=== PATIENT | female | born 1940 | race Caucasian/White ===

== ENCOUNTER 2023-04-05 08:27 | Outpatient (OUT) | payer MEDICARE, SELFPAY ==
--- NOTE | 2023-04-05 08:35 | MR_ITS ---
The [address] [address] Patient Name: LOLA ANDINO MRN: [id number] date: 1940 Sex: F Assigned Patient Location: MRI Current Patient Location: MRI Accession/Order Number: [id number] Exam Date: 04/05/2023 09:05 Report Date: 04/05/2023 11:08 At the request of: HALIMA HONG Procedure: MR head/brain wo/w con MR head/brain wo/w con COMPARISON: None. CLINICAL HISTORY: Dizziness. Right-sided hearing loss. Tinnitus PULSE SEQUENCES: Sag T1, Ax DWI, Ax T2, Ax FLAIR, Ax T2 3D, Cor T1 3 mm, Ax T1 3 mm + C, Cor T1 + C, Ax T1 + C GADOLINIUM DOSAGE: 13 cc [place] FINDINGS: There is no diffusion abnormality. There is mild parenchymal volume loss. There is mild to moderate T2 hyperintensity in the central and periventricular white matter. Additional T2 signal change of the basal ganglia and nat. 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 There is no mass, mass effect, nor hydrocephalus. The vascular flow voids are tortuous but patent. Postcontrast, there is no abnormal enhancement. The dural sinuses are patent The internal auditory canals appear symmetric. Normal signal in the cochlea and semicircular canals. The mastoid air cells are patent. Postcontrast, there is no abnormal enhancement. The orbits, sella and craniocervical junction are unremarkable. MR/MR head/brain wo/w con IMPRESSION: NO MRI EVIDENCE FOR ACUTE ISCHEMIA. MILD TO MODERATE T2 HYPERINTENSITY IN THE WHITE MATTER, BASAL GANGLIA, AND NAT. MOST LIKELY SEQUELA SMALL VESSEL ISCHEMIC CHANGE OR OTHER BENIGN PROCESS. UNREMARKABLE MR APPEARANCE OF THE INTERNAL AUDITORY CANALS Electronically authenticated by: DAVID ZIMMERMAN Date: 04/05/2023 11:08
[2023-04-05 09:56] LABS: Estimated GFR (African America >60 (>=60); Estimated GFR (Non-African Ame >60 (>=60)
== END 2023-04-05 08:28 | disposition home or self-care (01) ==
LOC: MRI 08:27
PROVIDERS: PCP Internal Medicine; Visit Provider Internal Medicine
DX: R42 Dizziness and giddiness (principal); H90.A21 Sensorineural hearing loss, unilateral, right ear, 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; H93.11 Tinnitus, right ear; G44.039 Episodic paroxysmal hemicrania, not intractable
CPT/HCPCS: 36415; 70553; 82565; A9575

== ENCOUNTER 2023-05-17 08:12 | Outpatient (OUT) | payer MEDICARE, SELFPAY ==
--- NOTE | 2023-05-17 08:32 | CT_ITS ---
The [address] [address] Patient Name: LOLA ANDINO MRN: [id number] date: 1940 Sex: F Assigned Patient Location: LAB Current Patient Location: LAB Accession/Order Number: [id number] Exam Date: 05/17/2023 08:26 Report Date: 05/17/2023 11:20 At the request of: HALIMA HONG Procedure: CT chest wo con EXAM: CT chest wo con HISTORY: Pulmonary Nodule R961.1 COMPARISON: 04/06/2022 TECHNIQUE: Axial CT images were obtained of the chest without intravenous contrast. Multiplanar reconstructions were performed. CHEST FINDINGS: Lungs/Pleura: The lungs are clear. Stable pleural-based pulmonary nodule in the left lower lobe on image 60 of series 4 measuring 5.2 mm. A couple of calcified pulmonary nodules are present, likely due to remote granulomatous disease. No pleural effusion or pneumothorax. Cardiovascular: The heart is normal in size. Mild to moderate coronary artery calcifications are present. The aorta and pulmonary arteries are unremarkable. Pericardium: There is a trace pericardial effusion. Mediastinum: Unremarkable. Lymph Nodes: No lymph node enlargement identified on this nonenhanced CT. Calcified lymph nodes are present in the hilar regions bilaterally, likely due to remote granulomatous disease. Bones: No acute osseous abnormality. Mild to moderate multilevel degenerative changes are present in the thoracic spine. Soft tissues: Unremarkable. Upper Abdomen: Unremarkable. CT/CT chest wo con IMPRESSION: 1. No acute abnormality of the chest. 2. Stable pulmonary nodules. Electronically authenticated by: TOREY JEWELL Date: 05/17/2023 11:20
[2023-05-17 08:40] LABS: Basophils Absolute Auto 0.1 10^3/uL (0.0-0.1); Basophils Percent Auto 1.1 % (0.2-2.0); Eosinophils Absolute Auto 0.2 10^3/uL (0.0-0.7); Eosinophils Percent Auto 3.6 % (0.9-7.0); Hematocrit 36.4 % (36.0-48.0); Lymphocytes Absolute Auto 1.4 10^3/uL (1.2-3.8); Mean Corpuscular Hemoglobin 32.8 pg (26.7-34.0); Mean Corpuscular Volume 99.5 fL (81.0-99.0); Mean Platelet Volume 10.6 fL (9.5-13.5); Monocytes Absolute Auto 0.4 10^3/uL (0.3-0.8); Monocytes Percent Auto 9.1 % (1.7-12.0); Neutrophils Absolute Auto 2.7 10^3/uL (1.4-6.5); Neutrophils Percent Auto 56.2 % (43.0-75.0); Platelet Count 307 10^3/uL (150-450); Red Blood Count 3.66 10^6/uL (4.20-5.40); Red Cell Distribution Width 12.3 % (11.0-15.0); White Blood Count 4.7 10^3/uL (4.0-11.0)
[2023-05-17 09:15] LABS: Anion Gap 12.9; BUN Creatinine Ratio 28.8; Calcium 8.9 mg/dL (8.5-10.1); Carbon Dioxide 28.8 mmol/L (21.0-32.0); Chloride 105 mmol/L (98-107); Chol HDL Ratio 3.1; Cholesterol 217 mg/dL (<=200); Estimated GFR (African America >60 (>=60); Estimated GFR (Non-African Ame >60 (>=60); Glucose 107 mg/dL (74-106); HDL Cholesterol 69 mg/dL (40-60); Potassium 3.7 mmol/L (3.5-5.1); Sodium 143 mmol/L (136-145); Thyroid Stimulating Hormone 3.366 uIU/mL (0.358-3.740); Triglycerides 110 mg/dL (<=150)
[2023-05-17 13:54] LABS: Free T4 1.08 ng/dL (0.76-1.46)
[2023-05-18 04:07] LABS: Triiodothyronine (T3) 136 ng/dL (71-180)
== END 2023-05-17 08:13 | disposition home or self-care (01) ==
LOC: LAB 08:12
PROVIDERS: PCP Internal Medicine; Visit Provider Internal Medicine
DX: R79.89 Other specified abnormal findings of blood chemistry (principal); E78.00 Pure hypercholesterolemia, unspecified; I10 Essential (primary) hypertension; Z79.899 Other long term (current) drug therapy; R91.1 Solitary pulmonary nodule
CPT/HCPCS: 36415; 71250; 80048; 80061; 84439; 84443; 84480; 85025

== ENCOUNTER 2023-07-29 08:15 | Outpatient (OUT) | payer MEDICARE, SELFPAY ==
--- NOTE | 2023-07-29 08:28 | MR_ITS ---
The [address] [address] Patient Name: LOLA ANDINO MRN: [id number] date: 1940 Sex: F Assigned Patient Location: LAB Current Patient Location: LAB Accession/Order Number: [id number] Exam Date: 07/29/2023 08:45 Report Date: 07/29/2023 16:49 At the request of: OMAR GUNTER Procedure: MR head/brain wo/w con EXAM: MRI brain and internal auditory canals with and without contrast. HISTORY: Sensorineural hearing loss on left. COMPARISON: MRI brain and internal auditory canals with and without contrast, 04/05/2023. TECHNIQUE: Multiplanar, multisequence MRI imaging of the brain and internal auditory canals with and without contrast. FINDINGS: There is moderate mucosal thickening of the left maxillary sinus. Mastoid air cells are clear. Nasopharynx is normal. Director Of Learning spaces are normal. Prior cataract surgery. Mild brain atrophy is stable. Large amount of chronic microvascular ischemic change again seen in the cerebral white matter. This is stable from the prior. No diffusion restriction. No acute ischemic infarction. No pathologic enhancement within the brain. No brain masses. There is no abnormal signal or pathologic enhancement in the internal auditory canals or inner ear structures. Cerebellopontine angles are unremarkable. No pathologic cranial nerve enhancement. No masses. MR/MR head/brain wo/w con IMPRESSION: 1. The internal auditory canals and cerebellopontine angle cisternal spaces are normal. 2. No acute infarction. Chronic microvascular ischemic changes stable. 3. No pathologic enhancement in the brain. No brain mass. Electronically authenticated by: KENZIE CARNES Date: 07/29/2023 16:49
[2023-07-29 08:29] LABS: Estimated GFR (African America >60 (>=60); Estimated GFR (Non-African Ame >60 (>=60)
== END 2023-07-29 08:16 | disposition home or self-care (01) ==
LOC: LAB 08:15
PROVIDERS: PCP Internal Medicine; Visit Provider Otolaryngology
DX: H90.3 Sensorineural hearing loss, bilateral (principal); H93.12 Tinnitus, left ear
CPT/HCPCS: 36415; 70553; 82565; A9575

== ENCOUNTER 2023-11-09 14:54 | Outpatient (OUT) | payer MEDICARE, SELFPAY ==
[2023-11-09 16:17] LABS: Basophils Percent Auto 0.8 % (0.2-2.0); Eosinophils Absolute Auto 0.2 10^3/uL (0.0-0.7); Eosinophils Percent Auto 3.6 % (0.9-7.0); Hematocrit 36.2 % (36.0-48.0); Hemoglobin 11.9 g/dL (12.0-16.0); Immature Granulocytes Abs Auto 0.01 10^3/uL (0.00-0.03); Immature Granulocytes Pct Auto 0.2 % (0.0-0.5); Lymphocytes Absolute Auto 1.4 10^3/uL (1.2-3.8); Lymphocytes Percent Auto 27.2 % (20.5-60.0); Mean Corpuscular HGB Conc 32.9 g/dL (29.9-35.2); Mean Corpuscular Hemoglobin 32.5 pg (26.7-34.0); Mean Corpuscular Volume 98.9 fL (81.0-99.0); Mean Platelet Volume 11.2 fL (9.5-13.5); Monocytes Absolute Auto 0.5 10^3/uL (0.3-0.8); Monocytes Percent Auto 9.5 % (1.7-12.0); Neutrophils Percent Auto 58.7 % (43.0-75.0); Platelet Count 336 10^3/uL (150-450); Red Blood Count 3.66 10^6/uL (4.20-5.40); Red Cell Distribution Width 12.3 % (11.0-15.0); White Blood Count 5.1 10^3/uL (4.0-11.0)
[2023-11-09 16:50] LABS: Alanine Aminotransferase 20 U/L (14-59); Albumin Globulin Ratio 1.2; Albumin Level 3.7 g/dL (3.4-5.0); Alkaline Phosphatase 152 U/L (46-116); Anion Gap 9.8; Aspartate Amino Transferase 15 U/L (15-37); BUN Creatinine Ratio 25.3; Bilirubin Total 0.2 mg/dL (0.2-1.0); Calcium 9.1 mg/dL (8.5-10.1); Carbon Dioxide 30.6 mmol/L (21.0-32.0); Chloride 105 mmol/L (98-107); Estimated GFR (African America >60 (>=60); Estimated GFR (Non-African Ame >60 (>=60); Globulin 3.2 g/dL; Glucose 107 mg/dL (74-106); Potassium 3.4 mmol/L (3.5-5.1); Sodium 142 mmol/L (136-145); Thyroid Stimulating Hormone 1.941 uIU/mL (0.358-3.740); Total Protein 6.9 g/dL (6.4-8.2)
== END 2023-11-09 14:55 | disposition home or self-care (01) ==
LOC: LAB 14:54
PROVIDERS: PCP Internal Medicine; Visit Provider Internal Medicine
DX: R53.83 Other fatigue (principal); I10 Essential (primary) hypertension; J47.9 Bronchiectasis, uncomplicated
CPT/HCPCS: 36415; 80053; 84443; 85025

== ENCOUNTER 2023-11-11 09:07 | Outpatient (OUT) | payer MEDICARE, SELFPAY ==
--- OUTSIDE RECORDS SUMMARY | 2023-11-11 09:12 | XMS_ITS | CCD ---
Author Organization [facility] Care Team Providers Care Mechanical Applications Engineer Name Role Phone PREET, DR VARGHESE Admitting Unavailable BALL, DR VARGHESE Attending Unavailable BALL, DR VARGHESE Primary Care Unavailable BALL, DR VARGHESE Consulting Unavailable BALL, DR VARGHESE Admitting Unavailable BALL, DR VARGHESE Attending Unavailable BALL, DR VARGHESE Primary Care Unavailable BALL, DR VARGHESE Consulting Unavailable WEST, DR MALCOM Correia Consulting Unavailable BALL, DR VARGHESE Admitting Unavailable BALL, DR VARGHESE Attending Unavailable BALL, DR VARGHESE Primary Care Unavailable PREET, DR VARGHESE Consulting Unavailable PREET, DR VARGHESE Admitting Unavailable BALL, DR VARGHESE Attending Unavailable BALL, DR VARGHESE Primary Care Unavailable BALL, DR VARGHESE Consulting Unavailable Preet, Lg Unavailable LORI GUNTER Attending Unavailable PREET, LG Bishop Referring Unavailable LORI GUNTER Attending Unavailable Allergies Allergy Classification Reported Allergen(s) Allergy Type Date of Onset Reaction(s) Facility (2 sources) Clindamycin Drug Allergy 3 [facility] Repository (12 sources) Penicillin Drug Allergy Unknown [facility] (12 sources) Aspirin Drug Allergy 5 Unknown [facility] (12 sources) Ciprofloxacin Drug Allergy 5 Unknown [facility] (11 sources) Clindamycin Drug Allergy Unknown [facility] Other (12 sources) Ibuprofen Drug Allergy 5 Unknown [facility] (11 sources) Fluticasone Propionate *NASAL AGENTS - SYSTEMIC AN Propensity to adverse reactions 5 Unknown [facility] Other (1 source) Penicillins Allergy to substance 3 [facility] (1 source) Fluticasone Propionate *NASAL Allergy to substance 3 [facility] Medications Current Medications Medication Drug Class(es) Dates Sig (Normalized) Sig (Original) amLODIPine 5 mg oral tablet (5 sources) Dihydropyridine Calcium Channel Meena Start: 05-10-2023 take 1 tablet by mouth every twenty-four hours amLODIPine Besylate 5 MG 1 tablet Orally Once a day for 30 days Apr, Active diazePAM 5 mg oral tablet (5 sources) Benzodiazepine Start: 04-01-2023 take 1 tablet by mouth every hour Valium 5 MG 1 tablet Orally Taken one time, one hour prior to MRI for 1 days Mar, Active lisinopril 10 mg oral tablet (11 sources) Angiotensin Converting Enzyme Inhibitor Start: 08-09-2022 take 1 tablet by mouth once daily Lisinopril 10 MG lisinopriL 10mg, 1 tablet daily # 30, 08/09/2022, Ref. x11. Active Oral daily Jul, Active sulfamethoxazole 800 mg / trimethoprim 160 mg oral tablet (1 source) Dihydrofolate Reductase Inhibitor Antibacterial, Sulfonamide Antimicrobial Start: 06-17-2023 take 1 tablet by mouth every twelve hours Sulfamethoxazol e-Trimethoprim 800-160 MG 1 tablet Orally Twice a day for 5 days May, Active Problems Active Problems Problem Classification Problem Date Documented Date Episodic/Chronic Anxiety disorders (11 sources) Claustrophobia; Translations: [Claustrophobia] Chronic Chronic obstructive pulmonary disease and bronchiectasis (11 sources) Bronchiectasis; Translations: [Bronchiectasis, uncomplicated] Chronic Conditions associated with dizziness or vertigo (3 sources) Dizziness and giddiness Episodic Deficiency and other anemia (4 sources) Anemia, unspecified; Translations: [ANEMIA UNSPECIFIED] Onset: 08-10-2022 Episodic Disorders of lipid metabolism (12 sources) Hypercholesterolemia ; Translations: [Pure hypercholesterolemia , unspecified] Chronic Essential hypertension (20 sources) Essential (primary) hypertension; Translations: [Essential hypertension] Onset: 05-06-2022 Chronic Genitourinary symptoms and ill-defined conditions (1 source) Dysuria Episodic Headache; including migraine (13 sources) Episodic paroxysmal hemicrania; Translations: [Episodic paroxysmal hemicrania, 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 Other aftercare (2 sources) 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 wall shear operator (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; Translations: [OTH BUSINESS SYSTEMS ANALYST CURRENT DRUG THERAPY] Onset: 05-10-2022 Episodic Other ear and sense organ disorders (20 sources) Bilateral hearing loss; Translations: [Sensorineural hearing loss, unilateral, left ear, 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] Chronic Other ear and sense organ disorders (2 sources) Sensorineural hearing loss, unilateral, right ear, 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 Chronic Other ear and sense organ disorders (11 sources) Tinnitus of right ear; Translations: [Tinnitus, right ear] Episodic Other ear and sense organ disorders (11 sources) Tinnitus; Translations: [Tinnitus, left ear] Episodic Other ear and sense organ disorders (2 sources) Tinnitus, right ear Episodic Other lower respiratory disease (6 sources) Solitary pulmonary nodule; Translations: [SOLITARY PULMONARY NODULE] Onset: 04-06-2022 Episodic Other lower respiratory disease (5 sources) Nodule of lung; Translations: [Solitary pulmonary nodule] Episodic Other screening for suspected conditions (not mental disorders or infectious disease) (1 source) Other specified abnormal findings of blood chemistry Episodic Residual codes; unclassified (1 source) Procedure and treatment not carried out because of patient's decision for unspecified reasons Episodic Retinal detachments; defects; vascular occlusion; and retinopathy (1 source) Tributary (branch) retinal vein occlusion, left eye, stable Chronic Past or Other Problems Problem Classification Problem Date Documented Da te Episodic/Chronic Other lower respiratory disease (4 sources) Hemoptysis; Translations: [HEMOPTYSIS] Onset: 01-06-2022 Episodic Results Test Name Value Interpretation Reference Range Facility Urinalysis - DIPSTICKon 05-23 Appearance (U) cloudy gate5 Other Bilirubin Ql (U) Negative [employer] Other Color (U) yellow [facility] Other Glucose Ql (U) Negative gate5 Other Hemoglobin Ql (U) 6.5 [employer] Other Ketones Ql (U) Negative gate5 Other Leukocyte esterase Test strip Ql (U) large [facility] Other Nitrite Ql (U) Negative gate5 Other pH (U) 5 [pH] [facility] Other Protein Ql (U) 17 [facility] Other Specific gravity (U) [Rel density] 1.020 [place] [employer] Other Urobilinogen (U) [Mass/Vol] Negative [facility] Other Urinalysis - DIPSTICK [facility] Other CBC AUTO DIFFon 08-10-2022 BASO # 0.0 103/ul Normal 0.0-0.1 [facility] Comment on above: Performed By: #### C BC #### [facility] [address] [place] [address] Dr. Bo Brown Basophils/100 WBC (Bld) 0.9 % Normal 0.2-2.0 [facility] Comment on above: Performed By: #### C BC #### [facility] [address] [address] [address] Bo Brown EO # 0.1 103/ul Normal 0.0-0.7 [facility] Comment on above: Performed By: #### C BC #### [facility] [address] [address] [address] Bo Brown Eosinophils/100 WBC (Bld) 2.1 % Normal 0.9-7.0 [facility] Comment on above: Performed By: #### C BC #### [facility] [address] [address] [address] Bo Brown Erythrocyte distribution width (RBC) [Ratio] 12.2 % Normal 11.0-15.0 [facility] Comment on above: Performed By: #### C BC #### [facility] [address] [place] [address] Dr. Bo Brown Hematocrit (Bld) [Volume fraction] 34.1 % Critically low 36.0-48.0 [facility] Comment on above: Performed By: #### C BC #### [facility] [address] [place] [address] Dr. Bo Brown Hemoglobin (Bld) [Mass/Vol] 11.3 g/dL Critically low 12.0-16.0 [facility] Comment on above: Performed By: #### C BC #### [facility] [address] [place] [address] Dr. Bo Brown IG # 0.01 10e3/ul Normal 0.00-0.03 [facility] Comment on above: Performed By: #### C BC #### [facility] [address] [place] [address] Dr. Bo Brown IG % 0.2 % Normal 0.0-0.5 [facility] Comment on above: Performed By: #### C BC #### [facility] [address] [place] [address] Dr. Bo Brown LYMPH # 1.2 103/ul Normal 1.2-3.8 [facility] Comment on above: Performed By: #### C BC #### [facility] [address] [place] [address] Dr. Bo Brown Lymphocytes/100 WBC (Bld) 28.8 % Normal 20.5-60.0 [facility] Comment on above: Performed By: #### C BC #### [facility] [address] [place] [address] Dr. Bo Brown MANUAL DIFF REQ NO Normal [facility] Comment on above: Performed By: #### C BC #### [facility] [address] [place] [address] Dr. Bo Brown MCH (RBC) [Entitic mass] 32.6 pg Normal 26.7-34.0 [facility] Comment on above: Performed By: #### C BC #### [facility] [address] [place] [address] Dr. Bo Brown MCHC (RBC) [Mass/Vol] 33.1 g/dL Normal 29.9-35.2 [facility] Comment on above: Performed By: #### C BC #### [facility] [address] [place] [address] Dr. Bo Brown MCV (RBC) [Entitic vol] 98.3 fL Normal 81.0-99.0 [facility] Comment on above: Performed By: #### C BC #### [facility] [address] [address] [address] Bo Brown MONO # 0.4 103/ul Normal 0.3-0.8 [facility] Comment on above: Performed By: #### C BC #### [facility] [address] [address] [address] Bo Brown Monocytes/100 WBC (Bld) 9.7 % Normal 1.7-12.0 [facility] Comment on above: Performed By: #### C BC #### [facility] [address] [address] [address] Bo Brown NEUT # 2.5 103/ul Normal 1.4-6.5 [facility] Comment on above: Performed By: #### C BC #### [facility] [address] [place] [address] Dr. Bo Brown Neutrophils/100 WBC (Bld) 58.3 % Normal 43.0-75.0 [facility] Comment on above: Performed By: #### C BC #### [facility] [address] [place] [address] Dr. Bo Brown Platelet mean volume (Bld) [Entitic vol] 10.5 fL Normal 9.5-13.5 [facility] Comment on above: Performed By: #### C BC #### [facility] [address] [place] [address] Dr. Bo Brown PLT 294 103/ul Normal 150-450 [facility] Comment on above: Performed By: #### C BC #### [facility] [address] [place] [address] Dr. Bo Brown RBC 3.47 106/ul Critically low 4.20-5.40 [facility] Comment on above: Performed By: #### C BC #### [facility] [address] [address] [address] Bo Brown WBC 4.2 103/ul Normal 4.0-11.0 [facility] Comment on above: Performed By: #### C BC #### [facility] [address] [place] [address] Dr. Bo Brown IRON AND TIBCon 08-10-2022 % SATURATION 41.4 % Normal [facility] Comment on above: Performed By: #### B 12FOL, FETIBC #### [facility] [address] [place] [address] Dr. Bo Brown Iron [Mass/Vol] 91.0 ug/dL Normal 50.0-170.0 [facility] Comment on above: Performed By: #### B 12FOL, FETIBC #### [facility] [address] [place] [address] Dr. Bo Brown TIBC DIRECT 220.0 ug/dL Critically low 250.0-450.0 [facility] Comment on above: Performed By: #### B 12FOL, FETIBC #### [facility] [address] [place] [address] Dr. Bo Brown VIT B12 AND FOLATEon 022 Cobalamin (Vitamin B12) [Mass/Vol] 987.0 pg/mL Critically high 193.0-986.0 [facility] Comment on above: Performed By: #### B 12FOL, FETIBC #### [facility] [address] [place] [address] Dr. Bo Brown FOLATE 17.70 ng/mL Normal 8.60-58.90 [facility] Comment on above: Performed By: #### B 12FOL, FETIBC #### [facility] [address] [place] [address] Dr. Bo Brown CBC AUTO DIFFon 05-06-2022 BASO # 0.0 103/ul Normal 0.0-0.1 [facility] Comment on above: Performed By: #### C BC #### [facility] [address] [place] [address] Dr. Bo Brown Basophils/100 WBC (Bld) 0.7 % Normal 0.2-2.0 [facility] Comment on above: Performed By: #### C BC #### [facility] [address] [place] [address] Dr. Bo Brown EO # 0.1 103/ul Normal 0.0-0.7 [facility] Comment on above: Performed By: #### C BC #### [facility] [address] [place] [address] Dr. Bo Brown Eosinophils/100 WBC (Bld) 2.6 % Normal 0.9-7.0 [facility] Comment on above: Performed By: #### C BC #### [facility] [address] [place] [address] Dr. Bo Brown Erythrocyte distribution width (RBC) [Ratio] 12.7 % Normal 11.0-15.0 [facility] Comment on above: Performed By: #### C BC #### [facility] [address] [place] [address] Dr. Bo Brown Hematocrit (Bld) [Volume fraction] 35.2 % Critically low 36.0-48.0 [facility] Comment on above: Performed By: #### C BC #### [facility] [address] [place] [address] Dr. Bo Brown Hemoglobin (Bld) [Mass/Vol] 11.6 g/dL Critically low 12.0-16.0 [facility] Comment on above: Performed By: #### C BC #### [facility] [address] [place] [address] Dr. Bo Brown IG # 0.02 10e3/ul Normal 0.00-0.03 [facility] Comment on above: Performed By: #### C BC #### [facility] [address] [place] [address] Dr. Bo Brown IG % 0.5 % Normal 0.0-0.5 [facility] Comment on above: Performed By: #### C BC #### [facility] [address] [place] [address] Dr. Bo Brown LYMPH # 1.1 103/ul Critically low 1.2-3.8 [facility] Comment on above: Performed By: #### C BC #### [facility] [address] [place] [address] Dr. Bo Brown Lymphocytes/100 WBC (Bld) 25.8 % Normal 20.5-60.0 [facility] Comment on above: Performed By: #### C BC #### [facility] [address] [place] [address] Dr. Bo Brown MANUAL DIFF REQ NO Normal [facility] Comment on above: Performed By: #### C BC #### [facility] [address] [place] [address] Dr. Bo Brown MCH (RBC) [Entitic mass] 32.6 pg Normal 26.7-34.0 [facility] Comment on above: Performed By: #### C BC #### [facility] [address] [place] [address] Dr. Bo Brown MCHC (RBC) [Mass/Vol] 33.0 g/dL Normal 29.9-35.2 [facility] Comment on above: Performed By: #### C BC #### [facility] [address] [place] [address] Dr. Bo Brown MCV (RBC) [Entitic vol] 98.9 fL Normal 81.0-99.0 [facility] Comment on above: Performed By: #### C BC #### [facility] [address] [place] [address] Dr. Bo Brown MONO # 0.4 103/ul Normal 0.3-0.8 [facility] Comment on above: Performed By: #### C BC #### [facility] [address] [place] [address] Dr. Bo Brown Monocytes/100 WBC (Bld) 9.5 % Normal 1.7-12.0 [facility] Comment on above: Performed By: #### C BC #### [facility] [address] [place] [address] Dr. Bo Brown NEUT # 2.6 103/ul Normal 1.4-6.5 [facility] Comment on above: Performed By: #### C BC #### [facility] [address] [place] [address] Dr. Bo Brown Neutrophils/100 WBC (Bld) 60.9 % Normal 43.0-75.0 [facility] Comment on above: Performed By: #### C BC #### [facility] [address] [place] [address] Dr. Bo Brown Platelet mean volume (Bld) [Entitic vol] 10.7 fL Normal 9.5-13.5 [facility] Comment on above: Performed By: #### C BC #### [facility] [address] [place] [address] Dr. Bo Brown PLT 284 103/ul Normal 150-450 [facility] Comment on above: Performed By: #### C BC #### [facility] [address] [place] [address] Dr. Bo Brown RBC 3.56 106/ul Critically low 4.20-5.40 [facility] Comment on above: Performed By: #### C BC #### [facility] [address] [place] [address] Dr. Bo Brown WBC 4.3 103/ul Normal 4.0-11.0 [facility] Comment on above: Performed By: #### C BC #### [facility] [address] [place] [address] Dr. Bo Brown PROF CHEM 8 (BAS METB)on Anion gap [Moles/Vol] 9.7 mmol/L Normal [facility] Comment on above: Performed By: #### B MP #### [facility] [address] [place] [address] Dr. Bo Brown Calcium [Mass/Vol] 8.8 mg/dL Normal 8.5-10.1 [facility] Comment on above: Performed By: #### B MP #### [facility] [address] [place] [address] Dr. Bo Brown Chloride [Moles/Vol] 103 mmol/L Normal 98-107 [facility] Comment on above: Performed By: #### B MP #### [facility] [address] [place] [address] Dr. Bo Brown CO2 [Moles/Vol] 28.9 mmol/L Normal 21.0-32.0 [facility] Comment on above: Performed By: #### B MP #### [facility] [address] [address] [address] Bo Brown Creatinine [Mass/Vol] 0.69 mg/dL Normal 0.55-1.02 [facility] Comment on above: Performed By: #### B MP #### [facility] [address] [address] [address] Bo Brown EGFR-AF MALAGASY >60 Normal >=60 [facility] Comment on above: Performed By: #### B MP #### [facility] [address] [address] [address] Bo Brown EGFR-NON AF MALAGASY >60 Normal >=60 [facility] Comment on above: Performed By: #### B MP #### [facility] [address] [address] [address] Bo Brown Glucose [Mass/Vol] 111 mg/dL Critically high 74-106 [facility] Comment on above: Performed By: #### B MP #### [facility] [address] [address] [address] Bo Brown Potassium [Moles/Vol] 3.6 mmol/L Normal 3.5-5.1 [facility] Comment on above: Performed By: #### B MP #### [facility] [address] [place] [address] Dr. Bo Brown Sodium [Moles/Vol] 138 mmol/L Normal 136-145 [facility] Comment on above: Performed By: #### B MP #### [facility] [address] [address] [address] Bo Brown Urea nitrogen [Mass/Vol] 15.0 mg/dL Normal 7.0-18.0 [facility] Comment on above: Performed By: #### B MP #### [facility] [address] [address] [address] Bo Brown Urea nitrogen/Creatinine [Mass ratio] 21.7 mg/mg Normal [facility] Comment on above: Performed By: #### B MP #### [facility] [address] [address] [address] CHEST WO CONon 04-07-2022 CT CHEST WO CON EXAMINATION: CT CHEST WO CON HISTORY: Solitary nodule of lung COMPARISON: CT chest 05/12/2021, XR chest 01/06/2022 TECHNIQUE: Axial, Coronal, and Sagittal images were created without the administration of IV contrast material. Dose reduction techniques were achieved by using automated exposure control and/or adjustment of mA and/or kV according to patient size and/or use of iterative reconstruction technique. FINDINGS: LUNGS: Mild bronchiectasis and mild emphysematous changes. A few tiny nodules scattered within the lungs and a few small pleural-based nodules; unchanged. PLEURA: No mass, effusion, or pneumothorax. VASCULATURE: No abnormality. POLO: Calcified lymph nodes. MEDIASTINUM: No mass or adenopathy. CARDIAC: No enlargement or pericardial thickening. AORTA: No aneurysm or dissection. CHEST WALL: No mass or axillary adenopathy. BONES: No bone lesion or fracture. LIMITED ABDOMEN: No suspicious findings. Limited images of the upper abdomen. OTHER: Negative. IMPRESSION: 1. Mild emphysematous changes and mild bronchiectasis. No acute infiltrates. 2. Stable appearance of a few tiny nodules scattered within the lungs and along the pleural surface. No overtly suspicious nodules. Consider follow-up imaging in one year. Electronically authenticated by: GALA TRIANA Date: 2022-04-07 06:[address] [facility] XR CHEST 2 Von 01-06-2022 XR CHEST 2 V EXAMINATION: XR CHEST 2 V HISTORY: Hemoptysis COMPARISON: 05/12/2021 TECHNIQUE: PA and lateral FINDINGS: LUNGS: No significant pulmonary parenchymal abnormalities. Underinflation VASCULATURE: No increased pulmonary vasculature. PLEURA: No pneumothorax, effusion, or pleural thickening. CARDIAC: No cardiomegaly or cardiac silhouette abnormality. MEDIASTINUM: No visible mass or adenopathy. Aortic atherosclerosis BONES: No fracture or visible bone lesion. OTHER: Negative. IMPRESSION: Hyperinflation, clear lungs Electronically authenticated by: MALCOM MAGANA Date: 2022-01-06 09:[address] [facility] Consent for Treatmenton 10-0 Consent for Treatment [id number] 1 [id number]#[id number]:127 Normal [facility] Coding Summary.on 05-18-2021 Coding Summary. [id number] OEg8dFb+PGhlYWQ+PE1 ZWLErG72ywWVqbV6AJ1 kKGS7XPYMDVBBBFN3TF P2dbAX1ZDegW5KwdfGy VbsgyEEnVP97XMz3VYZ 8aDimOSgxiG6xaPTfO4 g9JiFjHU05lC13QPcbQ WKdIeY0GuJweaersDRd I2oxSuGmvCXdUwg+PHR hYmxlIHdpZHRoPScxMD PfYqPbqEkxNK4bRw1kU GVyLWNvbGxhcHNlOiBj a3cvJSNaAHesDJ5mjJa aW2UudNZ7PPGfa9i8Cu 48dHI+UYIqZLD7kOoiF Vnzg901BfWhl1ikHDA8 xSVoKYhtCFZ8C80az1A 8MOFeGDLzXIX1mKZ0bT 4hzDocqbllR6LqgSAcI mD3QEZ1cDYbnC3tgIap hezxsD2oSyh+A04GCN3 XTIWKZX7DFrp4B8MkNs wvdHI+KC23YYHsSX57w KAktBEog2vihAw6NjZk ADVvEVA9kZfnFTnxs8P oRHBxQ66idPFva8A7VP PxeQcntYByOyYlaIX6t P0eAYxyqrevx5emdmmz Nklyj8bcab57bA43K19 cPSgmASObDSP3JGMyDU WmaLkiyv7juG0kAf3+I Wkwr3feo5nofXq2GmJp ATHaxuRrqVbuWBO5a7N hIu66X7VvlKkpz4DtOz m1gw67qBTzi7L3uWB3Y XkpWCCjsD1zNRfgQgV4 IJKvByGyfA73lADmYXh qYs5coXvxjScjEB0fKL VmlrizKAEmiM3qHFMio AJiiLmjQK6cOLNkdhev s969MqXmCLG6KFJgsGU vJ6WevT0wGqYbJQKiXS ZuL9GpgMZbWYcsU295I EaqOvB8GTIbejKbP6Ib GVHhxNxuYdQ8m2U5Es5 Jv9TcfyknFWW2ZIxjUU S7NcU9LcSuAeM2Q2CmY fd9EMAaoApqBD1lM2Tz FOPpxowwbaeotSZ7UBD fKXZruH24mONvSWmrHw 9fe8U8y237VEUhTQCgr R70Kq9iyBhfGAIouVKX eT0nresku3kxngwhCpU vKOZcLNd3HRf6EKZkdO ktCnOuKNM2IpX0EQK6b YHbrQ4roYmjzyugeC8k Oyc+Q09wuZ9jHOT1GIJ 1wichFHBzymMzZN79RF 68D8BtNitzmUHinRC+P BBzspTyqMaoCL1cNxUl p1krd5HvNUyrT6NmXNI oAElnFty2SVGaHSP7wB Y6yK3aZYScZWzjd3V5b HH2T0EbgpNzft8aq4bd ACGlFDkaL62opXAnu9T 9IILzoQQ0DHJsxQqfNq YxhP02Sky+PGNvbGdyb 4AeBohhh4ouy1unhGu2 IjMwJSIgdmFsaWduPSJ 3d4DuTl09X38uOWskRI RoPSIxNSUiIHZhbGlnb q8rpQ6lNe6+PGNvbCB3 dRM7wT1bSGImGwO1RHh mC643YiZljMKiPmrhl6 tob2kvdKb7WfZuKJGqp tIaqOtgLXL6l1WtRu57 R44eCRmrNEEfMUQtXAV cBRYtsLzwpf0uwA5pUu 8+AY6qe9apxy08vD10t HI+ZPOsXKD0cAejYEdj EPWcgB0vEOdsZlD3DTX aYtJhkO26uDQmIOrrIa 5vzFhzzLhmMG2nSKIlg prxl534UoBxv3eoIHTv bRCpVJwrWUD6K81fw5K 5JCSwRVCqHYC6nBU1jR 1hbGlnbjogbGVmdDsgd oLvyLtqYXmfNKdhG712 IHRvcDsnPlBhdGllbnQ uCcIfGHt8Z2XnQco9FU BrwClkUK0pfZRwXBndL y5xcHffgHyjSO2nSJGf jazhc921DaVnz5iyKGA lyERgIGtbZXI1U43em3 N5QKVeSWDpTZG9yVH8z P0xgQiqbelyxXXaqVvg bsVlbOtaKUheUUizN74 6IHRvcDsnPkJpcnRoIE PujNE7UR06JU49dGBwk 2U0fIZ3W5VwOQIgaeam kfedvTW0WOSsHPVdmE1 4Ut7fyOpjKm1kWSQsNH X8VKAgkVFkJ8IkoY3wZ pRlQOGoFYAlQ2QftOQe QKsuN478LBkjMlX2LRL ancDkE3QsFVMdjYssGp R0w2T9Fy6GJ5C0NK69E G18eOHre7Q7zXS8D7Uf QXOjggpjqklcfPD4EFO kSRPzcQ25Oq8lxCkzXu 4nXZVlIRI9GCBqyIYqG 7CozW2uIqLyXFJvXQCg F3UyqBGnRVfuC054TYd fUrJ8FPRybiLpZ1PtOC SlaOglWwK0t7F8Wj4WJ Ez2NZ76KW25rIKgz5G0 xPU9Y7TkZINkvvjyadb siUJ8OWMaTGCbpJ75Ru 4biPvhLk8zHKFpDEW8Q SRurFUbI8PajU6gRvQc SLYvXPWkS8SosOKpFMw eE553VZtgOgP6KRGkcv EmG5VfSWZrqKnoWgF8b 0I3Ns9AWXCmMO43RZG2 fLN2VU86WK03X0UaDya vdGFibGU+PHRhYmxlIH dpZHRoPScxMDAlJyBzd NrtRZ5qLx9cOXSvOELq qQhexSRlHhFaw2ivBZP gHZeeJV1evKblQ3EreT U8UFDcj1l0Cn09U61zM 3JvdXA+MVDeeRJ2mKF3 jL9oPnAuRrX2DLawZ36 9JoGkfCPtXqazs4ssm2 jlqOl6WsW4AWGzvvVja SzwZDJ9n5LcUk90K27w IHdpZHRoPSIxNSUiIHZ ymXfegp4dcB7mGi2+PG CwuDJ1fIK3zX7bEeMkD hM0UMobE399HqAopZLq Htkuf9uzt7vxhPv0FeC tPAEupfZyoAsqGJI7g6 MjIk79Y0FpgHvyw4DbE qx8mq12eJIvr7Q1aBB7 S6IhGRVzdqareNClaBx qZH2bMHNogghnKKKomR 3yCRMeQ2v9WmKzOsJ1W VggX9FbleN9ISKinPIa XFycZWR6P31vr2P0MEQ mDTFvZWN2fUS0zU8goL lnbjogbGVmdDsgdmVyd UnaPSglHLtbV868ZOSa cJujBSUggH8jVSQwyQA tnSitVN7cSYChwymoGs fSGs4OTrjvZ3JLA8mHE aVJKO88OG06mREgs5M9 lUR3X6VqSOIshioyvis ypZO2VXMaGOIapP35tQ NmMHjcEt6mo9I3w529P PErZKOafS05El8vbRwb UMNswDUWmE3nyurzi0s dgylkMpQhGTQfKBw1IL g0VMXktMvpKwOrDMX8R xS2UGB4cYKdxX2jbMca ciilhR2jSfg+MTAvMzE vMTkzOTwvdGQ+PHRkIH N7iRraILpeHYKulF2gR NBrF8j1DiXdTfV5CLjl Y2ExXBDrlefzGy38fQ9 iFpIrXcD4XRgxV3Ltmk X8WBVjiMPvHAulFKN8U 32tu0N9EJSfZWQgGGV1 jVD0jJ1ndLdigbgccZS mdDsgdmVydGljYWwtYW zlV605DMCirRmiHoxpF FdzFDUhKE75PN10dLPg a3W3qNK1L9NaGIDpmjj fpwhxtBZ7DFNiLEJanS 87yQQtBDakNv0lr0W0r 695NTImFRSedJ59Sc0l dQnsVGHirBBCgU3gwjc oc0nlukjhNrAzETBuBH l2CHh5QUWcdRygInAaX II0EiY2ODN8iZEkoE9t gKelcqkfuR8wByn+RmV aWBihFB79KI91wNNel4 B0uPC6I7QuQFTvgrsaf bdgtSY6NMMfGCArnA99 dQBaPJvlEo3lq4D4f23 8LWNtNPNprJ60Df3rcQ cpMOSblMTUoK7fmzzjs 4axvqqnFqWpNGSeRXt2 KBg5QZEviTgbMiVpEBD 9ElZ2IVE9lMHeiW3zjM eubsyueB3wLnj+T3V0c EE3yIXjyFdmkTV+PC90 ms10L6CnOztjAfo5SLR pPAS7pCW1aE4zEMXgRL zdw9B3zWY6D4VigjRai l5kw5ttNXYkCNixP22w eTKnw9F1HXMevYV9AZP ibXrgBcYeiH78Usk+PG VueNhkm7RuTuluh6rjx 3jrrTi7ToUpCIKolmYn zOgfNHX9u2DvOp66O69 sIHdpZHRoPSIzMCUiIH JrhBefke8fzY2lXi0+P DDjtET3mFY6uN0xPvQs HeC4XNobQ255NzYeuHI xRebng6rvy5abbZd3Qt VqKKVghtBzpMfqWYD7d 5SvNi38M5SeoCdof9Dn Zwm3fy62uJLty1A6wPW 2N4ZmUKFchdcyqGYlmX pzPD5oSOMqufenBOLpa T5cGLVuA8r5EkBgVwT0 NUrzK2LqsvH5FVZmnEJ eKYGofEDJzL4kpfwro7 afpeydWdRtXJFeYBp9T Ti2IUNlqDbfEwAqDRZ1 NgK2KQD4pVVtaS3htAy csuvvaH8eFdg+UGh5c2 ybkPYoNM8gcFR7PC39B J91eADzv4H9wND6W6Bw NQCgwtuzhcebbGT9DAL uIQEtuD39Ac3utFjwRx 7sXJKrPTR1MBHreIFyH 4OhoR4fEzExKHQgFBOu C8JtcQFbPEzrY454RGd xDoH5DLTyiiIbD4KoCY FtuUdlDhX9i4X0Gw4YN O40MH70FO28sQFfk0M4 aWZ1E4EvLJGuimjqpft ngVC8VRKxHLVweF45Yr 2eoQmlHm6dBTSjYZX9W PXvhRKlG3YilW6pQwBx DQNfUTLfJ4YclWEkYCv uM387XAuoYjV8WHFust LqD4CgUFFsrEpiJrZ9a 9J1Ki9KPf38MD97AM62 aFHtp6J7fQO5W0OeQDD wlxnetgqrrNG0PWFuVE PcsK66Jj5nnXjpGv4aC HLyDKJ0TBGytIIxD5Nz jQ9oElAxBZKoDAIlA9J ktFEeVMzqW392GFznQi G9UOAfvfMmQ2LzVFDrw YfkSuK6d1H4Ke0LQTip fsr7J7FhIqqttNG+PC9 7ZEOjKE56uRZonUCvr1 lotOs7JlNsQDDaFSI9t SrgTZxpe5WnFJEgI97u bGFw (more content not included)... [facility] Coding Summary. CD:[id number] DKq7zSs+PGhlYWQ+PE1 XTGQjO20dxXMvcS3WM7 aJCN4LLQKWPYCCEI0NE X4hqCJ5AFszC1YlbbOj EuadhNFcMZ65AVx4QED 1uIwbMOqhaY6xvLLeG5 v4CsRuHS42yB01ZMmzY DPnBhC7TlIdcrvltOLv M5wjNtWlwOEcMzt+PHR hYmxlIHdpZHRoPScxMD YlSnDohQspSE2mNd1pD GVyLWNvbGxhcHNlOiBj l4fbPHZzJJemGN8fkZf mJ7RgoUV2UMNxo9u8Pv 48dHI+XYIwQOO7oEggC Dnas835TcBrn1kxVEV1 qTOeZKltWEU5L47sx3B 7VXBhMHKaLBJ2pNY0lC 7sdBmvwrhxN2FbuPSzH gB9QFS0hGGveE4xfOqa wvlctB3dZnu+U43CLM8 UKQKHQM5JBrq7Z8XjSr wvdHI+BW39FHTcVD07l XWtoEIdc9rudGl9JuSg OGItLCX5tNtyLDqir5Z bDWKaK49mxPEdz2J8GR OzeHvwnYWyFeUsnCF9y R7dYPwcauiqj1fbezgi Inyfq3fdrt00aV32R96 gQHytKMFgGXP4YJOgPF PjrJwash5zwP9rGj0+I Rtlo9sii1wdvWc6EgUi ATTxwrGepSkuAQO6r7G xIu20R0BusTzcf1GsXf j6km92fGBjy2K9hQI5C MsoIMAnzR6fAGbjAuN0 KWKsZrRrkX96rDKnSOo pPs9zdXovuZboTD4bQH HnrwetHXHvkI0zKRKgi GBruGetAC4bJKWnchug s547BrQzKGH9VHTdrOM jD4PosE2jAjNnCAXtYT AfP2QbxRDiHEjgS337Q IooFjR6BGDbyyYhC6Gg RFCgrLquImS7y2I4Fw6 La7LftzlbKTE3DXnsYA W4AaLcLdInDaY4F3YwV bz3TKQsbMnsVN7oS2Jg TDKajuutgnbipFJ9CFQ nFZNhoU36zTUcBDxfAk 7qc5U2o299NQAhGXMln V07Hp6qlEozHABymMDN gU6kyspox4sajtwaCiZ cBDZlPPr9DZu2MIJnsC dnKdHtVMY6CsQ9VIO6y ZMieA2xxDjskarxkK5z Oyc+Q38qzJ9eUAT6DGL 5nwekOQQnnnGhFZ29WL 84X3YcThqbjSDqfJS+P UYungOeuDohVI9lAoAx p6kgo0DuOVlrX6XiLDN nIUtfIcw8KJVnBPT5gA W0tP7uETSlFXvuf3I9g BF8A7XmrmLxoa4rk1ui QESaAKdiG24yiGSpu0H 5VJDjaNQ7NCBmpTpeLs FsmQ72Fgc+PGNvbGdyb 0PzBbpzj7gai5mvdXi1 IjMwJSIgdmFsaWduPSJ 7x7FgCz34A66wBXpfAC RoPSIxNSUiIHZhbGlnb y7uiL7cTm3+PGNvbCB3 vON6dJ9lXWTwDzX7EAg xM543VeTunATrYjqcx5 pgx8jqrQp9ByZyLTCfs kYaxUfpQOR0c6BhVg73 R32lBHnqKAYqCCWyGXO bGQHxkOprib4lbZ0gCw 8+HN0nf4iztn91iR83n HI+LJKnESP7vWtaYKqt PGVmpT8gYXtlFsB4DEZ fYpIruJ90sOXpGUxxJn 9ugFrriOapCS8rVXIpe feqo952TtAzg9opMAVt pFGaLUjdOHG9L09bo6M 5ZXDtGFKePFP6gQF9sP 1hbGlnbjogbGVmdDsgd bGtvHdkIFxmQJrvZ896 IHRvcDsnPlBhdGllbnQ fWnXsXZo9J2KkIvo6FR UokRcsSW8tiGVmEYwqT a4bkYhbxTbpQA3iRKVg rjmnq276ZnDly2mrMLP ubCCyXIcfDGW0K68cc4 R4RIZsLAEdSOO1fCZ9i T5txSdqyzbocNAinOah jlUfeGhlWWbkCJjwK11 6IHRvcDsnPkJpcnRoIE RafOK9BL73PY42tVFeg 2V7pJC5K5CaPJDkvtsw qnkhzDN2JCUjMUIuiW7 9Cr0onKouFg9iRRBpMO C5HQTkhPDqX6WpbH7qE kGvFIDrQUKvA6BgmGPv LYvrY695JBjvFoO8MIN ldmYdH9OdHVNjtPfrDd O7t8J6Uh8IE4S3HI27F I14zBAhy2Y3xEY8A1Nz RDUlkbykxmqicJK5VGT pFXBhcS39Lr7eqWmtZp 1oYWFbIXO1LHTadVMoE 1CurA3qZkQsIOSiWANl I6SijMYmYHkdA849LKg fQoC5JXVugnJgE9GcMS DgdKaaTfM8z8O5Pi4ZD Qc3DB28SZ89aSOlm4X5 uFH0Q3KiGAItfpvclbg xmAF8JRFxMLEuzN32Zu 6uxQngTy1nAUVrHTD2E QIgoNTdI2BnwN6yYbDl RCOmTMSgF2ChrUNmLLp tJ461BUrrZmB9BSHqqi DuU1PjIRXwuIqhQkB2q 4W6Dx5TNGXiLM08BUH1 zPB0TR37ZS71T7ZqGnz vdGFibGU+PHRhYmxlIH dpZHRoPScxMDAlJyBzd ZuiPO7mMr1xELZnUUSq pYqmbGKvZyHet3teIQR bKXewAE0enDxiL8ZquQ D8QXZaa9p6Ov77W27qQ 3JvdXA+GRYovPE3kUV8 qA1pTkOjBwQ2GSquD67 6BkXtaCAyTlwmv4obm9 pieCo3QmI7PYErpgPfk CdsPYS5x0HnFg62Z79w IHdpZHRoPSIxNSUiIHZ enLrstq4miF9zSr5+PG NbfQK5xJF7yZ3hAgPhD bI7PLdmD390RuVegIKt Wdmfg2jqa9nhaZc5AmI oOWAfszRbfNzmOQZ4j3 OqTj15J7EgbMczo3LoH lv0ue62iVYpn2H8pNP6 R8AfNGUnmclawCBqgHc sNN5dIUKylohhXCTipL 1kVLDyQ0p2AcSiUlU0R UrqS5AvwpL2RMBfwJBc FWsjGYM8X33kl1M5BRI fEQYxZJP3yBK4xZ3zeH lnbjogbGVmdDsgdmVyd LwzIRxcRBgzS755IRMg vFzwMJPfxK7aXUKftTB wcVcuHC6xBZIyyrwuYj vDLz1UEhmpP7YIW7gTN oKFHV19IL57dQUze4Z2 qGI8B1KoFQXkgtlxxrt lwSN8UTJqNROpaB16xZ QeTLtlCj8xw0L6y818O FAwHULatT53Xu1vxBif QNSxqGBWdX8mrnkei9g kszxgXqUoIBNwUMt3LQ c2XCXwcRkpZhIaTLI4P eI3INX5yGVbfG2pzZcs uyrlxS6hHkg+MTAvMzE vMTkzOTwvdGQ+PHRkIH V0gViwFMzcRUGjxX4gM ECzW9r9RiRzCnE8QPdf Y9FgHLWztxvaGi98jD8 fVxYnCxB2KQihR9Kyfd I9JMQynEPzWEsgYOA6A 28ba9W5DOXmAJBeWSL6 dWO5jN8cyNgcjgkwiEB mdDsgdmVydGljYWwtYW zhV089YITieVbdMzhtV BykFONeTK58RI35vQSq p6G1xSM9F7NnLSEdpie sqwmlmOB0OLMwLAUmjJ 99bDXyZOnlXr5vi6Z7t 714IURkXDEkkT51Ni2l kFxiKZXveQEEjN3ybfk dq4wewsuuKvAqKTNuZJ k9LAs3NKMcuKhzRaMtJ CL1ErR5KWS5qTDicV3y kQkwtkohzY0wGbd+RmV fVCnyTX40KY33fLHav2 D2aNN5T9BhPVErzomdx irnxQQ1CDAyWKOuwJ48 fKKnTTklHc4rp9V5d19 6BNJsIHQbqE77Ev4saI lzKZAwhJYPiS7xvblqf 8vdokobWeOqLVHyHAh4 XLy4XCQovLlyEdDvEJP 8DeE5ZRO2pYQkrS9brJ jzugbssF8gNpc+T3V0c WD0rXMohCnsmKO+PC90 or67Z6ZfUbwfKyo3OWR hWJM4gZX3lJ9iMEMlBN ycs7J2uLP6S4GnozTbm f4mu6ktBVXtXZoxJ42x yEEqa0T5WAWepEP7TKB ayXwxIuYmyJ38Ltd+PG DoiYqtm5ZjKeczp9muy 1iutSw4McOiTSOxayNm oAqkPQQ9m6ExLf11U05 sIHdpZHRoPSIzMCUiIH FzsTwoyo7lmW8wKc7+P BZfcKN5zUY8aM7yKfLo XhX9DKewF713BiUbiSR aGqkti0nsq2tkaIc8Jr ByLOUnobQplLtwSIH9e 6PkSj23Y3DjmOqij6Kk Qxp0nc33gZVhg6D3qIT 6A1UxPMZjkqcwhXRdkU uaJO8dTIJxekasIAQko G4uSGIhO0b4TlMcIsZ3 NIizE5OuvuK2SUXbtYZ sIIXtjGDXmZ7qucljd2 oiieopQeFdOOXfUTi2B Zk5KEPpyNdtXcZkDEX6 HdD1HCF4pBDwuA7ffGs nxvyexT4bUsw+UGh5c2 ssmMKkLT5eyPN0OZ07M S68pYZcc0R0xKJ6B7Kv UCCgypzcqmofjIE0SXW yLCHxjL54Uq7qlWjzSd 4iCCFpVJS8YVGjqMPwX 2DbbA7iHgMhSULoVPBv W8WxxKPdTFnoT787VFh dImH6DXWlrcCgV3ZxYG MeiBzlKgD3m3V8En2GB X94HD35FR93yMSqq1H3 dUW7K0GmZIOmkyikcws iyMY9XZElPEFtyL38Va 4hiYhmXn1zCRUcNOG6B JWoeHCoO5TerF2oTrQw JLIaZCMeN9WkoIFoVFm wG222KQloWjC2MPPzjr KxE6EdMCZehZnsEbV8b 4A6Cr5RFk82ND54UZ27 wWAfo2X3rGZ9K9LvBGG vwuipigsnpYZ9EVVqHA GiaE04Tj2fuCxkPl9iZ NAzIKD5XCIynZRqX5Yx qY0cFyHgGHSuPMQoY3D gyBRlRIbpW599LSfaQo C4MDJwiuFdL7EqWLAer TzfNyC5q8I1Cx3CNBti vqs3I6OvBveuwOW+PC9 0UAKrCX04wQBhyNFaj1 qjuIm4IvGlICQbNKY4d KmoNQbqa7QzBZSaW28y bGFw (more content not included)... [facility] Consent for Treatmenton 04-23 Consent for Treatment [id number] 1 [id number] 76#1.00CD:127 [facility] Heart and Vascular Office/Cl inic Noteon 05-11-2021 Heart and Vascular Office/Clinic Note History of Present Illness Lola Andino is an 80 year old female without significant cardiac history. She presented to [facility] 04/19/21 with complaints of chest pain. Onset was day of presentation, abrupt waking her from sleep. She describes three sharp shocking sensations to the left chest, lasting only seconds. She had some associated nausea, but also endorses dysuria and suprapubic abdominal pain. The chest pain was severe and worrisome, prompting ER evaluation. On arrival, ECG show sinus rhythm with first degree AV block. Her CXR without acute findings. Labs with negative troponin trend negative x 4. BNP normal range. She did have elevated BP, has been receiving IV Hydralazine. She was admitted for observation with cardiology consultation. At time of exam, she is comfortable. Vague about her chest discomfort, but reports resolution on final rounding. She seems most concerned about suprapubic pain and dysuria. She remains hypertensive, telemetry shows normal sinus rhythm without events. Patient's previous stress test from 04/30/2021 is as follows: (04/30/2021 16:28 EDT NM Myocardial Spect Rest/Stress 1 Day) CONCLUSIONS: Negative Lexiscan nuclear stress test. Low risk stress. Patient now returns for follow-up and to go over her test. She denies any chest pain or angina, but does complain of occasional dyspnea on exertion walking up a flight of stairs. In our office today her blood pressure is 169/80, and increased to 171/75 with a pulse of 77 and regular. Blood pressures at home range between 113 and 146 systolic. Physical exam is as below. Review of Systems Constitutional: no fever, no chills, no weakness, no fatigue Respiratory: no shortness of breath, no cough, no orthopnea, no wheezing Cardiovascular: no chest pain, no palpitations, no edema Neuro: no dizziness no light headed no syncope Additional ROS info: Except as noted in the above Review of Systems and in the History of Present Illness all other systems have been reviewed and are negative or noncontributory. Physical Exam General: alert, no acute distress Neck: Supple, noJVD nocarotid bruit Cardiovascular: regular rate and rhythm, no murmur normal peripheral perfusion Respiratory: Lungs CTA, respirations non labored Extremities: no edema Neurological: oriented x 4, LOC appropriate for age, sensation equal & normal bilaterally, speech normal Skin: Warm, dry, intact- no rash or concerning lesions Assessment/Plan 1. Dyspnea on exertion: Patient's blood pressure in our office is fairly elevated although her blood pressures at home are relatively okay. She has never taken her blood pressure after walking up a flight of stairs when she is dyspneic. Her stress test shows no overt ischemia so would recommend holding off on catheterization at this time. Would recommend increasing her lisinopril to 10 mg p.o. daily and repeating blood pressure check in 2 weeks time. She is going to go to a nutritionalist in the next week or so to evaluate a lung nodule which may be contributing to her dyspnea. 2. Would hold off on any cardiac catheterization at this time unless or until the patient's dyspnea on exertion worsens despite maximal medical therapy. 3. Return office in 4 months with Haley and in [address] Jacques. Follow-up No qualifying data available Problem List/Past Medical History Ongoing No qualifying data Historical No qualifying data Procedure/Surgical History Bilateral tubal ligation. Medications aspirin 81 mg Oral EC Tab, 81 mg= 1 tab(s), Oral, Daily lisinopril 5 mg Tab, 5 mg= 1 tab(s), Oral, Daily Allergies amoxicillin (Hives) penicillin (Hives) Social History Alcohol Substance Abuse Tobacco Family History Heart failure: Father and Brother. [2] NM Myocardial Spect Rest/Stress 1 Day; Tristan Shin MD 04/30/2021 16:28 EDT [facility] Comment on above: Result Comment: Elec tronically Signed By: Sawyer SINHA, Nico Long.br\Date and Time Signed: 05/11/21 11:15 EDT Stress EKG Tracingson 2020 Stress EKG Tracings [id number] 785#1.00CD:127 [facility] NM Myocardial Spect Rest/Str ess 1 Dayon 05-02-2021 NM Myocardial Spect Rest/Stress 1 Day Exam Date/Time: 04/30/2021 16:28 EDT Reason for Exam: Chest pain/anginal equiv, 10yr CHD risk 10-20%, not treadmill candidate;Other (please specify) Report PROCEDURE: Lexiscan nuclear stress test. INDICATIONS: Chest pain. PROCEDURE DETAILS: The patient was stressed according to Lexiscan protocol without event. The patient received 10.1 mCi of Cardiolite for rest images and 29.2 mCi of Cardiolite for stress images. Baseline EKG was sinus rhythm with borderline prolonged QT. During Lexiscan infusion, there were no significant EKG changes. The patient did have some PVCs and hypertension with blood pressure in the 221 range. Review of raw images demonstrated no significant motion or attenuation artifact. FINDINGS: Uptake of the tracer was homogeneous with no identifiable ischemia or infarction. TID ratio was 0.89. The EF was 75%. End-diastolic volume was 69 mL which is normal. CONCLUSIONS: Negative Lexiscan nuclear stress test. Low risk stress. FINAL REPORT Signed (Electronic Signature): 05/02/2021 10:12 am Signed by: Tristan Shin MD Transcribed by: [email or web address] Technologist: JAELYN Technical Comments Rest Dose (mCi Tc99m Cardiolite): 10.1 Stress Dose (mCi Tc99M Cardiolite): 29.9 [facility] Coding Summary.on 04-23-2021 Coding Summary. [id number] YDk4wXh+PGhlYWQ+PE1 OHPXuD32zkRGypK8XP1 vZKR7JMTHVSLOAQB2CH B6hgUD0EYdlX8FyolTe VudeoNUlAO51VPs2WRP 5hWsgSNevbS8htEDmJ4 f8HcIyJP71mJ45DDufB SEaCvM4YdRutgswoDEv S9cxXkQkcHYmPgh+PHR hYmxlIHdpZHRoPScxMD EiZiThlIspHZ6bVg3kT GVyLWNvbGxhcHNlOiBj o4rkSWTqNHhcQR8sqGb pU4NekJK5CIOlh1t7Pz 48dHI+MGWuJVV9kZayA Fbwb605TqNxj2jlTAO2 eMCmAQjdVNK0N61br0D 5FNNiHUPeKQF1aZV1bJ 1znBhmrbvcA2XhpKAmU uF3LJE2bUDbyL3niNgh khdvvJ9sVhu+K90UMK3 HSHUBHR7AWhw0A2EyBl wvdHI+OG55DIZyVV26o LMxuBJbw0bavVv7RjVj ZUVsVFJ2fKulUPhfu7F vQIAzN41dnYSjf0B9CW ZbhFvekWDrMlKhkKL8g C8gAVmpcatkn9typkkt Xezij5exhy36cH14L80 wGMnnCPQdFXZ4GVJrPF LspXkdwy1zaF8pVa4+I Qzbk6vrc5ffdIk8XhRm NFUkldRgxIctLRT9z1B iZg80X3PmxRfpo7BnZw n7zw53mFMwc7A3nDJ2U XbiITLxnL2cANldToG6 LLIjLbXfmA18kBZvLEy sKu4ynNtbtQsaSF4tYK PvqwjgRZNwqG9nWQNsx ZQhmFtuXU4pBUGyxpbw s633SjSlFQG7ILVvdFB rA6ZywI4lUuAzNLRxVH DmS3QmxBIaHUznI145D NpyJzV5QFHmjsEzA4Nx NQRzfLmaRbD1l5K3Bl2 Ny6BetakyELI6LEwbIA O2BeUeFnQzXyX8A4VhE xs7LJAxbHutIB2rG1Sk GWFsitaqszirhPQ4VMZ lHRSivH31qCAyUOnbWq 3xq4S0z911EKCrFVThm Z71Bp5nhYazOWTkdVAJ lU3bhwvnt2akhewsVrG yTGBhUAb6DMa5WUUapY fqPnRlTED8CoT5TBR1t WXooQ6njCgyzkmyhL9g Oyc+V23faE1bDUU7NVW 4dqnwTXLbqkBxWS25JX 57D4AmFxxilSGmeRG+P CBswiOafSdfYV6dAyGd a9ved9LsNEetF4BqZJL jADcaItg8QZIlHOI6rP S9gW0kIDNjJCbfj3W5y OQ1Z0AvvbTynb5bi7xe EZUkKMjhR84ubSYiv8Y 7OFUsqOI6GPLqiJxsPn PdjE87Nlu+PGNvbGdyb 1WfZsvye7nop3zzzHy0 IjMwJSIgdmFsaWduPSJ 6c5DfXc35Y37tKShyNM RoPSIxNSUiIHZhbGlnb y8tuT1eNf9+PGNvbCB3 jDN2bE3iUOBjHmB6WYt pP189HkUdoBWpMqyxj8 pcl5rpaAm1SxRoKHMxn zNfgEdmCCD3i5RuOr32 T80rSDyuSOVkIUFtWCE pXEKjoIuyau9gsI5mMp 8+KX9rl7gvob80aZ18z HI+NDCcQVB1mZrjDStf QCBrmC3bGKmzVmS9UEG vElMhzP56yACxMBdsPh 0oaTuhlGzkZY4aOVDtn lrba712HnZjx8itRYAn sWIlJNufKBR7A02yd2Y 2WNDpGOOuYQF7lIV8eD 1hbGlnbjogbGVmdDsgd vYxfCquTGpmUMwyD300 IHRvcDsnPlBhdGllbnQ zTvAsOPn2D6KtXzu4AG QftGmcVJ2iyCLxJWowO n8nvInidTffFV2tNEEy gizog912HeZbr6hvWCV waYYxGMflUOZ9R75lt4 M9MPBiUQQnJNN6fMW4f V2hkXgdgspdrLRfrEip ujCooFjtYMgiDUmtK47 6IHRvcDsnPkJpcnRoIE JfpBF7ZE31JZ65pLUvh 4N8pSM7A0AmALTqtlcq taejhUX5ZYLeTDXeqV2 8Ad9xoSroUa5vJBQjWQ G4BVGhgTUtJ5IrlM7vA uZyDPQcMDIjE2GsyPAm WFypD819ZXdbFbJ5CKE phuMtX9JdRBPvaWgtDr C6w1H8Mx7VK3L8TH61B P10jUTtz4P6jOC0F9Zd JWIifegjsenyhSE0OBQ dSJUuvY51Kt1ebTfoWx 6sPELeIFT4AETrnRSvW 4YgjF9cPkNmQOKlWXDu Y0YetAZoCRhaK062SVe sBdD1PYAysuVxH4UzAL HyzXrkBsR5z3V5Pi9TL En1NC67HZ64kFMfe8G1 bKK7N9YxBUOolcvsxdp qvKQ3EPRtBIQxiZ15Uy 4utWvwBh3sOCVlYUQ8L UUfiMTlK1MtaH8kPiZi EOUiWEGpK9HqyNHrOCj dR982TBpdRkA2JUYhhv HoJ7RrMGHdiGxyWyY0s 2M5Au1SXGDbEL35NKN8 aRE7QU47TI06I7JjDvp vdGFibGU+PHRhYmxlIH dpZHRoPScxMDAlJyBzd OkvMZ0wBv2uBNOzWATf xHjzlQXwGrEar8nuUKB tJEisKM4mkWytD8EekE P4KOEpi5g2Mg24Q18eW 3JvdXA+UOPblFY6mXC4 zF7zSdQkMtJ9UYhbW57 7RjFocCLyBxvjk1jxh4 kbqKc0JiI9TLEsleGfn VjdFBV8j3CrKe38Q68m IHdpZHRoPSIxNSUiIHZ cmJjoyr7meD3mDi4+PG PluAU9pLG2sN0mSiNqA iK3ACtaI700PfLjiVQo Ogzzn5fot3nmvUm4McJ pNEQsjcEhjSbjNPH9r4 DgYd72N5YjgNfaw5PeU tg6ie85vLNip2T1lIU3 U7HiIXDnqndqeWVpgLy bLM0aUUPipsamTVBwfE 3qLEVxD8c8KtIcXrI6W XkdX7SvenY0ZGWjsKXu FMxgLMB2T63rz0T3QWN fAQWbZAH5tDA4kO5eiN lnbjogbGVmdDsgdmVyd CdtYIbnNYeyZ996DGPa xHxvOSQfzO9nITTzqCG hpBpvOW6sISFnxdhcFc bEXy8EXagbH2CNV3dRJ lDUDM15VB86hHFrq9X4 mDR2J5RzZKZxyivdajr wlNI8YJSnUKTbsB30kA LnYJtlGn4rx6Z9i572A USuBEPvbM89Qv7twXac AJRzhWGWlT5lmitcs8u uhytcYaAcFLHcDTl1CC j0UWStyVldNlVjJTM9S xT4WVO2yNBsvA5btBqw mmxggM1yBro+MTAvMzE vMTkzOTwvdGQ+PHRkIH T4rAdySOouJRBpeM6fX DLvB0q2SgDgZvZ8LYce X8SuKASonfyiQg86uI7 sLtUyMhK4HTlmQ8Tbde V0DJMomWGjJZjyFJA3K 38xl3H4WAIaOWNdODT3 vPI9pJ0xyNuclenjnYF mdDsgdmVydGljYWwtYW pxW514SKJdbKnmGxglC RemCWXrYO62EV29qROa o8A5xPO1Q9CtTERgbze ziommkKB0SQWyTCYarB 25tOXgNIsuGn4kq1M6p 107WLJkBIVlpO38Dd9f aYfyNQYylNLXpI1lmvu wp1qlzqoyDlDwRCPrYT m1AIa0UBChwVahUmXfI FC4SbW7FOB7bAJkdN5r eWkawbpqzQ8uZac+RmV tGKpmPP08TV69fYRjz7 I8sYZ9D8ZvNXKdrhtiy cfalXY0AVYhGCJroS51 bDOhWNftJw5zu3M9a96 3UXDlGHBxdU16Af6yzZ tuBZEgqQOAvE4ntovfq 8vsegwlZdItZDLuPNx6 ITa6MRXfwFuwWpYcUOH 7FjM5VQI6gLSvdU5qiK lrwyathO5sIiq+T2JzZ RR5KXNnv805X7QeOuii dHI+ZT98HYJiXN33bTC ucBNpo1jayMu9DuUtWF DuQJO9pDtiQOwlj4MyQ BVqL72qwXWyn5J5BBFe mPaxrVVjKaSgvKH1rS9 cNCnsolgkd8rgibxqBo ncr7syae35cN43P82fU HdpZHRoPSIzMCUiIHZh nZrurk0joF1mGo2+PGN yxNQ2dBX5sP6tVqRdBk F0AHzeU608HzTnfGSkM hksf3sqi5ceuJh5SuJw KCMcnlEjkVmtWJU3b2P uMd49H59mRNllEBAtQT YdVKEiKOUezNhalr9eg G9wIi8+GG5rz0iost33 oI94oBR+MFNvASO0hAi aDRinPVRdbE8lAFpuYr S0SMVqPdAimF38bXVuJ TxmKu0cgVrjmYxkQZ5g ESPzmsaec824FsHcg7d vRNInlPHgJSqoWKJ4P8 1ev7A5LHPuNTMvMOP4y WT3pO6gvGaeventxAOy dDsgdmVydGljYWwtYWx wL715YFGdnYppAhKxvO VtP9abpoRYES3dUqlid GQ+ZLPoMRE2wEhsEMlt QWNweG1yATCnL8a2DwP hWgW1ENgfR1LtzbH3ES InjBVhFKIvdDKWaQ5uh vnda5rbcxdyHmFwIJSx XQb3MHn8XDUxaYavWmY hZPK2UiP4FLS1jUVtsC 7ivCufbiyeoU5sYix+R klOOjwvdGQ+PHRkIHN0 iGzeSJbeWZGnqD3pDHO uP4m8JwXzMaR3HBhoT6 AlfyI3KNIcnFDoUPPwm FZGoJ4aflxqy3qmuoyn UmLcSWVzOOu5OQk5EHC apJbbWsIfCMI0YpY1YJ S9pOKuqE3vjTowgbhwj G9wOyc+TVJOOjwvdGQ+ FPZdKQP0fXfqWOemTSY cgQ6nVSZqM9k9LeYfLl A5MYdxI6EupcO7IXHyj EGxULCanKPLgM6fmosj o1gnewznBlGfUTEtNBy 5RGf8AORqeKkvTxZzUL V6SbW4DFN3wGOjhB6wb DoeboeykG8tRdc+UGF5 MYM1UA75AW40G2SbXdn vdGFibGU+PHRhYmxlIH dpZHRoPScxMDAlJyBzd FfeVA1pLk3xRWWgTAUm bGxh (more content not included)... [facility] Interdisciplinary Note - Eric e Manageron 04-23-2021 Interdisciplinary Note - Lactation Consultant ED: [facility] H/P: Isaiah Profit: partial PIS (OBS/IN): OBS 04/19/20211920, TF: 04/19 1850 Chgs: D/C: VTE: MCG: +OBS/CP, -IP/CP Tele-yes ICU: <2mn-yes [facility] (tests): no imaging at this time Readmit: no MM: OBS: ED: [facility] H/P: Susanne Profit: done PIS (OBS/IN): OBS 04/19/20211920, TF: 04/19 1850 Chgs: done D/C: done VTE: na MCG: +OBS/CP, -IP/CP Tele-yes ICU: na <2mn-yes [facility] PAT (tests): no imaging at this time Readmit: no MM: done OBS: done Normal [facility] Comment on above: Result Comment: Elec tronically Signed By: Scott LEZAMA, Avani Ventura\.br\Date and Time Signed: 04/23/21 15:59 EDT BMPon 04-20-2021 Anion gap [Moles/Vol] 15 mmol/L Normal 6-16 [facility] Comment on above: Performed By: #### 2 [id number], [id number] #### [facility] [address] [place] [address] Calcium [Mass/Vol] 9.2 mg/dL Normal 8.9-11.1 [facility] Comment on above: Performed By: #### 2 [id number], [id number] #### [facility] [address] [place] [address] Chloride [Moles/Vol] 106 mmol/L Normal 101-[address] [facility] Comment on above: Performed By: #### 2 [id number], [id number] #### [facility] [address] [place] [address] CO2 [Moles/Vol] 25 mmol/L Normal 21-31 [facility] Comment on above: Performed By: #### 2 [id number], [id number] #### [facility] [address] [place] [address] Creatinine [Mass/Vol] 0.6 mg/dL Normal 0.5-1.3 [facility] Comment on above: Performed By: #### 2 [id number], [id number] #### [facility] [address] [place] [address] Glucose [Mass/Vol] 124 mg/dL Normal 55-199 [facility] Comment on above: Result Comment: If t his glucose result represents a fasting glucose, interpretation should refer to the following reference range: 55-99 mg/dL Performed By: #### 2 [id number], [id number] #### [facility] [address] [place] [address] Potassium [Moles/Vol] 3.7 mmol/L Normal 3.5-5.3 [facility] Comment on above: Performed By: #### 2 [id number], [id number] #### [facility] [address] [place] [address] Sodium [Moles/Vol] 142 mmol/L Normal 135-145 [facility] Comment on above: Performed By: #### 2 [id number], [id number] #### [facility] [address] [place] [address] Urea nitrogen [Mass/Vol] 15 mg/dL Normal 5-21 [facility] Comment on above: Performed By: #### 2 [id number], [id number] #### [facility] [address] [place] [address] Urea nitrogen/Creatinine [Mass ratio] 25 No Units High 10-20 [facility] Comment on above: Performed By: #### 2 [id number], [id number] #### [facility] [address] [place] [address] Cardiology Progress Noteon 0 04-20-2021 Cardiology Progress Note Cardiology Consult Received- full note to follow Reason for consult- Chest Pain Lola Andino is an 80 year old female without significant cardiac history. She presented to [facility] ER 04/19/21 with complaints of chest pain. Onset was day of presentation, abrupt waking her from sleep. She describes three sharp shocking sensations to the left chest, lasting only seconds. She had some associated nausea, but also endorses dysuria and suprapubic abdominal pain. The chest pain was severe and worrisome, prompting ER evaluation. On arrival, ECG show sinus rhythm with first degree AV block. Her CXR without acute findings. Labs with negative troponin trend negative x 4. BNP normal range. She did have elevated BP, has been receiving IV Hydralazine. She was admitted for observation with cardiology consultation. At time of exam, she is comfortable. Vague about her chest discomfort, but reports resolution on final rounding. She seems most concerned about suprapubic pain and dysuria. She remains hypertensive, telemetry shows normal sinus rhythm without events. PE- Elderly female, a/ox3 no distress. Regular S1, S2, Lungs are clear, no edema, no focal deficits A/P Chest Pain Atypical chest pain, AMI is ruled out She is agreeable to out patient follow up/ischemic evaluation Hypertension Will begin SÁNCHEZ and up-titrate for BP control Will check UA with cx given her dysuria c/o. Updated Dr De La Garza re: above - patient to FU with Dr Shin Patient is seen and examined with Dr. Shin. [facility] Comment on above: Result Comment: Elec tronically Signed By: Haley DARLING CNP\.br\Date and Time Signed: 04/20/21 10:36 EDT\.br\Electronically Co-Signed By: Kip SINHA, Tristan Ashley\.br\Date and Time Co-Signed: 04/21/21 05:44 EDT Consultation Noteon 04-20-20 Consultation Note Chief Complaint Sharp pains in chest weakness and tremors Reason for Consultation Chest pain History of Present Illness 80-year-old female with no prior cardiac history. Comes in with complaint of 3 sharp sudden painful chest episodes that came in succession and woke her from sleep. She has not had any prior episodes of such. She subsequently felt short of breath and had some chest heaviness. She now feels better with no complaints. Her blood pressure was high when she checked it. She denies any orthopnea or nocturnal dyspnea. She denies any palpitations or syncope. She denies claudication Review of Systems Constitutional: no fever, no sweats, no weakness Skin: no rash, no lesions, nobruising/petechia e ENMT: no sore throat, no congestion, no hoarseness Respiratory: no shortness of breath, no cough, no orthopnea, no wheezing Cardiovascular: Yes chest pain, no palpitations, no edema Gastrointestinal: no nausea, no vomiting, no diarrhea, no GI bleeding Genitourinary: no anuria/oliguria no hematuria Musculoskeletal: no back pain, no trauma Neurologic: no headache, no dizziness, no numbness, no weakness Psychiatric: no sleeping problems, no irritability, no anxiety/depression. Heme/Lymph: no bleeding tendency, no bruising tendency Allergy/Immunologic : no recurrent infections, no impaired immunity Additional ROS info: Except as noted in the above Review of Systems and in the History of Present Illness all other systems have been reviewed and are negative or noncontributory. Physical Exam Vitals & Measurements T: 36.7 ?C (Oral) TMIN: 36.7 ?C (Oral) TMAX: 36.9 ?C (Oral) HR: 80(Monitored) RR: 16 BP: 131/79 SpO2: 97% WT: 64.6 kg General: alert, no acute distress Skin: warm, dry intact Head: atraumatic, normocephalic Neck: Trachea midline, no JVD, no bruit Eye: normal conjunctiva, sclera clear ENMT: oral mucosa moist Cardiovascular: regular rate and rhythm, nomurmur normal peripheral perfusion Respiratory: Lungs CTA, respirations non labored Chest wall: no deformity. Gastrointestinal: soft, non distended, no tenderness, no guarding. Back: No tenderness, Normal ROM, Normal alignment. Extremities: no edema, no deformity, no trauma Neurological: oriented x 4, LOC appropriate for agesensation equal & normal bilaterally, speech normal Psychiatric: cooperative, affect appropriate for age, normal judgement, normal psychiatric thoughts. Images EKG: Normal sinus rhythm no ischemia Assessment/Plan Atypical chest pain probably noncardiac. Did have hypertension and this could represent some form of hypertensive urgency although that typically does not have 3 sharp chest pains in a row. I would recommend patient is acceptable for discharge and follow-up as an outpatient for further testing to include echo and stress test. Additionally recommend blood pressure management. It appears that no additional blood pressure medication was added however the patient's blood pressure acceptable at this time at 131/79. We will recheck as an outpatient and see if perhaps she does indeed need more blood pressure medicine. Thank for this consultation 1. Chest pain, (R07.9: Chest pain, unspecified)Chest pain, unspecified 2. Essential (primary) hypertension, (I10: Essential (primary) hypertension)Hypert ension 3. DVT prophylaxis, (Z29.9: Encounter for prophylactic measures, unspecified)Encount er for prophylactic measures, unspecified Problem List/Past Medical History Ongoing No qualifying data Historical No qualifying data Procedure/Surgical History Bilateral tubal ligation. Medications Inpatient acetaminophen 325 mg Tab, 650 mg= 2 tab(s), Oral, q6hr, PRN aspirin 81 mg Chew Tab, 81 mg= 1 tab(s), Chewed, Daily heparin 5000 units/mL Inj, 5000 unit(s)= 1 mL, SubCutaneous, BID hydrALAZINE 20 mg/mL Inj, 10 mg= 0.5 mL, IV Push, q6hr, PRN lisinopril 5 mg Tab, 5 mg= 1 tab(s), Oral, Daily nitroglycerin 0.4 mg sublingual Tab, 0.4 mg= 1 tab(s), SubLingual, q5min, PRN Zofran 4 mg/2 mL Injection, 4 mg= 2 mL, IV Push, q6hr, PRN Home aspirin 81 mg Oral EC Tab, 81 mg= 1 tab(s), Oral, Daily lisinopril 5 mg Tab, 5 mg= 1 tab(s), Oral, Daily Allergies amoxicillin (Hives) penicillin (Hives) Social History Alcohol Substance Abuse Tobacco Family History Heart failure: Father and Brother. [facility] Comment on above: Result Comment: Elec tronically Signed By: Kip SINHA, Tristan Ashley\.br\Date and Time Signed: 04/20/21 16:31 EDT Discharge Instructionson Discharge Instructions [id number]#[id number]:127 [facility] Inpatient Clinical Summaryon 04-20-2021 Inpatient Clinical Summary [address] [address] Clinical Summary Person Information: Name: LOLA ANDINO Age: 80 Years : 1940 Sex: Female PCP: LG VOIEDO DO Marital Status: Unknown Race: White Ethnicity: Non- or Language: Panamanian Visit Id: Visit Reason: Shortness of breath; Chest pain; SOB, CHEST PAIN Speciality: Acuity: Enc Type: Observation Med Service: Medical Arrival: 04/19/2021 14:36:15 Discharge: 04/20/2021 12:33:00 Dispo Type: Home (Routine DC) Address: [address] [place] [phone] Provider Notes: Diagnosis: 1:Chest pain; 2:Hypertension; 3:DVT prophylaxis Problems No Problems Documented Smoking Status: Never Smoker Functional Status: Sensory Deficits: History of Falls: Mobility Assistance Prior to Admission: ADLs: Independent Current Level of Assistance for Self-Care/Mobility: Cognitive Status: Oriented x 3 Allergies penicillin (Hives) amoxicillin (Hives) Measurements: Height: 63 cm Weight: 64.6 kg Blood Pressure: 131 mmHg / 79 mmHg BMI: 163.77 kg/m2 Procedures Bilateral tubal ligation Immunizations No Immunizations Documented This Visit Final Med List: aspirin (aspirin 81 mg Oral EC Tab) 1 Tablets By Mouth every day. lisinopril (lisinopril 5 mg Tab) 1 Tablets By Mouth every day. Refills: 0. Care Team Members: Attending Physician: Pola GEE MD Consulting Physician: Referring Physician: Follow up: With: Address: When: Franklin Sousa [address] [place] [phone] Business (1) Within 1 to 2 weeks Comments: follow up for pulmonary nodule With: Address: When: Tristan Shin [address] [place] [phone] Business (1) Within 1 week Comments: Call for followup appointment With: Address: When: LG OVIEDO [facility] [place] [address] Business (1) 04/24/2021 3:00 PM Patient Education Information: Hypertension, Adult lisinopril [facility] Inpatient Patient Summaryon 04-20-2021 Inpatient Patient Summary [address] [address] Patient Discharge Instructions PERSON INFORMATION Name: LOLA ANDINO Date of : 1940 Current Date: 04/20/2021 13:08:27 PHYSICIANS Admitting Physician: Pola GEE MD Primary Care Physician: LG OVIEDO DO PCP Comment: Discharge Diagnosis: 1:Chest pain; 2:Hypertension; 3:DVT prophylaxis Condition at Discharge: Improved LOLA ANDINO has been given the following list of follow-up instructions, prescriptions, and patient education materials: PATIENT FOLLOW-UP INFORMATION Diet: Regular Discharge Activity: Ambulate as tolerated Discharge Restrictions: Wound Care Instructions: Remove Your Dressing In Days Call Your Doctor For: IF UNABLE TO CONTACT YOUR PHYSICIAN AND YOU FEEL IT IS AN EMERGENCY, GO TO THE NEAREST EMERGENCY ROOM OR CALL 911 Home Treatment: Devices/Equipment: Special Services: Additional Instructions: Primary Care Physician to provide the following pending test results: None Follow up: With: Address: When: Franklin Merry [address] [place] [address] [phone] [facility] (1) Within 1 to 2 weeks Comments: follow up for pulmonary nodule With: Address: When: Tristan Shin [address] [place] [phone] Business (1) Within 1 week Comments: Call for followup appointment With: Address: When: LG OVIEDO [facility] [place] [address] Business (1) 04/24/2021 3:00 PM In the event that this physician does not participate in your insurance network, please consult with your insurance company to find a nearby participating provider. Comment: SINA Green CAROLYN A, have received the attached patient education materials/instructi ons and have verbalized understanding: Patient Signature Date Clinican/Nurse Signature Date HERE ARE THE MEDICATION CHANGES THAT OCCURRED DURING YOUR HOSPITAL STAY New Medications Printed Prescriptions lisinopril (lisinopril 5 mg Tab) 1 Tablets By Mouth every day. Refills: 0. Last Dose: Next Dose: Medications to Continue with No Changes Other Medications aspirin (aspirin 81 mg Oral EC Tab) 1 Tablets By Mouth every day. Last Dose: Next Dose: Comment: MEDICATION LIST PROVIDED FOR YOU IS A LIST OF YOUR CURRENT MEDICATIONS. PLEASE CARRY THIS WITH YOU AT ALL TIMES. aspirin (aspirin 81 mg Oral EC Tab) 1 Tablets By Mouth every day. lisinopril (lisinopril 5 mg Tab) 1 Tablets By Mouth every day. Refills: 0. Pharmacy Information: [facility] Abiel Comment: PATIENT EDUCATION INFORMATION Instructions: Hypertension, Adult High blood pressure (hypertension) is when the force of blood pumping through the arteries is too strong. The arteries are the blood vessels that carry blood from the heart throughout the body. Hypertension forces the heart to work harder to pump blood and may cause arteries to become narrow or stiff. Untreated or uncontrolled hypertension can cause a heart attack, heart failure, a stroke, kidney disease, and other problems. A blood pressure reading consists of a higher number over a lower number. Ideally, your blood pressure should be below 120/80. The first ( top ) number is called the systolic pressure. It is a measure of the pressure in your arteries as your heart beats. The second ( bottom ) number is called the diastolic pressure. It is a measure of the pressure in your arteries as the heart relaxes. What are the causes? The exact cause of this condition is not known. There are some conditions that result in or are related to high blood pressure. What increases the risk? Some risk factors for high blood pressure are under your control. The following factors may make you more likely to develop this condition: ? Smoking. ? Having type 2 diabetes mellitus, high cholesterol, or both. ? Not getting enough exercise or physical activity. ? Being overweight. ? Having too much fat, sugar, calories, or salt (sodium) in your diet. ? Drinking too much alcohol. Some risk factors for high blood pressure may be difficult or impossible to change. Some of these factors include: ? Having chronic kidney disease. ? Having a family history of high blood pressure. ? Age. Risk increases with age. ? Race. You may be at higher risk if you are . ? Gender. Men are at higher risk than women before age 45. After age 65, women are at higher risk than men. ? Having obstructive sleep apnea. ? Stress. What are the signs or symptoms? High blood pressure may not cause symptoms. Very high blood pressure (hypertensive crisis) may cause: ? Headache. ? Anxiety. ? Shortness of breath. (more content not included)... [facility] Interdisciplinary Note - Eric e Manageron 04-20-2021 Interdisciplinary Note - Lactation Consultant Pt is awake and alert in bed, previously rounded with Dr. De La Garza and cardiology Daughter at bedside. . PCP verified and insurance information reviewed and DME discussed. Contact information provided and white board updated. Pt is independent from home with family support and daughter will transport at DC. Declines any concerns or DC needs. Observation status reviewed, and LITTLE form previously reviewed per nursing. Anticipate DC home today 04/20. [facility] Comment on above: Result Comment: Elec tronically Signed By: Miguel LEZAMA, Yuli\.adwoa\Date and Time Signed: 04/20/21 10:09 EDT Interdisciplinary Note - Soc ial Workeron 04-20-2021 Interdisciplinary Note - Senior Reactor Operator Computer generated consult for advanced directives received. This SW spoke with the patient who states that she already has HCPOA and LW completed. This SW requested a copy when she or family is able to bring in so that it can be scanned into her EMR. Patient is very appreciative for checking with her. SW will remain available. [facility] Message from Medicareon 03-24 Message from Medicare [id number]#[id number]:127 [facility] Monitor Recordon 04-20-2021 Monitor Record [id number]#[id number]:127 [facility] Monitor Record [id number]#1.00CD:127 [facility] Pre-Certification Formon Pre-Certification Form [id number]#1.00CD:127 [facility] Troponin 9 Hr.on 04-20-2021 Troponin I.cardiac [Mass/Vol] 17.60 pg/mL Normal 10.10-27.10 [facility] Comment on above: Result Comment: The 95% CI (Confidence Interval) PPV (Positive Predictive Value) for myocardial infarction in females is 38 pg/mL, in males 51 pg/mL. The results should be used in conjunction with clinical conditions of myocardial infarction. (Access High Sensitivity Troponin I Instructions For Use, [employer], March 2018) Performed By: #### 2 507438, [id number] #### [facility] [address] [place] [address] UA With Cult Reflexon 2020 Bacteria LM Ql (Urine sed) TRACE Normal Trace [facility] Comment on above: Performed By: #### 2 181170, [id number] #### [facility] [address] [place] [address] Bilirubin Ql (U) Negative Normal Negative [facility] Comment on above: Performed By: #### 2 317012, [id number] #### [facility] [address] [place] [address] Clarity (U) SL CLOUDY Invalid Interpretation Code [facility] Comment on above: Performed By: #### 2 064667, [id number] #### [facility] [address] [place] [address] Color (U) YELLOW Normal Yellow [facility] Comment on above: Performed By: #### 2 494924, [id number] #### [facility] [address] [place] [address] Epithelial cells.squamous LM.HPF (Urine sed) [#/Area] 0-2 Normal 0-2 [facility] Comment on above: Performed By: #### 2 130124, [id number] #### [facility] [address] [place] [address] Glucose Test strip (U) [Mass/Vol] Negative Normal Negative [facility] Comment on above: Performed By: #### 2 540042, [id number] #### [facility] [address] [place] [address] Hemoglobin Ql (U) TRACE Abnormal Negative [facility] Comment on above: Performed By: #### 2 925206, [id number] #### [facility] [address] [place] [address] Ketones (U) [Mass/Vol] Negative Normal Negative [facility] Comment on above: Performed By: #### 2 696118, [id number] #### [facility] [address] [place] [address] Hartly.plasma/Lithiu m.RBC (Bld) [Mass ratio] 0-3 Normal 0-3 [facility] Comment on above: Performed By: #### 2 834474, [id number] #### [facility] [address] [place] [address] Mucus Ql (Urine sed) 1+ Normal Fish [facility] Comment on above: Performed By: #### 2 385836, 37647774 #### [facility] [address] [place] [address] Nitrite Ql (U) Negative Normal Negative [facility] Comment on above: Performed By: #### 2 161608, [id number] #### [facility] [address] [place] [address] pH (U) 6.5 [pH] Invalid Interpretation Code 5.0-9.0 [facility] Comment on above: Performed By: #### 2 731480, [id number] #### [facility] [address] [place] [address] Protein (U) [Mass/Vol] Negative Normal Negative [facility] Comment on above: Performed By: #### 2 346486, [id number] #### [facility] [address] [place] [address] Specific gravity (U) [Rel density] 1.020 Invalid Interpretation Code 1.005-1.030 [facility] Comment on above: Performed By: #### 2 132982, 79753569 #### [facility] [address] [place] [address] Type of Urine collection method Clean Catch [facility] Comment on above: Performed By: #### 2 189665, [id number] #### [facility] [address] [place] [address] Urobilinogen Qn (U) 0.2 {Raji'U}/dL Normal 0.0-1.0 [facility] Comment on above: Performed By: #### 2 800436, 13812344 #### [facility] [address] [place] [address] WBC Auto Ql (U) Negative Normal Negative [facility] Comment on above: Performed By: #### 2 511832, [id number] #### [facility] [address] [place] [address] WBC LM.HPF (Urine sed) [#/Area] 0-5 Normal 0-5 [facility] Comment on above: Performed By: #### 2 367114, [id number] #### [facility] [address] [place] [address] XR Chest Single Viewon 04-20 XR Chest Single View Exam Date/Time: 04/19/2021 15:11 EDT Reason for Exam: Chest pain Report IMPRESSION: BIBASILAR ATELECTASIS. 6 MM PULMONARY NODULE IN THE LEFT LUNG BASE. RECOMMEND COMPARISON TO OLD CHEST X-RAY, IF AVAILABLE. CLINICAL HISTORY: Chest pain high blood pressure COMPARISON: NONE. FINDINGS: AP upright portable chest was obtained with patient's some rotation to the right and poor inspiration. The size heart is within normal limit and bronchovascular markings are unremarkable. There are bibasilar atelectasis. There is a 6 mm pulmonary nodule in the left lung base. FINAL REPORT Dictated: 04/20/2021 7:36 am Allan Childers M.D. Signed (Electronic Signature): 04/20/2021 7:36 am Signed by: Allan Childers M.D. Transcribed by: ARBEN Technologist: Noemy VILLAVICENCIO [facility] eGFRon 04-20-2021 GFR/1.73 sq M.predicted among blacks MDRD (S/P/Bld) [Vol rate/Area] mL/min/{1.73_m2} Normal >=59 [facility] Comment on above: Order Comment: Order added by Discern Expert. Result Comment: eGFR is race adjusted. AA=. Performed By: #### 2 986924, [id number] #### [facility] [address] [place] [address] GFR/1.73 sq M.predicted among non-blacks MDRD (S/P/Bld) [Vol rate/Area] mL/min/{1.73_m2} Normal >=59 [facility] Comment on above: Order Comment: Order added by Discern Expert. Result Comment: Undercoater brady kidney disease could be indicated at eGFR's of less than 60 mL/min/1.73m2. Kidney failure is indicated at less than 15 mL/min/1.73m2. Performed By: #### 2 151033, [id number] #### [facility] [address] [place] [address] Auto Diffon 04-19-2021 Basophils/100 WBC (Bld) 0.8 % Normal 0.0-2.0 [facility] Comment on above: Order Comment: Order Added by Discern Expert. Performed By: #### 2 250460, 0274984, 8892332, 52046579, 17849686, 95812393, 21673828 ####[facility] [address] [place] [address] Basophils/Leukocytes Auto (Bld) [Pure # fraction] 0.0 E9/L Normal 0.0-0.2 [facility] Comment on above: Order Comment: Order Added by Discern Expert. Performed By: #### 2 694993, 0464586, 3402302, 95257334, 86678246, 23665339, 30636075 ####[address] [address] Eosinophils/100 WBC (Bld) 1.2 % Normal 0.0-8.0 [facility] Comment on above: Order Comment: Order Added by Discern Expert. Performed By: #### 2 378692, 0314554, 0225788, 48088141, 07314543, 10062398, 91389830 ####[address] [address] Eosinophils/Leukocyte s Auto (Bld) [Pure # fraction] 0.1 E9/L Normal 0.0-0.5 [facility] Comment on above: Order Comment: Order Added by Discern Expert. Performed By: #### 2 085559, 4449425, 8006358, 75171461, 70151040, 70393397, 36896151 ####[address] [place] [address] Lymphocytes/100 WBC (Bld) 23.5 % Normal 14.0-50.0 [facility] Comment on above: Order Comment: Order Added by Discern Expert. Performed By: #### 2 687310, 6488405, 2243501, 78969220, 37149743, 88004120, 12185312 ####[address] [place] [address] Lymphocytes/Leukocyte s Auto (Bld) [Pure # fraction] 1.0 E9/L Normal 1.0-4.0 [facility] Comment on above: Order Comment: Order Added by Discern Expert. Performed By: #### 2 204241, 2577780, 3966899, 11153242, 16502360, 10220756, 87589556 ####[address] [address] Monocytes/100 WBC (Bld) 8.8 % Normal 4.0-14.0 [facility] Comment on above: Order Comment: Order Added by Discern Expert. Performed By: #### 2 679119, 8902382, 5758986, 29791131, 59780123, 31095540, 07119990 ####[address] [address] Monocytes/Leukocytes Auto (Bld) [Pure # fraction] 0.4 E9/L Normal 0.2-1.0 [facility] Comment on above: Order Comment: Order Added by Discern Expert. Performed By: #### 2 420215, 4856453, 2783770, 94765928, 88860049, 47590735, 04500050 ####[address] [address] Neutrophils/100 WBC (Bld) 65.7 % Normal 36.0-75.0 [facility] Comment on above: Order Comment: Order Added by Discern Expert. Performed By: #### 2 444130, 7618103, 9851424, 10435763, 24100043, 85150446, 26725117 ####[address] [address] Neutrophils/Leukocyte s Auto (Bld) [Pure # fraction] 2.9 E9/L Normal 2.0-7.5 [facility] Comment on above: Order Comment: Order Added by Discern Expert. Performed By: #### 2 813818, 4513352, 3874424, 31086405, 05558810, 59840511, 38502333 ####[address] [place] [address] BMPon 04-19-2021 Creatinine [Mass/Vol] 0.9 mg/dL Normal 0.5-1.3 [facility] Comment on above: Performed By: #### 2 342701, 9591456, 4404658, 64064404, 88314254, 87272548, 02737444 ####[facility] [address] [place] [address] Urea nitrogen [Mass/Vol] 18 mg/dL Normal 5-21 [facility] Comment on above: Performed By: #### 2 289476, 7175498, 8003166, 78268185, 22447458, 35049830, 90136652 ####[facility] [address] [place] [address] Urea nitrogen/Creatinine [Mass ratio] 20 No Units Normal 10-20 [facility] Comment on above: Performed By: #### 2 792769, 5134031, 9436371, 53192853, 63959170, 77783625, 62554237 ####[facility] [address] [place] [address] Anion gap [Moles/Vol] 12 mmol/L Normal 6-16 [facility] Comment on above: Performed By: #### 2 703393, 9881543, 5812970, 51280080, 29468870, 51033322, 65035144 ####[facility] [address] [place] [address] Calcium [Mass/Vol] 9.2 mg/dL Normal 8.9-11.1 [facility] Comment on above: Performed By: #### 2 716918, 1404055, 6202849, 36713950, 30648803, 98481263, 72418765 ####[facility] [address] [place] [address] Chloride [Moles/Vol] 102 mmol/L Normal 101-[address] [facility] Comment on above: Performed By: #### 2 794840, 6073157, 7793183, 10764053, 87752768, 76961643, 73445200 ####[facility] [address] [place] [address] CO2 [Moles/Vol] 27 mmol/L Normal 21-31 [facility] Comment on above: Performed By: #### 2 505393, 4550493, 4146565, 88051513, 48628877, 52958900, 75823026 ####[facility] [address] [place] [address] Glucose [Mass/Vol] 115 mg/dL Normal 55-199 [facility] Comment on above: Result Comment: If t his glucose result represents a fasting glucose, interpretation should refer to the following reference range: 55-99 mg/dL Performed By: #### 2 998381, 0566904, 4460581, 40520824, 15836310, 22083553, 96686718 ####[address] [address] Potassium [Moles/Vol] 3.4 mmol/L Low 3.5-5.3 [facility] Comment on above: Performed By: #### 2 691552, 8460917, 6544584, 61358205, 30431388, 87713409, 67946982 ####[address] [place] [address] Sodium [Moles/Vol] 138 mmol/L Normal 135-145 [facility] Comment on above: Performed By: #### 2 330120, 5456243, 7367569, 66112929, 32757658, 33581681, 78222632 ####[address] [place] [address] BNPon 04-19-2021 Natriuretic peptide B (Bld) [Mass/Vol] 76 pg/mL Normal 5-80 [facility] Comment on above: Performed By: #### 2 579724, 7925689, 2901829, 34085986, 25253369, 45635379, 13657252 ####[address] [place] [address] CBC w/ Auto Diffon Erythrocyte distribution width (RBC) [Ratio] 13.1 % Normal 10.9-14.2 [facility] Comment on above: Performed By: #### 2 940197, 8767725, 7709733, 88326684, 14613874, 58969437, 11919244 ####[address] [address] Hematocrit (Bld) [Volume fraction] 36.6 % Normal 34.0-46.0 [facility] Comment on above: Performed By: #### 2 429815, 5034943, 5129548, 25368944, 87812009, 74157502, 93969765 ####[address] [address] Hemoglobin (Bld) [Mass/Vol] 12.5 g/dL Normal 12.0-16.0 [facility] Comment on above: Performed By: #### 2 909495, 7356776, 7935964, 12480995, 19107097, 71834229, 93299195 ####[address] [address] MCH (RBC) [Entitic mass] 33.0 pg Normal 27.0-34.0 [facility] Comment on above: Performed By: #### 2 063298, 4124981, 0018034, 87630440, 23069606, 04915811, 66792012 ####[address] [address] MCHC (RBC) [Mass/Vol] 34.0 g/dL Normal 31.4-36.0 [facility] Comment on above: Performed By: #### 2 171088, 4788148, 8122969, 91996361, 89025348, 02765064, 59198609 ####[address] [address] MCV (RBC) [Entitic vol] 97.2 fL Normal 80.0-100.0 [facility] Comment on above: Performed By: #### 2 135861, 8222917, 4981722, 99528894, 05633262, 55526612, 80363884 ####[facility] [address] [place] [address] Platelet mean volume (Bld) [Entitic vol] 9.5 fL Normal 6.4-10.8 [facility] Comment on above: Performed By: #### 2 436723, 2902044, 7014526, 87773932, 64894499, 10097578, 12380650 ####[address] [place] [address] Platelets (Bld) [#/Vol] 277.0 E9/L Normal 150.0-500.0 [facility] Comment on above: Performed By: #### 2 498256, 1277109, 3409701, 78670265, 94767493, 15644017, 38842588 ####[address] [address] RBC (Bld) [#/Vol] 3.8 E12/L Low 4.3-5.9 [facility] Comment on above: Performed By: #### 2 746462, 6022725, 7635211, 09538047, 74466650, 19751396, 14174643 ####[address] [address] WBC corrected for nucl RBC Auto (Bld) [#/Vol] 4.4 E9/L Normal 4.0-11.0 [facility] Comment on above: Performed By: #### 2 040201, 1916479, [id number], [id number], [id number], [id number] ####[id number] [place] [address] Consent for Treatmenton 03-23 Consent for Treatment [id number] [facility] ED Clinical Summaryon 2020 ED Clinical Summary [address] [address] ED Clinical Summary Person Information Name: LOLA ANDINO [place] Age: 80 Years : 1940 Sex: Female Language: Panamanian PCP: LG OVIEDO DO Marital Status: Unknown Visit Id: Visit Reason: Shortness of breath; Chest pain; CHEST PAIN Speciality: Acuity: 2 Enc Type: Emergency Med Service: Emergency Arrival: 04/19/2021 14:36:15 Discharge: LOS: 000 04:12 Checkin: 04/19/2021 14:36:15 Checkout: 04/19/2021 18:48:10 Dispo Type: Admitted as IP to this [facility] EVENTS: Event Name Event Status Request Date/Time Start Date/Time Complete Date/Time Arrive Complete 04/19/2021 14:36:15 04/19/2021 14:36:15 04/19/2021 14:36:15 Document Home Meds Request 04/19/2021 14:36:15 Triage Complete 04/19/2021 14:36:15 04/19/2021 14:43:05 04/19/2021 14:43:05 Bed Assign Complete 04/19/2021 14:38:53 04/19/2021 14:38:53 04/19/2021 14:38:53 Dr Exam Complete 04/19/2021 14:38:53 04/19/2021 14:54:51 04/19/2021 14:54:51 RN Exam Complete 04/19/2021 14:38:53 04/19/2021 14:53:28 04/19/2021 14:53:28 EKG Complete 04/19/2021 14:39:18 04/19/2021 14:43:40 Registration Complete 04/19/2021 14:46:44 04/19/2021 14:46:44 04/19/2021 14:46:44 Reg Complete Request 04/19/2021 14:46:44 Reg Bed Request Complete 04/19/2021 14:46:44 04/19/2021 14:46:44 04/19/2021 14:46:44 Registration Complete 04/19/2021 14:54:51 04/19/2021 16:50:44 04/19/2021 16:50:44 Pending Labs Request 04/19/2021 14:55:34 Lab Complete 04/19/2021 14:55:34 04/19/2021 15:33:33 Patient Care Request 04/19/2021 14:55:34 RT Request 04/19/2021 14:55:34 X-Ray Complete 04/19/2021 14:55:34 04/19/2021 15:04:28 04/19/2021 15:11:57 Dr Exam Complete 04/19/2021 14:56:22 04/19/2021 14:56:22 04/19/2021 14:56:22 Meds Admin Complete 04/19/2021 15:09:16 04/19/2021 15:45:18 Wet Read Request 04/19/2021 15:11:57 Pending Labs Complete 04/19/2021 15:12:09 04/19/2021 15:12:09 04/19/2021 15:26:48 Lab Complete 04/19/2021 15:12:09 04/19/2021 15:12:09 04/19/2021 15:26:48 Pending Labs Complete 04/19/2021 15:20:30 04/19/2021 15:20:30 04/19/2021 15:20:37 Lab Complete 04/19/2021 15:20:30 04/19/2021 15:20:30 04/19/2021 15:20:37 Consult Request 04/19/2021 17:36:01 Hospitalist Consult Request 04/19/2021 17:36:01 Inpatient Bed Ready Complete 04/19/2021 18:48:10 04/19/2021 18:48:10 04/19/2021 18:48:10 ADDRESS: [address] [place] [address] [id number] [facility] DOC NOTES: MEDICAL INFORMATION: Prescriptions Given: PATIENT EDUCATION INFORMATION: Instructions: Follow up: DIAGNOSIS: 1:Chest pain; 2:Hypertension [facility] ED Note-Physicianon 04-19-20 21 ED Note-Physician Basic Information Time Seen: Dangelo LEONBailee 04/19/2021 14:54 Chief Complaint pt reports left side chest pain. Sharp pain. Pain has subsided. mild SOB. denies cough/fever. History of Present Illness 80-year-old female presents to the ED complaining of high blood pressure and chest pain. Patient states she had sharp, stabbing left-sided chest pain that woke her up from sleep. Nothing seems to make the pain any better or worse. Pain went away on its own. Pain was associated with some mild shortness of breath. Patient also states that her blood pressure has been extremely high today. Patient denies taking any blood pressure medication, states that her primary care provider is monitoring her blood pressure and it has been somewhat high in the past but never this high. She denies any associated weakness, dizziness, diaphoresis, abdominal pain. No nausea or vomiting. Review of Systems All organ systems are reviewed. Pertinent positive and negative findings as mentioned in the HPI. Physical Exam Vitals & Measurements T: 36.9 ?C (Oral) HR: 78(Monitored) RR: 14 BP: 195/96 SpO2: 96% HT: 160.02 cm HT: 160.0 cm WT: 69.3 kg WT: 69.3 kg BMI: 27.06 GENERAL APPEARANCE: Very pleasant, elderly female. Alert and conversational. HEAD: normocephalic, atraumatic EYES: PERRL, EOMI. Vision is grossly intact. EARS: External auditory canals clear, hearing grossly intact. NOSE: No nasal discharge. THROAT: Oral cavity and pharynx normal. Oral mucosa moist. CARDIAC: Normal heart sounds, no murmurs. Rhythm is regular. There is no peripheral edema, cyanosis or pallor. Extremities are warm and well perfused. Capillary refill is less than 2 seconds LUNGS: Clear to auscultation without rales, rhonchi, wheezing or diminished breath sounds. ABDOMEN: Positive bowel sounds. Soft, nondistended, nontender. No guarding or rebound. MUSCULOSKELETAL: Adequately aligned spine. ROM intact spine and extremities. No joint erythema or tenderness. NEUROLOGICAL: CN grossly intact. Strength and sensation symmetric and intact throughout. SKIN: Skin normal color, texture and turgor with no lesions or eruptions. Assessment/Plan 1. Chest pain (R07.9: Chest pain, unspecified) 2. Hypertension (I10: Essential (primary) hypertension) Orders: labetalol, 10 mg = 2 mL, Soln-IV, IV Push, Once, Stop date 04/19/21 15:09:00 EDT, STAT, Start date 04/19/21 15:09:00 EDT, 04/19/21 15:09:00 EDT Automated Diff B-Type Natriuretic Peptide Basic Metabolic Panel CBC w/ Auto Diff ED Cardiac Monitoring ED Physician consult Hospitalist for continued care eGFR Oxygen Saturation Oxygen Therapy PT & PTT Saline Lock Insert Troponin 0 Hr. Troponin 3 Hr. Troponin 6 Hr. Troponin 9 Hr. XR Chest Single View 80-year-old female presents to the ED complaining of chest pain and high blood pressure. In the ED patient is afebrile, hypertensive with systolic blood pressure greater than 200. EKG shows no acute ST elevation or depression. Patient treated with IV labetalol with improvement of her blood pressure. Labs are reviewed and noted, troponin negative. Patient did have another episode of chest pain while in the ED. Due to patient's chest pain and hypertension she would benefit from admission for further observation and evaluation. Patient and hospitalist are agreeable to admission. Medications Administered Given labetalol 5 mg/mL IV Emilee 20 mL, 10 mg, IV Push Disposition Plan Patient Discharge Condition Improved, stable Discharge Disposition Admit to hospitalist Discharge Prescription List Prescriptions No active prescription medications Follow-up No qualifying data available Attestation Patient was treated and evaluated by the Physician Multi Craft Maintenance Technician. The attending physician was in the Emergency Department at all times and supervised care. The case was discussed with the attending physician and diagnostics were reviewed as needed. Problem List/Past Medical History Ongoing No qualifying data Historical No qualifying data Medications Inpatient No active inpatient medications Home No active home medications Allergies penicillin (Hives) Social History Alcohol Substance Abuse Tobacco Lab Results WBC: 4.4 E9/L (04/19/21 14:59:00) RBC: 3.8 E12/L Low (04/19/21 14:59:00) Hgb: 12.5 gm/dL (04/19/21 14:59:00) Hct: 36.6 % (04/19/21 14:59:00) MCV: 97.2 fL (04/19/21 14:59:00) MCH: 33 pg (04/19/21 14:59:00) MCHC: 34 gm/dL (04/19/21 14:59:00) RDW: 13.1 % (04/19/21 14:59:00) Platelet: 277 E9/L (04/19/21 14:59:00) MPV: 9.5 fL (04/19/21 14:59:00) Neutro Auto: 65.7 % (04/19/21 14:59:00) Lymph Auto: 23.5 % (04/19/21 14:59:00) [place] Auto: 8.8 % (04/19/21 14:59:00) Eos Auto: 1.2 % (04/19/21 14:59:00) Basophil Auto: 0.8 % (04/19/21 14:59:00) Neutro Absolute: 2.9 E9/L (04/19/21 14:59:00) Lymph Absolute: 1 E9/L (04/19/21 14:59:00) [place] Absolute: 0.4 E9/L (04/19/21 14:59:00) Eos Absolute: 0.1 E9/L (04/19/21 14:59:00) Basophil Abs (more content not included)... [facility] Comment on above: Result Comment: Elec tronically Signed By: Bailee Pierson PA-C\.br\Date and Time Signed: 04/19/21 18:49 EDT\.br\Electronically Co-Signed By: Flynn Mittal DO\.br\Date and Time Co-Signed: 04/19/21 20:39 EDT ED Patient Education Noteon 04-19-2021 ED Patient Education Note [facility] ED Patient Summaryon ED Patient Summary [address] [address] Patient Discharge Instructions Person Information Name: LOLA ANDINO Age: 80 Years Arrival Date: 04/19/2021 14:36:15 Discharge Diagnosis: 1:Chest pain; 2:Hypertension Primary Care Physician: LG OVIEDO DO Provider Information Primary Provider: Flynn Mittal DO Advanced Director Communications:Bailee Pierson PA-C The exam and treatment you received in the Emergency Department were for an urgent problem and are not intended as complete care. It is important that you follow up with a doctor, nurse practitioner, or physician?s drilling assistant for ongoing care. If your symptoms become worse or you do not improve as expected and you are unable to reach your usual health care provider, you should return to the Emergency Department. We are available 24 hours a day. LOLA ANDINO has been given the following list of patient education materials, prescriptions and follow-up instructions: Follow-up Instructions: In the event that this physician does not participate in your insurance network, please consult with your insurance company to find a nearby participating provider. Patient Education Materials: A MESSAGE TO ALL PATIENTS REGARDING OPIOIDS PRESCRIPTION OPIOIDS: WHAT YOU NEED TO KNOW Prescription opioids can be used to help relieve izqkiyhn-jz-jkwglm pain and are often prescribed following a surgery or injury, or for certain health conditions. These medications can be an important part of the treatment but also come with serious risks. It is important to work with your healthcare provider to make sure you are getting the safest, most effective care. WHAT ARE THE RISKS AND SIDE EFFECTS OF OPIOID USE? Prescription opioids carry serious risks of addiction and overdose, especially with prolonged use. An opioid overdose, often marked by slowed breathing, can cause sudden . The use of prescription opioids can have a number of side effects as well, even when taken as directed: ? Tolerance?meaning you might need to take more of the medication for the same pain relief ? Physical dependence?meaning you have symptoms of withdrawal when a medication is stopped ? Increased sensitivity to pain ? Constipation ? Nausea, vomiting, and dry mouth ? Sleepiness and dizziness ? Confusion ? Depression ? Low levels of testosterone that can result in lower sex drive, energy, and strength ? Itching and sweating RISKS ARE GREATER WITH: ? History of drug misuse, substance use disorder, or overdose ? Mental health conditions (such as depression or anxiety) ? Sleep apnea ? Older age (65 years and older) ? Avoid alcohol while taking prescription opioids. Also, unless specifically advised by your health care provider, medications to avoid include: ? Benzodiazepines (such as Xanax or Valium) ? Muscle relaxants (such as Soma or Flexeril) ? Hypnotics (such as Ambien or Lunesta) ? Other prescription opioids KNOW YOUR OPTIONS Talk to your health care provider about ways to manage your pain that don?t involve prescription opioids. Some of these options may actually work better and have fewer risks and side effects. Options may include: ? Pain relievers such as acetaminophen, ibuprofen, and naproxen ? Some medication that are also used for depression or seizures ? Physical therapy and exercise ? Cognitive behavioral therapy, a psychological, goal-directed approach, in which patients learn how to modify physical, behavioral, and emotional triggers of pain and stress. IF YOU ARE PRESCRIBED OPIOIDS FOR PAIN: ? Never take opioids in greater amounts or more often than prescribed. ? Follow up with your primary health care provider. o Work together to create a plan on how to manage your pain. o Talk about ways to help manage your pain that don?t involve prescription opioids. o Talk about any and all concerns and side effects. ? Help prevent misuse and abuse o Never sell or share prescription opioids. o Never use another person?s prescription opioids. ? Store prescription opioids in a secure place and out of reach of others (this may include visitors, children, friends, and family). ? Safely dispose of unused prescription opioids: Find your community drug take-back program or your pharmacy mail-back program, or flush them down the toilet, following guidance from the Food and Drug Administration (www.fda.gov/Drugs/ ResourcesForYou). ? Visit www.cdc.gov/drugove rdose to learn about the risks of opioids abuse and overdose. ? If you believe you may be struggling with addiction, tell your health long term acute care registered nurse and ask for guidance or call [facility] National Helpline at 4-006-523-EOCC. v Source: US Department of Health and Human Services/Center for Disease Control & Prevention [facility] Medications Given: Medication (more content not included)... [facility] PT & PTTon 04-19-2021 aPTT Coag (PPP) [Time] 34.2 second(s) Normal 25.1-36.5 [facility] Comment on above: Result Comment: Hepa rin therapeutic range (represented by Anti-Factor Xa activity of 0.2 - 0.4 U/mL) corresponds to PTT of 56.6 - 109.0 sec. Performed By: #### 2 [id number], [id number] #### [facility] [address] [place] [address] INR Coag (PPP) [Relative time] 1.0 {INR} Invalid Interpretation Code [facility] Comment on above: Result Comment: INR results are specifically intended to assess patients stabilized on long-term Anticoagulation therapy suggested INR?s ?Less Intensive Anticoagulation? 2.0 ? 3.0 Conventional Range 3.0 ? 4.5 Performed By: #### 2 [id number], [id number] #### [facility] [address] [place] [address] PT Coag (PPP) [Time] 11.7 second(s) Normal 10.2-12.9 [facility] Comment on above: Performed By: #### 2 [id number], [id number] #### [facility] [address] [place] [id number] Troponin 0 Hr.on 04-19-2021 Troponin I.cardiac [Mass/Vol] 4.00 pg/mL Low 10.10-27.10 [facility] Comment on above: Result Comment: The 95% CI (Confidence Interval) PPV (Positive Predictive Value) for myocardial infarction in females is 38 pg/mL, in males 51 pg/mL. The results should be used in conjunction with clinical conditions of myocardial infarction. (Access High Sensitivity Troponin I Instructions For Use, [facility], March 2018) Performed By: #### 2 [id number], [id number] #### [facility] [address] [place] [address] Troponin 3 Hr.on 04-19-2021 Troponin I.cardiac [Mass/Vol] 24.40 pg/mL Normal 10.10-27.10 [facility] Comment on above: Result Comment: The 95% CI (Confidence Interval) PPV (Positive Predictive Value) for myocardial infarction in females is 38 pg/mL, in males 51 pg/mL. The results should be used in conjunction with clinical conditions of myocardial infarction. (Access High Sensitivity Troponin I Instructions For Use, [facility], March 2018) Performed By: #### 2 [id number], [id number] #### [facility] [address] [place] [address] Troponin 6 Hr.on 04-19-2021 Troponin I.cardiac [Mass/Vol] 21.50 pg/mL Normal 10.10-27.10 [facility] Comment on above: Result Comment: The 95% CI (Confidence Interval) PPV (Positive Predictive Value) for myocardial infarction in females is 38 pg/mL, in males 51 pg/mL. The results should be used in conjunction with clinical conditions of myocardial infarction. (Access High Sensitivity Troponin I Instructions For Use, Vira [place], March 2018) Performed By: #### 2 [id number], [id number] #### [facility] [address] [place] [address] eGFRon 04-19-2021 GFR/1.73 sq M.predicted among blacks MDRD (S/P/Bld) [Vol rate/Area] mL/min/{1.73_m2} Normal >=59 [facility] Comment on above: Order Comment: Order added by Discern Expert. Result Comment: eGFR is race adjusted. AA=. Performed By: #### 2 [id number], [id number], [id number], [id number], [id number] ####[facility] [address] [place] [address] GFR/1.73 sq M.predicted among non-blacks MDRD (S/P/Bld) [Vol rate/Area] 60 mL/min/1.73 m2 Normal >=59 [facility] Comment on above: Order Comment: Order added by Discern Expert. Result Comment: Undercoater brady kidney disease could be indicated at eGFR's of less than 60 mL/min/1.73m2. Kidney failure is indicated at less than 15 mL/min/1.73m2. Performed By: #### 2 [id number], [id number], [id number], [id number], [id number] ####[facility] [address] [place] [address] Vital Signs Date Time Vital Sign Value Performing Clinician Facility 05-10-2023 09:00-0400 Body height 160.02 cm Lg Ovied[facility] Other [facility] 05-10-2023 09:00-0400 Body mass index (BMI) [Ratio] 26.6 kg/m2 [facility] Other [facility] 05-10-2023 09:00-0400 Body weight 68.13 kg [facility] Other [facility] 05-10-2023 09:00-0400 Diastolic blood pressure 78 mm[Hg] [facility] Other [facility] 05-10-2023 09:00-0400 Respiratory rate 12 /min [facility] Other [facility] 05-10-2023 09:00-0400 Systolic blood pressure 185 mm[Hg] [facility] Other [facility] 03-25-2023 13:30-0400 Body height 160.02 cm [facility] Other [facility] 03-25-2023 13:30-0400 Body mass index (BMI) [Ratio] 25.58 kg/m2 [facility] Other [facility] 03-25-2023 13:30-0400 Body weight 65.5 kg [facility] Other [facility] 03-25-2023 13:30-0400 Diastolic blood pressure 78 mm[Hg] [facility] Other [facility] 03-25-2023 13:30-0400 Respiratory rate 12 /min [facility] Other [facility] Other 03-25-2023 13:30-0400 Systolic blood pressure 187 mm[Hg] [facility] Other [facility] Other Encounters Encounter Date Encounter Type Care Provider Facility Start: 10-14-2023 End: 10-14-2023 ambulatory [facility] Work Phone: Start: 10-14-2023 End: 10-14-2023 Patient encounter procedure [facility] Work Phone: Start: 08-23-2023 End: 08-23-2023 ambulatory LORI H TIMMIS Not Available Start: 07-20-2023 End: 07-20-2023 ambulatory LORI H TIMMIS Not Available Start: 06-17-2023 End: 06-17-2023 ambulatory Lg [facility] Other [facility] Other Start: 06-17-2023 Nursing evaluation o f patient and report Lg Oviedo [facility] Start: 05-19-2023 End: 05-19-2023 ambulatory Lg [facility] Other [facility] Start: 05-19-2023 Telephone encounter Lg Oviedo [facility] Start: 05-17-2023 End: 05-17-2023 ambulatory Lg [facility] Other [facility] Start: 05-17-2023 Telephone encounter Lg [facility] Start: 05-12-2023 End: 05-12-2023 ambulatory Lg [facility] Other [facility] Other Start: 05-12-2023 Telephone encounter Lg [facility] Start: 05-10-2023 End: 05-10-2023 ambulatory Lg [facility] Other [facility] Other Start: 05-10-2023 Patient encounter procedure Lg Oviedo [facility] Start: 04-18-2023 End: 04-18-2023 ambulatory Lg [facility] Other [facility] Start: 04-18-2023 Telephone encounter [facility]g [facility] Start: 04-07-2023 End: 04-07-2023 ambulatory Lg [facility] Other [facility] Start: 04-07-2023 Telephone encounter [facility] Start: 04-05-2023 End: 04-05-2023 ambulatory Lg [facility] Other [facility] Start: 04-05-2023 Telephone encounter [facility]g [facility] Start: 04-01-2023 End: 04-01-2023 ambulatory Lg [facility] Other [facility] Start: 04-01-2023 Telephone encounter Lg [facility] Start: 03-25-2023 End: 03-25-2023 ambulatory Lg [facility] Other [facility] Other Start: 03-25-2023 Office outpatient vi sit 15 minutes Lg Oviedo [facility] Start: 08-10-2022 End: 08-11-[address] LG OVIEDO Facility:[facility] Start: 05-06-2022 End: 05-07-[address] LG OVIEDO Facility:[facility] Start: 04-06-2022 End: 04-07-[address] LG OVIEDO Facility:[facility] Start: 01-06-2022 End: 01-07-[address] LG OVIEDO Facility:[facility] Immunizations Immunization Date Immunization Notes Care Provider Fa [facility] 04-17-2020 pneumococcal polysaccharide vaccine, 23 valent Lg Oviedo Other [facility] 11-28-2017 diphtheria, tetanus toxoids and acellular pertussis vaccine, unspecified formulation Lg [facility] Other [facility] 10-25-2016 tetanus and diphther ia toxoids, adsorbed, preservative free, for adult use (5 Lf of tetanus toxoid and 2 Lf of diphtheria toxoid) [facility] 10-25-2016 tetanus toxoid, redu tammy diphtheria toxoid, and acellular pertussis vaccine, adsorbed Lg [facility] Other [facility] Other Payers Date Payer Category Payer Medicare [id number] 2. [id number] 1960 Medicare [id number] 1940 Unknown [id number] 2.16.84 [id number] 1940 Unknown [id number] 2.16.84 [id number] 1940 Unknown [id number] 2.16.84 [id number] 1940 Unknown [id number] 2.16.84 [id number] 1940 Unknown [id number] [id number] 1940 Unknown [id number] [id number] Medicare Medicare Outpatient [id number] Unknown [id number] 2.1 [id number] Unknown [facility] Health Claims [id number] Social History Date Type Detail Facility Sex Assigned At [facility] Other Start: 1940 Sex Assigned At Female F [facility] Clinical Notes 11-28-2017 to 06-17-2023 Note Date & Type Note Facility 06-17-2023 Evaluation note Encounter Date Diagnosis Assessment Notes May, Dysuria (ICD-10 - R30.0) [facility] Other 09-26-2023 Evaluation note* Encounter Date Diagnosis Assessment Notes Treatment Notes Treatment Clinical Notes Apr, Pulmonary nodule (ICD-10 - R91.1) CXR 6mm - 04/2021, CT small nodules - 04/2022 CT small nodules, stable - 04/2023 [facility] Other 09-19-2023 Evaluation note* Encounter Date Diagnosis Assessment Notes Treatment Notes Treatment Clinical Notes Apr, Pulmonary nodule (ICD-10 - R91.1) CXR 6mm - 04/2021, CT small nodules - 04/2022 Continue surveillance for [address] lungs Apr, Medicare annual wellness visit, subsequent (ICD-10 - Z00.00) Personalized health advice was given to the beneficiary including a written plan for screenings discussed and provided. Advanced care planning reviewed and/or information given as requested. Additional counseling was provided here today in regards to, [ ]. The above visit was performed by [ ], under direct supervision of [ ]. Document reviewed and amended by provider signed below. Apr, Primary hypertension (ICD-10 - I10) This patient is instructed to consume a healthy, low-fat, low-salt diet. They are also encouraged to continue exercise to achieve/maintain a normal BMI. Patient is instructed on home BP measurements: - rest for 5 minutes w/o talking- positioned w/ feet on floor and arm supported- average best 2/3 readings w/ goal < 135/85 Add Amlodipine and recheck in couple weeks by MAGEN Apr, Elevated cholesterol (ICD-10 - E78.00) Instructed on diet and exercise with continued statin therapy.Discussed the beneficial effects of lowering cholesterol in reducing the risk for cerebrovascular and cardiovascular disease. Apr, Abnormal TSH (ICD-10 - R79.89) Recheck TSH w/ FT4 and TT3 Apr, Stable branch retinal vein occlusion of left eye (ICD-10 - H34.8322) Check LDL chol, FBS and CBC Maintain strict control of BP w/ goal < 140/90. f/u Retinal sp Apr, Screening mammography declined (ICD-10 - Z53.20) Instructed patient on monthly SBE. Apr, High risk medication use (ICD-10 - Z79.899) Check labs [facility] Other 08-15-2023 Evaluation note* Encounter Date Diagnosis Assessment Notes Treatment Notes Treatment Clinical Notes Mar, Dizziness (ICD-10 - R42) [place] Other 08-11-2023 Evaluation note* Encounter Date Diagnosis Assessment Notes Treatment Notes Treatment Clinical Notes Mar, Claustrophobia (ICD-10 - F40.240) [place] [facility] Other 08-04-2023 Evaluation note* Encounter Date Diagnosis Assessment Notes Treatment Notes Treatment Clinical Notes Mar, Primary hypertension (ICD-10 - I10) This patient is instructed to consume a healthy, low-fat, low-salt diet. They are also encouraged to continue exercise to achieve/maintain a normal BMI. Mar, Dizziness (ICD-10 - R42) Symptoms most consistent w/ vestibular cause. r/o acoustic neuroma, brain tumor ENT referral after MRI Mar, Sensorineural hearing loss, unilateral, right ear, 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 (ICD-10 - H90.A21) Discussed B/L vs unilateral hearing loss. She admits to B/L hearilng loss w/ right > left. 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 Jacques (December) tried calling twice and patient hung up on my both times after i said chloé. [facility]09-29-2021 Note From: Genesis Denny To: - Administrative; Sent: 05/20/2021 08:14:37 EDT Show up: 08/19/2021 07:14:00 EST Subject: 4 month follow up Due Date/Time: 09/19/2021 07:14:00 EST Reminder/Recall 4 month follow up with Haley (2021)[facility]08-30-2021 NoteAdmission Information Admitting Physician - Pola GEE MD Consulting Physician - Kip SINHA, Tristan Ashley Admitting Diagnoses: 1. Chest pain, unspecified, 04/20/2021 2. Essential (primary) hypertension, 04/20/2021 3. Encounter for prophylactic measures, unspecified, 04/20/2021 Hospital Course Pt is a 80 F admitted with complaints of chest pain. pt was ruled out for ACS with negative cardiacenzymes, no EKG changes. Pt was seen by [facility] cardiology, recommended outpatient stress test and started on lisinopril 5 mg po q day for uncontrolled HTN. pt with some complaints of dysuria, negative UA, if persists to follow up with urology outpatient. Pt discharged home in improved condition to follow up with PCP and [facility] cardiology outpatient. d/w patient and daughter at bedside Significant Findings WBC: 4.4 E9/L (04/19/21 14:59:00) RBC: 3.8 E12/L Low (04/19/21 14:59:00) Hgb: 12.5 gm/dL (04/19/21 14:59:00) Hct: 36.6 % (04/19/21 14:59:00) MCV: 97.2 fL (04/19/21 14:59:00) MCH: 33 pg (04/19/21 14:59:00) MCHC: 34 gm/dL (04/19/21 14:59:00) RDW: 13.1 % (04/19/21 14:59:00) Platelet: 277 E9/L (04/19/21 14:59:00) MPV: 9.5 fL (04/19/21 14:59:00) Neutro Auto: 65.7 % (04/19/21 14:59:00) Lymph Auto: 23.5 % (04/19/21 14:59:00) [place] Auto: 8.8 % (04/19/21 14:59:00) Eos Auto: 1.2 % (04/19/21 14:59:00) Basophil Auto: 0.8 % (04/19/21 14:59:00) Neutro Absolute: 2.9 E9/L (04/19/21 14:59:00) Lymph Absolute: 1 E9/L (04/19/21 14:59:00) [place] Absolute: 0.4 E9/L (04/19/21 14:59:00) Eos Absolute: 0.1 E9/L (04/19/21 14:59:00) Basophil Absolute: 0 E9/L (04/19/21 14:59:00) PT: 11.7 second(s) (04/19/21 14:59:00) INR: 1 (04/19/21 14:59:00) PTT: 34.2 second(s) (04/19/21 14:59:00) Glucose Lvl: 124 mg/dL (04/20/21 05:58:00) BUN: 15 mg/dL (04/20/21 05:58:00) Creatinine: 0.6 mg/dL (04/20/21 05:58:00) eGFR: >60 (04/20/21 05:58:00) eGFR AA: >60 (04/20/21 05:58:00) BUN/Creat Ratio: 25 High (04/20/21 05:58:00) Sodium Lvl: 142 mmol/L (04/20/21 05:58:00) Potassium Lvl: 3.7 mmol/L (04/20/21 05:58:00) Chloride: 106 mmol/L (04/20/21 05:58:00) CO2: 25 mmol/L (04/20/21 05:58:00) AGAP: 15 mEq/L (04/20/21 05:58:00) Calcium Lvl: 9.2 mg/dL (04/20/21 05:58:00) Troponin: 17.6 pg/mL (04/19/21 23:57:00) BNP: 76 pg/mL (04/19/21 14:59:00) UA Spec Desc: Clean Catch (04/20/21 10:45:00) UA Color: Yellow2 (04/20/21 10:45:00) UA Clarity: SL CLOUDY (04/20/21 10:45:00) UA Spec Grav: 1.020 (04/20/21 10:45:00) UA pH: 6.5 (04/20/21 10:45:00) UA Protein: NEGATIVE1 (04/20/21 10:45:00) UA Glucose: NEGATIVE1 (04/20/21 10:45:00) UA Ketones: NEGATIVE1 (04/20/21 10:45:00) UA Bili: NEGATIVE1 (04/20/21 10:45:00) UA Blood: Trace2 Abnormal (04/20/21 10:45:00) UA Nitrite: NEGATIVE1 (04/20/21 10:45:00) UA Urobilinogen: 0.2 (04/20/21 10:45:00) UA Leuk Est: NEGATIVE1 (04/20/21 10:45:00) UA RBC: 0-3 (04/20/21 10:45:00) UA Squam Epithelial: 0-2 (04/20/21 10:45:00) UA WBC: 0-5 (04/20/21 10:45:00) UA Bacteria: Trace2 (04/20/21 10:45:00) UA Mucous: 1+ (04/20/21 10:45:00) Physical Exam Vitals & Measurements T: 36.7 ?C (Oral) TMIN: 36.7 ?C (Oral) TMAX: 36.9 ?C (Oral) HR: 80(Monitored) RR: 16 BP: 131/79 SpO2: 97% WT: 64.6 kg General: alert, no acute distress ENMT: oral mucosa moist, no pharyngeal erythema or exudate Cardiovascular: regular rate and rhythm, normal peripheral perfusion Respiratory: Lungs CTA, respirations non labored Abdomen: soft, NTND, +BS Skin: warm, dry, intact Extremities: no deformity, no trauma Neurological: LOC appropriate for age, CN II-XII intact, motor strength equal & normal bilaterally, sensation equal & normal bilaterally, speech normal Images XR Chest Single View 04/20/21 07:39:44 IMPRESSION: BIBASILAR ATELECTASIS. 6 MM PULMONARY NODULE IN THE LEFT LUNG BASE. RECOMMEND COMPARISON TO OLD CHEST X-RAY, IF AVAILABLE. CLINICAL HISTORY: Chest pain high blood pressure COMPARISON: NONE. FINDINGS: AP upright portable chest was obtained with patient?s some rotation to the right and poor inspiration. The size heart is within normal limit and bronchovascular markings are unremarkable. There are bibasilar atelectasis. There is a 6 mm pulmonary nodule in the left lung base. Signed By: Allan Childers M.D. Discharge Plan Discharge Status: Improved Discharge Instructions Given: To patient Discharge disposition: Home Prescriptions reviewed with PatientPatient 1. Chest pain, (R07.9: Chest pain, unspecified)Chest pain, unspecified 2. Essential (primary) hypertension, (I10: Essential (primary) hypertension)Hypertension 3. DVT prophylaxis, (Z29.9: Encounter for prophylactic measures, unspecified)Encounter for prophylactic measures, unspecified Orders: lisinopril, 5 mg = 1 tab(s), Oral, Daily, # 30 tab(s), Refills(s) 0 Discharge Patient NM Myocardial Spect Rest/Stress 1 Day Discharge Medication List Prescriptions lisinopril 5 mg Tab, 5 mg= 1 tab(s), Oral, Daily Home aspirin 81 mg O (more content not included)...[facility] Comment: Electronically Signed By: ÁNGELA SINHA, Patrick\.br\Date and Time Signed: 04/20/21 13:09 [id number] NoteChief Complaint Sharp pains in chest weakness and tremors History of Present Illness 88-year-old female with no significant past medical history, who presented to the ER with chest pain. Left sided sharp pain wake her up from sleep, never had similar pain before, check blood pressure at home was elevated , The pain lasted for a minute, she took 2 baby ASA at home, no chest pain in the ER (as per the patient she never been diagnosed with HTN, she is not taking any medication for high blood pressure, she is following up with her family doctor regularly) Denies any cough no shortness of breath no lower extremity swelling No dizziness, no headache, No fever no chills, The patient will be admitted under hospitalist service, rule out ACS, Anticipate less than 2 midnight hospital stay Review of Systems Constitutional: no fever, no chills, no sweats, no weakness Skin: no Jaundice, no rash, no lesions, nopetechiae ENMT: no ear pain, no sore throat, no congestion, no hoarseness Respiratory: no shortness of breath, no cough, no orthopnea, no wheezing Cardiovascular: See above no palpitations, no edema Gastrointestinal: no nausea, no vomiting, no diarrhea, no GI bleeding Genitourinary: no dysuria, no hematuria, no discharge, no pain Musculoskeletal: no back pain, no trauma Neurologic: no headache, no dizziness, no numbness, no weakness Psychiatric: no sleeping problems, no irritability, no mood swings/depression. Additional ROS info: Except as noted in the above Review of Systems and in the History of Present Illness all other systems have been reviewed and are negative or noncontributory. Physical Exam Vitals & Measurements T: 36.9 ?C (Oral) HR: 80(Peripheral) RR: 16 BP: 188/87 SpO2: 96% WT: 65.0 kg General: alert, no acute distress Skin: warm, dry Head: no trauma, normocephalic Neck: Trachea midline, no adenopathy, no tenderness Eye: normal conjunctiva, sclera clear ENMT: TM's clear, oral mucosa moist, no pharyngeal erythema or exudate Cardiovascular: regular rate and rhythm, normal peripheral perfusion Respiratory: Lungs CTA, respirations non labored Chest wall: no deformity. Gastrointestinal: soft, non distended, no tenderness, no guarding. Back: No tenderness, Normal ROM, Normal alignment. Extremities: no deformity, no trauma Neurological: oriented x 4, LOC appropriate for age, CN II-XII intact, motor strength equal & normal bilaterally, sensation equal & normal bilaterally, speech normal Psychiatric: cooperative, affect appropriate for age, normal judgement, normal psychiatric thoughts. Lab Results WBC: 4.4 E9/L (04/19/21 14:59:00) RBC: 3.8 E12/L Low (04/19/21 14:59:00) Hgb: 12.5 gm/dL (04/19/21 14:59:00) Hct: 36.6 % (04/19/21 14:59:00) MCV: 97.2 fL (04/19/21 14:59:00) MCH: 33 pg (04/19/21 14:59:00) MCHC: 34 gm/dL (04/19/21 14:59:00) RDW: 13.1 % (04/19/21 14:59:00) Platelet: 277 E9/L (04/19/21 14:59:00) MPV: 9.5 fL (04/19/21 14:59:00) Neutro Auto: 65.7 % (04/19/21 14:59:00) Lymph Auto: 23.5 % (04/19/21 14:59:00) [place] Auto: 8.8 % (04/19/21 14:59:00) Eos Auto: 1.2 % (04/19/21 14:59:00) Basophil Auto: 0.8 % (04/19/21 14:59:00) Neutro Absolute: 2.9 E9/L (04/19/21 14:59:00) Lymph Absolute: 1 E9/L (04/19/21 14:59:00) [place] Absolute: 0.4 E9/L (04/19/21 14:59:00) Eos Absolute: 0.1 E9/L (04/19/21 14:59:00) Basophil Absolute: 0 E9/L (04/19/21 14:59:00) PT: 11.7 second(s) (04/19/21 14:59:00) INR: 1 (04/19/21 14:59:00) PTT: 34.2 second(s) (04/19/21 14:59:00) Glucose Lvl: 115 mg/dL (04/19/21 14:59:00) BUN: 18 mg/dL (04/19/21 14:59:00) Creatinine: 0.9 mg/dL (04/19/21 14:59:00) eGFR: 60 mL/min/1.73 m2 (04/19/21 14:59:00) eGFR AA: >60 (04/19/21 14:59:00) BUN/Creat Ratio: 20 (04/19/21 14:59:00) Sodium Lvl: 138 mmol/L (04/19/21 14:59:00) Potassium Lvl: 3.4 mmol/L Low (04/19/21 14:59:00) Chloride: 102 mmol/L (04/19/21 14:59:00) CO2: 27 mmol/L (04/19/21 14:59:00) AGAP: 12 mEq/L (04/19/21 14:59:00) Calcium Lvl: 9.2 mg/dL (04/19/21 14:59:00) Troponin: 24.4 pg/mL (04/19/21 19:08:00) BNP: 76 pg/mL (04/19/21 14:59:00) Images No qualifying data available. Assessment/Plan 1. Chest pain (R07.9: Chest pain, unspecified) -Chest pain at home, no chest pain in the ER - EKG sinus rhythm first-degree AV block nonspecific T inversion - Troponin x1 not elevated, BNP within normal limits The patient states that she is taking aspirin daily at home Follow-up chest x-ray final reading Troponin trend Cardiology consult Telemetry Ordered: aspirin, 81 mg = 1 tab(s), Tab-Chew, Chewed, Daily, Stop date 05/21/21 9:00:00 EDT, Routine, Start date 04/20/21 9:00:00 EDT, 04/19/21 20:50:00 EDT 2. Hypertension (I10: Essential (primary) hypertension) Hypertension urgency Systolic blood pressure 190s in the ER, was given labetalol IV , SBP down to 170, with IV labetalol IV hydralazine as needed Continue to monitor blood pressure Ordered: aspirin, 81 mg = 1 tab(s), Tab-Chew, (more content not included)...[facility]:Result Comment: Electronically Signed By: Susanne SINHA, Andre\.br\Date and Time Signed: 04/19/21 21:01 [id number] History general Narrative - Reported* Type Description Date Medical History Bronchiectasis without complicat ion Medical History Essential hypertension Medical History Elevated cholesterol Surgical History BTL 11/28/2017 Hospitalization History see surgical history [facility] Other 04-09-2018 History general Narrative - Reported* Type Description Date Medical History Bronchiectasis without complicat ion Medical History Essential hypertension Medical History Elevated cholesterol Medical History BRVO left eye Surgical History BTL 11/28/2017 Hospitalization History see surgical history [facility] Other Evaluation noteNo InformationNort [place] Other Evaluation noteNo assessment information available [facility] Work Phone: Reason for referral (narrative)* Reason Referral for SNHL, t innitus, otalgia/headache and dizziness Diagnosis 1 Tinnitus, right ear (H93.11) Diagnosis 2 Sensorineural hearin g loss, unilateral, right ear, 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 (H90.A21) Diagnosis 3 Episodic paroxysmal hemicrania, 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 Andino has mult iple ear related complaints, which have no obvious etiology. She has longstanding SNHL and tinnitus but recently developed dizziness and otalgia/headache. Her examination was unremarkable and due to a myriad of symptoms an MRI was obtained to exclude brain tumor and vascular disease. She is being referred for further evaluation and treatment. Clinical Notes Include MRI [facility] Other Summary Purpose Family History Relationship Condition Age at Onset Recorded Date/T jonathan Not Specified Malignant neoplasm Unknown Advance Directives Advance Directive Response Recorded Date/ Time Advance Directives No September 1:36pm Chief Complaint and Reason for Visit Chief Complaint UA-Burning, Frequenc y, Pain Additional Source Comments INFORMATION SOURCE (unrecogn ized section and content) DATE CREATED AUTHOR 03/14/2022 [facility] DATE CREATED AUTHOR AUTHOR'S ORGANIZ ATION 08/18/2022 [facility] DATE CREATED AUTHOR AUTHOR'S ORGANIZ ATION 08/23/2023 [facility] EPIC REASON FOR VISIT (unrecogniz ed section and content) dizzinessmedicationNo Inform ationdizzinessMRI resultsReferralWellnessNo InformationNo InformationCT/Lab ResultsUA - burning frequency Care Teams (unrecognized sec tion and content) Team Status: Active Member Role Status Dates Lg Oviedo DO Primary Care Provider Active Team Status: Inactive Member Role Status Dates Lg Oviedo DO Primary Care Provide r, Attending Provider Active Start: October 14, 2023 End: October 14, 2023 Goals (unrecognized section and content) Goals may be documented in a n alternate section FOR RECORDS PERTAINING TO PATIENTS WHO ARE OR HAVE BEEN ENROLLED IN A CHEMICAL DEPENDENCY/SUBSTANCEABUSE PROGRAM, SOME INFORMATION MAY BE OMITTED. This clinical summary was aggregated from multiple sources. Caution should be exercised in using it in the provision of clinical care. This summary normalizes information from multiple sources, and as a consequence, information in this document may materially change the coding, format and clinical context of patient data. In addition, data may be omitted in some cases. CLINICAL DECISIONS SHOULD BE BASED ON THE PRIMARY CLINICAL RECORDS. [facility]. provides no warranty or guarantee of the accuracy or completeness of information in this document.
--- NOTE | 2023-11-11 09:24 | XR_ITS ---
The [address] [address] Patient Name: LOLA ANDINO MRN: [id number] date: 1940 Sex: F Assigned Patient Location: [facility] Current Patient Location: RAD Accession/Order Number: [id number] Exam Date: 11/11/2023 09:18 Report Date: 11/11/2023 09:42 At the request of: HALIMA HONG Procedure: XR chest 2V PROCEDURE: XR chest 2V DATE: 11/11/2023 8:18 AM CDT COMPARISONS: CT chest 05/17/2023. Chest radiograph 01/06/2022 CLINICAL INDICATION: 83 years Female Bronchiectasis J47.9 FINDINGS: The cardiomediastinal silhouette and pulmonary vasculature are within normal limits. There is been slight scattered subcentimeter nodularity of the lungs on previous CTs felt to be granulomatous changes. Today's chest radiograph shows no significant lung nodularity. There is no evidence of lung masses or infiltrates. There is no evidence of pleural effusion or pneumothorax. XR/XR chest 2V IMPRESSION: Stable chest. Electronically authenticated by: EARNEST GAN Date: 11/11/2023 09:42
== END 2023-11-11 09:08 | disposition home or self-care (01) ==
LOC: RAD 09:08
PROVIDERS: PCP Internal Medicine; Visit Provider Internal Medicine
DX: J47.9 Bronchiectasis, uncomplicated (principal)
CPT/HCPCS: 71046

== ENCOUNTER 2023-12-28 09:30 | Outpatient (OUT) | payer MEDICARE, SELFPAY ==
--- NOTE | 2023-12-28 09:38 | XR_ITS ---
The [address] [address] Patient Name: LOLA ANDINO MRN: [id number] date: 1940 Sex: F Assigned Patient Location: [facility] Current Patient Location: [facility] Accession/Order Number: [id number] Exam Date: 12/28/2023 09:45 Report Date: 12/28/2023 14:02 At the request of: HALIMA HONG Procedure: XR knee LT 4V PROCEDURE: XR knee LT 4V COMPARISON: None. HISTORY: Left Knee Pain FINDINGS: BONES:No acute fracture or dislocation. Tricompartmental osteoarthritis with [id number] articulation the medial compartment. Marginal osteophyte formation. SOFT TISSUES:Negative. No visible soft tissue swelling. EFFUSION:Small joint effusion OTHER: Vascular calcifications XR/XR knee LT 4V IMPRESSION: Osteoarthritis, severe in the medial compartment Electronically authenticated by: MALCOM MAGANA Date: 12/28/2023 14:02
== END 2023-12-28 09:31 | disposition home or self-care (01) ==
LOC: RAD 09:31
PROVIDERS: PCP Internal Medicine; Visit Provider Internal Medicine
DX: M25.562 Pain in left knee (principal); M17.12 Unilateral primary osteoarthritis, left knee
CPT/HCPCS: 73564

== ENCOUNTER 2024-02-29 08:11 | Outpatient (OUT) | payer MEDICARE, SELFPAY ==
[2024-02-29 09:18] LABS: Basophils Percent Auto 0.9 % (0.2-2.0); Eosinophils Absolute Auto 0.2 10^3/uL (0.0-0.7); Eosinophils Percent Auto 4.4 % (0.9-7.0); Hematocrit 34.2 % (36.0-48.0); Hemoglobin 11.4 g/dL (12.0-16.0); Immature Granulocytes Abs Auto 0.01 10^3/uL (0.00-0.03); Immature Granulocytes Pct Auto 0.2 % (0.0-0.5); Lymphocytes Absolute Auto 1.2 10^3/uL (1.2-3.8); Lymphocytes Percent Auto 26.9 % (20.5-60.0); Mean Corpuscular HGB Conc 33.3 g/dL (29.9-35.2); Mean Corpuscular Hemoglobin 32.6 pg (26.7-34.0); Mean Corpuscular Volume 97.7 fL (81.0-99.0); Mean Platelet Volume 11.3 fL (9.5-13.5); Monocytes Absolute Auto 0.5 10^3/uL (0.3-0.8); Monocytes Percent Auto 11.1 % (1.7-12.0); Neutrophils Absolute Auto 2.6 10^3/uL (1.4-6.5); Neutrophils Percent Auto 56.5 % (43.0-75.0); Platelet Count 283 10^3/uL (150-450); Red Cell Distribution Width 12.4 % (11.0-15.0); White Blood Count 4.6 10^3/uL (4.0-11.0)
== END 2024-02-29 08:12 | disposition home or self-care (01) ==
LOC: LAB 08:12
PROVIDERS: PCP Internal Medicine; Visit Provider Internal Medicine
DX: D64.9 Anemia, unspecified (principal)
CPT/HCPCS: 36415; 82607; 82728; 83540; 83550; 85025

== ENCOUNTER 2024-04-27 07:35 | Outpatient (OUT) | payer MEDICARE, SELFPAY ==
--- OUTSIDE RECORDS SUMMARY | 2024-04-27 07:40 | XMS_ITS | CCD ---
Author Organization [facility]ini[facility] Care Team Providers Care Pst Supervisor Name Role Phone PREET, DR VARGHESE Admitting [...] Care Unavailable BALL, DR VARGHESE Consulting Unavailable PREET, DR VARGHESE Admitting Unavailable BALL, DR VARGHESE Attending Unavailable BALL, DR VARGHESE Primary Care Unavailable BALL, DR VARGHESE Consulting Unavailable Preet, Lg Unavailable LORI GUNTER Attending Unavailable PREET, LG Bishop Referring Unavailable LORI GUNTER Attending Unavailable Allergies Allergy Classification Reported Allergen(s) Allergy Type Date of Onset Reaction(s) Facility (6 sources) Clindamycin Drug Allergy 05-12-20 Unknown Reaction [facility]ository (12 sources) Penicillin Drug Allergy Unknown [facility] (16 sources) Aspirin Drug Allergy 06-05-20 15 Unknown, Unknown Reaction [facility] (16 sources) Ciprofloxacin Drug Allergy 06-26-20 Unknown, Unknown Reaction [facility] (11 sources) Clindamycin Drug Allergy Unknown [facility] Other (16 sources) Ibuprofen Drug Allergy 06-05-20 15 Unknown, Unknown Reaction [facility] (11 sources) Fluticasone Propionate *NASAL AGENTS - SYSTEMIC AN Propensity to adverse reactions 06-26-20 Unknown [facility] Other (5 sources) Penicillins Allergy to substance 05-12-20 Unknown Reaction [facility] (5 sources) Fluticasone Propionate *NASAL Allergy to substance 05-12-20 Unknown Reaction [facility] Medications Current Medications Medication Drug Class(es) Dates Sig (Normalized) Sig (Original) amLODIPine 5 mg oral tablet (18 sources) Dihydropyridine Calcium Channel Meena Start: 02-15-2024 take 1 tablet by mouth once daily Amlodipine Active 0 .ROUTE .COMPLEX February 15, 2024 9:15am TAKE 1 TABLET BY MOUTH EVERY DAY FOR 30 DAYS Start: 12-22-2023 End: 02-15-2024 take 5 mg by mouth once daily Amlodipine Discontinued 5 MG PO Daily December 22, 2023 11:23am February 15, 2024 9:15am Start: 10-24-2023 End: 12-22-2023 take 1 tablet by mouth once daily Amlodipine Discontinued 0 .ROUTE .COMPLEX October 24, 2023 2:00pm December 22, 2023 11:23am TAKE 1 TABLET BY MOUTH EVERY DAY FOR 30 DAYS Start: 10-24-2023 End: 10-24-2023 take 5 mg by mouth once daily Amlodipine Discontinued 5 MG PO Daily October 24, 2023 1:00am October 24, 2023 2:00pm Start: 05-10-2023 take 1 tablet by brandon th every twenty-four hours amLODIPine Besylate 5 MG 1 tablet Orally Once a day for 30 days Apr, Active diazePAM 5 mg oral tablet (5 sources) Benzodiazepine Start: 04-01-2023 take 1 tablet by mouth every hour Valium 5 MG 1 tablet Orally Taken one time, one hour prior to MRI for 1 days Mar, Active lisinopril 10 mg oral tablet (15 sources) Angiotensin Converting Enzyme Inhibitor Start: 11-09-2023 take 10 mg by mouth once daily Lisinopril Active 10 MG PO Daily November 09, 2023 12:00am Start: 08-09-2022 take 1 tablet by brandon th once daily Lisinopril 10 MG lisinopriL 10mg, 1 tablet daily # 30, 08/09/2022, Ref. x11. Active Oral daily Jul, Active sulfamethoxazole 800 mg / trimethoprim 160 mg oral tablet (1 source) Dihydrofolate Reductase Inhibitor Antibacterial, Sulfonamide Antimicrobial Start: 06-17-2023 take 1 tablet by mouth every twelve hours Sulfamethoxazole-Trimethoprim 800-160 MG 1 tablet Orally Twice a day for 5 days May, Active Completed/Discontinued Medications Medication Drug Class(es) Dates Sig (Normalized) Sig (Original) azithromycin 250 mg oral tablet (3 sources) Macrolide Antimicrobial Start: 12-23-2023 End: 02-26-2024 Azithromycin Discontinued 250 MG PO As Directed 6 December 23, 2023 12:00am February 26, 2024 7:52am doxycycline hyclate 100 mg oral capsule (7 sources) Tetracycline-class Drug Start: 11-09-2023 End: 12-23-2023 take 100 mg by mouth twice daily Doxycycline Hyclate Discontinued 100 MG PO Twice daily 14 December 22, 2023 12:00am December 23, 2023 4:09pm nitrofurantoin, macrocrystals 25 mg / nitrofurantoin, monohydrate 75 mg oral capsule (2 sources) Nitrofuran Antibacterial Start: 12-28-2023 End: 02-26-2024 take 1 capsule by mouth twice daily at mealtime Nitrofurantoin Monohyd/M-Cryst (Macrobid) 100 mg capsule Discontinued 100 MG PO Twice daily 10 December 28, 2023 12:00am February 26, 2024 7:52am must administer with a meal/food Problems Active Problems Problem Classification Problem Date Documented Date Episodic/Chronic Acute bronchitis (2 sources) Acute bronchitis due to other specified organisms; Translations: [Acute bronchitis] 12-22-2023 Episodic Anxiety disorders (13 sources) Claustrophobia; Translations: [Claustrophobia] Chronic Chronic obstructive pulmonary disease and bronchiectasis (20 sources) Bronchiectasis; Translations: [Bronchiectasis, uncomplicated] 11-08-2023 Chronic Conditions associated with dizziness or vertigo (3 sources) Dizziness and giddiness Episodic Deficiency and other anemia (6 sources) Anemia, unspecified; Translations: [Anemia, unspecified] Onset: 08-10-2022 Episodic Deficiency and other anemia (2 sources) Anemia; Translations: [Anemia, unspecified] 02-28-2024 Episodic Disorders of lipid metabolism (18 sources) Hypercholesterolemia; Translations: [Pure hypercholesterolemia, unspecified] Chronic Essential hypertension (20 sources) Essential (primary) hypertension; Translations: [Essential hypertension] Onset: 05-06-2022 Chronic Genitourinary symptoms and ill-defined conditions (1 source) Dysuria Episodic Headache; including migraine (17 sources) Episodic paroxysmal hemicrania; Translations: [Episodic paroxysmal hemicrania, 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 Malaise and fatigue (2 sources) Other fatigue; Translations: [Other malaise and fatigue] 11-09-2023 Episodic Osteoarthritis (3 sources) Osteoarthritis of knee; Translations: [Unilateral primary osteoarthritis, unspecified knee] 02-26-2024 Chronic Other aftercare (2 sources) Other senior living (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; Translations: [OTH COMMISSARY REPRESENTATIVE CURRENT DRUG THERAPY] Onset: 05-10-2022 Episodic Other connective tissue disease (4 sources) Disease suspected; Translations: [Other symptoms and signs involving the nervous system] 11-09-2023 Episodic Other connective tissue disease (2 sources) Other symptoms and signs involving the nervous system; Translations: [Other symptoms involving nervous and musculoskeletal systems] 11-09-2023 Episodic Other diseases of veins and lymphatics (2 sources) Venous insufficiency of leg; Translations: [Venous insufficiency (chronic) (peripheral)] 02-28-2024 Episodic Other diseases of veins and lymphatics (2 sources) Venous insufficiency (chronic) (peripheral); Translations: [Venous (peripheral) insufficiency, unspecified] 02-28-2024 Episodic Other ear and sense organ disorders (20 sources) Bilateral hearing loss; Translations: [Sensorineural hearing loss, unilateral, left ear, 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] 11-08-2023 Chronic Other ear and sense organ disorders [...] right ear Episodic Other lower respiratory disease (8 sources) Solitary pulmonary nodule; Translations: [Solitary pulmonary nodule] Onset: 04-06-2022 Episodic Other lower respiratory disease (11 sources) Nodule of lung; Translations: [Solitary pulmonary nodule] 11-08-2023 Episodic Other non-traumatic joint disorders (6 sources) Pain in left knee; Translations: [Left knee pain] 12-22-2023 Episodic Other screening for suspected conditions (not [...] Test Name Value Interpretation Reference Range Facility Basophils Auto (Bld) [#/Vol] on 02-29-2024 Basophils (Bld) [#/Vol] 0.0 10 3/uL 0.0-0.1 [facility] Basophils/100 WBC Auto (Bld) on 02-29-2024 Basophils/100 WBC (Bld) 0.9 % 0.2-2.0 [facility] Eosinophils/100 WBC Auto (Bl d)on 02-29-2024 Eosinophils/100 WBC (Bld) 4.4 % 0.9-7.0 [facility] Erythrocyte distribution wid th Auto (RBC) [Ratio]on 02-29-2024 Erythrocyte distribution width (RBC) [Ratio] 12.4 % 11.0-15.0 [facility] Hematocrit Auto (Bld) [Volum e fraction]on 02-29-2024 Hematocrit (Bld) [Volume fraction] 34.2 % Low 36.0-48.0 [facility] Hemoglobin [Mass/volume] in Bloodon 02-29-2024 Hemoglobin (Bld) [Mass/Vol] 11.4 g/dL Low 12.0-16.0 [facility] Iron binding capacity [Mass/ volume] in Serum or Plasmaon 02-29-2024 Iron binding capacity [Mass/Vol] 237.0 ug/dL Low 250.0-450.0 [facility] Iron saturation [Mass Fracti on] in Serum or Plasmaon 02-29-2024 Iron saturation [Mass fraction] 46.0 % [facility] Laboratory - Chemistry and C hemistry - challengeon 02-29-2024 Cobalamin (Vitamin B12) [Mass/Vol] 800.0 pg/mL 193.0-986.0 [facility] Ferritin [Mass/Vol] 206.0 ng/mL 8.0-252.0 [facility] Iron [Mass/Vol] 109.0 ug/dL 50.0-170.0 [facility] - Hematology and Cell countson 02-29-2024 Immature granulocytes/100 WBC (Bld) 0.2 % 0.0-0.5 [facility] Leukocytes [#/volume] correc pool for nucleated erythrocytes in Blood by Automated counon 02-29-2024 WBC corrected for nucl RBC Auto (Bld) [#/Vol] 4.6 10 3/uL 4.0-11.0 [facility] Lymphocytes Auto (Bld) [#/Vo l]on 02-29-2024 Lymphocytes (Bld) [#/Vol] 1.2 10 3/uL 1.2-3.8 [facility] Lymphocytes/100 WBC Auto (Bl d)on 02-29-2024 Lymphocytes/100 WBC (Bld) 26.9 % 20.5-60.0 [facility] MCH Auto (RBC) [Entitic mass ]on 02-29-2024 MCH (RBC) [Entitic mass] 32.6 pg 26.7-34.0 [facility] MCHC Auto (RBC) [Mass/Vol]on 02-29-2024 MCHC (RBC) [Mass/Vol] 33.3 g/dL 29.9-35.2 [facility] MCV Auto (RBC) [Entitic vol] on 02-29-2024 MCV (RBC) [Entitic vol] 97.7 fL 81.0-99.0 [facility] Monocytes Auto (Bld) [#/Vol] on 02-29-2024 Monocytes (Bld) [#/Vol] 0.5 10 3/uL 0.3-0.8 [facility] Monocytes/100 WBC Auto (Bld) on 02-29-2024 Monocytes/100 WBC (Bld) 11.1 % 1.7-12.0 [facility] Neutrophils Auto (Bld) [#/Vo l]on 02-29-2024 Neutrophils (Bld) [#/Vol] 2.6 10 3/uL 1.4-6.5 [facility] Neutrophils/100 WBC Auto (Bl d)on 02-29-2024 Neutrophils/100 WBC (Bld) 56.5 % 43.0-75.0 [facility] No Panel Informationon 02-28 Eosinophils # (Auto) 0.2 10 3/uL 0.0-0.7 [facility] Immature Granulocyte # (Auto) 0.01 10 3/uL 0.00-0.03 [facility] Platelet mean volume Auto (B ld) [Entitic vol]on 02-29-2024 Platelet mean volume (Bld) [Entitic vol] 11.3 fL 9.5-13.5 [facility] Platelets Auto (Bld) [#/Vol] on 02-29-2024 Platelets (Bld) [#/Vol] 283 10 3/uL 150-450 [facility] RBC Auto (Bld) [#/Vol]on RBC (Bld) [#/Vol] 3.50 10 6/uL Low 4.20-5.40 [facility] Laboratory - Chemistry and C hemistry - challengeon 12-28-2023 Bilirubin Ql (U) Negative [facility] Glucose (U) [Mass/Vol] Negative [facility] Ketones Ql (U) Negative [facility] pH (U) 6.0 [pH] [facility] Specific gravity (U) [Rel density] 1.015 [facility] Urobilinogen (U) [Mass/Vol] 0.2 mg/dL [facility] Laboratory - Specimen inform ationon 12-28-2023 Appearance (U) Cloudy [facility] Color (U) Yellow [facility] Laboratory - Urinalysison Leukocyte esterase Test strip Ql (U) 2+ [facility] Nitrite Ql (U) Positive [facility] Protein Ql (U) 2+ [facility] No Panel Informationon 12-27 Urine Occult Blood 2+ [facility] Basophils Auto (Bld) [#/Vol] on 11-09-2023 Basophils (Bld) [#/Vol] 0.0 10 3/uL 0.0-0.1 [facility] Basophils/100 WBC Auto (Bld) on 03-20-2024 Basophils/100 WBC (Bld) 0.8 % 0.2-2.0 [facility] Eosinophils/100 WBC Auto (Bl d)on 11-09-2023 Eosinophils/100 WBC (Bld) 3.6 % 0.9-7.0 [facility] Erythrocyte distribution wid th Auto (RBC) [Ratio]on 11-09-2023 Erythrocyte distribution width (RBC) [Ratio] 12.3 % 11.0-15.0 [facility] Estimated glomerular filtrat ion rate (GFR) non- Americanon 11-09-2023 GFR/1.73 sq M.predicted among non-blacks MDRD (S/P/Bld) [Vol rate/Area] mL/min/{1.73_m2} >=60 [facility] Globulin Calc (S) [Mass/Vol] on 11-09-2023 Globulin (S) [Mass/Vol] 3.2 g/dL [facility] Hematocrit Auto (Bld) [Volum e fraction]on 11-09-2023 Hematocrit (Bld) [Volume fraction] 36.2 % 36.0-48.0 [facility] Hemoglobin [Mass/volume] in Bloodon 11-09-2023 Hemoglobin (Bld) [Mass/Vol] 11.9 g/dL 12.0-16.0 [facility] Laboratory - Chemistry and C hemistry - challengeon 11-09-2023 Albumin [Mass/Vol] 3.7 g/dL 3.4-5.0 [facility] ALP [Catalytic activity/Vol] 152 U/L 46-116 [facility] ALT [Catalytic activity/Vol] 20 U/L 14-59 [facility] AST [Catalytic activity/Vol] 15 U/L 15-37 [facility] Bilirubin [Mass/Vol] 0.2 mg/dL 0.2-1.0 [facility] Calcium [Mass/Vol] 9.1 mg/dL 8.5-10.1 [facility] Chloride [Moles/Vol] 105 mmol/L 98-107 [facility] CO2 [Moles/Vol] 30.6 mmol/L 21.0-32.0 [facility] Creatinine [Mass/Vol] 0.83 mg/dL 0.55-1.02 [facility] GFR/1.73 sq M.predicted MDRD (S/P/Bld) [Vol rate/Area] mL/min/{1.73_m2} >=60 [facility] Glucose [Mass/Vol] 107 mg/dL 74-106 [facility] Potassium [Moles/Vol] 3.4 mmol/L 3.5-5.1 [facility] Protein [Mass/Vol] 6.9 g/dL 6.4-8.2 [facility] Sodium [Moles/Vol] 142 mmol/L 136-145 [facility] TSH Qn 1.941 m[IU]/L 0.358-3.740 [facility] Urea nitrogen [Mass/Vol] 21.0 mg/dL 7.0-18.0 [facility] Urea nitrogen/Creatinine [Mass ratio] 25.3 mg/mg [facility] Laboratory - Hematology and Cell countson 11-09-2023 Immature granulocytes/100 WBC (Bld) 0.2 % 0.0-0.5 [facility] Leukocytes [#/volume] correc pool for nucleated erythrocytes in Blood by Automated counon 11-09-2023 WBC corrected for nucl RBC Auto (Bld) [#/Vol] 5.1 10 3/uL 4.0-11.0 [facility] Lymphocytes Auto (Bld) [#/Vo l]on 11-09-2023 Lymphocytes (Bld) [#/Vol] 1.4 10 3/uL 1.2-3.8 [facility] Lymphocytes/100 WBC Auto (Bl d)on 11-09-2023 Lymphocytes/100 WBC (Bld) 27.2 % 20.5-60.0 [facility] MCH Auto (RBC) [Entitic mass ]on 11-09-2023 MCH (RBC) [Entitic mass] 32.5 pg 26.7-34.0 [facility] MCHC Auto (RBC) [Mass/Vol]on 11-09-2023 MCHC (RBC) [Mass/Vol] 32.9 g/dL 29.9-35.2 [facility] MCV Auto (RBC) [Entitic vol] on 11-09-2023 MCV (RBC) [Entitic vol] 98.9 fL 81.0-99.0 [facility] Monocytes Auto (Bld) [#/Vol] on 11-09-2023 Monocytes (Bld) [#/Vol] 0.5 10 3/uL 0.3-0.8 [facility] Monocytes/100 WBC Auto (Bld) on 11-09-2023 Monocytes/100 WBC (Bld) 9.5 % 1.7-12.0 [facility] Neutrophils Auto (Bld) [#/Vo l]on 11-09-2023 Neutrophils (Bld) [#/Vol] 3.0 10 3/uL 1.4-6.5 [facility] Neutrophils/100 WBC Auto (Bl d)on 11-09-2023 Neutrophils/100 WBC (Bld) 58.7 % 43.0-75.0 [facility] No Panel Informationon 11-08 Eosinophils # (Auto) 0.2 10 3/uL 0.0-0.7 [facility] Immature Granulocyte # (Auto) 0.01 10 3/uL 0.00-0.03 [facility] Platelet mean volume Auto (B ld) [Entitic vol]on 11-09-2023 Platelet mean volume (Bld) [Entitic vol] 11.2 fL 9.5-13.5 [facility] Platelets Auto (Bld) [#/Vol] on 11-09-2023 Platelets (Bld) [#/Vol] 336 10 3/uL 150-450 [facility] RBC Auto (Bld) [#/Vol]on RBC (Bld) [#/Vol] 3.66 10 6/uL 4.20-5.40 [facility] Serum or plasma albumin/glob ulin mass ratioon 11-09-2023 Albumin/Globulin [Mass ratio] 1.2 {ratio} [facility] Serum or plasma anion gap de terminationon 11-09-2023 Anion gap [Moles/Vol] 9.8 mmol/L [facility] Laboratory - Chemistry and C hemistry - challengeon 10-14-2023 Bilirubin Ql (U) Negative [facility] Glucose (U) [Mass/Vol] Negative [facility] Ketones Ql (U) Negative [facility] pH (U) 6.5 [pH] [facility] Specific gravity (U) [Rel density] 1.010 [facility] Urobilinogen (U) [Mass/Vol] 0.2 mg/dL [facility] Laboratory - Specimen inform ationon 10-14-2023 Appearance (U) Clear [facility] Color (U) Yellow [facility] Laboratory - Urinalysison Leukocyte esterase Test strip Ql (U) Negative [facility] Nitrite Ql (U) Negative [facility] Protein Ql (U) Trace [facility] No Panel Informationon 10-14 Urine Occult Blood Negative [facility] Urinalysis - DIPSTICKon 05-23 Appearance (U) cloudy [employer] Other Bilirubin Ql (U) Negative [employer] Other Color (U) yellow [employer] Other Glucose Ql (U) Negative [employer] Other Hemoglobin Ql (U) 6.5 [employer] Other Ketones Ql (U) Negative [employer] Other Leukocyte esterase Test strip Ql (U) large [employer] Other Nitrite Ql (U) Negative [employer] Other pH (U) 5 [pH] [employer] Other Protein Ql (U) 17 [employer] Other Specific gravity (U) [Rel density] 1.020 [employer] Other Urobilinogen (U) [Mass/Vol] Negative [employer] Other Urinalysis - DIPSTICK [facility] [employer] Other CBC AUTO DIFFon 08-10-2022 BASO # 0.0 103/ul Normal 0.0-0.1 [facility] Comment on above: Performed By: #### C BC #### [facility] [address] [place] [address] Dr. Bo Brown Basophils/100 WBC (Bld) 0.9 % Normal 0.2-2.0 [facility] Comment on above: Performed By: #### C BC #### [facility] [address] [place] [address] Dr. Bo Brown EO # 0.1 103/ul Normal 0.0-0.7 [facility] Comment on above: Performed By: #### C BC #### [facility] [address] [place] [address] Dr. Bo Brown Eosinophils/100 WBC (Bld) 2.1 % Normal 0.9-7.0 [facility] Comment on above: Performed By: #### C BC #### [facility] [address] [place] [address] Dr. Bo Brown Erythrocyte distribution width (RBC) [Ratio] 12.2 % Normal 11.0-15.0 [facility] Comment on above: Performed By: #### C BC #### [facility] [address] [place] [address] Dr. Bo Brown Hematocrit (Bld) [Volume fraction] 34.1 % Critically low 36.0-48.0 [facility] Comment on above: Performed By: #### C BC #### [facility] [address] [place] [address] Dr. Bo Brown Hemoglobin (Bld) [Mass/Vol] 11.3 g/dL Critically low 12.0-16.0 [facility] Comment on above: Performed By: #### C BC #### [facility] [address] [place] [address] Dr. Bo Brown IG # 0.01 10e3/ul Normal 0.00-0.03 [facility] Comment on above: Performed By: #### C BC #### [facility] [address] [place] [address] Dr. Bo Brown IG % 0.2 % Normal 0.0-0.5 [facility] Comment on above: Performed By: #### C BC #### [facility] [address] [place] [address] Dr. Bo Brown LYMPH # 1.2 103/ul Normal 1.2-3.8 [facility] Comment on above: Performed By: #### C BC #### [facility] [address] [place] [address] Dr. Bo Brown Lymphocytes/100 WBC (Bld) 28.8 % Normal 20.5-60.0 [facility] Comment on above: Performed By: #### C BC #### [facility] [address] [place] [address] Dr. Bo Brown MANUAL DIFF REQ NO Normal [facility] Comment on above: Performed By: #### C BC #### [facility] [address] [place] [address] Dr. Bo Brown MCH (RBC) [Entitic mass] 32.6 pg Normal 26.7-34.0 [facility] Comment on above: Performed By: #### C BC #### [facility] [address] [place] [address] Dr. Bo Brown MCHC (RBC) [Mass/Vol] 33.1 g/dL Normal 29.9-35.2 [facility] Comment on above: Performed By: #### C BC #### [facility] [address] [place] [address] Dr. Bo Brown MCV (RBC) [Entitic vol] 98.3 fL Normal 81.0-99.0 [facility] Comment on above: Performed By: #### C BC #### [facility] [address] [place] [address] Dr. Bo Brown MONO # 0.4 103/ul Normal 0.3-0.8 [facility] Comment on above: Performed By: #### C BC #### [facility] [address] [place] [address] Dr. Bo Brown Monocytes/100 WBC (Bld) 9.7 % Normal 1.7-12.0 [facility] Comment on above: Performed By: #### C BC #### [facility] [address] [place] [address] Dr. Bo Brown NEUT # 2.5 103/ul Normal 1.4-6.5 [facility] Comment on above: Performed By: #### C BC #### [facility] [address] [place] [address] Dr. Bo Brown Neutrophils/100 WBC (Bld) 58.3 % Normal 43.0-75.0 [facility] Comment on above: Performed By: #### C BC #### [facility] [address] [place] [address] Dr. Bo Brown Platelet mean volume (Bld) [Entitic vol] 10.5 fL Normal 9.5-13.5 [facility] Comment on above: Performed By: #### C BC #### [facility] [address] [place] [address] Dr. Bo Brown PLT 294 103/ul Normal 150-450 [facility] Comment on above: Performed By: #### C BC #### [facility] [address] [place] [address] Dr. Bo Brown RBC 3.47 106/ul Critically low 4.20-5.40 [facility] Comment on above: Performed By: #### C BC #### [facility] [address] [place] [address] Dr. Bo Brown WBC 4.2 103/ul Normal 4.0-11.0 [facility] Comment on above: Performed By: #### C BC #### [facility] [address] [place] [address] Dr. Bo Brown IRON AND TIBCon 08-10-2022 % SATURATION 41.4 % Normal [facility] Comment on above: Performed By: #### B 12FOL, FETIBC #### [facility] [address] [place] [address] Dr. Bo Brown Iron [Mass/Vol] 91.0 ug/dL Normal 50.0-170.0 [facility] Comment on above: Performed By: #### B 12FOL, FETIBC #### [facility] [address] [place] [address] Dr. Bo Brown TIBC DIRECT 220.0 ug/dL Critically low 250.0-450.0 [facility] Comment on above: Performed By: #### B 12FOL, FETIBC #### [facility] [address] [place] [address] Dr. Bo Brown VIT B12 AND FOLATEon 022 Cobalamin (Vitamin B12) [Mass/Vol] 987.0 pg/mL Critically high 193.0-986.0 [facility] Comment on above: Performed By: #### B 12FOL, FETIBC #### [facility] [address] [place] [address] Dr. Bo Brown FOLATE 17.70 ng/mL Normal 8.60-58.90 [facility] Comment on above: Performed By: #### B 12FOL, FETIBC #### [facility] [address] [place] [address] Dr. Bo Brown CBC AUTO DIFFon 05-06-2022 BASO # 0.0 103/ul Normal 0.0-0.1 [facility] Comment on above: Performed By: #### C BC #### [facility] [address] [place] [address] Dr. Bo Brown Basophils/100 WBC (Bld) 0.7 % Normal 0.2-2.0 [facility] Comment on above: Performed By: #### C BC #### [facility] [address] [place] [address] Dr. oB Brown EO # 0.1 103/ul Normal 0.0-0.7 [facility] Comment on above: Performed By: #### C BC #### [facility] [address] [place] [address] Dr. Bo Brown Eosinophils/100 WBC (Bld) 2.6 % Normal 0.9-7.0 [facility] Comment on above: Performed By: #### C BC #### [facility] [address] [place] [address] Dr. Bo Brown Erythrocyte distribution width (RBC) [Ratio] 12.7 % Normal 11.0-15.0 [facility] Comment on above: Performed By: #### C BC #### [facility] [address] [place] [address] Dr. Bo Brown Hematocrit (Bld) [Volume fraction] 35.2 % Critically low 36.0-48.0 [facility] Comment on above: Performed By: #### C BC #### [facility] [address] [place] [address] Dr. Bo Brown Hemoglobin (Bld) [Mass/Vol] 11.6 g/dL Critically low 12.0-16.0 [facility] Comment on above: Performed By: #### C BC #### [facility] [address] [place] [address] Dr. Bo Brown IG # 0.02 10e3/ul Normal 0.00-0.03 [facility] Comment on above: Performed By: #### C BC #### [facility] [address] [place] [address] Dr. Bo Brown IG % 0.5 % Normal 0.0-0.5 [facility] Comment on above: Performed By: #### C BC #### [facility] [address] [place] [address] Dr. Bo Bronw LYMPH # 1.1 103/ul Critically low 1.2-3.8 [facility] Comment on above: Performed By: #### C BC #### [facility] [address] [place] [address] Dr. Bo Brown Lymphocytes/100 WBC (Bld) 25.8 % Normal 20.5-60.0 [facility] Comment on above: Performed By: #### C BC #### [facility] [address] [place] [address] Dr. Bo Brown MANUAL DIFF REQ NO Normal [facility] Comment on above: Performed By: #### C BC #### [facility] [address] [address] [address] Bo Brown MCH (RBC) [Entitic mass] 32.6 pg Normal 26.7-34.0 [facility] Comment on above: Performed By: #### C BC #### [facility] [address] [place] [address] Dr. Bo Brown MCHC (RBC) [Mass/Vol] 33.0 g/dL Normal 29.9-35.2 [facility] Comment on above: Performed By: #### C BC #### [facility] [address] [place] [address] Dr. Bo Brown MCV (RBC) [Entitic vol] 98.9 fL Normal 81.0-99.0 [facility] Comment on above: Performed By: #### C BC #### [facility] [address] [place] [address] Dr. Bo Brown MONO # 0.4 103/ul Normal 0.3-0.8 [facility] Comment on above: Performed By: #### C BC #### [facility] [address] [place] [address] Dr. Bo Brown Monocytes/100 WBC (Bld) 9.5 % Normal 1.7-12.0 [facility] Comment on above: Performed By: #### C BC #### [facility] [address] [place] [address] Dr. Bo Brown NEUT # 2.6 103/ul Normal 1.4-6.5 [facility] Comment on above: Performed By: #### C BC #### [facility] [address] [place] [address] Dr. Bo Brown Neutrophils/100 WBC (Bld) 60.9 % Normal 43.0-75.0 [facility] Comment on above: Performed By: #### C BC #### [facility] [address] [place] [address] Dr. Bo Brown Platelet mean volume (Bld) [Entitic vol] 10.7 fL Normal 9.5-13.5 [facility] Comment on above: Performed By: #### C BC #### [facility] [address] [address] [address] Bo Brown PLT 284 103/ul Normal 150-450 [facility] Comment on above: Performed By: #### C BC #### [facility] [address] [address] [address] Bo Brown RBC 3.56 106/ul Critically low 4.20-5.40 [facility] Comment on above: Performed By: #### C BC #### [facility] [address] [address] [address] Bo Brown WBC 4.3 103/ul Normal 4.0-11.0 [facility] Comment on above: Performed By: #### C BC #### [facility] [address] [place] [address] Dr. Bo Brown PROF CHEM 8 (BAS METB)on Anion gap [Moles/Vol] 9.7 mmol/L Normal [facility] Comment on above: Performed By: #### B MP #### [facility] [address] [place] [address] Dr. Bo Brown Calcium [Mass/Vol] 8.8 mg/dL Normal 8.5-10.1 [facility] Comment on above: Performed By: #### B MP #### [facility] [address] [place] [address] Dr. Bo Brown Chloride [Moles/Vol] 103 mmol/L Normal 98-107 [facility] Comment on above: Performed By: #### B MP #### [facility] [address] [place] [address] Dr. Bo Brown CO2 [Moles/Vol] 28.9 mmol/L Normal 21.0-32.0 [facility] Comment on above: Performed By: #### B MP #### [facility] [address] [place] [address] Dr. Bo Brown Creatinine [Mass/Vol] 0.69 mg/dL Normal 0.55-1.02 [facility] Comment on above: Performed By: #### B MP #### [facility] [address] [place] [address] Dr. Bo Brown EGFR-AF WELSH >60 Normal >=60 [facility] Comment on above: Performed By: #### B MP #### [facility] [address] [place] [address] Dr. Bo Brown EGFR-NON AF WELSH >60 Normal >=60 [facility] Comment on above: Performed By: #### B MP #### [facility] [address] [address] [address] Bo Brown Glucose [Mass/Vol] 111 mg/dL Critically high 74-106 [facility] Comment on above: Performed By: #### B MP #### [facility] [address] [place] [address] Dr. Bo Brown Potassium [Moles/Vol] 3.6 mmol/L Normal 3.5-5.1 [facility] Comment on above: Performed By: #### B MP #### [facility] [address] [place] [address] Dr. Bo Brown Sodium [Moles/Vol] 138 mmol/L Normal 136-145 [facility] Comment on above: Performed By: #### B MP #### [facility] [address] [place] [address] Dr. Bo Brown Urea nitrogen [Mass/Vol] 15.0 mg/dL Normal 7.0-18.0 [facility] Comment on above: Performed By: #### B MP #### [facility] [address] [place] [address] Dr. Bo Brown Urea nitrogen/Creatinine [Mass ratio] 21.7 mg/mg Normal [facility] Comment on above: Performed By: #### B MP #### [facility] [address] [place], [place] [id number] Dr. Bo Brown CT CHEST WO CONon [...] by: GALA TRIANA Date: 2022-04-07 06:28 Normal [facility] XR CHEST 2 Von 01-06-2022 [...] by: MALCOM MAGANA Date: 2022-01-06 09:15 Normal [facility] Consent for Treatmenton 10-0 Consent for Treatment [phone] 1 [id number] 81#[email or web address]:127 Normal [facility] Coding Summary.on 05-18-2021 Coding Summary. CD:[id number] NTu5sXk+PGhlYWQ+PE1 EHWHhG09otIBrjX7CJ1 aTEZ6YJSDSWIHDUM0SE S5psOJ5KJmxC9XwpgBz HxilyRNvLC45DLd5IPQ 2rVqeUYmfgU0kdNYcC9 y4ZwSgHI63bG61SXtsV BQgEoN1EzQzuzzxmIWj F8afTgCrxCFdJvl+PHR hYmxlIHdpZHRoPScxMD EwKgAscGhlHZ8vXy0fL GVyLWNvbGxhcHNlOiBj y5ceZRNtDTzoHE7vxVo pK2NulFI5GKTfd9z0Nk 48dHI+MFMsFIZ0jCtbI Agam192BgHkv4ngRKV8 iDNsQXquDLG0P32hj9D 0UWXcJWJmHCV3mOY3wV 4uqNicjztiS7MuaMQyE yJ7XRZ9kRVmaH1cjKep cavfsW3aXfd+Z11NRS8 XCRQRJR7CIgc8X7QaPb wvdHI+GZ97SGPcEG31v QMhkXWjw5twxGy9LhNn ZSAeJAA7zWhbGKnrd1P qJTChZ61snHQip1S1NG GsaAvcuMWmDsWlpEN7b U5fSGdjxovoi0kblyix Kpnko5cgqj95kU43N16 oSYffLQAjGZA3GTFlRE MqhHltnc2ppZ5yRg4+I Vhvu1vjd8upsNs5YdFe SHClsfXnoWteATE8z6T fLo08M8GepHxif5YaCm p5vp61fZOnu2Z5wIP5V QvbTTLdzV1bUWspJrH7 RZUbQxDxtB05rIDwGDk qAj1sjZktuZtwUP8dOH PklnsqBBMpjU1dHKDtv EAxeJgbQI8kDCFijsfy b999VuRnYGF8RIGznEV sT2CalC3tPdKhCGOaGH ImM3GyhOBlXOmgO691O JrxGaI7FOLgldLwT7Ri DEBbvNfrWpH6k0N0Wl4 Xj4SiqjkwEFK3ZScbQZ N2VoB9QwDsTwN6Y1HkF rw1DXRrsAiqHU2nO4Zm SUVkwznbroxqnKI7IIE rSBNinO16bTTzCVwsVs 7yr5V6j334ARPoYRJsy H83Jr9ohPkqZIMkvORR hG1zrkjtf6obrelzPuL oTVNwHAt6HQn8KBIbxQ gjPiIrEXE4FlN2ETK6d JGbhD3wfTvokunmhG7w Oyc+D88xhG5jRUX3PPL 8rcsqSGOedzBsZN16BB 38K2PmClyduSIjcAJ+P FWqoqLauNotLY9lUkWl x6afa6SoNDdrW7DpBNY fKYprHwv9YRFqUIB1rL D8pB2lKWEsYWsea7B2v HZ4S0NnvaUxmk0br4qh WIZwMAhpQ65pgFGbg0R 5ASRydPN8CQPvuPmfPl AplO08Byu+PGNvbGdyb 6BrBgixu6qkw1dbhTd1 IjMwJSIgdmFsaWduPSJ 3s5OfJe17C60jTHwmTC RoPSIxNSUiIHZhbGlnb t0jcR9oVv7+PGNvbCB3 vJB1bO1kVPJlEyA7WXm qA553UmOxsNIoDhqme9 bng9bwiNy5ItLaSJVrw jZnzOzzGRK4l7FaFf78 O84xERutCVJqRFFjLFV dZZLaqJsuyo0ucI2wUc 8+TJ2kf3hxeq48fV10t HI+AXWeBIY4zWiiHVnh CBJdrK9aBSahSyG9RIY gXzDpvG52lFZwQMveRt 1qrPgplOwzAV3pFFXjt orhe476MtRnz8pqKEIo rGQgYMzuWGU8J29ia7O 8GMBvBSTlJIQ1tSV8lG 1hbGlnbjogbGVmdDsgd lBzqEqsTHlhWHevL913 IHRvcDsnPlBhdGllbnQ pCzPsISp7Y9FlEqa4NY YzpVzhHC0ilOOwUSqpW x3yeGmvqMxhRL2hPCGj usrro868VhXfo9mdJWR buXYqXCctQSX3J72de6 B5PNWrQYYvWLT8sHQ8y X1jqCfxzcajnKCsrYjg drFreNajCTjkKZbyL39 6IHRvcDsnPkJpcnRoIE GbgNA8TE09LM09hMIbi 3B7oHV9J8VuMZHdqmkq amhwzKC0JRUdGKDlaE3 6Bz4ssRdfNw8cFPTjZT T7VUXsvJRuV0GcfI3vR lUcSYEfIYXbC9PtcTQm VBucU242OUebPiQ4YVO ludXuI5OzYAHdpOceDg H5k8E5Fr8SO5L2XC29H H77yTRkt0B7zLT2J5Eg ELTwtivxjxozoNF9CJV zEWKjuJ97In7waYgaRk 5wZZEsJPS1SQSokAMbA 6JoaE5xIkWfPOIrNBPs G4ZksUZwVIkcS112GLn kOgO9NBGvwxBbN1IsDE OxxDsqYeZ8t5O0Pk4CU Hb7WF47UT95oPPcj0R6 aTW3S0VxUEOlfphzzmy ngBT3IXMdHQBzfW16Ne 0vgAbpQp7dRDVqVOR7O UYdvRTwA1QzbL2iPdBd VZAgMTSbW0VxcVCuVCe eV392WUvzXtI7ZUKqri WdG8UyPBVzyPeiMyK5g 5O1Sr5QYDRvDU17VCW3 pDX0GK06LF15G4YhRky vdGFibGU+PHRhYmxlIH dpZHRoPScxMDAlJyBzd ZakPT0xPe6eNXWtNEIj fZcmxZJdUzLfq5qxJCE iWUduJZ3zoJloB7ZbpR S7MAPvz7x1Vs37S59yT 3JvdXA+XARdqZG4pTW3 cF4eVaWuVlM3CPdkR61 6JdHxbIDhQgbyj8jfw3 nabMt5FzL3KWKpngZkt DxvWLU1k9CtRl68I57e IHdpZHRoPSIxNSUiIHZ yhRxexi9bsO6yKe6+PG LpkOY7kRW8rI3wVmBbL aZ4TAlyP553CmRsxDJn Jeyth6beo5nckXi4DnU iKKCwtoLwbGifMLV9i3 FePu73F2LkpHwxh0AoB ns1xa51dZGlo8W9dFD7 F3NlPGBtonxpcDNbmPp bTR9dNIKbcnjxCRVuzP 1fYDOmA5v3GaGqEyM9Y VihH4BvoqR9DNHppEGe UHyhHWI9U10ee1O5WRQ rGXTuMXY3zMI8lD6ghP lnbjogbGVmdDsgdmVyd HioWZvpRJhvB069GODq aGxkLXIgbJ3dMUBwlHH cpXvsTZ4bPARyroioHu pBLz1XKnrtS9VPG9eJK xRKKW24SL51lZXwv1A4 lPF2V2GoBGMscknmhhm afLH7BZArWPQeyH87cJ KlARaaKn6th3W0y050D KAxTBMnsO44Nr1edHke JECwvSPEsP4inikxj9j lndrwUaUvYAIsBEf2EV s4DXIwsOesDbFbGUT7P kT2QHP2vACftP8cnUya zshddX4yPij+MTAvMzE vMTkzOTwvdGQ+PHRkIH D7sUcvDZceXINpgV4eZ TNlY2f3XkRwAfF7WFuy H6ZfOQLqnpkuXw37hD4 pPrPdSrM1CVqiM9Jblz B4QXPokHSoNMvdGKH6M 62mv0W5PTAlWCHiVTS5 xZG4uU4etVejwopgyKB mdDsgdmVydGljYWwtYW luD234ABSfyCpyKkjsT AbjVQPwMR73VN05gRLp j0E8aES7E7RqCBNoiax vieseqWG5ERAnPBMurX 09eCYnZEpoUd9ko7E0m 583LZMoVQNqrW39Sd4f fYsiQHXijXRXgS0xhhb kv3uwiqghHrEsCKGdAH u1DDp7VNYycBsvDeDmI RK9DyV8TZC2nXPcyT6o bZicjakdiA8bJbh+RmV dVXavVR86KU50mELhg0 A7iQN1J2DjUMPflsquk kbeiXQ7IUPzMBRefT83 fPDtIZudXa6pz7Z9a24 9GSBiLEDbcZ03Ij8kbR oxVRAgqIDAkE1vkmsqd 5rvfbwiExYoCIQqARk3 HDy4ILGscOlgEzAzWQE 2UjG2EKP7wLRanG4nmE htkuuhgV0lWvr+T3V0c FO6sXBmoMlcoTJ+PC90 tq04B8AyZdmnPeg5KGF nOAP8qFQ6lZ9qYQUyLV bzf5A6uAK2Q9CnkmLsl r3cc7byJFZhTTexF34e lIFxh4C9FUEqbCO5OPR mxFbgEjEktK35Tcb+PG HcxOelf8PrUzjfj5tqw 1sciMz4WnFuGEEdygKo lQbyYLX5c0YnXq87J50 sIHdpZHRoPSIzMCUiIH TrjYtsev2ktA0jEk9+P YWlkSI0zKQ9uN4eSgEd YoN1QHihN299ReKwbEF lAhjrs4lcl3sicPy8Um RcTMYjdmGweEbdOIH5h 7GkEy70A5UekYlmu3Ye Twq6jk93zMSdb7A7zBA 2U3GrMFLtsqiblWGdoN gzIC6yUWUjvkmjKMUem R4oLGJwF3w6BnIdPkW8 NOceM5VpfqY9HGCraNK nCYIsmGAXzI2uvrqlb3 qmedjyHvGeWAFkFPq6R Ve2RZLceVyzKqXhGSO8 DaV8FKO6eXDctV1roJe prkwzjJ0yHjm+UGh5c2 jnrYAtIW6bhFC4TB86J F24zVBch4L7sXJ3Y1Nd QAAzqexiphnukAG4DDZ oPFXrsR95Cp2xpQbtAg 8rDZLgBMH6RQOplTQbO 6TkwW5uOxGuYCUbPSKa R7QwlRQfEMzhD230ZLo hLpS5TEPsfhWdP6JgCN WfwZhvUvX2o6F4Yl5NH F67LX58HL85wTZkd0B4 rQR4P5BePWRxapyvozs boBZ6ACApVMNueC48Xt 9raRtkQu9tESOwSUM6Z AKmkFQoS8WtaI2oVwLr XJLfRNGwN9OdjDOjBCu tR285GJysGjJ9ZJOnzl YnD5JuMMTlkCwbNlC9p 2G4Zw2WHc82CQ32RM12 rFIni1V7pER9S1WhDQY ranioszdjeWG9CGHxUY GsaX36Vf3wgLorQi3kT CZcWGL5NGHisXFtF0Fm zT8tYbGoDBOiNKMlN0M ynEXsTJixR240ZUrwMk S4HCGivqFtP3FmYJDvt CpnMkU3f9Q7Np1YDQsz wnp4P2VuIzfrdGK+PC9 6BEUfSB16mFFlcCXzb8 skoGt5EfQvCVZkEBJ7q UmdFVyzo7FqZAJuA65j bGFw (more content not included)... Normal [facility] Coding Summary. CD:[id number] WTi5eJu+PGhlYWQ+PE1 JWLJqO04yjIUatL1VA6 fDHT3BIUBBQUYALO6LK Z4naID2WPxkJ2SucgCz TjrlxKKnHZ92CRa1RPR 1tJlvGLspeJ1tqUPlO6 x3QeUbKP42lX12BDssB OIvFfV9DvVxbcmkyRCy F1wvXkYeiNPtZvh+PHR hYmxlIHdpZHRoPScxMD LxWfMncOwjOG8qZq0aL GVyLWNvbGxhcHNlOiBj t5vwTHQtLQcdQV1zzAk eL5OzhYZ6AYDfm2a8At 48dHI+IFEmPCZ2dOlxT Xprc520MyBnl1tsLFY8 rHSbHUxlSQM9H00gx7X 6CKBjOGYsYUJ1hER0lA 7xgTkffsoaC8AlxRVoA fB1GSO1kNZmnZ0vbQfv czwspY4bSzm+U98MUK5 QZAJMZB0CMyq7T6YxGa wvdHI+VY75IFZgJI92q JZbqZYvi7knuTy5MvWk EIDdJAN1rNxtJDibq1V yKEKoO79unTKuk8A5IE ZaiWoidJOnGqBarKZ7z M2uAKrhgakar2nsbvfm Iisla2xral83vW35K32 nABtlVOYbHNR8CXYjDB OdnYmhvv6jaB5xUt9+I Jfjv3ctz3vrhSc3OrJg XOUlceJdkQsxCFL1b9F oVw37T3QzcVxcj2ZzWm v6tt68nIYsv9N8vEA0V UreNHBmtY9dBUgkJtW9 HJPxTgVxyS60pIDaDXk nIk8juQyheMltHC5dHL BerzibOVSarI9yXLSec KMfuQiuYN9bAVIjehux a935CzIeIIP1CMEocLW aM2RsnN7lMcQfPDUeZZ GyH3CzbRXoMLttI186M BzkNdA2EUWbqgFlV0Kx RCZwfCavMiS9t1J4Fz4 Vc2QhxmzsXIT2MTlqYK B8RlBuTuPuGjP2X0ZnI la7KDXttPtbZY0eL7If GMThztccamkrsJA1FJR qVIRjoM11aMAiKXlrLf 5lj7C4p410KBVbVASte R89Eq1yjXipAFUsbLWA bO6vppqri2vtezggMcZ dIKEsFBr8WQs8VVHkqO dyIhHdTOM5NiB8FDF3d EDbvH0wcFrqdfkjdK5l Oyc+I13tjM1bOXQ4GWF 8hqpnXVDurdXdGQ34YM 93I8DiQxxfxFTijIE+P DQfziIvwTpdBO9eKhQx v9gwg0PzARulU0NfXNQ mTHgqEur0XKSbLDK8eM I1kN0oCFJsSXxbp3K4w XY5D6JjcrJfsy9ke1ua YNKsJNiaK92yxFGyz3O 0TAXhpHP8HKFlpQnuHq HbfQ10Tkb+PGNvbGdyb 1IjQtzde0nma6hhoGi6 IjMwJSIgdmFsaWduPSJ 2e9SbOf33Z55pIOfsXC RoPSIxNSUiIHZhbGlnb n6okU0wVe7+PGNvbCB3 eNA8yE9fCLVzLvY6FXl hH680IkCpoPOmVqvgd5 yei4pjoMd1HvDtJNHgg cAbpAvcBLD4h4FxDb91 E17mJNolWIFxALGrOKO dTYGhePxqhr2upQ3nJi 8+GH7pm4luoq82iI96v HI+XLUkBXU4aMqrFKtn ROYjpQ2yZJkjDxQ1ADK aNrGkpF97eNEdABehCn 6qpQxypXioOQ7xMYAav zvyj002XdYky2aqRJWg kNMfYQrhOLY3P11yj2V 7KKFsRULvYWS1mQF2zP 1hbGlnbjogbGVmdDsgd xXftXtpQEpjMGbdG315 IHRvcDsnPlBhdGllbnQ sIsRcYXm1T3JyUbg8OT NymJcpSC7pqITyWVbeP n0bbRozsOpcDI0xWVIz wkjgw031LePho6qtRTI jgZBqTZmvZCM0C21gd0 J6MDQqDATiPUL9tRZ3y O8uqGyorbchcRUhfDuf hrKgcGzxFSmhBJreP67 6IHRvcDsnPkJpcnRoIE AjdLI7PT91MV45yKChe 1U0fLH7X1KcTHOszgcm lphhqOZ6OYEmJYUqhV4 9Gw0ngLgfQk7uSTUtEI Z7MKJcvOUjR1FojI7pG qLgWZAvZDLjS9QvzTFi JVhmN759OMwzLmI8YMQ wbmYwH5RrAHHhrNfvEa Q9g1A1Ln5HG5D5KF10R F51qXFvx6D4wMA2H7Hl AWBhutugasqlrKK7GQD lDSNszA71Og4yhCcwAm 2zBVXbXKP4WSEvwRYvL 8KvhO8aMfPoHFNfHSWk V3KgzCGxFYrfU576BNc yDbZ6OVSvwcDgW7OpTD FtuPcrFjB6k4A1Va9XJ Mc8PN22EJ78dEPtd2Y8 kOJ8U4NqZWNvqhxyfnn ibNH5DGKnXGXiqX54Fg 3joGwgHz4zJIQjEMH5W XHnzUUqT1UgfM7jLcRo CKIrKDRaT9OmbXPlZGq zB962XGdnUqT7YMAbtc LgX0LfZSXxnFlxLzY2q 5S5Gs0STXFrMW56OED0 yXR6DP97CM93L9LkUtf vdGFibGU+PHRhYmxlIH dpZHRoPScxMDAlJyBzd XuzQX0vLo6uONLjTYUw mTguwNEeXmAof5uvPJK sEHgzMI5zpIumA7HjgG R5FWAca1p8Ep56D74wL 3JvdXA+QBSwdOD4fCT9 jA7bFhIuGiG2SScuR55 1DzOxgXRtHpnkv5tuk0 xxuRj5ViN3CRKvljNgq QimGZY6v2XeBv11K56p IHdpZHRoPSIxNSUiIHZ zbUixbd3xkN3sSs1+PG UisNN6mDE3bW8zNiNbQ gL5EVfuF665IsBgiBVa Johko5xij9badEu5OnO sQVYggiWewOtaVGK1g0 NyNk86D7SeoXxob4GgK px5wq51hGTrt6Y1iCM6 L2BoHHUvxibkfVUshAw aEL2tCHBwycfaZKEctX 7wHGFtA1y9NaCoBoZ9C SkkY3NoatD0IMQjvPSx FTvyQUM0W61zf4G5SYL aKUQfGVG4mCU8iQ1zpQ lnbjogbGVmdDsgdmVyd OoyNIdjOJcmK391WQHi zRydFQPbbD3rEMIafTO ibUhlZC0dVMNlfqmhFt dAPi4NTxezT3WPL3jOJ iZPSS44XA07wZIru7P3 wLR2X0EbHNQwsnolwcx heOX9FHCmVIFgqR76nO WeKOqwRv6lz2U7m490P EWcXGStbX90Ze7vdBpu LWEyvPUMxU4ypjzwf8c xnejzIqOzPDIuCUy9ZX p1ZBSqhWeeHqWqNOJ9R bH7CWA3hYGybM4eyLjk tpjhxH4wZgy+MTAvMzE vMTkzOTwvdGQ+PHRkIH N5lFaaSIpkFYUwaN0nI GGnP1p3VlJkGtI1OTeh Q5SdKIByatcxDc02kH7 hZuKjRsC3SGhyZ9Wydr F0TZNxkCRqRCaoTOR8M 53oh7K9SOIjMCQfQDJ0 xZR5zF4voPvcukfueUJ mdDsgdmVydGljYWwtYW eqW186XPHfyWurPrsjP FqsRFLaWC90PZ79yWSx c5Z6fMC7M2MoGMDytwp vpeocrRS5SNVtXTVwhG 17zOYvMUoaHn0st1J1j 413OMMkROWndC44Au4z fKnmRLJfoYPQoZ8jhuv ug3uzzfmuXxGaKKBoXE m9UWn7FWThaOqfVbRgU UI1UkA5AWJ7cNVfdX8h wGmhfxzkjQ8mDji+RmV jONccQH08TB12cNYql6 G9xWI6Z7XvGTBbmddlb fpmwAP4XMIuLFQaqN17 eBBxVNguHi2rs0T1l75 8XDBqUHBvrW84Jy9uiQ oqXYWotVDYtW5rojtke 8hlkuyuAzNdIITgKPt7 BBi9RJOfvCbhYlCeKUI 6FkR0TCT4fPHtjX6jaH zpodunmJ2uPcg+T3V0c LC2mQKpxSzieTS+PC90 ex25B4ZdSfgdEua9RFM ySXR3dQW7sD7fYGVcRA moj6S7mEA6H1ZhdwPut h4mc5sqRTWjMRrqN48l uMGui5V9FZYqoUB3CTR deUzsAqYrjF35Qmu+PG YoqEfuq3MzDzcxc1lut 6ohxEv0TpKnBSYqibZk gPykINI6o4NrVz33H12 sIHdpZHRoPSIzMCUiIH PvfUyvdm6fyN7sPq2+P SVtgPH4yHL6hO3vElAq OkV8LEekX354AqNtzKF bNsbje1uhs0ibhCq3Ud TtPYXzebBgrCxvPLV8q 0KjWl05Z3SxiBwtd4Zb Eqg6go84nUQsg8W6hNK 1X2QkHYPpjmsdrLNdzE hkOA8vDSYpzomyERXlg W0wIWWpM9l5SsCiGzU2 RRgqS4UipcU1HJLltNJ cMMJviACPpJ7xwcuob5 juurbiApKvOSJfNGv1V Vw5DEWbrZcgGfPkTRS6 UzZ2EPK1hYHpuN6piKk drwsuzF4mJgu+UGh5c2 rfaICjWA9nhUF3NQ98X B94wPMvv3Y0cPT5N6Fo NEDaeqamfvtmqHX2YIX nLGLirI48Dw7bdStwCc 6xOPVqSOB0LLBvlIOsX 5RhuO5jCmXqOOIpTFSf G2EtmDDtZIqkS835IKf tGtN1RMHclpLvW6MvIC WjxPvyLtI0t8C0Xq7RF D04LU60NQ20nTVac3S2 uPB8E2VxGVTmmknrhic mxBD0KZIhGNOjiZ07Xd 6stVyaZl7nMQOpWWD6T VBjnWHcZ6AkoW0hAuIn WDAcMZAuX2NonENsGNt cC110MLvaBzW1KEFldf LjI1RlQNGdkAjpHdD0b 6C8Sw4JHs27BQ26RC20 ePCeq7H9gYD8E0QvXAR wmzyirawkjPW7AXWjQJ KsdR39Vo3oiPyhPg7pK XGzWXE2GLCvuFHgI7Jn uU2aKbClAUDdFUNnT6K zbDIaEVuyG179XZceRw Z7HMVretHcB0FgIUOxh GuvEaB6x8Y6Tq9PSMip rap0B2VgXwrdzOD+PC9 6MDStZX61mMZlsPYos9 fteAl8NaXbXUQgFAS2f ClaJGnic2IgNGBcX99k bGFw (more content not included)... Normal [facility] Consent for Treatmenton 04-23 Consent for Treatment [id number]#[id number]:127 Normal [facility] Heart and Vascular Office/Cl inic Noteon 05-11-2021 Heart and Vascular Office/Clinic Note History of Present Illness Lola Andino is an 80 year old female without significant cardiac history. She presented to [facility] [place]21 with complaints of chest pain. [...] She is going to go to a horse stud worker in the next week or so to [...] Tristan Shin MD 04/30/2021 16:28 EDT Normal [facility] Comment on above: Result Comment: Elec tronically Signed By: Sawyer SINHA, Nico Long.br\Date and Time Signed: 05/11/21 11:15 EDT Stress EKG Tracingson 2020 Stress EKG Tracings [id number]:127 Normal [facility] NM Myocardial Spect Rest/Str ess 1 Dayon [...] (Electronic Signature): 05/02/2021 10:12 am Signed by: Kip SINHA, Tristan Ashley Transcribed by: [email or web address] Technologist: JAELYN Technical Comments Rest Dose (mCi Tc99m Cardiolite): 10.1 Stress Dose (mCi Tc99M Cardiolite): 29.9 Normal [facility] Coding Summary.on 04-23-2021 Coding Summary. CD:[id number] KUj1lKe+PGhlYWQ+PE1 SIULaK43maXFgfN8JW4 jRUK8NNLOVNERQJY5UV H0byTQ8HZosA1ChhyCf PyzepYJkFK32ODn7XDL 0dYvmKEbztD5ywGPgI8 w0EsSeRO52lB62JEppN RWuDrU3AgBtytcweRMz F0xeHuHptLSaEon+PHR hYmxlIHdpZHRoPScxMD JiMaLlaOctLX8rMk2oF GVyLWNvbGxhcHNlOiBj t1qrMUUeHQjhIQ0aqOs qK4FsnQA2PLZcg0z9Yg 48dHI+CXMwJOO7sPyhN Fing766XeWvz2wqXBG0 iMTdRVavONL9D89zy5T 4LXBdVOYlOCZ6uJB8pA 5cbLjzcrotJ8EeqZEaG zM8JLG8xGOzqU4yaSdy drkwuL3pBsg+R27YHA1 DNVSLHC8WRyj8R6XgOy wvdHI+GO09KFUqOI65k CIywWXch2mstBe6WfGd FFOxMXU2fZonASssh1N iFACwN07ckPKcq7N2BP SxlLbdsEZuVcPklUY5h D5pVFlbxojri6ktrpsq Twgay3uqlq02cM62M88 lOTojIHBjTDD7HIKuFB GabChivx7jdF0gYt2+I Hnzk5yxg1oraRc9VbGg CWCfagPyrSkuAQK1v5D sEz20K0MqiHbsm2EdCh n8jn60aWGxs2Z8gLC8Y GavPXRbnC5eLVwhDiK6 BKMsKlNkeE25oUMwFZp oIv9fiLglmRajNR3uYD YtgufbAEVltT0fQYAgc TRanTezQD3kSDKvsnrf i270BrRfYUG2QTQkfXZ vB0NseM8iQfDeCPWbTC CdR8NrcUZsOBveJ339Y AvnPxL2WZNsbqDqF7Cx DQGrwQogYqD1s9T7Wq1 Ps0BkgermCUQ5CWohND H6MjMpNfSmNwF9E4NrH yz0OWTivFysWI9lZ4Ff FOWmsdczsvkxgZY7FTN jZBMlgZ50hLBjMEvySk 7nt4F5s464HABkXKEgk O30Xj9qnYycCSQmcUZJ tS5yvetua2qkgvexTeZ hBCPcVXu3OIh1CSSsbY njGzThPZT1EoS4TBS3g LDjcL6vdTyoziabzG5k Oyc+F20ueC9oSWV4TWH 0ngubFUSmyyKvQE91AC 00B2HaZvkuwRAkwBO+P ZYjdbWugNmlOJ4vSyBo e1xjg1PbIMldY8EiZDE tURaeZrw7IFQoQRE1yR S1hF6gHWFkVJraa9C3z KN4B9WwvwAoho9dz3zb IZZeYShhH11ygWVhz5G 8GRUvdKE6ZHHcgEgjDj ZaaZ78Vgf+PGNvbGdyb 0MjArmgj8yka2aadSn0 IjMwJSIgdmFsaWduPSJ 9e3KnZj16P25jCRgtBN RoPSIxNSUiIHZhbGlnb f5dpQ3aFb3+PGNvbCB3 vPH2qD8aAUYsPmR7CQi pV863ClNpcEMaBftxf4 xis1jeqGu9FtXjVTNnc qXipEkhOUL5d7AcMn09 L51kOBvrRAAyRVRxVVN cRWCumKcvtg4qyQ8wYm 8+WE7rz9eugx59tN24r HI+CIQbPBE9pQefNAnt CKZqbL1fEEhdIkM0GPC zPyGyiW95lSOgTVuxFx 8arIomtJsfPW7gPBJrf mkkv967CaVkp4nyZMBg lWCeDPzsWDI0S25zi9P 5IJWsBFUmZIC2kZP1bT 1hbGlnbjogbGVmdDsgd iIugWwwTIvnPFdyF709 IHRvcDsnPlBhdGllbnQ wVmMtXEj0I0XyIsu4RN OxeCisCN7ceCJlZZbdK q9bqXstvSrsHJ6wNAHs dhctn983SxEbu4blMSK kgGEmVEvrUPU2Z44qy6 F3EBWuTLHfNJE6ySB1j V8fmLrqrdidtQBlzJgf wyPkfXvyITzpWGjcK60 6IHRvcDsnPkJpcnRoIE NwmGR6MP91YL98aSBsm 3H4zXH1F1DqUXTiihlq nnfukZP3WVGzRRHmlP5 6Pz1njWiuRs0vBRQkUF O4ZCPfhYWqO3CoiA5jE cSyPQCpGNZcH7JgsLBz FKbhA072NVbzAqG8HRK uprDxU8XcMURfdWbqCg J0c4Y2Jt9SZ8R1VS69U S33wOQde8R2hMO3T3Pd WNRbboxtgpqfhJN1TCU aSIZncU92Cl0sfNekGa 9vBMUyIFZ8MNMvzOMpS 6VzrM4jUcCaKOWrQVCd F6BodQZaIAwiX272DGm hCpV9LYFhehRjS7WnBO MqzJhnHbZ2q5O5Lj1VF Hq2QJ56AG69kVNvh7O6 xUD5R8JpVFFrupomqhj wyXL3RBBgJUCdjB40Ag 8xhXadSt3tDYBxWTI9S XHfeQInI2VzpU9rSpPt SFHcIQKhE1FpxFDzXWm sB452RPucIkU9PJXjou HqV7QsSUXuaJjwYvU5l 4J8Qx3DLBAgEA69JCH3 jKU5CK77TA71A3EtVyx vdGFibGU+PHRhYmxlIH dpZHRoPScxMDAlJyBzd SeoCI7tOc8vULErVCZk wIjmkUSxBtVhk0hfYFA mYWhzGE6eoSxuH8QctI Q1YWNhh0g2Zg79K89pC 3JvdXA+VJBguXK0mRM1 wK5rIcRpOpC1OAppL73 9OjHjqFTnFvpej5ymv0 iekOb4GxY5QSMnqlOyi NaaZHQ1l5XvCt84K60e IHdpZHRoPSIxNSUiIHZ fxXjlsq3toJ3hPi5+PG FrhJK7yCQ2kU0uLrJmX eQ4GPrxP924ZwVkgPZz Bxslq2xzz3axlPw7CdF oABDkyvAlaEraTXJ7v2 HaUg87W8QovPcne0GiV xr0ir10jYTjc3R5xJX9 R9QgDRCjvxxriTSxgHc rVJ4qGLEbgifwQBGgxW 0bDPMtL2d3DwScRjB6Q TvwM1ZqpsV9OAEgnGPy NMbhYNT1H42ew5V0MGK mIWIpXWL3qZI8cB8tiX lnbjogbGVmdDsgdmVyd CpaSHsvPGjmK141ZLDl iNzgNJYegY9sZHKnbUM hkEwkCI8aMSBcafakZa sYQs4BEussC3GDB6vAC pZYAV22MX21sTQws0Q2 zLR0U3XgGTFivnndlgr rwNQ4CRQvSKAxqB64oQ AoROrtWz1tp7O5o991P QUlKXHzzJ01Aj4ilRub AFSxjCABeC1tfgnjc3v vwdhlLoXjWZDzBWl3XK x7JPTpgOilKuOaXRR4B xP5QBZ4mXZkeM7hnLxm ukigeS9xUns+MTAvMzE vMTkzOTwvdGQ+PHRkIH S5mJvbAOzsVAYskH3wX XVdV9g3HlZoHdZ5RIit J8ClJGCakwnlVq34pH7 gVrBfWvA2KChzA6Ncpp V3FYCceWQhMXzjUER7T 59yo5T9GTDoIZTpCYV7 kSX9bM2pqCggozkflDF mdDsgdmVydGljYWwtYW grN024BSZahXiyOnbkC LntIJLoQI21NS66hODc o8V2iJV7H9LnBVToltp xmtxkiAK0YDBqVNRfgP 16oQOeLEctTl7mk1J5l 674BSXdTBTibZ87Ws6f oPzyGLLgpSWKdF0rktq dj5xirkfaYoJkSKKiOL l6HXq1CZSghWtfBtUfD TR6ClX8IMK3iEOiyP5b gGmfjsfmnW2cWcn+RmV iVEbsDU46SC90aXBix5 V2xMQ9T4MtBLBqqbecc fehqNS9RSPsMCFgwC30 zSLdEUewVf4wc6L3l76 9OJRcKQFvwJ28Rp1amM ajUBQepHFBiS8tgjjoc 3rewuomEeSfNPFfDKq0 JUa4QTRgzYwrOkJsXAP 3WyF1LXJ0lDTkiF2afY sgvfbknS0pDsy+T2JzZ ZN7RNNup487U9GdKfzo dHI+YI36LVJiLX02nEL rsXKjm4ewuXf8HeGaTZ NeTAK5zUciKMtze2AaS ULvW02hwZPvz2Z4PQDr zXprqBNlNuSpoPR6zL8 kAQealpmty9oxyzvmPv eav1sqoq05lV61R65sC HdpZHRoPSIzMCUiIHZh eXmllp1cyA5mPc3+PGN wqBO1zTJ7uB1mYrQjRz R9VAitY827NtBscCXxR qaoa6dvw7tyoSy2AcLa TMSdwkEytKdmYHU8e0X bIm01W60wZGvqHECsCR EuPRHhYUWhmUdjvi3fe G9wIi8+FW0ky6afna96 mL52wJD+KJJfGCW5tAf iEQhbOMDdeO6nUXsmIg S5MIPrDlTifJ72zWObZ GvfRc4pcJxqaRxqKL8p OBTlatvxi888CkJqn8m tKXHjyMBxFNhiWMG7G6 8dx5N0JMVcPCIkVNM2g RP0jI4bkSdsjmkoaKMl dDsgdmVydGljYWwtYWx cG697LICtiNimVnYkpO JyL9uifsEESZ2jDbvov GQ+CDAfSXM6oDsuGVde DOKrtH5oUNQbV0e7EhA cThC2KCqrZ2HafdG7VS IqsRTfVUCmhUJSeP1sn kcca9dtvvhqBtFeTTVd BHc6LJg7FNSjrVsbExO zQSU0ZzV7UCL8mZWndK 0wbMsfuqajxY7yJnz+R klOOjwvdGQ+PHRkIHN0 kHliBNueBTEhzA4dHGH aE1d5UiKoChV4TQpjM4 FwqwE9FDXcrMMrZQOlw VXXqV2yhgkci9xbywiu HuElPDUwCTn4RSm4NNJ cgPmnWkEqMPZ0BhR6IS S5oZGjwG5ncZsujrrew G9wOyc+TVJOOjwvdGQ+ XQTvEGO3gLnaBGyvZYV mqN1jYSKdA1v0SlCbQx W5GYcqE8DaxnO2CMTgh QSkVLYpgLEPaT6qlmdp s1pjqfcmRjRsYKQiQSx 4FWy2ZAXwzPvzTgQjPF D6NgT1NOX8vCGdzC6ru DvegddanU1hPqg+UGF5 RUD3LP39GN27G2TzIwk vdGFibGU+PHRhYmxlIH dpZHRoPScxMDAlJyBzd WhxGO3vDj4rDTTtWZEq bGxh (more content not included)... Normal [facility] Interdisciplinary Note - Eric e Manageron 04-23-2021 Interdisciplinary Note - Digital Marketing Program Manager ED: Dangelo H/P: Silviadeannasilvio Profit: partial PIS (OBS/IN): OBS 04/19/20211920, TF: 04/19 1850 Chgs: D/C: VTE: MCG: +OBS/CP, -IP/CP Tele-yes ICU: <2mn-yes [facility] PAT (tests): no imaging at this time Readmit: no MM: OBS: ED: Dangelo H/P: Silviadeannasilvio Profit: done PIS (OBS/IN): OBS 04/19/20211920, TF: 04/19 1850 Chgs: done D/C: done VTE: na MCG: +OBS/CP, -IP/CP Tele-yes ICU: na <2mn-yes [facility] PAT (tests): no imaging at this time Readmit: no MM: done OBS: done Normal [facility] Comment on above: Result Comment: Elec tronically Signed By: Scott LEZAMA, Avani Ventura\elmer\Date and Time Signed: 04/23/21 15:59 EDT BMPon 04-20-2021 Anion gap [Moles/Vol] 15 mmol/L Normal 6-16 [facility] Comment on above: Performed By: #### 2 684320, [id number] #### [facility] Laboratory [address] [place] [address] Calcium [Mass/Vol] 9.2 mg/dL Normal 8.9-11.1 [facility] Comment on above: Performed By: #### 2 582884, [id number] #### [facility] Laboratory [address] [place] [address] Chloride [Moles/Vol] 106 mmol/L Normal 101-111 [facility] Comment on above: Performed By: #### 2 257577, 62805759 #### [facility] Laboratory [address] [place] [address] CO2 [Moles/Vol] 25 mmol/L Normal 21-31 [facility] Comment on above: Performed By: #### 2 804070, [id number] #### [facility] Laboratory [address] [place] [address] Creatinine [Mass/Vol] 0.6 mg/dL Normal 0.5-1.3 [facility] Comment on above: Performed By: #### 2 757050, [id number] #### [facility] Laboratory [address] [place] [address] Glucose [Mass/Vol] 124 mg/dL Normal 55-199 [facility] Comment on above: Result Comment: If t his glucose result represents a fasting glucose, interpretation should refer to the following reference range: 55-99 mg/dL Performed By: #### 2 590106, [id number] #### [facility] Laboratory [address] [place] [address] Potassium [Moles/Vol] 3.7 mmol/L Normal 3.5-5.3 [facility] Comment on above: Performed By: #### 2 304804, [id number] #### [facility] Laboratory [address] [place] [address] Sodium [Moles/Vol] 142 mmol/L Normal 135-145 [facility] Comment on above: Performed By: #### 2 138990, 16594552 #### [facility] Laboratory [address] [place] [address] Urea nitrogen [Mass/Vol] 15 mg/dL Normal 5-21 [facility] Comment on above: Performed By: #### 2 229454, [id number] #### [facility] Laboratory [address] [place] [address] Urea nitrogen/Creatinine [Mass ratio] 25 No Units High 10-20 [facility] Comment on above: Performed By: #### 2 287478, [id number] #### [facility] Laboratory [address] [place] [address] Cardiology Progress Noteon 0 04-20-2021 Cardiology Progress Note Cardiology Consult Received- full note to follow Reason for consult- Chest Pain Lola Andino is an 80 year old female without significant cardiac history. She presented [place] [facility] [place]21 with complaints of chest pain. [...] seen and examined with Dr. Shin. Normal [facility] Comment on above: Result Comment: Elec tronically [...] History Heart failure: Father and Brother. Normal [facility] Comment on above: Result Comment: Elec tronically Signed By: Kip SINHA, Tristan Ashley\.br\Date and Time Signed: 04/20/21 16:31 EDT Discharge Instructionson Discharge Instructions [id number]#1.00CD:127 Normal [facility] Inpatient Clinical Summaryon 04-20-2021 Inpatient Clinical Summary [place] [id number] Clinical Summary Person Information: Name: LOLA ANDINO Age: 80 Years : 1940 Sex: Female PCP: LG OVIEDO DO Marital Status: Unknown Race: White Ethnicity: Non- or Language: Ecuadorean Visit Id: Visit Reason: Shortness of breath; Chest pain; SOB, CHEST PAIN Speciality: Acuity: Enc Type: Observation Med Service: Medical Arrival: 04/19/2021 14:36:15 Discharge: 04/20/2021 12:33:00 Dispo Type: Home (Routine DC) Address: [address] [place] [phone] Provider Notes: Diagnosis: 1:Chest pain; 2:Hypertension; 3:DVT [...] Follow up: With: Address: When: Franklin Sousa [address] [place], [place] [id number] [phone] Business (1) Within 1 to 2 weeks Comments: follow up for pulmonary nodule With: Address: When: Tristan Shin [address] [place], [place] [phone] Business (1) Within 1 week Comments: Call for followup appointment With: Address: When: LG OVIEDO [address] [place], [place] [id number] Business (1) 04/24/2021 3:00 PM Patient Education Information: Hypertension, Adult lisinopril Normal [facility] Inpatient Patient Summaryon 04-20-2021 Inpatient Patient Summary [place] [id number] Patient Discharge Instructions PERSON INFORMATION Name: LOLA [...] None Follow up: With: Address: When: Franklin Sousa [address] [place] [phone] [facility] () Within 1 to 2 weeks Comments: follow up for pulmonary nodule With: Address: When: Tristan Shin [address] [place] [address] [facility] () Within 1 week Comments: Call for followup appointment With: Address: When: LG OVIEDO [address] [place] [id number] [facility] () 04/24/2021 3:00 PM In the event that [...] Mouth every day. Refills: 0. Pharmacy Information: [facility] Abiel Comment: PATIENT EDUCATION INFORMATION Instructions: Hypertension, [...] Shortness of breath. (more content not included)... [facility] Interdisciplinary Note - Eric e Manageron 04-20-2021 Interdisciplinary Note - Digital Marketing Program Manager Pt is awake and alert in bed, [...] per nursing. Anticipate DC home today 04/20. [facility] Comment on above: Result Comment: Elec tronically Signed By: Miguel LEZAMA, Yuli\.adwoa\Date and Time Signed: 04/20/21 10:09 EDT Interdisciplinary Note - Soc ial Workeron 04-20-2021 Interdisciplinary Note - Manager Emergency Computer generated consult for advanced directives received. This SW spoke with the patient who states that she already has HCPOA and LW completed. This SW requested a copy when she or family is able to bring in so that it can be scanned into her EMR. Patient is very appreciative for checking with her. SW will remain available. Normal [facility] Message from Medicareon 03-24 Message from Medicare [id number]#1.00CD:127 [facility] Monitor Recordon 04-20-2021 Monitor Record [id number]#1.00CD:127 Normal [facility] Monitor Record [id number]#1.00CD:127 Normal [facility] Pre-Certification Formon Pre-Certification Form [id number]#1.00CD:127 Normal [facility] Troponin 9 Hr.on 04-20-2021 Troponin I.cardiac [Mass/Vol] 17.60 pg/mL Normal 10.10-27.10 [facility] Comment on above: Result Comment: The 95% CI (Confidence Interval) PPV (Positive Predictive Value) for myocardial infarction in females is 38 pg/mL, in males 51 pg/mL. The results should be used in conjunction with clinical conditions of myocardial infarction. (Access High Sensitivity Troponin I Instructions For Use, Serious [place], March 2018) Performed By: #### 2 801426, [id number] #### [facility] Laboratory [address] [place] [address] UA With Cult Reflexon 2020 Bacteria LM Ql (Urine sed) TRACE Normal Trace [facility] Comment on above: Performed By: #### 2 450292, [id number] #### [facility] Laboratory [address] [place] [address] Bilirubin Ql (U) Negative Normal Negative [facility] Comment on above: Performed By: #### 2 723398, [id number] #### [facility] Laboratory [address] [place] [address] Clarity (U) SL CLOUDY Invalid Interpretation Code [facility] Comment on above: Performed By: #### 2 541870, [id number] #### [facility] Laboratory [address] [place] [address] Color (U) YELLOW Normal Yellow [facility] Comment on above: Performed By: #### 2 817975, 41900591 #### [facility] Laboratory [address] [place] [address] Epithelial cells.squamous LM.HPF (Urine sed) [#/Area] 0-2 Normal 0-2 [facility] Comment on above: Performed By: #### 2 705385, 60857429 #### [facility] Laboratory [address] [place] [address] Glucose Test strip (U) [Mass/Vol] Negative Normal Negative [facility] Comment on above: Performed By: #### 2 853112, 16840164 #### [facility] Laboratory [address] [place] [address] Hemoglobin Ql (U) TRACE Abnormal Negative [facility] Comment on above: Performed By: #### 2 155506, [id number] #### [facility] Laboratory [address] [place] [address] Ketones (U) [Mass/Vol] Negative Normal Negative [facility] Comment on above: Performed By: #### 2 539815, 37917842 #### [facility] Laboratory [address] [place] [address] Hallwood.plasma/Lithiu m.RBC (Bld) [Mass ratio] 0-3 Normal 0-3 [facility] Comment on above: Performed By: #### 2 022963, 80182861 #### [facility] Laboratory [address] [place] [address] Mucus Ql (Urine sed) 1+ Normal [facility] Comment on above: Performed By: #### 2 733195, 50312149 #### [facility] Laboratory [address] [place] [address] Nitrite Ql (U) Negative Normal Negative [facility] Comment on above: Performed By: #### 2 877624, 90073615 #### [facility] Laboratory [address] [place] [address] pH (U) 6.5 [pH] Invalid Interpretation Code 5.0-9.0 [facility] Comment on above: Performed By: #### 2 559565, 78835832 #### [facility] Laboratory [address] [place] [address] Protein (U) [Mass/Vol] Negative Normal Negative [facility] Comment on above: Performed By: #### 2 955066, 02311481 #### [facility] Laboratory [address] [place] [id number] Specific gravity (U) [Rel density] 1.020 Invalid Interpretation Code 1.005-1.030 [facility] Comment on above: Performed By: #### 2 772921, 38046932 #### [facility] Laboratory [address] [place] [id number] Type of Urine collection method Clean Catch Normal [facility] Comment on above: Performed By: #### 2 474178, 28248835 #### [facility] Laboratory [address] [place] [id number] Urobilinogen Qn (U) 0.2 {Raji'U}/dL Normal 0.0-1.0 [facility] Comment on above: Performed By: #### 2 278268, 54559008 #### [facility] [address] [place] [address] WBC Auto Ql (U) Negative Normal Negative [facility] Comment on above: Performed By: #### 2 031604, 30191436 #### [facility] Laboratory [address] [place] [id number] WBC LM.HPF (Urine sed) [#/Area] 0-5 Normal 0-5 [facility] Comment on above: Performed By: #### 2 846038, 96781173 #### [facility] Laboratory [address] [place] [address] XR Chest Single Viewon 04-20 XR Chest [...] Allan Childers M.D. Transcribed by: ARBEN Technologist: MAYE, Noemy [facility] eGFRon 04-20-2021 GFR/1.73 sq M.predicted among blacks MDRD (S/P/Bld) [Vol rate/Area] mL/min/{1.73_m2} Normal >=59 [facility] Comment on above: Order Comment: Order added by Discern Expert. Result Comment: eGFR is race adjusted. AA=. Performed By: #### 2 806464, 87602159 #### [facility] Laboratory [address] [place] [address] GFR/1.73 sq M.predicted among non-blacks MDRD (S/P/Bld) [Vol rate/Area] mL/min/{1.73_m2} Normal >=59 [facility] Comment on above: Order Comment: Order added by Discern Expert. Result Comment: [employer] brady kidney disease could be indicated at eGFR's of less than 60 mL/min/1.73m2. Kidney failure is indicated at less than 15 mL/min/1.73m2. Performed By: #### 2 514177, [id number] #### [facility] Laboratory [address] [place] [address] Auto Diffon 04-19-2021 Basophils/100 WBC (Bld) 0.8 % Normal 0.0-2.0 [facility] Comment on above: Order Comment: Order Added by Discern Expert. Performed By: #### 2 213182, 0616152, 9140538, 44914559, 88184329, 75023932, 89763278 ####[facility] [address] [place] [address] Basophils/Leukocytes Auto (Bld) [Pure # fraction] 0.0 E9/L Normal 0.0-0.2 [facility] Comment on above: Order Comment: Order Added by Discern Expert. Performed By: #### 2 103662, 6320446, 2629406, 91737285, 91583083, 24623695, 76349056 ####[facility] [address] [place] [address] Eosinophils/100 WBC (Bld) 1.2 % Normal 0.0-8.0 [facility] Comment on above: Order Comment: Order Added by Discern Expert. Performed By: #### 2 548747, 2436551, 4983429, 76031337, 79261080, 95805619, 63746479 ####[address] [address] Eosinophils/Leukocyte s Auto (Bld) [Pure # fraction] 0.1 E9/L Normal 0.0-0.5 [facility] Comment on above: Order Comment: Order Added by Discern Expert. Performed By: #### 2 522861, 8122051, 8099731, 38557625, 87835500, 30408263, 67024626 ####[address] [address] Lymphocytes/100 WBC (Bld) 23.5 % Normal 14.0-50.0 [facility] Comment on above: Order Comment: Order Added by Discern Expert. Performed By: #### 2 175251, 8877660, 4705691, 44283662, 75180257, 10000980, 75206717 ####[place] [address] [place] [address] Lymphocytes/Leukocyte s Auto (Bld) [Pure # fraction] 1.0 E9/L Normal 1.0-4.0 [facility] Comment on above: Order Comment: Order Added by Tamy Expert. Performed By: #### 2 211244, 6818119, 6170545, 18473117, 97731646, 71211468, 83229257 ####[address] [address] Monocytes/100 WBC (Bld) 8.8 % Normal 4.0-14.0 [facility] Comment on above: Order Comment: Order Added by Discern Expert. Performed By: #### 2 072226, 7743146, 5905992, 90509353, 75413398, 66132917, 23747479 ####[facility] [address] [place] [address] Monocytes/Leukocytes Auto (Bld) [Pure # fraction] 0.4 E9/L Normal 0.2-1.0 [facility] Comment on above: Order Comment: Order Added by Discern Expert. Performed By: #### 2 942774, 5769394, 6902502, 61394775, 30664515, 98600530, 05582927 ####[address] [address] Neutrophils/100 WBC (Bld) 65.7 % Normal 36.0-75.0 [facility] Comment on above: Order Comment: Order Added by Discern Expert. Performed By: #### 2 183132, 2456528, 7605212, 26821873, 31712162, 72025191, 65343431 ####[place] [address] [place] [address] Neutrophils/Leukocyte s Auto (Bld) [Pure # fraction] 2.9 E9/L Normal 2.0-7.5 [facility] Comment on above: Order Comment: Order Added by Discern Expert. Performed By: #### 2 418029, 2343381, 1460652, 71122543, 61025194, 21512798, 24039135 ####[facility] [address] [place] [address] BMPon 04-19-2021 Creatinine [Mass/Vol] 0.9 mg/dL Normal 0.5-1.3 [facility] Comment on above: Performed By: #### 2 090345, 1946839, 8352099, 95874756, 22354460, 24374879, 01011871 ####[address] [place] [address] Urea nitrogen [Mass/Vol] 18 mg/dL Normal 5-21 [facility] Comment on above: Performed By: #### 2 745904, 6867422, 9826256, 90180148, 29380768, 63124110, 52279733 ####[facility] [address] [place] [address] Urea nitrogen/Creatinine [Mass ratio] 20 No Units Normal 10-20 [facility] Comment on above: Performed By: #### 2 654571, 2040109, 4294092, 16097811, 34627493, 34358046, 52335409 ####[facility] [address] [place] [address] Anion gap [Moles/Vol] 12 mmol/L Normal 6-16 [facility] Comment on above: Performed By: #### 2 026935, 8286314, 9237775, 29944945, 50019768, 74422217, 84668391 ####[facility] [address] [place] [address] Calcium [Mass/Vol] 9.2 mg/dL Normal 8.9-11.1 [facility] Comment on above: Performed By: #### 2 796403, 6579726, 8842542, 42464991, 54443717, 29536786, 44875765 ####[facility] [address] [place] [address] Chloride [Moles/Vol] 102 mmol/L Normal 101-111 [facility] Comment on above: Performed By: #### 2 895641, 2194320, 1621601, 20517314, 94871286, 69097467, 36734015 ####[facility] [address] [place] [address] CO2 [Moles/Vol] 27 mmol/L Normal 21-31 [facility] Comment on above: Performed By: #### 2 354530, 9600415, 5341328, 83491989, 51489914, 72937466, 52119915 ####[facility] [address] [place] [address] Glucose [Mass/Vol] 115 mg/dL Normal 55-199 [facility] Comment on above: Result Comment: If t his glucose result represents a fasting glucose, interpretation should refer to the following reference range: 55-99 mg/dL Performed By: #### 2 793141, 8309576, 1509778, 42021733, 14266746, 54251725, 71841728 ####[facility] [address] [place] [address] Potassium [Moles/Vol] 3.4 mmol/L Low 3.5-5.3 [facility] Comment on above: Performed By: #### 2 707267, 6475261, 4184752, 78022000, 43904333, 54575067, 54420981 ####[facility] [address] [place] [address] Sodium [Moles/Vol] 138 mmol/L Normal 135-145 [facility] Comment on above: Performed By: #### 2 393514, 1705081, 9262430, 21715887, 92912635, 80586506, 99806855 ####[facility] [address] [place] [address] BNPon 04-19-2021 Natriuretic peptide B (Bld) [Mass/Vol] 76 pg/mL Normal 5-80 [facility] Comment on above: Performed By: #### 2 598557, 4997934, 7154727, 42535767, 13921874, 26725043, 83475048 ####[facility] [address] [place] [address] CBC w/ Auto Diffon Erythrocyte distribution width (RBC) [Ratio] 13.1 % Normal 10.9-14.2 [facility] Comment on above: Performed By: #### 2 043147, 7761361, 9754089, 83944470, 76158059, 49744170, 42975528 ####[facility] [address] [place] [address] Hematocrit (Bld) [Volume fraction] 36.6 % Normal 34.0-46.0 [facility] Comment on above: Performed By: #### 2 529288, 2458812, 5592304, 23348984, 99095748, 86870882, 49047936 ####[address] [place] [address] Hemoglobin (Bld) [Mass/Vol] 12.5 g/dL Normal 12.0-16.0 [facility] Comment on above: Performed By: #### 2 794070, 8415669, 1307337, 38511616, 95513895, 37301115, 09864329 ####[address] [address] MCH (RBC) [Entitic mass] 33.0 pg Normal 27.0-34.0 [facility] Comment on above: Performed By: #### 2 221326, 5540618, 8542813, 56617173, 29415129, 09878567, 19588181 ####[address] [address] MCHC (RBC) [Mass/Vol] 34.0 g/dL Normal 31.4-36.0 [facility] Comment on above: Performed By: #### 2 165290, 8207699, 7735906, 69630916, 06721505, 81820848, 14339511 ####[address] [address] MCV (RBC) [Entitic vol] 97.2 fL Normal 80.0-100.0 [facility] Comment on above: Performed By: #### 2 077272, 9865510, 0588648, 45450020, 18229057, 95079241, 13462081 ####[address] [address] Platelet mean volume (Bld) [Entitic vol] 9.5 fL Normal 6.4-10.8 [facility] Comment on above: Performed By: #### 2 849618, 3069049, 9653533, 59844914, 97407825, 94784951, 95782891 ####[facility] [address] [place] [address] Platelets (Bld) [#/Vol] 277.0 E9/L Normal 150.0-500.0 [facility] Comment on above: Performed By: #### 2 085066, 0542693, 0684879, 66803759, 79731880, 33014653, 87672206 ####[facility] [address] [place] [address] RBC (Bld) [#/Vol] 3.8 E12/L Low 4.3-5.9 [facility] Comment on above: Performed By: #### 2 978593, 0098092, 0817849, 83920247, 40875873, 08045313, 19641364 ####[facility] [address] [place] [address] WBC corrected for nucl RBC Auto (Bld) [#/Vol] 4.4 E9/L Normal 4.0-11.0 [facility] Comment on above: Performed By: #### 2 772279, 6855955, 0923623, 71537442, 92753851, 11904859, 74289509 ####[facility] [address] [place] [address] Consent for Treatmenton 03-23 Consent for Treatment [id number] 0B#1.00CD:127 Normal [facility] ED Clinical Summaryon 2020 ED Clinical Summary [address] [address] ED Clinical Summary Person Information Name: LOLA ANDINO [place] Age: 80 Years : 1940 Sex: Female Language: Ecuadorean PCP: LG OVIEDO DO Marital Status: Unknown Visit Id: Visit Reason: Shortness of breath; Chest pain; CHEST PAIN Speciality: Acuity: 2 Enc Type: Emergency Med Service: Emergency Arrival: 04/19/2021 14:36:15 Discharge: LOS: 000 04:12 Checkin: 04/19/2021 14:36:15 Checkout: 04/19/2021 18:48:10 Dispo Type: Admitted as IP to this [facility] EVENTS: Event Name Event [...] 04/19/2021 18:48:10 04/19/2021 18:48:10 04/19/2021 18:48:10 ADDRESS: [address] [place] [id number] [facility] DOC NOTES: MEDICAL INFORMATION: Prescriptions Given: PATIENT EDUCATION INFORMATION: Instructions: Follow up: DIAGNOSIS: 1:Chest pain; 2:Hypertension Normal [facility] ED Note-Physicianon 04-19-20 ED Note-Physician Basic Information Time Seen: Bailee Pierson PA-C 04/19/2021 14:54 Chief Complaint pt reports left [...] was treated and evaluated by the Physician General Ledger Bookkeeper. The attending physician was in the Emergency [...] 14:59:00) Lymph Auto: 23.5 % (04/19/21 14:59:00) [place] Auto: 8.8 % (04/19/21 14:59:00) Eos Auto: 1.2 % (04/19/21 14:59:00) Basophil Auto: 0.8 % (04/19/21 14:59:00) Neutro Absolute: 2.9 E9/L (04/19/21 14:59:00) Lymph Absolute: 1 E9/L (04/19/21 14:59:00) [place] Absolute: 0.4 E9/L (04/19/21 14:59:00) Eos Absolute: 0.1 E9/L (04/19/21 14:59:00) Basophil Abs (more content not included)... Normal [facility] Comment on above: Result Comment: Elec tronically Signed By: Bailee Pierson PA-C\.br\Date and Time Signed: 04/19/21 18:49 EDT\.br\Electronically Co-Signed By: Flynn Mittal DO\.br\Date and Time Co-Signed: 04/19/21 20:39 EDT ED Patient Education Noteon 04-19-2021 ED Patient Education Note Normal [facility] ED Patient Summaryon ED Patient Summary [place] [id number] Patient Discharge Instructions Person Information Name: LOLA ANDINO Age: 80 Years Arrival Date: 04/19/2021 14:36:15 Discharge Diagnosis: 1:Chest pain; 2:Hypertension Primary Care Physician: LG OVIEDO DO Provider Information Primary Provider: Flynn Mittal DO [employer]:Bailee Pierson PA-C The exam and treatment you received in the Emergency Department were for an urgent problem and are not intended as complete care. It is important that you follow up with a doctor, nurse practitioner, or physician?s addictions counselor assistant for ongoing care. If your symptoms [...] opioids can be used to help relieve rqxxsbty-ft-yxtihm pain and are often prescribed following a [...] be struggling with addiction, tell your health healthcare advisory services manager and ask for guidance or call [facility] National Helpline at 3-371-492-ZDDT. j Source: [place] Department of Health and Human Services/Center for Disease Control & Prevention [facility] Medications Given: Medication (more content not included)... Normal [facility] PT & PTTon 04-19-2021 aPTT Coag (PPP) [Time] 34.2 second(s) Normal 25.1-36.5 [facility] Comment on above: Result Comment: Hepa rin therapeutic range (represented by Anti-Factor Xa activity of 0.2 - 0.4 U/mL) corresponds to PTT of 56.6 - 109.0 sec. Performed By: #### 2 [id number], [id number] #### [facility] Laboratory [address] [place] [address] INR Coag (PPP) [Relative time] 1.0 {INR} Invalid Interpretation Code [facility] Comment on above: Result Comment: INR results are specifically intended to assess patients stabilized on long-term Anticoagulation therapy suggested INR?s ?Less Intensive Anticoagulation? 2.0 ? 3.0 Conventional Range 3.0 ? 4.5 Performed By: #### 2 [id number], [id number] #### [facility] Laboratory [address] [place] [address] PT Coag (PPP) [Time] 11.7 second(s) Normal 10.2-12.9 [facility] Comment on above: Performed By: #### 2 [id number], [id number] #### [facility] [address] [place] [address] Troponin 0 Hr.on 04-19-2021 Troponin I.cardiac [Mass/Vol] 4.00 pg/mL Low 10.10-27.10 [facility] Comment on above: Result Comment: The 95% CI (Confidence Interval) PPV (Positive Predictive Value) for myocardial infarction in females is 38 pg/mL, in males 51 pg/mL. The results should be used in conjunction with clinical conditions of myocardial infarction. (Access High Sensitivity Troponin I Instructions For Use, [employer] [place], March 2018) Performed By: #### 2 [id number], [id number] #### [facility] [address] [place] [address] Troponin 3 Hr.on 04-19-2021 Troponin I.cardiac [Mass/Vol] 24.40 pg/mL Normal 10.10-27.10 [facility] Comment on above: Result Comment: The 95% CI (Confidence Interval) PPV (Positive Predictive Value) for myocardial infarction in females is 38 pg/mL, in males 51 pg/mL. The results should be used in conjunction with clinical conditions of myocardial infarction. ([employer] High Sensitivity Troponin I Instructions For Use, [employer] [place], March 2018) Performed By: #### 2 [id number], [id number] #### [facility] [address] [place] [address] Troponin 6 Hr.on 04-19-2021 Troponin I.cardiac [Mass/Vol] 21.50 pg/mL Normal 10.10-27.10 [facility] Comment on above: Result Comment: The 95% CI (Confidence Interval) PPV (Positive Predictive Value) for myocardial infarction in females is 38 pg/mL, in males 51 pg/mL. The results should be used in conjunction with clinical conditions of myocardial infarction. ([employer] High Sensitivity Troponin I Instructions For Use, [place], March 2018) Performed By: #### 2 [id number], [id number] #### [facility] [address] [place] [address] eGFRon 04-19-2021 GFR/1.73 sq M.predicted among blacks MDRD (S/P/Bld) [Vol rate/Area] mL/min/{1.73_m2} Normal >=59 [facility] Comment on above: Order Comment: Order added by Discern Expert. Result Comment: eGFR is race adjusted. AA=. Performed By: #### 2 [id number] ####[facility] [address] [place] [address] GFR/1.73 sq M.predicted among non-blacks MDRD (S/P/Bld) [Vol rate/Area] 60 mL/min/1.73 m2 Normal >=59 [facility] Comment on above: Order Comment: Order added by Discern Expert. Result Comment: [employer] brady kidney disease could be indicated at eGFR's of less than 60 mL/min/1.73m2. Kidney failure is indicated at less than 15 mL/min/1.73m2. Performed By: #### 2 [id number], [id number], [id number] ####[facility] [address] [place] [address] Vital Signs Date Time Vital Sign Value Performing Clinician Facility 03-22-2024 10:54-0400 Body height 153.67 cm [facility] 03-22-2024 10:54-0400 Body mass index (BMI) [Ratio] 27.6 kg/m2 [facility] 03-22-2024 10:54-040 Body weight 65.37 kg [facility] 03-22-2024 10:54-0400 Diastolic blood pressure 89 mm[Hg] [facility] 03-22-2024 10:54-0400 Heart rate 71 /min [facility] 03-22-2024 10:54-0400 Respiratory rate 12 /min [facility] 03-22-2024 10:54-0400 Systolic blood pressure 139 mm[Hg] [facility] 02-28-2024 10:32-0400 Body height 153.67 cm [facility] 02-28-2024 10:32-0400 Body mass index (BMI) [Ratio] 27.7 kg/m2 [facility] 02-28-2024 10:32-0400 Body weight 65.48 kg [facility] 02-28-2024 10:32-0400 Diastolic blood pressure 71 mm[Hg] [facility] 02-28-2024 10:32-0400 Heart rate 82 /min [facility] 02-28-2024 10:32-0400 Respiratory rate 12 /min [facility] 02-28-2024 10:32-0400 Systolic blood pressure 180 mm[Hg] [facility] 12-22-2023 11:18-0400 Body height 153.67 cm [facility] 12-22-2023 11:18-0400 Body mass index (BMI) [Ratio] 28.6 kg/m2 [facility] 12-22-2023 11:18-0400 Body temperature 98.4 [degF] [facility] 12-22-2023 11:18-0400 Body weight 67.58 kg [facility] 12-22-2023 11:18-0400 Diastolic blood pressure 82 mm[Hg] [facility] 12-22-2023 11:18-0400 Heart rate 95 /min [facility] 12-22-2023 11:18-0400 SaO2% (BldA) [Mass fraction] 97 % [facility] 12-22-2023 11:18-0400 Systolic blood pressure 156 mm[Hg] [facility] 11-09-2023 14:06-0400 Body height 153.67 cm [facility] 11-09-2023 14:06-0400 Body mass index (BMI) [Ratio] 29.6 kg/m2 [facility] 11-09-2023 14:06-0400 Body weight 69.9 kg [facility] 11-09-2023 14:06-0400 Diastolic blood pressure 94 mm[Hg] [facility] 11-09-2023 14:06-0400 Heart rate 90 /min [facility] 11-09-2023 14:06-0400 Respiratory rate 12 /min [facility] 11-09-2023 14:06-0400 Systolic blood pressure 168 mm[Hg] [facility] 05-10-2023 09:00-0400 Body height 160.02 cm Lg [facility] Other [facility] Other 05-10-2023 09:00-0400 Body mass index (BMI) [Ratio] 26.6 kg/m2 Lg [facility] Other [facility] Other 05-10-2023 09:00-0400 Body weight 68.13 kg Lg Ball Other [employer] [facility] Other 05-10-2023 09:00-0400 Diastolic blood pressure 78 mm[Hg] Lg Ball Other [facility] Other 05-10-2023 09:00-0400 Respiratory rate 12 /min Lg Ball Other [facility] Other 05-10-2023 09:00-0400 Systolic blood pressure 185 mm[Hg] L[facility] Ball Other [facility] Other 03-25-2023 13:30-0400 Body height 160.02 cm Lg Ball Other [facility] Other 03-25-2023 13:30-0400 Body mass index (BMI) [Ratio] 25.58 kg/m2 Lg Ball Other [facility] Other 03-25-2023 13:30-0400 Body weight 65.5 kg Lg Oviedo Other [facility] Other 03-25-2023 13:30-0400 Diastolic blood pressure 78 mm[Hg] Lg [facility] Other [facility] Other 03-25-2023 13:30-0400 Respiratory rate 12 /min Lg O[facility] Other [facility] Other 03-25-2023 13:30-0400 Systolic blood pressure 187 mm[Hg] Lg Oviedo Other [facility] Other Encounters Encounter Date Encounter Type Care Provider Facility Start: 03-22-2024 End: 03-22-2024 [facility] Work Phone: Start: 03-22-2024 End: 03-22-2024 Patient encounter procedure [facility] Physician [facility] Work Phone: Start: 02-29-2024 Non-patient / Non-visit [facility] Physician [facility] Work Phone: Start: 02-28-2024 End: 02-28-2024 ambulatory [facility] Work Phone: Start: 02-28-2024 End: 02-28-2024 Patient encounter procedure [facility] Physician [facility] Work Phone: Start: 12-28-2023 End: 12-28-2023 ambulatory [facility] Work Phone: Start: 12-28-2023 End: 12-28-2023 Patient encounter procedure [facility] Physician [facility] Work Phone: Start: 12-22-2023 End: 12-22-2023 Patient encounter procedure [facility] Physician [facility] Work Phone: Start: 11-09-2023 End: 11-09-2023 ambulatory [facility] Work Phone: Start: 11-09-2023 End: 11-09-2023 Patient encounter procedure [facility] Work Phone: Start: 10-24-2023 Non-patient / Non-visit [facility] Physician Group-Telephone [employer] Work Phone: Start: 10-14-2023 End: 10-14-2023 ambulatory [facility] Work Phone: Start: 10-14-2023 End: 10-14-2023 Patient encounter procedure [facility] Physician [facility] Work Phone: Start: 08-23-2023 End: 08-23-2023 ambulatory LORI H TIMMIS Not Available Start: 07-20-2023 End: 07-20-2023 ambulatory LORI H TIMMIS Not Available Start: 06-17-2023 End: 06-17-2023 ambulatory Lg Oviedo Other [facility] Other Start: 06-17-2023 Nursing evaluation o f patient and report Lg Ov[facility]o [facility] Start: 05-19-2023 End: 05-19-2023 ambulatory Lg Oviedo Other [facility] Other Start: 05-19-2023 Telephone encounter Lg O[facility]iedo [facility] Start: 05-17-2023 End: 05-17-2023 ambulatory Lg Oviedo Other [facility] Other Start: 05-17-2023 Telephone encounter Lg O[facility]iedo [facility] Start: 05-12-2023 End: 05-12-2023 ambulatory Lg Oviedo Other [facility] Other Start: 05-12-2023 Telephone encounter Lg [facility]o [facility] Start: 05-10-2023 End: 05-10-2023 ambulatory Lg Oviedo Other [facility] Other Start: 05-10-2023 Patient encounter procedure Lg Oviedo [facility] Start: 04-18-2023 End: 04-18-2023 ambulatory Lg Oviedo Other [facility] Other Start: 04-18-2023 Telephone encounter Lg Oviedo [facility] Start: 04-07-2023 End: 04-07-2023 ambulatory Lg Oviedo Other [facility] Other Start: 04-07-2023 Telephone encounter Lg Oviedo [facility] Start: 04-05-2023 End: 04-05-2023 ambulatory Lg Oviedo Other [facility] Other Start: 04-05-2023 Telephone encounter Lg Oviedo [facility] Start: 04-01-2023 End: 04-01-2023 ambulatory Lg Oviedo Other [facility] Other Start: 04-01-2023 Telephone encounter Lg Oviedo [facility] Start: 03-25-2023 End: 03-25-2023 ambulatory Lg Oviedo Other [facility] Other Start: 03-25-2023 Office outpatient vi sit 15 minutes Lg Oviedo [facility] Start: 08-10-2022 End: 08-11-[address] LG OVIEDO Facility:[facility]1 Start: 05-06-2022 End: 05-07-[address] LG OVIEDO Facility:[facility] Start: 04-06-2022 End: 04-07-[address] LG OVIEDO Facility:[facility] Start: 01-06-2022 End: 01-07-[address] LG OVIEDO Facility:[facility]1 Plan of Treatment Date Care Activity Detail Author Comprehensive metabo lic 2000 panel - Serum or Plasma [facility] enter XR Chest 2 Views [facility] XR Knee - left 4 Views [facility] Immunizations Immunization Date Immunization Notes Care Provider Fa cility 04-17-2020 pneumococcal polysaccharide vaccine, 23 valent Lg Oviedo Other [facility] 11-28-2017 diphtheria, tetanus toxoids and acellular pertussis vaccine, unspecified formulation Lg Oviedo Other [facility] 10-25-2016 tetanus and diphther ia toxoids, adsorbed, preservative free, for adult use (5 Lf of tetanus toxoid and 2 Lf of diphtheria toxoid) [facility] 10-25-2016 tetanus toxoid, redu tammy diphtheria toxoid, and acellular pertussis vaccine, adsorbed Lg Oviedo Other [facility] Other Payers Date Payer Category Payer Medicare [id number] 2. [id number] 1960 Medicare [id number] 1940 Unknown [id number] 2.16.84 [id number] 1940 Unknown [id number] 2.16.84 [id number] 1940 Unknown [id number] 2.16.84 [id number] 1940 Unknown [id number] 2.16.84 [id number] 1940 Unknown [id number] 1940 Unknown [id number] [id number] Medicare Medicare Outpatient [id number] Unknown [id number] 2.1 [id number] Unknown [facility] Health Claims [id number] Social History Date Type Detail Facility Sex Assigned At [facility] Other Start: 1940 Sex Assigned At Female F [facility] Start: 12-22-2023 Tobacco smoking stat us NHIS Never smoked tobacco (finding) [facility] Clinical Notes 11-28-2017 to 06-17-2023 Note Date & Type Note Facility 06-17-2023 Evaluation note Encounter Date Diagnosis Assessment Notes May, Dysuria (ICD-10 - R30.0) [facility] Other 09-26-2023 Evaluation note* Encounter Date Diagnosis Assessment Notes Treatment Notes Treatment Clinical Notes Apr, Pulmonary nodule (ICD-10 - R91.1) CXR 6mm - 04/2021, CT small nodules - 04/2022 CT small nodules, stable - 04/2023 [facility] Other 09-19-2023 Evaluation note* Encounter Date Diagnosis [...] medication use (ICD-10 - Z79.899) Check labs [facility] Other 08-15-2023 Evaluation note* Encounter Date Diagnosis Assessment Notes Treatment Notes Treatment Clinical Notes Mar, Dizziness (ICD-10 - R42) [facility] Other 08-11-2023 Evaluation note* Encounter Date Diagnosis Assessment Notes Treatment Notes Treatment Clinical Notes Mar, Claustrophobia (ICD-10 - F40.240) [facility] Other 08-04-2023 Evaluation note* Encounter Date Diagnosis [...] related to other complaints or separate problem [facility] Other 07-22-2022 Note From: Genesis Denny To: HV - Administrative; Sent: 05/20/2021 08:15:18 EDT Show up: 12/18/2021 08:15:00 EDT Subject: 8 month follow up Due Date/Time: 01/17/2022 08:15:00 EDT Reminder/Recall 8 month follow up with Dr. Jacques (December) tried calling twice and patient hung up on my both times after i said hello. [facility]09-29-2021 Note From: Genesis Denny To: HV - Administrative; Sent: 05/20/2021 08:14:37 EDT Show up: 08/19/2021 07:14:00 EST Subject: 4 month follow up Due Date/Time: 09/19/2021 07:14:00 EST Reminder/Recall 4 month follow up with Haley (2021)[facility]08[facility] NoteAdmission Information Admitting Physician - MARLEN SINHA, Pola Consulting Physician - Kip SINHA, Tristan Ashley Admitting Diagnoses: 1. Chest pain, unspecified, 04/20/2021 2. Essential (primary) hypertension, 04/20/2021 3. Encounter for prophylactic measures, unspecified, 04/20/2021 Hospital Course Pt is a 80 F admitted with complaints of chest pain. pt was ruled out for ACS with negative cardiacenzymes, no EKG changes. Pt was seen by [facility] cardiology, recommended outpatient stress test and started on lisinopril 5 mg po q day for uncontrolled HTN. pt with some complaints of dysuria, negative UA, if persists to follow up with urology outpatient. Pt discharged home in improved condition to follow up with PCP and [facility] cardiology outpatient. d/w patient and daughter at [...] 14:59:00) Lymph Auto: 23.5 % (04/19/21 14:59:00) [place] Auto: 8.8 % (04/19/21 14:59:00) Eos Auto: 1.2 % (04/19/21 14:59:00) Basophil Auto: 0.8 % (04/19/21 14:59:00) Neutro Absolute: 2.9 E9/L (04/19/21 14:59:00) Lymph Absolute: 1 E9/L (04/19/21 14:59:00) [place] Absolute: 0.4 E9/L (04/19/21 14:59:00) Eos Absolute: [...] aspirin 81 mg O (more content not included)...[facility]Result Comment: Electronically Signed By: ÁNGELA SINHA, Patrick\.br\Date and Time Signed: 04/20/21 13:09 [id number] NoteChief Complaint Sharp pains in chest weakness [...] 14:59:00) Lymph Auto: 23.5 % (04/19/21 14:59:00) [place] Auto: 8.8 % (04/19/21 14:59:00) Eos Auto: 1.2 % (04/19/21 14:59:00) Basophil Auto: 0.8 % (04/19/21 14:59:00) Neutro Absolute: 2.9 E9/L (04/19/21 14:59:00) Lymph Absolute: 1 E9/L (04/19/21 14:59:00) [place] Absolute: 0.4 E9/L (04/19/21 14:59:00) Eos Absolute: [...] = 1 tab(s), Tab-Chew, (more content not included)...[facility]:Result Comment: Electronically Signed By: Susanne SINHA, Andre\.br\Date and Time Signed: 04/19/21 21:01 [id number] History general Narrative - Reported* Type Description Date Medical History Bronchiectasis without complicat ion Medical History Essential hypertension Medical History Elevated cholesterol Surgical History BTL 11/28/2017 Hospitalization History see surgical history [facility] Other 04-09-2018 History general Narrative - Reported* Type Description Date Medical History Bronchiectasis without complicat ion Medical History Essential hypertension Medical History Elevated cholesterol Medical History BRVO left eye Surgical History BTL 11/28/2017 Hospitalization History see surgical history [facility] Other Evaluation noteNo InformationNort [employer] Other evaluation noteNo assessment information available [facility] Work Phone: evaluation note* Diagnosis Onset Date Resolution Status Bronchiectasis acute Hypertension acute Pulmonary nodule acute Suspected sleep apnea acute Fatigue noneactive [facility] Work Phone: evaluation note* Diagnosis Onset Date Resolution Status Bronchiectasis acute Hypertension acute Pulmonary nodule acute Suspected sleep apnea acute Fatigue noneactive Hypertension acute Left knee pain acute Acute bronchitis due to other specified organisms noneactive [facility] Work Phone: Evaluation note* Diagnosis Onset Date Resolution Status Hypertension acute Left knee pain acute Acute bronchitis due to other specified organisms noneactive Anemia acute Bronchiectasis acute Chronic venous insufficiency of lower extremity acute Hypertension acute [facility] Work Phone: Evaluation note* Diagnosis Onset Date Resolution Status Anemia acute Bronchiectasis acute Chronic venous insufficiency of lower extremity acute Hypertension acute Hypertension acute Left knee pain acute Primary osteoarthritis of knee acute 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 Clinical Notes Include MRI [facility] Other Summary Purpose Family History Relationship Condition Age at Onset Recorded Date/T jonathan Not Specified Malignant neoplasm Unknown Relationship Condition Age at Onset Recorded Date/T jonathan mother Malignant neoplasm Unknown Advance Directives Advance Directive Response Recorded Date/ Time Advance Directives No September 1:36pm Advance Directive Response Recorded Date/ Time Advance Directives No September 2:36pm Chief Complaint and Reason for Visit Chief Complaint UA-Burning, Frequenc y, Pain Chief Complaint UA-Burning, Frequenc y, Pain Amb Documentation Tiredness, Not Feeling Well Reason for Visit Bronchiectasis Hypertension Pulmonary nodule Suspected sleep apnea Fatigue Chief Complaint UA-Burning, Frequenc y, Pain Amb Documentation Tiredness, Not Feeling Well possible sinus infection UA - pain Reason for Visit Bronchiectasis Hypertension Pulmonary nodule Suspected sleep apnea Fatigue Hypertension Left knee pain Acute bronchitis due to other specified organisms Chief Complaint possible sinus infec tion UA - pain 2 month follow up Reason for Visit Hypertension Left knee pain Acute bronchitis due to other specified organisms Anemia Bronchiectasis Chronic venous insufficiency of lower extremity Hypertension Chief Complaint UA - pain 2 month follow up left knee injection Reason for Visit Anemia Bronchiectasis Chronic venous insufficiency of lower extremity Hypertension Hypertension Left knee pain Primary osteoarthritis of knee Additional Source Comments INFORMATION SOURCE (unrecogn ized section and content) DATE CREATED AUTHOR [facility] DATE CREATED AUTHOR AUTHOR'S ORGANIZ ATION 08/18/2022 [facility] DATE CREATED AUTHOR AUTHOR'S ORGANIZ ATION 08/23/2023 [facility] EPIC REASON FOR VISIT (unrecogniz ed section and content) dizzinessmedicationNo Inform ationdizzinessMRI resultsReferralWellnessNo InformationNo InformationCT/Lab ResultsUA - burning frequency Care Teams (unrecognized sec tion and content) Team Status: Active Member Role Status Dates Lg Oviedo , DO Primary Care Provider Active Team Status: Inactive Member Role Status Dates Lg Oviedo , DO Primary Care Provide r, Attending Provider Active Start: October 14, 2023 End: October 14, 2023 Team Status: Active Member Role Status Dates Lg Preet , DO Primary Care Provider Active Start: October 24, 2023 DYLON Helms Attending Provider Active Start : October 24, 2023 Team Status: Inactive Member Role Status Dates Lg Oviedo , DO Primary Care Provide r, Attending Provider Active Start: November 09, 2023 End: November 09, 2023 Team Status: Inactive Member Role Status Dates Lg Oviedo , DO Primary Care Provide r, Attending Provider Active Start: December 22, 2023 End: December 22, 2023 Team Status: Inactive Member Role Status Dates Lg Oviedo , DO Primary Care Provide r, Attending Provider Active Start: December 28, 2023 End: December 28, 2023 Team Status: Inactive Member Role Status Dates Lg Oviedo , DO Primary Care Provide r, Attending Provider Active Start: February 28, 2024 End: February 28, 2024 Team Status: Active Member Role Status Dates Lg Oviedo , DO Primary Care Provide r, Attending Provider Active Start: February 29, 2024 Team Status: Inactive Member Role Status Dates Lg Oviedo , DO Primary Care Provide r, Attending Provider Active Start: March 22, 2024 End: March 22, 2024 Goals (unrecognized section and content) Goals may [...] BE BASED ON THE PRIMARY CLINICAL RECORDS. [employer] provides no warranty or guarantee of the accuracy or completeness of information in this document.
[2024-04-27 08:15] LABS: Basophils Percent Auto 0.9 % (0.2-2.0); Eosinophils Absolute Auto 0.1 10^3/uL (0.0-0.7); Eosinophils Percent Auto 2.6 % (0.9-7.0); Hematocrit 34.6 % (36.0-48.0); Hemoglobin 11.7 g/dL (12.0-16.0); Immature Granulocytes Abs Auto 0.01 10^3/uL (0.00-0.03); Immature Granulocytes Pct Auto 0.2 % (0.0-0.5); Lymphocytes Absolute Auto 1.1 10^3/uL (1.2-3.8); Lymphocytes Percent Auto 24.5 % (20.5-60.0); Mean Corpuscular HGB Conc 33.8 g/dL (29.9-35.2); Mean Corpuscular Hemoglobin 33.1 pg (26.7-34.0); Mean Platelet Volume 10.4 fL (9.5-13.5); Monocytes Absolute Auto 0.4 10^3/uL (0.3-0.8); Monocytes Percent Auto 9.5 % (1.7-12.0); Neutrophils Absolute Auto 2.9 10^3/uL (1.4-6.5); Neutrophils Percent Auto 62.3 % (43.0-75.0); Platelet Count 289 10^3/uL (150-450); Red Blood Count 3.53 10^6/uL (4.20-5.40); Red Cell Distribution Width 12.6 % (11.0-15.0); White Blood Count 4.6 10^3/uL (4.0-11.0)
[2024-04-27 10:13] LABS: Percent Iron Saturation 36.6 %
[2024-04-28 10:09] LABS: Vitamin B12 947 pg/mL (232-1245)
== END 2024-04-27 07:36 | disposition home or self-care (01) ==
LOC: LAB 07:36
PROVIDERS: PCP Internal Medicine; Visit Provider Internal Medicine
DX: D64.9 Anemia, unspecified (principal)
CPT/HCPCS: 36415; 82607; 82728; 83540; 83550; 85025

== ENCOUNTER 2024-10-31 08:08 | Outpatient (OUT) | payer MEDICARE, SELFPAY ==
[2024-10-31 08:27] LABS: Basophils Percent Auto 0.8 % (0.2-2.0); Eosinophils Absolute Auto 0.2 10^3/uL (0.0-0.7); Eosinophils Percent Auto 3.6 % (0.9-7.0); Hematocrit 35.4 % (36.0-48.0); Hemoglobin 11.7 g/dL (12.0-16.0); Lymphocytes Absolute Auto 1.5 10^3/uL (1.2-3.8); Lymphocytes Percent Auto 30.6 % (20.5-60.0); Mean Corpuscular HGB Conc 33.1 g/dL (29.9-35.2); Mean Corpuscular Hemoglobin 32.9 pg (26.7-34.0); Mean Corpuscular Volume 99.4 fL (81.0-99.0); Mean Platelet Volume 10.8 fL (9.5-13.5); Monocytes Absolute Auto 0.4 10^3/uL (0.3-0.8); Monocytes Percent Auto 8.8 % (1.7-12.0); Neutrophils Absolute Auto 2.8 10^3/uL (1.4-6.5); Neutrophils Percent Auto 56.2 % (43.0-75.0); Platelet Count 292 10^3/uL (150-450); Red Blood Count 3.56 10^6/uL (4.20-5.40); Red Cell Distribution Width 12.2 % (11.0-15.0)
== END 2024-10-31 08:09 | disposition home or self-care (01) ==
LOC: LAB 08:09
PROVIDERS: PCP Internal Medicine; Visit Provider Internal Medicine
DX: D64.9 Anemia, unspecified (principal)
CPT/HCPCS: 36415; 85025

== ENCOUNTER 2024-12-13 09:06 | Outpatient (OUT) | payer MEDICARE, SELFPAY ==
--- NOTE | 2024-12-13 09:08 | US_ITS ---
The [address] [address] Patient Name: LOLA ANDINO MRN: [id number] date: 1940 Sex: F Assigned Patient Location: US Current Patient Location: US Accession/Order Number: [id number] Exam Date: 12/13/2024 13:17 Report Date: 12/13/2024 13:19 At the request of: HALIMA HONG DO Procedure: US abdominal aortic aneurysm Aortic ultrasound Reason for exam: Family history of aortic aneurysm. Comparison: none Technique: Grayscale, spectral and color Doppler images of the abdominal aorta were obtained. Findings: Fusiform type abdominal aortic aneurysm involving the proximal aorta measuring 3.6 cm. There is associated atherosclerotic calcification. Common iliac vessels appear normal in caliber. US/US abdominal aortic aneurysm Impression: Fusiform type abdominal aortic aneurysm measuring 3.6 cm. Impression dictated by: Abner Funez Jr., D.O.12/13/2024 1:19 PM Dictation [facility] Electronically authenticated by: [id number] Y Date: 12/13/2024 13:19
== END 2024-12-13 09:07 | disposition home or self-care (01) ==
LOC: US 09:06
PROVIDERS: PCP Internal Medicine; Visit Provider Internal Medicine
DX: I71.40 Abdominal aortic aneurysm, without rupture, unspecified (principal); Z82.49 Family history of ischemic heart disease and other diseases of the circulatory system
CPT/HCPCS: 76775

== ENCOUNTER 2025-02-06 06:47 | Outpatient (OUT) | payer MEDICARE, SELFPAY ==
--- NOTE | 2025-02-06 | US_ITS ---
The [address] [address] Patient Name: LOLA ANDINO MRN: [id number] date: 1940 Sex: F Assigned Patient Location: US Current Patient Location: US Accession/Order Number: [id number] Exam Date: 02/06/2025 08:40 Report Date: 02/06/2025 08:46 At the request of: HALIMA HONG DO Procedure: US thyroid THYROID ULTRASOUND CLINICAL DATA: Unintentional weight loss. Thyroid nodule COMPARISON: None The right thyroid lobe measures 4.5 x 1.7 x 1.3 cm. The left lobe measures 4.7 x 1.6 x 1.4 cm. The isthmus measures 1 mm. Thyroid echotexture is heterogeneous and there is also hyperemia. At the inferior pole on the right superficially, there is a mixed echogenicity nodule with tiny echogenic foci. Calcifications are not excluded (TI-RADS 4). It measures 6 x 3 x 5 mm . On the left at the superior pole, there is a subtle heterogeneously hypoechoic nodule measuring 11 x 6 x 8 mm (TI-RADS 2). US/US thyroid IMPRESSION: HETEROGENEOUS HYPEREMIC THYROID. THIS COULD BE THYROIDITIS. SMALL THYROID NODULES, DESCRIBED. ANNUAL FOLLOW-UP IS SUGGESTED. Impression dictated by: Laisha Ferrer M.D. 02/06/2025 8:46 AM Dictation Location: [place] [address] Electronically authenticated by: [id number] Y Date: 02/06/2025 08:46
--- NOTE | 2025-02-06 | US_ITS ---
The [address] [address] Patient Name: LOLA ANDINO MRN: [id number] date: 1940 Sex: F Assigned Patient Location: US Current Patient Location: US Accession/Order Number: [id number] Exam Date: 02/06/2025 08:38 Report Date: 02/06/2025 08:40 At the request of: HALIMA HONG DO Procedure: US right upper quadrant LIMITED UPPER QUADRANT ABDOMINAL ULTRASOUND CLINICAL HISTORY: Unintended weight loss, epigastric pain COMPARISON: None The gallbladder is partially contracted without shadowing calculi, wall thickening or pericholecystic fluid. No intra- or extrahepatic biliary dilatation is evident. The common duct measures 3 - 4 mm. The liver is normal in echogenicity. No intrahepatic masses are seen. There is appropriate hepatopetal flow within the main portal vein. The pancreas shows no significant sonographic abnormality. Cursory evaluation of the right kidney reveals no hydronephrosis or fluid within Holland's pouch. US/US right upper quadrant IMPRESSION: NEGATIVE ULTRASOUND OF THE RIGHT UPPER QUADRANT. Impression dictated by: Laisha Ferrer M.D. 02/06/2025 8:40 AM Dictation Location: [place] [address] Electronically authenticated by: [id number] Y Date: 02/06/2025 08:40
--- OUTSIDE RECORDS SUMMARY | 2025-02-06 06:50 | XMS_ITS | CCD ---
Author Organization [facility] Care Team Providers Care Journeyman Welder Name Role Phone PREET, DR CASTANON Admitting Unavailable BALL, DR CASTANON Attending Unavailable BALL, DR CASTANON Primary Care Unavailable BALL, DR CASTANON Consulting Unavailable BALL, DR CASTANON Admitting Unavailable BALL, DR CASTANON Attending Unavailable BALL, DR CASTANON Primary Care Unavailable BALL, DR CASTANON Consulting Unavailable WEST, DR MALCOM Correia Consulting Unavailable BALL, DR CASTANON Admitting Unavailable BALL, DR CASTANON Attending Unavailable BALL, DR CASTANON Primary Care Unavailable BALL, DR CASTANON Consulting Unavailable PREET, DR CASTANON Admitting Unavailable BALL, DR CASTANON Attending Unavailable BALL, DR CASTANON Primary Care Unavailable BALL, DR CASTANON Consulting Unavailable Ball, Lg Unavailable LORI GUNTER Attending Unavailable PREET, LG Bishop Referring Unavailable LORI GUNTER Attending Unavailable Allergies Allergy Classification Reported Allergen(s) Allergy Type Date of Onset Reaction(s) Facility (9 sources) Clindamycin Drug Allergy 05-12-20 Unknown Reaction [facility] Repository (12 sources) Penicillin Drug Allergy Unknown [facility] Repository (19 sources) Aspirin Drug Allergy 06-05-20 Unknown, Unknown Reaction [facility] Comment on above: Onset Date: 06/05/20 15 (19 sources) Ciprofloxacin Drug Allergy 06-26-20 Unknown, Unknown Reaction [facility] Comment on above: Onset Date: 06/26/20 15 (11 sources) Clindamycin Drug Allergy Unknown [facility] Other (19 sources) Ibuprofen Drug Allergy 06-05-20 Unknown, Unknown Reaction [facility] Comment on above: Onset Date: 06/05/20 15 (11 sources) Fluticasone Propionate *NASAL AGENTS - SYSTEMIC AN Propensity to adverse reactions 06-26-20 Unknown [facility] Other (8 sources) Penicillins Allergy to substance 05-12-20 Unknown Reaction [facility] (8 sources) Fluticasone Propionate *NASAL Allergy to substance 05-12-20 Unknown Reaction [facility] Medications Current Medications Medication Drug Class(es) Dates Sig (Normalized) Sig (Original) aspirin 81 mg delayed release oral tablet (3 sources) Platelet Aggregation Inhibitor, Nonsteroidal Anti-inflammatory Drug Start: 05-02-2024 take 1 tablet by mouth once daily Aspirin 81 mg tablet,delayed release (DR/EC) Active 81 MG PO Daily May 02, 2024 12:00am diazePAM 5 mg oral tablet (5 sources) Benzodiazepine Start: 04-01-2023 take 1 tablet by mouth every hour Valium 5 MG 1 tablet Orally Taken one time, one hour prior to MRI for 1 days Mar, Active lisinopril 10 mg oral tablet (20 sources) Angiotensin Converting Enzyme Inhibitor Start: 08-05-2024 take 1 tablet by mouth once daily Lisinopril 10 mg tablet Active 0 .ROUTE .COMPLEX August 05, 2024 10:11am TAKE 1 TABLET BY MOUTH EVERY DAY Start: 11-09-2023 End: 08-05-2024 take 1 tablet by mouth once daily Lisinopril 10 mg tablet Discontinued 10 MG PO Daily November 09, 2023 12:00am August 05, 2024 10:11am Start: 08-09-2022 take 1 tablet by brandon [...] Sig (Original) amLODIPine 5 mg oral tablet (20 sources) Dihydropyridine Calcium Channel Meena Start: 02-15-2024 End: 05-02-2024 take 1 tablet by mouth once daily Amlodipine 5 mg tablet Discontinued 0 .ROUTE .COMPLEX February 15, 2024 9:15am May 02, 2024 9:35am TAKE 1 TABLET BY MOUTH EVERY DAY FOR 30 DAYS Start: 12-22-2023 End: 02-15-2024 take 1 tablet by mouth once daily Amlodipine 5 mg tablet Discontinued 5 MG PO Daily December 22, 2023 11:23am February 15, 2024 9:15am Start: 10-24-2023 End: 12-22-2023 take 1 tablet by mouth once daily Amlodipine 5 mg tablet Discontinued 0 .ROUTE .COMPLEX October 24, 2023 2:00pm December 22, 2023 11:23am TAKE 1 TABLET BY MOUTH EVERY DAY FOR 30 DAYS Start: 10-24-2023 End: 10-24-2023 take 1 tablet by mouth once daily Amlodipine 5 mg tablet Discontinued 5 MG PO Daily October 24, 2023 1:00am October 24, 2023 2:00pm Start: 05-10-2023 take 1 tablet by brandon th every twenty-four hours amLODIPine Besylate 5 MG 1 tablet Orally Once a day for 30 days Apr, Active azithromycin 250 mg oral tablet (7 sources) Macrolide Antimicrobial Start: 12-06-2024 End: 01-28-2025 Azithromycin 250 mg tablet Discontinued 250 MG PO .COMPLEX 6 December 06, 2024 12:00am January 28, 2025 8:29am 2 tabs on first day followed by 1 tab on days 2-5 Start: 12-23-2023 End: 02-26-2024 Azithromycin 250 mg tablet D iscontinued 250 MG PO As Directed 6 December 23, 2023 12:00am February 26, 2024 7:52am doxycycline hyclate 100 mg oral capsule (13 sources) Tetracycline-class Drug Start: 11-09-2023 End: 12-23-2023 take 1 capsule by mouth twice daily Doxycycline Hyclate 100 mg capsule Discontinued 100 MG PO Twice daily 14 December 22, 2023 12:00am December 23, 2023 4:09pm nitrofurantoin, macrocrystals 25 mg / nitrofurantoin, monohydrate 75 mg oral capsule (5 sources) Nitrofuran Antibacterial Start: 12-28-2023 End: 02-26-2024 take 1 capsule by mouth twice daily at mealtime Nitrofurantoin Monohyd/M-Cryst (Macrobid) 100 mg capsule Discontinued 100 MG PO Twice daily 10 December 28, 2023 12:00am February 26, 2024 7:52am must administer with a meal/food Problems Active Problems Problem Classification Problem Date Documented Date Episodic/Chronic Acute bronchitis (3 sources) Acute bronchitis due to other specified organisms; Translations: [Acute bronchitis] 12-22-2023 Episodic Anxiety disorders (13 sources) Claustrophobia; Translations: [Claustrophobia] Chronic Aortic; peripheral; and visceral artery aneurysms (1 source) Abdominal aortic aneurysm; Translations: [Abdominal aortic aneurysm (AAA)] 12-13-2024 Chronic Comment on above: US: 3.6cm - 11/2024 Chronic obstructive pulmonary disease and bronchiectasis (20 sources) Bronchiectasis; Translations: [Bronchiectasis, uncomplicated] 11-08-2023 Chronic Conditions associated with dizziness or vertigo (3 sources) Dizziness and giddiness Episodic Deficiency and other anemia (9 sources) Anemia, unspecified; Translations: [Anemia, unspecified] Onset: 08-10-2022 Episodic Deficiency and other anemia (5 sources) Anemia; Translations: [Anemia, unspecified] 02-28-2024 Episodic Disorders of lipid metabolism (20 sources) Hypercholesterolemia; Translations: [Pure hypercholesterolemia, unspecified] Chronic Essential hypertension (20 sources) Essential (primary) hypertension; Translations: [Essential hypertension] Onset: 05-06-2022 Chronic Genitourinary symptoms and ill-defined conditions (1 source) Dysuria Episodic Headache; including migraine (20 sources) Episodic paroxysmal hemicrania; Translations: [Episodic paroxysmal hemicrania, 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 Malaise and fatigue (2 sources) Other fatigue; Translations: [Other malaise and fatigue] 11-09-2023 Episodic Osteoarthritis (10 sources) Osteoarthritis of knee; Translations: [Unilateral primary osteoarthritis, unspecified knee] 02-26-2024 Chronic Other aftercare (2 sources) Other fpc (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; Translations: [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] Onset: 05-10-2022 Episodic Other connective tissue disease (6 sources) Disease suspected; Translations: [Other symptoms and signs involving the nervous system] 11-09-2023 Episodic Other connective tissue disease (2 sources) Other symptoms and signs involving the nervous system; Translations: [Other symptoms involving nervous and musculoskeletal systems] 11-09-2023 Episodic Other connective tissue disease (1 source) Suspected respiratory disease; Translations: [Other symptoms and signs involving the nervous system] 11-09-2023 Episodic Other diseases of veins and lymphatics (5 sources) Venous insufficiency of leg; Translations: [Venous insufficiency (chronic) (peripheral)] 02-28-2024 Episodic Other diseases of veins and lymphatics (5 sources) Venous insufficiency (chronic) (peripheral); Translations: [Venous [...] right ear Episodic Other lower respiratory disease (10 sources) Solitary pulmonary nodule; Translations: [Solitary pulmonary nodule] Onset: 04-06-2022 Episodic Other lower respiratory disease (14 sources) Nodule of lung; Translations: [Solitary pulmonary nodule] 11-08-2023 Episodic Comment on above: CXR 6mm - 04/2021,CT small nodules - T small nodules, stable - 04/2023 Other non-traumatic joint disorders (10 sources) Pain in left knee; Translations: [Left knee pain] 12-22-2023 Episodic Other screening for suspected conditions (not mental disorders or infectious disease) (1 source) Other specified abnormal findings of blood chemistry Episodic Residual codes; unclassified (1 source) Procedure and treatment not carried out because of patient's decision for unspecified reasons Episodic Residual codes; unclassified (2 sources) Mammogram declined; Translations: [Procedure and treatment not carried out because of patient's decision for unspecified reasons] 05-02-2024 Episodic Residual codes; unclassified (1 source) FH: Aortic aneurysm; Translations: [Family history of ischemic heart disease and other diseases of the circulatory system] 12-06-2024 Episodic Residual codes; unclassified (1 source) Family history of ischemic heart disease and other diseases of the circulatory system; Translations: [Family history of other cardiovascular diseases] 12-06-2024 Episodic Retinal detachments; defects; vascular occlusion; and retinopathy (1 source) Tributary (branch) retinal vein occlusion, left eye, stable Chronic Past or Other Problems Problem Classification Problem Date Documented Da te Episodic/Chronic Other lower respiratory disease (4 sources) Hemoptysis; Translations: [HEMOPTYSIS] Onset: 01-06-2022 Episodic Results Test Name Value Interpretation Reference Range Facility Basophils Auto (Bld) [#/Vol] on 10-31-2024 Basophils (Bld) [#/Vol] Automated basophil count 0.0-0.1 [facility] Basophils/100 WBC Auto (Bld) on 10-31-2024 Basophils/100 WBC (Bld) Automated basophil % 0.2-2.0 [facility] Eosinophils/100 WBC Auto (Bl d)on 10-31-2024 Eosinophils/100 WBC (Bld) Automated eosinophil % 0.9-7.0 [facility] Erythrocyte distribution wid th Auto (RBC) [Ratio]on 10-31-2024 Erythrocyte distribution width (RBC) [Ratio] Erythrocyte distribution width [Ratio] by Automated count 11.0-15.0 [facility] Hematocrit Auto (Bld) [Volum e fraction]on 10-31-2024 Hematocrit (Bld) [Volume fraction] Hematocrit [Volume Fraction] of Blood by Automated count Low 36.0-48.0 [facility] Hemoglobin [Mass/volume] in Bloodon 10-31-2024 Hemoglobin (Bld) [Mass/Vol] Hemoglobin [Mass/volume] in Blood Low 12.0-16.0 [facility] Laboratory - Hematology and Cell countson 10-31-2024 Immature granulocytes/100 WBC (Bld) 0.0 % 0.0-0.5 [facility] Leukocytes [#/volume] correc pool for nucleated erythrocytes in Blood by Automated counon 10-31-2024 WBC corrected for nucl RBC Auto (Bld) [#/Vol] Leukocytes [#/volume] corrected for nucleated erythrocytes in Blood by Automated coun 4.0-11.0 [facility] Lymphocytes Auto (Bld) [#/Vo l]on 10-31-2024 Lymphocytes (Bld) [#/Vol] Lymphocytes [#/volume] in Blood by Automated count 1.2-3.8 [facility] Lymphocytes/100 WBC Auto (Bl d)on 10-31-2024 Lymphocytes/100 WBC (Bld) Lymphocytes/100 leukocytes in Blood by Automated count 20.5-60.0 [facility] MCH Auto (RBC) [Entitic mass ]on 10-31-2024 MCH (RBC) [Entitic mass] MCH [Entitic mass] by Automated count 26.7-34.0 [facility] MCHC Auto (RBC) [Mass/Vol]on 10-31-2024 MCHC (RBC) [Mass/Vol] MCHC [Mass/volume] by Automated count 29.9-35.2 [facility] MCV Auto (RBC) [Entitic vol] on 10-31-2024 MCV (RBC) [Entitic vol] MCV [Entitic volume] by Automated count High 81.0-99.0 [facility] Monocytes Auto (Bld) [#/Vol] on 10-31-2024 Monocytes (Bld) [#/Vol] Automated blood monocyte count 0.3-0.8 [facility] Monocytes/100 WBC Auto (Bld) on 10-31-2024 Monocytes/100 WBC (Bld) Automated monocyte % 1.7-12.0 [facility] Neutrophils Auto (Bld) [#/Vo l]on 10-31-2024 Neutrophils (Bld) [#/Vol] Neutrophils [#/volume] in Blood by Automated count 1.4-6.5 [facility] Neutrophils/100 WBC Auto (Bl d)on 10-31-2024 Neutrophils/100 WBC (Bld) Automated neutrophil % 43.0-75.0 [facility] No Panel Informationon 10-31 Eosinophils # (Auto) 0.2 10 3/uL 0.0-0.7 [facility] Immature Granulocyte # (Auto) 0.00 10 3/uL 0.00-0.03 [facility] Platelet mean volume Auto (B ld) [Entitic vol]on 10-31-2024 Platelet mean volume (Bld) [Entitic vol] Platelet mean volume [Entitic volume] in Blood by Automated count 9.5-13.5 [facility] Platelets Auto (Bld) [#/Vol] on 10-31-2024 Platelets (Bld) [#/Vol] Platelets [#/volume] in Blood by Automated count 150-450 [facility] RBC Auto (Bld) [#/Vol]on RBC (Bld) [#/Vol] Erythrocytes [#/volume] in Blood by Automated count Low 4.20-5.40 [facility] Basophils Auto (Bld) [#/Vol] on 04-27-2024 Basophils (Bld) [#/Vol] 0.0 10 3/uL 0.0-0.1 [facility] Basophils/100 WBC Auto (Bld) on 04-27-2024 Basophils/100 WBC (Bld) 0.9 % 0.2-2.0 [facility] Eosinophils/100 WBC Auto (Bl d)on 04-27-2024 Eosinophils/100 WBC (Bld) 2.6 % 0.9-7.0 [facility] Erythrocyte distribution wid th Auto (RBC) [Ratio]on 04-27-2024 Erythrocyte distribution width (RBC) [Ratio] 12.6 % 11.0-15.0 [facility] Hematocrit Auto (Bld) [Volum e fraction]on 04-27-2024 Hematocrit (Bld) [Volume fraction] 34.6 % Low 36.0-48.0 [facility] Hemoglobin [Mass/volume] in Bloodon 04-27-2024 Hemoglobin (Bld) [Mass/Vol] 11.7 g/dL Low 12.0-16.0 [facility] Iron binding capacity [Mass/ volume] in Serum or Plasmaon 04-27-2024 Iron binding capacity [Mass/Vol] 232.0 ug/dL Low 250.0-450.0 [facility] Iron saturation [Mass Fracti on] in Serum or Plasmaon 04-27-2024 Iron saturation [Mass fraction] 36.6 % [facility] Laboratory - Chemistry and C hemistry - challengeon 04-27-2024 Cobalamin (Vitamin B12) [Mass/Vol] 947 pg/mL 232-1245 [facility] Comment on above: Performed at: [address] [id number] Director: Jose Miguel Smith PhD, Phone: [phone] Ferritin [Mass/Vol] 218.0 ng/mL 8.0-252.0 [facility] Iron [Mass/Vol] 85.0 ug/dL 50.0-170.0 [facility] Laboratory - Hematology and Cell countson 04-27-2024 Immature granulocytes/100 WBC (Bld) 0.2 % 0.0-0.5 [facility] Leukocytes [#/volume] correc pool for nucleated erythrocytes in Blood by Automated counon 04-27-2024 WBC corrected for nucl RBC Auto (Bld) [#/Vol] 4.6 10 3/uL 4.0-11.0 [facility] Lymphocytes Auto (Bld) [#/Vo l]on 04-27-2024 Lymphocytes (Bld) [#/Vol] 1.1 10 3/uL Low 1.2-3.8 [facility] Lymphocytes/100 WBC Auto (Bl d)on 04-27-2024 Lymphocytes/100 WBC (Bld) 24.5 % 20.5-60.0 [facility] MCH Auto (RBC) [Entitic mass ]on 04-27-2024 MCH (RBC) [Entitic mass] 33.1 pg 26.7-34.0 [facility] MCHC Auto (RBC) [Mass/Vol]on 04-27-2024 MCHC (RBC) [Mass/Vol] 33.8 g/dL 29.9-35.2 [facility] MCV Auto (RBC) [Entitic vol] on 04-27-2024 MCV (RBC) [Entitic vol] 98.0 fL 81.0-99.0 [facility] Monocytes Auto (Bld) [#/Vol] on 04-27-2024 Monocytes (Bld) [#/Vol] 0.4 10 3/uL 0.3-0.8 [facility] Monocytes/100 WBC Auto (Bld) on 04-27-2024 Monocytes/100 WBC (Bld) 9.5 % 1.7-12.0 [facility] Neutrophils Auto (Bld) [#/Vo l]on 04-27-2024 Neutrophils (Bld) [#/Vol] 2.9 10 3/uL 1.4-6.5 [facility] Neutrophils/100 WBC Auto (Bl d)on 04-27-2024 Neutrophils/100 WBC (Bld) 62.3 % 43.0-75.0 [facility] No Panel Informationon 04-27 Eosinophils # (Auto) 0.1 10 3/uL 0.0-0.7 [facility] Immature Granulocyte # (Auto) 0.01 10 3/uL 0.00-0.03 [facility] Platelet mean volume Auto (B ld) [Entitic vol]on 04-27-2024 Platelet mean volume (Bld) [Entitic vol] 10.4 fL 9.5-13.5 [facility] Platelets Auto (Bld) [#/Vol] on 04-27-2024 Platelets (Bld) [#/Vol] 289 10 3/uL 150-450 [facility] RBC Auto (Bld) [#/Vol]on RBC (Bld) [#/Vol] 3.53 10 6/uL Low 4.20-5.40 [facility] Basophils Auto (Bld) [#/Vol] on 02-29-2024 Basophils (Bld) [#/Vol] 0.0 10 3/uL 0.0-0.1 [facility] Basophils/100 WBC Auto (Bld) on 02-29-2024 Basophils/100 WBC (Bld) 0.9 % 0.2-2.0 [facility] Eosinophils/100 WBC Auto (Bl d)on 02-29-2024 Eosinophils/100 WBC (Bld) 4.4 % 0.9-7.0 [facility] Erythrocyte distribution wid th Auto (RBC) [Ratio]on 02-29-2024 Erythrocyte distribution width (RBC) [Ratio] 12.4 % 11.0-15.0 [facility] Hematocrit Auto (Bld) [Volum e fraction]on 02-29-2024 Hematocrit (Bld) [Volume fraction] 34.2 % Low 36.0-48.0 [facility] Hemoglobin [Mass/volume] in Bloodon 02-29-2024 Hemoglobin (Bld) [Mass/Vol] 11.4 g/dL Low 12.0-16.0 [facility] Iron binding capacity [Mass/ volume] in Serum or Plasmaon 02-29-2024 Iron binding capacity [Mass/Vol] 237.0 ug/dL Low 250.0-450.0 [facility] Iron saturation [Mass Fracti on] in Serum or Plasmaon 02-29-2024 Iron saturation [Mass fraction] 46.0 % [facility] Laboratory - Chemistry and C hemistry - challengeon 02-29-2024 Cobalamin (Vitamin B12) [Mass/Vol] 800.0 pg/mL 193.0-986.0 [facility] Ferritin [Mass/Vol] 206.0 ng/mL 8.0-252.0 [facility] Iron [Mass/Vol] 109.0 ug/dL 50.0-170.0 [facility] Laboratory - Hematology and Cell countson 02-29-2024 Immature granulocytes/100 WBC (Bld) 0.2 % 0.0-0.5 [facility] Leukocytes [#/volume] correc pool for nucleated erythrocytes in Blood by Automated counon 02-29-2024 WBC corrected for nucl RBC Auto (Bld) [#/Vol] 4.6 10 3/uL 4.0-11.0 [facility] Lymphocytes Auto (Bld) [#/Vo l]on 02-29-2024 Lymphocytes (Bld) [#/Vol] 1.2 10 3/uL 1.2-3.8 [facility] Lymphocytes/100 WBC Auto (Bl d)on 02-29-2024 Lymphocytes/100 WBC (Bld) 26.9 % 20.5-60.0 [facility] MCH Auto (RBC) [Entitic mass ]on 02-29-2024 MCH (RBC) [Entitic mass] 32.6 pg 26.7-34.0 [facility] MCHC Auto (RBC) [Mass/Vol]on 02-29-2024 MCHC (RBC) [Mass/Vol] 33.3 g/dL 29.9-35.2 [facility] MCV Auto (RBC) [Entitic vol] on 02-29-2024 MCV (RBC) [Entitic vol] 97.7 fL 81.0-99.0 [facility] Monocytes Auto (Bld) [#/Vol] on 02-29-2024 Monocytes (Bld) [#/Vol] 0.5 10 3/uL 0.3-0.8 [facility] Monocytes/100 WBC Auto (Bld) on 02-29-2024 Monocytes/100 WBC (Bld) 11.1 % 1.7-12.0 [facility] Neutrophils Auto (Bld) [#/Vo l]on 02-29-2024 Neutrophils (Bld) [#/Vol] 2.6 10 3/uL 1.4-6.5 [facility] Neutrophils/100 WBC Auto (Bl d)on 02-29-2024 Neutrophils/100 WBC (Bld) 56.5 % 43.0-75.0 [facility] No Panel Informationon 02-28 Eosinophils # (Auto) 0.2 10 3/uL 0.0-0.7 [facility] Immature Granulocyte # (Auto) 0.01 10 3/uL 0.00-0.03 [facility] Platelet mean volume Auto (B ld) [Entitic vol]on 02-29-2024 Platelet mean volume (Bld) [Entitic vol] 11.3 fL 9.5-13.5 [facility] Platelets Auto (Bld) [#/Vol] on 02-29-2024 Platelets (Bld) [#/Vol] 283 10 3/uL 150-450 [facility] RBC Auto (Bld) [#/Vol]on RBC (Bld) [#/Vol] 3.50 10 6/uL Low 4.20-5.40 [facility] Laboratory - Chemistry and C hemistry - challengeon 12-28-2023 Bilirubin Ql (U) Negative [facility] Glucose (U) [Mass/Vol] Negative [facility] Ketones Ql (U) Negative [facility] pH (U) 6.0 [pH] [facility] Specific gravity (U) [Rel density] 1.015 [facility] Urobilinogen (U) [Mass/Vol] 0.2 mg/dL [facility] Laboratory - Specimen inform ationon 12-28-2023 Appearance (U) Cloudy [facility] Color (U) Yellow [facility] Laboratory - Urinalysison Leukocyte esterase Test strip Ql (U) 2+ [facility] Nitrite Ql (U) Positive [facility] Protein Ql (U) 2+ [facility] No Panel Informationon 12-27 Urine Occult Blood 2+ [facility] Basophils Auto (Bld) [#/Vol] on 11-09-2023 Basophils (Bld) [#/Vol] 0.0 10 3/uL 0.0-0.1 [facility] Basophils/100 WBC Auto (Bld) on 11-09-2023 Basophils/100 WBC (Bld) 0.8 % 0.2-2.0 [facility] Eosinophils/100 WBC Auto (Bl d)on 11-09-2023 Eosinophils/100 WBC (Bld) 3.6 % 0.9-7.0 [facility] Erythrocyte distribution wid th Auto (RBC) [Ratio]on 11-09-2023 Erythrocyte distribution width (RBC) [Ratio] 12.3 % 11.0-15.0 [facility] Estimated glomerular filtrat ion rate (GFR) non- Americanon 11-09-2023 GFR/1.73 sq M.predicted among non-blacks MDRD (S/P/Bld) [Vol rate/Area] mL/min/{1.73_m2} >=60 [facility] Globulin Calc (S) [Mass/Vol] on 11-09-2023 Globulin (S) [Mass/Vol] 3.2 g/dL [facility] Hematocrit Auto (Bld) [Volum e fraction]on 11-09-2023 Hematocrit (Bld) [Volume fraction] 36.2 % 36.0-48.0 [facility] Hemoglobin [Mass/volume] in Bloodon 11-09-2023 Hemoglobin (Bld) [Mass/Vol] 11.9 g/dL 12.0-16.0 [facility] Laboratory - Chemistry and C hemistry - challengeon 11-09-2023 Albumin [Mass/Vol] 3.7 g/dL 3.4-5.0 [facility] ALP [Catalytic activity/Vol] 152 U/L 46-116 [facility] ALT [Catalytic activity/Vol] 20 U/L 14-59 [facility] AST [Catalytic activity/Vol] 15 U/L 15-37 [facility] Bilirubin [Mass/Vol] 0.2 mg/dL 0.2-1.0 [facility] Calcium [Mass/Vol] 9.1 mg/dL 8.5-10.1 [facility] Chloride [Moles/Vol] 105 mmol/L 98-107 [facility] CO2 [Moles/Vol] 30.6 mmol/L 21.0-32.0 [facility] Creatinine [Mass/Vol] 0.83 mg/dL 0.55-1.02 [facility] GFR/1.73 sq M.predicted MDRD (S/P/Bld) [Vol rate/Area] mL/min/{1.73_m2} >=60 [facility] Glucose [Mass/Vol] 107 mg/dL 74-106 [facility] Potassium [Moles/Vol] 3.4 mmol/L 3.5-5.1 [facility] Protein [Mass/Vol] 6.9 g/dL 6.4-8.2 [facility] Sodium [Moles/Vol] 142 mmol/L 136-145 [facility] TSH Qn 1.941 m[IU]/L 0.358-3.740 [facility] Urea nitrogen [Mass/Vol] 21.0 mg/dL 7.0-18.0 [facility] Urea nitrogen/Creatinine [Mass ratio] 25.3 mg/mg [facility] Laboratory - Hematology and Cell countson 11-09-2023 Immature granulocytes/100 WBC (Bld) 0.2 % 0.0-0.5 [facility] Leukocytes [#/volume] correc pool for nucleated erythrocytes in Blood by Automated counon 11-09-2023 WBC corrected for nucl RBC Auto (Bld) [#/Vol] 5.1 10 3/uL 4.0-11.0 [facility] Lymphocytes Auto (Bld) [#/Vo l]on 11-09-2023 Lymphocytes (Bld) [#/Vol] 1.4 10 3/uL 1.2-3.8 [facility] Lymphocytes/100 WBC Auto (Bl d)on 11-09-2023 Lymphocytes/100 WBC (Bld) 27.2 % 20.5-60.0 [facility] MCH Auto (RBC) [Entitic mass ]on 11-09-2023 MCH (RBC) [Entitic mass] 32.5 pg 26.7-34.0 [facility] MCHC Auto (RBC) [Mass/Vol]on 11-09-2023 MCHC (RBC) [Mass/Vol] 32.9 g/dL 29.9-35.2 [facility] MCV Auto (RBC) [Entitic vol] on 11-09-2023 MCV (RBC) [Entitic vol] 98.9 fL 81.0-99.0 [facility] Monocytes Auto (Bld) [#/Vol] on 11-09-2023 Monocytes (Bld) [#/Vol] 0.5 10 3/uL 0.3-0.8 [facility] Monocytes/100 WBC Auto (Bld) on 11-09-2023 Monocytes/100 WBC (Bld) 9.5 % 1.7-12.0 [facility] Neutrophils Auto (Bld) [#/Vo l]on 11-09-2023 Neutrophils (Bld) [#/Vol] 3.0 10 3/uL 1.4-6.5 [facility] Neutrophils/100 WBC Auto (Bl d)on 11-09-2023 Neutrophils/100 WBC (Bld) 58.7 % 43.0-75.0 [facility] No Panel Informationon 11-08 Eosinophils # (Auto) 0.2 10 3/uL 0.0-0.7 [facility] Immature Granulocyte # (Auto) 0.01 10 3/uL 0.00-0.03 [facility] Platelet mean volume Auto (B ld) [Entitic vol]on 11-09-2023 Platelet mean volume (Bld) [Entitic vol] 11.2 fL 9.5-13.5 [facility] Platelets Auto (Bld) [#/Vol] on 11-09-2023 Platelets (Bld) [#/Vol] 336 10 3/uL 150-450 [facility] RBC Auto (Bld) [#/Vol]on RBC (Bld) [#/Vol] 3.66 10 6/uL 4.20-5.40 [facility] Serum or plasma albumin/glob ulin mass ratioon 11-09-2023 Albumin/Globulin [Mass ratio] 1.2 {ratio} [facility] Serum or plasma anion gap de terminationon 11-09-2023 Anion gap [Moles/Vol] 9.8 mmol/L [facility] - Chemistry and C hemistry - challengeon 10-14-2023 Bilirubin Ql (U) Negative [facility] Glucose (U) [Mass/Vol] Negative [facility] Ketones Ql (U) Negative [facility] pH (U) 6.5 [pH] [facility] Specific gravity (U) [Rel density] 1.010 [facility] Urobilinogen (U) [Mass/Vol] 0.2 mg/dL [facility] - Specimen inform ationon 10-14-2023 Appearance (U) Clear [facility] Color (U) Yellow [facility] - Urinalysison Leukocyte esterase Test strip Ql (U) Negative [facility] Nitrite Ql (U) Negative [facility] Protein Ql (U) Trace [facility] No Panel Informationon 10-14 Urine Occult Blood Negative [facility] Urinalysis - DIPSTICKon 10-2 Appearance (U) cloudy [employer] Other Bilirubin Ql (U) Negative [employer] Other Color (U) yellow [employer] Other Glucose Ql (U) Negative [employer] Other Hemoglobin Ql (U) 6.5 [employer] Other Ketones Ql (U) Negative [employer] Other Leukocyte esterase Test strip Ql (U) large [employer] Other Nitrite Ql (U) Negative [employer] Other pH (U) 5 [pH] [employer] Other Protein Ql (U) 17 [employer] Other Specific gravity (U) [Rel density] 1.020 [employer] Other Urobilinogen (U) [Mass/Vol] Negative [employer] Other Urinalysis - DIPSTICK [employer] Other CBC AUTO DIFFon 08-10-2022 BASO # 0.0 103/ul Normal 0.0-0.1 [facility] Comment on above: Performed By: #### C BC #### [facility] [address] [place] [address] Dr. Bo Brown Basophils/100 WBC (Bld) 0.9 % Normal 0.2-2.0 [facility] Comment on above: Performed By: #### C BC #### [facility] [address] [place] [address] Dr. Bo Brown EO # 0.1 103/ul Normal 0.0-0.7 [facility] Comment on above: Performed By: #### C BC #### [facility] [address] [place] [address] Dr. Bo Brown Eosinophils/100 WBC (Bld) 2.1 % Normal 0.9-7.0 [facility] Comment on above: Performed By: #### C BC #### [facility] [address] [place] [address] Dr. Bo Brown Erythrocyte distribution width (RBC) [Ratio] 12.2 % Normal 11.0-15.0 [facility] Comment on above: Performed By: #### C BC #### [facility] [address] [place] [address] Dr. Bo Brown Hematocrit (Bld) [Volume fraction] 34.1 % Critically low 36.0-48.0 [facility] Comment on above: Performed By: #### C BC #### [facility] [address] [place] [address] Dr. Bo Brown Hemoglobin (Bld) [Mass/Vol] 11.3 g/dL Critically low 12.0-16.0 [facility] Comment on above: Performed By: #### C BC #### [facility] [address] [place] [address] Dr. Bo Brown IG # 0.01 10e3/ul Normal 0.00-0.03 [facility] Comment on above: Performed By: #### C BC #### [facility] [address] [place] [address] Dr. Bo Brown IG % 0.2 % Normal 0.0-0.5 [facility] Comment on above: Performed By: #### C BC #### [facility] [address] [place] [address] Dr. Bo Brown LYMPH # 1.2 103/ul Normal 1.2-3.8 [facility] Comment on above: Performed By: #### C BC #### [facility] [address] [place] [address] Dr. Bo Brown Lymphocytes/100 WBC (Bld) 28.8 % Normal 20.5-60.0 [facility] Comment on above: Performed By: #### C BC #### [facility] [address] [place] [address] Dr. Bo Brown MANUAL DIFF REQ NO Normal [facility] Comment on above: Performed By: #### C BC #### [facility] [address] [place] [address] Dr. Bo Brown MCH (RBC) [Entitic mass] 32.6 pg Normal 26.7-34.0 [facility] Comment on above: Performed By: #### C BC #### [facility] [address] [place] [address] Dr. Bo Brown MCHC (RBC) [Mass/Vol] 33.1 g/dL Normal 29.9-35.2 [facility] Comment on above: Performed By: #### C BC #### [facility] [address] [address] [address] Bo Brown MCV (RBC) [Entitic vol] 98.3 fL Normal 81.0-99.0 [facility] Comment on above: Performed By: #### C BC #### [facility] [address] [address] [address] Bo Brown MONO # 0.4 103/ul Normal 0.3-0.8 [facility] Comment on above: Performed By: #### C BC #### [facility] [address] [address] [address] Bo Brown Monocytes/100 WBC (Bld) 9.7 % Normal 1.7-12.0 [facility] Comment on above: Performed By: #### C BC #### [facility] [address] [address] [address] Bo Brown NEUT # 2.5 103/ul Normal 1.4-6.5 [facility] Comment on above: Performed By: #### C BC #### [facility] [address] [address] [address] Bo Brown Neutrophils/100 WBC (Bld) 58.3 % Normal 43.0-75.0 [facility] Comment on above: Performed By: #### C BC #### [facility] [address] [address] [address] Bo Brown Platelet mean volume (Bld) [Entitic vol] 10.5 fL Normal 9.5-13.5 [facility] Comment on above: Performed By: #### C BC #### [facility] [address] [address] [address] Bo Brown PLT 294 103/ul Normal 150-450 [facility] Comment on above: Performed By: #### C BC #### [facility] [address] [address] [address] Bo Brown RBC 3.47 106/ul Critically low 4.20-5.40 [facility] Comment on above: Performed By: #### C BC #### [facility] [address] [place] [address] Dr. Bo Brown WBC 4.2 103/ul Normal 4.0-11.0 [facility] Comment on above: Performed By: #### C BC #### [facility] [address] [place] [address] Dr. Bo Brown IRON AND TIBCon 08-10-2022 % SATURATION 41.4 % Normal [facility] Comment on above: Performed By: #### B 12FOL, FETIBC #### [facility] [address] [place] [address] Dr. Bo Brown Iron [Mass/Vol] 91.0 ug/dL Normal 50.0-170.0 [facility] Comment on above: Performed By: #### B 12FOL, FETIBC #### [facility] [address] [place] [address] Dr. Bo Brown TIBC DIRECT 220.0 ug/dL Critically low 250.0-450.0 [facility] Comment on above: Performed By: #### B 12FOL, FETIBC #### [facility] [address] [place] [address] Dr. Bo Brown VIT B12 AND FOLATEon 022 Cobalamin (Vitamin B12) [Mass/Vol] 987.0 pg/mL Critically high 193.0-986.0 [facility] Comment on above: Performed By: #### B 12FOL, FETIBC #### [facility] [address] [place] [address] Dr. Bo Brown FOLATE 17.70 ng/mL Normal 8.60-58.90 [facility] Comment on above: Performed By: #### B 12FOL, FETIBC #### [facility] [address] [place] [address] Dr. Bo Brown CBC AUTO DIFFon 05-06-2022 BASO # 0.0 103/ul Normal 0.0-0.1 [facility] Comment on above: Performed By: #### C BC #### [facility] [address] [place] [address] Dr. Bo Brown Basophils/100 WBC (Bld) 0.7 % Normal 0.2-2.0 [facility] Comment on above: Performed By: #### C BC #### [facility] [address] [place] [address] Dr. Bo Brown EO # 0.1 103/ul Normal 0.0-0.7 [facility] Comment on above: Performed By: #### C BC #### [facility] [address] [place] [address] Dr. Bo Brown Eosinophils/100 WBC (Bld) 2.6 % Normal 0.9-7.0 [facility] Comment on above: Performed By: #### C BC #### [facility] [address] [place] [address] Dr. Bo Brown Erythrocyte distribution width (RBC) [Ratio] 12.7 % Normal 11.0-15.0 [facility] Comment on above: Performed By: #### C BC #### [facility] [address] [place] [address] Dr. Bo Brown Hematocrit (Bld) [Volume fraction] 35.2 % Critically low 36.0-48.0 [facility] Comment on above: Performed By: #### C BC #### [facility] [address] [place] [address] Dr. Bo Brown Hemoglobin (Bld) [Mass/Vol] 11.6 g/dL Critically low 12.0-16.0 [facility] Comment on above: Performed By: #### C BC #### [facility] [address] [place] [address] Dr. Bo Brown IG # 0.02 10e3/ul Normal 0.00-0.03 [facility] Comment on above: Performed By: #### C BC #### [facility] [address] [place] [address] Dr. Bo Brown IG % 0.5 % Normal 0.0-0.5 [facility] Comment on above: Performed By: #### C BC #### [facility] [address] [place] [address] Dr. Bo Brown LYMPH # 1.1 103/ul Critically low 1.2-3.8 [facility] Comment on above: Performed By: #### C BC #### [facility] [address] [place] [address] Dr. Bo Brown Lymphocytes/100 WBC (Bld) 25.8 % Normal 20.5-60.0 [facility] Comment on above: Performed By: #### C BC #### [facility] [address] [place] [address] Dr. Bo Brown MANUAL DIFF REQ NO Normal [facility] Comment on above: Performed By: #### C BC #### [facility] [address] [place] [address] Dr. Bo Brown MCH (RBC) [Entitic mass] 32.6 pg Normal 26.7-34.0 [facility] Comment on above: Performed By: #### C BC #### [facility] [address] [place] [address] Dr. Bo Brown MCHC (RBC) [Mass/Vol] 33.0 g/dL Normal 29.9-35.2 [facility] Comment on above: Performed By: #### C BC #### [facility] [address] [place] [address] Dr. Bo Brown MCV (RBC) [Entitic vol] 98.9 fL Normal 81.0-99.0 [facility] Comment on above: Performed By: #### C BC #### [facility] [address] [place] [address] Dr. Bo Brown MONO # 0.4 103/ul Normal 0.3-0.8 [facility] Comment on above: Performed By: #### C BC #### [facility] [address] [place] [address] Dr. Bo Brown Monocytes/100 WBC (Bld) 9.5 % Normal 1.7-12.0 [facility] Comment on above: Performed By: #### C BC #### [facility] [address] [place] [address] Dr. Bo Brown NEUT # 2.6 103/ul Normal 1.4-6.5 [facility] Comment on above: Performed By: #### C BC #### [facility] [address] [place] [address] Dr. Bo Brown Neutrophils/100 WBC (Bld) 60.9 % Normal 43.0-75.0 [facility] Comment on above: Performed By: #### C BC #### [facility] [address] [place] [address] Dr. Bo Brown Platelet mean volume (Bld) [Entitic vol] 10.7 fL Normal 9.5-13.5 [facility] Comment on above: Performed By: #### C BC #### [facility] [address] [place] [address] Dr. Bo Brown PLT 284 103/ul Normal 150-450 [facility] Comment on above: Performed By: #### C BC #### [facility] [address] [place] [address] Dr. Bo Brown RBC 3.56 106/ul Critically low 4.20-5.40 [facility] Comment on above: Performed By: #### C BC #### [facility] [address] [place] [address] Dr. Bo Brown WBC 4.3 103/ul Normal 4.0-11.0 [facility] Comment on above: Performed By: #### C BC #### [facility] [address] [place] [address] Dr. Bo Brown PROF CHEM 8 (BAS METB)on Anion gap [Moles/Vol] 9.7 mmol/L Normal [facility] Comment on above: Performed By: #### B MP #### [facility] [address] [place] [address] Dr. Bo Brown Calcium [Mass/Vol] 8.8 mg/dL Normal 8.5-10.1 [facility] Comment on above: Performed By: #### B MP #### [facility] [address] [place] [address] Dr. Bo Brown Chloride [Moles/Vol] 103 mmol/L Normal 98-107 [facility] Comment on above: Performed By: #### B MP #### [facility] [address] [address] [address] Bo Brown CO2 [Moles/Vol] 28.9 mmol/L Normal 21.0-32.0 [facility] Comment on above: Performed By: #### B MP #### [facility] [address] [address] [address] Bo Brown Creatinine [Mass/Vol] 0.69 mg/dL Normal 0.55-1.02 [facility] Comment on above: Performed By: #### B MP #### [facility] [address] [address] [address] Bo Brown EGFR-AF MACEDONIAN >60 Normal >=60 [facility] Comment on above: Performed By: #### B MP #### [facility] [address] [address] [address] Bo Brown EGFR-NON AF MACEDONIAN >60 Normal >=60 [facility] Comment on above: Performed By: #### B MP #### [facility] [address] [address] [address] Bo Brown Glucose [Mass/Vol] 111 mg/dL Critically high 74-106 [facility] Comment on above: Performed By: #### B MP #### [facility] [address] [address] [address] Bo rBown Potassium [Moles/Vol] 3.6 mmol/L Normal 3.5-5.1 [facility] Comment on above: Performed By: #### B MP #### [facility] [address] [address] [address] Bo Brown Sodium [Moles/Vol] 138 mmol/L Normal 136-145 [facility] Comment on above: Performed By: #### B MP #### [facility] [address] [address] [address] Bo Brown Urea nitrogen [Mass/Vol] 15.0 mg/dL Normal 7.0-18.0 [facility] Comment on above: Performed By: #### B MP #### [facility] [address] [place], [place] [address] Dr. Bo Brown Urea nitrogen/Creatinine [Mass ratio] 21.7 mg/mg Normal [facility] Comment on above: Performed By: #### B MP #### [facility] [address] [place], [place] [address] CHEST WO CONon [...] by: GALA TRIANA Date: 2022-04-07 06:28 Normal [facility] XR CHEST 2 Von 01-06-2022 XR CHEST [...] by: MALCOM MAGANA Date: 2022-01-06 09:15 Normal [facility] Consent for Treatmenton 0 Consent for Treatment [phone] 1 [id number] [id number]:127 Normal [facility] Coding Summary.on 05-18-2021 Coding Summary. CD:[id number] JQw3vQe+PGhlYWQ+PE1 JTAHfO93mmXEhbQ1CA3 mHBG8BHRHUYCKGSR8KT B3spRF0FNbfE6GssyHm KqmkiQVmFV31WMt8AFE 9gJocPGueeY8kxNYeR7 w2JwAeLJ18dE97MOdtM GBnHuV9QmLywcowdBPk H1wgMlSkdVMeDrb+PHR hYmxlIHdpZHRoPScxMD WnHeQhfSgmMV0uIn8zC GVyLWNvbGxhcHNlOiBj v1dmLFApUXglNK4liJk qA9OnoBJ1JDSqe1i9Rl 48dHI+EWNdBSO7xDptL Fmmh565EjPvk1niQLQ7 sHJaYNfuFBX3O39xd4W 6FSHlRYZjHXI4zEJ0vK 9wfXfczwpnE8SebDQxX cW4EVW8jKQbgS0juAae heuluW7oWae+V41SGN9 TCCTHGY8LYri4F7SgQr wvdHI+LT76AIEqTF63n XJbkTFsw6dedCr1RnTh IUUzRWT0aNvlYVewm1X sOKTtL06yyIRjb0W7JA DvnTogdHDoTzEdiKB5k A6cZFyylsppl8xdeuhf Mpbft8gaed98uB34N47 hCXbdNRKbPYU8NFKzGZ QjjSielc8uuW0eTq2+I Seer5jil5gnxTv8AjGu WYSdokGttCyvGGS2b8Y xDp44U7UxkJuii4LeCc w7af46nENly0T2aEV8O EsjLHTbuS5rCOxtOjS2 KOVgQgNeeM09nSCsTWn jPv8dyNsnjYtaPK2rLP RpusuxYFLnwN6qBFJnc GBfhHqrCY6oXWIvkiqq n329BoLmUIM0MWNqzIA gS5YblB2kPyPyEUBzEI UdW3BidVMzGItaR365I FmmMjN9ZVZoetWcC6Hj HFRpmTzjYlP6r4J6Dh5 Eh1FeaajeKSW5FJurHJ E2XaS4VkCgGfC7V3YyI fo4QLMniBgiTG5lZ6Sx YVDzhuqbalmvbVU7WHM dVPLbaJ25kCWwWMagWs 5uf5K9a857FMWzCRJpo M64Bo9giDsaDIEeqHNW wY5razogd9toctbuLkT rXAPbIGq2BDd9VTLdcQ tlUdWyLUB5YlD4UQM0y GSvjM5lpHorqbuiyW8r Oyc+G17cyC7qIHE1SYB 8bihfJPXhewBcCG09JA 40V5VgTiizfCHwmKS+P UPpyqEbcBfuOL2pNcUy z3sat7NoASviK4OxFYF iRShpTya7VMLnUWN4zA D3yA2pOSTcNAwot3N6c HA6N0OuukAjxp3kt7ve EMThRPafG34wiEHmf7Z 6DYZftYS0HMOscSbxLr FjoU84Mmk+PGNvbGdyb 4YoCcywj7nql6xcnIq4 IjMwJSIgdmFsaWduPSJ 1r0SlCh92F57oLKgjZJ RoPSIxNSUiIHZhbGlnb k1jtW3dJk0+PGNvbCB3 pQK3jA9pVUEbMoM4DEf sH094EnHybZMaLwrqp3 dra2xsqAg1RlQhMDAwp gWdnLfmCQB0j6WvSa89 J89gULluRIExLNNfMGH mXATikQscgl4mdR2rGp 8+RR1ak4cwlc15vM46j HI+LUObMQL2tXkpGWhc EHZkkS0yYIrpMcL3CKE pGvYpoG87aUFiMRvbKv 0xpUmtfQpbPP6sVBTps wass602BlSxb8yrMQUc yIQfIGziJIP8S12bq6X 7XCMxKLEoEYW1uUD5dF 1hbGlnbjogbGVmdDsgd zRlgVjdADbxUQbdS591 IHRvcDsnPlBhdGllbnQ pQjMgRIg8I6NkXyb4RF PwjCtaAX5imEAlDZsjC n6maXblbCwdLU5gHKOb ipike739PbUul3foENL lcXFvMDooDXM5T78iq2 L8OBVnLTXkPKU8lPQ0y K5bqWsxbspexEFioRxq mfRzwXeqJUsuYXqcD89 6IHRvcDsnPkJpcnRoIE ChqUB0OH26LF34oPXyw 1U3uSN5Y8WwZNOueccf xkktfXN9HSFbXYPhcO9 1Ll3dxEssWn7dGUIsQM D1BHXiiMGzL4SkmE5lR tMtAWWqNSHpM7DukTXs OQphA425LHgkMuB0LKM wxvWjD6RqJFUgaCyzBw Z1i3V1Dt0UM6O4LA49E A59jMFcq2S7gUK9E1Ok IPCalfsqobxifOL7XEB cVYJnxD83Nw3nsTcdNe 1nZCIxOSQ2LQRgfDSuP 1FxvK5bLwUeZEUaIKCo V0QaeHYtLOotH110UAj bSqX2FSSrkcSeP7SaKW OzaWyzXvH9g7T8Yb4ER Zs2XK97GV95yLMbc7Q2 cLB4J0QmYCXtdhrcrbs viKE9XYGzNJRreE89Bd 3geKwdKq8bTQNmGTH6V JYagIOpO3WvxE1bSfMw YYMkBEBkJ4FvfJErJPj bJ524SHiqZgG2KNTecb EwG9FqDKSudOhfCeZ7v 7U4Og6FPYRbVI52IGU6 qJI0ZI10DX63Z3FhXcn vdGFibGU+PHRhYmxlIH dpZHRoPScxMDAlJyBzd JplLT5iMo7aVCDwTMAw rTfkoWRuZkBre6dmBTB aKDlsFO4uaWjoM6KdsI W6KJEjt5y4Ne12B07kJ 3JvdXA+HKZffUF5jMF0 qH0mLaReIdC0XTivT96 9LiTsnIYmPbjrx5udt5 yxtNm5DyT2HJTionWor MkyNFZ1b0AyNn48P09o IHdpZHRoPSIxNSUiIHZ skBwspw0cjR2kRl5+PG QgyJW3yAD6iM0nPdBfK vU3AWtfR186KxImeGJl Lfjsy2szi9rjsUj8TdE bVDKbrvNqfJqoYZT7f9 UcUj99B8HolCsdy9JtB py1tm03nSEfc5E9wCI1 Y3GeNSPuhdxotRBakEs dRG2iIGZbvkmgDSVodG 8aNXAgS4s8JmUwMvJ2V JjhT4XnmfJ0RNFugDMp JTwoHDZ8Y75cz9O8LLV lKWYpNBB1eFO3kW8mxA lnbjogbGVmdDsgdmVyd DinXAorHNfuJ800CSYq eNdaSVFgjV8fBVWrtCQ tbGqmJM2zWSKiswwqWk wATx0KFlicE3DGW3pZO pWIZX81XS83eTZav0V1 vQT4P4NeILTyhowrodu lrYR1ICBbRRMxnF17eF IiJVtiMr7gk2R5k938X XVcBQWawO12Xb7cfNpt TDZkpSFVlK3jvfegw3x hsjgeJtIrAPKhEAm2DZ i8WKEhkCeeTqGwBFN1B tW4ZED5dUMagC5lgOzf wkwgkT0tMpq+MTAvMzE vMTkzOTwvdGQ+PHRkIH T4hChpCYtwRETtsA7cV VGvF9i8LcZzSaZ8URqx N4UwWJCfrjefNs05iB5 gIbDlUgQ9IQnbK6Nkus G9SCMuyNHcFWstPJF8H 95lc9V4IRLnOVDuEHB5 lUR4wJ5ufFxxiygdqMM mdDsgdmVydGljYWwtYW akV896HJFmqOksRcwaR TgvGSXwSM35RM62xJHo t1V3mKF4U4QhOYKbisr bqeqqcZR4VMFaJFEfqB 21zLBwKExfQg9ao2S0b 466LYRzQKGkgH40Cv0l wHchLJBbaTWGuH5fvwk ki8vugdjvCjAzMELdPQ y8WSx4OMVkjYbhGoZyK KU7QpU6RLE4vUMxeQ5v yAxqauhdgV0mXno+RmV oORomQD06FV01iZQic3 T1yMF4D0OqYRIsldmpy vdocRW2RNNbKVDqdW71 pSYnIVhvKq3cc6S7j67 6OPOiVGDhoC41My4eyF pcUHGdeCFRnV9pjppfj 0rsofhpNyVtSNQpQBk3 QLp4UHLgiJrfLjPpJJP 8HfM6LXQ5eIJdjO5vbR tghzrbiP4xNvy+T3V0c ED7qMImsEeerKX+PC90 bk25M7PiBesiQha3QTF cYAL5sTW6bI6yPSTeMA pfp0G4aLN8D3EslwQrx g0xn2avGRHwFJkmF35l yAEjz6I8XRZamVU2OZW myYtuPjWkwG61Tuh+PG IraIsdm9QxWfcgd7sgx 1uxnJa8BgEoQCFichBl vUuzZXT5c2ZhYf36F83 sIHdpZHRoPSIzMCUiIH DkvRxrob2evH9iEj3+P GPwrTZ3cBE6kD2oZoBg TqJ5FKowD214VjFegLU lIjxyi9kry4kpbJy8Kc NaTTQohkPheIevGGF5o 4EgWz69K8OvuDeen1Df Fme7ca56xEQli5W9iCO 7P0MvKPZcrjwelJMiuP sxGT2fKWReqbquZCBrc R4hBSKtS1i9OtCwPrV0 CVxcN0ZlxtL8RPHgiNY wQLVtbNNTuR2xdlxkt6 ijqlmuHgTeCDErNQo5H Xy3PZXppFwqQkKxPAQ0 GgB9EJZ1cMUuxB5ixVc bducptN7uTdi+UGh5c2 sniMGqGI8tgTB7OY99P T75zJSyl1H9aQE2S0Vu QAKpckrhyxxloJK3ZPQ tXOHzcE83Yo1nuVezZi 3oERVgMEF7RSUotBZfJ 5XngB3zIpRsGACrSKJg L2KowCQyIFwgH470KLl pXqN2KNUgfrPfF6PePE ZfwTraXfX5l1V4Sr7JP I69HY89JQ99rNVco6G1 wIN6E7XiYGIqubhbxrd qoJI1SVOjKLVpjY19Xj 4xdHfsZg6cSNYwAGQ1T PEayHSiG0PjnW7xZoXl LZKtJDJzR5IreSErWYr wL385EJpuTvV4XGIzld XbP5FxHTCffVogBtM6z 6E6Zz3WZe18FX42MU64 hJKal2T9aDT2A1UvNUM uucoiqumiiQZ9QXScHA UnfG25Kc3ihWtwBe2aE FSgUOF3WPGfqERuR4Yo qC5vNtWnWZOcSXRlL1O wgRErGOxaR267UMmoBz S5ORBfizDnF6RbWVYyd QorMqE4a1F1Zn3HUIte bab6B8KbRbmpfFO+PC9 8DRTxEU48jVEewYWcg3 gxcDh9AtVlFOJwACL8r KvgXXgck3IdLKRhL09y bGFw (more content not included)... [facility] Coding Summary. [id number] WNk1yRo+PGhlYWQ+PE1 RHSIyH74fkPBbcH9ZF8 wICK1SRSSWVBAMBR1ZL N2raXU9VFgiG9GxjvHx TprdfCSiKI63HCe3BQA 1tAchAYukbH3mpROzY6 b9DhQiHS16xM97JHerY PEqQpD2AmBkwvvyyOAg M9jbKvJixKLaKbg+PHR hYmxlIHdpZHRoPScxMD ZyOqOptHxaXP5tIc1xB GVyLWNvbGxhcHNlOiBj n9hxQPQvYBizAU3cgEi pS6ZbeGN2JVCox2v7Jv 48dHI+TIZeCWG6mImqK Prsp638HwQmv2uxKBE0 oOSiRFvvLXA3Q76dj7F 5YPNwFJFcAMZ1lHW8wQ 5rtWvpuatvT5HbgALcI oO4THA1lIQpiM7xePzb dpcnhE5dFha+W95JPL6 CAKPHYU8ARpk9F6McNe wvdHI+ZB11YQTjNO18y LFbkUGhg8qeeHp7AlEh SFLvEUK7eWbsVFqhk7Z iVGQaO11xfMMaa2Z9VB NibDwfeIJsGxIrgEW0c V0nPZmmtvvkd5wjrpkp Vnvlt3vrot96zS05S50 iHDjhCUUtJAR8COTjQR CvsZkswu2hoH1jWn1+I Xtxh9jeq9tzkGw6GhRe DTCvrwQwfVtnHMI7u0Z zMl68N5ItmEjir2IdLv a9to80wHHua9B0xAW9C FqeNOOshV8hORzfVuP7 HPIeCkZmkT82lYWmVLv aRb4muIofaJtlYS8tDA GqkarxYGUngG8wERLvw LUlvAgbRW9tZTRhjqtf c929EgMaVZW7YCZmlRZ kK2NpcT6vPgBhXWEiKS SxT4MkiHFgBNchJ762O JodJsN0XXGyhsCwJ7Am MRJgrXdbRnE3k9I4Cs3 Da8YuorhlNWP5KPvoIK I2PqUcNeNfXfG4W5HuS ma7VOPauEyrDF9zP4Ln EYPdzpqrdkmqaOA1EQX nRVHgzW38cNVxVCciZz 1ek4T2j043YPDoJZFgq Z54Sr6hgBcpFMGtnYYO eV9lkezkh5pmcvfuBbQ tWSZnYHl7YJk9ZYGwfI ceYbDeHML8NaF4MXJ5x ZRswW9dsDcpoinuiB7x Oyc+E13qoR5nOWQ5FPY 7xbcwYTDmxkYeUH72MR 34R1WqKgbayYFfuRH+P OBhugIqyFweGS3sNhFh j1qfr5MqGZthN5GhVMQ qWNskRyd7JBBtPGO2pC S9bT6kDQTzKKgll5M5l GN6I7NnehNobt4ag5ss NQDnZXkgP04dpKAov1Y 7GGNiqMG4CRKyfHfvYz VycB59Lja+PGNvbGdyb 4AlImvvz3fmk1jxrFp7 IjMwJSIgdmFsaWduPSJ 9u8NfAw52H27yFPapPB RoPSIxNSUiIHZhbGlnb e1huR6tTv0+PGNvbCB3 yOF2sQ7yCDDvBkG1BZt tI371UaOnwADdLnmsd0 oyy3uedKs6FgZoNEThw oLnvJorHZP4d1BgIh81 H27vJYqvCFFaCGKjMGZ kEMHqaUoegn4dkB5sLk 8+CW8zz7tjbz25hN52b HI+ANOmDGQ9kMwhYGrp GSWxwT4wGVuwPyT1VQM oTwMcgK26qEDgYNisAf 0ikWnicTxbZA1kKIVcr kzal954CkFfz5pzLAOs sZZsEPolSHJ1C38dk6U 8KHFkIVBsAES6kSQ1mT 1hbGlnbjogbGVmdDsgd vYsePkwRTnaDQqfD812 IHRvcDsnPlBhdGllbnQ fYiVjLXz4Z2PfWsh2NR AdfFmlHV8gvNFiULnhM s0mvKedlGbkSG1sNVTr ykbnw287WbQzf1mpBNL vfQEqDJlwJET2U01ox4 Q3LJNtMGYpHIQ9bQN8v Q2blZhkfhfedBLgaVyw keCstFjiNTyfVAgnN15 6IHRvcDsnPkJpcnRoIE XstDK3FK76XU46eRZvz 5I4tAS5I1LnIXBwjjrr szufgFO6GZXuGVRijE2 6Xw0muUikZj6vESGmSQ X5BMHpxWPqP8HwoJ7jP xJiZWDbMAOgN8JftIEo LMkgZ893ULtmOcV3PUX rjvKmJ4GnKGWwrElaEk Z9h9S0Rj4SH0C4UB49B N80xPZcz4B3mRK9N8Ih NXLajzpljnjqdBI0DQS xBOBtyV04Es7hjUvwXw 2hGFUgEDE9JYSymHWfX 8WuiY4lOkLnJOQzGNAx C8TxzRBlZSxrW734JOf oPmC5KDSdwsNvF3JfNG ExoXxoOgD1h9T7Rg7EO Uk8EK85NA32hGIna2Q2 vWE3M7IyVPXtrlqpbwe joVN7JYBqHXHfoF47Ow 4bbZlnFp6dOAYgGVK8H EEtjCQmV6GuoB6oEsPp AICeTJAzA1PsjSWkTEs kQ220OLwqJpS5PLPhqd PlF2RfGWWteWymJfR8r 3T0Vj6SLLHmWI86DOY7 lIM5PK10DI54X3ScQgg vdGFibGU+PHRhYmxlIH dpZHRoPScxMDAlJyBzd XhyNK5pDl5aWWSkTMSx fRtuuJMnJrBpx6xfFZR nHBubQQ1smUuvA9WcqI I1BQKhn6c2Vn22U58kJ 3JvdXA+CSCscXA2wLI8 iK4mCyJnWvS1NVzdD38 5CxNhqOQdJwpvn6jdl3 hbuCr4DcL4VTRuqcOhl TaaUDY2x2KdZw01C80w IHdpZHRoPSIxNSUiIHZ viTyxja2jmV4rEy4+PG MotWE1wGR3iD9jFyJxW zW6VLfdO793WuBlrKXq Whlwn6wnu6bnhUd7SfT vTQXhbtLjcSkgKOL4e7 TnNn19S6OsuYyor3RzD id0lc31nHBqh2K1vRZ5 R2FyUBYrnhlmxTGhuXh oFV2sJRLaodxzNNBuqD 2iOVJhB5l8MaZqWfC9I CenA7VqszD6XBSqsUNv LLdqZHP9X65su5V0UPC eSXTrFXV3iOR6iY6heD lnbjogbGVmdDsgdmVyd LhqOUpeJRxgH305OUWd vXmjWPBbxU1gIDKjtIU erLqlNX8jIETwvhmrOt jNJe0OMfvnO2FMQ5aNP qPJYB78RN40fZWpq5A5 uLE4C6NqPQYgtelfmgr zuQR5USSyUFHfyV98kS XuHAqqUy7zt3N6j271E ICqGGZomU26Vh6ktCrb YUFwzCAIbT5llofkq8z xxttoRzHiMXYsBDz1XC t2VFEvpYtcRdXmDHZ7X iH3CTX9bAKcvU4bvSfd xwjqxZ9gDmb+MTAvMzE vMTkzOTwvdGQ+PHRkIH X8kXmrOLxjQRNayE3bW VKuR8o8OuAvEqN9MZvz V3YqYOQailqhKc50vO1 lEkMxIrV2MMgkP0Xgjk K0TFXoyFXtXMcvMIF5V 97ce0X7CCAcXCWwAWZ2 zJK4lV7vdVdrhwefkUG mdDsgdmVydGljYWwtYW njJ954VTLszFyzHumbL UxzQZZmZV53HJ51tICa x7E6mKJ2G2SoBYRotne ynovzgIM9GSJvLCTyaX 48qYGjILibDc7qa4S2s 181IROpIYXogM50Zm4x sBbbNDSokRNCfQ7dsld qh9iagtqvPjTvLBJgTH n6QNc3YGXpvNbrIxQuS DV9UbM5CLS4kPPmpH6u gMjsgfebnN5sTxg+RmV wGPedHW65AQ08sUCyb3 V2bRV3W4ZiFIDmmsdxb bqeeMU8WXPjUHHdtO23 tQNdQRwwZh3qy7Z0x16 2ZZPkBICxeI03Qe2piF tbXSWovOWDlC5mrhetd 0cvhaunJvEeIWTmLVc9 BLn1ZIQmuZfaKtBxVYG 4IdD4CIC7yGHflV4zsC iuyjxjpI8pYdg+T3V0c DH5lHHkoBowvTQ+PC90 hc62K0RjEyzeZlc9UYQ tLGM6fQK7lD8uSCWuRG xkz3F1xVD3B0JsjzDzp d2jc2huOSAjZBudF26y vULmr2H9JRGbwSK4QPE eyGqcBmEhmD54Nmt+PG GfsPyag7TcXahcq9hsu 9hmgFz3PdMaCRWfooKc jJnpBCF7u0MeGz03O28 sIHdpZHRoPSIzMCUiIH YlmFpwte3zwM4yBf4+P FPrqGI2nAU9bN0eLsVz NbB3IVatY349FaHzdZJ bUqlwe9qos0qkkPf1Wp CzSIQgapJgzSyuWQL2a 3SaJv14G9GjgIxhl8Jv Ika9ve51dLZoo2E2uQJ 3N6VeNEAiecwyeBDgnK gkZU2hVCPepioaPBNzo U2aNUYsF9a9RuEvKoH7 UWxkY1GjifI8FHDmkPZ lPOJfkFDMfZ5yxupgy9 tfcrcdUmLrQWSiDQb3G Va6WOJeiWosJfMkLIG2 HwJ9CZN0nWJigH1xrNj pyxjkyM6vKyg+UGh5c2 qazBQqCG9laGT9DK02Q Z84gCQbl1G0xQK6M0Ir EGFzrdbydifapSM4RVI bJRKneU03Wy6glQicLa 7xEEDcZDI1CUSonADgS 0SzaB1cTqKyAJXfKLQg M7VqiLAdNIrrD060PPd yFrC7HLCwdgMnW5UdPK TbtPofAyC8k9I5Lr4AV Y10QT82CJ31nABrk2E9 oEC5F9RgFLCqzcwezoe vqXC9UFPyKRSibY42Cf 8mcRxwIz3mJSByLHQ1P QZuqFWjD1VqmS4tSlTl MIMpBYPkT4CieUFbNZv kB103MJerWpG0PDRuic OrP4MxYOFuuMtvIzN8n 1G7Bx4HYw02RN00QC09 tGLvq4H4dEM2A3SzXUT aepacmsqiwJT2MKHdUM KmxH65Un4zcIhpQs8dI LYmZIW8AJPtyBRsT9Gz xX7kKtAnMLRzTQWcO0E haYAyKDppR994NJewIz R7VMNdwpIhA2DsPDLts NppMbJ4o9P1Cs0HVJqo liw8X8AjWobqrEO+PC9 6PQTtDF34lOWvwOApe1 sufLm9BiEyDFOoZAZ1u LxcYVjzm1PvCNVjB17y bGFw (more content not included)... Normal [facility] Consent for Treatmenton 04-23 Consent for Treatment [id number]#1.00CD:127 Normal [facility] Heart and Vascular Office/Cl inic Noteon 05-11-2021 Heart and Vascular Office/Clinic Note History of Present Illness Lola Andino is an 80 year old female without significant cardiac history. She presented to [facility] 04/19/21 with complaints of chest pain. [...] She is going to go to a party plan salesperson in the next week or so to [...] [2] NM Myocardial Spect Rest/Stress 1 Day; Kip SINHA, Tristan Ashley 04/30/2021 16:28 EDT Normal [facility] Comment on above: Result Comment: Elec tronically Signed By: Sawyer SINHA, Nico Long.adwoa\Date and Time Signed: 05/11/21 11:15 EDT Stress EKG Tracingson 2020 Stress EKG Tracings [id number]#1.00CD:127 Normal [facility] NM Myocardial Spect Rest/Str ess [...] Stress Dose (mCi Tc99M Cardiolite): 29.9 Normal [facility] Coding Summary.on 04-23-2021 Coding Summary. CD:[id number] HCv4wGj+PGhlYWQ+PE1 QZOQgG88wtPFpvO7SG1 uWVQ1GJAOOTTVRCD5GM F5yxFW0IStzY0HwdqDw YgxgnILlBO90GPh1UIT 3wPmwOJhynQ7fmNXkR4 o9AzFbHM86cS20UBpxZ XMcRlU3OgVdrvmaxLQl O7maKaAypRZjNew+PHR hYmxlIHdpZHRoPScxMD BoIdAhgBagFQ9bLo4aX GVyLWNvbGxhcHNlOiBj h1bhMSEzHXegGG8reFr kX3VtuZE2XEKyu9v6Gu 48dHI+ULJyNDF7hSkrT Qage247UgKgg7xqIQU3 cAMcFEayMMB3M88gl7O 6SDHmYCNjSGB5bFG3aT 9fgLuvdksoX4ZnjVZqC dT0BYS8oMJzmW0rdBlc xmormF2eSem+A33VSX3 MNYRTXU9RRgf3A0EtMk wvdHI+LS29CFHzMO83x FPryCJjn3fyvDz2OvZb HJIsLKN7aWrzJHmur3T oETMxS63vcPYzs7W3NZ PadHxdgBSkSdZofUY2v Y6gCYxdxccbd8eayywp Jkepo2cfby23jX55L77 dPAiiDXLoUQX3LNToTS KhkFmyfl9pfL3zFz4+I Uong0evv0runVc7MaXl GJLjplLspLvrBHA3a7W wSh00F7YlcTvxt3ArLh m3pv56wIHzq2Z9gBC9M OhnDGCljX2aOOagAyR1 LRPoSmAmkS77dZPlOSr hBr5seDqpqHseGV6bHB IruulmGGLjjR7oHUHxl GEfpYddDT8lFERifpxu v772DpWnCVO6WFDpiLM bL4HtrC6wUyIfMVXrVV PdT9FmhGBgUSxlP723S YkgItZ2LPSfseSzD6Jx UOTccDbxSjW0d6L4Jm7 Me5HcppwkVVN1TRuoMG S0RwVmYvNyPlO5Y1UgT hq2UBSagWusZR0uY6Ns QJVvfixdlxhcfIL2FQP oMZQooC72eTOjORcdJj 4pt8M4d525KWDjBHXfy K03Dd3gnNajCHKhsUBI cA3zusivl2uatoswDfR nOMLzUVv0QJv4CJBqcD smMoJkJAN8OkY2LYL7f PJwaZ6piGxqovvdaD3m Oyc+U39cvU7sIRK7BXK 8dfxlSPBksxKtMO98TJ 85Z5TpEjukvCHrsJE+P IEhdcOogHvdDI2gZgZf b6mgi9EkAZgwP6MfQJG sZHzzIso5CRFeRHK7gQ X3cN9lTOBaKFvuf6W4h XU2E2SbfwLkbj8kp0je GORxJQsnM92wzDMrc3I 7GOQeeXG8KOTcsMoxUd VbbX36Nzz+PGNvbGdyb 7GmOuqzc2kxh1csfEx5 IjMwJSIgdmFsaWduPSJ 4g4NlBw46K30xHAhzQZ RoPSIxNSUiIHZhbGlnb d6noA2qLq1+PGNvbCB3 fZE9xV6sGSUjYgQ7MGi eH847HxDyuVTiAhhpc7 aau2bzsQc8UyFlHRXmt jMzeTxhZGK5x9EgIa55 V54fJIpaTKGsPRDtRPA zEPIfqBkshk8yxK0vYl 8+QE2dd3ffjx98wO87s HI+ZJSwCYN2zZmtUIec BCBigW4bWMqbHnS8QGC bExVxkK86kJLdHVebIx 7beFonoEbePV7qKBNxb ztnz340AjThu7lzCPLg pSSoIVdsZGM9C38nu5W 2GXFxDCZfJOX8zWP1bA 1hbGlnbjogbGVmdDsgd qOcnPnvPSqcKPnrW546 IHRvcDsnPlBhdGllbnQ hGcNcFRk8T9WuXhh9BB UaxSqhQL9ocAZhMLqiM g8jkLypvAuhOA2iPDKw recks601ArUad9wjTXM voLNwIDojMOQ9L46lg5 B5XBUzXMKbXYD6wXU4e Z7ooVsailtnyJOeiPvw lsCtjSbkWYbhGLhmV62 6IHRvcDsnPkJpcnRoIE NveNC5PG54XD54rJEsg 6M5wSP4B5YuTQVlzxrv gsllbTH0ZXUwCUHktJ9 6Na1ecWwyAr1hBVNjIU S8OBKbyDWxO9ThkC3nB uBcMKBeZQHkU9PmhARw NKibV795PTnmIvA2SSB fhpCmM9WgDYDbcDkaYd C3m3F9Td1CQ7Q1EE11E D44fEJvq2W5lDT5K9Ow UKRzxpdtczmnmUP6ONX cJGGhfI19Kt1onFhxVn 0cRTLwTQU3PEYckZStR 1HrjA0eEfMsWWGaPTZu N2ZzsWAwPXnxQ514VYq tBlU0DHMkxtJpG1FsUR SvcZxhUnL8h6L0Jf6GD Gi4JN57WZ98uDPkt3D2 eEN8R9PcXFGqpvyigmb rsWY3DMDqTCDawY61Zf 6leLheRb0kOUQaDPM4B SBwvXRyL5BarE1yHyNv ZSIiKNThS1QkxDLhHEh dT265TYalEhW6EVWitc NgD3ZeSYFzsLsxKiY5z 9P9Vc6SVVWjCY21CUC5 aER0AF39MN30I1BsEbv vdGFibGU+PHRhYmxlIH dpZHRoPScxMDAlJyBzd QbjKK7tUx9nXEDoVGSk iUydvUEcEpVvn3xwHNP fMWyhTK9twHyqU3QvkS X0ENPot9a7Kk30L08vL 3JvdXA+FXJqrYG8fRB9 eC9oDgUhUtG2QTglC82 2AfVbtPDxTtwub1lpb4 bnzGe7JdO7CZXzwbErq OwqYBW0u3LfNw40Q19f IHdpZHRoPSIxNSUiIHZ bdVcazq7woK8mAm5+PG LtiBR2cTG1dD8yMyIdA uB6JBjbY245NpFgyKIe Mfgml4bzg5tvpWv1YuB dCNPxjwZfoBnfKUN5w4 SzEt08S7JvpLsoj9OvA sd7fd01qNHca5D3mLS3 X8GvMAIojkrwnGBjhGg zSI2aVFVxbsuwRZVygI 6wPFGpK6w6YmGcAaF1J QhjQ9ErhgE2VCQdbPXw FOthMYM6O77rw9K4BCP cZZYoAUQ2rRM7tR6maV lnbjogbGVmdDsgdmVyd CrmGSknMCeuL406DYYr xJpnTTUpzK7jIGJarTT eqNduNJ8gULWgxganPi pRSi7WMwrmU8HBK3zCF kYTSX92DG12sJKcd6K8 fFM6O5CvQEOhbhoijhn egLV9OXHiDYIilC46cB YvEPcoFv8au2F8w939N MEnKTMcrU92Ee3csKld BMYbxXAPkI6dbuapy3d xbsxaKkZwPFMxBHn2VI b4KHGxhNiuIpZtTBK4L yS2IVT2vIJesN7weKbo achmtN3aSrl+MTAvMzE vMTkzOTwvdGQ+PHRkIH W6mKnhLWpyFJHsyZ6bK XTwM1t2VaDoSpD9IXzj C9NkSWYbhdqwPh15kE7 zYgBrRvH6UZhsI2Dvyc P1UXHniAGtOWvwCXO4Y 99fv6R4REMjOIYzQZR0 vDG4nE6tlSoltvvomCA mdDsgdmVydGljYWwtYW mpU005FOUibDnlCbnyV HyqEAOeTH06ZA00dQSf d2M1sZJ2Z1IcBEJmbwu wxigogAT6ZXGyZIZhlN 68xEPmZTzhLa1us0Y3n 267ZGLkLDTqdZ85Wi5c oDzqDJMhyQXPaB6bxzp lo9xmsogkEcXmPAMdCR i5PQt8NAXjwKdtXxQhS JC1YzD1FNW7rHCaaN2t nSnscwviuX2cMgt+RmV dIOysYI67BN83iROcr3 I1cIB1V2GjGLHlmyoyr qgqlIC7NNJjDYVihB05 iPOiKZjlZb8hm9C6c66 1DZSzGCVpoI15Ij8qfP azVMVitHPPuO2nirlwa 0odqhsoKjYfACTyOIc6 YAs8XOCgzWwoLeLzTQE 1PvQ7QRL6oMNxiT1smW jyhekgnW5xAsv+T2JzZ XP8ISQtt411D2KbVyxf dHI+WN84BQVsXK86fZS ahNFph6abjNa7JjNrLT NsBJW6hHtwVUqrz5QiX PDpG93iyBYyh2X3LTZq nTbfzJAtWcPniDY7rQ9 iPVdckgsri0kcjynhHt bpb4zdcq79oQ81S30wY HdpZHRoPSIzMCUiIHZh dTvjxy6txB0pMf2+PGN ofLZ1sSD3zJ1xEcAlOf T9IMyaM215PoMnwRSvY wwds7njo2llnAf4ZgVw ESMumiReuOduWTT7m1K fMr18L14eVPmtWKFmSN NdKPKaSAXscXybpg6rs G9wIi8+MK7tr4tlra23 zQ84cOZ+ATPkGET4iHn hQXocSWDuwC0fKKoeRg U2RZIgQdFnkT69eUVsG FvlUa6ibUnnxHtpTY8y POEzyhzro510MsCkr6v iMKInqPJbZUawKMF1C8 9yb6W1WOGbEJUjXSV1h KE4nG0zyTmnwojvyXQs dDsgdmVydGljYWwtYWx pW822EEWkrQytYnUlkI NzD3vibuIWIL7vSsiwo GQ+DQQbUPM6qZlfNUmy RPMemA2zMNTjR8l1MoC xOvO1SPnzO5TwgeZ0IR YuxDJdCHVqlDSEhW4sv jfox1nafkgjCyBxYDBt XMe9PYd3MCFvdZubKiS iAVY3DvR9RXA5pCRmkD 0gjFotfbnalG3uUgh+R klOOjwvdGQ+PHRkIHN0 tXxhPXcrCNEjuQ1dXMW zH8n3HtJiMjE2KEmpM5 GgobJ9AMTeeOKdMBEpx CRIgR0kvrhzt8hdkkxf NnCsXMImSXm6MCg0OTG efQbtRgUjRHZ9IoY6PJ H1fSNqnO7ubSmsgfwau G9wOyc+TVJOOjwvdGQ+ NHHbHON3gJolXCguYOS nbR3vMVEfI9n0KhGtBd V6VIpiL9SdqrC2DFIuc CWaOBGzkOKNbV9gjgdb l7bzbfdbQoNbWOUuHRl 6LFj5YVUioGxrZsUfFM M2RpT8YXE2jZClmR7lk IgdtqovpO7wDge+UGF5 QUX6LT26FD40D4BmPez vdGFibGU+PHRhYmxlIH dpZHRoPScxMDAlJyBzd JxlAO9qVc6cTFKhYHUy bGxh (more content not included)... Normal [facility] Interdisciplinary Note - Eric e Manageron 04-23-2021 Interdisciplinary Note - Storyboard Artist ED: Dangelo H/P: Susanne Profit: partial PIS (OBS/IN): OBS 04/19/20211920, TF: 04/19 1850 Chgs: D/C: VTE: MCG: +OBS/CP, -IP/CP Tele-yes ICU: <2mn-yes Insurance: [employer] PAT (tests): no imaging at this time Readmit: no MM: OBS: ED: Dangelo H/P: Susanne Profit: done PIS (OBS/IN): OBS 04/19/20211920, TF: 04/19 1850 Chgs: done D/C: done VTE: na MCG: +OBS/CP, -IP/CP Tele-yes ICU: na <2mn-yes Insurance: [employer] PAT (tests): no imaging at this time Readmit: no MM: done OBS: done Normal [facility] Comment on above: Result Comment: Elec tronically Signed By: Scott LEZAMA, Avani Ventura\.adwoa\Date and Time Signed: 04/23/21 15:59 EDT BMPon 04-20-2021 Anion gap [Moles/Vol] 15 mmol/L Normal 6-16 [facility] Comment on above: Performed By: #### 2 [id number], [id number] #### [facility] [address] [place] [address] Calcium [Mass/Vol] 9.2 mg/dL Normal 8.9-11.1 [facility] Comment on above: Performed By: #### 2 576013, [id number] #### [facility] [address] [place] [address] Chloride [Moles/Vol] 106 mmol/L Normal 101-111 [facility] Comment on above: Performed By: #### 2 558208, [id number] #### [facility] [address] [place] [address] CO2 [Moles/Vol] 25 mmol/L Normal 21-[address] [facility] Comment on above: Performed By: #### 2 816071, [id number] #### [facility] [address] [place] [address] Creatinine [Mass/Vol] 0.6 mg/dL Normal 0.5-1.3 [facility] Comment on above: Performed By: #### 2 226954, [id number] #### [facility] [address] [place] [address] Glucose [Mass/Vol] 124 mg/dL Normal 55-199 [facility] Comment on above: Result Comment: If t his glucose result represents a fasting glucose, interpretation should refer to the following reference range: 55-99 mg/dL Performed By: #### 2 884948, [id number] #### [facility] [address] [place] [address] Potassium [Moles/Vol] 3.7 mmol/L Normal 3.5-5.3 [facility] Comment on above: Performed By: #### 2 317131, [id number] #### [facility] [address] [place] [address] Sodium [Moles/Vol] 142 mmol/L Normal 135-145 [facility] Comment on above: Performed By: #### 2 603538, [id number] #### [facility] [address] [place] [address] Urea nitrogen [Mass/Vol] 15 mg/dL Normal 5-21 [facility] Comment on above: Performed By: #### 2 377373, [id number] #### [facility] [address] [place] [address] Urea nitrogen/Creatinine [Mass ratio] 25 No Units High 10-20 [facility] Comment on above: Performed By: #### 2 102706, [id number] #### [facility] [address] [place] [address] Cardiology Progress Noteon 0 04-20-2021 Cardiology Progress Note Cardiology Consult Received- full note to follow Reason for consult- Chest Pain Lola Andino is an 80 year old female without significant cardiac history. She presented to [facility] 04/19/21 with complaints of chest pain. [...] seen and examined with Dr. Shin. Normal [facility] Comment on above: Result Comment: [...] History Heart failure: Father and Brother. Normal [facility] Comment on above: Result Comment: Elec tronically Signed By: Kip SINHA, Tristan Ashley\.br\Date and Time Signed: 04/20/21 16:31 EDT Discharge Instructionson Discharge Instructions [id number]#1.00CD:127 Normal [facility] Inpatient Clinical Summaryon 04-20-2021 Inpatient Clinical Summary [place] [address] Clinical Summary Person Information: Name: LOLA ANDINO Age: 80 Years : 1940 Sex: Female PCP: LG OVIEDO DO Marital Status: Unknown Race: White Ethnicity: Non- or Language: Togolese Visit Id: Visit Reason: Shortness of breath; Chest pain; SOB, CHEST PAIN Speciality: Acuity: Enc Type: Observation Med Service: Medical Arrival: 04/19/2021 14:36:15 Discharge: 04/20/2021 12:33:00 Dispo Type: Home (Routine DC) Address: [address] [place] [phone] Provider Notes: Diagnosis: 1:Chest pain; 2:Hypertension; 3:DVT [...] Physician: Follow up: With: Address: When: Franklin Landry[address] [address] [phone] [facility] (1) Within 1 to 2 weeks Comments: follow up for pulmonary nodule With: Address: When: Tristan Shin [address] [place] [phone] Business (1) Within 1 week Comments: Call for followup appointment With: Address: When: LG OVIEDO [address] [place] [id number] Business (1) 04/24/2021 3:00 PM Patient Education Information: Hypertension, Adult lisinopril Normal [facility] Inpatient Patient Summaryon 04-20-2021 Inpatient Patient Summary [address] [address] Patient Discharge Instructions PERSON INFORMATION Name: LOLA ANDINO Date of : 1940 Current Date: 04/20/2021 13:08:27 PHYSICIANS Admitting Physician: Pola GEE MD Primary Care Physician: LG OVIEDO DO PCP Comment: Discharge Diagnosis: 1:Chest pain; 2:Hypertension; 3:DVT prophylaxis Condition at Discharge: Improved SINALOLA has been given the following list of [...] None Follow up: With: Address: When: Franklin Landry[address] [phone] [facility] (1) Within 1 to 2 weeks Comments: follow up for pulmonary nodule With: Address: When: Tristan Escudero[address] [address] Business (1) Within 1 week Comments: Call for followup appointment With: Address: When: LG OVIEDO [facility] [place] [address] Business (1) 04/24/2021 3:00 PM In the [...] Mouth every day. Refills: 0. Pharmacy Information: [facility] Comment: PATIENT EDUCATION INFORMATION Instructions: Hypertension, Adult [...] of breath. (more content not included)... Normal [facility] Interdisciplinary Note - Eric e Manageron 04-20-2021 Interdisciplinary Note - Storyboard Artist Pt is awake and alert in bed, [...] per nursing. Anticipate DC home today 04/20. [facility] Comment on above: Result Comment: Elec tronically Signed By: Miguel LEZAMA, Yuli\.adwoa\Date and Time Signed: 04/20/21 10:09 EDT Interdisciplinary Note - Soc ial Workeron 04-20-2021 Interdisciplinary Note - Executive Associate Computer generated consult for advanced directives received. This SW spoke with the patient who states that she already has HCPOA and LW completed. This SW requested a copy when she or family is able to bring in so that it can be scanned into her EMR. Patient is very appreciative for checking with her. SW will remain available. Normal [facility] Message from Medicareon 03-24 Message from Medicare [id number]#1.00CD:127 Normal [facility] Monitor Recordon 04-20-2021 Monitor Record [id number] 302#1.00CD:127 Normal [facility] Monitor Record [id number]#1.00CD:127 Normal [facility] Pre-Certification Formon Pre-Certification Form [id number]#1.00CD:127 Normal [facility] Troponin 9 Hr.on 04-20-2021 Troponin I.cardiac [Mass/Vol] 17.60 pg/mL Normal 10.10-27.10 [facility] Comment on above: Result Comment: The 95% CI (Confidence Interval) PPV (Positive Predictive Value) for myocardial infarction in females is 38 pg/mL, in males 51 pg/mL. The results should be used in conjunction with clinical conditions of myocardial infarction. (Access High Sensitivity Troponin I Instructions For Use, [place], March 2018) Performed By: #### 2 123106, [id number] #### [facility] [address] [place] [address] UA With Cult Reflexon 2020 Bacteria LM Ql (Urine sed) TRACE Normal Trace [facility] Comment on above: Performed By: #### 2 168936, [id number] #### [facility] [address] [place] [address] Bilirubin Ql (U) Negative Normal Negative [facility] Comment on above: Performed By: #### 2 109276, [id number] #### [facility] [address] [place] [address] Clarity (U) SL CLOUDY Invalid Interpretation Code [facility] Comment on above: Performed By: #### 2 919863, [id number] #### [facility] [address] [place] [address] Color (U) YELLOW Normal Yellow [facility] Comment on above: Performed By: #### 2 083551, [id number] #### [facility] [address] [place] [address] Epithelial cells.squamous LM.HPF (Urine sed) [#/Area] 0-2 Normal 0-2 [facility] Comment on above: Performed By: #### 2 250878, [id number] #### [facility] [address] [place] [id number] Glucose Test strip (U) [Mass/Vol] Negative Normal Negative [facility] Comment on above: Performed By: #### 2 059531, [id number] #### [facility] [address] [place] [address] Hemoglobin Ql (U) TRACE Abnormal Negative [facility] Comment on above: Performed By: #### 2 263906, [id number] #### [facility] [address] [place] [address] Ketones (U) [Mass/Vol] Negative Normal Negative [facility] Comment on above: Performed By: #### 2 713562, [id number] #### [facility] [address] [place] [address] [place].plasma/Lithiu m.RBC (Bld) [Mass ratio] 0-3 Normal 0-3 [facility] Comment on above: Performed By: #### 2 084597, [id number] #### [facility] [address] [place] [address] Mucus Ql (Urine sed) 1+ Normal [facility] Comment on above: Performed By: #### 2 109923, [id number] #### [facility] [address] [place] [address] Nitrite Ql (U) Negative Normal Negative [facility] Comment on above: Performed By: #### 2 199725, [id number] #### [facility] [address] [place] [address] pH (U) 6.5 [pH] Invalid Interpretation Code 5.0-9.0 [facility] Comment on above: Performed By: #### 2 942276, [id number] #### [facility] [address] [place] [address] Protein (U) [Mass/Vol] Negative Normal Negative [facility] Comment on above: Performed By: #### 2 845306, [id number] #### [facility] [address] [place] [address] Specific gravity (U) [Rel density] 1.020 Invalid Interpretation Code 1.005-1.030 [facility] Comment on above: Performed By: #### 2 547465, [id number] #### [facility] [address] [place], [place] [address] Type of Urine collection method Clean Catch Normal [facility] Comment on above: Performed By: #### 2 333188, [id number] #### [facility] [address] [place] [address] Urobilinogen Qn (U) 0.2 {Raji'U}/dL Normal 0.0-1.0 [facility] Comment on above: Performed By: #### 2 313952, [id number] #### [facility] [address] [place] [address] WBC Auto Ql (U) Negative Normal Negative [facility] Comment on above: Performed By: #### 2 565989, [id number] #### [facility] [address] [place] [address] WBC LM.HPF (Urine sed) [#/Area] 0-5 Normal 0-5 [facility] Comment on above: Performed By: #### 2 041285, [id number] #### [facility] [address] [place] [address] XR Chest Single Viewon 04-20 XR Chest [...] M.D. Transcribed by: ARBEN Technologist: MAYE, Noemy [facility] eGFRon 04-20-2021 GFR/1.73 sq M.predicted among blacks MDRD (S/P/Bld) [Vol rate/Area] mL/min/{1.73_m2} Normal >=59 [facility] Comment on above: Order Comment: Order added by Discern Expert. Result Comment: eGFR is race adjusted. AA=. Performed By: #### 2 519932, [id number] #### [facility] [address] [place] [address] GFR/1.73 sq M.predicted among non-blacks MDRD (S/P/Bld) [Vol rate/Area] mL/min/{1.73_m2} Normal >=59 [facility] Comment on above: Order Comment: Order added by Discern Expert. Result Comment: Hardware Developer brady kidney disease could be indicated at eGFR's of less than 60 mL/min/1.73m2. Kidney failure is indicated at less than 15 mL/min/1.73m2. Performed By: #### 2 [id number], [id number] #### [facility] [address] [place] [address] Auto Diffon 04-19-2021 Basophils/100 WBC (Bld) 0.8 % Normal 0.0-2.0 [facility] Comment on above: Order Comment: Order Added by Discern Expert. Performed By: #### 2 788392, 9350481, 5844507, 97562347, 11405522, 88395063, 05787538 ####[facility] [address] [place] [address] Basophils/Leukocytes Auto (Bld) [Pure # fraction] 0.0 E9/L Normal 0.0-0.2 [facility] Comment on above: Order Comment: Order Added by Discern Expert. Performed By: #### 2 546580, 9841782, 1941166, 04409605, 65587126, 16223717, 56888064 ####[address] [place] [address] Eosinophils/100 WBC (Bld) 1.2 % Normal 0.0-8.0 [facility] Comment on above: Order Comment: Order Added by Discern Expert. Performed By: #### 2 772596, 7638307, 9113894, 40087039, 57642578, 79282378, 69957267 ####[facility] [address] [place] [address] Eosinophils/Leukocyte s Auto (Bld) [Pure # fraction] 0.1 E9/L Normal 0.0-0.5 [facility] Comment on above: Order Comment: Order Added by Discern Expert. Performed By: #### 2 510061, 9296746, 0467283, 33612560, 44701825, 94533749, 37117343 ####[address] [place] [address] Lymphocytes/100 WBC (Bld) 23.5 % Normal 14.0-50.0 [facility] Comment on above: Order Comment: Order Added by Discern Expert. Performed By: #### 2 237200, 9555088, 5594622, 62408833, 89751905, 42997996, 84684527 ####[address] [place] [address] Lymphocytes/Leukocyte s Auto (Bld) [Pure # fraction] 1.0 E9/L Normal 1.0-4.0 [facility] Comment on above: Order Comment: Order Added by Discern Expert. Performed By: #### 2 481441, 1703257, 0481592, 64357344, 76856505, 61857673, 83848905 ####[address] [address] Monocytes/100 WBC (Bld) 8.8 % Normal 4.0-14.0 [facility] Comment on above: Order Comment: Order Added by Tamy Expert. Performed By: #### 2 626691, 5393550, 2533607, 76581798, 24166679, 66945504, 29140676 ####[address] [address] Monocytes/Leukocytes Auto (Bld) [Pure # fraction] 0.4 E9/L Normal 0.2-1.0 [facility] Comment on above: Order Comment: Order Added by Tamy Expert. Performed By: #### 2 378744, 1243097, 5863510, 64352854, 56108089, 21756158, 72597809 ####[address] [place] [address] Neutrophils/100 WBC (Bld) 65.7 % Normal 36.0-75.0 [facility] Comment on above: Order Comment: Order Added by Discern Expert. Performed By: #### 2 555839, 7085219, 7007416, 52389035, 38868968, 87094166, 78627259 ####[address] [place] [address] Neutrophils/Leukocyte s Auto (Bld) [Pure # fraction] 2.9 E9/L Normal 2.0-7.5 [facility] Comment on above: Order Comment: Order Added by Discern Expert. Performed By: #### 2 192283, 3278144, 2257706, 61499305, 46673646, 44149601, 38446319 ####[facility] [address] [place] [address] BMPon 04-19-2021 Creatinine [Mass/Vol] 0.9 mg/dL Normal 0.5-1.3 [facility] Comment on above: Performed By: #### 2 615662, 8428760, 7576784, 51682747, 87073278, 26313006, 95215643 ####[facility] [address] [place] [address] Urea nitrogen [Mass/Vol] 18 mg/dL Normal 5-21 [facility] Comment on above: Performed By: #### 2 780725, 3185322, 1729757, 26390149, 37044006, 16508418, 47337556 ####[facility] [address] [place] [address] Urea nitrogen/Creatinine [Mass ratio] 20 No Units Normal 10-20 [facility] Comment on above: Performed By: #### 2 669571, 2593624, 6136167, 95039759, 79830543, 07667536, 08320531 ####[facility] [address] [place] [address] Anion gap [Moles/Vol] 12 mmol/L Normal 6-16 [facility] Comment on above: Performed By: #### 2 375609, 7644969, 0305171, 17674420, 73227816, 88495155, 28680875 ####[facility] [address] [place] [address] Calcium [Mass/Vol] 9.2 mg/dL Normal 8.9-11.1 [facility] Comment on above: Performed By: #### 2 503242, 4228287, 2164526, 40962493, 05191248, 53969716, 23056451 ####[facility] [address] [place] [address] Chloride [Moles/Vol] 102 mmol/L Normal 101-111 [facility] Comment on above: Performed By: #### 2 798615, 1869259, 8417136, 43442691, 27474174, 86145255, 23004201 ####[facility] [address] [place] [address] CO2 [Moles/Vol] 27 mmol/L Normal 21-[address] [facility] Comment on above: Performed By: #### 2 800269, 7981280, 7021252, 98857341, 52495045, 21625156, 80803902 ####[facility] [address] [place] [address] Glucose [Mass/Vol] 115 mg/dL Normal 55-199 [facility] Comment on above: Result Comment: If t his glucose result represents a fasting glucose, interpretation should refer to the following reference range: 55-99 mg/dL Performed By: #### 2 999189, 4847474, 0671897, 94892345, 47156651, 49161017, 00025387 ####[facility] [address] [place] [address] Potassium [Moles/Vol] 3.4 mmol/L Low 3.5-5.3 [facility] Comment on above: Performed By: #### 2 796035, 3973698, 1006408, 66730839, 48463507, 45688462, 37402693 ####[facility] [address] [place] [address] Sodium [Moles/Vol] 138 mmol/L Normal 135-145 [facility] Comment on above: Performed By: #### 2 451010, 6710053, 0284902, 51789009, 75664484, 40165900, 10361451 ####[facility] [address] [place] [address] BNPon 04-19-2021 Natriuretic peptide B (Bld) [Mass/Vol] 76 pg/mL Normal 5-80 [facility] Comment on above: Performed By: #### 2 333798, 1984606, 3843007, 80944823, 70823204, 39897298, 91888673 ####[facility] [address] [place] [address] CBC w/ Auto Diffon Erythrocyte distribution width (RBC) [Ratio] 13.1 % Normal 10.9-14.2 [facility] Comment on above: Performed By: #### 2 896097, 6778800, 2218422, 24324863, 18258565, 98538319, 09997966 ####[address] [place] [address] Hematocrit (Bld) [Volume fraction] 36.6 % Normal 34.0-46.0 [facility] Comment on above: Performed By: #### 2 655329, 6190304, 5884543, 57767539, 14770198, 43585317, 32442187 ####[facility] [address] [place] [address] Hemoglobin (Bld) [Mass/Vol] 12.5 g/dL Normal 12.0-16.0 [facility] Comment on above: Performed By: #### 2 494238, 3486693, 9942011, 54951657, 92038828, 50102482, 48627041 ####[facility] [address] [place] [address] MCH (RBC) [Entitic mass] 33.0 pg Normal 27.0-34.0 [facility] Comment on above: Performed By: #### 2 482682, 9758393, 9712986, 11752661, 59297171, 49778109, 70812775 ####[address] [place] [address] MCHC (RBC) [Mass/Vol] 34.0 g/dL Normal 31.4-36.0 [facility] Comment on above: Performed By: #### 2 982359, 1474796, 1926771, 04877000, 19066211, 45583343, 26577166 ####[address] [place] [address] MCV (RBC) [Entitic vol] 97.2 fL Normal 80.0-100.0 [facility] Comment on above: Performed By: #### 2 427803, 0058797, 2082157, 69109966, 01599227, 73042481, 77497666 ####[address] [address] Platelet mean volume (Bld) [Entitic vol] 9.5 fL Normal 6.4-10.8 [facility] Comment on above: Performed By: #### 2 623846, 9454058, 7753354, 78541764, 43802157, 03117318, 98140809 ####[address] [address] Platelets (Bld) [#/Vol] 277.0 E9/L Normal 150.0-500.0 [facility] Comment on above: Performed By: #### 2 422679, 4232401, 4117377, 50800214, 17730353, 80325186, 29435572 ####[address] [address] RBC (Bld) [#/Vol] 3.8 E12/L Low 4.3-5.9 [facility] Comment on above: Performed By: #### 2 530903, 8293680, 1030769, 64544403, 83164642, 42361644, 16914688 ####[address] [address] WBC corrected for nucl RBC Auto (Bld) [#/Vol] 4.4 E9/L Normal 4.0-11.0 [facility] Comment on above: Performed By: #### 2 987147, 5100782, 2676531, 94110089, 33730488, 84652302, 08891077 ####[facility] [address] [place] [address] Consent for Treatmenton 03-23 Consent for Treatment [id number] Normal [facility] ED Clinical Summaryon 2020 ED Clinical Summary [address] [address] ED Clinical Summary Person Information Name: LOLA ANDINO [place] Age: 80 Years : 1940 Sex: Female Language: Togolese PCP: LG OVIEDO DO Marital Status: Unknown Visit Id: Visit Reason: Shortness of breath; Chest pain; CHEST PAIN Speciality: Acuity: 2 Enc Type: Emergency Med Service: Emergency Arrival: 04/19/2021 14:36:15 Discharge: LOS: 000 04:12 Checkin: 04/19/2021 14:36:15 Checkout: 04/19/2021 18:48:10 Dispo Type: Admitted as IP to this [facility] EVENTS: Event Name Event Status Request Date/Time [...] 04/19/2021 18:48:10 04/19/2021 18:48:10 04/19/2021 18:48:10 ADDRESS: [facility] [id number] PHYS DOC NOTES: MEDICAL INFORMATION: Prescriptions Given: PATIENT EDUCATION INFORMATION: Instructions: Follow up: DIAGNOSIS: 1:Chest pain; 2:Hypertension Normal [facility] ED Note-Physicianon 04-19-20 ED Note-Physician [...] was treated and evaluated by the Physician Channeling Machine Runner. The attending physician was in the Emergency [...] 14:59:00) Lymph Auto: 23.5 % (04/19/21 14:59:00) Archuleta Auto: 8.8 % (04/19/21 14:59:00) Eos Auto: 1.2 % (04/19/21 14:59:00) Basophil Auto: 0.8 % (04/19/21 14:59:00) Neutro Absolute: 2.9 E9/L (04/19/21 14:59:00) Lymph Absolute: 1 E9/L (04/19/21 14:59:00) Archuleta Absolute: 0.4 E9/L (04/19/21 14:59:00) Eos Absolute: 0.1 E9/L (04/19/21 14:59:00) Basophil Abs (more content not included)... Normal [facility] Comment on above: Result Comment: Elec tronically Signed By: Bailee Pierson PA-C\.br\Date and Time Signed: 04/19/21 18:49 EDT\.br\Electronically Co-Signed By: Flynn Mittal DO\.br\Date and Time Co-Signed: 04/19/21 20:39 EDT ED Patient Education Noteon 04-19-2021 ED Patient Education Note Normal [facility] ED Patient Summaryon ED Patient Summary [address] [address] Patient Discharge Instructions Person Information Name: LOLA ANDINO Age: 80 Years Arrival Date: 04/19/2021 14:36:15 Discharge Diagnosis: 1:Chest pain; 2:Hypertension Primary Care Physician: LG OVIEDO DO Provider Information Primary Provider: Flynn Mittal DO Advanced Carpet Journeyman:Bailee Pierson PA-C The exam and treatment you received in the Emergency Department were for an urgent problem and are not intended as complete care. It is important that you follow up with a doctor, nurse practitioner, or physician?s ward assistant for ongoing care. If your symptoms [...] opioids can be used to help relieve svfremsg-xi-ziaksw pain and are often prescribed following a [...] be struggling with addiction, tell your health animal daycare provider and ask for guidance or call SAMHSA?S National Helpline at 0-282-035-RPVN. v Source: [place] Department of Health and Human Services/Center for Disease Control & Prevention [facility] Medications Given: Medication (more content not included)... Normal [facility] PT & PTTon 04-19-2021 aPTT Coag (PPP) [Time] 34.2 second(s) Normal 25.1-36.5 [facility] Comment on above: Result Comment: Hepa rin therapeutic range (represented by Anti-Factor Xa activity of 0.2 - 0.4 U/mL) corresponds to PTT of 56.6 - 109.0 sec. Performed By: #### 2 573227, [id number] #### [facility] [address] [place] [address] INR Coag (PPP) [Relative time] 1.0 {INR} Invalid Interpretation Code [facility] Comment on above: Result Comment: INR results are specifically intended to assess patients stabilized on long-term Anticoagulation therapy suggested INR?s ?Less Intensive Anticoagulation? 2.0 ? 3.0 Conventional Range 3.0 ? 4.5 Performed By: #### 2 776789, [id number] #### [facility] [address] [place] [address] PT Coag (PPP) [Time] 11.7 second(s) Normal 10.2-12.9 [facility] Comment on above: Performed By: #### 2 477691, [id number] #### [facility] [address] [place] [address] Troponin 0 Hr.on 04-19-2021 Troponin I.cardiac [Mass/Vol] 4.00 pg/mL Low 10.10-27.10 [facility] Comment on above: Result Comment: The 95% CI (Confidence Interval) PPV (Positive Predictive Value) for myocardial infarction in females is 38 pg/mL, in males 51 pg/mL. The results should be used in conjunction with clinical conditions of myocardial infarction. (Access High Sensitivity Troponin I Instructions For Use, [employer] [place], March 2018) Performed By: #### 2 197402, [id number] #### [facility] [address] [place] [address] Troponin 3 Hr.on 04-19-2021 Troponin I.cardiac [Mass/Vol] 24.40 pg/mL Normal 10.10-27.10 [facility] Comment on above: Result Comment: The 95% CI (Confidence Interval) PPV (Positive Predictive Value) for myocardial infarction in females is 38 pg/mL, in males 51 pg/mL. The results should be used in conjunction with clinical conditions of myocardial infarction. (Access High Sensitivity Troponin I Instructions For Use, [employer], March 2018) Performed By: #### 2 026882, [id number] #### [facility] [address] [place] [address] Troponin 6 Hr.on 04-19-2021 Troponin I.cardiac [Mass/Vol] 21.50 pg/mL Normal 10.10-27.10 [facility] Comment on above: Result Comment: The 95% CI (Confidence Interval) PPV (Positive Predictive Value) for myocardial infarction in females is 38 pg/mL, in males 51 pg/mL. The results should be used in conjunction with clinical conditions of myocardial infarction. (DriveK High Sensitivity Troponin I Instructions For Use, [employer], March 2018) Performed By: #### 2 665981, [id number] #### [facility] [address] [place] [address] eGFRon 04-19-2021 GFR/1.73 sq M.predicted among blacks MDRD (S/P/Bld) [Vol rate/Area] mL/min/{1.73_m2} Normal >=59 [facility] Comment on above: Order Comment: Order added by Discern Expert. Result Comment: eGFR is race adjusted. AA=. Performed By: #### 2 107747, 0561442, 0128283, 87357839, 00937022, 65466629, 53679780 ####[facility] [address] [place] [address] GFR/1.73 sq M.predicted among non-blacks MDRD (S/P/Bld) [Vol rate/Area] 60 mL/min/1.73 m2 Normal >=59 [facility] Comment on above: Order Comment: Order added by Discern Expert. Result Comment: Hardware Developer brady kidney disease could be indicated at eGFR's of less than 60 mL/min/1.73m2. Kidney failure is indicated at less than 15 mL/min/1.73m2. Performed By: #### 2 903208, 2005974, 0381896, 96639178, 21092867, 61971298, 41516986 ####[place] [place] [id number] Vital Signs Date Time Vital Sign Value Performing Clinician Facility 01-28-2025 08:32-0400 Body height 153.67 cm [facility] 01-28-2025 08:32-0400 Body mass index (BMI) [Ratio] 25.4 kg/m2 [facility] 01-28-2025 08:32-0400 Body weight 60.04 kg [facility] 01-28-2025 08:32-0400 Diastolic blood pressure 72 mm[Hg] [facility] 01-28-2025 08:32-0400 Heart rate 71 /min [facility] 01-28-2025 08:32-0400 Respiratory rate 12 /min [facility] 01-28-2025 08:32-0400 Systolic blood pressure 165 mm[Hg] [facility] 12-06-2024 10:39-0400 Body height 153.67 cm [facility] 12-06-2024 10:39-0400 Body mass index (BMI) [Ratio] 25.5 kg/m2 [facility] 12-06-2024 10:39-0400 Body weight 60.32 kg [facility] 12-06-2024 10:39-0400 Diastolic blood pressure 94 mm[Hg] [facility] 12-06-2024 10:39-0400 Heart rate 87 /min [facility] 12-06-2024 10:39-0400 Respiratory rate 12 /min [facility] 12-06-2024 10:39-0400 Systolic blood pressure 169 mm[Hg] [facility] 10-30-2024 08:28-0400 Body height 153.67 cm [facility] 10-30-2024 08:28-0400 Body mass index (BMI) [Ratio] 26.2 kg/m2 [facility] 10-30-2024 08:28-0400 Body weight 61.91 kg [facility] 10-30-2024 08:28-0400 Diastolic blood pressure 65 mm[Hg] [facility] 10-30-2024 08:28-0400 Heart rate 55 /min [facility] 10-30-2024 08:28-0400 Respiratory rate 12 /min [facility] 10-30-2024 08:28-0400 SaO2% (BldA) [Mass fraction] 98 % [facility] 10-30-2024 08:28-0400 Systolic blood pressure 130 mm[Hg] [facility] 05-02-2024 09:36-0400 Body height 153.67 cm [facility] 05-02-2024 09:36-0400 Body mass index (BMI) [Ratio] 27.8 kg/m2 [facility] 05-02-2024 09:36-0400 Body weight 65.77 kg [facility] 05-02-2024 09:36-0400 Diastolic blood pressure 73 mm[Hg] [facility] 05-02-2024 09:36-0400 Heart rate 65 /min [facility] 05-02-2024 09:36-0400 Respiratory rate 12 /min [facility] 05-02-2024 09:36-0400 Systolic blood pressure 130 mm[Hg] [facility] 03-22-2024 10:54-0400 Body height 153.67 cm [facility] 03-22-2024 10:54-0400 Body mass index (BMI) [Ratio] 27.6 kg/m2 [facility] 03-22-2024 10:54-0400 Body weight 65.37 kg [facility] 03-22-2024 10:54-0400 Diastolic blood pressure 89 mm[Hg] [facility] 03-22-2024 10:54-0400 Heart rate 71 /min [facility] 03-22-2024 10:54-0400 Respiratory rate 12 /min [facility] 03-22-2024 10:54-0400 Systolic blood pressure 139 mm[Hg] [facility] 02-28-2024 10:32-0400 Body height 153.67 cm [facility] 02-28-2024 10:32-0400 Body mass index (BMI) [Ratio] 27.7 kg/m2 [facility] 02-28-2024 10:32-0400 Body weight 65.48 kg [facility] 02-28-2024 10:32-0400 Diastolic blood pressure 71 mm[Hg] [facility] 02-28-2024 10:32-0400 Heart rate 82 /min [facility] 02-28-2024 10:32-0400 Respiratory rate 12 /min [facility] 02-28-2024 10:32-0400 Systolic blood pressure 180 mm[Hg] [facility] 12-22-2023 11:18-0400 Body height 153.67 cm [facility] 12-22-2023 11:18-0400 Body mass index (BMI) [Ratio] 28.6 kg/m2 [facility] 12-22-2023 11:18-0400 Body temperature 98.4 [degF] [facility] 12-22-2023 11:18-0400 Body weight 67.58 kg [facility] 12-22-2023 11:18-0400 Diastolic blood pressure 82 mm[Hg] [facility] 12-22-2023 11:18-0400 Heart rate 95 /min [facility] 12-22-2023 11:18-0400 SaO2% (BldA) [Mass fraction] 97 % [facility] 12-22-2023 11:18-0400 Systolic blood pressure 156 mm[Hg] [facility] 11-09-2023 14:06-0400 Body height 153.67 cm [facility] 11-09-2023 14:06-0400 Body mass index (BMI) [Ratio] 29.6 kg/m2 [facility] 11-09-2023 14:06-0400 Body weight 69.9 kg [facility] 11-09-2023 14:06-0400 Diastolic blood pressure 94 mm[Hg] [facility] 11-09-2023 14:06-0400 Heart rate 90 /min [facility] 11-09-2023 14:06-0400 Respiratory rate 12 /min [facility] 11-09-2023 14:06-0400 Systolic blood pressure 168 mm[Hg] [facility] 05-10-2023 09:00-0400 Body height 160.02 cm Lg Ball Other [employer] Other 05-10-2023 09:00-0400 Body mass index (BMI) [Ratio] 26.6 kg/m2 Lg Ball Other [employer] Other 05-10-2023 09:00-0400 Body weight 68.13 kg Lg Ball Other [employer] Other 05-10-2023 09:00-0400 Diastolic blood pressure 78 mm[Hg] Lg Ball Other [employer] Other 05-10-2023 09:00-0400 Respiratory rate 12 /min Lg Ball Other [employer] Other 05-10-2023 09:00-0400 Systolic blood pressure 185 mm[Hg] Lg Ball Other [employer] Other 03-25-2023 13:30-0400 Body height 160.02 cm Lg Ball Other [employer] Other 03-25-2023 13:30-0400 Body mass index (BMI) [Ratio] 25.58 kg/m2 Lg Ball Other [employer] Other 03-25-2023 13:30-0400 Body weight 65.5 kg Lg Ball Other [employer] Other 03-25-2023 13:30-0400 Diastolic blood pressure 78 mm[Hg] Lg Ball Other [employer] Other 03-25-2023 13:30-0400 Respiratory rate 12 /min Lg Oviedo Other [employer] Other 03-25-2023 13:30-0400 Systolic blood pressure 187 mm[Hg] Lg Oviedo Other [employer] Other Encounters Encounter Date Encounter Type Care Provider Facility Start: 01-28-2025 End: 01-28-[address] [facility] Work Phone: Start: 01-28-2025 End: 01-28-2025 Patient encounter procedure [facility] Work Phone: Start: 12-06-2024 End: 12-06-2024 Patient encounter procedure [facility] Work Phone: Start: 10-31-2024 Non-patient / [facility] Work [facility]: Start: 10-30-2024 End: 10-30-[address] [facility] Work Phone: Start: 10-30-2024 End: 10-30-2024 Patient encounter procedure [facility] Work Phone: Start: 05-02-2024 End: 05-02-[address] [facility] Work Phone: Start: 05-02-2024 End: 05-02-2024 Patient encounter procedure [facility] Work Phone: Start: 04-27-2024 Non-patient / Non-visit [facility] [employer] Work Phone: Start: 03-22-2024 End: 03-22-[address] [facility] Work Phone: Start: 03-22-2024 End: 03-22-2024 Patient encounter procedure [facility] Work Phone: Start: 02-29-2024 Non-patient / Non-visit [facility] Work Phone: Start: 02-28-2024 End: 02-28-[address] [facility] Work Phone: Start: 02-28-2024 End: 02-28-2024 Patient encounter procedure [facility] Work Phone: Start: 12-28-2023 End: 12-28-[address] [facility] Work Phone: Start: 12-28-2023 End: 12-28-2023 Patient encounter procedure [facility] Work Phone: Start: 12-22-2023 End: 12-22-2023 Patient encounter procedure [facility] Work Phone: Start: 11-09-2023 End: 11-09-[address] [facility] Work Phone: Start: 11-09-2023 End: 11-09-2023 Patient encounter procedure [facility] Work Phone: Start: 10-24-2023 Non-patient / Non-visit [facility] Work Phone: Start: 10-14-2023 End: 10-14-[address] [facility] Work Phone: Start: 10-14-2023 End: 10-14-2023 Patient encounter procedure [facility] Work Phone: Start: 08-23-2023 End: 08-23-2023 ambulatory LORI H TIMMIS Not Available Start: 07-20-2023 End: 07-20-2023 ambulatory LORI H TIMMIS Not Available Start: 06-17-2023 End: 06-17-2023 ambulatory Lg Oviedo Other [facility] [email or web address] Other Start: 06-17-2023 Nursing evaluation o f patient and report [facility]g Ovied[facility] Start: 05-19-2023 End: 05-19-2023 ambulatory Lg Oviedo Other [employer] Other Start: 05-19-2023 Telephone encounter [facility]g Oviedo [facility] Start: 05-17-2023 End: 05-17-2023 ambulatory Lg Oviedo Other [employer] Other Start: 05-17-2023 Telephone encounter Lg Oviedo [facility] Start: 05-12-2023 End: 05-12-2023 ambulatory Lg Oviedo Other [employer] Other Start: 05-12-2023 Telephone encounter Lg Oviedo [facility] Start: 05-10-2023 End: 05-10-2023 ambulatory Lg Oviedo Other [employer] Other Start: 05-10-2023 Patient encounter procedure Lg Oviedo [facility] Start: 04-18-2023 End: 04-18-2023 ambulatory Lg Oviedo Other [employer] Other Start: 04-18-2023 Telephone encounter Lg Oviedo [facility] Start: 04-07-2023 End: 04-07-2023 ambulatory Lg Oviedo Other [employer] Other Start: 04-07-2023 Telephone encounter [facility]g Ball [facility] Start: 04-05-2023 End: 04-05-2023 ambulatory Lg Oviedo Other [employer] Other Start: 04-05-2023 Telephone encounter Lg Ball [facility] Start: 04-01-2023 End: 04-01-2023 ambulatory Lg Ball Other [employer] Other Start: 04-01-2023 Telephone encounter [facility] Start: 03-25-2023 End: 03-25-2023 ambulatory Lg Oviedo Other [employer] Other Start: 03-25-2023 Office outpatient vi sit 15 minutes [facility] Start: 08-10-2022 End: 08-11-[address] LG OVIEDO Facility:[facility] Start: 05-06-2022 End: 05-07-[address] LG OVIEDO Facility:[facility] Start: 04-06-2022 End: 04-07-[address] LG OVIEDO Facility:[facility] Start: 01-06-2022 End: 01-07-[address] LG OVIEDO Facility:[facility] Plan of Treatment Date Care Activity Detail Author Comprehensive metabo lic 2000 panel - Serum or Plasma [facility] enter US scan of abdominal aorta F [facility] XR Chest 2 Views [facility] XR Knee - left 4 Views [facility] Immunizations Immunization Date Immunization Notes Care Provider Fa cility 04-17-2020 pneumococcal polysaccharide vaccine, 23 valent Lg Oviedo Other [facility] 11-28-2017 diphtheria, tetanus toxoids and acellular pertussis vaccine, unspecified formulation Lg Oviedo Other [facility] 10-25-2016 tetanus and diphther ia toxoids, adsorbed, preservative free, for adult use (5 Lf of tetanus toxoid and 2 Lf of diphtheria toxoid) [facility] 10-25-2016 tetanus toxoid, redu tammy diphtheria toxoid, and acellular pertussis vaccine, adsorbed Lg Oviedo Other [facility] [email or web address] Other Payers Date Payer Category Payer Medicare [id number] 1960 Medicare [id number] 1940 Unknown [id number] 2.16.84 [id number] 1940 Unknown [id number] 2.16.84 [id number] 1940 Unknown [id number] 2.16.84 [id number] 1940 Unknown [id number] 2.16.84 [id number] 1940 Unknown [id number] 1940 Unknown [id number] [id number] Medicare Medicare Outpatient [id number] Unknown [id number] 2.1 [id number] Unknown [facility] Health Claims [id number] Social History Date Type Detail Facility Sex Assigned At [employer] Other Start: 1940 Sex Assigned At Female F [facility] Start: 12-22-2023 Tobacco smoking stat [facility] Never smoked tobacco (finding) [facility] Start: 10-30-2024 End: 01-28-2025 Sex Female (finding) [facility] Clinical Notes 11-28-2017 to 10-30-2024 Note Date & Type Note Facility 10-30-2024 Evaluation note Diagnosis Onset Date Resolution Anemia acute October 30 8:26am Bronchiectasis acute October 8:26am Chronic venous insufficiency of lower extremity acute October 30, 2024 8:26am Hypertension acute October 30, 2024 8:26am Primary osteoarthritis of knee acute October 30, 2024 8:26am Pulmonary nodule acute October 302024 8:26am Family history of aortic aneurysm acute December 06, 2024 10:06am Hypertension acute December 06, 2024 10:06am Acute bronchitis due to other specified organisms noneactive December 06, 2024 10:06am [facility] Work Phone: [phone] Evaluation note* Encounter Date Diagnosis Assessment Notes Treatment Notes Treatment Clinical Notes May, Dysuria (ICD-10 - R30.0) [facility] 09-26-2023 Evaluation note* Encounter Date Diagnosis Assessment Notes Treatment Notes Treatment Clinical Notes Apr, Pulmonary nodule (ICD-10 - R91.1) CXR 6mm - 04/2021, CT small nodules - 04/2022 CT small nodules, stable - 04/2023 [facility] 09-19-2023 Evaluation note* Encounter Date Diagnosis [...] medication use (ICD-10 - Z79.899) Check labs [facility] 08-15-2023 Evaluation note* Encounter Date Diagnosis Assessment Notes Treatment Notes Treatment Clinical Notes Mar, Dizziness (ICD-10 - R42) [facility] 08-11-2023 Evaluation note* Encounter Date Diagnosis Assessment Notes Treatment Notes Treatment Clinical Notes Mar, Claustrophobia (ICD-10 - F40.240) [facility] 08-04-2023 Evaluation note* Encounter Date Diagnosis [...] related to other complaints or separate problem [facility] 07-22-2022 Note From: Genesis Denny To: HV - Administrative; Sent: 05/20/2021 08:15:18 EDT Show up: 12/18/2021 08:15:00 EDT Subject: 8 month follow up Due Date/Time: 01/17/2022 08:15:00 EDT Reminder/Recall 8 month follow up with Dr. Jacques (December) tried calling twice and patient hung up on my both times after i said hello. [facility]09-29-2021 Note From: Genesis Denny To: HV - Administrative; Sent: 05/20/2021 08:14:37 EDT Show up: 08/19/2021 07:14:00 EST Subject: 4 month follow up Due Date/Time: 09/19/2021 07:14:00 EST Reminder/Recall 4 month follow up with Haley (2021)[facility]08-30-2021 NoteAdmission Information Admitting Physician - [...] no EKG changes. Pt was seen by [facility] cardiology, recommended outpatient stress test and started on lisinopril 5 mg po q day for uncontrolled HTN. pt with some complaints of dysuria, negative UA, if persists to follow up with urology outpatient. Pt discharged home in improved condition to follow up with PCP and [facility] cardiology outpatient. d/w patient and daughter at [...] 14:59:00) Lymph Auto: 23.5 % (04/19/21 14:59:00) Archuleta Auto: 8.8 % (04/19/21 14:59:00) Eos Auto: 1.2 % (04/19/21 14:59:00) Basophil Auto: 0.8 % (04/19/21 14:59:00) Neutro Absolute: 2.9 E9/L (04/19/21 14:59:00) Lymph Absolute: 1 E9/L (04/19/21 14:59:00) Archuleta Absolute: 0.4 E9/L (04/19/21 14:59:00) Eos Absolute: [...] aspirin 81 mg O (more content not included)...[facility]Result Comment: Electronically Signed By: ÁNGELA SINHA, Patrick\.br\Date and Time Signed: 04/20/21 13:09 [id number] NoteChief Complaint Sharp pains in chest weakness [...] 14:59:00) Lymph Auto: 23.5 % (04/19/21 14:59:00) Archuleta Auto: 8.8 % (04/19/21 14:59:00) Eos Auto: 1.2 % (04/19/21 14:59:00) Basophil Auto: 0.8 % (04/19/21 14:59:00) Neutro Absolute: 2.9 E9/L (04/19/21 14:59:00) Lymph Absolute: 1 E9/L (04/19/21 14:59:00) Archuleta Absolute: 0.4 E9/L (04/19/21 14:59:00) Eos Absolute: [...] = 1 tab(s), Tab-Chew, (more content not included)...[facility]:Result Comment: Electronically Signed By: Susanne SINHA, Andre\.br\Date and Time Signed: 04/19/21 21:01 [id number] History general Narrative - Reported* Type Description Date Medical History Bronchiectasis without complicat ion Medical History Essential hypertension Medical History Elevated cholesterol Surgical History BTL 11/28/2017 Hospitalization History see surgical history [facility] 04-09-2018 History general Narrative - Reported* Type Description Date Medical History Bronchiectasis without complicat ion Medical History Essential hypertension Medical History Elevated cholesterol Medical History BRVO left eye Surgical History BTL 11/28/2017 Hospitalization History see surgical history [facility] [email or web address] Other evaluation [facility]No [facility] [email or web address] Other evaluation noteNo assessment information available [facility] Work Phone: evaluation note* Diagnosis Onset Date Resolution Status Bronchiectasis acute Hypertension acute Pulmonary nodule acute Suspected sleep apnea acute Fatigue noneactive [facility] Work Phone: evaluation note* Diagnosis Onset Date Resolution Status Bronchiectasis acute Hypertension acute Pulmonary nodule acute Suspected sleep apnea acute Fatigue noneactive Hypertension acute Left knee pain acute Acute bronchitis due to other specified organisms noneactive [facility] Work Phone: evaluation note* Diagnosis Onset Date Resolution Status Hypertension acute Left knee pain acute Acute bronchitis due to other specified organisms noneactive Anemia acute Bronchiectasis acute Chronic venous insufficiency of lower extremity acute Hypertension acute [facility] Work Phone: Evaluation note* Diagnosis Onset Date Resolution Status Anemia acute Bronchiectasis acute Chronic venous insufficiency of lower extremity acute Hypertension acute Hypertension acute Left knee pain acute Primary osteoarthritis of knee acute [facility] Work Phone: Evaluation note* Diagnosis Onset Date Resolution Status Anemia acute Bronchiectasis acute Chronic venous insufficiency of lower extremity acute Hypertension acute Hypertension acute Left knee pain acute Primary osteoarthritis of knee acute Hypertension acute Primary osteoarthritis of knee acute [facility] Work Phone: Evaluation note* Diagnosis Onset Date Resolution Status Admit Date Anemia acute October 30 8:26am Bronchiectasis acute October 8:26am Chronic venous insufficiency of lower extremity acute October 30, 2024 8:26am Hypertension acute October 30, 2024 8:26am Primary osteoarthritis of knee acute October 30, 2024 8:26am Pulmonary nodule acute October 302024 8:26am [facility] Work Phone: Reason for referral (narrative)* Reason Referral for SNHL, t innitus, otalgia/headache and dizziness Diagnosis 1 Tinnitus, right ear (H93.11) Diagnosis 2 Sensorineural hearin g loss, unilateral, right ear, 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 Clinical Notes Include MRI [facility] Other Summary Purpose Family History Relationship Condition [...] Left knee pain Primary osteoarthritis of knee Chief Complaint 2 month follow up left knee injection 3 month Reason for Visit Anemia Bronchiectasis Chronic venous insufficiency of lower extremity Hypertension Hypertension Left knee pain Primary osteoarthritis of knee Hypertension Primary osteoarthritis of knee Chief Complaint Admit Date 6 month f/u October 30, 2024 8:2 6am Reason for Visit Admit Date Anemia October 30, 2024 8:2 6am Bronchiectasis October 30, 2024 8:2 6am Chronic venous insufficiency of lower ex tremity October 30, 2024 8:26am Hypertension October 30, 2024 8:2 6am Primary osteoarthritis of knee October 8:26am Pulmonary nodule October 30, 2024 8:2 6am Chief Complaint Admit Date 6 month f/u October 30, 2024 8:2 6am URI December 06, 2024 10: 06am sore throat/stomach pain January 28, 2025 8:18am Reason for Visit Admit Date Anemia October 30, 2024 8:2 6am Bronchiectasis October 30, 2024 8:2 6am Chronic venous insufficiency of lower ex tremity October 30, 2024 8:26am Hypertension October 30, 2024 8:2 6am Primary osteoarthritis of knee October 8:26am Pulmonary nodule October 30, 2024 8:2 6am Family history of aortic aneurysm December 06, 2024 10:06am Hypertension December 06, 2024 10: 06am Acute bronchitis due to other specified organisms December 06, 2024 10:06am Additional Source Comments INFORMATION SOURCE (unrecogn ized section and content) DATE CREATED AUTHOR 03/14/2022 [facility] DATE CREATED AUTHOR AUTHOR'S ORGANIZ ATION 08/18/2022 [facility] DATE CREATED AUTHOR AUTHOR'S ORGANIZ ATION 08/23/2023 [facility] EPIC REASON FOR VISIT [...] [place] , DO Primary Care Provider Active Start: October 24, 2023 DYLON Helms Attending Provider Active Start : October 24, 2023 Team Status: Inactive Member Role Status Dates Lg Preet , DO Primary Care Provide r, Attending Provider Active Start: November 09, 2023 End: November 09, 2023 Team Status: Inactive Member Role Status Dates Lg Preet , DO Primary Care Provide r, Attending Provider Active Start: December 22, 2023 End: December 22, 2023 Team Status: Inactive Member Role Status Dates Lg Preet , DO Primary Care Provide r, Attending [...] March 22, 2024 End: March 22, 2024 Team Status: Active Member Role Status Dean Castanon Preet , DO Primary Care Provide r, Attending Provider Active Start: April 27, 2024 Team Status: Inactive Member Role Status Dean Castanon Preet , DO Primary Care Provide r, Attending Provider Active Start: May 02, 2024 End: May 02, 2024 Team Status: Inactive Member Role Status Dean Castanon Preet , DO Primary Care Provide r, Attending Provider Active Start: October 30, 2024 End: October 30, 2024 Team Status: Active Member Role Status Dean Castanon Preet , DO Primary Care Provide r, Attending Provider Active Start: October 31, 2024 Team Status: Inactive Member Role Status Dean Castanon Preet , DO Primary Care Provide r, Attending Provider Active Start: December 06, 2024 End: December 06, 2024 Team Status: Inactive Member Role Status Dean Castanon Preet , DO Primary Care Provide r, Attending Provider Active Start: January 28, 2025 End: January 28, 2025 Goals (unrecognized section and content) Goals may [...] BE BASED ON THE PRIMARY CLINICAL RECORDS. [facility]. provides no warranty or guarantee of the accuracy or completeness of information in this document.
[2025-02-06 07:28] LABS: Basophils Percent Auto 0.7 % (0.2-2.0); Eosinophils Absolute Auto 0.1 10^3/uL (0.0-0.7); Eosinophils Percent Auto 2.8 % (0.9-7.0); Hematocrit 34.5 % (36.0-48.0); Hemoglobin 11.6 g/dL (12.0-16.0); Immature Granulocytes Abs Auto 0.01 10^3/uL (0.00-0.03); Immature Granulocytes Pct Auto 0.2 % (0.0-0.5); Lymphocytes Absolute Auto 1.5 10^3/uL (1.2-3.8); Lymphocytes Percent Auto 35.2 % (20.5-60.0); Mean Corpuscular HGB Conc 33.6 g/dL (29.9-35.2); Mean Corpuscular Hemoglobin 33.1 pg (26.7-34.0); Mean Corpuscular Volume 98.6 fL (81.0-99.0); Mean Platelet Volume 11.4 fL (9.5-13.5); Monocytes Absolute Auto 0.5 10^3/uL (0.3-0.8); Monocytes Percent Auto 10.6 % (1.7-12.0); Neutrophils Absolute Auto 2.2 10^3/uL (1.4-6.5); Neutrophils Percent Auto 50.5 % (43.0-75.0); Platelet Count 282 10^3/uL (150-450); Red Cell Distribution Width 12.5 % (11.0-15.0); White Blood Count 4.3 10^3/uL (4.0-11.0)
[2025-02-06 07:52] LABS: Alanine Aminotransferase 23 U/L (14-59); Albumin Globulin Ratio 1.1; Albumin Level 3.7 g/dL (3.4-5.0); Alkaline Phosphatase 146 U/L (46-116); Amylase 60 U/L (25-115); Anion Gap 12.9; Aspartate Amino Transferase 17 U/L (15-37); BUN Creatinine Ratio 29.5; Bilirubin Total 0.4 mg/dL (0.2-1.0); Calcium 9.1 mg/dL (8.5-10.1); Chloride 104 mmol/L (98-107); Estimated GFR (African America >60 (>=60 mL/min/1.73m^2); Estimated GFR (Non-African Ame >60 (>=60 mL/min/1.73m^2); Globulin 3.4 g/dL; Glucose 100 mg/dL (74-106); Potassium 3.9 mmol/L (3.5-5.1); Sodium 143 mmol/L (136-145); Thyroid Stimulating Hormone 4.344 uIU/mL (0.358-3.740); Total Protein 7.1 g/dL (6.4-8.2)
[2025-02-06 09:21] LABS: Free T4 1.19 ng/dL (0.76-1.46)
[2025-02-07 04:07] LABS: Triiodothyronine (T3) 138 ng/dL (71-180)
== END 2025-02-06 06:48 | disposition home or self-care (01) ==
LOC: US 06:48
PROVIDERS: PCP Internal Medicine; Visit Provider Internal Medicine
DX: R63.4 Abnormal weight loss (principal); R10.13 Epigastric pain; R10.11 Right upper quadrant pain
CPT/HCPCS: 36415; 76536; 76705; 80053; 82150; 83690; 84439; 84443; 84480; 85025

== ENCOUNTER 2025-02-08 07:46 | Outpatient (OUT) | payer MEDICARE, SELFPAY ==
--- NOTE | 2025-02-08 07:51 | XR_ITS ---
The [address] [address] Patient Name: LOLA ANDINO MRN: [id number] date: 1940 Sex: F Assigned Patient Location: [facility] Current Patient Location: [facility] Accession/Order Number: [id number] Exam Date: 02/08/2025 08:32 Report Date: 02/08/2025 08:35 At the request of: HALIMA HONG DO Procedure: XR chest 2V PA AND LATERAL CHEST: CLINICAL HISTORY: cough for several months R05.9. Shortness of breath with exertion. COMPARISON: 11/11/2023 The lungs are hyperinflated. Granulomatous changes are seen. There is no developing consolidation, effusion or pneumothorax. The heart is top normal in size. The hilar and mediastinal silhouettes are within normal limits. There is no vascular congestion. The visualized bony structures are osteopenic. There is thoracolumbar levoscoliotic curvature and minor endplate spurring. XR/XR chest 2V IMPRESSION: NO ACUTE CARDIOPULMONARY ABNORMALITY. Impression dictated by: Laisha Ferrer M.D. 02/08/2025 8:35 AM Dictation Location: [place] [address] Electronically authenticated by: [id number] Y Date: 02/08/2025 08:35
--- OUTSIDE RECORDS SUMMARY | 2025-02-08 07:52 | XMS_ITS | CCD ---
Author Organization [facility] Care Team Providers Care Orthodontic Treatment Coordinator Name Role Phone PREET, DR CASTANON Admitting [...] Clindamycin Drug Allergy 05-12-20 Unknown Reaction [facility] Repository (12 sources) Penicillin Drug Allergy Unknown [facility] Repository (19 sources) Aspirin Drug Allergy 06-05-20 Unknown, Unknown Reaction [facility] Comment on above: Onset Date: 06/05/20 15 (19 sources) Ciprofloxacin Drug Allergy 06-26-20 Unknown, Unknown Reaction [facility] Comment on above: Onset Date: 06/26/20 15 (11 sources) Clindamycin Drug Allergy Unknown [employer] Other (19 sources) Ibuprofen Drug Allergy 06-05-20 Unknown, Unknown Reaction [facility] Comment on above: Onset Date: 06/05/20 15 (11 sources) Fluticasone Propionate *NASAL AGENTS - SYSTEMIC AN Propensity to adverse reactions 06-26-20 Unknown [employer] Other (8 sources) Penicillins Allergy to substance 05-12-20 Unknown Reaction [facility] (8 sources) Fluticasone Propionate *NASAL Allergy to substance 05-12-20 Unknown Reaction [facility] Medications Current Medications Medication Drug Class(es) Dates [...] 02-26-2024 Chronic Other aftercare (2 sources) Other retirement (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; 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] Onset: 05-10-2022 Episodic Other [...] Basophils (Bld) [#/Vol] Automated basophil count 0.0-0.1 [facility] Basophils/100 WBC Auto (Bld) on 10-31-2024 Basophils/100 WBC (Bld) Automated basophil % 0.2-2.0 [facility] Eosinophils/100 WBC Auto (Bl d)on 10-31-2024 Eosinophils/100 WBC (Bld) Automated eosinophil % 0.9-7.0 [facility] Erythrocyte distribution wid th Auto (RBC) [Ratio]on 10-31-2024 Erythrocyte distribution width (RBC) [Ratio] Erythrocyte distribution width [Ratio] by Automated count 11.0-15.0 [facility] Hematocrit Auto (Bld) [Volum e fraction]on 10-31-2024 Hematocrit (Bld) [Volume fraction] Hematocrit [Volume Fraction] of Blood by Automated count Low 36.0-48.0 [facility] Hemoglobin [Mass/volume] in Bloodon 10-31-2024 Hemoglobin (Bld) [Mass/Vol] Hemoglobin [Mass/volume] in Blood Low 12.0-16.0 [facility] Laboratory - Hematology and Cell countson 10-31-2024 Immature granulocytes/100 WBC (Bld) 0.0 % 0.0-0.5 [facility] Leukocytes [#/volume] correc pool for nucleated erythrocytes in Blood by Automated counon 10-31-2024 WBC corrected for nucl RBC Auto (Bld) [#/Vol] Leukocytes [#/volume] corrected for nucleated erythrocytes in Blood by Automated coun 4.0-11.0 [facility] Lymphocytes Auto (Bld) [#/Vo l]on 10-31-2024 Lymphocytes (Bld) [#/Vol] Lymphocytes [#/volume] in Blood by Automated count 1.2-3.8 [facility] Lymphocytes/100 WBC Auto (Bl d)on 10-31-2024 Lymphocytes/100 WBC (Bld) Lymphocytes/100 leukocytes in Blood by Automated count 20.5-60.0 [facility] MCH Auto (RBC) [Entitic mass ]on 10-31-2024 MCH (RBC) [Entitic mass] MCH [Entitic mass] by Automated count 26.7-34.0 [facility] MCHC Auto (RBC) [Mass/Vol]on 10-31-2024 MCHC (RBC) [Mass/Vol] MCHC [Mass/volume] by Automated count 29.9-35.2 [facility] MCV Auto (RBC) [Entitic vol] on 10-31-2024 MCV (RBC) [Entitic vol] MCV [Entitic volume] by Automated count High 81.0-99.0 [facility] Monocytes Auto (Bld) [#/Vol] on 10-31-2024 Monocytes (Bld) [#/Vol] Automated blood monocyte count 0.3-0.8 [facility] Monocytes/100 WBC Auto (Bld) on 10-31-2024 Monocytes/100 WBC (Bld) Automated monocyte % 1.7-12.0 [facility] Neutrophils Auto (Bld) [#/Vo l]on 10-31-2024 Neutrophils (Bld) [#/Vol] Neutrophils [#/volume] in Blood by Automated count 1.4-6.5 [facility] Neutrophils/100 WBC Auto (Bl d)on 10-31-2024 Neutrophils/100 WBC (Bld) Automated neutrophil % 43.0-75.0 [facility] No Panel Informationon 10-31 Eosinophils # (Auto) 0.2 10 3/uL 0.0-0.7 [facility] Immature Granulocyte # (Auto) 0.00 10 3/uL 0.00-0.03 [facility] Platelet mean volume Auto (B ld) [Entitic vol]on 10-31-2024 Platelet mean volume (Bld) [Entitic vol] Platelet mean volume [Entitic volume] in Blood by Automated count 9.5-13.5 [facility] Platelets Auto (Bld) [#/Vol] on 10-31-2024 Platelets (Bld) [#/Vol] Platelets [#/volume] in Blood by Automated count 150-450 [facility] RBC Auto (Bld) [#/Vol]on RBC (Bld) [#/Vol] Erythrocytes [#/volume] in Blood by Automated count Low 4.20-5.40 [facility] Basophils Auto (Bld) [#/Vol] on 04-27-2024 Basophils (Bld) [#/Vol] 0.0 10 3/uL 0.0-0.1 [facility] Basophils/100 WBC Auto (Bld) on 04-27-2024 Basophils/100 WBC (Bld) 0.9 % 0.2-2.0 [facility] Eosinophils/100 WBC Auto (Bl d)on 04-27-2024 Eosinophils/100 WBC (Bld) 2.6 % 0.9-7.0 [facility] Erythrocyte distribution wid th Auto (RBC) [Ratio]on 04-27-2024 Erythrocyte distribution width (RBC) [Ratio] 12.6 % 11.0-15.0 [facility] Hematocrit Auto (Bld) [Volum e fraction]on 04-27-2024 Hematocrit (Bld) [Volume fraction] 34.6 % Low 36.0-48.0 [facility] Hemoglobin [Mass/volume] in Bloodon 04-27-2024 Hemoglobin (Bld) [Mass/Vol] 11.7 g/dL Low 12.0-16.0 [facility] Iron binding capacity [Mass/ volume] in Serum or Plasmaon 04-27-2024 Iron binding capacity [Mass/Vol] 232.0 ug/dL Low 250.0-450.0 [facility] Iron saturation [Mass Fracti on] in Serum or Plasmaon 04-27-2024 Iron saturation [Mass fraction] 36.6 % [facility] Laboratory - Chemistry and C hemistry - challengeon 04-27-2024 Cobalamin (Vitamin B12) [Mass/Vol] 947 pg/mL 232-1245 [facility] Comment on above: Performed at: [address] [id number] Director: Jose Miguel Smith PhD, Phone: [phone] Ferritin [Mass/Vol] 218.0 ng/mL 8.0-252.0 [facility] Iron [Mass/Vol] 85.0 ug/dL 50.0-170.0 [facility] Laboratory - Hematology and Cell countson 04-27-2024 Immature granulocytes/100 WBC (Bld) 0.2 % 0.0-0.5 [facility] Leukocytes [#/volume] correc pool for nucleated erythrocytes in Blood by Automated counon 04-27-2024 WBC corrected for nucl RBC Auto (Bld) [#/Vol] 4.6 10 3/uL 4.0-11.0 [facility] Lymphocytes Auto (Bld) [#/Vo l]on 04-27-2024 Lymphocytes (Bld) [#/Vol] 1.1 10 3/uL Low 1.2-3.8 [facility] Lymphocytes/100 WBC Auto (Bl d)on 04-27-2024 Lymphocytes/100 WBC (Bld) 24.5 % 20.5-60.0 [facility] MCH Auto (RBC) [Entitic mass ]on 04-27-2024 MCH (RBC) [Entitic mass] 33.1 pg 26.7-34.0 [facility] MCHC Auto (RBC) [Mass/Vol]on 04-27-2024 MCHC (RBC) [Mass/Vol] 33.8 g/dL 29.9-35.2 [facility] MCV Auto (RBC) [Entitic vol] on 04-27-2024 MCV (RBC) [Entitic vol] 98.0 fL 81.0-99.0 [facility] Monocytes Auto (Bld) [#/Vol] on 04-27-2024 Monocytes (Bld) [#/Vol] 0.4 10 3/uL 0.3-0.8 [facility] Monocytes/100 WBC Auto (Bld) on 04-27-2024 Monocytes/100 WBC (Bld) 9.5 % 1.7-12.0 [facility] Neutrophils Auto (Bld) [#/Vo l]on 04-27-2024 Neutrophils (Bld) [#/Vol] 2.9 10 3/uL 1.4-6.5 [facility] Neutrophils/100 WBC Auto (Bl d)on 04-27-2024 Neutrophils/100 WBC (Bld) 62.3 % 43.0-75.0 [facility] No Panel Informationon 04-27 Eosinophils # (Auto) 0.1 10 3/uL 0.0-0.7 [facility] Immature Granulocyte # (Auto) 0.01 10 3/uL 0.00-0.03 [facility] Platelet mean volume Auto (B ld) [Entitic vol]on 04-27-2024 Platelet mean volume (Bld) [Entitic vol] 10.4 fL 9.5-13.5 [facility] Platelets Auto (Bld) [#/Vol] on 04-27-2024 Platelets (Bld) [#/Vol] 289 10 3/uL 150-450 [facility] RBC Auto (Bld) [#/Vol]on RBC (Bld) [#/Vol] 3.53 10 6/uL Low 4.20-5.40 [facility] Basophils Auto (Bld) [#/Vol] on 02-29-2024 Basophils (Bld) [#/Vol] 0.0 10 3/uL 0.0-0.1 [facility] Basophils/100 WBC Auto (Bld) on 02-29-2024 Basophils/100 WBC (Bld) 0.9 % 0.2-2.0 [facility] Eosinophils/100 WBC Auto (Bl d)on 02-29-2024 Eosinophils/100 WBC (Bld) 4.4 % 0.9-7.0 [facility] Erythrocyte distribution wid th Auto (RBC) [Ratio]on 02-29-2024 Erythrocyte distribution width (RBC) [Ratio] 12.4 % 11.0-15.0 [facility] Hematocrit Auto (Bld) [Volum e fraction]on 02-29-2024 Hematocrit (Bld) [Volume fraction] 34.2 % Low 36.0-48.0 [facility] Hemoglobin [Mass/volume] in Bloodon 02-29-2024 Hemoglobin (Bld) [Mass/Vol] 11.4 g/dL Low 12.0-16.0 [facility] Iron binding capacity [Mass/ volume] in Serum or Plasmaon 02-29-2024 Iron binding capacity [Mass/Vol] 237.0 ug/dL Low 250.0-450.0 [facility] Iron saturation [Mass Fracti on] in Serum or Plasmaon 02-29-2024 Iron saturation [Mass fraction] 46.0 % [facility] Laboratory - Chemistry and C hemistry - challengeon 02-29-2024 Cobalamin (Vitamin B12) [Mass/Vol] 800.0 pg/mL 193.0-986.0 [facility] Ferritin [Mass/Vol] 206.0 ng/mL 8.0-252.0 [facility] Iron [Mass/Vol] 109.0 ug/dL 50.0-170.0 [facility] Laboratory - Hematology and Cell countson 02-29-2024 Immature granulocytes/100 WBC (Bld) 0.2 % 0.0-0.5 [facility] Leukocytes [#/volume] correc pool for nucleated erythrocytes in Blood by Automated counon 02-29-2024 WBC corrected for nucl RBC Auto (Bld) [#/Vol] 4.6 10 3/uL 4.0-11.0 [facility] Lymphocytes Auto (Bld) [#/Vo l]on 02-29-2024 Lymphocytes (Bld) [#/Vol] 1.2 10 3/uL 1.2-3.8 [facility] Lymphocytes/100 WBC Auto (Bl d)on 02-29-2024 Lymphocytes/100 WBC (Bld) 26.9 % 20.5-60.0 [facility] MCH Auto (RBC) [Entitic mass ]on 02-29-2024 MCH (RBC) [Entitic mass] 32.6 pg 26.7-34.0 [facility] MCHC Auto (RBC) [Mass/Vol]on 02-29-2024 MCHC (RBC) [Mass/Vol] 33.3 g/dL 29.9-35.2 [facility] MCV Auto (RBC) [Entitic vol] on 02-29-2024 MCV (RBC) [Entitic vol] 97.7 fL 81.0-99.0 [facility] Monocytes Auto (Bld) [#/Vol] on 02-29-2024 Monocytes (Bld) [#/Vol] 0.5 10 3/uL 0.3-0.8 [facility] Monocytes/100 WBC Auto (Bld) on 02-29-2024 Monocytes/100 WBC (Bld) 11.1 % 1.7-12.0 [facility] Neutrophils Auto (Bld) [#/Vo l]on 02-29-2024 Neutrophils (Bld) [#/Vol] 2.6 10 3/uL 1.4-6.5 [facility] Neutrophils/100 WBC Auto (Bl d)on 02-29-2024 Neutrophils/100 WBC (Bld) 56.5 % 43.0-75.0 [facility] No Panel Informationon 02-28 Eosinophils # (Auto) 0.2 10 3/uL 0.0-0.7 [facility] Immature Granulocyte # (Auto) 0.01 10 3/uL 0.00-0.03 [facility] Platelet mean volume Auto (B ld) [Entitic vol]on 02-29-2024 Platelet mean volume (Bld) [Entitic vol] 11.3 fL 9.5-13.5 [facility] Platelets Auto (Bld) [#/Vol] on 02-29-2024 Platelets (Bld) [#/Vol] 283 10 3/uL 150-450 [facility] RBC Auto (Bld) [#/Vol]on RBC (Bld) [#/Vol] 3.50 10 6/uL Low 4.20-5.40 [facility] Laboratory - Chemistry and C hemistry - challengeon 12-28-2023 Bilirubin Ql (U) Negative [facility] Glucose (U) [Mass/Vol] Negative [facility] Ketones Ql (U) Negative [facility] pH (U) 6.0 [pH] [facility] Specific gravity (U) [Rel density] 1.015 [facility] Urobilinogen (U) [Mass/Vol] 0.2 mg/dL [facility] Laboratory - Specimen inform ationon 12-28-2023 Appearance (U) Cloudy [facility] Color (U) Yellow [facility] Laboratory - Urinalysison Leukocyte esterase Test strip Ql (U) 2+ [facility] Nitrite Ql (U) Positive [facility] Protein Ql (U) 2+ [facility] No Panel Informationon 12-27 Urine Occult Blood 2+ [facility] Basophils Auto (Bld) [#/Vol] on 11-09-2023 Basophils (Bld) [#/Vol] 0.0 10 3/uL 0.0-0.1 [facility] Basophils/100 WBC Auto (Bld) on 11-09-2023 Basophils/100 WBC (Bld) 0.8 % 0.2-2.0 [facility] Eosinophils/100 WBC Auto (Bl d)on 11-09-2023 Eosinophils/100 WBC (Bld) 3.6 % 0.9-7.0 [facility] Erythrocyte distribution wid th Auto (RBC) [Ratio]on 11-09-2023 Erythrocyte distribution width (RBC) [Ratio] 12.3 % 11.0-15.0 [facility] Estimated glomerular filtrat ion rate (GFR) non- Americanon 11-09-2023 GFR/1.73 sq M.predicted among non-blacks MDRD (S/P/Bld) [Vol rate/Area] mL/min/{1.73_m2} >=60 [facility] Globulin Calc (S) [Mass/Vol] on 11-09-2023 Globulin (S) [Mass/Vol] 3.2 g/dL [facility] Hematocrit Auto (Bld) [Volum e fraction]on 11-09-2023 Hematocrit (Bld) [Volume fraction] 36.2 % 36.0-48.0 [facility] Hemoglobin [Mass/volume] in Bloodon 11-09-2023 Hemoglobin (Bld) [Mass/Vol] 11.9 g/dL 12.0-16.0 [facility] Laboratory - Chemistry and C hemistry - challengeon 11-09-2023 Albumin [Mass/Vol] 3.7 g/dL 3.4-5.0 [facility] ALP [Catalytic activity/Vol] 152 U/L 46-116 [facility] ALT [Catalytic activity/Vol] 20 U/L 14-59 [facility] AST [Catalytic activity/Vol] 15 U/L 15-37 [facility] Bilirubin [Mass/Vol] 0.2 mg/dL 0.2-1.0 [facility] Calcium [Mass/Vol] 9.1 mg/dL 8.5-10.1 [facility] Chloride [Moles/Vol] 105 mmol/L 98-107 [facility] CO2 [Moles/Vol] 30.6 mmol/L 21.0-32.0 [facility] Creatinine [Mass/Vol] 0.83 mg/dL 0.55-1.02 [facility] GFR/1.73 sq M.predicted MDRD (S/P/Bld) [Vol rate/Area] mL/min/{1.73_m2} >=60 [facility] Glucose [Mass/Vol] 107 mg/dL 74-106 [facility] Potassium [Moles/Vol] 3.4 mmol/L 3.5-5.1 [facility] Protein [Mass/Vol] 6.9 g/dL 6.4-8.2 [facility] Sodium [Moles/Vol] 142 mmol/L 136-145 [facility] TSH Qn 1.941 m[IU]/L 0.358-3.740 [facility] Urea nitrogen [Mass/Vol] 21.0 mg/dL 7.0-18.0 [facility] Urea nitrogen/Creatinine [Mass ratio] 25.3 mg/mg [facility] Laboratory - Hematology and Cell countson 11-09-2023 Immature granulocytes/100 WBC (Bld) 0.2 % 0.0-0.5 [facility] Leukocytes [#/volume] correc pool for nucleated erythrocytes in Blood by Automated counon 11-09-2023 WBC corrected for nucl RBC Auto (Bld) [#/Vol] 5.1 10 3/uL 4.0-11.0 [facility] Lymphocytes Auto (Bld) [#/Vo l]on 11-09-2023 Lymphocytes (Bld) [#/Vol] 1.4 10 3/uL 1.2-3.8 [facility] Lymphocytes/100 WBC Auto (Bl d)on 11-09-2023 Lymphocytes/100 WBC (Bld) 27.2 % 20.5-60.0 [facility] MCH Auto (RBC) [Entitic mass ]on 11-09-2023 MCH (RBC) [Entitic mass] 32.5 pg 26.7-34.0 [facility] MCHC Auto (RBC) [Mass/Vol]on 11-09-2023 MCHC (RBC) [Mass/Vol] 32.9 g/dL 29.9-35.2 [facility] MCV Auto (RBC) [Entitic vol] on 11-09-2023 MCV (RBC) [Entitic vol] 98.9 fL 81.0-99.0 [facility] Monocytes Auto (Bld) [#/Vol] on 11-09-2023 Monocytes (Bld) [#/Vol] 0.5 10 3/uL 0.3-0.8 [facility] Monocytes/100 WBC Auto (Bld) on 11-09-2023 Monocytes/100 WBC (Bld) 9.5 % 1.7-12.0 [facility] Neutrophils Auto (Bld) [#/Vo l]on 11-09-2023 Neutrophils (Bld) [#/Vol] 3.0 10 3/uL 1.4-6.5 [facility] Neutrophils/100 WBC Auto (Bl d)on 11-09-2023 Neutrophils/100 WBC (Bld) 58.7 % 43.0-75.0 [facility] No Panel Informationon 11-08 Eosinophils # (Auto) 0.2 10 3/uL 0.0-0.7 [facility] Immature Granulocyte # (Auto) 0.01 10 3/uL 0.00-0.03 [facility] Platelet mean volume Auto (B ld) [Entitic vol]on 11-09-2023 Platelet mean volume (Bld) [Entitic vol] 11.2 fL 9.5-13.5 [facility] Platelets Auto (Bld) [#/Vol] on 11-09-2023 Platelets (Bld) [#/Vol] 336 10 3/uL 150-450 [facility] RBC Auto (Bld) [#/Vol]on RBC (Bld) [#/Vol] 3.66 10 6/uL 4.20-5.40 [facility] Serum or plasma albumin/glob ulin mass ratioon 11-09-2023 Albumin/Globulin [Mass ratio] 1.2 {ratio} [facility] Serum or plasma anion gap de terminationon 11-09-2023 Anion gap [Moles/Vol] 9.8 mmol/L [facility] Laboratory - Chemistry and C hemistry - challengeon 10-14-2023 Bilirubin Ql (U) Negative [facility] Glucose (U) [Mass/Vol] Negative [facility] Ketones Ql (U) Negative [facility] pH (U) 6.5 [pH] [facility] Specific gravity (U) [Rel density] 1.010 [facility] Urobilinogen (U) [Mass/Vol] 0.2 mg/dL [facility] Laboratory - Specimen inform ationon 10-14-2023 Appearance (U) Clear [facility] Color (U) Yellow [facility] Laboratory - Urinalysison Leukocyte esterase Test strip Ql (U) Negative [facility] Nitrite Ql (U) Negative [facility] Protein Ql (U) Trace [facility] No Panel Informationon 10-14 Urine Occult Blood Negative [facility] Urinalysis - DIPSTICKon 10-2 Appearance (U) cloudy [employer] Other Bilirubin Ql (U) Negative [employer] Other Color (U) yellow [employer] Other Glucose Ql (U) Negative [employer] Other Hemoglobin Ql (U) 6.5 [employer] Other Ketones Ql (U) Negative [employer] Other Leukocyte esterase Test strip Ql (U) large [employer] Other Nitrite Ql (U) Negative [employer] Other pH (U) 5 [pH] [employer] Other Protein Ql (U) 17 [employer] Other Specific gravity (U) [Rel density] 1.020 [employer] Other Urobilinogen (U) [Mass/Vol] Negative [employer] Other Urinalysis - DIPSTICK [employer] Other CBC AUTO DIFFon 08-10-2022 BASO # 0.0 103/ul Normal 0.0-0.1 [facility] Comment on above: Performed By: #### C BC #### [facility] [address] [place] [address] Dr. Bo Brown Basophils/100 WBC (Bld) 0.9 % Normal 0.2-2.0 [facility] Comment on above: Performed By: #### C BC #### [facility] [address] [place] [address] Dr. Bo Brown EO # 0.1 103/ul Normal 0.0-0.7 [facility] Comment on above: Performed By: #### C BC #### [facility] [address] [place] [address] Dr. Bo Brown Eosinophils/100 WBC (Bld) 2.1 % Normal 0.9-7.0 [facility] Comment on above: Performed By: #### C BC #### [facility] [address] [place] [address] Dr. Bo Brown Erythrocyte distribution width (RBC) [Ratio] 12.2 % Normal 11.0-15.0 [facility] Comment on above: Performed By: #### C BC #### [facility] [address] [place] [address] Dr. Bo Brown Hematocrit (Bld) [Volume fraction] 34.1 % Critically low 36.0-48.0 [facility] Comment on above: Performed By: #### C BC #### [facility] [address] [place] [address] Dr. Bo Brown Hemoglobin (Bld) [Mass/Vol] 11.3 g/dL Critically low 12.0-16.0 [facility] Comment on above: Performed By: #### C BC #### [facility] [address] [place] [address] Dr. Bo Brown IG # 0.01 10e3/ul Normal 0.00-0.03 [facility] Comment on above: Performed By: #### C BC #### [facility] [address] [place] [address] Dr. Bo Brown IG % 0.2 % Normal 0.0-0.5 [facility] Comment on above: Performed By: #### C BC #### [facility] [address] [place] [address] Dr. Bo Brown LYMPH # 1.2 103/ul Normal 1.2-3.8 [facility] Comment on above: Performed By: #### C BC #### [facility] [address] [place] [address] Dr. Bo Brown Lymphocytes/100 WBC (Bld) 28.8 % Normal 20.5-60.0 [facility] Comment on above: Performed By: #### C BC #### [facility] [address] [place] [address] Dr. Bo Brown MANUAL DIFF REQ NO Normal [facility] Comment on above: Performed By: #### C BC #### [facility] [address] [place] [address] Dr. Bo Brown MCH (RBC) [Entitic mass] 32.6 pg Normal 26.7-34.0 [facility] Comment on above: Performed By: #### C BC #### [facility] [address] [place] [address] Dr. Bo Brown MCHC (RBC) [Mass/Vol] 33.1 g/dL Normal 29.9-35.2 [facility] Comment on above: Performed By: #### C BC #### [facility] [address] [address] [address] Bo Brown MCV (RBC) [Entitic vol] 98.3 fL Normal 81.0-99.0 [facility] Comment on above: Performed By: #### C BC #### [facility] [address] [address] [address] Bo Brown MONO # 0.4 103/ul Normal 0.3-0.8 [facility] Comment on above: Performed By: #### C BC #### [facility] [address] [address] [address] Bo Brown Monocytes/100 WBC (Bld) 9.7 % Normal 1.7-12.0 [facility] Comment on above: Performed By: #### C BC #### [facility] [address] [address] [address] Bo Brown NEUT # 2.5 103/ul Normal 1.4-6.5 [facility] Comment on above: Performed By: #### C BC #### [facility] [address] [address] [address] Bo Brown Neutrophils/100 WBC (Bld) 58.3 % Normal 43.0-75.0 [facility] Comment on above: Performed By: #### C BC #### [facility] [address] [address] [address] Bo Brown Platelet mean volume (Bld) [Entitic vol] 10.5 fL Normal 9.5-13.5 [facility] Comment on above: Performed By: #### C BC #### [facility] [address] [address] [address] Bo Brown PLT 294 103/ul Normal 150-450 [facility] Comment on above: Performed By: #### C BC #### [facility] [address] [address] [address] Bo Brown RBC 3.47 106/ul Critically low 4.20-5.40 [facility] Comment on above: Performed By: #### C BC #### [facility] [address] [place] [address] Dr. Bo Brown WBC 4.2 103/ul Normal 4.0-11.0 [facility] Comment on above: Performed By: #### C BC #### [facility] [address] [place] [address] Dr. Bo Brown IRON AND TIBCon 08-10-2022 % SATURATION 41.4 % Normal [facility] Comment on above: Performed By: #### B 12FOL, FETIBC #### [facility] [address] [place] [address] Dr. Bo Brown Iron [Mass/Vol] 91.0 ug/dL Normal 50.0-170.[address] [facility] Comment on above: Performed By: #### B 12FOL, FETIBC #### [facility] [address] [place] [address] Dr. Bo Brown TIBC DIRECT 220.0 ug/dL Critically low 250.0-450.0 [facility] Comment on above: Performed By: #### B 12FOL, FETIBC #### [facility] [address] [place] [address] Dr. Bo Brown VIT B12 AND FOLATEon 022 Cobalamin (Vitamin B12) [Mass/Vol] 987.0 pg/mL Critically high 193.0-986.0 [facility] Comment on above: Performed By: #### B 12FOL, FETIBC #### [facility] [address] [place] [address] Dr. Bo Brown FOLATE 17.70 ng/mL Normal 8.60-58.90 [facility] Comment on above: Performed By: #### B 12FOL, FETIBC #### [facility] [address] [place] [address] Dr. Bo Brown CBC AUTO DIFFon 05-06-2022 BASO # 0.0 103/ul Normal 0.0-0.1 [facility] Comment on above: Performed By: #### C BC #### [facility] [address] [place] [address] Dr. Bo Brown Basophils/100 WBC (Bld) 0.7 % Normal 0.2-2.0 [facility] Comment on above: Performed By: #### C BC #### [facility] [address] [place] [address] Dr. Bo Brown EO # 0.1 103/ul Normal 0.0-0.7 [facility] Comment on above: Performed By: #### C BC #### [facility] [address] [place] [address] Dr. Bo Brown Eosinophils/100 WBC (Bld) 2.6 % Normal 0.9-7.0 [facility] Comment on above: Performed By: #### C BC #### [facility] [address] [place] [address] Dr. Bo Brown Erythrocyte distribution width (RBC) [Ratio] 12.7 % Normal 11.0-15.0 [facility] Comment on above: Performed By: #### C BC #### [facility] [address] [place] [address] Dr. Bo Brown Hematocrit (Bld) [Volume fraction] 35.2 % Critically low 36.0-48.0 [facility] Comment on above: Performed By: #### C BC #### [facility] [address] [place] [address] Dr. Bo Brown Hemoglobin (Bld) [Mass/Vol] 11.6 g/dL Critically low 12.0-16.0 [facility] Comment on above: Performed By: #### C BC #### [facility] [address] [place] [address] Dr. Bo Brown IG # 0.02 10e3/ul Normal 0.00-0.03 [facility] Comment on above: Performed By: #### C BC #### [facility] [address] [place] [address] Dr. Bo Brown IG % 0.5 % Normal 0.0-0.5 [facility] Comment on above: Performed By: #### C BC #### [facility] [address] [place] [address] Dr. Bo Brown LYMPH # 1.1 103/ul Critically low 1.2-3.[address] [facility] Comment on above: Performed By: #### C BC #### [facility] [address] [place] [address] Dr. Bo Brown Lymphocytes/100 WBC (Bld) 25.8 % Normal 20.5-60.0 [facility] Comment on above: Performed By: #### C BC #### [facility] [address] [place] [address] Dr. Bo Brown MANUAL DIFF REQ NO Normal [facility] Comment on above: Performed By: #### C BC #### [facility] [address] [place] [address] Dr. Bo Brown MCH (RBC) [Entitic mass] 32.6 pg Normal 26.7-34.0 [facility] Comment on above: Performed By: #### C BC #### [facility] [address] [place] [address] Dr. Bo Brown MCHC (RBC) [Mass/Vol] 33.0 g/dL Normal 29.9-35.2 [facility] Comment on above: Performed By: #### C BC #### [facility] [address] [place] [address] Dr. Bo Brown MCV (RBC) [Entitic vol] 98.9 fL Normal 81.0-99.0 [facility] Comment on above: Performed By: #### C BC #### [facility] [address] [place] [address] Dr. Bo Brown MONO # 0.4 103/ul Normal 0.3-0.8 [facility] Comment on above: Performed By: #### C BC #### [facility] [address] [place] [address] Dr. Bo Brown Monocytes/100 WBC (Bld) 9.5 % Normal 1.7-12.0 [facility] Comment on above: Performed By: #### C BC #### [facility] [address] [place] [address] Dr. Bo Brown NEUT # 2.6 103/ul Normal 1.4-6.5 [facility] Comment on above: Performed By: #### C BC #### [facility] [address] [place] [address] Dr. Bo Brown Neutrophils/100 WBC (Bld) 60.9 % Normal 43.0-75.0 [facility] Comment on above: Performed By: #### C BC #### [facility] [address] [place] [address] Dr. Bo Brown Platelet mean volume (Bld) [Entitic vol] 10.7 fL Normal 9.5-13.5 [facility] Comment on above: Performed By: #### C BC #### [facility] [address] [place] [address] Dr. Bo Brown PLT 284 103/ul Normal 150-450 [facility] Comment on above: Performed By: #### C BC #### [facility] [address] [place] [address] Dr. Bo Brown RBC 3.56 106/ul Critically low 4.20-5.[address] [facility] Comment on above: Performed By: #### C BC #### [facility] [address] [place] [address] Dr. Bo Brown WBC 4.3 103/ul Normal 4.0-11.0 [facility] Comment on above: Performed By: #### C BC #### [facility] [address] [place] [address] Dr. Bo Brown PROF CHEM 8 (BAS METB)on Anion gap [Moles/Vol] 9.7 mmol/L Normal [facility] Comment on above: Performed By: #### B MP #### [facility] [address] [place] [address] Dr. Bo Brown Calcium [Mass/Vol] 8.8 mg/dL Normal 8.5-10.1 [facility] Comment on above: Performed By: #### B MP #### [facility] [address] [place] [address] Dr. Bo Brown Chloride [Moles/Vol] 103 mmol/L Normal 98-107 [facility] Comment on above: Performed By: #### B MP #### [facility] [address] [address] [address] Bo Brown CO2 [Moles/Vol] 28.9 mmol/L Normal 21.0-32.0 [facility] Comment on above: Performed By: #### B MP #### [facility] [address] [address] [address] Bo Brown Creatinine [Mass/Vol] 0.69 mg/dL Normal 0.55-1.02 [facility] Comment on above: Performed By: #### B MP #### [facility] [address] [address] [address] Bo Brown EGFR-AF GUAMANIAN >60 Normal >=60 [facility] Comment on above: Performed By: #### B MP #### [facility] [address] [address] [address] Bo Brown EGFR-NON AF GUAMANIAN >60 Normal >=60 [facility] Comment on above: Performed By: #### B MP #### [facility] [address] [address] [address] Bo Brown Glucose [Mass/Vol] 111 mg/dL Critically high 74-106 [facility] Comment on above: Performed By: #### B MP #### [facility] [address] [address] [address] Bo Brown Potassium [Moles/Vol] 3.6 mmol/L Normal 3.5-5.1 [facility] Comment on above: Performed By: #### B MP #### [facility] [address] [address] [address] Bo Brown Sodium [Moles/Vol] 138 mmol/L Normal 136-145 [facility] Comment on above: Performed By: #### B MP #### [facility] [address] [address] [address] Bo Brown Urea nitrogen [Mass/Vol] 15.0 mg/dL Normal 7.0-18.0 [facility] Comment on above: Performed By: #### B MP #### [facility] [address] [place], [place] [address] Dr. Bo Brown Urea nitrogen/Creatinine [Mass ratio] 21.7 mg/mg Normal [facility] Comment on above: Performed By: #### B MP #### [facility] [address] [place], [place] [address] CHEST WO CONon [...] by: GALA TRIANA Date: 2022-04-07 06:28 Normal [facility] XR CHEST 2 Von 01-06-2022 XR CHEST [...] by: MALCOM MAGANA Date: 2022-01-06 09:15 Normal [facility] Consent for Treatmenton 0 Consent for Treatment [email or web address] 1 [id number] 81#[id number]:127 Normal [facility] Coding Summary.on 05-18-2021 Coding Summary. CD:[id number] HNy4aOp+PGhlYWQ+PE1 AELXaJ58glRSdeL2CY9 eITN7EUSZDFFHPAX4ZH O3yaIC4MNkcF8MvfxRi XxrzzTBwDE54NYk6WKZ 4fBqpWSxyyZ0qjZPoY7 b8HaNtZS05mN51DPldS PKbCbW3OyJyunczeEOx S5rsTvQthTGrVjz+PHR hYmxlIHdpZHRoPScxMD DfRjSeaDfoGH8pJq4rW GVyLWNvbGxhcHNlOiBj m0jeJOPxRAtvUO5oiDe pO7OzxAA7PAGbp7i0Vl 48dHI+JXNiONB4yLndS Oumo168IrNfm3rlYIO6 iPEdNQfwWSE5X18dw4C 7PPTiVODhMTX9wVO5wC 7cpLwpgalxO8RwkQKnX rA0WHC3fSKthV8gzIeq aamawX2hIfx+W48LQV2 QSZAERW4VHil0M3ZkIs wvdHI+RW08TSQgTW80f EOzdYVqm1rkpFd6AzFi JJCkHWE6wJepQAzmd2L oLZDoP72lqYEfa7P4GG MrxGjslZAsOjUpyZO9t W2nHKqhldxhp3svifbz Nxjva1snio13dV25Z71 uNMrzUHRoODG8LOWwQD RoiUowft6dyU9xPc6+I Lcqr7jon4vewHs4DgEs RHWtooJfkIrvZZC6b9A nDg42L8ZrbQaet2SrMg k1xz57nENvh7B4pZW4O ZgbLICnpO1fAMxxHgN9 ZJRoDzIfvU32lWSyDVk qAg0lrCgkkRjxFT6gWQ UfvkmyOFPayM5tPOUoc DQicNzpXA4pTVDgqfwp h718WdKtNVW0WMEbcQC bR3VnyA6kJwHcMWUvMT EfV8QtaARbHKciX227Z VwwIxZ5VBRpixWcP1Cq FMSymOkfWfT9c8F2Sl3 Ad0KqitaqHVX9PWemRN H7LbP2XvFpIrH4B7BuC ih0APSodMvmAZ9gS7Po PTPkvxrpowkzrLX7IUE mDBCvbE56wVTsTAzjDi 9tn0I9l112LLGyVPWpo X30Ui4vtFlzERInhQCS pR2rnxvnj5epqzmqNaN cZCSdAVi2RGz5ORXxtX arYbXuLSF4SzO1WFH1r OAojH2gfOmizfedjB9d Oyc+T83zlO7rPVB1PRK 8xxlkOFWryqGcZW30OR 64G3CgEjrgpFDbaGA+P IWbzxTwzFkcGI3lJiSi i8utw6TfXDwiL3ByPYD jJTrmJsc4NPXqXSF8vO A9eB1oFCGcSNrsb2G5a NA6T7PbfjHlaz1xk1rn PHSfXCryV74rgMYvu9X 3JACgxIY3HQAiaOvdRm SmyJ30Rpo+PGNvbGdyb 0TfFgkkk4mku5fcbPh0 IjMwJSIgdmFsaWduPSJ 9k3YcQr01L26kUQxjCI RoPSIxNSUiIHZhbGlnb o6jnT5xMd4+PGNvbCB3 bHK8kR7kBJGzIhJ7OUb hD670SeEckKRgUixqq4 nsd7jefBm8DdPxZFQsk jXuzCfdDGJ0z5LhFv16 F93lYUwuOHMgLPYlLLB vOZJqbHvbjq1duC8oVo 8+CA6uj9kuwx76kY93h HI+HDMhGKS6cIbiKNgy VJLxuU8xZSoxCdS8BKG zEsOwhY17gMCpTPlqMe 9wcJokeOmxIC5kFUFeq znei399HfPja9alLGBk tBKjMBqpRSX2M30px4H 7TFSrEPRuIQS4cJH4rK 1hbGlnbjogbGVmdDsgd pFrwYlhLCurHZneJ103 IHRvcDsnPlBhdGllbnQ sFlHxASm0O6YwNpp7VJ MzvUodYZ9joBPvKYmnG s8xtGtycTpbXF6rEVFe uvkwx133RmMtw3cgKZV rpIRrVDglSEI2E10ep1 Y3AKWbSVCyIGR7iJT3q W9tyOwgskauaZChxZra iqJmcLkjLLmgYJdzF76 6IHRvcDsnPkJpcnRoIE AsuHY6JD63OI12oSNfd 6H0sDH5P7ZqAYFirzir cvzacSX6DMXsYRUlqJ4 4As5tmHdnNq0wJYWnUS V4XNZnkHZhL5OthC8mN zEoISJyQBMyP5NwbNHl HAdcT083PAbcWwI9NTA uxgXdU6AiHNWcvXcnYh C8c6S8Om4MC7D8OO26Y R20fCUia0G4jXK8N4Ei CNWolxomylgpjLI5QPC dJSMkzS63Ve1lhAjdKr 6bOYCoJUM9SFXhjBIgW 2ChkS8sSlAsJQQkRVLc Z6NsvYIcALggR385YIn zYqW5ZZQljhWwX7GiMT GhkUdiRsX3r4X4Fg9AV Qh9RR66PC81dGAdg8G2 bSX9U0HaJGGmhmwtkip qcQL7IXAfTYGqyR77Pm 4xxRumBz0zNZPyVYU5R HZxvGYtC4EhxZ0cZxZv DRVsSKKhO4AiqOOnLYq qM901IRvgPpQ2ATPius VsA5AsTDDuvVuuCnF8a 2M4Cn9ARFPkGS49LFT5 eAV8XM17KP91Z4GpTay vdGFibGU+PHRhYmxlIH dpZHRoPScxMDAlJyBzd DfbPW6mVz7kGZKwVWGp wFrygTVzGmNvt8evHYI oGUoxEF8jzPkfF8QjpX B0XSOeg3j7Gd51H28yC 3JvdXA+KATvvZJ1sDQ1 rH5cReUdPpP8GZgoO89 3CqIorCNoDbslo5raq7 wclIz6JvM7JNVmohTbz YxhOVD7c8GnWp48L97f IHdpZHRoPSIxNSUiIHZ xcFuqra0laG5uCk5+PG VtyYU9gHL4fN1lDkZcB dL7RXrpP700QoYlsEKd Gqtgn7zvf4hpfCg7GpM wGXBvrrZfpXnzMEU9b8 TlTf89M9OerTjzp5RsH si0zk34fRNgm9Y1tSB9 C1VpBVXttrkheDXjaTh uSL8jLIXeokiwKBGcgU 8tZBCjB2x9HcVqChI0D IzwC4NtxsA8SWPmiUWf GHsyOLS9B65jd5U5DXO qHQWaLDN5bHT0bH6bmV lnbjogbGVmdDsgdmVyd KmkPCxiIBfpU378AHKg yKhnUPPffJ1cPFDdhET gdExgTL7vEMSwphpmIe xQQw0UFujdZ6SBH1sDZ oEAVD16WG95dQPfj1R7 gED2Q6NlWFCtxnxzdgj lfRC6FTUqBHBgjG20pR HtWGpoYc6ol4D6f423Y ZQkOYRbsM90No1ebShh EZWnbCNNlY4halpxg5i omfwdYdZrYSBgKOd4GZ l5THKinVxrToMyWBO9Z dT9HJC7nQZkfU3vbMwb cdwotB5kUlv+MTAvMzE vMTkzOTwvdGQ+PHRkIH N9tVglWTpzLROuwT0kA GTzP6u3KmQcYtZ7XJaa T4OgDPDsoaxvJp51nV7 nUzApBpI5HPevH1Fxlk X6WRKhuMBuAEmzUVM7Z 65ik4W0SGIdVNTwQCP0 mBQ7pQ2hyQgjxfolcET mdDsgdmVydGljYWwtYW vlZ919QRCqtZmgOmgqX QuiBFAnHK06SG15gVWi k5Z6gOG0Y7VwQHHlnxa gbwdvnWH1NAFaVFBwxF 20sKOiAWldXn4zp2D1l 562DRQgXACyfK26Zu4k vNbdHHZqgIFKqL5zatw qn3xbidawUhHwRDLjWV l7TKh4YGXhjWbvGnMlG UR5IbF0PUI0rMRjzQ4m gWejkizaaJ3dPxt+RmV uMFsvDM77AB34pNWkp8 X5cWP4Z6CgCYWdduefy mbhgKS9XWTzQRFbdS28 kCAcVNjzIw7mu8B1h80 7ZQVaIDPotM07Fo9hgW lzLHAudNGSiP2dfmlet 0zidhtiMdQdWVEnQEs1 AFz9QZBytOcwMzUoDOR 4AtY1CAB7fXQbrS7btT ztmcwnxD4bQsj+T3V0c AG8cOPkdDmbuRD+PC90 nv06X8TdTganHwc3SIA kEZP3iEY3uO8jWNKzTN bfd7U2vAA8G5LkulThy a7uy8wlCSUeNQzcZ21r rTUlg2V1QESoeZG8VPB jmDwhQbCqzM42Gcs+PG TzePzcr4RsUxwde9xba 5argGz1YuHdZLEbpbZm aVptMEN5j5SwFe30E61 sIHdpZHRoPSIzMCUiIH CuiDgpcg7bwQ7kVp6+P KKdwWU7dWC9pA0wQlWb OyC6GZabU399NqLevNC qMdsur3xug9xhgCq8Lw ZsMQInzoKglKuuSCP0t 3XrPm73M3IzbTpjg3Wy Krc2np60tVMuy7U4jYQ 4J8CbRHUunwnotGBjpS fhTH8gENJmbchrTIHni Z7sWAUmG1l4KxCuIbY4 HAucJ9VwfmF3FYDebKW gKWUuaNXZkK5dyusyt9 tilpwqSdWwRCGcFXw6J Wu5EAHufVlhSoKvAQZ5 BjQ6BIG1cQCsyP8slOb uwbhlvL6vHdd+UGh5c2 qpkOFlVE3arWW3VB01F T43lFYbb1H7cFZ3D7Xh TECupspnvkxzyMS5QOQ jNOWcnN90Sq5asOgrJo 4uORWjBHZ4AYAdgLMlJ 5OkcW8wJdYhTTZmISYi W6UbmDWzPFtzF158OWs iLbR2NBZeqvPwL8ZpNG OgdZyoLfO5q5N6Ak9YC U37HH54AE73jVZcc2M2 aWR5D2JrJICbqswqzjx tqRG1UZTrRFFbcG90Ff 7iiSksRf8wNEFlSVY2X KYijSNzN4CgwF0hGsFa BAPqMTNrM8QhyTXrEFm pW523UUdfIfU6BZDutz XtU9GxUSMslBhzHrG8i 0N9Vy4HMb29LV46IB93 dZHhj0N6aAE3O3QpYQX ibckocbwunJN0HZIgSP GswE76Gk7wkNvuNh6zQ YEwTSW1BKAvpVLcY6Fb oZ4tFzGoSGXuDXXqO9Q feEWiLLorP852FVzsTt B6NZLtgoWxF3XwPZByh VveDeN3g4A3Yu7GHJye xtn8K6EuUgxwxFU+PC9 8FCWdHZ67qAKudJQro4 atrPd1LiCaSZQkLKT3r DujYQdmp9FdRNBgC25t bGFw (more content not included)... [facility] Coding Summary. CD:[id number] KJu2aPf+PGhlYWQ+PE1 NORAkH33zsDRprI8IT3 bXWA7DCPMEUHIVZY2OT D4zlDB6KTofX0UbisTt CzgoqMHzJC20MYp5ZJR 1dRdkKOyiqK5agRKzG6 f0BrKgGA30lV68FHtyG LDdIwU5XuLiltkxtGFd T2vmVkByvLQzKtu+PHR hYmxlIHdpZHRoPScxMD OwHhYndIjpUU0tTc3rW GVyLWNvbGxhcHNlOiBj g0piBIKyYVgaFO8hfPr xQ2VceZZ8YZYgm3b9Iw 48dHI+NZVwDHC4rDgvQ Vqxy374LzXzv8gyGEX8 iJOuUUzvSXP2Z77df7U 5NENaRDZqDOI5mEY9iW 6baFpsuumrE3UexINqD nL1GKP7hJQdsV9orBbd tolnaH8sBov+E60WNE9 KTOUYUP1CAom5G5NqLc wvdHI+CF51MCIkLH20n QAjyLPqh7yioAr9YfQe QPRaSMC8cItbBRuus9A wFTDvD09xfJKiq3A0NZ MtsCeyrKPlKrFgwHP7j S2rRVbumyurb5pngwkv Nzhzi9mnqo53fS72K22 gGImzVYXmPGL3BIHpZQ ZtaHedhm2wrF9jPr7+I Mclk3gdu2rcgLs4CeDz SMQonyRhvXyjJRF3e7H uXc56Z3WunRjig2QaGr l4gv56xTLpg7U4bLV2X HoxEMXbvR8eQNmcVtT9 NWKkFcYfyL55hOBtVOs aMz3lvJvsgAlvND0eSM DcwvafFVPseN3qYBJla XXbaVowFH8pGYXdfqbi w026NuAbVCE9GRWviTD uH3VatR2tYjOoKFTcPP VlW4YgdNLxFLdsK763E JshGrI6GRXollDqO5Nd OCRdxIzoEvP4t1J4Mw6 Cw9DnufagOJH0WYceJX I6NeXcWuRqZfV0Z3JxF tn9GAZceJhjRK1tL1Lx NXFjhzyjpybnkXA8AWE wUDYcmB63pUKzYWfgZf 7pj5B9i562YAQkYFZel B23Zg5qpEfqKCSbnLKF wG9usuqje8zuoclgUhV gIOViSNy0REk6PMUisP bkQyEaBQP1RiO5MBM7p EOxnK4uzSffoafcvT3t Oyc+V23ozZ8pCFN8ZAO 9fnebSOSneaZkSX57ME 79K8CkTevliQDhbIC+P PMxhcDbcJafTT0nGxUc z3gus9VaQYbfY7QoIUL zGBryYek5HYRhTAD9kY F4mS7ySRVjELyum5K6k RD1G8BmejZxlk2sg2ko AJCuVPoaY31gwYRkw2M 8NLKtvYA9BPXxtDmmSo GlbZ80Ecq+PGNvbGdyb 6ZjXfoeu9sgu7vraBq6 IjMwJSIgdmFsaWduPSJ 3l4HeSv96W37cCFltWG RoPSIxNSUiIHZhbGlnb t5laT1mHx8+PGNvbCB3 jDL7mP6sZYTmOnH6TMc lR442ZuIjdXUtYjohx8 typ2kjsJk7OsEwBAHie sXhgTbySWT8w7ZdPm82 Z63aCTejYWWpQLZuTFY bTRYbfBgade4eqA1rYb 8+WM7mo8hcgj25wA47l HI+GBDnNLC2zWozFIum UQFaqT0mKZroJsQ3BUP eFtNmpS80vTIcGMzkSr 0wnIfmyDntNB2fULIkq milf118FjQxo0ngUWZn vLIdIAaxGGG6O80tq4C 6SOYvTUPbJSC9xVQ8xH 1hbGlnbjogbGVmdDsgd gJcdYerOLniTAteQ005 IHRvcDsnPlBhdGllbnQ pCrCmNAh0B1WoJii8TL JjlLvtJO6nfPEdTQirT k9gvHxbpAolTU2tTOFk niwwu003HmFca8jqNPH ivEMhSRywHON3X36an3 Q5OKMfOKHoQDN9nQJ3l Q9kwKbfxkkphIFguEeq vwMjrMrrNTbcFAueJ25 6IHRvcDsnPkJpcnRoIE DlkCM0KL87NH35hNNtu 9P2jNS8Z9DxYQNfxmrd danlgRI3UAWoYDEhdM9 9Yg6kaScrYu6eMEJfON Z3BJMtgGJiU7UuyQ8rU yXgKUOdCGEoZ1TthOWx YJgxW962ZSqoGpN3AAP mrxQqR7AuGUQrpIisOk T4d0Q2Fh5XR0L9OL16T E48gPWym9C0dBX2R5Mk NSZnpbujpzvxpUM5MUV yRWGlzF22Dc5ywYtnIe 3dODOyGPD0NZYbkWMcV 4ZwxU1aTvGzSDDbAUKk A3VcgRNqSKplH874KQi bAkC1XKBcriMuO8EmNO BcpBerSzA3l1C3Vk0JK Yo4KV40GI16gTNxb7I3 zZU9F0DcFBDqallcfbw vvEQ2GVBlUSQkdT24In 6phUipXp9uYBOzZNX2U UCkeLIgZ0PxsA4mHqJq UEYrXZElI6QyaSDzLCc xW865AKyqOhG4SZBgjr BoN2DwQQRslCrcUpR3x 1U5Mp9IXQDzVL79TZI8 aTN6FV22GP03Z1JwXfq vdGFibGU+PHRhYmxlIH dpZHRoPScxMDAlJyBzd VexYX2gEw9wCIEqWWZt nRychJRfIqFfh0luDKZ cZWfhDE3dmDezB9AxfW F7NMPct5c0Ih93E15pL 3JvdXA+WPYddBN6oVY4 mY0vXsYcVnU0EZfvE15 9IyMleZIcGhnme7iii2 xjqYl2UcQ1XBLhltEgf HldJFX2z4AqHn99Q14g IHdpZHRoPSIxNSUiIHZ jiJrpra2gbF0jEc4+PG NbiTP3vKX3hA5qMzZfX yJ0CYfxB185ZjFhhTNf Wjdyg2qix7tguEf3HjO lREQgewVmsKbsBVC5e7 GjUh60C8YnvKkbc3IhP fr9ot02lDMti1S2yZR1 S4CtCDCkioufeUWnyXa uJJ1rBYPzznfjFHOfpY 9aUQMgW4s1TdKdXcO1Z TvtM8SxjuP5XTUdlZRg DWnxIRE1K85gz6R8OYL rVEXaHBQ6nVB7qW2seX lnbjogbGVmdDsgdmVyd GuxUKwmNMwsX177ZMTt tOkyYIUxqP0eMJWbuEB jqSywGW2sLMOxjfmmWf oHLl4WTaaqY8KKN5gTR dRNXI72CY31vOWmv2X2 aJM9M6UmODOigcgswuu jdZW7VUPfHCPygJ81nB ZsDSquIc3pd1K5r640M UQwPLDxfM36Wu1wgRom ALMsuBJEkB4lbzgxi4g taccaEpOdAIZdCBp1RO l2IUJwxCbzPkKbAEF6Q iP5SGM6sMHbkJ0xcTmx nbjciA7qUwn+MTAvMzE vMTkzOTwvdGQ+PHRkIH A4vLheGNwjBMEvoP2nK CAuE2x8SdOpWeO5AWdn U3AyKZFpmoocUa64dM6 nDvAvTdI8RWrtS7Juec W6NFNbnMWxEQunCAT2G 55pl1Q6RYVrFRBnHLS4 sFL2aQ5miNeabyuswIY mdDsgdmVydGljYWwtYW vqF996YZHvgGfnKmkhL EflCXIxKM91XL37nXQl u0B5qJS0C6HfEWVaimx jwkzafPQ0FSIjGDTpfD 13vMGwHBllQo0ii6T2t 888ZXJhGFSjbC17Qs1l qDjzITEbmAGZfR1lvbj yl8uhnaesIiHnGWXuUJ w8BVj5WJWeaCxeDqTwK RK9UvU3XYH2zZVzcT7i dGdlkfgdzH6uNcw+RmV lLKfpMI51LJ52bPNap6 T3sBT9G6YePEPabcend jxovBD1HFOoDQCxwK74 tWRcCCbiTc7ep6X1t20 6DWEdBTYmeZ27Bm7nsP gdFZGrnMYGpZ0uubhag 2hhusfsTvFsZKNzEYe6 SQj8ARGhiUjaMsYhMQZ 8BzI1TNF5uOCkrB2gyK eaxxmhrN8gMmz+T3V0c TA3oSKbuWemoSY+PC90 nc02B8UgGzooJfo8QVM oGEG1mNB2sC4tYKQyGT xsj5C2pLV2V0ZyosDeb g1wp5cbDKUeMFipK92p xLBwx9X1HNRfyQF3PEF ezOfmJgMlvH29Pra+PG DtcKeub4CtYsbvh2est 4vkfOb2VtQnAUSfdbGx rCaeAJE2v3IpKo96L67 sIHdpZHRoPSIzMCUiIH LtvDppkc3sbS5aUo4+P TVgpEY5wRJ5qC5lFnPu EaN7XScbR522UlMkiPP kEqudc9qca0drdPi3Lp PvXIQicaJvbLawACU9a 5VnDo10B5BetRybs4Dl Aeh0ny10bZNej9D7sOM 2U3EgNTTakdksnRAxdN lkSQ2eCMIhuayiQKDfu S8vRFHuZ7t7FtHhOoI9 GRdoP3FaciQ5YFFdgYF wJZBxaDIGzE3xlnhzz8 sqlyvnSmKnALDvKHq9X Co1VAOdqEaePcTuBVS2 ReQ9HDR9gTRzjY3xmHo gjqoayX1pLna+UGh5c2 gjiTAfSJ1wrFP9YS72G T16gQAmb0W9eUY1K8Ac YIBbaojvrdzlwOV3OYF wQIHagS35Hw8aoJdyQd 8kNVCcUDF8OYJnqSEbY 6OkpB3tJsBaDEEuHFMz H6ZhpURqEKcbG710QGs bXlO7IKMtzrXzF5VeHM ShjWfmUiO0n2W7Ti8HN D95XS51OX54aFDvi3P2 mIL2E6CpXTGvjxdtygf xsES1HCTmDXKmoH22Rz 0edTydVt8dHRWnNGT7M COjhPEcC8QssT6lGnEw SYGsMESjP8OjlKAwBQd oP809DUujZuQ7YNSnqa NjQ0UvIFSyzXkjPiM2n 6M5Bm3GJn49CB77LY85 hTSfx8S5cLA1K6OnPIG tozqcypdkvKW4LFNeXQ XmhU77Qe2qdFrtHy3xR NLzOMS5PXRfnOXxI9Bi cH5wOhKoPVPrZUOoA3W tnZJrGNnjV247FMqoRg W6HPKewcVpS4QwMQHfb FrsGcI6y5L9Qj8QSIwl eaz3M6OsYvyvwOE+PC9 5ZAJqDU04jDClsMYhy7 uqfOi6KsZmJXJyJDC1d LjnFAwlv4ZpAVKpF31z bGFw (more content not included)... [facility] Consent for Treatmenton 04-23 Consent for Treatment [id number] [email or web address]:127 Normal [facility] Heart and Vascular Office/Cl inic Noteon 05-11-2021 Heart and Vascular Office/Clinic Note History of Present Illness Lola Andino is an 80 year old female without significant cardiac history. She presented to [facility] 04/19/21 with complaints of chest pain. [...] She is going to go to a contracts paralegal in the next week or so to [...] SINHA, Tristan Ashley 04/30/2021 16:28 EDT Normal [facility] Comment on above: Result Comment: Elec tronically Signed By: Sawyer SINHA, Nico Long.adwoa\Date and Time Signed: 05/11/21 11:15 EDT Stress EKG Tracingson 2020 Stress EKG Tracings [id number]:127 Normal [facility] NM Myocardial Spect Rest/Str ess 1 Dayon [...] Stress Dose (mCi Tc99M Cardiolite): 29.9 Normal [facility] Coding Summary.on 04-23-2021 Coding Summary. CD:[id number] ISb3aLa+PGhlYWQ+PE1 SCVCtM13cfNAemG1DT6 rHLS1FDOQSWAVPUF2RR U2ysEY4SIyrV0GgfuCi MjizkVOxEM81JNh6PEM 1nSxkHYpuoF8blORdX0 f2AiFgQZ46wO73YIblH ZBeKyB5HiHdpssigABh V9mdTzFofROdUaj+PHR hYmxlIHdpZHRoPScxMD FmQsHxeHtgSQ5eQz1lQ GVyLWNvbGxhcHNlOiBj u5hzJQAlVNugDC5zgLu yL1ZqsRA0JCZxn9v7Ti 48dHI+GJLlQPY7lUevP Bfov653KwBwz1bnVLL6 aXPuQXjbNQV8U74dn5U 3WCDpSQClTJF8jLF4lT 5ioTigdqxoX2PgjZWaO lZ6IOP2bBByhI3xeJeu ailegK8yAly+R45VSX7 OFAXDAW8KTvf4E6PiQd wvdHI+OL12CKTiPH73w KBpoADql8mjvLl0PtCp NGNwSHM1eTquLOpfi8M rWSBhM00hcRZxv7T6XO ZhmFfigHJbMbAhtSD5w E8aYIhtostxh2qvzvff Jhidl3vntf86hR40R04 bHRusIMKdGTH6CIBdSO KtkUyjia9mrP8eSi4+I Urbw6pzs8slrMm1WeUe GZXyuxQmmLojBJK6a3J iYd49M4KyuQayl7ItEi i9uu83eQUui9U7gFI4P EvmKBVmrV6pXMbzCeS4 PKTuKjPrwE18qJZpUWm dWc6cqVirvTzuJY5aTA JuvpziSMBzuT1fRJHzs DZcdDsdTB5aRUOiztbv l754McPcWNZ5EAScnOI mF2CsdY1nYdXwGENkUC RdM0XctXIeUJddU241I TjwKcY3VADnsbUsK3Pv KLYrwXmkJnE2s9K3Ql0 Zz3ZsikuoUNL8LClmQV N6MiQzBaMlCaP9M5IwB tp9UTUohDitXG3vK6No BHDgxlvbhtshqBJ9QCT uVFBlqN98rUCpTAuoDx 4fg7V3h104LNRvRRWnr F55Zq7inSddMQCkdRFY mN5ljemhi4miospnGfB lVNNxWNn1IZd1TGIyxX zyJvRaZNZ5CnO8TPS4g NRltB9xuGtgftkevX9g Oyc+M02fgC4aGHU8ZNF 3ojkzDLFblvOtVD74UZ 94O0YmBjgjdXCaoSP+P RYehfZxhMogYW3fBiAz t0kav3SxTNdyM6AiHQK bMNpgVby0UJUaNSD9uL R6iO2eYJYoROzft2Z1c AB7Q0OojgTpzg6fk0uq ZQNoIFisF96mzKNqy8Q 2RBTqtUJ6GFNbpHfuQh MfqA21Ldk+PGNvbGdyb 8DsTeaxh0diy7mrdYt6 IjMwJSIgdmFsaWduPSJ 0n6AaUq73N85xCBinAU RoPSIxNSUiIHZhbGlnb y5lmS0tFy1+PGNvbCB3 rWU8nW8nBCEtJvW3GMv eD506TrQavBDvFkegc3 zkg4kecBe3PmYiLZBhh lGaeKikXPI8g0EqKr38 C65iTIiiUJXtKDLmCSX pQOZuoIacoj5frO4qHf 8+DE7eo1lurj49sR67o HI+BBDnBVS4vFtgRXkm WJTykP0gOHwkYhB6YBP nIpJkeV22hJTnXOjvCb 8jwModeYrfMZ7iWQZho bqlm593IgPfz3atGVJg jLArUUctSYP4G14ja2L 0ADAiEIRjUPM5bNA3uS 1hbGlnbjogbGVmdDsgd hManOfwKOowDCcxY228 IHRvcDsnPlBhdGllbnQ mFmLfZFs7O8KnGkn0IB TedMtwWQ1owWWcADexP u8krEsmwLddVL3vYTZu bemji435VsGnk4rjCPJ jmBUlRHvoJGN5O21ha9 S0NWQySMNoDBN4xHN1z H1ecIxbcpuoaWKgkNuk yeXkcWmnWRkvVUthY65 6IHRvcDsnPkJpcnRoIE YdqAG0GK48FQ62bAUnu 7E4xDW9E6XrOFBdawhu aomqsCP2YKKoYMMjiL5 2Iw4cjNkkCv2sMPPtSK M1SWZubYTwH7FohJ5vF bKxUTXcMMZgJ1BmcWTl GCrlK541EIfdFxH7PFN vjiEfN0DvAUAdcZyrQs W6c7O7Ua2PT4S5DN23H O25pXMqu6B3eJF4N1Vy YHTwtfltzazmnAT5KKS zHCFfcB38Do4pnKtkCw 0eECJzEFQ2ETKesXZtZ 2FxfP2nOeFsGLUlKTXh U1IcrXEkZAewW448EZh wQaB9XGRtviUyH5IzYM CfxVklCyJ3e0J3Rf0BJ Aj2XP95BW77kZVav8H1 kCK7B1NqVZMyijgxlup jiFG0JXOhQLUhgZ39Xx 4vgUfkOo8mEPGpIEV6J TPfnDSaJ7WdrM4cDnUx WYUfOBAxA6NypDTmPFm fT842FRtoHsD2UXAtls TyV6AwERHqtAzxJtP3o 4U1Fq8AXJIaDW59LNN5 yQW0LR78AI76S5JhGig vdGFibGU+PHRhYmxlIH dpZHRoPScxMDAlJyBzd ApdOE5aHc4qEGKvKQTh mNujzQWpMcJky4lqRYU aSTwtWX1yrBlpH1FxzA U0YYHti0z3Ot96Z31sB 3JvdXA+LBGfqQB6kLM3 jP6sXzCqWjS4HRhaN15 6KiIttPEgQtyrm2ztt9 pqwZl3YlW4TPYequVia HaoDQP2i5XoRb39K45u IHdpZHRoPSIxNSUiIHZ irRufvo2saB8tWd3+PG YqwKQ8rGN0oQ5hJkCsN oC7INlvK775AaCraVQt Spgzr4aaz9myjWa5BjI eQEAeahNdtKgsWYA3e9 AaWk39U5NevNljt2CtI iz9iw27wUZbx9M4qIX2 J2TyABHytdphpMXufFo bTO4wVLZpdydkXTFqiK 3sRJAyP2k9UnKaUrB1G TcsX4CjllL0RCVkdTDe ULjkCUR4K46eq5K1OYQ aWBZtTZB6bCS4kR6ujB lnbjogbGVmdDsgdmVyd WcwIUldSVsfS822GQJo zPjxFRUmiP5kOXShoQC xfGrwQL0yOLKvwczbVr xOTw4WCspjW8PXB5xID xGAAD27TO56rMHbl2G2 pHP9X4ZwFJPgbpyuybw loAZ7AAYhBDIxxO64sB OtDBskTa0ar6R2v775X TYsNGPdtA33Wz9goAee YCOroTFPrR3bdwjba7t uzgiiUdDfTKPzGCm1JM i1NIUwrHgqYoRtPJQ0B lH0WNJ9uYQneV3aoFul wqajsG4kWgp+MTAvMzE vMTkzOTwvdGQ+PHRkIH O6lDfyGRxuLZUylQ2oP STdB9w4ShTiPeA4WTwq W1FaDYLppikpIt36uW3 iGuWrSrM4CThfE7Qfrk S4TMOhjYUkSIfiOBU9V 71jh3W8NCPcLPLeOXP4 eND0dL7veBltrztnyFC mdDsgdmVydGljYWwtYW pgD639HRYnuPykFcqtQ IswQRGsVJ76ZT67mNVi p6N1mXW4G1TaNCJlsgb daygwtVZ9OBUaKLBdhH 42sHOgEAbmRb6ed1S9r 674JQGyYRPqxA19Ru5h sQijXTSkuDNLpI2fnat xp3bspwouWsLyNDYzRU e1ANj8NADoiDaiGiQoD IU3XgU0KDK2eKKziG6o kAaqwftcjB3tUeg+RmV lTRnmCI74YP12jWWhd3 C3wOG4K6XeBKHuantzw vxggME0FTEaFUWdkB39 rXVaESpxNj7oa0U2g38 7SSVvWJZptT06Wd7giU vlXCKkbZMZkW2ukdtrh 9hmlrmuBxOpPCCnGFb3 COv2WFSxgSugJjPcQBW 6BcC0ZLP2yQKfmT6ngX xlofmfsV6fXti+T2JzZ QU7RUVuu983A9ZrAwos dHI+LV22YTPiYJ42lXJ bvGRdb5rofNl7ZmNpFO AySHJ9nNytWZxnv4ZcP BEcH93stHEft3D3BQZp iCblhBMvDlUzvSE0oK7 gJDlpykvsz0crxqlrAb mto0slsc60lD28E50aU HdpZHRoPSIzMCUiIHZh kMuwjw8ikD2jCx8+PGN aiAW6vBD0rM4pBvGkBg A8TJypP659OfJlgMElR gmmv9fef0djxYt4CcJg IGXqfdOdlXroUYH5e7A zXv81Q28vKXleJFKiDG TgMHTdQZEiqHivqt0jy G9wIi8+SJ8ww4anpr12 mT26fYO+LVSiNKY6eDa qPJjtEYEziW7xAXohWn O2GRXlCuEmrB08uUFlN EaaVg3giIpuyMvvNX3a LPSildsts155UtEuv5a dJOUuiQVuBRneEVI3A0 5dn3G8BSTiJMLtDBB1i WV9eG5uzVtehsgyzJCn dDsgdmVydGljYWwtYWx vI259WSXraGxuGpSmiZ MvI5xscvQTRB9qPpstj GQ+TGPhYLO5uTmaEUkr OKUxxD9mKQQlP1q4XlJ zZdK2AVuuX6JyhrX8NA IzsSNvIXDmdFPHyP4wn bycp5pqrdmhUvDbMKOb IUd5EUb0NFDbnUouMvL aLAT1LlF2MEW5aBVleU 7daPmnuyatbF2lTzr+R klOOjwvdGQ+PHRkIHN0 nObcEJpgZCIeqI3mIMH qI6i1YzFqHmW8QIrwD6 CxccS5IOFtoYXuVMSox CNUdX9dqskcj0hwjxuy LeFhZIJcCEz9QTe7WEY peBdtNqMyCWH8UcX9VZ V6wHKbiM4tnFhwbwfih G9wOyc+TVJOOjwvdGQ+ SDGeATN1aWkxRQvlTOF wfO3iYPTmY0q0EqBcBn P1WFpnQ3YwtjS9THLpa RPwZMSncINAuS9zlvcy s0iogcwmGqEeTPQfIZv 5KRx6COAzsJohWdLpSO A2PbY6BBJ6wLTltJ6mi BsbjxqiiG1zTkn+UGF5 GKI5EA75WY70L1DmFdr vdGFibGU+PHRhYmxlIH dpZHRoPScxMDAlJyBzd XwfLB7lKk7aQQCnROMs bGxh (more content not included)... Normal [facility] Interdisciplinary Note - Eric e Manageron 04-23-2021 Interdisciplinary Note - Manager Industrial ED: Dangelo H/P: Susanne Profit: partial PIS [...] Readmit: no MM: done OBS: done Normal [facility] Comment on above: Result Comment: Elec tronically Signed By: Scott LEZAMA, Avani Ventura\.adwoa\Date and Time Signed: 04/23/21 15:59 EDT BMPon 04-20-2021 Anion gap [Moles/Vol] 15 mmol/L Normal 6-16 [facility] Comment on above: Performed By: #### 2 [id number] #### [facility] [address] [place] [address] Calcium [Mass/Vol] 9.2 mg/dL Normal 8.9-11.1 [facility] Comment on above: Performed By: #### 2 [id number] #### [facility] [facility] [address] [place] [address] Chloride [Moles/Vol] 106 mmol/L Normal 101-111 [facility] Comment on above: Performed By: #### 2 610214, [id number] #### [facility] [address] [place] [address] CO2 [Moles/Vol] 25 mmol/L Normal 21-31 [facility] Comment on above: Performed By: #### 2 370767, [id number] #### [facility] [address] [place] [address] Creatinine [Mass/Vol] 0.6 mg/dL Normal 0.5-1.3 [facility] Comment on above: Performed By: #### 2 249727, [id number] #### [facility] [address] [place] [address] Glucose [Mass/Vol] 124 mg/dL Normal 55-199 [facility] Comment on above: Result Comment: If t his glucose result represents a fasting glucose, interpretation should refer to the following reference range: 55-99 mg/dL Performed By: #### 2 086737, [id number] #### [facility] [address] [place] [address] Potassium [Moles/Vol] 3.7 mmol/L Normal 3.5-5.3 [facility] Comment on above: Performed By: #### 2 007961, [id number] #### [facility] [address] [place] [address] Sodium [Moles/Vol] 142 mmol/L Normal 135-145 [facility] Comment on above: Performed By: #### 2 888606, [id number] #### [facility] [address] [place] [address] Urea nitrogen [Mass/Vol] 15 mg/dL Normal 5-21 [facility] Comment on above: Performed By: #### 2 438248, [id number] #### [facility] [address] [place] [address] Urea nitrogen/Creatinine [Mass ratio] 25 No Units High 10-20 [facility] Comment on above: Performed By: #### 2 253841, [id number] #### [facility] [address] [place] [address] Cardiology Progress Noteon 0 04-20-2021 Cardiology Progress Note Cardiology Consult Received- full note to follow Reason for consult- Chest Pain Lola Andino is an 80 year old female without significant cardiac history. She presented to [facility] 04/19/21 with complaints of chest pain. [...] seen and examined with Dr. Shin. Normal [facility] Comment on above: Result Comment: Elec tronically [...] History Heart failure: Father and Brother. Normal [facility] Comment on above: Result Comment: Elec tronically Signed By: Kip SINHA, Tristan Ashley\.br\Date and Time Signed: 04/20/21 16:31 EDT Discharge Instructionson Discharge Instructions [id number]#[id number]:127 Normal [facility] Inpatient Clinical Summaryon 04-20-2021 Inpatient Clinical Summary [place] [address] Clinical Summary Person Information: Name: LOLA ANDINO Age: 80 Years : 1940 Sex: Female PCP: LG OVIEDO DO Marital Status: Unknown Race: White Ethnicity: Non- or Language: Czech Visit Id: Visit Reason: Shortness of breath; Chest pain; SOB, CHEST PAIN Speciality: Acuity: Enc Type: Observation Med Service: Medical Arrival: 04/19/2021 14:36:15 Discharge: 04/20/2021 12:33:00 Dispo Type: Home (Routine DC) Address: [address] [place] [phone] Provider Notes: Diagnosis: 1:Chest pain; 2:Hypertension; 3:DVT [...] Physician: Follow up: With: Address: When: Franklin Landry[address] [address] [phone] [facility] (1) Within 1 to 2 weeks Comments: follow up for pulmonary nodule With: Address: When: Tristan Shin [address] [place] [phone] Business (1) Within 1 week Comments: Call for followup appointment With: Address: When: LG OVIEDO [address] [place] [phone] Business (1) 04/24/2021 3:00 PM Patient Education Information: Hypertension, Adult lisinopril Normal [facility] Inpatient Patient Summaryon 04-20-2021 Inpatient Patient Summary [address] [address] Patient Discharge Instructions PERSON INFORMATION Name: LOLA [...] None Follow up: With: Address: When: Franklin Landry[address] [phone] [facility] (1) Within 1 to 2 weeks Comments: follow up for pulmonary nodule With: Address: When: Tristan Escudero[address] [address] Business (1) Within 1 week Comments: Call for followup appointment With: Address: When: LG OVIEDO [facility] [place] [address] Business (1) 04/24/2021 3:00 PM In the [...] of breath. (more content not included)... Normal [facility] Interdisciplinary Note - Eric e Manageron 04-20-2021 Interdisciplinary Note - Manager Industrial Pt is awake and alert in bed, [...] per nursing. Anticipate DC home today 04/20. [facility] Comment on above: Result Comment: Elec tronically Signed By: Miguel LEZAMA, Yuli\.adwoa\Date and Time Signed: 04/20/21 10:09 EDT Interdisciplinary Note - Soc ial Workeron 04-20-2021 Interdisciplinary Note - Social Science Analyst Computer generated consult for advanced directives received. This SW spoke with the patient who states that she already has HCPOA and LW completed. This SW requested a copy when she or family is able to bring in so that it can be scanned into her EMR. Patient is very appreciative for checking with her. SW will remain available. Normal [facility] Message from Medicareon 03-24 Message from Medicare [id number]#[id number]:127 Normal [facility] Monitor Recordon 04-20-2021 Monitor Record [id number]#1.00CD:127 Normal [facility] Monitor Record [id number]#[id number]:127 Normal [facility] Pre-Certification Formon Pre-Certification Form [id number]#1.00CD:127 Normal [facility] Troponin 9 Hr.on 04-20-2021 Troponin I.cardiac [Mass/Vol] 17.60 pg/mL Normal 10.10-27.10 [facility] Comment on above: Result Comment: The 95% CI (Confidence Interval) PPV (Positive Predictive Value) for myocardial infarction in females is 38 pg/mL, in males 51 pg/mL. The results should be used in conjunction with clinical conditions of myocardial infarction. (Access High Sensitivity Troponin I Instructions For Use, Vira Strathmore, March 2018) Performed By: #### 2 947293, [id number] #### [facility] [address] [place] [address] UA With Cult Reflexon 2020 Bacteria LM Ql (Urine sed) TRACE Normal Trace [facility] Comment on above: Performed By: #### 2 888496, [id number] #### [facility] [address] [place] [address] Bilirubin Ql (U) Negative Normal Negative [facility] Comment on above: Performed By: #### 2 525070, [id number] #### [facility] [address] [place] [address] Clarity (U) SL CLOUDY Invalid Interpretation Code [facility] Comment on above: Performed By: #### 2 748485, [id number] #### [facility] [address] [place] [address] Color (U) YELLOW Normal Yellow [facility] Comment on above: Performed By: #### 2 455581, [id number] #### [facility] [address] [place] [address] Epithelial cells.squamous LM.HPF (Urine sed) [#/Area] 0-2 Normal 0-2 [facility] Comment on above: Performed By: #### 2 163126, [id number] #### [facility] [address] [place] [id number] Glucose Test strip (U) [Mass/Vol] Negative Normal Negative [facility] Comment on above: Performed By: #### 2 396389, 62666041 #### [facility] [address] [place] [address] Hemoglobin Ql (U) TRACE Abnormal Negative [facility] Comment on above: Performed By: #### 2 646838, [id number] #### [facility] [address] [place] [address] Ketones (U) [Mass/Vol] Negative Normal Negative [facility] Comment on above: Performed By: #### 2 594165, 78427068 #### [facility] [address] [place] [address] [place].plasma/Lithiu m.RBC (Bld) [Mass ratio] 0-3 Normal 0-3 [facility] Comment on above: Performed By: #### 2 020622, 96074474 #### [facility] [address] [place] [address] Mucus Ql (Urine sed) 1+ Normal [facility] Comment on above: Performed By: #### 2 457240, 19282210 #### [facility] [address] [place] [address] Nitrite Ql (U) Negative Normal Negative [facility] Comment on above: Performed By: #### 2 654919, 44516127 #### [facility] [address] [place] [address] pH (U) 6.5 [pH] Invalid Interpretation Code 5.0-9.0 [facility] Comment on above: Performed By: #### 2 874225, 62824986 #### [facility] [address] [place] [address] Protein (U) [Mass/Vol] Negative Normal Negative [facility] Comment on above: Performed By: #### 2 751195, 73839309 #### [facility] [address] [place] [address] Specific gravity (U) [Rel density] 1.020 Invalid Interpretation Code 1.005-1.030 [facility] Comment on above: Performed By: #### 2 512058, [id number] #### [facility] [address] [place], [place] [address] Type of Urine collection method Clean Catch Normal [facility] Comment on above: Performed By: #### 2 368231, 39309516 #### [facility] [address] [place] [address] Urobilinogen Qn (U) 0.2 {Raji'U}/dL Normal 0.0-1.0 [facility] Comment on above: Performed By: #### 2 373485, 78860871 #### [facility] [address] [place] [address] WBC Auto Ql (U) Negative Normal Negative [facility] Comment on above: Performed By: #### 2 556936, 05902949 #### [facility] [address] [place] [address] WBC LM.HPF (Urine sed) [#/Area] 0-5 Normal 0-5 [facility] Comment on above: Performed By: #### 2 273924, 64564484 #### [facility] [address] [place] [address] XR Chest Single Viewon 04-20 XR Chest [...] M.D. Transcribed by: ARBEN Technologist: MAYE, Noemy [facility] eGFRon 04-20-2021 GFR/1.73 sq M.predicted among blacks MDRD (S/P/Bld) [Vol rate/Area] mL/min/{1.73_m2} Normal >=59 [facility] Comment on above: Order Comment: Order added by Discern Expert. Result Comment: eGFR is race adjusted. AA=. Performed By: #### 2 980259, 14809181 #### [facility] [address] [place] [address] GFR/1.73 sq M.predicted among non-blacks MDRD (S/P/Bld) [Vol rate/Area] mL/min/{1.73_m2} Normal >=59 [facility] Comment on above: Order Comment: Order added by Discern Expert. Result Comment: Bottle Capping Machine Operator brady kidney disease could be indicated at eGFR's of less than 60 mL/min/1.73m2. Kidney failure is indicated at less than 15 mL/min/1.73m2. Performed By: #### 2 021503, [id number] #### [facility] [address] [place] [address] Auto Diffon 04-19-2021 Basophils/100 WBC (Bld) 0.8 % Normal 0.0-2.0 [facility] Comment on above: Order Comment: Order Added by Discern Expert. Performed By: #### 2 361564, 4228389, 4286098, 51887935, 02628604, 00272073, 96010118 ####[facility] [address] [place] [address] Basophils/Leukocytes Auto (Bld) [Pure # fraction] 0.0 E9/L Normal 0.0-0.2 [facility] Comment on above: Order Comment: Order Added by Discern Expert. Performed By: #### 2 857241, 2149135, 7233335, 33049007, 88169233, 46376152, 71156837 ####[place] [address] [place] [address] Eosinophils/100 WBC (Bld) 1.2 % Normal 0.0-8.0 [facility] Comment on above: Order Comment: Order Added by Discern Expert. Performed By: #### 2 957608, 9953108, 6356294, 30179649, 51280389, 85723818, 13296539 ####[facility] [address] [place] [address] Eosinophils/Leukocyte s Auto (Bld) [Pure # fraction] 0.1 E9/L Normal 0.0-0.5 [facility] Comment on above: Order Comment: Order Added by Discern Expert. Performed By: #### 2 939142, 8474564, 0444314, 63956634, 33994296, 17124664, 43972113 ####[place] [address] [place] [address] Lymphocytes/100 WBC (Bld) 23.5 % Normal 14.0-50.0 [facility] Comment on above: Order Comment: Order Added by Discern Expert. Performed By: #### 2 498719, 4962276, 9269288, 87596459, 75983691, 91060780, 82826713 ####[place] [address] [place] [address] Lymphocytes/Leukocyte s Auto (Bld) [Pure # fraction] 1.0 E9/L Normal 1.0-4.0 [facility] Comment on above: Order Comment: Order Added by Discern Expert. Performed By: #### 2 391847, 8904545, 6323122, 43423901, 19521699, 94876567, 92686583 ####[address] [address] Monocytes/100 WBC (Bld) 8.8 % Normal 4.0-14.0 [facility] Comment on above: Order Comment: Order Added by Tamy Expert. Performed By: #### 2 890511, 9252941, 5435382, 26835601, 74668526, 03727997, 57799842 ####[address] [address] Monocytes/Leukocytes Auto (Bld) [Pure # fraction] 0.4 E9/L Normal 0.2-1.0 [facility] Comment on above: Order Comment: Order Added by Tamy Expert. Performed By: #### 2 008607, 9917445, 4043271, 23616115, 77405306, 57099819, 03651889 ####[place] [address] [place] [address] Neutrophils/100 WBC (Bld) 65.7 % Normal 36.0-75.0 [facility] Comment on above: Order Comment: Order Added by Discern Expert. Performed By: #### 2 901989, 4340620, 7717601, 35338485, 01176320, 68133418, 50943974 ####[place] [address] [place] [address] Neutrophils/Leukocyte s Auto (Bld) [Pure # fraction] 2.9 E9/L Normal 2.0-7.5 [facility] Comment on above: Order Comment: Order Added by Discern Expert. Performed By: #### 2 482353, 4588653, 7910474, 62727669, 24674462, 59122512, 42459472 ####[facility] [address] [place] [address] BMPon 04-19-2021 Creatinine [Mass/Vol] 0.9 mg/dL Normal 0.5-1.3 [facility] Comment on above: Performed By: #### 2 877955, 8797553, 2622046, 15756362, 43385942, 42045588, 58075230 ####[facility] [address] [place] [address] Urea nitrogen [Mass/Vol] 18 mg/dL Normal 5-21 [facility] Comment on above: Performed By: #### 2 700984, 6954192, 9823501, 20237818, 07393295, 23154846, 71799993 ####[facility] [address] [place] [address] Urea nitrogen/Creatinine [Mass ratio] 20 No Units Normal 10-20 [facility] Comment on above: Performed By: #### 2 883914, 3356226, 6351791, 94798202, 48834011, 08976482, 57960436 ####[facility] [address] [place] [address] Anion gap [Moles/Vol] 12 mmol/L Normal 6-16 [facility] Comment on above: Performed By: #### 2 763089, 7293326, 0195741, 92069086, 41115902, 51569855, 52816922 ####[facility] [address] [place] [address] Calcium [Mass/Vol] 9.2 mg/dL Normal 8.9-11.1 [facility] Comment on above: Performed By: #### 2 652314, 0185157, 4824900, 98260940, 13230225, 25624944, 36982288 ####[facility] [address] [place] [address] Chloride [Moles/Vol] 102 mmol/L Normal 101-111 [facility] Comment on above: Performed By: #### 2 673527, 8569000, 1879444, 12391303, 37107507, 45275057, 48887912 ####[facility] [address] [place] [address] CO2 [Moles/Vol] 27 mmol/L Normal 21-31 [facility] Comment on above: Performed By: #### 2 794192, 3412109, 8266104, 67465951, 35166716, 98226913, 76416080 ####[facility] [address] [place] [address] Glucose [Mass/Vol] 115 mg/dL Normal 55-199 [facility] Comment on above: Result Comment: If t his glucose result represents a fasting glucose, interpretation should refer to the following reference range: 55-99 mg/dL Performed By: #### 2 328270, 2241815, 8451756, 35945287, 18325280, 86236270, 73766755 ####[facility] [address] [place] [address] Potassium [Moles/Vol] 3.4 mmol/L Low 3.5-5.3 [facility] Comment on above: Performed By: #### 2 266846, 2912196, 4511581, 41996816, 22486582, 88773174, 08426493 ####[facility] [address] [place] [address] Sodium [Moles/Vol] 138 mmol/L Normal 135-145 [facility] Comment on above: Performed By: #### 2 464870, 5353924, 1169574, 10292734, 18815065, 11554225, 02273464 ####[facility] [address] [place] [address] BNPon 04-19-2021 Natriuretic peptide B (Bld) [Mass/Vol] 76 pg/mL Normal 5-80 [facility] Comment on above: Performed By: #### 2 211952, 3275186, 9168135, 32909243, 45734444, 78101017, 90741154 ####[facility] [address] [place] [address] CBC w/ Auto Diffon Erythrocyte distribution width (RBC) [Ratio] 13.1 % Normal 10.9-14.2 [facility] Comment on above: Performed By: #### 2 711211, 3390924, 8807278, 97993161, 50266520, 70697579, 30443596 ####[place] [address] [place] [address] Hematocrit (Bld) [Volume fraction] 36.6 % Normal 34.0-46.0 [facility] Comment on above: Performed By: #### 2 801592, 7269663, 8795856, 43939806, 58168436, 31981085, 63935194 ####[facility] [address] [place] [address] Hemoglobin (Bld) [Mass/Vol] 12.5 g/dL Normal 12.0-16.0 [facility] Comment on above: Performed By: #### 2 351307, 3289192, 8443826, 81312663, 21136481, 27253796, 13392436 ####[facility] [address] [place] [address] MCH (RBC) [Entitic mass] 33.0 pg Normal 27.0-34.0 [facility] Comment on above: Performed By: #### 2 914828, 8352366, 9876054, 46937004, 59841156, 08180149, 79507271 ####[place] [address] [place] [address] MCHC (RBC) [Mass/Vol] 34.0 g/dL Normal 31.4-36.0 [facility] Comment on above: Performed By: #### 2 646385, 0113213, 1725454, 75377625, 14645268, 15578002, 95037289 ####[place] [address] [place] [address] MCV (RBC) [Entitic vol] 97.2 fL Normal 80.0-100.0 [facility] Comment on above: Performed By: #### 2 678492, 2365801, 6975901, 43526453, 01787404, 11477732, 07168735 ####[address] [address] Platelet mean volume (Bld) [Entitic vol] 9.5 fL Normal 6.4-10.8 [facility] Comment on above: Performed By: #### 2 299086, 1779160, 8904053, 67428082, 11522892, 00862256, 47785743 ####[address] [address] Platelets (Bld) [#/Vol] 277.0 E9/L Normal 150.0-500.0 [facility] Comment on above: Performed By: #### 2 928894, 1430746, 5145576, 45835202, 74798530, 41293000, 65126306 ####[address] [address] RBC (Bld) [#/Vol] 3.8 E12/L Low 4.3-5.9 [facility] Comment on above: Performed By: #### 2 261286, 2488690, 6476422, 18247993, 71467043, 89360833, 01805122 ####[address] [address] WBC corrected for nucl RBC Auto (Bld) [#/Vol] 4.4 E9/L Normal 4.0-11.0 [facility] Comment on above: Performed By: #### 2 211131, 0696185, 5022456, 32357381, 02112558, 07674108, 54036167 ####[facility] [address] [place] [address] Consent for Treatmenton 03-23 Consent for Treatment [id number]:127 Normal [facility] ED Clinical Summaryon 2020 ED Clinical Summary [address] [address] ED Clinical Summary Person Information Name: LOLA ANDINO [place] Age: 80 Years : 1940 Sex: Female Language: Czech PCP: LG OVIEDO DO Marital Status: Unknown Visit Id: Visit Reason: Shortness of breath; Chest pain; CHEST PAIN Speciality: Acuity: 2 Enc Type: Emergency Med Service: Emergency Arrival: 04/19/2021 14:36:15 Discharge: LOS: 000 04:12 Checkin: 04/19/2021 14:36:15 Checkout: 04/19/2021 18:48:10 Dispo Type: Admitted as IP to [facility] EVENTS: Event Name Event Status Request [...] 04/19/2021 18:48:10 04/19/2021 18:48:10 04/19/2021 18:48:10 ADDRESS: [facility] [phone] PHYS DOC NOTES: MEDICAL INFORMATION: Prescriptions Given: PATIENT EDUCATION INFORMATION: Instructions: Follow up: DIAGNOSIS: 1:Chest pain; 2:Hypertension Normal [facility] ED Note-Physicianon 04-19-20 ED Note-Physician Basic Information Time Seen: Bailee Pireson PA-C 04/19/2021 14:54 Chief Complaint pt reports [...] was treated and evaluated by the Physician Organizational Psychologist. The attending physician was in the Emergency [...] 14:59:00) Lymph Auto: 23.5 % (04/19/21 14:59:00) King Auto: 8.8 % (04/19/21 14:59:00) Eos Auto: 1.2 % (04/19/21 14:59:00) Basophil Auto: 0.8 % (04/19/21 14:59:00) Neutro Absolute: 2.9 E9/L (04/19/21 14:59:00) Lymph Absolute: 1 E9/L (04/19/21 14:59:00) King Absolute: 0.4 E9/L (04/19/21 14:59:00) Eos Absolute: 0.1 E9/L (04/19/21 14:59:00) Basophil Abs (more content not included)... Normal [facility] Comment on above: Result Comment: Elec tronically Signed By: Bailee Pierson PA-C\.br\Date and Time Signed: 04/19/21 18:49 EDT\.br\Electronically Co-Signed By: Flynn Mittal DO\.br\Date and Time Co-Signed: 04/19/21 20:39 EDT ED Patient Education Noteon 04-19-2021 ED Patient Education Note Normal [facility] ED Patient Summaryon ED Patient Summary [place] [address] Patient Discharge Instructions Person Information Name: LOLA ANDINO Age: 80 Years Arrival Date: 04/19/2021 14:36:15 Discharge Diagnosis: 1:Chest pain; 2:Hypertension Primary Care Physician: LG OVIEDO DO Provider Information Primary Provider: Flynn Mittal DO Advanced Motion Picture Equipment Machinist:Bailee Pierosn PA-C The exam and treatment you received in the Emergency Department were for an urgent problem and are not intended as complete care. It is important that you follow up with a doctor, nurse practitioner, or physician?s merchandising assistant for ongoing care. If your symptoms [...] opioids can be used to help relieve szbydxwo-tc-bxylao pain and are often prescribed following a [...] be struggling with addiction, tell your health inpatient care manager rn and ask for guidance or call SAMHSA?S National Helpline at 9-934-679-RLOI. v Source: [place] Department of Health and Human Services/Center for Disease Control & Prevention [facility] Medications Given: Medication (more content not included)... Normal [facility] PT & PTTon 04-19-2021 aPTT Coag (PPP) [Time] 34.2 second(s) Normal 25.1-36.5 [facility] Comment on above: Result Comment: Hepa rin therapeutic range (represented by Anti-Factor Xa activity of 0.2 - 0.4 U/mL) corresponds to PTT of 56.6 - 109.0 sec. Performed By: #### 2 396879, 01063679 #### [facility] [address] [place] [address] INR Coag (PPP) [Relative time] 1.0 {INR} Invalid Interpretation Code [facility] Comment on above: Result Comment: INR results are specifically intended to assess patients stabilized on long-term Anticoagulation therapy suggested INR?s ?Less Intensive Anticoagulation? 2.0 ? 3.0 Conventional Range 3.0 ? 4.5 Performed By: #### 2 325304, [id number] #### [facility] [address] [place] [address] PT Coag (PPP) [Time] 11.7 second(s) Normal 10.2-12.9 [facility] Comment on above: Performed By: #### 2 777712, [id number] #### [facility] [address] [place] [address] Troponin 0 Hr.on 04-19-2021 Troponin I.cardiac [Mass/Vol] 4.00 pg/mL Low 10.10-27.10 [facility] Comment on above: Result Comment: The 95% CI (Confidence Interval) PPV (Positive Predictive Value) for myocardial infarction in females is 38 pg/mL, in males 51 pg/mL. The results should be used in conjunction with clinical conditions of myocardial infarction. (Access High Sensitivity Troponin I Instructions For Use, Vira Strathmore, March 2018) Performed By: #### 2 257644, [id number] #### [facility] [address] [place] [address] Troponin 3 Hr.on 04-19-2021 Troponin I.cardiac [Mass/Vol] 24.40 pg/mL Normal 10.10-27.10 [facility] Comment on above: Result Comment: The 95% CI (Confidence Interval) PPV (Positive Predictive Value) for myocardial infarction in females is 38 pg/mL, in males 51 pg/mL. The results should be used in conjunction with clinical conditions of myocardial infarction. (Access High Sensitivity Troponin I Instructions For Use, FTL SOLAR, March 2018) Performed By: #### 2 768618, [id number] #### [facility] [address] [place] [address] Troponin 6 Hr.on 04-19-2021 Troponin I.cardiac [Mass/Vol] 21.50 pg/mL Normal 10.10-27.10 [facility] Comment on above: Result Comment: The 95% CI (Confidence Interval) PPV (Positive Predictive Value) for myocardial infarction in females is 38 pg/mL, in males 51 pg/mL. The results should be used in conjunction with clinical conditions of myocardial infarction. (Moovly High Sensitivity Troponin I Instructions For Use, FTL SOLAR, March 2018) Performed By: #### 2 938765, [id number] #### [facility] [address] [place] [address] eGFRon 04-19-2021 GFR/1.73 sq M.predicted among blacks MDRD (S/P/Bld) [Vol rate/Area] mL/min/{1.73_m2} Normal >=59 [facility] Comment on above: Order Comment: Order added by Discern Expert. Result Comment: eGFR is race adjusted. AA=. Performed By: #### 2 [id number], [id number], [id number] ####[facility] [id number] [place] [address] GFR/1.73 sq M.predicted among non-blacks MDRD (S/P/Bld) [Vol rate/Area] 60 mL/min/1.73 m2 Normal >=59 [facility] Comment on above: Order Comment: Order added by Discern Expert. Result Comment: Bottle Capping Machine Operator brady kidney disease could be indicated at eGFR's of less than 60 mL/min/1.73m2. Kidney failure is indicated at less than 15 mL/min/1.73m2. Performed By: #### 2 [id number], [id number], [id number] ####[place] [id number] [place] [id number] Vital Signs Date Time Vital Sign Value Performing Clinician Facility 01-28-2025 08:32-0400 Body height 153.67 cm [facility] 01-28-2025 08:32-0400 Body mass index (BMI) [Ratio] 25.4 kg/m2 [facility] 01-28-2025 08:32-0400 Body weight 60.04 kg [facility] 01-28-2025 08:32-0400 Diastolic blood pressure 72 mm[Hg] [facility] 01-28-2025 08:32-0400 Heart rate 71 /min [facility] 01-28-2025 08:32-0400 Respiratory rate 12 /min [facility] 01-28-2025 08:32-0400 Systolic blood pressure 165 mm[Hg] [facility] 12-06-2024 10:39-0400 Body height 153.67 cm [facility] 12-06-2024 10:39-0400 Body mass index (BMI) [Ratio] 25.5 kg/m2 [facility] 12-06-2024 10:39-0400 Body weight 60.32 kg [facility] 12-06-2024 10:39-0400 Diastolic blood pressure 94 mm[Hg] [facility] 12-06-2024 10:39-0400 Heart rate 87 /min [facility] 12-06-2024 10:39-0400 Respiratory rate 12 /min [facility] 12-06-2024 10:39-0400 Systolic blood pressure 169 mm[Hg] [facility] 10-30-2024 08:28-0400 Body height 153.67 cm [facility] 10-30-2024 08:28-0400 Body mass index (BMI) [Ratio] 26.2 kg/m2 [facility] 10-30-2024 08:28-0400 Body weight 61.91 kg [facility] 10-30-2024 08:28-0400 Diastolic blood pressure 65 mm[Hg] [facility] 10-30-2024 08:28-0400 Heart rate 55 /min [facility] 10-30-2024 08:28-0400 Respiratory rate 12 /min [facility] 10-30-2024 08:28-0400 SaO2% (BldA) [Mass fraction] 98 % [facility] 10-30-2024 08:28-0400 Systolic blood pressure 130 mm[Hg] [facility] 05-02-2024 09:36-0400 Body height 153.67 cm [facility] 05-02-2024 09:36-0400 Body mass index (BMI) [Ratio] 27.8 kg/m2 [facility] 05-02-2024 09:36-0400 Body weight 65.77 kg [facility] 05-02-2024 09:36-0400 Diastolic blood pressure 73 mm[Hg] [facility] 05-02-2024 09:36-0400 Heart rate 65 /min [facility] 05-02-2024 09:36-0400 Respiratory rate 12 /min [facility] 05-02-2024 09:36-0400 Systolic blood pressure 130 mm[Hg] [facility] 03-22-2024 10:54-0400 Body height 153.67 cm [facility] 03-22-2024 10:54-0400 Body mass index (BMI) [Ratio] 27.6 kg/m2 [facility] 03-22-2024 10:54-0400 Body weight 65.37 kg [facility] 03-22-2024 10:54-0400 Diastolic blood pressure 89 mm[Hg] [facility] 03-22-2024 10:54-0400 Heart rate 71 /min [facility] 03-22-2024 10:54-0400 Respiratory rate 12 /min [facility] 03-22-2024 10:54-0400 Systolic blood pressure 139 mm[Hg] [facility] 02-28-2024 10:32-0400 Body height 153.67 cm [facility] 02-28-2024 10:32-0400 Body mass index (BMI) [Ratio] 27.7 kg/m2 [facility] 02-28-2024 10:32-0400 Body weight 65.48 kg [facility] 02-28-2024 10:32-0400 Diastolic blood pressure 71 mm[Hg] [facility] 02-28-2024 10:32-0400 Heart rate 82 /min [facility] 02-28-2024 10:32-0400 Respiratory rate 12 /min [facility] 02-28-2024 10:32-0400 Systolic blood pressure 180 mm[Hg] [facility] 12-22-2023 11:18-0400 Body height 153.67 cm [facility] 12-22-2023 11:18-0400 Body mass index (BMI) [Ratio] 28.6 kg/m2 [facility] 12-22-2023 11:18-0400 Body temperature 98.4 [degF] [facility] 12-22-2023 11:18-0400 Body weight 67.58 kg [facility] 12-22-2023 11:18-0400 Diastolic blood pressure 82 mm[Hg] [facility] 12-22-2023 11:18-0400 Heart rate 95 /min [facility] 12-22-2023 11:18-0400 SaO2% (BldA) [Mass fraction] 97 % [facility] 12-22-2023 11:18-0400 Systolic blood pressure 156 mm[Hg] [facility] 11-09-2023 14:06-0400 Body height 153.67 cm [facility] 11-09-2023 14:06-0400 Body mass index (BMI) [Ratio] 29.6 kg/m2 [facility] 11-09-2023 14:06-0400 Body weight 69.9 kg [facility] 11-09-2023 14:06-0400 Diastolic blood pressure 94 mm[Hg] [facility] 11-09-2023 14:06-0400 Heart rate 90 /min [facility] 11-09-2023 14:06-0400 Respiratory rate 12 /min [facility] 11-09-2023 14:06-0400 Systolic blood pressure 168 mm[Hg] [facility] 05-10-2023 09:00-0400 Body height 160.02 cm L[facility] Other [employer] Other 05-10-2023 09:00-0400 Body mass index (BMI) [Ratio] 26.6 kg/m2 L[facility] Other [employer] Other 05-10-2023 09:00-0400 Body weight 68.13 kg Lg Ball Other [employer] Other 05-10-2023 09:00-0400 Diastolic blood pressure 78 mm[Hg] [facility] Other [employer] Other 05-10-2023 09:00-0400 Respiratory rate 12 /min L[facility] Ball Other [employer] Other 05-10-2023 09:00-0400 Systolic blood pressure 185 mm[Hg] [facility] Other [employer] Other 03-25-2023 13:30-0400 Body height 160.02 cm L[facility] Other [employer] Other 03-25-2023 13:30-0400 Body mass index (BMI) [Ratio] 25.58 kg/m2 [facility] Other [employer] Other 03-25-2023 13:30-0400 Body weight 65.5 kg L[facility] Ball Other [employer] Other 03-25-2023 13:30-0400 Diastolic blood pressure 78 mm[Hg] [facility] Other [employer] Other 03-25-2023 13:30-0400 Respiratory rate 12 /min Lg Oviedo Other [employer] Other 03-25-2023 13:30-0400 Systolic blood pressure 187 mm[Hg] L[facility] Other [employer] Other Encounters Encounter Date Encounter Type Care Provider Facility Start: 01-28-2025 End: 01-28-[address] [facility] Work Phone: Start: 01-28-2025 End: 01-28-2025 Patient encounter procedure [facility] Physician [facility] Work Phone: Start: 12-06-2024 End: 12-06-2024 Patient encounter procedure [facility] Physician [facility] Work Phone: Start: 10-31-2024 Non-patient / Non-visit [facility] [employer] Work Phone: Start: 10-30-2024 End: 10-30-[address] [facility] Work Phone: Start: 10-30-2024 End: 10-30-2024 Patient encounter procedure [facility] Physician [facility] Work Phone: Start: 05-02-2024 End: 05-02-[address] [facility] Work Phone: Start: 05-02-2024 End: 05-02-2024 Patient encounter procedure [facility] Physician [facility] Work Phone: Start: 04-27-2024 Non-patient / Non-visit [facility] Physician [facility] [employer] Work Phone: Start: 03-22-2024 End: 03-22-[address] [facility] Work Phone: Start: 03-22-2024 End: 03-22-2024 Patient encounter procedure [facility] Physician [facility] Work Phone: Start: 02-29-2024 Non-patient / Non-visit [facility] Physician [facility] Work Phone: Start: 02-28-2024 End: 02-28-[address] [facility] Work Phone: Start: 02-28-2024 End: 02-28-2024 Patient encounter procedure [facility] Physician [facility] Medical [facility] Work Phone: Start: 12-28-2023 End: 12-28-[address] [facility] Work Phone: Start: 12-28-2023 End: 12-28-2023 Patient encounter procedure [facility] Physician [facility] Work Phone: Start: 12-22-2023 End: 12-22-2023 Patient encounter procedure [facility] Physician [facility] Work Phone: Start: 11-09-2023 End: 11-09-[address] [facility] Work Phone: Start: 11-09-2023 End: 11-09-2023 Patient encounter procedure [facility] Physician [facility] Work Phone: Start: 10-24-2023 Non-patient / Non-visit [facility] Work Phone: Start: 10-14-2023 End: 10-14-[address] [facility] Work Phone: Start: 10-14-2023 End: 10-14-2023 Patient encounter procedure [facility] Physician [facility] Work Phone: Start: 08-23-2023 End: 08-23-2023 ambulatory LORI H TIMMIS Not Available Start: 07-20-2023 End: 07-20-2023 ambulatory LORI H TIMMIS Not Available Start: 06-17-2023 End: 06-17-2023 ambulatory Lg Oviedo Other [facility] [employer] Other Start: 06-17-2023 Nursing evaluation o f patient and report Lg Ov[facility]o [facility] Start: 05-19-2023 End: 05-19-2023 ambulatory Lg Oviedo Other [employer] Other Start: 05-19-2023 Telephone encounter Lg Oviedo [facility] Start: 05-17-2023 End: 05-17-2023 ambulatory Lg Oviedo Other [employer] Other Start: 05-17-2023 Telephone encounter Lg [facility]iedo [facility] Start: 05-12-2023 End: 05-12-2023 ambulatory Lg Oviedo Other [employer] Other Start: 05-12-2023 Telephone encounter Lg Oviedo [facility] Start: 05-10-2023 End: 05-10-2023 ambulatory Lg Oviedo Other [employer] Other Start: 05-10-2023 Patient encounter procedure Lg Oviedo [facility] Start: 04-18-2023 End: 04-18-2023 ambulatory Lg Oviedo Other [employer] Other Start: 04-18-2023 Telephone encounter Lg Oviedo [facility] Start: 04-07-2023 End: 04-07-2023 ambulatory Lg Oviedo Other [employer] Other Start: 04-07-2023 Telephone encounter Lg Ball [facility] Start: 04-05-2023 End: 04-05-2023 ambulatory Lg Oviedo Other [employer] Other Start: 04-05-2023 Telephone encounter Lg Ball [facility] Start: 04-01-2023 End: 04-01-2023 ambulatory Lg Ball Other [employer] Other Start: 04-01-2023 Telephone encounter Lg Ball [facility] Start: 03-25-2023 End: 03-25-2023 ambulatory Lg Oviedo Other [employer] Other Start: 03-25-2023 Office outpatient vi sit [...] lic 2000 panel - Serum or Plasma [facility] enter US scan of abdominal aorta [facility] XR Chest 2 Views [facility] XR Knee - left [address] [facility] Immunizations Immunization Date Immunization Notes Care Provider Fa cility 04-17-2020 pneumococcal polysaccharide vaccine, 23 valent Lg Oviedo Other [facility] 11-28-2017 diphtheria, tetanus toxoids and acellular pertussis vaccine, unspecified formulation Lg Oviedo Other [facility] 10-25-2016 tetanus and diphther ia toxoids, adsorbed, preservative free, for adult use (5 Lf of tetanus toxoid and 2 Lf of diphtheria toxoid) [facility] 10-25-2016 tetanus toxoid, redu tammy diphtheria toxoid, and acellular pertussis vaccine, adsorbed Lg Ov[place]o Other [facility] [employer] Other Payers Date Payer Category Payer Medicare [id number] 1960 Medicare [id number] 1940 Unknown [id number] 1940 Unknown [id number] [id number] [id number] 1940 Unknown [id number] [id number] [id number] 1940 Unknown [id number] 2.16.84 [id number] 1940 Unknown [id number] 1940 Unknown [id number] Medicare Medicare Outpatient [id number] Unknown [id number] 2.1 [id number] Unknown [facility] Health Claims [id number] Social History Date Type Detail Facility Sex Assigned At [employer] Other Start: 1940 Sex Assigned At Female F [facility] Start: 12-22-2023 Tobacco smoking stat [facility] Never smoked tobacco (finding) [facility] Start: 10-30-2024 End: 01-28-2025 Sex Female (finding) [facility] Clinical Notes 11-28-2017 to 10-30-2024 Note Date [...] specified organisms noneactive December 06, 2024 10:06am [facility] Work Phone: [phone] 657-702410-27-2023 Evaluation note* Encounter Date Diagnosis Assessment Notes Treatment Notes Treatment Clinical Notes May, Dysuria (ICD-10 - R30.0) [employer] Other 09-26-2023 Evaluation note* Encounter Date Diagnosis Assessment Notes Treatment Notes Treatment Clinical Notes Apr, Pulmonary nodule (ICD-10 - R91.1) CXR 6mm - 04/2021, CT small nodules - 04/2022 CT small nodules, stable - 04/2023 [employer] Other 09-19-2023 Evaluation note* Encounter Date Diagnosis [...] medication use (ICD-10 - Z79.899) Check labs [employer] Other 08-15-2023 Evaluation note* Encounter Date Diagnosis Assessment Notes Treatment Notes Treatment Clinical Notes Mar, Dizziness (ICD-10 - R42) [employer] Other 08-11-2023 Evaluation note* Encounter Date Diagnosis Assessment Notes Treatment Notes Treatment Clinical Notes Mar, Claustrophobia (ICD-10 - F40.240) [employer] Other 08-04-2023 Evaluation note* Encounter Date Diagnosis [...] related to other complaints or separate problem [employer] Other 07-22-2022 Note From: Genesis Denny To: HV - Administrative; Sent: 05/20/2021 08:15:18 EDT Show up: 12/18/2021 08:15:00 EDT Subject: 8 month follow up Due Date/Time: 01/17/2022 08:15:00 EDT Reminder/Recall 8 month follow up with Dr. Jacques (December) tried calling twice and patient hung up on my both times after i said hello. [facility]09-29-2021 Note From: Genesis Denny To: HV - Administrative; Sent: 05/20/2021 08:14:37 EDT Show up: 08/19/2021 07:14:00 EST Subject: 4 month follow up Due Date/Time: 09/19/2021 07:14:00 EST Reminder/Recall 4 month follow up with Haley (2021)[facility]-30-[facility] NoteAdmission Information Admitting Physician - MARLEN SINHA, Pola Consulting Physician - Kip SINHA, Tristan Ashley Admitting Diagnoses: 1. Chest pain, unspecified, 04/20/2021 2. Essential (primary) hypertension, 04/20/2021 3. Encounter for prophylactic measures, unspecified, 04/20/2021 Hospital Course Pt is a 80 F admitted with complaints of chest pain. pt was ruled out for ACS with negative cardiacenzymes, no EKG changes. Pt was seen by [facility] cardiology, recommended outpatient stress test and started on lisinopril 5 mg po q day for uncontrolled HTN. pt with some complaints of dysuria, negative UA, if persists to follow up with urology outpatient. Pt discharged home in improved condition to follow up with PCP and [facility] cardiology outpatient. d/w patient and daughter at [...] 14:59:00) Lymph Auto: 23.5 % (04/19/21 14:59:00) King Auto: 8.8 % (04/19/21 14:59:00) Eos Auto: 1.2 % (04/19/21 14:59:00) Basophil Auto: 0.8 % (04/19/21 14:59:00) Neutro Absolute: 2.9 E9/L (04/19/21 14:59:00) Lymph Absolute: 1 E9/L (04/19/21 14:59:00) King Absolute: 0.4 E9/L (04/19/21 14:59:00) Eos Absolute: [...] aspirin 81 mg O (more content not included)...[facility] Comment: Electronically Signed By: ÁNGELA SINHA, Patrick\.br\Date and Time Signed: 04/20/21 13:09 [id number] NoteChief Complaint Sharp pains in chest weakness [...] 14:59:00) Lymph Auto: 23.5 % (04/19/21 14:59:00) King Auto: 8.8 % (04/19/21 14:59:00) Eos Auto: 1.2 % (04/19/21 14:59:00) Basophil Auto: 0.8 % (04/19/21 14:59:00) Neutro Absolute: 2.9 E9/L (04/19/21 14:59:00) Lymph Absolute: 1 E9/L (04/19/21 14:59:00) King Absolute: 0.4 E9/L (04/19/21 14:59:00) Eos Absolute: [...] = 1 tab(s), Tab-Chew, (more content not included)...[facility] Comment: Electronically Signed By: Susanne SINHA, Andre\.br\Date and Time Signed: 04/19/21 21:01 [id number] History general Narrative - Reported* Type Description Date Medical History Bronchiectasis without complicat ion Medical History Essential hypertension Medical History Elevated cholesterol Surgical History BTL 11/28/2017 Hospitalization History see surgical history [employer] Other 04-09-2018 History general Narrative - Reported* Type Description Date Medical History Bronchiectasis without complicat ion Medical History Essential hypertension Medical History Elevated cholesterol Medical History BRVO left eye Surgical History BTL 11/28/2017 Hospitalization History see surgical history [facility] [employer] Other evaluation [facility]No [facility] [employer] Other evaluation noteNo assessment information available [facility] Work Phone: evaluation note* Diagnosis Onset Date Resolution Status Bronchiectasis acute Hypertension acute Pulmonary nodule acute Suspected sleep apnea acute Fatigue noneactive [facility] Work Phone: evaluation note* Diagnosis Onset Date Resolution Status Bronchiectasis acute Hypertension acute Pulmonary nodule acute Suspected sleep apnea acute Fatigue noneactive Hypertension acute Left knee pain acute Acute bronchitis due to other specified organisms noneactive [facility] Work Phone: evaluation note* Diagnosis Onset Date Resolution Status Hypertension acute Left knee pain acute Acute bronchitis due to other specified organisms noneactive Anemia acute Bronchiectasis acute Chronic venous insufficiency of lower extremity acute Hypertension acute [facility] Work Phone: Evaluation note* Diagnosis Onset Date Resolution Status Anemia acute Bronchiectasis acute Chronic venous insufficiency of lower extremity acute Hypertension acute Hypertension acute Left knee pain acute Primary osteoarthritis of knee acute [facility] Work Phone: Evaluation note* Diagnosis Onset Date Resolution Status Anemia acute Bronchiectasis acute Chronic venous insufficiency of lower extremity acute Hypertension acute Hypertension acute Left knee pain acute Primary osteoarthritis of knee acute Hypertension acute Primary osteoarthritis of knee acute [facility] Work Phone: Evaluation note* Diagnosis Onset Date Resolution Status Admit Date Anemia acute October 30 8:26am Bronchiectasis acute October 8:26am Chronic venous insufficiency of lower extremity acute October 30, 2024 8:26am Hypertension acute October 30, 2024 8:26am Primary osteoarthritis of knee acute October 30, 2024 8:26am Pulmonary nodule acute October 302024 8:26am 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 Clinical Notes Include MRI [employer] Other Summary Purpose Family History Relationship Condition [...] and content) DATE CREATED AUTHOR 03/14/2022 [facility] DATE CREATED AUTHOR AUTHOR'S ORGANIZ ATION 08/18/2022 [facility] DATE CREATED AUTHOR AUTHOR'S ORGANIZ ATION 08/23/2023 [facility] EPIC REASON FOR [...] BE BASED ON THE PRIMARY CLINICAL RECORDS. [facility]. provides no warranty or guarantee of the accuracy or completeness of information in this document.
== END 2025-02-08 07:47 | disposition home or self-care (01) ==
LOC: RAD 07:48
PROVIDERS: PCP Internal Medicine; Visit Provider Internal Medicine
DX: R05.9 Cough, unspecified (principal)
CPT/HCPCS: 71046

== ENCOUNTER 2025-03-26 07:24 | Outpatient (OUT) | payer MEDICARE, SELFPAY ==
--- OUTSIDE RECORDS SUMMARY | 2025-03-26 07:27 | XMS_ITS | CCD ---
Author Organization [facility] CliniSymt Care Team Providers Care Fashion Artist Name Role Phone PREET, DR CASTANON Admitting [...] Clindamycin Drug Allergy 05-12-20 Unknown Reaction [facility] Repository (12 sources) Penicillin Drug Allergy Unknown [facility] Repository (19 sources) Aspirin Drug Allergy 06-05-20 Unknown, Unknown Reaction [facility] Comment on above: Onset Date: 06/05/20 15 (19 sources) Ciprofloxacin Drug Allergy 06-26-20 Unknown, Unknown Reaction [facility] Comment on above: Onset Date: 06/26/20 15 (11 sources) Clindamycin Drug Allergy Unknown [employer] Other (19 sources) Ibuprofen Drug Allergy 06-05-20 Unknown, Unknown Reaction [facility] Comment on above: Onset Date: 06/05/20 15 (11 sources) Fluticasone Propionate *NASAL AGENTS - SYSTEMIC AN Propensity to adverse reactions 06-26-20 Unknown [employer] Other (8 sources) Penicillins Allergy to substance 05-12-20 Unknown Reaction [facility] (8 sources) Fluticasone Propionate *NASAL Allergy to substance 05-12-20 Unknown Reaction [facility] Medications Current Medications Medication Drug [...] 02-26-2024 Chronic Other aftercare (2 sources) 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; Translations: [OTH BROKER IN CHARGE CURRENT DRUG THERAPY] Onset: 05-10-2022 Episodic Other [...] Basophils (Bld) [#/Vol] Automated basophil count 0.0-0.1 [facility] Basophils/100 WBC Auto (Bld) on 10-31-2024 Basophils/100 WBC (Bld) Automated basophil % 0.2-2.0 [facility] Eosinophils/100 WBC Auto (Bl d)on 10-31-2024 Eosinophils/100 WBC (Bld) Automated eosinophil % 0.9-7.0 [facility] Erythrocyte distribution wid th Auto (RBC) [Ratio]on 10-31-2024 Erythrocyte distribution width (RBC) [Ratio] Erythrocyte distribution width [Ratio] by Automated count 11.0-15.0 [facility] Hematocrit Auto (Bld) [Volum e fraction]on 10-31-2024 Hematocrit (Bld) [Volume fraction] Hematocrit [Volume Fraction] of Blood by Automated count Low 36.0-48.0 [facility] Hemoglobin [Mass/volume] in Bloodon 10-31-2024 Hemoglobin (Bld) [Mass/Vol] Hemoglobin [Mass/volume] in Blood Low 12.0-16.0 [facility] Laboratory - Hematology and Cell countson 10-31-2024 Immature granulocytes/100 WBC (Bld) 0.0 % 0.0-0.5 [facility] Leukocytes [#/volume] correc pool for nucleated erythrocytes in Blood by Automated counon 10-31-2024 WBC corrected for nucl RBC Auto (Bld) [#/Vol] Leukocytes [#/volume] corrected for nucleated erythrocytes in Blood by Automated coun 4.0-11.0 [facility] Lymphocytes Auto (Bld) [#/Vo l]on 10-31-2024 Lymphocytes (Bld) [#/Vol] Lymphocytes [#/volume] in Blood by Automated count 1.2-3.8 [facility] Lymphocytes/100 WBC Auto (Bl d)on 10-31-2024 Lymphocytes/100 WBC (Bld) Lymphocytes/100 leukocytes in Blood by Automated count 20.5-60.0 [facility] MCH Auto (RBC) [Entitic mass ]on 10-31-2024 MCH (RBC) [Entitic mass] MCH [Entitic mass] by Automated count 26.7-34.0 [facility] MCHC Auto (RBC) [Mass/Vol]on 10-31-2024 MCHC (RBC) [Mass/Vol] MCHC [Mass/volume] by Automated count 29.9-35.2 [facility] MCV Auto (RBC) [Entitic vol] on 10-31-2024 MCV (RBC) [Entitic vol] MCV [Entitic volume] by Automated count High 81.0-99.0 [facility] Monocytes Auto (Bld) [#/Vol] on 10-31-2024 Monocytes (Bld) [#/Vol] Automated blood monocyte count 0.3-0.8 [facility] Monocytes/100 WBC Auto (Bld) on 10-31-2024 Monocytes/100 WBC (Bld) Automated monocyte % 1.7-12.0 [facility] Neutrophils Auto (Bld) [#/Vo l]on 10-31-2024 Neutrophils (Bld) [#/Vol] Neutrophils [#/volume] in Blood by Automated count 1.4-6.5 [facility] Neutrophils/100 WBC Auto (Bl d)on 10-31-2024 Neutrophils/100 WBC (Bld) Automated neutrophil % 43.0-75.0 [facility] No Panel Informationon 10-31 Eosinophils # (Auto) 0.2 10 3/uL 0.0-0.7 [facility] Immature Granulocyte # (Auto) 0.00 10 3/uL 0.00-0.03 [facility] Platelet mean volume Auto (B ld) [Entitic vol]on 10-31-2024 Platelet mean volume (Bld) [Entitic vol] Platelet mean volume [Entitic volume] in Blood by Automated count 9.5-13.5 [facility] Platelets Auto (Bld) [#/Vol] on 10-31-2024 Platelets (Bld) [#/Vol] Platelets [#/volume] in Blood by Automated count 150-450 [facility] RBC Auto (Bld) [#/Vol]on RBC (Bld) [#/Vol] Erythrocytes [#/volume] in Blood by Automated count Low 4.20-5.40 [facility] Basophils Auto (Bld) [#/Vol] on 04-27-2024 Basophils (Bld) [#/Vol] 0.0 10 3/uL 0.0-0.1 [facility] Basophils/100 WBC Auto (Bld) on 04-27-2024 Basophils/100 WBC (Bld) 0.9 % 0.2-2.0 [facility] Eosinophils/100 WBC Auto (Bl d)on 04-27-2024 Eosinophils/100 WBC (Bld) 2.6 % 0.9-7.0 [facility] Erythrocyte distribution wid th Auto (RBC) [Ratio]on 04-27-2024 Erythrocyte distribution width (RBC) [Ratio] 12.6 % 11.0-15.0 [facility] Hematocrit Auto (Bld) [Volum e fraction]on 04-27-2024 Hematocrit (Bld) [Volume fraction] 34.6 % Low 36.0-48.0 [facility] Hemoglobin [Mass/volume] in Bloodon 04-27-2024 Hemoglobin (Bld) [Mass/Vol] 11.7 g/dL Low 12.0-16.0 [facility] Iron binding capacity [Mass/ volume] in Serum or Plasmaon 04-27-2024 Iron binding capacity [Mass/Vol] 232.0 ug/dL Low 250.0-450.0 [facility] Iron saturation [Mass Fracti on] in Serum or Plasmaon 04-27-2024 Iron saturation [Mass fraction] 36.6 % [facility] Laboratory - Chemistry and C hemistry - challengeon 04-27-2024 Cobalamin (Vitamin B12) [Mass/Vol] 947 pg/mL 232-1245 [facility] Comment on above: Performed at: [address] [id number] Director: Jose Miguel Smith PhD, Phone: [phone] Ferritin [Mass/Vol] 218.0 ng/mL 8.0-252.0 [facility] Iron [Mass/Vol] 85.0 ug/dL 50.0-170.0 [facility] Laboratory - Hematology and Cell countson 04-27-2024 Immature granulocytes/100 WBC (Bld) 0.2 % 0.0-0.5 [facility] Leukocytes [#/volume] correc pool for nucleated erythrocytes in Blood by Automated counon 04-27-2024 WBC corrected for nucl RBC Auto (Bld) [#/Vol] 4.6 10 3/uL 4.0-11.0 [facility] Lymphocytes Auto (Bld) [#/Vo l]on 04-27-2024 Lymphocytes (Bld) [#/Vol] 1.1 10 3/uL Low 1.2-3.8 [facility] Lymphocytes/100 WBC Auto (Bl d)on 04-27-2024 Lymphocytes/100 WBC (Bld) 24.5 % 20.5-60.0 [facility] MCH Auto (RBC) [Entitic mass ]on 04-27-2024 MCH (RBC) [Entitic mass] 33.1 pg 26.7-34.0 [facility] MCHC Auto (RBC) [Mass/Vol]on 04-27-2024 MCHC (RBC) [Mass/Vol] 33.8 g/dL 29.9-35.2 [facility] MCV Auto (RBC) [Entitic vol] on 04-27-2024 MCV (RBC) [Entitic vol] 98.0 fL 81.0-99.0 [facility] Monocytes Auto (Bld) [#/Vol] on 04-27-2024 Monocytes (Bld) [#/Vol] 0.4 10 3/uL 0.3-0.8 [facility] Monocytes/100 WBC Auto (Bld) on 04-27-2024 Monocytes/100 WBC (Bld) 9.5 % 1.7-12.0 [facility] Neutrophils Auto (Bld) [#/Vo l]on 04-27-2024 Neutrophils (Bld) [#/Vol] 2.9 10 3/uL 1.4-6.5 [facility] Neutrophils/100 WBC Auto (Bl d)on 04-27-2024 Neutrophils/100 WBC (Bld) 62.3 % 43.0-75.0 [facility] No Panel Informationon 04-27 Eosinophils # (Auto) 0.1 10 3/uL 0.0-0.7 [facility] Immature Granulocyte # (Auto) 0.01 10 3/uL 0.00-0.03 [facility] Platelet mean volume Auto (B ld) [Entitic vol]on 04-27-2024 Platelet mean volume (Bld) [Entitic vol] 10.4 fL 9.5-13.5 [facility] Platelets Auto (Bld) [#/Vol] on 04-27-2024 Platelets (Bld) [#/Vol] 289 10 3/uL 150-450 [facility] RBC Auto (Bld) [#/Vol]on RBC (Bld) [#/Vol] 3.53 10 6/uL Low 4.20-5.40 [facility] Basophils Auto (Bld) [#/Vol] on 02-29-2024 Basophils (Bld) [#/Vol] 0.0 10 3/uL 0.0-0.1 [facility] Basophils/100 WBC Auto (Bld) on 02-29-2024 Basophils/100 WBC (Bld) 0.9 % 0.2-2.0 [facility] Eosinophils/100 WBC Auto (Bl d)on 02-29-2024 Eosinophils/100 WBC (Bld) 4.4 % 0.9-7.0 [facility] Erythrocyte distribution wid th Auto (RBC) [Ratio]on 02-29-2024 Erythrocyte distribution width (RBC) [Ratio] 12.4 % 11.0-15.0 [facility] Hematocrit Auto (Bld) [Volum e fraction]on 02-29-2024 Hematocrit (Bld) [Volume fraction] 34.2 % Low 36.0-48.0 [facility] Hemoglobin [Mass/volume] in Bloodon 02-29-2024 Hemoglobin (Bld) [Mass/Vol] 11.4 g/dL Low 12.0-16.0 [facility] Iron binding capacity [Mass/ volume] in Serum or Plasmaon 02-29-2024 Iron binding capacity [Mass/Vol] 237.0 ug/dL Low 250.0-450.0 [facility] Iron saturation [Mass Fracti on] in Serum or Plasmaon 02-29-2024 Iron saturation [Mass fraction] 46.0 % [facility] Laboratory - Chemistry and C hemistry - challengeon 02-29-2024 Cobalamin (Vitamin B12) [Mass/Vol] 800.0 pg/mL 193.0-986.0 [facility] Ferritin [Mass/Vol] 206.0 ng/mL 8.0-252.0 [facility] Iron [Mass/Vol] 109.0 ug/dL 50.0-170.0 [facility] Laboratory - Hematology and Cell countson 02-29-2024 Immature granulocytes/100 WBC (Bld) 0.2 % 0.0-0.5 [facility] Leukocytes [#/volume] correc pool for nucleated erythrocytes in Blood by Automated counon 02-29-2024 WBC corrected for nucl RBC Auto (Bld) [#/Vol] 4.6 10 3/uL 4.0-11.0 [facility] Lymphocytes Auto (Bld) [#/Vo l]on 02-29-2024 Lymphocytes (Bld) [#/Vol] 1.2 10 3/uL 1.2-3.8 [facility] Lymphocytes/100 WBC Auto (Bl d)on 02-29-2024 Lymphocytes/100 WBC (Bld) 26.9 % 20.5-60.0 [facility] MCH Auto (RBC) [Entitic mass ]on 02-29-2024 MCH (RBC) [Entitic mass] 32.6 pg 26.7-34.0 [facility] MCHC Auto (RBC) [Mass/Vol]on 02-29-2024 MCHC (RBC) [Mass/Vol] 33.3 g/dL 29.9-35.2 [facility] MCV Auto (RBC) [Entitic vol] on 02-29-2024 MCV (RBC) [Entitic vol] 97.7 fL 81.0-99.0 [facility] Monocytes Auto (Bld) [#/Vol] on 02-29-2024 Monocytes (Bld) [#/Vol] 0.5 10 3/uL 0.3-0.8 [facility] Monocytes/100 WBC Auto (Bld) on 02-29-2024 Monocytes/100 WBC (Bld) 11.1 % 1.7-12.0 [facility] Neutrophils Auto (Bld) [#/Vo l]on 02-29-2024 Neutrophils (Bld) [#/Vol] 2.6 10 3/uL 1.4-6.5 [facility] Neutrophils/100 WBC Auto (Bl d)on 02-29-2024 Neutrophils/100 WBC (Bld) 56.5 % 43.0-75.0 [facility] No Panel Informationon 02-28 Eosinophils # (Auto) 0.2 10 3/uL 0.0-0.7 [facility] Immature Granulocyte # (Auto) 0.01 10 3/uL 0.00-0.03 [facility] Platelet mean volume Auto (B ld) [Entitic vol]on 02-29-2024 Platelet mean volume (Bld) [Entitic vol] 11.3 fL 9.5-13.5 [facility] Platelets Auto (Bld) [#/Vol] on 02-29-2024 Platelets (Bld) [#/Vol] 283 10 3/uL 150-450 [facility] RBC Auto (Bld) [#/Vol]on RBC (Bld) [#/Vol] 3.50 10 6/uL Low 4.20-5.40 [facility] Laboratory - Chemistry and C hemistry - challengeon 12-28-2023 Bilirubin Ql (U) Negative [facility] Glucose (U) [Mass/Vol] Negative [facility] Ketones Ql (U) Negative [facility] pH (U) 6.0 [pH] [facility] Specific gravity (U) [Rel density] 1.015 [facility] Urobilinogen (U) [Mass/Vol] 0.2 mg/dL [facility] Laboratory - Specimen inform ationon 12-28-2023 Appearance (U) Cloudy [facility] Color (U) Yellow [facility] Laboratory - Urinalysison Leukocyte esterase Test strip Ql (U) 2+ [facility] Nitrite Ql (U) Positive [facility] Protein Ql (U) 2+ [facility] No Panel Informationon 12-27 Urine Occult Blood 2+ [facility] Basophils Auto (Bld) [#/Vol] on 11-09-2023 Basophils (Bld) [#/Vol] 0.0 10 3/uL 0.0-0.1 [facility] Basophils/100 WBC Auto (Bld) on 11-09-2023 Basophils/100 WBC (Bld) 0.8 % 0.2-2.0 [facility] Eosinophils/100 WBC Auto (Bl d)on 11-09-2023 Eosinophils/100 WBC (Bld) 3.6 % 0.9-7.0 [facility] Erythrocyte distribution wid th Auto (RBC) [Ratio]on 11-09-2023 Erythrocyte distribution width (RBC) [Ratio] 12.3 % 11.0-15.0 [facility] Estimated glomerular filtrat ion rate (GFR) non- Americanon 11-09-2023 GFR/1.73 sq M.predicted among non-blacks MDRD (S/P/Bld) [Vol rate/Area] mL/min/{1.73_m2} >=60 [facility] Globulin Calc (S) [Mass/Vol] on 11-09-2023 Globulin (S) [Mass/Vol] 3.2 g/dL [facility] Hematocrit Auto (Bld) [Volum e fraction]on 11-09-2023 Hematocrit (Bld) [Volume fraction] 36.2 % 36.0-48.0 [facility] Hemoglobin [Mass/volume] in Bloodon 11-09-2023 Hemoglobin (Bld) [Mass/Vol] 11.9 g/dL 12.0-16.0 [facility] Laboratory - Chemistry and C hemistry - challengeon 11-09-2023 Albumin [Mass/Vol] 3.7 g/dL 3.4-5.[address] [facility] ALP [Catalytic activity/Vol] 152 U/L 46-116 [facility] ALT [Catalytic activity/Vol] 20 U/L 14-59 [facility] AST [Catalytic activity/Vol] 15 U/L 15-37 [facility] Bilirubin [Mass/Vol] 0.2 mg/dL 0.2-1.0 [facility] Calcium [Mass/Vol] 9.1 mg/dL 8.5-10.[address] [facility] Chloride [Moles/Vol] 105 mmol/L 98-107 [facility] CO2 [Moles/Vol] 30.6 mmol/L 21.0-32.0 [facility] Creatinine [Mass/Vol] 0.83 mg/dL 0.55-1.02 [facility] GFR/1.73 sq M.predicted MDRD (S/P/Bld) [Vol rate/Area] mL/min/{1.73_m2} >=60 [facility] Glucose [Mass/Vol] 107 mg/dL 74-[address] [facility] Potassium [Moles/Vol] 3.4 mmol/L 3.5-5.1 [facility] Protein [Mass/Vol] 6.9 g/dL 6.4-8.[address] [facility] Sodium [Moles/Vol] 142 mmol/L 136-[address] [facility] TSH Qn 1.941 m[IU]/L 0.358-3.740 [facility] Urea nitrogen [Mass/Vol] 21.0 mg/dL 7.0-18.0 [facility] Urea nitrogen/Creatinine [Mass ratio] 25.3 mg/mg [facility] Laboratory - Hematology and Cell countson 11-09-2023 Immature granulocytes/100 WBC (Bld) 0.2 % 0.0-0.5 [facility] Leukocytes [#/volume] correc pool for nucleated erythrocytes in Blood by Automated counon 11-09-2023 WBC corrected for nucl RBC Auto (Bld) [#/Vol] 5.1 10 3/uL 4.0-11.0 [facility] Lymphocytes Auto (Bld) [#/Vo l]on 11-09-2023 Lymphocytes (Bld) [#/Vol] 1.4 10 3/uL 1.2-3.8 [facility] Lymphocytes/100 WBC Auto (Bl d)on 11-09-2023 Lymphocytes/100 WBC (Bld) 27.2 % 20.5-60.0 [facility] MCH Auto (RBC) [Entitic mass ]on 11-09-2023 MCH (RBC) [Entitic mass] 32.5 pg 26.7-34.0 [facility] MCHC Auto (RBC) [Mass/Vol]on 11-09-2023 MCHC (RBC) [Mass/Vol] 32.9 g/dL 29.9-35.2 [facility] MCV Auto (RBC) [Entitic vol] on 11-09-2023 MCV (RBC) [Entitic vol] 98.9 fL 81.0-99.0 [facility] Monocytes Auto (Bld) [#/Vol] on 11-09-2023 Monocytes (Bld) [#/Vol] 0.5 10 3/uL 0.3-0.8 [facility] Monocytes/100 WBC Auto (Bld) on 11-09-2023 Monocytes/100 WBC (Bld) 9.5 % 1.7-12.0 [facility] Neutrophils Auto (Bld) [#/Vo l]on 11-09-2023 Neutrophils (Bld) [#/Vol] 3.0 10 3/uL 1.4-6.5 [facility] Neutrophils/100 WBC Auto (Bl d)on 11-09-2023 Neutrophils/100 WBC (Bld) 58.7 % 43.0-75.0 [facility] No Panel Informationon 11-08 Eosinophils # (Auto) 0.2 10 3/uL 0.0-0.7 [facility] Immature Granulocyte # (Auto) 0.01 10 3/uL 0.00-0.03 [facility] Platelet mean volume Auto (B ld) [Entitic vol]on 11-09-2023 Platelet mean volume (Bld) [Entitic vol] 11.2 fL 9.5-13.5 [facility] Platelets Auto (Bld) [#/Vol] on 11-09-2023 Platelets (Bld) [#/Vol] 336 10 3/uL 150-450 [facility] RBC Auto (Bld) [#/Vol]on RBC (Bld) [#/Vol] 3.66 10 6/uL 4.20-5.40 [facility] Serum or plasma albumin/glob ulin mass ratioon 11-09-2023 Albumin/Globulin [Mass ratio] 1.2 {ratio} [facility] Serum or plasma anion gap de terminationon 11-09-2023 Anion gap [Moles/Vol] 9.8 mmol/L [facility] Laboratory - Chemistry and C hemistry - challengeon 10-14-2023 Bilirubin Ql (U) Negative [facility] Glucose (U) [Mass/Vol] Negative [facility] Ketones Ql (U) Negative [facility] pH (U) 6.5 [pH] [facility] Specific gravity (U) [Rel density] 1.010 [facility] Urobilinogen (U) [Mass/Vol] 0.2 mg/dL [facility] Laboratory - Specimen inform ationon 10-14-2023 Appearance (U) Clear [facility] Color (U) Yellow [facility] Laboratory - Urinalysison Leukocyte esterase Test strip Ql (U) Negative [facility] Nitrite Ql (U) Negative [facility] Protein Ql (U) Trace [facility] No Panel Informationon 10-14 Urine Occult Blood Negative [facility] Urinalysis - DIPSTICKon 10-2 Appearance (U) cloudy [place] [employer] Other Bilirubin Ql (U) Negative [employer] Other Color (U) yellow [employer] Other Glucose Ql (U) Negative [place] [employer] Other Hemoglobin Ql (U) 6.5 [employer] Other Ketones Ql (U) Negative [place] [employer] Other Leukocyte esterase Test strip Ql (U) large [employer] Other Nitrite Ql (U) Negative [place] [employer] Other pH (U) 5 [pH] [employer] Other Protein Ql (U) 17 [place] [employer] Other Specific gravity (U) [Rel density] 1.020 [employer] Other Urobilinogen (U) [Mass/Vol] Negative [employer] Other Urinalysis - DIPSTICK [employer] Other CBC AUTO DIFFon 08-10-2022 BASO # 0.0 103/ul Normal 0.0-0.1 [facility] Comment on above: Performed By: #### C BC #### [facility] [address] [place] [address] Dr. Bo Brown Basophils/100 WBC (Bld) 0.9 % Normal 0.2-2.0 [facility] Comment on above: Performed By: #### C BC #### [facility] [address] [place] [address] Dr. Bo Brown EO # 0.1 103/ul Normal 0.0-0.7 [facility] Comment on above: Performed By: #### C BC #### [facility] [address] [place] [address] Dr. Bo Brown Eosinophils/100 WBC (Bld) 2.1 % Normal 0.9-7.0 [facility] Comment on above: Performed By: #### C BC #### [facility] [address] [place] [address] Dr. Bo Brown Erythrocyte distribution width (RBC) [Ratio] 12.2 % Normal 11.0-15.0 [facility] Comment on above: Performed By: #### C BC #### [facility] [address] [place] [address] Dr. Bo Brown Hematocrit (Bld) [Volume fraction] 34.1 % Critically low 36.0-48.0 [facility] Comment on above: Performed By: #### C BC #### [facility] [address] [place] [address] Dr. Bo Brown Hemoglobin (Bld) [Mass/Vol] 11.3 g/dL Critically low 12.0-16.0 [facility] Comment on above: Performed By: #### C BC #### [facility] [address] [place] [address] Dr. Bo Brown IG # 0.01 10e3/ul Normal 0.00-0.03 [facility] Comment on above: Performed By: #### C BC #### [facility] [address] [place] [address] Dr. Bo Brown IG % 0.2 % Normal 0.0-0.5 [facility] Comment on above: Performed By: #### C BC #### [facility] [address] [place] [address] Dr. Bo Brown LYMPH # 1.2 103/ul Normal 1.2-3.8 [facility] Comment on above: Performed By: #### C BC #### [facility] [address] [place] [address] Dr. Bo Brown Lymphocytes/100 WBC (Bld) 28.8 % Normal 20.5-60.0 [facility] Comment on above: Performed By: #### C BC #### [facility] [address] [place] [address] Dr. Bo Brown MANUAL DIFF REQ NO Normal [facility] Comment on above: Performed By: #### C BC #### [facility] [address] [place] [address] Dr. Bo Brown MCH (RBC) [Entitic mass] 32.6 pg Normal 26.7-34.0 [facility] Comment on above: Performed By: #### C BC #### [facility] [address] [place] [address] Dr. Bo Brown MCHC (RBC) [Mass/Vol] 33.1 g/dL Normal 29.9-35.2 [facility] Comment on above: Performed By: #### C BC #### [facility] [address] [address] [address] Bo Brown MCV (RBC) [Entitic vol] 98.3 fL Normal 81.0-99.0 [facility] Comment on above: Performed By: #### C BC #### [facility] [address] [address] [address] Bo Brown MONO # 0.4 103/ul Normal 0.3-0.8 [facility] Comment on above: Performed By: #### C BC #### [facility] [address] [address] [address] Bo Brown Monocytes/100 WBC (Bld) 9.7 % Normal 1.7-12.0 [facility] Comment on above: Performed By: #### C BC #### [facility] [address] [address] [address] Bo Brown NEUT # 2.5 103/ul Normal 1.4-6.5 [facility] Comment on above: Performed By: #### C BC #### [facility] [address] [address] [address] Bo Brown Neutrophils/100 WBC (Bld) 58.3 % Normal 43.0-75.0 [facility] Comment on above: Performed By: #### C BC #### [facility] [address] [address] [address] Bo Brown Platelet mean volume (Bld) [Entitic vol] 10.5 fL Normal 9.5-13.5 [facility] Comment on above: Performed By: #### C BC #### [facility] [address] [address] [address] Bo Brown PLT 294 103/ul Normal 150-450 [facility] Comment on above: Performed By: #### C BC #### [facility] [address] [address] [address] Bo Brown RBC 3.47 106/ul Critically low 4.20-5.40 [facility] Comment on above: Performed By: #### C BC #### [facility] [address] [place] [address] Dr. Bo Brown WBC 4.2 103/ul Normal 4.0-11.0 [facility] Comment on above: Performed By: #### C BC #### [facility] [address] [place] [address] Dr. Bo Brown IRON AND TIBCon 08-10-2022 % SATURATION 41.4 % Normal [facility] Comment on above: Performed By: #### B 12FOL, FETIBC #### [facility] [address] [place] [address] Dr. Bo Brown Iron [Mass/Vol] 91.0 ug/dL Normal 50.0-170.0 [facility] Comment on above: Performed By: #### B 12FOL, FETIBC #### [facility] [address] [place] [address] Dr. Bo Brown TIBC DIRECT 220.0 ug/dL Critically low 250.0-450.0 [facility] Comment on above: Performed By: #### B 12FOL, FETIBC #### [facility] [address] [place] [address] Dr. Bo Brown VIT B12 AND FOLATEon 022 Cobalamin (Vitamin B12) [Mass/Vol] 987.0 pg/mL Critically high 193.0-986.0 [facility] Comment on above: Performed By: #### B 12FOL, FETIBC #### [facility] [address] [place] [address] Dr. Bo Brown FOLATE 17.70 ng/mL Normal 8.60-58.90 [facility] Comment on above: Performed By: #### B 12FOL, FETIBC #### [facility] [address] [place] [address] Dr. Bo Brown CBC AUTO DIFFon 05-06-2022 BASO # 0.0 103/ul Normal 0.0-0.1 [facility] Comment on above: Performed By: #### C BC #### [facility] [address] [place] [address] Dr. Bo Brown Basophils/100 WBC (Bld) 0.7 % Normal 0.2-2.0 [facility] Comment on above: Performed By: #### C BC #### [facility] [address] [place] [address] Dr. Bo Brown EO # 0.1 103/ul Normal 0.0-0.7 [facility] Comment on above: Performed By: #### C BC #### [facility] [address] [place] [address] Dr. Bo Brown Eosinophils/100 WBC (Bld) 2.6 % Normal 0.9-7.0 [facility] Comment on above: Performed By: #### C BC #### [facility] [address] [place] [address] Dr. Bo Brown Erythrocyte distribution width (RBC) [Ratio] 12.7 % Normal 11.0-15.0 [facility] Comment on above: Performed By: #### C BC #### [facility] [address] [place] [address] Dr. Bo Brown Hematocrit (Bld) [Volume fraction] 35.2 % Critically low 36.0-48.0 [facility] Comment on above: Performed By: #### C BC #### [facility] [address] [place] [address] Dr. Bo Brown Hemoglobin (Bld) [Mass/Vol] 11.6 g/dL Critically low 12.0-16.0 [facility] Comment on above: Performed By: #### C BC #### [facility] [address] [place] [address] Dr. Bo Brown IG # 0.02 10e3/ul Normal 0.00-0.03 [facility] Comment on above: Performed By: #### C BC #### [facility] [address] [place] [address] Dr. Bo Brown IG % 0.5 % Normal 0.0-0.5 [facility] Comment on above: Performed By: #### C BC #### [facility] [address] [place] [address] Dr. Bo Brown LYMPH # 1.1 103/ul Critically low 1.2-3.8 [facility] Comment on above: Performed By: #### C BC #### [facility] [address] [place] [address] Dr. Bo Brown Lymphocytes/100 WBC (Bld) 25.8 % Normal 20.5-60.0 [facility] Comment on above: Performed By: #### C BC #### [facility] [address] [place] [address] Dr. Bo Brown MANUAL DIFF REQ NO Normal [facility] Comment on above: Performed By: #### C BC #### [facility] [address] [place] [address] Dr. Bo Brown MCH (RBC) [Entitic mass] 32.6 pg Normal 26.7-34.0 [facility] Comment on above: Performed By: #### C BC #### [facility] [address] [place] [address] Dr. Bo Brown MCHC (RBC) [Mass/Vol] 33.0 g/dL Normal 29.9-35.2 [facility] Comment on above: Performed By: #### C BC #### [facility] [address] [place] [address] Dr. Bo Brown MCV (RBC) [Entitic vol] 98.9 fL Normal 81.0-99.0 [facility] Comment on above: Performed By: #### C BC #### [facility] [address] [place] [address] Dr. Bo Brown MONO # 0.4 103/ul Normal 0.3-0.8 [facility] Comment on above: Performed By: #### C BC #### [facility] [address] [place] [address] Dr. Bo Brown Monocytes/100 WBC (Bld) 9.5 % Normal 1.7-12.0 [facility] Comment on above: Performed By: #### C BC #### [facility] [address] [place] [address] Dr. Bo Brown NEUT # 2.6 103/ul Normal 1.4-6.5 [facility] Comment on above: Performed By: #### C BC #### [facility] [address] [place] [address] Dr. Bo rBown Neutrophils/100 WBC (Bld) 60.9 % Normal 43.0-75.0 [facility] Comment on above: Performed By: #### C BC #### [facility] [address] [place] [address] Dr. Bo Brown Platelet mean volume (Bld) [Entitic vol] 10.7 fL Normal 9.5-13.5 [facility] Comment on above: Performed By: #### C BC #### [facility] [address] [place] [address] Dr. Bo Brown PLT 284 103/ul Normal 150-450 [facility] Comment on above: Performed By: #### C BC #### [facility] [address] [place] [address] Dr. Bo Brown RBC 3.56 106/ul Critically low 4.20-5.40 [facility] Comment on above: Performed By: #### C BC #### [facility] [address] [place] [address] Dr. Bo Brown WBC 4.3 103/ul Normal 4.0-11.0 [facility] Comment on above: Performed By: #### C BC #### [facility] [address] [place] [address] Dr. Bo Brown PROF CHEM 8 (BAS METB)on Anion gap [Moles/Vol] 9.7 mmol/L Normal [facility] Comment on above: Performed By: #### B MP #### [facility] [address] [place] [address] Dr. Bo Brown Calcium [Mass/Vol] 8.8 mg/dL Normal 8.5-10.1 [facility] Comment on above: Performed By: #### B MP #### [facility] [address] [place] [address] Dr. Bo Brown Chloride [Moles/Vol] 103 mmol/L Normal 98-107 [facility] Comment on above: Performed By: #### B MP #### [facility] [address] [address] [address] Bo Brown CO2 [Moles/Vol] 28.9 mmol/L Normal 21.0-32.0 [facility] Comment on above: Performed By: #### B MP #### [facility] [address] [address] [address] Bo Brown Creatinine [Mass/Vol] 0.69 mg/dL Normal 0.55-1.02 [facility] Comment on above: Performed By: #### B MP #### [facility] [address] [address] [address] Bo Brown EGFR-AF BAHRAINI >60 Normal >=60 [facility] Comment on above: Performed By: #### B MP #### [facility] [address] [address] [address] Bo Brown EGFR-NON AF BAHRAINI >60 Normal >=60 [facility] Comment on above: Performed By: #### B MP #### [facility] [address] [address] [address] Bo Brown Glucose [Mass/Vol] 111 mg/dL Critically high 74-106 [facility] Comment on above: Performed By: #### B MP #### [facility] [address] [address] [address] Bo Brown Potassium [Moles/Vol] 3.6 mmol/L Normal 3.5-5.1 [facility] Comment on above: Performed By: #### B MP #### [facility] [address] [address] [address] Bo Brown Sodium [Moles/Vol] 138 mmol/L Normal 136-145 [facility] Comment on above: Performed By: #### B MP #### [facility] [address] [address] [address] Bo Brown Urea nitrogen [Mass/Vol] 15.0 mg/dL Normal 7.0-18.0 [facility] Comment on above: Performed By: #### B MP #### [facility] [address] [place], [place] [address] Dr. Bo Brown Urea nitrogen/Creatinine [Mass ratio] 21.7 mg/mg Normal [facility] Comment on above: Performed By: #### B MP #### [facility] [address] [place], [place] [address] CHEST WO CONon [...] by: GALA TRIANA Date: 2022-04-07 06:28 Normal [facility] XR CHEST 2 Von 01-06-2022 XR [...] by: MALCOM MAGANA Date: 2022-01-06 09:15 Normal [facility] Consent for Treatmenton 0 Consent for Treatment [id number] 1 [id number] [email or web address]:127 Normal [facility] Coding Summary.on 05-18-2021 Coding Summary. CD:[id number]:[id number] RZa3oQk+PGhlYWQ+PE1 JIQLuI80kkDXgvI2QC5 iVPS2XLIGYKVQDQJ1GR D5tiSU8YTefU3NiyrAq FdqteCEzXS07IPx7OWN 2dGrpKDxoaZ0nhQQgT2 l3XyBpET02eX62EIazH SIwZaC4ViGnukwdrIHh P3jkQlIebLVgIni+PHR hYmxlIHdpZHRoPScxMD ViDhMhvIdeTH6hDy2oK GVyLWNvbGxhcHNlOiBj l8mdXNVtGJalTL4kzPf bS2BjvZF1YLPgm8g1Sw 48dHI+SBMnTKV2aDucD Lgrr087FnTxw8uoXLO8 gCDnGRlkYUE8U43nh5T 6QDDwFVWyJLA7qWX5rU 8dkZjmjaheV9PxgLLrF fH5LMA1wIPviF8myRfz kumlyK4vFzl+G11ZNF2 JAYHLZG9ZMpw0H3YjSz wvdHI+AA46NIGfSB07l YZfaEVhv7skuQv5EcAt TGBjFYY5uYwvFQbbg2E qZXEhF34anZHpe6L8HD PbtZwkhYQnIvVeuJB5j C2lUGkarmqxb4wpvoey Gzupa2obvs47kI24J58 dSBqaNDJqZOB2IPNaID TolRbdrv7mfQ6dAy9+I Icub8hix2cmkYo4JfPc ECTzgfAysMrxCBP6d6Y xEy90F0MooDgkq8UaXh t7ml30jLYpa6H9nRK8J QdhYMYwwY6kULhmKzW1 MZDwQpSypL40vMTyMYk gYf9heEencPcnYK5cXM DryngwQTTmlN0bQRJzi DIaiPhfZW2uRAIqjslp b681AsOtFIE6SYOpbHQ mK8MaoZ7iRiIsWVKyKO ZoI8RyhNCqBBknW546N KclQlP1CYWqujSgC3Ob KXRgdBpzZyY5s9Q1Pr1 Xw3JafvbxDTF6FNaeJL T3NwS6WwQqXlM4J3OoG hl1XOQfjSekCM5eB1Ea PKZhamfteyvgdYL5LAM wERMvqS69qTEbUOghKw 5cl5A2h585HHGuPTQce S88Im8ivLnvWVDusRGD wU4tkdwep5afcfldMzV pKTWzCRi3PUl5VRFisC ziFyLhUVW4ObW3JCU8c ZAtiA3arGxuxujfkH3u Oyc+Q06unT3mJRC0ONY 1echnPNSgsiLcLA38ZX 38T1BwPdbrnHBgxWU+P HAqwfRmbOgaPY1pMnFg m3jhm6KsAGotF6QuJTO qYVnvRqa2OBKiFQU8mQ K4oG6tDSDeTRkmw1C0v JB7S4YitnIwyw9fs5zl HKApVVmxK85evTNhx2H 1UCGinRN8VHBbrNojEi SweW82Nnp+PGNvbGdyb 6HsLxtcp8xtc7yhvLe1 IjMwJSIgdmFsaWduPSJ 4s1JiBi99W56hCJbaWO RoPSIxNSUiIHZhbGlnb b3gwG9oAn0+PGNvbCB3 zXZ5bM0kOLBiEiO2CWl mD606HrSnfWPfGmhxn2 npc8jvnNl3AwNpDFGej rYvqYliFMC0z5XtUn67 V77fLQkpAVHqRNYaOFT wMTRjzBcbxn2psC2zNi 8+JW5kj5cgqd11nH54m HI+MSYrKAR7hJusNKiq DCJwmX9dQAqaVuZ5OTB mJsOodH10lJRoHRgsQf 7rdTvtcRwtRT5wHZRmm wtkx888ZdZir6agAPIt mCOdZRtfCEB3J29fb2G 8KVQgAHIfVJR8kFD4vC 1hbGlnbjogbGVmdDsgd kUwuGsrKNnpRTzaY938 IHRvcDsnPlBhdGllbnQ gXoOuUZt4Q5KnZcy0AT WlaUrxGR0kqECaWSfvV w5vrHcvwAjoAE5qXZKr lbabi697XmFjv6ohDTP otOSaOUlaNUS9Q33yf8 T3ZYNmSJXzJOI4wIJ2j P7hmNbyvnkxfAIxiWmn uySvsBkmQCpsABrgC79 6IHRvcDsnPkJpcnRoIE NwcIR2AT69WL26wVJwn 1C2cXL4L2SsBGNfydos carocBO2CQAxFMUmiN6 1Pz1iiGgqOt3wUCSrIO Z0ORShyQYuF1RakH0hG nBeSCJtPZIgL8IgcJBg MObmL256KUiaJoB7BWV ynnQfJ1MnIJFedJmeKb I3o0U2Kj6PW6B9XO78I O51qZLpb7I1aCK7J4Mv NNSgrxttjgsbkOL9PYO qDIYwwW18Ta4snYmaHa 1eIDCiODN2MCNvjCEeN 9YraG3zGiDkZKFvHQZf P4TjkUPaKAkyT447BDo mJlA8QOSimvInW0CiUK MnuMffRiP3t7O8Df5WG Zk4JL57ZB29gTSvs1S1 sKE2B4TnAGSubjmejqt gmVF4MNPtKLVteB32Nu 4ixHpiVa2cSJItLPV8O ALhvDSzV2JraI2cLtWu YUUmUDZoT6DlpHVwHYg gH785OGrjTfO4IKNyqj ZuW4LlZAIbdTgiDkW1i 4M6Ak7VUDYmCY12JDP8 xXZ0CC42SH98R0NvVkt vdGFibGU+PHRhYmxlIH dpZHRoPScxMDAlJyBzd FagQP4dZm2mUYDfVIEq iHvyxCFqIgTlk4xvZFU yZVavRV8tkMjmH7BjtW T3VTLha1y5Qo31S71cV 3JvdXA+JSEtcLK2qFJ7 vZ6zNyVbKpG7QEzcJ09 7WsSdoRLbOodsb9zfu5 ukaIc1QxC4ZFIreeUbq TgoDPQ5e2CmKl79Q47e IHdpZHRoPSIxNSUiIHZ idGttpf9amF7xOj8+PG VpqFC8iZE3oC0hHiNcZ tH7QZbpF234CfTccITa Jwzgq8oqv3xkjEj9FiU zIVYgzjGvvXjcHNC6z7 GpPl91S7IzvHhge0IxF mf1bc80rGChn5Q3vUV2 S2SaCLLojljaoPTvbPq gJE1aQHWzwjinQKTzlR 7sVEBxH2b1WyYwExA6I ZgjU4SzmvA1EKUzeSRi OCbhAEP7O21jm4P4WEO oGIZcXLF4kEA5gI2brO lnbjogbGVmdDsgdmVyd VuvFDizBWnoR685EIZy hWrsFKKfgV6hMXHddHL kyYaoTC5oGMNypizbQk uLSn8KHtdkQ6ZPP0aGL tFRBW97JG17cHYrl8O9 xMN0J6RdYWHuwfedhtj pzVJ5VOTiJHAoiN53vE ObFRznEx7wz2U7m976X RIyJCUdmB38Fc1fwDhk YYOuhGEUsM7owgqew1u xympnIhKiFBByFCr8FR g1YSTwiGnrBnDyCLI0M zK1EXH2nNZuuO1goAnb qlyxsF0gHin+MTAvMzE vMTkzOTwvdGQ+PHRkIH Q9tNcqTGmuCDYgfW6xQ HLlT7m8UfRlTrM8GQlu B1QnNCFwikljQd26cK3 mYnZqKsX0HVqsF3Tjnu D3RHMjoNGjZSerIML8Y 96ph5R4DZHlXASeAXU5 jCO6gO3urFbwrpjswPO mdDsgdmVydGljYWwtYW qhQ260ESUrqVjyGbfiD QjxSGJaRP94SF69pYNg x8N8hKZ4X2WhJNVxdiv xqwgvqQP4BQPlEPIckT 94fJEdAXgbQc2jw2M9z 771OCDfPVEgxL51Tw7c iOraGXLepXFQwJ0ibbt uw3lnvnuyAqSyDYDcZM x6AAb8YWKqiUnePkZuG AF3GrY3VXG6eXWfdW4x pUoravkfxF9xQhy+RmV uDXhbGX50CP64iAVec1 Z0rWF8C6OeLMTnnxnsv luniCA3KHBbRPOhkN80 mBNmRKqkSq9xu7C2u47 6KTWsFYZfcS31Xc6gnT thMYVwtJTRwA1bnpcao 3okdygtOyPpLYPmKRh2 OGb4MEAheXctOcGjTCB 0LgK8FDM6oEKtqC0tmJ msnamakZ9yUwx+T3V0c QJ2jUPunQvywNU+PC90 df97G4YxDegeNpf9HXZ gYER8mOF0qR8hEGRpEP dgk6R5dIX2C1SpvkVai r3im8ovKEFbCRttO62p fLQvt0S5ANPpgNH4SGL xrMbxZbKceO76Ybb+PG WnyLusj2UsYgjhg1hpj 7nmvMz3YwMeIMUiysSa uEyeHAR6o1RwCc58G27 sIHdpZHRoPSIzMCUiIH EdbEtave6boY1pIg0+P KGnrJS1mVO6iD0dKfAv GoM1CLayA639NpZtrUW jGmdxb2avm9ouoVf9Gu EkJVDmrmQrkGchIOK5l 2DrXa39G7RqbVoxl4Oe Ufj8pt51uWHjx8P5dMH 7R4HkADTojfvzoRXjrZ xyBP6dMLQonkakBOUhe G9oIOJsD4k3AnTpTmJ8 GAnnJ4BablU1FCVveDW dFVYurAZErR6ooimvs8 xplinpSmUzTUAnEGf7M Qi9FGLqrLtaHrKwLQP2 WsK7TET3iVVtsB0rdYn zmcwwaC5yEsi+UGh5c2 rqfLEmCD8dpHO1DF52G F78gBLyw6G6fOK6Z9Ie BGMvuisessryrRH1HMA rJGLxdX06Wl4qgVitRa 8wZDDrEFS7XINbzLNkE 8DlkZ8jRtHuIHEvBUTu H4TmlBWjTMdoY230GRn mFoM1FHMjghOoL0KeTS SpkKdmMfO1k8W1Lw8LC G56RA75MH14zTRek3F1 eYM4C1QfUFLuqgwnxon xhPW1TOLjLXTsmK30Ye 4esWyvKz2hALEtAMI4U ECfeWHpQ3ZmvK1gGyUv LINmRHDxL2VipZNzEEt lZ472WLqcSmI1YXIcwq YgH4OkAJQluZhtYyS3c 3U5Ll8PHd33WP46PN19 rRXwx2L2nDI1J0WcMEN ecrznkjupiQN7DRFbCE HgnM60Bk5crCsdPw9rL YUrBNA9CXAbcDXoZ6Cf lE2dNaImJDPdYKRvG2V rtVSvYRqxR002TBnlRs D7OZCmbrMpT3ShFXTaz BgdDyQ7v1C8Yg7XFTjq ykd0I0CqGkiuyTI+PC9 8WZRcFI14uSFucHBfj5 nwdSa8GqDpBXRcSGE0i IggLLzjb0VoMPOnK17j bGFw (more content not included)... [facility] Coding Summary. CD:[id number] KFa5jMx+PGhlYWQ+PE1 XCHJxH03wjNHpfB6GI5 yIVI2QKJGGLBMWOV5AT T9tjXL8AJhbY8AtkjUe SdsijKCfAA79UJd4CUJ 7eZwbEOqyoU4wsHJmK8 n8CvOuNX75qX60HRwtN KGzFeS7VrZljujugJNp H9odQxJedILdTmt+PHR hYmxlIHdpZHRoPScxMD UbTeXdrHktXA2iDq8fV GVyLWNvbGxhcHNlOiBj m2muOJMgGCxvJJ5spOr wJ7ZilOI8RZXnp2l7Ud 48dHI+HUXhGPD1hSgrR Mayb382LyNmt6zxDEE7 oJUwLEmuIHG0O52cd6W 1SCIzHBGtCRJ7jMN4kU 3nwSjzqsvjJ5VglSEtI nK2RRJ9wRFghE3mzHfi sobgdU1tBfe+E24RYA0 DXXRTAM3LSgo1Z2DyNm wvdHI+VU60KWTpWV03e SNjaPGrr8nvoGa7WiIu ZRYbEWT0gKjiSPksk2F gJUAyF69zgFMqk0V4CG JasKvcaATfVmPwwYV4j Z7pYEmtvqyww8mhexxc Euumo9tpsr49bB99N37 hRXljACRwJVZ3ZIDjQW AnjLrurt6wrK2rXk2+I Znsy5oes6zfkGk4PiYp VUJuxcGixRanAKY4v1C cDo39Q3SrwZdbc6QdBf d8pe36iMTrc9V8gRR9S ZfiLKWogC5aZKgwEdG9 YLVlGpGhhU36qXWbOMc nXv7bxRsziZbwOB9tHT JkutyhJBDunD4bQSZxj JEkwIwqRK1fHEMpubii c081VwRqLAF9JJFevSR cU0LlxE2kAbVxXZRzVJ AzF6VdtCNuHGusD745M ClhBiP3DHXfhnSzT9Fh VXQboNdrAdB2g6C5Bo4 Ji5PytefmEZK0ZUkeNQ Y3AsTpThXnQpB2T5EnI gj0WPKinDjlWG3xT6We HQOrwfxyeyfnpVE8ACO hBNYchD45xUNmAUrxQv 5ep0V1l076UJSvCOSgc L29Hf2xrOslNJOjfDSD dP9qusneb5yeusgwRxQ wNDEsXIs1IYv6JVYsgT kvFeDsYOC1FuA8EPN4f DIzbP7iyEwpzgcknX9o Oyc+B15byG7iGJS9AHU 3kpaeNSYfbgLgRB25YN 94G3EhVqcieEUreEN+P TEplaOesSqoSQ3qPgDq v0vsu1HpOGdtB9OfSJN uHNddIxq8CWIxKWV7nV P7nE0lITCaUEzhm3L9n UU5F6PncqUkje9zg1kt QULwMOexS92xcXPlo5V 0ZWGqhKL4FIVvcWqeWs WldY41Cih+PGNvbGdyb 4NuHmcdl1skn4arsJi4 IjMwJSIgdmFsaWduPSJ 9b0EmUu72U58eKOpmBP RoPSIxNSUiIHZhbGlnb n8xmW4eOm4+PGNvbCB3 iXT4wS7vQBThGqO5WXq qU410UpHiwSIwGukar5 ofd6xqjOv5BrGnNVBez bPwdEknDLM4x9FrXr47 Y45jESffVRNjBRDsYZM bQGJtaTjbgt7vkT3hHh 8+TL0of0dozv82fY21m HI+QVXdDWC3nFknYCpu CFSnmX1aBCcsTvD2KPS bMwZdcZ28sPEaIUcsDd 2swQqzcTqkAG1uYOCim dbsa472HmGtz7unHVZp mBYxJKwnHRF0P26vg5T 1ZJJdAFXzWTX0aDW2hR 1hbGlnbjogbGVmdDsgd xWovEyfWSbgCKnwH828 IHRvcDsnPlBhdGllbnQ wChBhEAt8B3DeJaj1EY HmnAejNG1zoDXdFRtcG q0iqBqdlXvfQG4tIUIc qghca042KeRlo8wrIWY nqNAsLSpgPQB3B01kt3 S0LPYeJGCkDSN0lAG5u V0sfMkmlucbnXHjxBbr xeUdaBtyZGhuHRigM94 6IHRvcDsnPkJpcnRoIE EbmMX2HK59QO82tYJxk 5G1jPS6L7FgVKEezqkk chpjvEW4UUUfUEQlpF2 6Ws6vrJbvHg2hBBPlBW P8VUScxGSqQ9FobR4mP vEhNPLkZGLsJ7KyiVZe XYstX459XVmpUpI2CQQ rkeOrA9DfQHStiQpbHr A9n4C9Rb7GU7Q3QJ33E A78nIZbs3R0uZK9N3Iz ZXGpbezjcxeujJC7NNQ rYMJvgU51Vs8reWzeHw 2tREFpACH9OUCmsFJkH 4KbmK1iAwMgKRCxDMZb D6IdtMWcSWjmF204BLe sWuZ4YWIofhIgY7JdCM FipMftMcA2o3Q5Ny2MJ Wt7DV38XR74vRByp8K8 bXE1Y0HjTRVcmghekqa prUW6HVKcWONviG46Ie 0ogImaBg3fJVPpVTY0J IJdrSAuA1TbgZ4nYvAu RMPdPPUgE7BdsVFvDQt kE936OXfnPxX3TVFvow UnJ7PrSWKdqOifOxH6b 2N7Gw8EGEPhTO95CLA3 gUV1MK20SQ65Q4RzXvy vdGFibGU+PHRhYmxlIH dpZHRoPScxMDAlJyBzd YckGR2gKf8tMXZgZZMb ePnsrNLnPkIgn6vzPBZ uCVspON0drZorK4JqrW Q4OAUzi2e8Qc86N88uE 3JvdXA+MOMqfLN6lRN1 kC4xCiPoMnZ4RVzyV26 1JfTeuVQwNobdr0faz0 ophEz6RjR1NTEvslRsv TzxWQD4w2TyYl57G01w IHdpZHRoPSIxNSUiIHZ trNmuzs3byP2sRv1+PG YhpRZ0bSZ2eA6cMkIzM vQ9WJmsP661QbRlcBLx Fbtch1dij4iryFo8KoC mMFPcxkGxhOrrHXC4u3 IhTo40Y2AjdQgay3SvE mo5de23uUSnh2T4xUH8 B4FpIASledkpyLMroJg hEH6mYIVivueyEBXdtY 0wEMOmC3m2OgJvQfT0A MdrA5DtcrX5QFZyaFRv MIoeZVS2X55il8X6BLK zJVXgSMA6fMS4nS4seB lnbjogbGVmdDsgdmVyd KngHDnsDShcX504HPUi oSgqJNEcuJ7aGLWomMK ssGueKJ4qQHAmxqehVx jTZr2MYsadD1QNB0cMK dKWNO49MY64mRLmc3P2 fUL6R8SiRJFkjhocdvx nwXP8KBJtKRHvsA62wF LwRMniXq5uz3W7v063N GSmDSYfxV70Tr3ulNuu YIVlpAYLrY3yrsbcb9c ebjhiGpNgCBCrVIw4FE m0CPFmoJxgJfNzFOU6F sA7KGW6wPQrxS2bqHjg vqxlcJ1xOsx+MTAvMzE vMTkzOTwvdGQ+PHRkIH X8gXveAHsuEGQxnP0pF HKyI5r1BhBuBzV7UFap E3YeKOMjghdhXj35fP1 tMrHwMxE7QGdcT4Qpzr H0OBPyzLXpNVcpYMW1V 85gh7O3HIZfXOCsIEB0 jYS8wD6uuIellgcxzPH mdDsgdmVydGljYWwtYW jsZ459FUScbKgdGlqnW YfjBKFlYK64NA97cIGp y2H5cJR8W0GfJSVyzac ikfdvnRS2GRJmQFDobH 96nZKlBJwmEt0cm3S6n 661GNQyGJOopS17Lp0b sXwcBNSghAULoD2hdql nc5jdumshLpXuMWHlZG x0YCm9OBDemTobEqJdY IO8HwA9UPK3gGZsmO4e fLtgjzauwA5uVpm+RmV vMLdcAY77QF68kUOwv5 V7wDV8T5YaOGZgorljv iyvkON8IJUnXIJpcS23 dKZtMRkhCn8bu3G5o08 6AJYfMLIoeI51Hh6jcF wmXJTjuUGFaR8agnpif 3bandenUtNtUZKmYHi9 DVh3FYVrjVluFcHoUFX 1YjP8ERL4lXVpsY9lfD wzjpeooG8rJdf+T3V0c QL9qOHlwQhvhUN+PC90 rw01W2EbAxquKup3QMW uXZT0hDO3jA3aNCZlTK chf3R3cLS4M2KlgcVcd o5jt9kpOIIaSJouH23u yIEew7L8ONAdrHT6STN kxJejUwMycT65Iuf+PG UgvZvyq9QsSqftd4mqt 3uigXm1DtGzXIBauwRs lLduSMK7v0WiJa65T73 sIHdpZHRoPSIzMCUiIH QabQkhte3tbH2hZl3+P POmiFW7mOZ5fJ3fEjIb WvU4GNowC380BaBqmUK uHwlor3yyz9lzzQo2Cf TgHKSfqrWwiQakEZQ9v 8MbUs95Y0BnwYbho9Ow Jdi6ga58vSJjw3P8kOT 5J2GnEWXymqmrfFLysT byCQ2yYBXdnzuoXRExb J2bWTYhS3r2KaInCsV6 TMogC9UzsiD6LBGskVP rOMBadKTAtW2kfrbbi6 uyrufeVeZePAQgOXj9S Oa8QEHmrRfdThWzZTE5 JrZ8HVN5oCJefC6vcXh ugndyxV7pUld+UGh5c2 jzpWEnYW2xqPQ9BV50T V43iXWsy6X0xPD7F5Om DFGksxpqxdybyPW4OXA xLQSauG73Ic2ngEawVi 5oOIJuYFJ0TSUonPCgS 0KhfX0cUsKuIPZuWSOh J2FndOSxWEmlO089YDm sBuZ2CKNfewHpQ4IgZB KaeAbfJkE1a3H6Hj6MA O71HW31SI36fERiu5S4 zTX1Z7TkIHEbljnezhj vjQN9GQBeGIKdtX62Bm 6suCbhWp6cXESzZRY7W WFssPLuA9VoqM2kYtEy EKFqPFUvK9SsjPSfFIr tG149DDaoTrA7VFRjph CyE2QiQGNsaQvkYbI6p 3M4Dv3YXp39ZU00CX35 nUVtr2C3lRD4W0TcJTK asswesjuxyQY2JRZeUG XxjW80Im5plQysLe7vM WAwYKW6WYSocISuN9Lc wF6rQcQbZGGaGQXvR9Y smZGxPOopM443HXrcJa L4ZLXlxsSzS9HcRRTfm BnxUpY0v7B7Tl5PZIqs ajs6U4EgInsvlVC+PC9 7KQIgLP24xOMzqIWrg0 dguUm3EhSfGIZjTQM7j XxnJDebp4FpOFOyS03f bGFw (more content not included)... Normal [facility] Consent for Treatmenton 04-23 Consent for Treatment [id number] 76#1.00CD:127 Normal [facility] Heart and Vascular Office/Cl inic Noteon 05-11-2021 Heart and Vascular Office/Clinic Note History of Present Illness Lola Andino is an 80 year old female without significant cardiac history. She presented to [facility] 04/19/21 with complaints of chest pain. [...] She is going to go to a fire sprinkler service technician in the next week or so to [...] SINHA, Tristan Ashley 04/30/2021 16:28 EDT Normal [facility] Comment on above: Result Comment: Elec tronically Signed By: Sawyer SINHA, Nico [email or web address]\Date and Time Signed: 05/11/21 11:15 EDT Stress EKG Tracingson 2020 Stress EKG Tracings [id number] [email or web address]:127 Normal [facility] NM Myocardial Spect Rest/Str ess 1 [...] Stress Dose (mCi Tc99M Cardiolite): 29.9 Normal [facility] Coding Summary.on 04-23-2021 Coding Summary. CD:[id number] ZXd8dJq+PGhlYWQ+PE1 FAUKzY05xjUTqhN8CC0 yADA1SQMFFZZFCPW6SN N0kmCF1NCroT3FofvFr LxfflAXwJM87ZKt9HHM 6pZplXHrqrD0ewKDoY1 i7WxRfGS26kJ78UMcfQ LJaQeB3OlFrxfwpoLOs K7mnEsCwrPSpPdc+PHR hYmxlIHdpZHRoPScxMD UoXxEezDhwWO7fYm5sR GVyLWNvbGxhcHNlOiBj d4wuEPPsZNikFK5kqCd cT9YdpJI1PZQod9p2Sy 48dHI+IOBjVBO6bMjyG Pegj836ShZjo8owUSO2 aENePSooKLX5U58qx9U 3JQNkSPPuZEH9iRD3xD 7cgKawpduwH5AmgOUpK sM8RMT1gBGlrG0olHig scuqvK8oKdb+E36CIM6 GGIDXVS2AJvp3R5CrLn wvdHI+UO61YVBdGG90w HSkwYJjh2gdmTg2AxNr ELPlNOP2fFofCZrny7F jDSWaB99lmPZnh3O9EE RphAumnGTdInNdvPW7v I0pQAaxamypv9wwzzcu Kpscy1xpvk64tG75F41 kNOldPPDqWHB9PXFxQR FhdIwknd2irW9sWp0+I Uwkn5wgr6ffnSd5XvUn WJBktnQroSvvXBK3f3N iXw67F4YavYaha9IyFy y4rd55yCJex8G0gJE6F LosQOZhdL1eOKrcSeD9 MODmHaLklO97hLDnCHw iSl3qaFfpeSzlQN6dHL RnqjkvCZXftB8rONSbn WBpyLeyIJ8nOYYohuxc z923RrJoUZB2TEBstGH lO4IywY7bIkCkUOTsMN CvF9CksJVkHNipL394R VbgBoQ0IKXdarEvR1Bg IMMgmHiyWbN1k6U8Ro3 Ff3SldebnRVX7SBycIV B8SxQoKeCgKkD7L6TgF sw6RLLuoUrbIL6oP6Ky KRXvutdzxhbphRH4CBR bZYRazX28dSHnLTbvCz 2zk4S2b632SBVbUCUrz X95Xy1vuJynUYEusIDX xE2btxfzf6rfzcrkXiK kJCBiNOh5FSh1TIQwdI vpBkJwDLD4IfE9IFR2s OGrnQ5rvOzyqoqyiD7d Oyc+V97oeA4bMTP6SRA 2pefdNYYkioRwGD45QX 12H6TjWuiwbIJabNL+P YMejaSztVvtXR3jCoPx a3qir8AuQRreM3AmHHK mEPtgBds9CYTmJHR8rX C0tV3yISQoZPazt5C1z RX4Y9LaioEdby0cy4my AGLeQLtwK67ifGDrv4U 1QJWwlVU4NAYmfGviXr TohT36Imu+PGNvbGdyb 7PbRtlyt3rrb7pplKj4 IjMwJSIgdmFsaWduPSJ 2k2PpNr85I37yNTbwHP RoPSIxNSUiIHZhbGlnb g7olD0oBa1+PGNvbCB3 jWB5wB1pLCEbOpI0QBa yZ100PhUuxJWsBfxxy8 jgr7mraRt0QdZyDHHcp nHvnTfhFVP6y4JoXs54 Y66nNCxdKKDaGQVsOKF nJCJspBonzz9qkH1jJp 8+RU3id6lfyq63zD49m HI+VZQsBGK1tPklSKuj XMDwiR6yLOtyVuE4CXB eWoQweX81qUGrXSocNs 8seIorqRwfOZ3uPODkh yvkl287YoGbj1xiUJDx eOLdLSjkVOM8X23nk7D 9SREdILTlYTZ4wTR7sS 1hbGlnbjogbGVmdDsgd hMixZwwJGjbHVeiN441 IHRvcDsnPlBhdGllbnQ rBxEaKQx3S6CtVfj3II ZeiWahAM1bdMGfKAkeN q7cpHaarIuiYY3uOVJp sgkjz751ByTaj2vwKIS yoMXpVYmrWGS2K52ee5 B7WCCiZYMqVYT6eDO7i A8ypAvdavaosFBfpPkk tbOiuGxnSDavGNbnL85 6IHRvcDsnPkJpcnRoIE XarWY8BV33BU02gLTkm 1X4wPF7Q3QkOQYpsswv jrgzsZL0LDFzHOGlnF4 1Ac9bbGdgCq9uDYPvJU H7GMGejATpV9WbmP6eU aBwTPFfSXRgP2LbdCOv YIydM028ZSryFsX1XTH fkiHdF5MaUEAujSdmIu T3e1N8Pm0NV7A3IT65J H45rSXyv7O5bEL9T9Yc KRZbugxqhgqgbUC7FXH pAFOmzU71Zl3ifWvcPp 3yTRDsWYK7PWHnhUJxB 8PbuD6wQjSfYROfHPKv F1StcXBpDHyaK679BBu yXqB8AJWibpDyP3GgPR DcdMtlEiW3x3A4Nl3SO Ed5NC57NJ39oLAbp0I9 ePZ1L8FsANWoojalgrm spJI4YVAxTJBblT36Bi 9tfDboUi3uOZLyZKK4X UCmhQFtA0DovC2uMsKm NPQoFXIfS2NmdKPpRSy rG316RLyaKsT3SWKloj TlZ1QoBSGfhTmeBqO5w 4Y4Tr0KLUObKY23RCM3 pRS6GC56QW31R7EqWws vdGFibGU+PHRhYmxlIH dpZHRoPScxMDAlJyBzd QbeCQ8aCh8fGSFsZOMl oKkhjKQvEyEec0lhVAE qPAioCA4alDlaA8ZpnO M2LHJoy8y6Qh31G36kB 3JvdXA+KRMsnES2qUI0 qH5tDeEdNvY6USjiB26 1YiGfvDIbDsncu3lyc2 nxjFt4JjQ7IZJsrjCna UdaRNJ7r7SjQh71W74z IHdpZHRoPSIxNSUiIHZ odRlghc7oxK8iQq0+PG PagRA9pAJ3lF9xUsOlT yW3ROiyS546IeQxzQTe Agnhw7raa3qzxQa2FaP mARWwdiUzbPcbJVS8f9 HeOf04C7QmqAtcw8LlG vj4re84rPHxq6T7bYM5 W0GeLKNqmlrmaGMvtKt gEV8bCLUpvmutJBVsaP 3wQFOzP7l1MhUpEaX0L OgcM9KhuvW8ZRJsjNDd BBmtPLC0G03vi8R2MDU wSWCzIUQ5kKY4gN9nbE lnbjogbGVmdDsgdmVyd VejDJudHKalV674RSGc fGqlWPHmlO3pVFXdsWN ixQrlBH6bGWOqexipIg pDBf4VEjihX4IDX2eDS aFLAO73ZM27iCMbr4Z2 iYI8Q7AdCTPhpxoibpo myNT5FMHwDQHenC78tX XsIEccHk7ng9L8p640Y WYgXHJraG08Yn0esQty PYStgAOVhW4wxxief4s wgefrZhCrAHYiENh0KG f8FVWrcLijAqOiACK8I rU4BMF9bENmhV6biIys ahfniA7xXjs+MTAvMzE vMTkzOTwvdGQ+PHRkIH X4xWvsXJodJXHgkG2iP XVkU9v1BcLmKnM7YOik Y7LlONGjfvtqRq07eO2 cFwQkMtW6FVhzA4Psti T8WAPxcZRzEDmqFRZ3H 48ff7V3VBPkCJTmKQI8 zXB6eL4ayNkcfeqauPG mdDsgdmVydGljYWwtYW zyH133CWZhfGrzWxkfV SpfBGViEU26LS10tOSt n7N0pLP2D6YySDOkgfm yavvqvJO5IGVqTWYsaS 69mNFfRHaiBe9ug7L2a 018WIBfBCSzuF39On0p xWqbXTCapPXXsZ4gkmg ka7kzuogpXhYfKSCqFW x8VUu3TDSuyJubLjMpN HG4JqJ6YDK3wAYlpQ8e mQcoyevcaM3tRqk+RmV vJIyyEL33TJ08lLGga5 U5hLM2X1NeQQEtwxkdj jckeER4FSLsMDYafM74 zGJaFZkhMg1lq1W5f88 1DPNjWZNnpP59Vf7njG qpOOXtoPWKsG0beyfcb 3dhqmuyTaHoMEUdMUp4 PYs0IMNndVfpJhPfAOS 5UmX0MXI7tIAdvG6vdA zmfadbxC0aMgx+T2JzZ KL1WEQlf211Z4RbKeyg dHI+QS82XMFsTP66eXW noGHdg5fwcGv8WwPgZV PfNOT1cKtrWZxbd7BpV MJnN04xoGIlc5R7MXQi rLpnmELgRvFmmIW6gX6 fXKqtehmby8uzbvqcAv zdt7jdgo14tN89V65hX HdpZHRoPSIzMCUiIHZh dXcekp1etG6fIc4+PGN rwCR3hPS6iK2yHhPwPx V6JDldB177PrYjxHWnJ scvi3jxr7kwvSy0QeWm MARgraFzxXxlLGM3t9V uHr27L25eNDutSHBtUZ KlNZJqMWUsgUhhcy9ku G9wIi8+ZT2ib0oukq08 xW13iPM+BPOmNBL2cZe aHWgeLOAkxM0oOApbEn Z2IMRxXmNqkN24oLMsC YldPt4lyEjglVgrAU2n QSLiejvsl768WjVyt4g gOAJvzEDxQMkaSTJ4G7 1fk7S9NGDaKBGkIPS9r PT5nE7tyQtsdpybgIPt dDsgdmVydGljYWwtYWx nA926WULxfAcoPtAauD WvP8qlbqGPWX1wEtfur GQ+TANuKUK4mFaoJBsf AVBazA0eCQCcA6n4RiE wBsG3FXjuS2FpunE3KQ YfbWJgMWOfjLEDhM7pj wmqu6wfoosgOwQfTFKz TGq1PHm9KEGebAlyBfU zRUV8LoD8RPO4oRAtuR 9ejBacxhislX8lBeo+R klOOjwvdGQ+PHRkIHN0 eYxsNCfyVRVdnQ8bIEW tH3u6RrQzJyF9TOrgG6 CmreU2AXAdmORcHHInh WDEuM4zjdncs0dkgzqe FhCpZKCaMCa3TMl1OTW zaZiuReJbFQJ4GvZ4WX R1rLPyyU2qkKaoohyjf G9wOyc+TVJOOjwvdGQ+ BRWwEMG0fOtePFnfXRJ lqY7uVQEeY0m3BvOfUc B8CNdgS3YodkI9XPUkg DHhUWDggMYMvJ8tshts e5fqmndiOhPwQGMrPZg 4VHk7CBNorVjbHbIoTX V5VsS6BRU2cABlgA2sx JbgazrzkQ0fWdf+UGF5 NCF6WX87ON56G1MmMrs vdGFibGU+PHRhYmxlIH dpZHRoPScxMDAlJyBzd FsaPH5bXl4bJLFdJJHi bGxh (more content not included)... Normal [facility] Interdisciplinary Note - Eric e Manageron 04-23-2021 Interdisciplinary Note - Stoker Erector ED: Dangelo H/P: Susanne Profit: partial PIS [...] Readmit: no MM: done OBS: done Normal [facility] Comment on above: Result Comment: Elec tronically Signed By: Scott LEZAMA, Avani Ventura\.adwoa\Date and Time Signed: 04/23/21 15:59 EDT BMPon 04-20-2021 Anion gap [Moles/Vol] 15 mmol/L Normal 6-16 [facility] Comment on above: Performed By: #### 2 526581, [id number] #### [facility] [address] [place] [address] Calcium [Mass/Vol] 9.2 mg/dL Normal 8.9-11.1 [facility] Comment on above: Performed By: #### 2 625681, [id number] #### [facility] [address] [place] [address] Chloride [Moles/Vol] 106 mmol/L Normal 101-111 [facility] Comment on above: Performed By: #### 2 037985, [id number] #### [facility] [address] [place] [address] CO2 [Moles/Vol] 25 mmol/L Normal 21-31 [facility] Comment on above: Performed By: #### 2 323646, [id number] #### [facility] [address] [place] [address] Creatinine [Mass/Vol] 0.6 mg/dL Normal 0.5-1.3 [facility] Comment on above: Performed By: #### 2 364458, [id number] #### [facility] [address] [place] [address] Glucose [Mass/Vol] 124 mg/dL Normal 55-199 [facility] Comment on above: Result Comment: If t his glucose result represents a fasting glucose, interpretation should refer to the following reference range: 55-99 mg/dL Performed By: #### 2 964054, [id number] #### [facility] [address] [place] [address] Potassium [Moles/Vol] 3.7 mmol/L Normal 3.5-5.3 [facility] Comment on above: Performed By: #### 2 157434, [id number] #### [facility] [address] [place] [address] Sodium [Moles/Vol] 142 mmol/L Normal 135-145 [facility] Comment on above: Performed By: #### 2 270417, 95693896 #### [facility] [address] [place] [address] Urea nitrogen [Mass/Vol] 15 mg/dL Normal 5-21 [facility] Comment on above: Performed By: #### 2 920888, 20724447 #### [facility] [address] [place] [address] Urea nitrogen/Creatinine [Mass ratio] 25 No Units High 10-20 [facility] Comment on above: Performed By: #### 2 696873, [id number] #### [facility] [address] [place] [address] Cardiology Progress Noteon 0 04-20-2021 Cardiology Progress Note Cardiology Consult Received- full note to follow Reason for consult- Chest Pain Lola Andino is an 80 year old female without significant cardiac history. She presented to [facility] 04/19/21 with complaints of chest pain. [...] seen and examined with Dr. Shin. Normal [facility] Comment on above: Result Comment: Elec [...] History Heart failure: Father and Brother. Normal [facility] Comment on above: Result Comment: Elec tronically Signed By: Kip SINHA, Tristan Ashley\.br\Date and Time Signed: 04/20/21 16:31 EDT Discharge Instructionson Discharge Instructions [id number]#[id number]:127 Normal [facility] Inpatient Clinical Summaryon 04-20-2021 Inpatient Clinical Summary [place] [address] Clinical Summary Person Information: Name: LOLA ANDINO Age: 80 Years : 1940 Sex: Female PCP: LG OVIEDO DO Marital Status: Unknown Race: White Ethnicity: Non- or Language: Niuean Visit Id: Visit Reason: Shortness of breath; Chest pain; SOB, CHEST PAIN Speciality: Acuity: Enc Type: Observation Med Service: Medical Arrival: 04/19/2021 14:36:15 Discharge: 04/20/2021 12:33:00 Dispo Type: Home (Routine DC) Address: [address] [place] [phone] Provider Notes: Diagnosis: 1:Chest pain; 2:Hypertension; 3:DVT [...] Physician: Follow up: With: Address: When: Franklin Landry[address] [phone] [facility] (1) Within 1 to 2 weeks Comments: follow up for pulmonary nodule With: Address: When: Tristan Shin [address] [place] [phone] Business (1) Within 1 week Comments: Call for followup appointment With: Address: When: LG OVIEDO [address] [place] [phone] Business (1) 04/24/2021 3:00 PM Patient Education Information: Hypertension, Adult lisinopril Normal [facility] Inpatient Patient Summaryon 04-20-2021 Inpatient Patient Summary [address] [address] Patient Discharge Instructions PERSON INFORMATION Name: LOLA [...] None Follow up: With: Address: When: Franklin Landry[address] [phone] [facility] (1) Within 1 to 2 weeks Comments: follow up for pulmonary nodule With: Address: When: Tristan Escudero[address] [address] Business (1) Within 1 week Comments: Call for followup appointment With: Address: When: LG OVIEDO [facility] [place] [address] Business (1) 04/24/2021 3:00 PM In the [...] of breath. (more content not included)... Normal [facility] Interdisciplinary Note - Eric e Manageron 04-20-2021 Interdisciplinary Note - Stoker Erector Pt is awake and alert in bed, [...] per nursing. Anticipate DC home today 04/20[facility] Comment on above: Result Comment: Elec tronically Signed By: Miguel LEZAMA, Yuli\.adwoa\Date and Time Signed: 04/20/21 10:09 EDT Interdisciplinary Note - Soc ial Workeron 04-20-2021 Interdisciplinary Note - Respiratory Medicine Physician Computer generated consult for advanced directives received. This SW spoke with the patient who states that she already has HCPOA and LW completed. This SW requested a copy when she or family is able to bring in so that it can be scanned into her EMR. Patient is very appreciative for checking with her. SW will remain available. Normal [facility] Message from Medicareon 03-24 Message from Medicare [id number]#1.00CD:127 Normal [facility] Monitor Recordon 04-20-2021 Monitor Record [id number]#1.00CD:127 Normal [facility] Monitor Record [id number]#1.00CD:127 Normal [facility] Pre-Certification Formon Pre-Certification Form [id number]#1.00CD:127 Normal [facility] Troponin 9 Hr.on 04-20-2021 Troponin I.cardiac [Mass/Vol] 17.60 pg/mL Normal 10.10-27.10 [facility] Comment on above: Result Comment: The 95% CI (Confidence Interval) PPV (Positive Predictive Value) for myocardial infarction in females is 38 pg/mL, in males 51 pg/mL. The results should be used in conjunction with clinical conditions of myocardial infarction. (Access High Sensitivity Troponin I Instructions For Use, Vira Howard, March 2018) Performed By: #### 2 766476, [id number] #### [facility] [address] [place] [address] UA With Cult Reflexon 2020 Bacteria LM Ql (Urine sed) TRACE Normal Trace [facility] Comment on above: Performed By: #### 2 473792, [id number] #### [facility] [address] [place] [address] Bilirubin Ql (U) Negative Normal Negative [facility] Comment on above: Performed By: #### 2 701322, [id number] #### [facility] [address] [place] [address] Clarity (U) SL CLOUDY Invalid Interpretation Code [facility] Comment on above: Performed By: #### 2 620464, [id number] #### [facility] [address] [place] [address] Color (U) YELLOW Normal Yellow [facility] Comment on above: Performed By: #### 2 631521, [id number] #### [facility] [address] [place] [address] Epithelial cells.squamous LM.HPF (Urine sed) [#/Area] 0-2 Normal 0-2 [facility] Comment on above: Performed By: #### 2 223119, 04657151 #### [facility] [address] [place] [id number] Glucose Test strip (U) [Mass/Vol] Negative Normal Negative [facility] Comment on above: Performed By: #### 2 489487, 45448559 #### [facility] [address] [place] [address] Hemoglobin Ql (U) TRACE Abnormal Negative [facility] Comment on above: Performed By: #### 2 840945, 93885456 #### [facility] [address] [place] [address] Ketones (U) [Mass/Vol] Negative Normal Negative [facility] Comment on above: Performed By: #### 2 902892, 42832165 #### [facility] [address] [place] [address] [place].plasma/Lithiu m.RBC (Bld) [Mass ratio] 0-3 Normal 0-3 [facility] Comment on above: Performed By: #### 2 501221, 99703453 #### [facility] [address] [place] [address] Mucus Ql (Urine sed) 1+ Normal Fish [facility] Comment on above: Performed By: #### 2 916848, 87434693 #### [facility] [address] [place] [address] Nitrite Ql (U) Negative Normal Negative [facility] Comment on above: Performed By: #### 2 978053, 64102951 #### [facility] [address] [place] [address] pH (U) 6.5 [pH] Invalid Interpretation Code 5.0-9.0 [facility] Comment on above: Performed By: #### 2 095105, 22961985 #### [facility] [address] [place] [address] Protein (U) [Mass/Vol] Negative Normal Negative [facility] Comment on above: Performed By: #### 2 178011, 16822070 #### [facility] [address] [place] [address] Specific gravity (U) [Rel density] 1.020 Invalid Interpretation Code 1.005-1.030 [facility] Comment on above: Performed By: #### 2 392776, 72783279 #### [facility] [address] [place], [place] [address] Type of Urine collection method Clean Catch Normal [facility] Comment on above: Performed By: #### 2 833773, 29320718 #### [facility] [address] [place] [address] Urobilinogen Qn (U) 0.2 {Raji'U}/dL Normal 0.0-1.0 [facility] Comment on above: Performed By: #### 2 016494, 15461619 #### [facility] [address] [place] [address] WBC Auto Ql (U) Negative Normal Negative [facility] Comment on above: Performed By: #### 2 948284, 89953323 #### [facility] [address] [place] [address] WBC LM.HPF (Urine sed) [#/Area] 0-5 Normal 0-5 [facility] Comment on above: Performed By: #### 2 069071, 75351404 #### [facility] [address] [place] [address] XR Chest Single Viewon 04-20 XR Chest [...] M.D. Transcribed by: ARBEN Technologist: MAYE, Noemy [facility] eGFRon 04-20-2021 GFR/1.73 sq M.predicted among blacks MDRD (S/P/Bld) [Vol rate/Area] mL/min/{1.73_m2} Normal >=59 [facility] Comment on above: Order Comment: Order added by Discern Expert. Result Comment: eGFR is race adjusted. AA=. Performed By: #### 2 968716, [id number] #### [facility] [address] [place] [address] GFR/1.73 sq M.predicted among non-blacks MDRD (S/P/Bld) [Vol rate/Area] mL/min/{1.73_m2} Normal >=59 [facility] Comment on above: Order Comment: Order added by Discern Expert. Result Comment: Historic Interpreter brady kidney disease could be indicated at eGFR's of less than 60 mL/min/1.73m2. Kidney failure is indicated at less than 15 mL/min/1.73m2. Performed By: #### 2 190160, [id number] #### [facility] [address] [place] [address] Auto Diffon 04-19-2021 Basophils/100 WBC (Bld) 0.8 % Normal 0.0-2.0 [facility] Comment on above: Order Comment: Order Added by Discern Expert. Performed By: #### 2 426846, 2763034, 0479392, 07872789, 37452793, 65507942, 94164830 ####[facility] [address] [place] [address] Basophils/Leukocytes Auto (Bld) [Pure # fraction] 0.0 E9/L Normal 0.0-0.2 [facility] Comment on above: Order Comment: Order Added by Discern Expert. Performed By: #### 2 678530, 6366047, 2197865, 09178541, 57599967, 82394159, 21950869 ####[place] [address] [place] [address] Eosinophils/100 WBC (Bld) 1.2 % Normal 0.0-8.0 [facility] Comment on above: Order Comment: Order Added by Discern Expert. Performed By: #### 2 521054, 9288114, 3056366, 61163247, 56612607, 97031356, 94246607 ####[facility] [address] [place] [address] Eosinophils/Leukocyte s Auto (Bld) [Pure # fraction] 0.1 E9/L Normal 0.0-0.5 [facility] Comment on above: Order Comment: Order Added by Discern Expert. Performed By: #### 2 037865, 4602680, 7954222, 04642749, 48139155, 95427553, 23765225 ####[address] [address] [place] [address] Lymphocytes/100 WBC (Bld) 23.5 % Normal 14.0-50.0 [facility] Comment on above: Order Comment: Order Added by Discern Expert. Performed By: #### 2 928188, 5387235, 1721404, 64272555, 26931909, 94348568, 35650020 ####[place] [address] [place] [address] Lymphocytes/Leukocyte s Auto (Bld) [Pure # fraction] 1.0 E9/L Normal 1.0-4.0 [facility] Comment on above: Order Comment: Order Added by Discern Expert. Performed By: #### 2 409390, 5817676, 4630900, 90146829, 89253027, 06401049, 10780897 ####[address] [address] Monocytes/100 WBC (Bld) 8.8 % Normal 4.0-14.0 [facility] Comment on above: Order Comment: Order Added by Tamy Expert. Performed By: #### 2 064142, 6666989, 5068929, 97570533, 46953801, 70377328, 04621327 ####[address] [address] Monocytes/Leukocytes Auto (Bld) [Pure # fraction] 0.4 E9/L Normal 0.2-1.0 [facility] Comment on above: Order Comment: Order Added by Tamy Expert. Performed By: #### 2 563994, 2993660, 3283381, 12688065, 58685200, 77965420, 76432177 ####[address] [address] [place] [address] Neutrophils/100 WBC (Bld) 65.7 % Normal 36.0-75.0 [facility] Comment on above: Order Comment: Order Added by Discern Expert. Performed By: #### 2 755338, 5805619, 3692027, 58226209, 93322914, 08224375, 09845925 ####[place] [place] [address] Neutrophils/Leukocyte s Auto (Bld) [Pure # fraction] 2.9 E9/L Normal 2.0-7.5 [facility] Comment on above: Order Comment: Order Added by Discern Expert. Performed By: #### 2 927670, 4976633, 6686072, 98200996, 71311090, 11564371, 35376266 ####[facility] [address] [place] [address] BMPon 04-19-2021 Creatinine [Mass/Vol] 0.9 mg/dL Normal 0.5-1.3 [facility] Comment on above: Performed By: #### 2 442868, 6810941, 7041727, 41276920, 70331696, 75057182, 50469858 ####[facility] [address] [place] [address] Urea nitrogen [Mass/Vol] 18 mg/dL Normal 5-21 [facility] Comment on above: Performed By: #### 2 225402, 8137939, 5199743, 05421875, 17441411, 02005874, 72990252 ####[facility] [address] [place] [address] Urea nitrogen/Creatinine [Mass ratio] 20 No Units Normal 10-20 [facility] Comment on above: Performed By: #### 2 478102, 6131049, 9359029, 32124952, 12862276, 87270721, 07997284 ####[facility] [address] [place] [address] Anion gap [Moles/Vol] 12 mmol/L Normal 6-16 [facility] Comment on above: Performed By: #### 2 646495, 5569233, 9018043, 52280638, 88344664, 97346388, 94400348 ####[facility] [address] [place] [address] Calcium [Mass/Vol] 9.2 mg/dL Normal 8.9-11.1 [facility] Comment on above: Performed By: #### 2 738628, 5867923, 8258684, 49139593, 98345124, 63489370, 48785902 ####[facility] [address] [place] [address] Chloride [Moles/Vol] 102 mmol/L Normal 101-111 [facility] Comment on above: Performed By: #### 2 012316, 7410525, 3726020, 77242966, 37069896, 87930359, 86355535 ####[facility] [address] [place] [address] CO2 [Moles/Vol] 27 mmol/L Normal 21-31 [facility] Comment on above: Performed By: #### 2 188095, 0053419, 2917082, 96481298, 54191797, 57616688, 98797257 ####[facility] [address] [place] [address] Glucose [Mass/Vol] 115 mg/dL Normal 55-199 [facility] Comment on above: Result Comment: If t his glucose result represents a fasting glucose, interpretation should refer to the following reference range: 55-99 mg/dL Performed By: #### 2 899520, 3357530, 6467836, 93669520, 52464108, 82965572, 37001911 ####[facility] [address] [place] [address] Potassium [Moles/Vol] 3.4 mmol/L Low 3.5-5.3 [facility] Comment on above: Performed By: #### 2 067430, 8408995, 2741844, 20998492, 65903929, 06211178, 17624178 ####[facility] [address] [place] [address] Sodium [Moles/Vol] 138 mmol/L Normal 135-145 [facility] Comment on above: Performed By: #### 2 275679, 0450367, 3748697, 02939994, 70107402, 48945192, 85217224 ####[facility] [address] [place] [address] BNPon 04-19-2021 Natriuretic peptide B (Bld) [Mass/Vol] 76 pg/mL Normal 5-80 [facility] Comment on above: Performed By: #### 2 312074, 0391173, 1456940, 21823704, 50941585, 72096549, 72614353 ####[facility] [address] [place] [address] CBC w/ Auto Diffon Erythrocyte distribution width (RBC) [Ratio] 13.1 % Normal 10.9-14.2 [facility] Comment on above: Performed By: #### 2 317360, 5228477, 7238984, 57351294, 93970798, 97323336, 87751578 ####[address] [place] [address] Hematocrit (Bld) [Volume fraction] 36.6 % Normal 34.0-46.0 [facility] Comment on above: Performed By: #### 2 013748, 9051693, 5620047, 79828150, 92428378, 13009758, 98712080 ####[facility] [address] [place] [address] Hemoglobin (Bld) [Mass/Vol] 12.5 g/dL Normal 12.0-16.0 [facility] Comment on above: Performed By: #### 2 640661, 8730084, 6531994, 92240488, 62892638, 54236801, 56490219 ####[facility] [address] [place] [address] MCH (RBC) [Entitic mass] 33.0 pg Normal 27.0-34.0 [facility] Comment on above: Performed By: #### 2 435186, 2835169, 9501320, 24969751, 87788087, 52196586, 50005908 ####[address] [place] [address] MCHC (RBC) [Mass/Vol] 34.0 g/dL Normal 31.4-36.0 [facility] Comment on above: Performed By: #### 2 086503, 0460469, 0518834, 73295644, 49859007, 34612106, 80280340 ####[place] [address] [place] [address] MCV (RBC) [Entitic vol] 97.2 fL Normal 80.0-100.0 [facility] Comment on above: Performed By: #### 2 607292, 4723496, 6835972, 31156140, 37091826, 48283390, 04026454 ####[address] [address] Platelet mean volume (Bld) [Entitic vol] 9.5 fL Normal 6.4-10.8 [facility] Comment on above: Performed By: #### 2 386794, 8637705, 9563263, 26336718, 86546453, 08533327, 92655229 ####[address] [address] Platelets (Bld) [#/Vol] 277.0 E9/L Normal 150.0-500.0 [facility] Comment on above: Performed By: #### 2 251823, 1157336, 5354378, 77086619, 52762485, 46560941, 38364280 ####[address] [address] RBC (Bld) [#/Vol] 3.8 E12/L Low 4.3-5.9 [facility] Comment on above: Performed By: #### 2 465630, 5830651, 6128776, 17389401, 47190493, 25443859, 08223031 ####[address] [address] WBC corrected for nucl RBC Auto (Bld) [#/Vol] 4.4 E9/L Normal 4.0-11.0 [facility] Comment on above: Performed By: #### 2 673623, 8129521, 1586316, 66697845, 61663923, 86370808, 73876297 ####[facility] [address] [place] [address] Consent for Treatmenton 03-23 Consent for Treatment [id number]#[id number]:127 Normal [facility] ED Clinical Summaryon 2020 ED Clinical Summary [address] [address] ED Clinical Summary Person Information Name: LOLA ANDINO [place] Age: 80 Years : 1940 Sex: Female Language: Niuean PCP: LG OVIEDO DO Marital Status: Unknown Visit Id: Visit Reason: Shortness of breath; Chest pain; CHEST PAIN Speciality: Acuity: 2 Enc Type: Emergency Med Service: Emergency Arrival: 04/19/2021 14:36:15 Discharge: LOS: 000 04:12 Checkin: 04/19/2021 14:36:15 Checkout: 04/19/2021 18:48:10 Dispo Type: Admitted as IP to this [facility] EVENTS: Event Name Event Status Request [...] 04/19/2021 18:48:10 04/19/2021 18:48:10 04/19/2021 18:48:10 ADDRESS: [facility] [address] [facility] [id number] PHYS DOC NOTES: MEDICAL INFORMATION: Prescriptions Given: PATIENT EDUCATION INFORMATION: Instructions: Follow up: DIAGNOSIS: 1:Chest pain; 2:Hypertension Normal [facility] ED Note-Physicianon 04-19-20 ED Note-Physician Basic Information [...] was treated and evaluated by the Physician Terra Cotta Roofer Helper. The attending physician was in the Emergency [...] 14:59:00) Lymph Auto: 23.5 % (04/19/21 14:59:00) Dare Auto: 8.8 % (04/19/21 14:59:00) Eos Auto: 1.2 % (04/19/21 14:59:00) Basophil Auto: 0.8 % (04/19/21 14:59:00) Neutro Absolute: 2.9 E9/L (04/19/21 14:59:00) Lymph Absolute: 1 E9/L (04/19/21 14:59:00) Dare Absolute: 0.4 E9/L (04/19/21 14:59:00) Eos Absolute: 0.1 E9/L (04/19/21 14:59:00) Basophil Abs (more content not included)... Normal [facility] Comment on above: Result Comment: Elec tronically Signed By: Bailee Pierson PA-C\.br\Date and Time Signed: 04/19/21 18:49 EDT\.br\Electronically Co-Signed By: Flynn Mittal DO\.br\Date and Time Co-Signed: 04/19/21 20:39 EDT ED Patient Education Noteon 04-19-2021 ED Patient Education Note Normal [facility] ED Patient Summaryon ED Patient Summary [place] [id number] Patient Discharge Instructions Person Information Name: LOLA ANDINO Age: 80 Years Arrival Date: 04/19/2021 14:36:15 Discharge Diagnosis: 1:Chest pain; 2:Hypertension Primary Care Physician: LG OVIEDO DO Provider Information Primary Provider: Flynn Mittal DO [employer] Former:Bailee Pierson PA-C The exam and treatment you received in the Emergency Department were for an urgent problem and are not intended as complete care. It is important that you follow up with a doctor, nurse practitioner, or physician?s habilitation assistant for ongoing care. If your symptoms [...] opioids can be used to help relieve epdslmva-kr-mkkrqk pain and are often prescribed following a [...] be struggling with addiction, tell your health certified social workers in health care and ask for guidance or call SAMHSA?S National Helpline at 2-984-074-AYNQ. v Source: [place] Department of Health and Human Services/Center for Disease Control & Prevention [facility] Medications Given: Medication (more content not included)... Normal [facility] PT & PTTon 04-19-2021 aPTT Coag (PPP) [Time] 34.2 second(s) Normal 25.1-36.5 [facility] Comment on above: Result Comment: Hepa rin therapeutic range (represented by Anti-Factor Xa activity of 0.2 - 0.4 U/mL) corresponds to PTT of 56.6 - 109.0 sec. Performed By: #### 2 [id number] #### [facility] [address] [place] [address] INR Coag (PPP) [Relative time] 1.0 {INR} Invalid Interpretation Code [facility] Comment on above: Result Comment: INR results are specifically intended to assess patients stabilized on long-term Anticoagulation therapy suggested INR?s ?Less Intensive Anticoagulation? 2.0 ? 3.0 Conventional Range 3.0 ? 4.5 Performed By: #### 2 [id number], [id number] #### [facility] [address] [place] [address] PT Coag (PPP) [Time] 11.7 second(s) Normal 10.2-12.9 [facility] Comment on above: Performed By: #### 2 [id number] #### [facility] [address] [place] [address] Troponin 0 Hr.on 04-19-2021 Troponin I.cardiac [Mass/Vol] 4.00 pg/mL Low 10.10-27.10 [facility] Comment on above: Result Comment: The 95% CI (Confidence Interval) PPV (Positive Predictive Value) for myocardial infarction in females is 38 pg/mL, in males 51 pg/mL. The results should be used in conjunction with clinical conditions of myocardial infarction. (Access High Sensitivity Troponin I Instructions For Use, Vira Zina, March 2018) Performed By: #### 2 [id number], [id number] #### [facility] [address] [place] [address] Troponin 3 Hr.on 04-19-2021 Troponin I.cardiac [Mass/Vol] 24.40 pg/mL Normal 10.10-27.10 [facility] Comment on above: Result Comment: The 95% CI (Confidence Interval) PPV (Positive Predictive Value) for myocardial infarction in females is 38 pg/mL, in males 51 pg/mL. The results should be used in conjunction with clinical conditions of myocardial infarction. (Access High Sensitivity Troponin I Instructions For Use, [employer], March 2018) Performed By: #### 2 [id number], [id number] #### [facility] [address] [place] [address] Troponin 6 Hr.on 04-19-2021 Troponin I.cardiac [Mass/Vol] 21.50 pg/mL Normal 10.10-27.10 [facility] Comment on above: Result Comment: The 95% CI (Confidence Interval) PPV (Positive Predictive Value) for myocardial infarction in females is 38 pg/mL, in males 51 pg/mL. The results should be used in conjunction with clinical conditions of myocardial infarction. (Equals6 High Sensitivity Troponin I Instructions For Use, [employer], March 2018) Performed By: #### 2 [id number], [id number] #### [facility] [address] [place] [address] eGFRon 04-19-2021 GFR/1.73 sq M.predicted among blacks MDRD (S/P/Bld) [Vol rate/Area] mL/min/{1.73_m2} Normal >=59 [facility] Comment on above: Order Comment: Order added by Discern Expert. Result Comment: eGFR is race adjusted. AA=. Performed By: #### 2 [id number] ####[facility] [address] [place] [address] GFR/1.73 sq M.predicted among non-blacks MDRD (S/P/Bld) [Vol rate/Area] 60 mL/min/1.73 m2 Normal >=59 [facility] Comment on above: Order Comment: Order added by Discern Expert. Result Comment: Historic Interpreter brady kidney disease could be indicated at eGFR's of less than 60 mL/min/1.73m2. Kidney failure is indicated at less than 15 mL/min/1.73m2. Performed By: #### 2 [id number] ####[place] [address] [place] [id number] Vital Signs Date Time Vital Sign Value Performing Clinician Facility 01-28-2025 08:32-0400 Body height 153.67 cm [facility] 01-28-2025 08:32-0400 Body mass index (BMI) [Ratio] 25.4 kg/m2 [facility] 01-28-2025 08:32-0400 Body weight 60.04 kg [facility] 01-28-2025 08:32-0400 Diastolic blood pressure 72 mm[Hg] [facility] 01-28-2025 08:32-0400 Heart rate 71 /min [facility] 01-28-2025 08:32-0400 Respiratory rate 12 /min [facility] 01-28-2025 08:32-0400 Systolic blood pressure 165 mm[Hg] [facility] 12-06-2024 10:39-0400 Body height 153.67 cm [facility] 12-06-2024 10:39-0400 Body mass index (BMI) [Ratio] 25.5 kg/m2 [facility] 12-06-2024 10:39-0400 Body weight 60.32 kg [facility] 12-06-2024 10:39-0400 Diastolic blood pressure 94 mm[Hg] [facility] 12-06-2024 10:39-0400 Heart rate 87 /min [facility] 12-06-2024 10:39-0400 Respiratory rate 12 /min [facility] 12-06-2024 10:39-0400 Systolic blood pressure 169 mm[Hg] [facility] 10-30-2024 08:28-0400 Body height 153.67 cm [facility] 10-30-2024 08:28-0400 Body mass index (BMI) [Ratio] 26.2 kg/m2 [facility] 10-30-2024 08:28-0400 Body weight 61.91 kg [facility] 10-30-2024 08:28-0400 Diastolic blood pressure 65 mm[Hg] [facility] 10-30-2024 08:28-0400 Heart rate 55 /min [facility] 10-30-2024 08:28-0400 Respiratory rate 12 /min [facility] 10-30-2024 08:28-0400 SaO2% (BldA) [Mass fraction] 98 % [facility] 10-30-2024 08:28-0400 Systolic blood pressure 130 mm[Hg] [facility] 05-02-2024 09:36-0400 Body height 153.67 cm [facility] 05-02-2024 09:36-0400 Body mass index (BMI) [Ratio] 27.8 kg/m2 [facility] 05-02-2024 09:36-0400 Body weight 65.77 kg [facility] 05-02-2024 09:36-0400 Diastolic blood pressure 73 mm[Hg] [facility] 05-02-2024 09:36-0400 Heart rate 65 /min [facility] 05-02-2024 09:36-0400 Respiratory rate 12 /min [facility] 05-02-2024 09:36-0400 Systolic blood pressure 130 mm[Hg] [facility] 03-22-2024 10:54-0400 Body height 153.67 cm [facility] 03-22-2024 10:54-0400 Body mass index (BMI) [Ratio] 27.6 kg/m2 [facility] 03-22-2024 10:54-0400 Body weight 65.37 kg [facility] 03-22-2024 10:54-0400 Diastolic blood pressure 89 mm[Hg] [facility] 03-22-2024 10:54-0400 Heart rate 71 /min [facility] 03-22-2024 10:54-0400 Respiratory rate 12 /min [facility] 03-22-2024 10:54-0400 Systolic blood pressure 139 mm[Hg] [facility] 02-28-2024 10:32-0400 Body height 153.67 cm [facility] 02-28-2024 10:32-0400 Body mass index (BMI) [Ratio] 27.7 kg/m2 [facility] 02-28-2024 10:32-0400 Body weight 65.48 kg [facility] 02-28-2024 10:32-0400 Diastolic blood pressure 71 mm[Hg] [facility] 02-28-2024 10:32-0400 Heart rate 82 /min [facility] 02-28-2024 10:32-0400 Respiratory rate 12 /min [facility] 02-28-2024 10:32-0400 Systolic blood pressure 180 mm[Hg] [facility] 12-22-2023 11:18-0400 Body height 153.67 cm [facility] 12-22-2023 11:18-0400 Body mass index (BMI) [Ratio] 28.6 kg/m2 [facility] 12-22-2023 11:18-0400 Body temperature 98.4 [degF] [facility] 12-22-2023 11:18-0400 Body weight 67.58 kg [facility] 12-22-2023 11:18-0400 Diastolic blood pressure 82 mm[Hg] [facility] 12-22-2023 11:18-0400 Heart rate 95 /min [facility] 12-22-2023 11:18-0400 SaO2% (BldA) [Mass fraction] 97 % [facility] 12-22-2023 11:18-0400 Systolic blood pressure 156 mm[Hg] [facility] 11-09-2023 14:06-0400 Body height 153.67 cm [facility] 11-09-2023 14:06-0400 Body mass index (BMI) [Ratio] 29.6 kg/m2 [facility] 11-09-2023 14:06-0400 Body weight 69.9 kg [facility] 11-09-2023 14:06-0400 Diastolic blood pressure 94 mm[Hg] [facility] 11-09-2023 14:06-0400 Heart rate 90 /min [facility] 11-09-2023 14:06-0400 Respiratory rate 12 /min [facility] 11-09-2023 14:06-0400 Systolic blood pressure 168 mm[Hg] [facility] 05-10-2023 09:00-0400 Body height 160.02 cm [facility] Other [employer] Other 05-10-2023 09:00-0400 Body mass index (BMI) [Ratio] 26.6 kg/m2 [facility] Other [employer] Other 05-10-2023 09:00-0400 Body weight 68.13 kg [facility] Other [employer] Other 05-10-2023 09:00-0400 Diastolic blood pressure 78 mm[Hg] [facility] Other [employer] Other 05-10-2023 09:00-0400 Respiratory rate 12 /min [facility] Other [employer] Other 05-10-2023 09:00-0400 Systolic blood pressure 185 mm[Hg] [facility] Other [employer] Other 03-25-2023 13:30-0400 Body height 160.02 cm [facility] Other [employer] Other 03-25-2023 13:30-0400 Body mass index (BMI) [Ratio] 25.58 kg/m2 [facility] Other [employer] Other 03-25-2023 13:30-0400 Body weight 65.5 kg [facility] Other [employer] Other 03-25-2023 13:30-0400 Diastolic blood pressure 78 mm[Hg] [facility] Other [employer] Other 03-25-2023 13:30-0400 Respiratory rate 12 /min L[facility] Other [employer] Other 03-25-2023 13:30-0400 Systolic blood pressure 187 mm[Hg] [facility] Other [employer] Other Encounters Encounter Date Encounter Type Care Provider Facility Start: 01-28-2025 End: 01-28-2025 ambulatory [facility] Work Phone: Start: 01-28-2025 End: 01-28-2025 Patient encounter procedure [facility] Physician [facility] Work Phone: Start: 12-06-2024 End: 12-06-2024 Patient encounter procedure [facility] Physician [facility] Work Phone: Start: 10-31-2024 Non-patient / Non-visit [facility] Start: 10-30-2024 End: 10-30-2024 ambulatory [facility] Work Phone: Start: 10-30-2024 End: 10-30-2024 Patient encounter procedure [facility] Physician [facility] Work Phone: Start: 05-02-2024 End: 05-02-2024 ambulatory [facility] Work Phone: Start: 05-02-2024 End: 05-02-2024 Patient encounter procedure [facility] Physician [facility] Work Phone: Start: 04-27-2024 Non-patient / Non-visit [facility] Physician [facility] [employer] Work Phone: Start: 03-22-2024 End: 03-22-2024 ambulatory [facility] Work Phone: Start: 03-22-2024 End: 03-22-2024 Patient encounter procedure [facility] Physician [facility] Work Phone: Start: 02-29-2024 Non-patient / Non-visit [facility] Physician [facility] Work Phone: Start: 02-28-2024 End: 02-28-2024 ambulatory [facility] Work Phone: Start: 02-28-2024 End: 02-28-2024 Patient encounter procedure [facility] Physician [facility] Work Phone: Start: 12-28-2023 End: 12-28-2023 ambulatory [facility] Work Phone: Start: 12-28-2023 End: 12-28-2023 Patient encounter procedure [facility] Physician [facility] Work Phone: Start: 12-22-2023 End: 12-22-2023 Patient encounter procedure [facility] Physician [facility] Work Phone: Start: 11-09-2023 End: 11-09-2023 ambulatory [facility] Work Phone: Start: 11-09-2023 End: 11-09-2023 Patient encounter procedure [facility] Physician [facility] Work Phone: Start: 10-24-2023 Non-patient / Non-visit [facility] Work Phone: Start: 10-14-2023 End: 10-14-2023 ambulatory [facility] Work Phone: Start: 10-14-2023 End: 10-14-2023 Patient encounter procedure [facility] Physician [facility] Work Phone: Start: 08-23-2023 End: 08-23-2023 ambulatory LORI H TIMMIS Not Available Start: 07-20-2023 End: 07-20-2023 ambulatory LORI H TIMMIS Not Available Start: 06-17-2023 End: 06-17-2023 ambulatory Lg [facility]o Other [facility] [employer] Other Start: 06-17-2023 Nursing evaluation o f patient and report [facility] Start: 05-19-2023 End: 05-19-2023 ambulatory Lg Ov[facility]o Other [employer] Other Start: 05-19-2023 Telephone encounter [facility] Start: 05-17-2023 End: 05-17-2023 ambulatory Lg O[facility]o Other [employer] Other Start: 05-17-2023 Telephone encounter [facility] Start: 05-12-2023 End: 05-12-2023 ambulatory Lg [facility] Other [employer] Other Start: 05-12-2023 Telephone encounter [facility] Start: 05-10-2023 End: 05-10-2023 ambulatory Lg [facility]o Other [employer] Other Start: 05-10-2023 Patient encounter procedure Lg [facility] Start: 04-18-2023 End: 04-18-2023 ambulatory Lg Ov[place]o Other [employer] Other Start: 04-18-2023 Telephone encounter [facility]g [facility] Start: 04-07-2023 End: 04-07-2023 ambulatory Lg Oviedo Other [employer] Other Start: 04-07-2023 Telephone encounter [facility] Start: 04-05-2023 End: 04-05-2023 ambulatory Lg Ov[place]o Other [employer] Other Start: 04-05-2023 Telephone encounter [facility] Start: 04-01-2023 End: 04-01-2023 ambulatory Lg Ball Other [employer] Other Start: 04-01-2023 Telephone encounter [facility] Start: 03-25-2023 End: 03-25-2023 ambulatory Lg Oviedo Other [employer] Other Start: 03-25-2023 Office outpatient vi sit [...] lic 2000 panel - Serum or Plasma [facility] enter US scan of abdominal aorta [facility] XR Chest 2 Views [facility] XR Knee - left 4 Views [facility] Immunizations Immunization Date Immunization Notes Care Provider Fa cility 04-17-2020 pneumococcal polysaccharide vaccine, 23 valent Lg Oviedo Other [facility] 11-28-2017 diphtheria, tetanus toxoids and acellular pertussis vaccine, unspecified formulation Lg Oviedo Other [facility] 10-25-2016 tetanus and diphther ia toxoids, adsorbed, preservative free, for adult use (5 Lf of tetanus toxoid and 2 Lf of diphtheria toxoid) [facility] 10-25-2016 tetanus toxoid, redu tammy diphtheria toxoid, and acellular pertussis vaccine, adsorbed Lg Oviedo Other [facility] [employer] Other Payers Date Payer Category Payer Medicare [id number] 1960 Medicare [id number] 1940 Unknown [id number] 1940 Unknown [id number] [id number] [id number] 1940 Unknown [id number] 2.16.84 [id number] 1940 Unknown [id number] 2.16.84 [id number] 1940 Unknown [id number] 1940 Unknown [id number] Medicare Medicare Outpatient [id number] [id number] Unknown [id number] 2.1 [id number] Unknown [facility] Health Claims [id number] Social History Date Type Detail Facility Sex Assigned At [employer] Other Start: 1940 Sex Assigned At Female [facility] Start: 12-22-2023 Tobacco smoking stat [facility] Never smoked tobacco (finding) [facility] Start: 10-30-2024 End: 01-28-2025 Sex Female (finding) [facility] Clinical Notes 11-28-2017 to 10-30-2024 [...] specified organisms noneactive December 06, 2024 10:06am [facility] Work Phone: [phone]) 417-709710-27-2023 Evaluation note* Encounter Date Diagnosis Assessment Notes Treatment Notes Treatment Clinical Notes May, Dysuria (ICD-10 - R30.0) [employer] Other 09-26-2023 Evaluation note* Encounter Date Diagnosis Assessment Notes Treatment Notes Treatment Clinical Notes Apr, Pulmonary nodule (ICD-10 - R91.1) CXR 6mm - 04/2021, CT small nodules - 04/2022 CT small nodules, stable - 04/2023 [employer] Other 09-19-2023 Evaluation note* Encounter Date Diagnosis [...] medication use (ICD-10 - Z79.899) Check labs [employer] Other 08-15-2023 Evaluation note* Encounter Date Diagnosis Assessment Notes Treatment Notes Treatment Clinical Notes Mar, Dizziness (ICD-10 - R42) [employer] Other 08-11-2023 Evaluation note* Encounter Date Diagnosis Assessment Notes Treatment Notes Treatment Clinical Notes Mar, Claustrophobia (ICD-10 - F40.240) [employer] Other 08-04-2023 Evaluation note* Encounter Date Diagnosis [...] related to other complaints or separate problem [employer] Other 07-22-2022 Note From: Genesis Denny To: HV - Administrative; Sent: 05/20/2021 08:15:18 EDT Show up: 12/18/2021 08:15:00 EDT Subject: 8 month follow up Due Date/Time: 01/17/2022 08:15:00 EDT Reminder/Recall 8 month follow up with Dr. Jacques (December) tried calling twice and patient hung up on my both times after i said hello. [facility]09-29-2021 Note From: Genesis Denny To: HV - Administrative; Sent: 05/20/2021 08:14:37 EDT Show up: 08/19/2021 07:14:00 EST Subject: 4 month follow up Due Date/Time: 09/19/2021 07:14:00 EST Reminder/Recall 4 month follow up with Haley (2021)[facility]08-30-[facility]21 NoteAdmission Information Admitting Physician - MARLEN SINHA, Pola Consulting Physician - Kip SINHA, Tristan Ashley Admitting Diagnoses: 1. Chest pain, unspecified, 04/20/2021 2. Essential (primary) hypertension, 04/20/2021 3. Encounter for prophylactic measures, unspecified, 04/20/2021 Hospital Course Pt is a 80 F admitted with complaints of chest pain. pt was ruled out for ACS with negative cardiacenzymes, no EKG changes. Pt was seen by [facility] cardiology, recommended outpatient stress test and started on lisinopril 5 mg po q day for uncontrolled HTN. pt with some complaints of dysuria, negative UA, if persists to follow up with urology outpatient. Pt discharged home in improved condition to follow up with PCP and [facility] cardiology outpatient. d/w patient and daughter at [...] 14:59:00) Lymph Auto: 23.5 % (04/19/21 14:59:00) Dare Auto: 8.8 % (04/19/21 14:59:00) Eos Auto: 1.2 % (04/19/21 14:59:00) Basophil Auto: 0.8 % (04/19/21 14:59:00) Neutro Absolute: 2.9 E9/L (04/19/21 14:59:00) Lymph Absolute: 1 E9/L (04/19/21 14:59:00) Dare Absolute: 0.4 E9/L (04/19/21 14:59:00) Eos Absolute: [...] aspirin 81 mg O (more content not included)...[facility]Result Comment: Electronically Signed By: ÁNGELA SINHA, Patrick\.br\Date and Time Signed: 04/20/21 13:09 [id number] NoteChief Complaint Sharp pains in chest weakness [...] 14:59:00) Lymph Auto: 23.5 % (04/19/21 14:59:00) Dare Auto: 8.8 % (04/19/21 14:59:00) Eos Auto: 1.2 % (04/19/21 14:59:00) Basophil Auto: 0.8 % (04/19/21 14:59:00) Neutro Absolute: 2.9 E9/L (04/19/21 14:59:00) Lymph Absolute: 1 E9/L (04/19/21 14:59:00) Dare Absolute: 0.4 E9/L (04/19/21 14:59:00) Eos Absolute: [...] = 1 tab(s), Tab-Chew, (more content not included)...[facility]Result Comment: Electronically Signed By: Susanne SINHA, Andre\.br\Date and Time Signed: 04/19/21 21:01 [id number] History general Narrative - Reported* Type Description Date Medical History Bronchiectasis without complicat ion Medical History Essential hypertension Medical History Elevated cholesterol Surgical History BTL 11/28/2017 Hospitalization History see surgical history [employer] Other 04-09-2018 History general Narrative - Reported* Type Description Date Medical History Bronchiectasis without complicat ion Medical History Essential hypertension Medical History Elevated cholesterol Medical History BRVO left eye Surgical History BTL 11/28/2017 Hospitalization History see surgical history [facility] [employer] Other evaluation [facility] [employer] Other evaluation noteNo assessment information available [facility] Work Phone: evaluation note* Diagnosis Onset Date Resolution Status Bronchiectasis acute Hypertension acute Pulmonary nodule acute Suspected sleep apnea acute Fatigue noneactive [facility] Work Phone: evaluation note* Diagnosis Onset Date Resolution Status Bronchiectasis acute Hypertension acute Pulmonary nodule acute Suspected sleep apnea acute Fatigue noneactive Hypertension acute Left knee pain acute Acute bronchitis due to other specified organisms noneactive [facility] Work Phone: evaluation note* Diagnosis Onset Date Resolution Status Hypertension acute Left knee pain acute Acute bronchitis due to other specified organisms noneactive Anemia acute Bronchiectasis acute Chronic venous insufficiency of lower extremity acute Hypertension acute [facility] Work Phone: Evaluation note* Diagnosis Onset Date Resolution Status Anemia acute Bronchiectasis acute Chronic venous insufficiency of lower extremity acute Hypertension acute Hypertension acute Left knee pain acute Primary osteoarthritis of knee acute [facility] Work Phone: Evaluation note* Diagnosis Onset Date Resolution Status Anemia acute Bronchiectasis acute Chronic venous insufficiency of lower extremity acute Hypertension acute Hypertension acute Left knee pain acute Primary osteoarthritis of knee acute Hypertension acute Primary osteoarthritis of knee acute [facility] Work Phone: Evaluation note* Diagnosis Onset Date Resolution Status Admit Date Anemia acute October 30 8:26am Bronchiectasis acute October 8:26am Chronic venous insufficiency of lower extremity acute October 30, 2024 8:26am Hypertension acute October 30, 2024 8:26am Primary osteoarthritis of knee acute October 30, 2024 8:26am Pulmonary nodule acute October 302024 8:26am [facility] Work Phone: Reason for referral (narrative)* Reason Referral for SNHL, t innitus, otalgia/headache and dizziness Diagnosis 1 Tinnitus, right ear (H93.11) Diagnosis 2 Sensorineural hearin g loss, unilateral, right ear, 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 Clinical Notes Include [facility] [employer] Other Summary Purpose Family History Relationship Condition [...] DATE CREATED AUTHOR 03/14/2022 [facility] DATE CREATED AUTHOR AUTHOR'S ORGANIZ ATION 08/18/2022 [facility] DATE CREATED AUTHOR AUTHOR'S ORGANIZ ATION 08/23/2023 [facility] EPIC REASON FOR VISIT [...] BE BASED ON THE PRIMARY CLINICAL RECORDS. [employer] [facility]. provides no warranty or guarantee of the accuracy or completeness of information in this document.
[2025-03-26 08:33] LABS: Thyroid Stimulating Hormone 2.958 uIU/mL (0.358-3.740)
== END 2025-03-26 07:25 | disposition home or self-care (01) ==
LOC: LAB 07:25
PROVIDERS: PCP Internal Medicine; Visit Provider Internal Medicine
DX: E03.8 Other specified hypothyroidism (principal); R79.89 Other specified abnormal findings of blood chemistry; E06.9 Thyroiditis, unspecified
CPT/HCPCS: 36415; 84439; 84443; 84480

== ENCOUNTER 2025-05-13 09:13 | Outpatient (OUT) | payer MEDICARE, SELFPAY ==
--- OUTSIDE RECORDS SUMMARY | 2025-05-07 05:29 | XMS_ITS | Continuity of Care Document ---
Author Organization [facility] Address [address] [place] [address] Phone Care Team Providers Care Title Search Manager Name Role Phone Lg Oviedo DO Primary Care Provider Lg Oviedo DO Attending Provider Care Teams Patient Care Team Team Status: Active Member Role Status Dates Lg Oviedo DO Primary Care Provider Active Visit Care Team Team Status: Active Member Role Status Dates Lg Oviedo DO Primary Care Provider Active Start: February 06, 2025 Lg Oviedo DO Attending Provider Active Sta rt: February 06, 2025 Visit Care Team Team Status: Active Member Role Status Dates Lg Oviedo DO Primary Care Provider Active Start: March 26, 2025 Lg Oviedo DO Attending Provider Active Sta rt: March 26, 2025 Visit Care Team Team Status: Inactive Member Role Status Dates Lg Oviedo DO Primary Care Provider Active Start: April 16, 2025 End: April 16, 2025 Lg Oviedo DO Attending Provider Active Sta rt: April 16, 2025 End: April 16, 2025 Patient Care Team Team Status: Inactive Member Role Status Dates Lg Oviedo DO Primary Care Provider Active Start: May 07, 2025 End: May 07, 2025 Lg Oviedo DO Attending Provider Active Sta rt: May 07, 2025 End: May 07, 2025 Chief Complaint and Reason for Visit Chief Complaint Admit Date fatigue April 16, 2025 2: 39pm Wellness May 07, 2025 8:52am Reason for Visit Admit Date Abdominal aortic aneurysm April 16, 025 2:39pm Hypertension April 16, 2025 2: 39pm Pulmonary nodule April 16, 2025 2: 39pm Thyroid nodule April 16, 2025 2: 39pm Weight loss April 16, 2025 2: 39pm Viral syndrome Ursine 26th, 2025 2: 39pm Abdominal aortic aneurysm April 8:52am Bronchiectasis May 07, 2025 8:52am Chronic venous insufficiency of lower ex tremity May 07, 2025 8:52am Hypertension May 07, 2025 8:52am Mammogram declined May 07, 2025 8:52am Medicare annual wellness visit, subseque nt May 07, 2025 8:52am Pulmonary nodule May 07, 2025 8:52am Thyroid nodule May 07, 2025 8:52am Weight loss May 07, 2025 8:52am Allergies, Adverse Reactions, Alerts Allergen Type Severity Reaction Last Updated Verified Status Comments aspirin Allergy Unknown Unknown Reaction May 07, 2025 9:02am Yes Active Onset Date: 06/05/2015 ciprofloxacin Allergy Unknown Unknown Reaction May 07, 2025 9:02am Yes Active Onset Date: 06/26/2015 clindamycin Allergy Unknown Unknown Reaction May 07, 2025 9:02am Yes Active ibuprofen Allergy Unknown Unknown Reaction May 07, 2025 9:02am Yes Active Onset Date: 06/05/2015 Penicillins Allergy Unknown Unknown Reaction May 07, 2025 9:02am Yes Active azithromycin Adverse Reaction Moderate Diarrhea May 07, 2025 9:02am Yes Active doxycycline Adverse Reaction Unknown Diarrhea May 07, 2025 9:02am Yes Active Fluticasone Propionate *NASAL Allergy Unknown Unknown Reaction November 08, 2023 12:47pm No Active Social History Smoking Status Status Start Date End Date Date of Observa tion Never smoked tobacco (finding) December 22, 2023 11:21am Observation Status Observation Response Date of Response Legal Sex Female (finding) Sex Assigned At Female [birth year] Family History Relationship Condition Age at Onset Recorded Date/T jonathan mother Malignant neoplasm Unknown Problems Active Problems Medical Problem Onset Date Status Comments Chronic venous insufficiency of lower extremity Unknown Active Medicare annual wellness vis it, subsequent Unknown Active Episodic paroxysmal hemicran ia, not intractable Unknown Active Thyroid nodule Unknown Active US: right 6mm TR4, left 11mm TR2 - 01/2025 Subclinical hypothyroidism Unknown Active Mammogram declined Unknown Active Abdominal aortic aneurysm Unknown Active US : 3.6cm - 11/2024 Elevated cholesterol Unknown Active Anemia Unknown Active Pulmonary nodule Unknown Active CXR 6mm - ,CT small nodules - T small nodules, stable - 04/2023 Primary osteoarthritis of knee Unknown Active Suspected sleep apnea Unknown Active Weight loss Unknown Active Family history of aortic aneurysm Unknown Active Left knee pain Unknown Active Bronchiectasis Unknown Active Sensorineural hearing loss, unilateral, right ear, 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 Unknown Active Abdominal pain Unknown Active Hypertension Unknown Active Medications Medication Status Dose Units Route Directions Qty Days St art Date Stop Date End Date Instructions Adherence Amlodipine 5 mg tablet Discont inued 0 .ROUTE .COMPLEX October 24, 2023 2:00pm December 22, 2023 11:23 am TAKE 1 TABLET BY MOUTH EVERY DAY FOR 30 DAYS Azithromyci n 250 mg tablet Discont inued 250 MG PO As Directed 6 December 23, 2023 12:00a m February 26, 2024 7:52a m Amlodipine 5 mg tablet Discont inued 0 .ROUTE .COMPLEX February 15, 2024 9:15am Septe mber 2023 9:35a m TAKE 1 TABLET BY MOUTH EVERY DAY FOR 30 DAYS Lisinopril 10 mg tablet Active 0 .ROUTE .COMPLEX 30 Dece er 2023 10:11a m TAKE 1 TABLET BY MOUTH EVERY DAY Complies with drug therapy Lisinopril 10 mg tablet Discont inued 10 MG PO Daily November 09, 2023 12:00a m Decem abhishek 2023 10:11 am Doxycycline Hyclate 100 mg capsule Discont inued 100 MG PO Twice daily 20 November 09, 2023 12:00a m December 22, 2023 11:17 am Amlodipine 5 mg tablet Discont inued 5 MG PO Daily December 22, 2023 11:23a m February 15, 2024 9:15a m Doxycycline Hyclate 100 mg capsule Discont inued 100 MG PO Twice daily 14 December 22, 2023 12:00a m December 23, 2023 4:09p m Nitrofurant oin Monohyd/M-C ryst (Macrobid) 100 mg capsule Discont inued 100 MG PO Twice daily 10 December 28, 2023 12:00a m February 26, 2024 7:52a m must administer with a meal/food Amlodipine 5 mg tablet Discont inued 5 MG PO Daily October 24, 2023 1:00am October 24, 2023 2:00p m Aspirin 81 mg tablet,ramin yed release (DR/EC) Active 81 MG PO Daily 2023 12:00a m Complies with drug therapy Azithromyci n 250 mg tablet Discont inued 250 MG PO .COMPLEX 6 5 December 06, 2024 12:00a m January 28, 2025 8:29a m 2 tabs on first day followed by 1 tab on days 2-5 Immunizations Immunization Event Date Not Given Reason Dose Number [employer] Service Manager Lot Number Vaccine Information Statement (VIS) Detail Administration Location DTap, unspecified November 28, 2017 Pneumococcal Polysacc. Vaccine, 23 valent April 17, 2020 Td(adult) unspecified formulation October 25, 2016 [id number] Tetanus, Diphtheria adult, 5 Lf pres free abs October 25, 2016 Relevant Diagnostic Tests and/or Laboratory Data Laboratory Results Test Collection Date/Time Result Date/Time Result Interpretation Reference Range Result Comment Performing Site Total Triiodothy ronine February 06, 2025 7:00am February 06, 2025 7:00am 138 ng/dL 71-180 Performed at: [facility] [id number] Director: Jose Miguel Smith PhD, Phone: [phone] Free Thyroxine February 06, 2025 7:00am February 06, 2025 7:00am 1.19 ng/dL 0.76-1.46 Thyroid Stimulatin g Hormone 3rd Gen February 06, 2025 7:00am February 06, 2025 7:00am 4.344 u[iU]/m L Above high normal 0.358-3.74 0 Lipase February 06, 2025 7:00am February 06, 2025 7:00am 25.0 U/L 16.0-77.0 Amylase Level February 06, 2025 7:00am February 06, 2025 7:00am 60 U/L 25-115 Anion Gap February 06, 2025 7:00am February 06, 2025 7:00am 12.9 Basophils # (Auto) February 06, 2025 7:00am February 06, 2025 7:00am 0.0 10 3/uL 0.0-0.1 Total Triiodothy ronine March 26, 2025 7:37am March 26, 2025 7:37am 119 ng/dL 71-180 Performed at: - [facility] [id number] [place], [place] [id number] Director: Jose Miguel Smith PhD, Phone: [phone] Free Thyroxine March 26, 2025 7:37am March 26, 2025 7:37am 1.09 ng/dL 0.76-1.46 Thyroid Stimulatin g Hormone 3rd Gen March 26, 2025 7:37am March 26, 2025 7:37am 2.958 u[iU]/m L 0.358-3.74 0 Albumin/Gl obulin Ratio February 06, 2025 7:00am February 06, 2025 7:00am 1.1 Basophils (%) (Auto) February 06, 2025 7:00am February 06, 2025 7:00am 0.7 % 0.2-2.0 Albumin February 06, 2025 7:00am February 06, 2025 7:00am 3.7 g/dL 3.4-5.0 Eosinophil s # (Auto) February 06, 2025 7:00am February 06, 2025 7:00am 0.1 10 3/uL 0.0-0.7 Alkaline Phosphatas e February 06, 2025 7:00am February 06, 2025 7:00am 146 U/L Above high normal 46-116 Eosinophil s (%) (Auto) February 06, 2025 7:00am February 06, 2025 7:00am 2.8 % 0.9-7.0 Alanine Aminotrans ferase (ALT/SGPT) February 06, 2025 7:00am February 06, 2025 7:00am 23 U/L 14-59 Hematocrit February 06, 2025 7:00am February 06, 2025 7:00am 34.5 % Below low normal 36.0-48.0 Aspartate Amino Transf (AST/SGOT) February 06, 2025 7:00am February 06, 2025 7:00am 17 U/L 15-37 Hemoglobin February 06, 2025 7:00am February 06, 2025 7:00am 11.6 g/dL Below low normal 12.0-16.0 BUN/Creati nine Ratio February 06, 2025 7:00am February 06, 2025 7:00am 29.5 Immature Granulocyt e # (Auto) February 06, 2025 7:00am February 06, 2025 7:00am 0.01 10 3/uL 0.00-0.03 Blood Urea Nitrogen February 06, 2025 7:00am February 06, 2025 7:00am 18.0 mg/dL 7.0-18.0 Immature Granulocyt e % (Auto) February 06, 2025 7:00am February 06, 2025 7:00am 0.2 % 0.0-0.5 Calcium Level February 06, 2025 7:00am February 06, 2025 7:00am 9.1 mg/dL 8.5-10.1 Lymphocyte s # (Auto) February 06, 2025 7:00am February 06, 2025 7:00am 1.5 10 3/uL 1.2-3.8 Chloride Level February 06, 2025 7:00am February 06, 2025 7:00am 104 mmol/L 98-107 Lymphocyte s (%) (Auto) February 06, 2025 7:00am February 06, 2025 7:00am 35.2 % 20.5-60.0 Carbon Dioxide Level February 06, 2025 7:00am February 06, 2025 7:00am 30.0 mmol/L 21.0-32.0 Mean Corpuscula r Hemoglobin February 06, 2025 7:00am February 06, 2025 7:00am 33.1 pg 26.7-34.0 Creatinine February 06, 2025 7:00am February 06, 2025 7:00am 0.61 mg/dL 0.55-1.02 Mean Corpuscula r Hemoglobin Concent February 06, 2025 7:00am February 06, 2025 7:00am 33.6 g/dL 29.9-35.2 Estimated GFR () February 06, 2025 7:00am February 06, 2025 7:00am >60 >=60 mL/min/1.7 3m 2 Mean Corpuscula r Volume February 06, 2025 7:00am February 06, 2025 7:00am 98.6 fL 81.0-99.0 Estimated GFR (Non-Afric an Citizen [place] February 06, 2025 7:00am February 06, 2025 7:00am >60 >=60 mL/min/1.7 3m 2 Monocytes # (Auto) February 06, 2025 7:00am February 06, 2025 7:00am 0.5 10 3/uL 0.3-0.8 Globulin February 06, 2025 7:00am February 06, 2025 7:00am 3.4 g/dL Monocytes (%) (Auto) February 06, 2025 7:00am February 06, 2025 7:00am 10.6 % 1.7-12.0 Glucose Level February 06, 2025 7:00am February 06, 2025 7:00am 100 mg/dL 74-106 Mean Platelet Volume February 06, 2025 7:00am February 06, 2025 7:00am 11.4 fL 9.5-13.5 Potassium Level February 06, 2025 7:00am February 06, 2025 7:00am 3.9 mmol/L 3.5-5.1 Neutrophil s # (Auto) February 06, 2025 7:00am February 06, 2025 7:00am 2.2 10 3/uL 1.4-6.5 Sodium Level February 06, 2025 7:00am February 06, 2025 7:00am 143 mmol/L 136-145 Neutrophil s (%) (Auto) February 06, 2025 7:00am February 06, 2025 7:00am 50.5 % 43.0-75.0 Total Bilirubin February 06, 2025 7:00am February 06, 2025 7:00am 0.4 mg/dL 0.2-1.0 Platelet Count February 06, 2025 7:00am February 06, 2025 7:00am 282 10 3/uL 150-450 Total Protein February 06, 2025 7:00am February 06, 2025 7:00am 7.1 g/dL 6.4-8.2 Red Blood Count February 06, 2025 7:00am February 06, 2025 7:00am 3.50 10 6/uL Below low normal 4.20-5.40 Red Cell Distributi on Width February 06, 2025 7:00am February 06, 2025 7:00am 12.5 % 11.0-15.0 Corrected White Blood Count February 06, 2025 7:00am February 06, 2025 7:00am 4.3 10 3/uL 4.0-11.0 Vital Signs Vital Reading Result Reference Range Collection Date/Time Height 60.5 [in_i] April 16 2:56pm Weight 58.28 kg April 16 2:56pm Heart Rate 87 /min 60-100 April 16 2:56pm Respiratory rate 12 /min 12-24 March 2:56pm BP Systolic 135 mm[Hg] 100-140 April 16 2:56pm BP Diastolic 85 mm[Hg] 60-100 April 16 2:56pm BMI (Body Mass Index) 24.7 kg/m2 April 16, 2025 2:56pm Height 60.5 [in_i] May 07, 2025 9:08am Weight 59.42 kg May 07, 2025 9:08am Heart Rate 61 /min 60-100 May 07, 2025 9:08am Respiratory rate 12 /min -24 April 222024 9:08am BP Systolic 171 mm[Hg] 100-140 May 07, 2025 9:08am BP Diastolic 73 mm[Hg] 60-100 May 07, 2025 9:08am BMI (Body Mass Index) 25.1 kg/m2 2024 9:08am Advance Directives Advance Directive Response Recorded Date/ Time Advance Directives No September 2:36pm Insurance Providers Guarantor Aileen De Jesus Address [address] [place] [phone] Contact Info. Home Phone: Payer Policy Id Subscriber's Name Subscriber Id Effective Date Expiration Date Medicare Outpatient [id number] Aileen De Jesus [id number] [employer] [facility] [id number] Aileen De Jesus [id number] Encounters Encounter Location(s) Arrival/Admit Date Discharge/Depart Date Provider(s) Non-patient / Non-visit -[facility] February 06, 2025 7:00am Lg Oviedo DO Non-patient / Non-visit -[facility] March 26, 2025 7:37am Lg Oviedo DO Departed Physician/Prov ider Office Visit -[facility] April 16, 2025 2:39pm April 16, 2025 3:42pm Lg Oviedo DO Departed Physician/Prov ider Office Visit -[facility] May 07, 2025 8:52am May 07, 2025 9:28am Lg Oviedo DO Recent Diagnosis Onset Date Admit Date Abdominal aortic aneurysm Unknown April 16, 2025 2:39pm Hypertension Unknown April 16 2:39pm Pulmonary nodule Unknown April 16 2:39pm Thyroid nodule Unknown April 16 2:39pm Weight loss Unknown April 16 2:39pm Viral syndrome Unknown April 16 2:39pm Abdominal aortic aneurysm Unknown 2024 8:52am Bronchiectasis Unknown May 07, 2025 8:52am Chronic venous insufficiency of lower extremity Unknown May 07, 2025 8:52am Hypertension Unknown May 07, 2025 8:52am Mammogram declined Unknown April 8:52am Medicare annual wellness visit, subsequent Unkno wn May 07, 2025 8:52am Pulmonary nodule Unknown May 07, 2025 8:52am Thyroid nodule Unknown May 07, 2025 8:52am Weight loss Unknown May 07, 2025 8:52am Assessments Diagnosis Onset Date Resolution Status Admit Date Abdominal aortic aneurysm acute April 16, 2025 2:39pm Hypertension acute April 16, 2025 2:39pm Pulmonary nodule acute March 232024 2:39pm Thyroid nodule acute March 2:39pm Weight loss acute April 16, 2025 2:39pm Viral syndrome noneactive March 2:39pm Abdominal aortic aneurysm acute May 07, 2025 8:52am Bronchiectasis acute May 07, 2025 8:52am Chronic venous insufficiency of lower extremity acute April 8:52am Hypertension acute May 072024 8:52am Mammogram declined acute 2024 8:52am Medicare annual wellness visit, subsequent acute April 8:52am Pulmonary nodule acute Septembe r 2024 8:52am Thyroid nodule acute May 07, 2025 8:52am Weight loss acute April 8:52am Plan of Treatment Author Lg Oviedo [facility] Authored May 04, 2025 8:02am I have instructed this patie nt to consume a healthy, low-fat, low-salt diet. I have also encouraged them to continue exercise with weight loss to achieve/maintain a BMI < 30. I have instructed this patient on the correct procedure for obtaining home BP measurements: - rest for 5 minutes w/o talking. - positioned w/ feet on floor and arms supported. - average best 2/3 readings w/ goal < 135/85. Update office w/ home readings in 2 weeks. She has normal readings at home and has d/c'd all antihypertensive medications. Calibrated home w/ office and are similar. Unintentional but states eats less due to decreased appetite. 21 lbs weight loss in past 2.0 years. She denies associated heartburn, dysphagia, bloating, change in bowel habits, melena or hematochezia. No mammogram completed lately Chronic hoarseness w/ cough Hx of pulmonary and thyroid nodules LABS: - mild anemia w/ normal WBC, MCV and platelet count - elevated Alk Phos IMAGING: - CXR: hyperinflation, granulomatous changes - 01/2025 - RUQ US: contracted GB, no biliary dilatation, normal liver, pancreas and right kidney - 01/2025 - Thyroid US: right 0.6mm TR4 nodule, left 11mm TR2 nodule - 01/2025 Euthyroid by TSH, FT4, TT3 Thyroid US: right 0.6mm TR4 nodule, left 11mm TR2 nodule - 01/2025 Continue surveillance scans every year CXR 6mm - 04/2021, CT small nodules - 04/2022 CT small nodules, stable - 04/2023 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 I have also recommended use of support stockings. I instructed them to inspect their legs and feet daily for blisters and ulcerations. Wearing support stockings Mucinex and fluids to assist in clearing secretions. Anticipate increased coughing w/ seasonal changes and URI Denies much coughing or phlegm at this time I have instructed this patient on the recommended lifestyle changes, which includes a low fat, high fiber diet along with a regular exercise routine. I have also reviewed the recommended age-appropriate preventive testing for this patient. I have also reviewed the recommended vaccines for their age and risk factors. I have instructed this patient on monthly SBE and recommended yearly mammograms. Author Lg Oviedo [facility] Authored April 16, 2025 9: 29pm Unintentional but states eat s less due to decreased appetite. 21 lbs weight loss in past 2.0 years. She denies associated heartburn, dysphagia, bloating, change in bowel habits, melena or hematochezia. No mammogram completed lately Chronic hoarseness w/ cough Hx of pulmonary and thyroid nodules LABS: - mild anemia w/ normal WBC, MCV and platelet count - elevated Alk Phos IMAGING: - CXR: hyperinflation, granulomatous changes - 01/2025 - RUQ US: contracted GB, no biliary dilatation, normal liver, pancreas and right kidney - 01/2025 - Thyroid US: right 0.6mm TR4 nodule, left 11mm TR2 nodule - 01/2025 I have instructed this patient to consume a healthy, low-fat, low-salt diet. I have also encouraged them to continue exercise with weight loss to achieve/maintain a BMI < 30. I have instructed this patient on the correct procedure for obtaining home BP measurements: - rest for 5 minutes w/o talking. - positioned w/ feet on floor and arms supported. - average best 2/3 readings w/ goal < 135/85. Update office w/ home readings in 2 weeks. She has normal readings at home and has d/c'd all antihypertensive medications. Calibrated home w/ office and are similar. 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
--- OUTSIDE RECORDS SUMMARY | 2025-05-13 09:15 | XMS_ITS | Encounter Summary ---
Author Organization [facility] Address [address] [place] [address] Care Team Providers Care Salon Sales Consultant Name Role Phone Lg Oviedo DO Primary Care Provider [phone] Encounter Details Date Type Department Care Team (Late st Contact Info) Description 07/29/2023 Clinisync Result Encounter [facility] Department Unsolicited Lori Antoine MD [address] [facility] [address] [place] [address] Social History Tobacco Use Types Packs/Day Years Used Date Smoking Tobacco: Never Smokeless Tobacco: Never Alcohol Use Standard Drinks/Week Comments Not Currently 0 (1 standard drink = 0.6 oz pur e alcohol) Comments Unknown Sex and Gender Information Value Date Recorded Sex Assigned at Not on file Legal Sex Female 7:01 PM EDT Gender Identity Not on file Sexual Orientation Not on file documented as of this encounter Plan of Treatment Not on file documented as of this encounter Procedures Procedure Name Priority Date/Time Associated Diagnosis Comments MRI HEAD/BRAIN WO/W CONTR 07/29/2023 4:49 PM EST documented in this encounter Results * MRI HEAD/BRAIN WO/W CONTR (07/29/2023 4:49 PM EST) Anatomical Region Laterality Modality Radiographic Richa ging 07/29/2023 4:49 PM EST Narrative 07/29/2023 4:52 PM EST [facility] [address] [place] [address] Magnetic Resonance Report Signed Patient: LOLA ANDINO MR#: [id number] : 1940 Acct:[id number] Age/Sex: 83 / F ADM Date: 07/29/23 Loc: LAB Attending Dr: Lori Antoine M.D. Ordering Physician: Lori Antoine M.D. Date of Service: 07/29/23 Procedure(s): MR head/brain wo/w con Accession Number(s): [id number] cc: Lg Oviedo D.O.; Lori Antoine M.D. [place] [id number] Patient Name: LOLA ANDINO MRN: [facility]:[id number] date: 1940 Sex: F Assigned Patient Location: LAB Current Patient Location: LAB Accession/Order Number: [id number] Exam Date: 07/29/2023 08:45 Report Date: 07/29/2023 16:49 At the request of: LORI ANTOINE Procedure: MR head/brain wo/w con EXAM: MRI brain and internal auditory canals with and without contrast. HISTORY: Sensorineural hearing loss on left. COMPARISON: MRI brain and internal auditory canals with and without contrast, 04/05/2023. TECHNIQUE: Multiplanar, multisequence MRI imaging of the brain and internal auditory canals with and without contrast. FINDINGS: There is moderate mucosal thickening of the left maxillary sinus. Mastoid air cells are clear. Nasopharynx is normal. 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 Prior cataract surgery. Mild brain atrophy is stable. Large amount of chronic microvascular ischemic change again seen in the cerebral white matter. This is stable from the prior. No diffusion restriction. No acute ischemic infarction. No pathologic enhancement within the brain. No brain masses. There is no abnormal signal or pathologic enhancement in the internal auditory canals or inner ear structures. Cerebellopontine angles are unremarkable. No pathologic cranial nerve enhancement. No masses. MR/MR head/brain wo/w con IMPRESSION: 1. The internal auditory canals and cerebellopontine angle cisternal spaces are normal. 2. No acute infarction. Chronic microvascular ischemic changes stable. 3. No pathologic enhancement in the brain. No brain mass. Electronically authenticated by: GANGA JONES Date: 07/29/2023 16:49 Dictated By: Ganga Jones M.D. Signed By: 07/29/23 7402 DD/ 442 TD/TT: Pattern Drum Maker: Procedure Note Radiology, Radiologist, - 07/29/2023 [place] [address] Magnetic Resonance Report Signed Patient: LOLA ANDINO [facility]#: [id number] : 1940cct:[id number] Age/Sex: 83 / FADM Date: 07/29/23 Loc: LAB Attending Dr: Lori Antoine M.D. Ordering Physician: Lori Antoine M.D. Date of Service: 07/29/23 Procedure(s): MR head/brain wo/w con Accession Number(s): [id number] cc: Lg Oviedo D.O.; Lori Antoine M.D. [facility] [place] [id number] Patient Name: LOLA ANDINO MRN: [id number] date: 1940 Sex: F Assigned Patient Location: LAB Current Patient Location: LAB Accession/Order Number: [id number] Exam Date: 07/29/2023 08:45 Report Date: 07/29/2023 16:49 At the request of: LORI ANTOINE Procedure: MR head/brain wo/w con EXAM: MRI brain and internal auditory canals with and without contrast. HISTORY: Sensorineural hearing loss on left. COMPARISON: MRI brain and internal auditory canals with and withoutcontrast, 04/05/2023. TECHNIQUE: Multiplanar, multisequence MRI imaging of the brain andinternal auditory canals with and without contrast. FINDINGS: There is moderate mucosal thickening of the left maxillarysinus. Mastoid air cells are clear. Nasopharynx is normal. 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 Prior cataract surgery. Mild brain atrophy is stable. Large amount of chronic microvascularischemic change again seen in the cerebral white matter. This is stable from theprior. No diffusion restriction. No acute ischemic infarction. No pathologic enhancement within the brain. No brain masses. There is no abnormal signal or pathologic enhancement in the internalauditory canals or inner ear structures. Cerebellopontine angles are unremarkable.No pathologic cranial nerve enhancement. No masses. MR/MR head/brain wo/w con IMPRESSION: 1. The internal auditory canals and cerebellopontine angle cisternalspaces are normal. 2. No acute infarction. Chronic microvascular ischemic changes stable. 3. No pathologic enhancement in the brain. No brain mass. Electronically authenticated by: GANGA JONES Date: 07/29/2023 16:49 Dictated By: Ganga Jones M.D. Signed By:07/29/231651 DD/ 48 TD/TT: Pattern Drum Maker: us Lori Antoine MD IMG XR PROCEDURES Final Resul t documented in this encounter Visit Diagnoses Not on filedocumented in this encounter Care Teams Salon Sales Consultant Relationship Specialty Start Date End Date Lg Oviedo DO PCP - General Internal Medicine 05/20/23 documented as of this encounter
--- OUTSIDE RECORDS SUMMARY | 2025-05-13 09:15 | XMS_ITS | Clinical Summary ---
Author Organization [facility] Address [address] [place] [address] Care Team Providers Care Emergency Vehicle Dispatcher Name Role Phone Lg Oviedo DO Primary Care Provider [phone] Allergies Active Allergy Reactions Criticality Noted Date Comments Ciprofloxacin 06/26/2015 Other Reaction(s): Unknown Clindamycin 07/12/2023 Other Reaction(s): Unknown Ibuprofen 06/05/2015 Other Reaction(s): Unknown Penicillins 07/12/2023 Other Reaction(s): Hives, Unknown Medications lisinopril 10 MG tablet Take 10 mg by mouth 1 (one) time each day at the same time. 08/09/2022 Active amLODIPine (Norvasc) 5 MG tablet Take 5 mg by mouth in the morning. Active aspirin 81 MG EC tablet Take 81 mg by mouth in the morning. Active Active Problems Problem Noted Date Diagnosed Date Asymmetric SNHL (sensorineural hearing loss) Left-sided tinnitus 07/20/2023 Bilateral hearing loss 07/12/2023 Bronchiectasis without complication 07/12/2023 Claustrophobia 07/12/2023 Elevated cholesterol 07/12/2023 Episodic paroxysmal hemicrania, not intractable 07/12/2023 Primary hypertension 07/12/2023 Subjective tinnitus 07/12/2023 Immunizations Immunization Administration Dates Next Due Pneumococcal Polysaccharide PPSV23 04/17/2020 Tdap 10/25/2016 Family History Medical History Relation Name Comments Heart disease Father Heart disease Sibling Relation Name Status Comments Father Sibling Social History Tobacco Use Types Packs/Day Years Used Date Smoking Tobacco: Never Smokeless Tobacco: Never Tobacco Cessation:Counseling Given: Not Answered Alcohol Use Standard Drinks/Week Comments Not Currently 0 (1 standard drink = 0.6 oz pur e alcohol) Comments Unknown Sex and Gender Information Value Date Recorded Sex Assigned at Not on file Legal Sex Female 7:01 PM EDT Gender Identity Not on file Sexual Orientation Not on file Last Filed Vital Signs Vital Sign [place] Time Taken Comments Blood Pressure 131/76 08/23/2023 10:21 AM EST Pulse - - Temperature - - Respiratory Rate - - Oxygen Saturation - - Inhaled Oxygen Concentration - - Weight 68.9 kg (152 lb) 08/23/2023 10:21 AM EST Height 154.9 cm (5' 1 ) 08/23/2023 10:21 AM EST Body Mass Index 28.72 08/23/2023 10:21 AM EST Plan of Treatment Not on file Insurance [employer] Care Teams Emergency Vehicle Dispatcher Relationship Specialty Start Date End Date Lg Oviedo DO PCP - General Internal Medicine 05/20/23
--- OUTSIDE RECORDS SUMMARY | 2025-05-13 09:20 | XMS_ITS | CCD ---
Author Organization [facility]iniSymi Care Team Providers Care Transportation Security Officer Name Role Phone PREET, DR VARGHESE Admitting [...] Bishop Referring Unavailable LORI GUNTER Attending Unavailable Lg Oviedo DO Primary Care Provider Lg Oviedo DO Attending Provider Lg Oviedo DO Primary Care Provider [phone] Preet BOLTON, Lg Attending Provider Allergies Allergy Classification Reported Allergen(s) Allergy Type Date of Onset Reaction(s) Facility (11 sources) Clindamycin Drug Allergy 05-12-20 23 Unknown Reaction [facility] Repository (12 sources) Penicillin Drug Allergy Unknown [facility] Repository (20 sources) Aspirin Drug Allergy 06-05-20 15 Unknown, Unknown Reaction [facility] Comment on above: Onset Date: 06/05/20 15 (20 sources) Ciprofloxacin Drug Allergy 06-26-20 15 Unknown, Unknown Reaction [facility] Comment on above: Onset Date: 06/26/20 15 (11 sources) Clindamycin Drug Allergy Unknown [facility] Other (20 sources) Ibuprofen Drug Allergy 06-05-20 15 Unknown, Unknown Reaction [facility] Comment on above: Onset Date: 06/05/20 15 (11 sources) Fluticasone Propionate *NASAL AGENTS - SYSTEMIC AN Propensity to adverse reactions 06-26-20 Unknown [facility] Other (10 sources) Penicillins Allergy to substance 05-12-20 Unknown Reaction [facility] (10 sources) Fluticasone Propionate *NASAL Allergy to substance 05-12-20 Unknown Reaction [facility] (2 sources) Azithromycin Drug Allergy 04-16-20 Diarrhea [facility] (2 sources) Doxycycline Drug Allergy 04-16-20 Diarrhea [facility] Medications Current Medications Medication Drug Class(es) Dates Sig (Normalized) Sig (Original) aspirin 81 mg delayed release oral tablet (5 sources) Platelet Aggregation Inhibitor, Nonsteroidal Anti-inflammatory Drug Start: 05-02-2024 take 1 tablet by mouth once daily Aspirin 81 mg tablet,delayed release (DR/EC) Active 81 MG PO Daily May 02, 2024 12:00am Complies with drug therapy diazePAM 5 mg oral tablet (5 sources) [...] MOUTH EVERY DAY Complies with drug therapy Start: 11-09-2023 End: 08-05-2024 take 1 tablet [...] Apr, Active azithromycin 250 mg oral tablet (11 sources) Macrolide Antimicrobial Start: 12-06-2024 End: 01-28-2025 [...] 7:52am doxycycline hyclate 100 mg oral capsule (17 sources) Tetracycline-class Drug Start: 11-09-2023 End: 12-23-2023 take 1 capsule by mouth twice daily Doxycycline Hyclate 100 mg capsule Discontinued 100 MG PO Twice daily 14 December 22, 2023 12:00am December 23, 2023 4:09pm nitrofurantoin, macrocrystals 25 mg / nitrofurantoin, monohydrate 75 mg oral capsule (7 sources) Nitrofuran Antibacterial Start: 12-28-2023 End: 02-26-2024 take 1 capsule by mouth twice daily at mealtime Nitrofurantoin Monohyd/M-Cryst (Macrobid) 100 mg capsule Discontinued 100 MG PO Twice daily 10 December 28, 2023 12:00am February 26, 2024 7:52am must administer with a meal/food Problems Active Problems Problem Classification Problem Date Documented Date Episodic/Chronic Abdominal pain (3 sources) Abdominal pain; Translations: [Unspecified abdominal pain] 01-28-2025 Episodic Acute bronchitis (3 sources) Acute bronchitis due to other specified organisms; Translations: [Acute bronchitis] 12-22-2023 Episodic Anxiety disorders (13 sources) Claustrophobia; Translations: [Claustrophobia] Chronic Aortic; peripheral; and visceral artery aneurysms (6 sources) Abdominal aortic aneurysm; Translations: [Abdominal aortic aneurysm (AAA)] 12-13-2024 Chronic Comment on above: US: 3.6cm - 11/2024 Chronic obstructive pulmonary disease and bronchiectasis (20 sources) Bronchiectasis; Translations: [Bronchiectasis, uncomplicated] 11-08-2023 Chronic Conditions associated with dizziness or vertigo (3 sources) Dizziness and giddiness Episodic Deficiency and other anemia (9 sources) Anemia, unspecified; Translations: [Anemia, unspecified] Onset: 08-10-2022 Episodic Deficiency and other anemia (7 sources) Anemia; Translations: [Anemia, unspecified] 02-28-2024 Episodic [...] [Other malaise and fatigue] 11-09-2023 Episodic Osteoarthritis (12 sources) Osteoarthritis of knee; Translations: [Unilateral primary osteoarthritis, unspecified knee] 02-26-2024 Chronic Other aftercare (2 sources) Other director long term care (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; Translations: [OTH CARE HOME CURRENT DRUG THERAPY] Onset: 05-10-2022 Episodic Other connective tissue disease (6 sources) Disease suspected; Translations: [Other symptoms and signs involving the nervous system] 11-09-2023 Episodic Other connective tissue disease (2 sources) Other symptoms and signs involving the nervous system; Translations: [Other symptoms involving nervous and musculoskeletal systems] 11-09-2023 Episodic Other connective tissue disease (3 sources) Suspected respiratory disease; Translations: [Other symptoms and signs involving the nervous system] 11-09-2023 Episodic Other diseases of veins and lymphatics (8 sources) Venous insufficiency of leg; Translations: [Venous [...] Onset: 04-06-2022 Episodic Other lower respiratory disease (19 sources) Nodule of lung; Translations: [Solitary pulmonary nodule] 11-08-2023 Episodic Comment on above: CXR 6mm - 04/2021,CT small nodules - T small nodules, stable - 04/2023 Other non-traumatic joint disorders (12 sources) Pain in left knee; Translations: [Left knee pain] 12-22-2023 Episodic Other nutritional; endocrine; and metabolic disorders (5 sources) Weight decreased; Translations: [Abnormal weight loss] 01-28-2025 Episodic Other screening for suspected conditions (not mental disorders or infectious disease) (1 source) Other specified abnormal findings of blood chemistry Episodic Residual codes; unclassified (1 source) Procedure and treatment not carried out because of patient's decision for unspecified reasons Episodic Residual codes; unclassified (5 sources) Mammogram declined; Translations: [Procedure and treatment not carried out because of patient's decision for unspecified reasons] 05-02-2024 Episodic Residual codes; unclassified (3 sources) FH: Aortic aneurysm; Translations: [Family history of [...] retinal vein occlusion, left eye, stable Chronic Thyroid disorders (7 sources) Thyroid nodule; Translations: [Nontoxic single thyroid nodule] 02-06-2025 Chronic Comment on above: US: right 6mm TR4, l eft 11mm TR2 - 01/2025 Viral infection (1 source) Viral disease; Translations: [Viral infection, unspecified] 04-16-2025 Episodic Past or Other Problems Problem Classification Problem Date Documented Da te Episodic/Chronic Other lower respiratory disease (4 sources) Hemoptysis; Translations: [HEMOPTYSIS] Onset: 01-06-2022 Episodic Results Test Name Value Interpretation Reference Range Facility Laboratory - Chemistry and C hemistry - challengeOrdered By: Lg Oviedo on 03-26-2025 Free T4 [Mass/Vol] 1.09 ng/dL 0.76-1.46 [place] TSH Qn 2.958 m[IU]/L 0.358-3.740 [facility] No Panel InformationOrdered By: Lg Oviedo on 03-26-2025 Total Triiodothyronine 119 ng/dL 71-180 [facility] Comment on above: Performed at: [address] [id number] Director: Jose Miguel Smith PhD, Phone: [phone] Basophils Auto (Bld) [#/Vol] Ordered By: Lg Oviedo on 02-06-2025 Basophils (Bld) [#/Vol] 0.0 10 3/uL 0.0-0.1 [facility] Basophils/100 WBC Auto (Bld) Ordered By: Lg Oviedo on 02-06-2025 Basophils/100 WBC (Bld) 0.7 % 0.2-2.0 [facility] Eosinophils/100 WBC Auto (Bl d)Ordered By: Lg Oviedo on 02-06-2025 Eosinophils/100 WBC (Bld) 2.8 % 0.9-7.0 [facility] Erythrocyte distribution wid th Auto (RBC) [Ratio]Ordered By: Lg Oviedo on 02-06-2025 Erythrocyte distribution width (RBC) [Ratio] 12.5 % 11.0-15.0 [facility] Globulin Calc (S) [Mass/Vol] Ordered By: Lg Oviedo on 02-06-2025 Globulin (S) [Mass/Vol] 3.4 g/dL F [facility] Glomerular filtration rate ( GFR) estimation in non- AmericanOrdered By: Lg Oviedo on 02-06-2025 GFR/1.73 sq M.predicted among non-blacks MDRD (S/P/Bld) [Vol rate/Area] mL/min/{1.73_m2} >=60 mL/min/1.73m 2 [facility] Hematocrit Auto (Bld) [Volum e fraction]Ordered By: Lg Oviedo on 02-06-2025 Hematocrit (Bld) [Volume fraction] 34.5 % Low 36.0-48.0 [facility] Hemoglobin [Mass/volume] in BloodOrdered By: Lg Oviedo on 02-06-2025 Hemoglobin (Bld) [Mass/Vol] 11.6 g/dL Low 12.0-16.0 [facility] Laboratory - Chemistry and C hemistry - challengeOrdered By: Lg Oviedo on 02-06-2025 Albumin [Mass/Vol] 3.7 g/dL 3.4-5.0 [place] ALP [Catalytic activity/Vol] 146 U/L High 46-116 [facility] ALT [Catalytic activity/Vol] 23 U/L 14-59 [facility] Amylase [Catalytic activity/Vol] 60 U/L 25-115 [facility] AST [Catalytic activity/Vol] 17 U/L 15-37 [facility] Bilirubin [Mass/Vol] 0.4 mg/dL 0.2-1.0 [facility] Calcium [Mass/Vol] 9.1 mg/dL 8.5-10.1 [place] Chloride [Moles/Vol] 104 mmol/L 98-107 [facility] CO2 [Moles/Vol] 30.0 mmol/L 21.0-32.0 [facility] Creatinine [Mass/Vol] 0.61 mg/dL 0.55-1.02 [facility] Free T4 [Mass/Vol] 1.19 ng/dL 0.76-1.46 [place] GFR/1.73 sq M.predicted MDRD (S/P/Bld) [Vol rate/Area] mL/min/{1.73_m2} >=60 mL/min/1.73m 2 [facility] Glucose [Mass/Vol] 100 mg/dL 74-106 [place] Lipase [Catalytic activity/Vol] 25.0 U/L 16.0-77.0 [facility] Potassium [Moles/Vol] 3.9 mmol/L 3.5-5.1 [facility] Protein [Mass/Vol] 7.1 g/dL 6.4-8.2 [place] Sodium [Moles/Vol] 143 mmol/L 136-145 [place] TSH Qn 4.344 m[IU]/L High 0.358-3.740 [facility] Urea nitrogen [Mass/Vol] 18.0 mg/dL 7.0-18.0 [facility] Urea nitrogen/Creatinine [Mass ratio] 29.5 mg/mg [facility] Laboratory - Hematology and Cell countsOrdered By: Lg Oviedo on 02-06-2025 Immature granulocytes/100 WBC (Bld) 0.2 % 0.0-0.5 [facility] Leukocytes [#/volume] correc pool for nucleated erythrocytes in Blood by Automated counOrdered By: Lg Oviedo on 02-06-2025 WBC corrected for nucl RBC Auto (Bld) [#/Vol] 4.3 10 3/uL 4.0-11.0 [facility] Lymphocytes Auto (Bld) [#/Vo l]Ordered By: Lg Oviedo on 02-06-2025 Lymphocytes (Bld) [#/Vol] 1.5 10 3/uL 1.2-3.8 [facility] Lymphocytes/100 WBC Auto (Bl d)Ordered By: Lg Oviedo on 02-06-2025 Lymphocytes/100 WBC (Bld) 35.2 % 20.5-60.0 [facility] MCH Auto (RBC) [Entitic mass ]Ordered By: Lg Oviedo on 02-06-2025 MCH (RBC) [Entitic mass] 33.1 pg 26.7-34.0 [facility] MCHC Auto (RBC) [Mass/Vol]Or dered By: Lg Oviedo on 02-06-2025 MCHC (RBC) [Mass/Vol] 33.6 g/dL 29.9-35.[address] [facility] MCV Auto (RBC) [Entitic vol] Ordered By: Lg Oviedo on 02-06-2025 MCV (RBC) [Entitic vol] 98.6 fL 81.0-99.0 F [facility] Monocytes Auto (Bld) [#/Vol] Ordered By: Lg Oviedo on 02-06-2025 Monocytes (Bld) [#/Vol] 0.5 10 3/uL 0.3-0.8 [facility] Monocytes/100 WBC Auto (Bld) Ordered By: Lg Oviedo on 02-06-2025 Monocytes/100 WBC (Bld) 10.6 % 1.7-12.0 [facility] Neutrophils Auto (Bld) [#/Vo l]Ordered By: Lg Oviedo on 02-06-2025 Neutrophils (Bld) [#/Vol] 2.2 10 3/uL 1.4-6.5 [facility] Neutrophils/100 WBC Auto (Bl d)Ordered By: Lg Oviedo on 02-06-2025 Neutrophils/100 WBC (Bld) 50.5 % 43.0-75.0 [facility] No Panel InformationOrdered By: Lg Oviedo on 02-06-2025 Eosinophils # (Auto) 0.1 10 3/uL 0.0-0.7 [facility] Immature Granulocyte # (Auto) 0.01 10 3/uL 0.00-0.03 [facility] Total Triiodothyronine 138 ng/dL 71-180 [facility] Comment on above: Performed at: [facility] [address] [id number] Director: Jose Miguel Smith PhD, Phone: [phone] Platelet mean volume Auto (B ld) [Entitic vol]Ordered By: Lg Oviedo on 02-06-2025 Platelet mean volume (Bld) [Entitic vol] 11.4 fL 9.5-13.5 [facility] Platelets Auto (Bld) [#/Vol] Ordered By: Lg Oviedo on 02-06-2025 Platelets (Bld) [#/Vol] 282 10 3/uL 150-450 [facility] RBC Auto (Bld) [#/Vol]Ordere d By: Lg Oviedo on 02-06-2025 RBC (Bld) [#/Vol] 3.50 10 6/uL Low 4.20-5.40 [facility] Serum or plasma albumin/glob ulin mass ratioOrdered By: Lg Oviedo on 02-06-2025 Albumin/Globulin [Mass ratio] 1.1 {ratio} [facility] Serum or plasma anion gap de terminationOrdered By: Lg Oviedo on 02-06-2025 Anion gap [Moles/Vol] 12.9 mmol/L [facility] Basophils Auto (Bld) [#/Vol] on 10-31-2024 Basophils (Bld) [#/Vol] Automated basoph il count 0.0-0.1 [facility] Basophils/100 WBC Auto (Bld) on 10-31-2024 Basophils/100 WBC (Bld) Automated basoph il % 0.2-2.0 [facility] Eosinophils/100 WBC Auto (Bl d)on 10-31-2024 Eosinophils/100 WBC (Bld) Automated eosinophil % 0.9-7.0 [facility] Erythrocyte distribution wid th Auto (RBC) [Ratio]on 10-31-2024 Erythrocyte distribution width (RBC) [Ratio] Erythrocyte distribution width [Ratio] by Automated count 11.0-15.0 [facility] Hematocrit Auto (Bld) [Volum e fraction]on 10-31-2024 Hematocrit (Bld) [Volume fraction] Hematocrit [Volume Fraction] of Blood by Automated count Low 36.0-48.0 [facility] Hemoglobin [Mass/volume] in Bloodon 10-31-2024 Hemoglobin (Bld) [Mass/Vol] Hemoglobin [Mass/volume] in Blood Low 12.0-16.0 [facility] Laboratory - Hematology and Cell countson 10-31-2024 Immature granulocytes/100 WBC (Bld) 0.0 % 0.0-0.5 [facility] Leukocytes [#/volume] correc pool for nucleated erythrocytes in Blood by Automated counon 10-31-2024 WBC corrected for nucl RBC Auto (Bld) [#/Vol] Leukocytes [#/volume] corrected for nucleated erythrocytes in Blood by Automated coun 4.0-11.0 [facility] Lymphocytes Auto (Bld) [#/Vo l]on 10-31-2024 Lymphocytes (Bld) [#/Vol] Lymphocytes [#/volume] in Blood by Automated count 1.2-3.8 [facility] Lymphocytes/100 WBC Auto (Bl d)on 10-31-2024 Lymphocytes/100 WBC (Bld) Lymphocytes/100 leukocytes in Blood by Automated count 20.5-60.0 [facility] MCH Auto (RBC) [Entitic mass ]on 10-31-2024 MCH (RBC) [Entitic mass] MCH [Entitic mass] by Automated count 26.7-34.0 [facility] MCHC Auto (RBC) [Mass/Vol]on 10-31-2024 MCHC (RBC) [Mass/Vol] MCHC [Mass/volume] by Automated count 29.9-35.2 [facility] MCV Auto (RBC) [Entitic vol] on 10-31-2024 MCV (RBC) [Entitic vol] MCV [Entitic volume] by Automated count High 81.0-99.0 [facility] Monocytes Auto (Bld) [#/Vol] on 10-31-2024 Monocytes (Bld) [#/Vol] Automated blood monocyte count 0.3-0.8 [facility] Monocytes/100 WBC Auto (Bld) on 10-31-2024 Monocytes/100 WBC (Bld) Automated monocy te % 1.7-12.0 [facility] Neutrophils Auto (Bld) [#/Vo l]on 10-31-2024 Neutrophils (Bld) [#/Vol] Neutrophils [#/volume] in Blood by Automated count 1.4-6.5 [facility] Neutrophils/100 WBC Auto (Bl d)on 10-31-2024 Neutrophils/100 WBC (Bld) Automated neutrophil % 43.0-75.0 [facility] No Panel Informationon 10-31 Eosinophils # (Auto) 0.2 10 3/uL 0.0-0.7 [facility] Immature Granulocyte # (Auto) 0.00 10 3/uL 0.00-0.03 [facility] Platelet mean volume Auto (B ld) [Entitic vol]on 10-31-2024 Platelet mean volume (Bld) [Entitic vol] Platelet mean volume [Entitic volume] in Blood by Automated count 9.5-13.5 [facility] Platelets Auto (Bld) [#/Vol] on 10-31-2024 Platelets (Bld) [#/Vol] Platelets [#/volume] in Blood by Automated count 150-450 [facility] RBC Auto (Bld) [#/Vol]on RBC (Bld) [#/Vol] Erythrocytes [#/volume] in Blood by Automated count Low 4.20-5.40 [facility] Basophils Auto (Bld) [#/Vol] on 04-27-2024 Basophils (Bld) [#/Vol] 0.0 10 3/uL 0.0-0.1 [facility] Basophils/100 WBC Auto (Bld) on 04-27-2024 Basophils/100 WBC (Bld) 0.9 % 0.2-2.0 [facility] Eosinophils/100 WBC Auto (Bl d)on 04-27-2024 Eosinophils/100 WBC (Bld) 2.6 % 0.9-7.0 [facility] Erythrocyte distribution wid th Auto (RBC) [Ratio]on 04-27-2024 Erythrocyte distribution width (RBC) [Ratio] 12.6 % 11.0-15.0 [facility] Hematocrit Auto (Bld) [Volum e fraction]on 04-27-2024 Hematocrit (Bld) [Volume fraction] 34.6 % Low 36.0-48.0 [facility] Hemoglobin [Mass/volume] in Bloodon 04-27-2024 Hemoglobin (Bld) [Mass/Vol] 11.7 g/dL Low 12.0-16.0 [facility] Iron binding capacity [Mass/ volume] in Serum or Plasmaon 04-27-2024 Iron binding capacity [Mass/Vol] 232.0 ug/dL Low 250.0-450.0 [facility] Iron saturation [Mass Fracti on] in Serum or Plasmaon 04-27-2024 Iron saturation [Mass fraction] 36.6 % [facility] Laboratory - Chemistry and C hemistry - challengeon 04-27-2024 Cobalamin (Vitamin B12) [Mass/Vol] 947 pg/mL 232-1245 [facility] Comment on above: Performed at: [address] [id number] Director: Jose Miguel Smith PhD, Phone: [phone] Ferritin [Mass/Vol] 218.0 ng/mL 8.0-252.0 [facility] Iron [Mass/Vol] 85.0 ug/dL 50.0-170.0 [facility] Laboratory - Hematology and Cell countson 04-27-2024 Immature granulocytes/100 WBC (Bld) 0.2 % 0.0-0.5 [facility] Leukocytes [#/volume] correc pool for nucleated erythrocytes in Blood by Automated counon 04-27-2024 WBC corrected for nucl RBC Auto (Bld) [#/Vol] 4.6 10 3/uL 4.0-11.0 [facility] Lymphocytes Auto (Bld) [#/Vo l]on 04-27-2024 Lymphocytes (Bld) [#/Vol] 1.1 10 3/uL Low 1.2-3.8 [facility] Lymphocytes/100 WBC Auto (Bl d)on 04-27-2024 Lymphocytes/100 WBC (Bld) 24.5 % 20.5-60.0 [facility] MCH Auto (RBC) [Entitic mass ]on 04-27-2024 MCH (RBC) [Entitic mass] 33.1 pg 26.7-34.0 [facility] MCHC Auto (RBC) [Mass/Vol]on 04-27-2024 MCHC (RBC) [Mass/Vol] 33.8 g/dL 29.9-35.2 [facility] MCV Auto (RBC) [Entitic vol] on 04-27-2024 MCV (RBC) [Entitic vol] 98.0 fL 81.0-99.0 [facility] Monocytes Auto (Bld) [#/Vol] on 04-27-2024 Monocytes (Bld) [#/Vol] 0.4 10 3/uL 0.3-0.8 [facility] Monocytes/100 WBC Auto (Bld) on 04-27-2024 Monocytes/100 WBC (Bld) 9.5 % 1.7-12.0 [facility] Neutrophils Auto (Bld) [#/Vo l]on 04-27-2024 Neutrophils (Bld) [#/Vol] 2.9 10 3/uL 1.4-6.5 [facility] Neutrophils/100 WBC Auto (Bl d)on 04-27-2024 Neutrophils/100 WBC (Bld) 62.3 % 43.0-75.0 [facility] No Panel Informationon 04-27 Eosinophils # (Auto) 0.1 10 3/uL 0.0-0.7 [facility] Immature Granulocyte # (Auto) 0.01 10 3/uL 0.00-0.03 [facility] Platelet mean volume Auto (B ld) [Entitic vol]on 04-27-2024 Platelet mean volume (Bld) [Entitic vol] 10.4 fL 9.5-13.5 [facility] Platelets Auto (Bld) [#/Vol] on 04-27-2024 Platelets (Bld) [#/Vol] 289 10 3/uL 150-450 [facility] RBC Auto (Bld) [#/Vol]on RBC (Bld) [#/Vol] 3.53 10 6/uL Low 4.20-5.40 [facility] Basophils Auto (Bld) [#/Vol] on 02-29-2024 Basophils (Bld) [#/Vol] 0.0 10 3/uL 0.0-0.1 [facility] Basophils/100 WBC Auto (Bld) on 02-29-2024 Basophils/100 WBC (Bld) 0.9 % 0.2-2.0 [facility] Eosinophils/100 WBC Auto (Bl d)on 02-29-2024 Eosinophils/100 WBC (Bld) 4.4 % 0.9-7.0 [facility] Erythrocyte distribution wid th Auto (RBC) [Ratio]on 02-29-2024 Erythrocyte distribution width (RBC) [Ratio] 12.4 % 11.0-15.0 [facility] Hematocrit Auto (Bld) [Volum e fraction]on 02-29-2024 Hematocrit (Bld) [Volume fraction] 34.2 % Low 36.0-48.0 [facility] Hemoglobin [Mass/volume] in Bloodon 02-29-2024 Hemoglobin (Bld) [Mass/Vol] 11.4 g/dL Low 12.0-16.0 [facility] Iron binding capacity [Mass/ volume] in Serum or Plasmaon 02-29-2024 Iron binding capacity [Mass/Vol] 237.0 ug/dL Low 250.0-450.0 [facility] Iron saturation [Mass Fracti on] in Serum or Plasmaon 02-29-2024 Iron saturation [Mass fraction] 46.0 % [facility] Laboratory - Chemistry and C hemistry - challengeon 02-29-2024 Cobalamin (Vitamin B12) [Mass/Vol] 800.0 pg/mL 193.0-986.0 [facility] Ferritin [Mass/Vol] 206.0 ng/mL 8.0-252.0 [facility] Iron [Mass/Vol] 109.0 ug/dL 50.0-170.0 [facility] Laboratory - Hematology and Cell countson 02-29-2024 Immature granulocytes/100 WBC (Bld) 0.2 % 0.0-0.5 [facility] Leukocytes [#/volume] correc pool for nucleated erythrocytes in Blood by Automated counon 02-29-2024 WBC corrected for nucl RBC Auto (Bld) [#/Vol] 4.6 10 3/uL 4.0-11.0 [facility] Lymphocytes Auto (Bld) [#/Vo l]on 02-29-2024 Lymphocytes (Bld) [#/Vol] 1.2 10 3/uL 1.2-3.8 [facility] Lymphocytes/100 WBC Auto (Bl d)on 02-29-2024 Lymphocytes/100 WBC (Bld) 26.9 % 20.5-60.0 [facility] MCH Auto (RBC) [Entitic mass ]on 02-29-2024 MCH (RBC) [Entitic mass] 32.6 pg 26.7-34.0 [facility] MCHC Auto (RBC) [Mass/Vol]on 02-29-2024 MCHC (RBC) [Mass/Vol] 33.3 g/dL 29.9-35.2 [facility] MCV Auto (RBC) [Entitic vol] on 02-29-2024 MCV (RBC) [Entitic vol] 97.7 fL 81.0-99.0 [facility] Monocytes Auto (Bld) [#/Vol] on 02-29-2024 Monocytes (Bld) [#/Vol] 0.5 10 3/uL 0.3-0.8 [facility] Monocytes/100 WBC Auto (Bld) on 02-29-2024 Monocytes/100 WBC (Bld) 11.1 % 1.7-12.0 [facility] Neutrophils Auto (Bld) [#/Vo l]on 02-29-2024 Neutrophils (Bld) [#/Vol] 2.6 10 3/uL 1.4-6.5 [facility] Neutrophils/100 WBC Auto (Bl d)on 02-29-2024 Neutrophils/100 WBC (Bld) 56.5 % 43.0-75.0 [facility] No Panel Informationon 02-28 Eosinophils # (Auto) 0.2 10 3/uL 0.0-0.7 [facility] Immature Granulocyte # (Auto) 0.01 10 3/uL 0.00-0.03 [facility] Platelet mean volume Auto (B ld) [Entitic vol]on 02-29-2024 Platelet mean volume (Bld) [Entitic vol] 11.3 fL 9.5-13.5 [facility] Platelets Auto (Bld) [#/Vol] on 02-29-2024 Platelets (Bld) [#/Vol] 283 10 3/uL 150-450 [facility] RBC Auto (Bld) [#/Vol]on RBC (Bld) [#/Vol] 3.50 10 6/uL Low 4.20-5.40 [facility] Laboratory - Chemistry and C hemistry - challengeon 12-28-2023 Bilirubin Ql (U) Negative [facility] Glucose (U) [Mass/Vol] [facility] Ketones Ql (U) Negative [facility] pH (U) 6.0 [pH] [facility] Specific gravity (U) [Rel density] 1.015 [facility] Urobilinogen (U) [Mass/Vol] 0.2 mg/dL [facility] Laboratory - Specimen inform ationon 12-28-2023 Appearance (U) Cloudy [facility] Color (U) Yellow [facility] Laboratory - Urinalysison Leukocyte esterase Test strip Ql (U) 2+ [facility] Nitrite Ql (U) Positive [facility] Protein Ql (U) 2+ [facility] No Panel Informationon 12-27 Urine Occult Blood 2+ [place] Basophils Auto (Bld) [#/Vol] on 11-09-2023 Basophils (Bld) [#/Vol] 0.0 10 3/uL 0.0-0.1 [facility] Basophils/100 WBC Auto (Bld) on 11-09-2023 Basophils/100 WBC (Bld) 0.8 % 0.2-2.0 [facility] Eosinophils/100 WBC Auto (Bl d)on 11-09-2023 Eosinophils/100 WBC (Bld) 3.6 % 0.9-7.0 [facility] Erythrocyte distribution wid th Auto (RBC) [Ratio]on 11-09-2023 Erythrocyte distribution width (RBC) [Ratio] 12.3 % 11.0-15.0 [facility] Estimated glomerular filtrat ion rate (GFR) non- Americanon 11-09-2023 GFR/1.73 sq M.predicted among non-blacks MDRD (S/P/Bld) [Vol rate/Area] mL/min/{1.73_m2} >=60 [facility] Globulin Calc (S) [Mass/Vol] on 11-09-2023 Globulin (S) [Mass/Vol] 3.2 g/dL [facility] [facility] Hematocrit Auto (Bld) [Volum e fraction]on 11-09-2023 Hematocrit (Bld) [Volume fraction] 36.2 % 36.0-48.0 [facility] Hemoglobin [Mass/volume] in Bloodon 11-09-2023 Hemoglobin (Bld) [Mass/Vol] 11.9 g/dL 12.0-16.0 [facility] - Chemistry and C hemistry - challengeon 11-09-2023 Albumin [Mass/Vol] 3.7 g/dL 3.4-5.0 [place] ALP [Catalytic activity/Vol] 152 U/L 46-116 [facility] ALT [Catalytic activity/Vol] 20 U/L 14-59 [facility] AST [Catalytic activity/Vol] 15 U/L 15-37 [facility] Bilirubin [Mass/Vol] 0.2 mg/dL 0.2-1.0 [facility] Calcium [Mass/Vol] 9.1 mg/dL 8.5-10.1 [place] Chloride [Moles/Vol] 105 mmol/L 98-107 [facility] CO2 [Moles/Vol] 30.6 mmol/L 21.0-32.0 [facility] Creatinine [Mass/Vol] 0.83 mg/dL 0.55-1.02 [facility] GFR/1.73 sq M.predicted MDRD (S/P/Bld) [Vol rate/Area] mL/min/{1.73_m2} >=60 [facility] Glucose [Mass/Vol] 107 mg/dL 74-106 [place] Potassium [Moles/Vol] 3.4 mmol/L 3.5-5.1 [facility] Protein [Mass/Vol] 6.9 g/dL 6.4-8.2 [place] Sodium [Moles/Vol] 142 mmol/L 136-145 [place] TSH Qn 1.941 m[IU]/L 0.358-3.740 [facility] Urea nitrogen [Mass/Vol] 21.0 mg/dL 7.0-18.0 [facility] Urea nitrogen/Creatinine [Mass ratio] 25.3 mg/mg [facility] - Hematology and Cell countson 11-09-2023 Immature granulocytes/100 WBC (Bld) 0.2 % 0.0-0.5 [facility] Leukocytes [#/volume] correc pool for nucleated erythrocytes in Blood by Automated counon 11-09-2023 WBC corrected for nucl RBC Auto (Bld) [#/Vol] 5.1 10 3/uL 4.0-11.0 [facility] Lymphocytes Auto (Bld) [#/Vo l]on 11-09-2023 Lymphocytes (Bld) [#/Vol] 1.4 10 3/uL 1.2-3.8 [facility] Lymphocytes/100 WBC Auto (Bl d)on 11-09-2023 Lymphocytes/100 WBC (Bld) 27.2 % 20.5-60.0 [facility] MCH Auto (RBC) [Entitic mass ]on 11-09-2023 MCH (RBC) [Entitic mass] 32.5 pg 26.7-34.0 [facility] MCHC Auto (RBC) [Mass/Vol]on 11-09-2023 MCHC (RBC) [Mass/Vol] 32.9 g/dL 29.9-35.2 [facility] MCV Auto (RBC) [Entitic vol] on 11-09-2023 MCV (RBC) [Entitic vol] 98.9 fL 81.0-99.0 [facility] Monocytes Auto (Bld) [#/Vol] on 11-09-2023 Monocytes (Bld) [#/Vol] 0.5 10 3/uL 0.3-0.8 [facility] Monocytes/100 WBC Auto (Bld) on 11-09-2023 Monocytes/100 WBC (Bld) 9.5 % 1.7-12.0 [facility] Neutrophils Auto (Bld) [#/Vo l]on 11-09-2023 Neutrophils (Bld) [#/Vol] 3.0 10 3/uL 1.4-6.5 [facility] Neutrophils/100 WBC Auto (Bl d)on 11-09-2023 Neutrophils/100 WBC (Bld) 58.7 % 43.0-75.0 [facility] No Panel Informationon 11-08 Eosinophils # (Auto) 0.2 10 3/uL 0.0-0.7 [facility] Immature Granulocyte # (Auto) 0.01 10 3/uL 0.00-0.03 [facility] Platelet mean volume Auto (B ld) [Entitic vol]on 11-09-2023 Platelet mean volume (Bld) [Entitic vol] 11.2 fL 9.5-13.5 [facility] Platelets Auto (Bld) [#/Vol] on 11-09-2023 Platelets (Bld) [#/Vol] 336 10 3/uL 150-450 [facility] RBC Auto (Bld) [#/Vol]on RBC (Bld) [#/Vol] 3.66 10 6/uL 4.20-5.40 [facility] Serum or plasma albumin/glob ulin mass ratioon 11-09-2023 Albumin/Globulin [Mass ratio] 1.2 {ratio} [facility] Serum or plasma anion gap de terminationon 11-09-2023 Anion gap [Moles/Vol] 9.8 mmol/L [facility] Laboratory - Chemistry and C hemistry - challengeon 10-14-2023 Bilirubin Ql (U) Negative [facility] Glucose (U) [Mass/Vol] Negative [facility] Ketones Ql (U) Negative [facility] pH (U) 6.5 [pH] [facility] Specific gravity (U) [Rel density] 1.010 [facility] Urobilinogen (U) [Mass/Vol] 0.2 mg/dL [facility] - Specimen inform ationon 10-14-2023 Appearance (U) Clear [facility] Color (U) Yellow [facility] - Urinalysison Leukocyte esterase Test strip Ql (U) Negative [facility] Nitrite Ql (U) Negative [facility] Protein Ql (U) Trace [facility] No Panel Informationon 10-14 Urine Occult Blood Negative [place] Urinalysis - DIPSTICKon 05-23 Appearance (U) cloudy [employer] Other Bilirubin Ql (U) Negative [employer] Other Color (U) yellow [employer] Other Glucose Ql (U) Negative [employer] Other Hemoglobin Ql (U) 6.5 [employer] Other Ketones Ql (U) Negative [employer] Other Leukocyte esterase Test strip Ql (U) large [employer] Other Nitrite Ql (U) Negative [employer] Other pH (U) 5 [pH] [employer] Other Protein Ql (U) 17 [employer] Other Specific gravity (U) [Rel density] 1.020 [employer] Other Urobilinogen (U) [Mass/Vol] Negative [employer] Other Urinalysis - DIPSTICK [employer] Other CBC AUTO DIFFon 08-10-2022 BASO # 0.0 103/ul Normal 0.0-0.1 [facility] Comment on above: Performed By: #### C BC #### [facility] [address] [place] [address] Dr. Bo Brown Basophils/100 WBC (Bld) 0.9 % Normal 0.2-2.0 [facility] Comment on above: Performed By: #### C BC #### [facility] [address] [place] [address] Dr. Bo Brown EO # 0.1 103/ul Normal 0.0-0.7 [facility] Comment on above: Performed By: #### C BC #### [facility] [address] [place] [address] Dr. Bo Brown Eosinophils/100 WBC (Bld) 2.1 % Normal 0.9-7.0 [facility] Comment on above: Performed By: #### C BC #### [facility] [address] [place] [address] Dr. Bo Brown Erythrocyte distribution width (RBC) [Ratio] 12.2 % Normal 11.0-15.0 [facility] Comment on above: Performed By: #### C BC #### [facility] [address] [place] [address] Dr. Bo Brown Hematocrit (Bld) [Volume fraction] 34.1 % Critically low 36.0-48.0 [facility] Comment on above: Performed By: #### C BC #### [facility] [address] [place] [address] Dr. Bo Brown Hemoglobin (Bld) [Mass/Vol] 11.3 g/dL Critically low 12.0-16.0 [facility] Comment on above: Performed By: #### C BC #### [facility] [address] [place] [address] Dr. Bo Brown IG # 0.01 10e3/ul Normal 0.00-0.03 [facility] Comment on above: Performed By: #### C BC #### [facility] [address] [place] [address] Dr. Bo Brown IG % 0.2 % Normal 0.0-0.5 [facility] Comment on above: Performed By: #### C BC #### [facility] [address] [place] [address] Dr. Bo Brown LYMPH # 1.2 103/ul Normal 1.2-3.8 [facility] Comment on above: Performed By: #### C BC #### [facility] [address] [place] [address] Dr. Bo Brown Lymphocytes/100 WBC (Bld) 28.8 % Normal 20.5-60.0 [facility] Comment on above: Performed By: #### C BC #### [facility] [address] [place] [address] Dr. Bo Brown MANUAL DIFF REQ NO Normal [facility] Comment on above: Performed By: #### C BC #### [facility] [address] [place] [address] Dr. Bo Brown MCH (RBC) [Entitic mass] 32.6 pg Normal 26.7-34.0 [facility] Comment on above: Performed By: #### C BC #### [facility] [address] [place] [address] Dr. Bo Brown MCHC (RBC) [Mass/Vol] 33.1 g/dL Normal 29.9-35.2 [facility] Comment on above: Performed By: #### C BC #### [facility] [address] [place] [address] Dr. Bo Brown MCV (RBC) [Entitic vol] 98.3 fL Normal 81.0-99.0 [facility] Comment on above: Performed By: #### C BC #### [facility] [address] [place] [address] Dr. Bo Brown MONO # 0.4 103/ul Normal 0.3-0.8 [facility] Comment on above: Performed By: #### C BC #### [facility] [address] [place] [address] Dr. Bo Brown Monocytes/100 WBC (Bld) 9.7 % Normal 1.7-12.0 [facility] Comment on above: Performed By: #### C BC #### [facility] [address] [place] [address] Dr. Bo Brown NEUT # 2.5 103/ul Normal 1.4-6.5 [facility] Comment on above: Performed By: #### C BC #### [facility] [address] [place] [address] Dr. Bo Brown Neutrophils/100 WBC (Bld) 58.3 % Normal 43.0-75.0 [facility] Comment on above: Performed By: #### C BC #### [facility] [address] [place] [address] Dr. Bo Brown Platelet mean volume (Bld) [Entitic vol] 10.5 fL Normal 9.5-13.5 [facility] Comment on above: Performed By: #### C BC #### [facility] [address] [place] [address] Dr. Bo Brown PLT 294 103/ul Normal 150-450 [facility] Comment on above: Performed By: #### C BC #### [facility] [address] [place] [address] Dr. Bo Brown RBC 3.47 106/ul Critically low 4.20-5.40 [facility] Comment on above: Performed By: #### C BC #### [facility] [address] [place] [address] Dr. Bo Brown WBC 4.2 103/ul Normal 4.0-11.0 [facility] Comment on above: Performed By: #### C BC #### [facility] [address] [place] [address] Dr. Bo Brown IRON AND TIBCon 08-10-2022 % SATURATION 41.4 % Normal [facility] Comment on above: Performed By: #### B 12FOL, FETIBC #### [facility] [address] [place] [address] Dr. Bo Brown Iron [Mass/Vol] 91.0 ug/dL Normal 50.0-170.0 [facility] Comment on above: Performed By: #### B 12FOL, FETIBC #### [facility] [address] [place] [address] Dr. Bo Brown TIBC DIRECT 220.0 ug/dL Critically low 250.0-450.0 [facility] Comment on above: Performed By: #### B 12FOL, FETIBC #### [facility] [address] [place] [address] Dr. Bo Brown VIT B12 AND FOLATEon 022 Cobalamin (Vitamin B12) [Mass/Vol] 987.0 pg/mL Critically high 193.0-986.0 [facility] Comment on above: Performed By: #### B 12FOL, FETIBC #### [facility] [address] [place] [address] Dr. Bo Brown FOLATE 17.70 ng/mL Normal 8.60-58.90 [facility] Comment on above: Performed By: #### B 12FOL, FETIBC #### [facility] [address] [place] [address] Dr. Bo Brown CBC AUTO DIFFon 05-06-2022 BASO # 0.0 103/ul Normal 0.0-0.1 [facility] Comment on above: Performed By: #### C BC #### [facility] [address] [place] [address] Dr. Bo Brown Basophils/100 WBC (Bld) 0.7 % Normal 0.2-2.0 [facility] Comment on above: Performed By: #### C BC #### [facility] [address] [place] [address] Dr. Bo Brown EO # 0.1 103/ul Normal 0.0-0.7 [facility] Comment on above: Performed By: #### C BC #### [facility] [address] [place] [address] Dr. Bo Brown Eosinophils/100 WBC (Bld) 2.6 % Normal 0.9-7.0 [facility] Comment on above: Performed By: #### C BC #### [facility] [address] [place] [address] Dr. Bo Brown Erythrocyte distribution width (RBC) [Ratio] 12.7 % Normal 11.0-15.0 [facility] Comment on above: Performed By: #### C BC #### [facility] [address] [place] [address] Dr. Bo Brown Hematocrit (Bld) [Volume fraction] 35.2 % Critically low 36.0-48.0 [facility] Comment on above: Performed By: #### C BC #### [facility] [address] [place] [address] Dr. Bo Brown Hemoglobin (Bld) [Mass/Vol] 11.6 g/dL Critically low 12.0-16.0 [facility] Comment on above: Performed By: #### C BC #### [facility] [address] [place] [address] Dr. Bo Brown IG # 0.02 10e3/ul Normal 0.00-0.03 [facility] Comment on above: Performed By: #### C BC #### [facility] [address] [place] [address] Dr. Bo Brown IG % 0.5 % Normal 0.0-0.5 [facility] Comment on above: Performed By: #### C BC #### [facility] [address] [place] [address] Dr. Bo Brown LYMPH # 1.1 103/ul Critically low 1.2-3.8 [facility] Comment on above: Performed By: #### C BC #### [facility] [address] [place] [address] Dr. Bo Brown Lymphocytes/100 WBC (Bld) 25.8 % Normal 20.5-60.0 [facility] Comment on above: Performed By: #### C BC #### [facility] [address] [place] [address] Dr. Bo Brown MANUAL DIFF REQ NO Normal [facility] Comment on above: Performed By: #### C BC #### [facility] [address] [place] [address] Dr. Bo Brown MCH (RBC) [Entitic mass] 32.6 pg Normal 26.7-34.0 [facility] Comment on above: Performed By: #### C BC #### [facility] [address] [address] [address] Bo Brown MCHC (RBC) [Mass/Vol] 33.0 g/dL Normal 29.9-35.2 [facility] Comment on above: Performed By: #### C BC #### [facility] [address] [address] [address] Bo Brown MCV (RBC) [Entitic vol] 98.9 fL Normal 81.0-99.0 [facility] Comment on above: Performed By: #### C BC #### [facility] [address] [address] [address] Bo Brown MONO # 0.4 103/ul Normal 0.3-0.8 [facility] Comment on above: Performed By: #### C BC #### [facility] [address] [place] [address] Dr. Bo Brown Monocytes/100 WBC (Bld) 9.5 % Normal 1.7-12.0 [facility] Comment on above: Performed By: #### C BC #### [facility] [address] [place] [address] Dr. Bo Brown NEUT # 2.6 103/ul Normal 1.4-6.5 [facility] Comment on above: Performed By: #### C BC #### [facility] [address] [place] [address] Dr. Bo Brown Neutrophils/100 WBC (Bld) 60.9 % Normal 43.0-75.0 [facility] Comment on above: Performed By: #### C BC #### [facility] [address] [place] [address] Dr. Bo Brown Platelet mean volume (Bld) [Entitic vol] 10.7 fL Normal 9.5-13.5 [facility] Comment on above: Performed By: #### C BC #### [facility] [address] [place] [address] Dr. Bo Brown PLT 284 103/ul Normal 150-450 [facility] Comment on above: Performed By: #### C BC #### [facility] [address] [address] [address] Bo Brown RBC 3.56 106/ul Critically low 4.20-5.40 [facility] Comment on above: Performed By: #### C BC #### [facility] [address] [place] [address] Dr. Bo Brown WBC 4.3 103/ul Normal 4.0-11.0 [facility] Comment on above: Performed By: #### C BC #### [facility] [address] [address] [address] Bo Brown PROF CHEM 8 (BAS METB)on Anion gap [Moles/Vol] 9.7 mmol/L Normal [facility] Comment on above: Performed By: #### B MP #### [facility] [address] [place] [address] Dr. Bo Brown Calcium [Mass/Vol] 8.8 mg/dL Normal 8.5-10.1 [facility] Comment on above: Performed By: #### B MP #### [facility] [address] [place] [address] Dr. Bo Brown Chloride [Moles/Vol] 103 mmol/L Normal 98-107 [facility] Comment on above: Performed By: #### B MP #### [facility] [address] [place] [address] Dr. Bo Brown CO2 [Moles/Vol] 28.9 mmol/L Normal 21.0-32.0 [facility] Comment on above: Performed By: #### B MP #### [facility] [address] [place] [address] Dr. Bo Brown Creatinine [Mass/Vol] 0.69 mg/dL Normal 0.55-1.02 [facility] Comment on above: Performed By: #### B MP #### [facility] [address] [place] [address] Dr. Bo Brown EGFR-AF MALAYSIAN >60 Normal >=60 [facility] Comment on above: Performed By: #### B MP #### [facility] [address] [place] [address] Dr. Bo Brown EGFR-NON AF MALAYSIAN >60 Normal >=60 [facility] Comment on above: Performed By: #### B MP #### [facility] [address] [address] [address] Bo Brown Glucose [Mass/Vol] 111 mg/dL Critically high 74-106 [facility] Comment on above: Performed By: #### B MP #### [facility] [address] [address] [address] Bo Brown Potassium [Moles/Vol] 3.6 mmol/L Normal 3.5-5.1 [facility] Comment on above: Performed By: #### B MP #### [facility] [address] [address] [address] Bo Brown Sodium [Moles/Vol] 138 mmol/L Normal 136-145 [facility] Comment on above: Performed By: #### B MP #### [facility] [address] [address] [address] Bo Brown Urea nitrogen [Mass/Vol] 15.0 mg/dL Normal 7.0-18.0 [facility] Comment on above: Performed By: #### B MP #### [facility] [address] [address] [address] Bo Brown Urea nitrogen/Creatinine [Mass ratio] 21.7 mg/mg Normal [facility] Comment on above: Performed By: #### B MP #### [facility] [address] [address] [address] CHEST WO CONon [...] by: GALA TRIANA Date: 2022-04-07 06:28 Normal [facility] XR CHEST 2 Von 01-06-2022 [...] by: MALCOM MAGANA Date: 2022-01-06 09:15 Normal [facility] Consent for Treatmenton 10-0 Consent for Treatment [id number]:[email or web address] Normal [facility] Coding Summary.on 05-18-2021 Coding Summary. CD:[id number] 2UYv4wDz+PGhlYWQ+P C6KWIKaC96xmHQpmI3 KY3bOEU1YTUXKXQDPA Q3DLV0mnTM8RVrxQ9J ybiAv PktcgVQiKN28QAv1LK L3uXsyMOcybL3nqVVt M9k7LxBiKU41jQ20UJ cqUVInVwK8QfNnxrtp bWFy Y4cxBwNfdKQkUts+PH RhYmxlIHdpZHRoPScx ZZGcShJcmNulPX6rMx 9yZGVyLWNvbGxhcHNl OiBj l7obURCxNVhhAO6byI dfD9DsfTC4DHRqe1t0 Vo16qAK+WQUsQVB3dX iiLAcbj055LsIhz7ta IDM3 rXCjBQlcPPY3F81yp5 O9KDFcQCUwCDX9lLR6 jI4ieXgwhpetB2HfkR NjPkS5VEK1pBUafZ1v bGln yptgyY5gVtt+Q09ESU 4BUUSLCL5OPaz0D0Mw PjwvdHI+GQ32SQWhIJ 30jGHkgBNgq6jvoKv3 JzEw AERfEZI5oWmsVIqep2 PoNSLaN76ypRMij6K4 IGNvbGxhcHNlOyBlbX M7fY4xQXzvcfmle6qt dzsn Nrruo5womr95nZ28N9 9tOCvuCNZeSSD1ZWBe UGBkmBibbs1lkH0yZo 8+YPyzt2uiw7nksXn4 IjIw IWNzjtJzpRbcCRI1t3 TgSh37X3KnqBpek5Bh Usc0qt92qRWsr4C8pK J8GHtvKQIqlU4bQXva ZnQ6 AXPpXjQlyU38fCUvLY wiNw2ptFotpUxsDI9i ZWLeceneLLAmxG5wRC GmyPKzxYrmEB5wQSKy bjtm m749JgBmUAC6TRFuzC LgD7QepG3hRxSsPMDh EXHaF2JobYDjEZzmZ1 24DMutRcK2PHYbbmYd Y2Fs UYUypPbhTpH0j6B0Lw 2Vz0KqiyvvUOX4AVyi NUX6UrD7QaFdPmS7Q3 XrXix9FKNgfKqiOD7q J3Bh MOQivmxrccofjQY9UO DnTINtnT97uCNaJPpk Ry2nw3B3z693RHSkYI HnmY97Gs6xrFvjRPQo dCBU nK7uogscw8jufmtpXx WhEQLmTTr7WMn8SGHh lJinXpTmNVY8SeB5QP O4uVBudA0cmJtuylta dG9w Oyc+U61mzK3uTXX2VX C4rrreZPSlflFjFB51 MC81D6AiRofhxKClfZ U+FPNalzSxnGpyXW2h YmFj l1nzg9VbRYeoW0ZgWJ MiVAacHdx8ONJkDQE9 sMQ7eR7qNNYtFOiks3 L8pCX3Z4VxroReer7g b2xs IJEtYPhqU54yxLHrz0 W3MLJqqBU5ZEGckTnp PmSrmE77Anh+PGNvbG nzt9ExGisox3mdb2ca dGg9 IjMwJSIgdmFsaWduPS C3u2FxGr75S90oQPwv ZHRoPSIxNSUiIHZhbG nejl2fbC4lAl8+PGNv bCB3 dBS0cC5iACEkUrU3QV qvU054QcUbjLIkSebp q0eyt7vqaJw0JtWyBY KgfzJsbKetTHX3z4Cq Lz48 D07cNTcxBNZuXLGnCN AbWDIbfZhonz4vxH2l Ii8+WK1xp6gpfr10iA 48dHI+KECqOOJ2yAzv PSdw NMCudX9wDNyzFyF7IJ CyYiPbcS95nHKqLSoy Eq4pnBkbgRgwLM5qMT Nijaweh470BzAhe6mx IDEw vHMzOQwhJKB1F48gl1 I2VSOxNNOaYOC0jSR3 mY1gwSifniadfOEqjP sgdmVydGljYWwtYWxp Z246 IHRvcDsnPlBhdGllbn DzLkAxDGr1V6GfUpp0 HVCbuIduPE7hcLPeFW itPf0puZlwtNuiJI8y NTBp sivna453RbEuv1ilLI HlfKPdWSahDNH1U75o i6X0OJQhIWZkVXP5qR C0fS1voFjxskrqpLCs dDsg dmVydGljYWwtYWxpZ2 46IHRvcDsnPkJpcnRo DGUnbXQ1JR47FU73dV Shz6I3gHT5Y8QnSSIt bmct qrzjtTB3PTLyTQGulN 84Vl1oiYwnBl2uLEPx RWK0YAPjuVNvK8UxlL 6bXnTlEJXqFMGpM5Iz eHQt DQyxL090IGjtRqK9FY AfmyVnX8SoQWKgeIpg DkZ3b8Y4Wa6VU2G5TY 42WY29pOIwh3O4kCK7 J3Bh JUIxkkjswilyfIW9JE DgFGTiwB69Sv0hkUlu Dg8cFDDeDPS3QAUgjV SxI6SxhA2bSjSgQNYs MDAw T1MveOJgVHlzJ165YK epPmQ0NXJcnvAoY2Ub FWNvzQwuJbZ6g0G2Fb 5YWTr9LC40OJ69mJBl c3R5 vYH0K2YkGWJlaybokh iogZE2BGIiQFUidY64 Wk1ypYapTb9sWIFmGD Y0LUSlnCQsC6KusZ1n OiAj FYOwMPDoT2RweZWlWA byW931EJedIfS1ZJRt jyDjC2OgDBEebJwyPu N9j9Q6Ny2RTJDrIP08 IFR5 zDD7WH72LX75J1BlCo wvdGFibGU+PHRhYmxl IHdpZHRoPScxMDAlJy DacSdaSO3bCn6fFGKv LWNv gBvjyEPpXzAol3gsQS FsXHhxKV6fuGkzZ5Qf yCJ8WSGvm5i6Fc23K9 2wW8ZavEI+PGNvbCB3 aWR0 yC0kFrEdSwE2VQybM6 30VsAfmWNpVrwej4xx q7hotAg2CuQ3XORnya SsqFemKNE6w3VxQe00 Y29s IHdpZHRoPSIxNSUiIH ThbJbgeq0ycG3vLy9+ UYGdmTD7bSQ7vS9pQf LfCoE2FDbzV846QaKw cCIv Usgux1pbv7ikbOf8Sd IwJSIgdmFsaWduPSJ0 o4BiPw80A7OkwFxhd8 InWkc9ay58vPOeh8V8 bGU9 D5YeQFDsxaacvCPesF cpDF4dQIBldhquGMZv tD0vJUToO9t2AjMcHl Q1EAftK6GtpzT6VGYf cHQg AXsmJHC2X09ev5H3FY ZhKZYsHGU3fGP3fL7l bGlnbjogbGVmdDsgdm NjaJokCHuyGQefI505 IHRv tXreOIXdkH2cKISdeI FfnFybSJ9pVLCpcbiw BdsVUu9QHqzaO7WJX3 vCTjWOJP39ZU06rAAe c3R5 kKK5F6CqPFUlypchdj wlkOI0ZNZzKJTazZ34 cGBnQMwnUl0bt2L9m8 55KVWhXZYnmT50Ra5r dDog HUYivUQCuP0jfqpim9 xvcjogIzAwMDAwMDt0 RAb0VDPucBtdEfJjPL H8ImP2GCW3eQEqqH5v bGln ntvvwV0tKrs+MTAvMz EvMTkzOTwvdGQ+PHRk BQD9oXdsVIiwTRVlaC 9yGGCaS4l7IfYbAmR4 MGlu R5HjMWZdcruoHi06wT 6mIhBnUcT0GSfhM2Tz ncM7TAJhcPQgFDmtQB F6J45zx3I9VWGdVHZh MDA7 wDY6eC3voFpjlhtloP VmdDsgdmVydGljYWwt DNxtS190JORquZzmYt slKLgfSKYxUR03OU80 dGQg b8D1kWN2F8RlAVUevz mxcfsddZN8WMBgEBEy sJ17eWPvZNqkEq8mi8 G1l547JAXsXPBrdO54 Zm9u gNfzHZAhmIGJqI6pww jpz1xipzwcQcTdSJNc GVu8JUx8TMJhgQclCs DvQYP9KzI7WKX7gTFw bC1h iUctahhddM6gUuo+Rm KmJZyrRQ55JA03kBDq x4R3fLS2L5LvOUOtux qimtjicQZ1ISWlPDEx aW47 kDLaIZwzTp1xt0L4c6 07MTLyFWDlvP22Mr2k qPleNQRiyDGZhA8odd crk1andhgrPbXvXPHv MDt0 XMr6YKMtbTlwYlFcGW L5LmB8PDP3xWMrlB0t rXwnxihmlG1nFfe+T3 X8mYP9vYHhoLabwNL+ PC90 dc51F1DdHgomXfs0LW ZyJYF5uKX6mJ2nYQFb ZQcjw5W4zKU3S9Hciv Nguy2es6oeNLWrVIbf Y29s lLAoz4K3LSCbaNW3GK LtjWwhKeDebL46Smo+ YKAcvMbgz0GdVjdrs4 eqn7pfbOx1CuAmMUJa dmFs wNywOFM0m3UcLo99J0 9sIHdpZHRoPSIzMCUi LJRqpQlaof4ysJ0sHp 8+IEXwgEV1dQM7eA0u MjAl GhA4MJnjT543RcRonF GzOpvgw1hcz4tazUl5 IjIwJSIgdmFsaWduPS Q5g2UvOp53Z1AzrVlu b3Vw Qtu7sp05kBWtw9G1kR J2L7PnPIIirquupWZk kWbePA7nPSAevzthZI XwhU1cSJMxB4a9GvGa LjA1 HXizZ7AbveY4EMVppT HsDXMowDFLrA5lyain x4odwvbqXcCmDUIcDW a3LVk9TETtlIkzNgVk ZWZ0 XjX2PVN7pJUtdE1qdK lhtobgbC3aDfh+UGh5 a2xidQCzSJ2joCM2OC 75OF47yXAhb0I4oYF9 J3Bh TMXtthvnytytrYG2SR JaQYEndL59Em6kxZnf Tz6fEWQnAUM1BZWwtA CiJ6OfsL5qJjYlYQIu MDAw C7KweTUuRYzlX640LO lpOqK0ZORzonVqC4Rh AZRziCfhSrJ9u1D0Bm 8EZW63PE54VR40oRDl c3R5 lJB5L3CoFRFdtzhuxa ibaDE8TLFwRWEslP96 Gs5mlEwiWq0kUSGuGF W6FJOyiQVmK9DgiM4r OiAj QRZeIKKbQ8IdrVVdEE qlR922HQztRwC5LTIw kjItA3NhBXPonLgjFh L8v8W3Hd4SIx28LW50 ZD48 rSFhi5U8hPM3X8DrQD BwfeuxtwjmnGH0OORt XVTgaL10Sd4ppOdlHg 6eOKXgNYO9VKSzpPCf O2Nv lD9fQkOwLHLgDFZxB1 VmpXIgAQsxO149LFhs BgD9PNVdzzIvT2HnBR SsmPveIyB7k1W8Rd1F YXll jpn3M5ZjZbjbhUZ+PC 67VHAhAH74oXEweWBr o0kzjUf3EhIwDEHoBK H2pRdjMOqvl3NbMFFr Y29s bGFw (more content not included)... [facility] Coding Summary. [id number]+PGhlYWQ+P N8FBMYzD88scKMnxQ1 AO3tQYS6DJSHFBSOQU D4LKP7uwHK0IVbzK6I ybiAv MrypdNAmGP24FSk5YU H9fCiwHEadeL6szVYt S9e8LwMeCD44cR81VT xxKXFuErP9MkPqqjwk bWFy D4qpLuXduEYhSfi+PH RhYmxlIHdpZHRoPScx WUXvGpOynUkpWV7wVg 9yZGVyLWNvbGxhcHNl OiBj k9zoCRYoLNzcFB7asE vsC0FfaFD5XKHdy7o9 Uc10fLO+MKVyAUY0jL sgLApht752TzIck6gl IDM3 uSVuFHbnNTJ2O79ia3 W5ZZJdPXNwGWB7nNM8 wI9mvMmonwkoX9DdzW LdZhY1DRL5hZDqfH5c bGln ihzezU0zVrw+Q09ESU 5OSIMKDC3JEut1N7Pv PjwvdHI+IH20SFDjTG 46sCRmmTEpy3txdXn1 JzEw LNKbGCU1vPwtTDdml5 HvYAMrP31sbYAwf4U0 IGNvbGxhcHNlOyBlbX F8fK9aYGwncrvyp7cz dzsn Mtwiy3arll79yW49R8 7cNDvjOYXnUVA4ZOKx WYTenTrbfa4lvM5mCs 8+BGuyf8gle5elrQj1 IjIw CGNcswOkdDnrJHX5i1 MuSi76Y8WhwBlin1Bo Kae9cx20cNMqi6A1gP C2HYsyGIJcsS0aHLbj ZnQ6 XJFiMtTwlB03uEMqTG yqFf3dnApyyUpfMO3s ADScvdnaZCPvvX3hMH LuxAYipOzbMH4xZGGg bjtm v645FkVwFCJ5ZOXblX OjU4FxpT1yYgYcMYOn BYPuH5ZqkACxFGauY7 90FVacXzG7PMXxncGx Y2Fs IPXspMpmReJ4t7Q8Mp 9Av6RbfidkYIK9RWyp RAF5LpBdKyVyCfV3K0 DwOxn3BYMwwCaiMV7l J3Bh HFOrgipxpovszLQ4YR CsZFOirP78zGTkYLcr Oh8za6U4u230CDTuRN JqiF58Rr2njZsfKCZn dCBU lR9modlpe7pqdpjkUb TsWRXbRIj9AUs0PLUg zUieUhBgVGW4LuO9HD V3sKZviT2jwBwjqvtm dG9w Oyc+P67srR4cOXW9QT I1hdkmLALmpeEcKE43 SG27B4XlEvwbzLWfzT U+AOFkvpTyfTriYA8p YmFj i1fsy3AeRNfhU2JdCD RzEZshIvu1TFAlLCJ5 aYC2fF2pAFYeLBnno8 A3iGP1O6GhtfMggz0p b2xs YWSnVHydB14jyFAyx4 V2EDIsqSU5PFPyhYyc KpGogK38Bcn+PGNvbG edb2RuEfwjz3gei6of dGg9 IjMwJSIgdmFsaWduPS J0q1NmHv61Z19jFDiu ZHRoPSIxNSUiIHZhbG mwrn5uhJ3wVq9+PGNv bCB3 gKY1aU9qLMFrYdZ7EP jgR701DnNwvRPyQnjk v1oqs1fpuSn2ZcAoMN ZcmdOejXarPRX0e2Xn Lz48 I89gQTbbDFDtNBNyES ZxAXGxuHfnlk0qgE5y Ii8+OU4oo5yovn72hX 48dHI+GRVdZOL3sAjj PSdw MMCkgY2eEPylPyY3VU QdFxBxkV06yGAtILcu Xf5wcYsbuCdrXS0aFG Nszmwta956XhWbl6fv IDEw wDZdLGuvVGV3Z10ee2 T3ULBjDWChDTW5gVV8 jL2axHkwfkeeeBXulG sgdmVydGljYWwtYWxp Z246 IHRvcDsnPlBhdGllbn EzItCiCDv4V4FkMwj9 UCEcgTooJB6saMIkPE nzFs9raMrmbDybAL7s NTBp mqbyt373TsIvh2tzYM IezECtNLgiLOI7I54g e9I5WGHuKDBuHVL2oR R9eJ6tnDsrnotfaEGq dDsg dmVydGljYWwtYWxpZ2 46IHRvcDsnPkJpcnRo ACOudDK1MC25IK36oK Qtd5S0aZW9J7RpYIPr bmct wwsxbEA8EBTnNUObbD 53Hw2tqYbuUj5sNXFy NMM2VFOzfFMtF5PjfS 9qFuHsVDVjYNQgC4Gg eHQt HRwpM452HMdfJtV5VL HgqgFzW7CgOPUbsGag PhC2o0Z3Uc0JO3M5RI 34VM24pITji6L1qZM6 J3Bh FIPwhcramgqzdZV7AR QrFXGjjG27Jw8yuOud Mo2aGLBdPPD9KLAslZ HlO3LnbM8kXsVvWMAc MDAw D4XhrKJoBWydJ620CP syAcX4HKLawdGqT4Wt OMNrgBkuAsD0u9T6Vv 7MNHh9GC96UA13vFEj c3R5 sMJ2N6NjXZVlfqblnm ukeEC4UXXtFALvjC90 Ic3wuNivRd8lYQDmRT E7CZZlrWWsK3FmbG7u OiAj RPEtOIKpG7FnoWNkMW fkR981JLttIyQ3OHLx xuQeL8UjEXDozXzhNu G9h7M5Dx9FGEYaKA09 IFR5 eSS1PC63EQ90I5FaDi wvdGFibGU+PHRhYmxl IHdpZHRoPScxMDAlJy XczAkhWN1wOz5iYMYg LWNv eDgymTTyBeXbm8smZP CsRPjtRU0kkQqoE6Gx jTZ1GDMqj5j6Qy67V0 1vN2FdbYE+PGNvbCB3 aWR0 pI4iCtFeNxU6SMlbX9 25VlLmmPPvRkxnt2wl u9vitJl4JjO7GYNfyw SjgJmuKMF4i9ZwOh19 Y29s IHdpZHRoPSIxNSUiIH ZfbZetoo9ryM8jKm6+ XDPbgIU5kRN6xT8xAz TcJqI5TNwkD300QpAb cCIv Dleek5ach5xrvPj7Hr IwJSIgdmFsaWduPSJ0 t1DpSo52W6LhuIhkt0 FmNbj1fj62iKFsp5H7 bGU9 C6YzIHKdrvfomKCgyJ yfSI8hECHinsuuLWHp nL0uPLMjW6c3CgNjZb K9BUtkF9EijaJ0JGVu cHQg WXlfAGW6L61bq5Y5FQ IeHYGuHKH4bXS9hA1z bGlnbjogbGVmdDsgdm NjmEvkQFbeXBijX494 IHRv gLcnEFYfmH4vUCBlyS QgdCxwTF0hUDAhphxh HbsMUu7EBibjV3HGD7 rWWdPWXE15PL95xQMh c3R5 tJB5G5XyDEXolghffc pdfIG8CTJmCCFhtJ16 jIThEFlnUq8ld6P9c6 80ARClEGJgqO83Ht3t dDog DQEgvTXTaC9hwbnyb0 xvcjogIzAwMDAwMDt0 ZPy0XIBmrKieXiEaLS Q0DzR0EYX3sULdjM3p bGln wdeloD5mGpe+MTAvMz EvMTkzOTwvdGQ+PHRk TRM0bApfWVoaFKPkwY 9eLLCvA4f9SwMdAkI3 MGlu H2VpYOAuscjbUx20pG 6eHtAoQlP1DQoqI2Fq tpP7OERfoYCnUJwoXX P7O58wz4Z2WWDhAFKe MDA7 yPY3pH7wxGivhscyoX VmdDsgdmVydGljYWwt ITodU794HQEnnFnsTq jpVEwaFRFmND77KS29 dGQg h7R2jTS8H3MeATDchr ckcrpztGF3HMXySMEy wI18nAQoFBwxUf7xo5 V8o660SELbAVWxwZ87 Zm9u aHbyHUQucPDNnX6cgj rpf1lbbondBqLqERTz LNr7LQo3HGHvtHqlCg SgTOV6MfG1FSV3fPRd bC1h yGsgjivsnU8fOua+Rm WaPUoqXT92WF69rREv r1D5xHL1W2BmCKUebt ijahoesMS7ZNSiYAFs aW47 iWYpQTzjZp3js5F5b0 52OYZrFDTloJ44Ea5f hBjrTCBriZUYyQ6imj vwk5fkfwngGoBcNHAa MDt0 CRq1GHKonMbyYyTqWL Y4BfS2WZJ9rQMxmL5g xIlkheyzkD6uHaf+T3 I2nFL4hQPbiKlgdQH+ PC90 tx97I2KkNwfiXvz9XV BfRMK8kDR9vH2pQWFl YRqkr7I5zIG1Y4Nuyt Ijny2zz8zlFTTgEGhz Y29s uGIcw5W6ZGEzdTX2VR MupTlbWdAueX86Aah+ QGGalYuwt9MsIedak2 bwv0ttrDs7WvHrFIMr dmFs vDmlGQC1n1ZaUi18V9 9sIHdpZHRoPSIzMCUi YFDeyEmczh6rmJ3oHf 8+JOMqcAR0cBS8yR1v MjAl AeW5TKuxZ414IwKxxP RsAzjpl6nyr7nhrOx9 IjIwJSIgdmFsaWduPS A3x7IwOr01S7WqrPqf b3Vw Rdr9xp42iUPvt4Z5dY X3H8SxLXAplkobqLEc bCagGN3bPSUgimuvLA BfkO0xOINeW8p1VnOn LjA1 MKinN7LdxfK1TTKbeR IpNYXqpDUWxH8gcute h1bhladyUqOiPVHoDO v3TGo3XPFjaAonOxCs ZWZ0 UgR6SCR7wIQcsG0tlE crnwrsyY6kUzp+UGh5 y1wqmYUoNV8rsEH8BF 05WC66kFKex7M5yAU1 J3Bh RFNpbmwpleomvQF3AQ PxFIYcxE53Ja4rdHrz Ym3gAKWpWKZ2BBLvzS ZsP1KwqG3qMuIuZSKn MDAw J0KkbPKqNThrB452BU wvYmA0ECDjkzRcE3Qj ATVpvYooZhV9l0Y6Mc 9SJP79WY36QB34yAPq c3R5 mYU2C5EsUITtwvidxa bbbBJ4WHQmCSJvyI13 Nq5lbEjdPt1aDBVkXF B5HLZlaOWtO8CpfI9l OiAj XTEjMUDeI9TfxXHfMA ebR159PPawJzE1NDKw qmHqE0UiHSOjiXyeFg F2p1F8Bf2SRf26IX71 ZD48 uQUkz7E0eKI9F9GjRR NisygniqsgyTJ0QAWs GBMjiE63Af6oaNcnPr 2bXXYuNVP8VRUypDPf O2Nv sS8pBmUdNHZeLOVuN8 ZcpERmOTymH441MIyp GmE1UWZpykTmK1JtWJ UjbGklAuH8f2E1Kf4I YXll fzy3A0OcKgpcuUZ+PC 32ANXfHD28qQNhcZCj o8fouFz5PtGlGFGyKK Z5gKwsUWkxl9PvEASn Y29s bGFw (more content not included)... Normal [facility] Consent for Treatmenton 04-23 Consent for Treatment [id number]:127 Normal [facility] Heart and Vascular Office/Cl inic Noteon 05-11-2021 Heart and Vascular Office/Clinic Note History of Present Illness Lola Andino is an 80 year old female without significant cardiac history. She [place] [facility] [place] with complaints [...] She is going to go to a specialty foods cook in the next week or so to [...] SINHA, Tristan Ashley 04/30/2021 16:28 EDT Normal [facility] Comment on above: Result Comment: Elec tronically Signed By: Sawyer SINHA, Nico Long.adwoa\Date and Time Signed: 05/11/21 11:15 EDT Stress EKG Tracingson 2020 Stress EKG Tracings [id number]:127 Normal [facility] NM Myocardial Spect Rest/Str ess 1 [...] Stress Dose (mCi Tc99M Cardiolite): 29.9 Normal [facility] Coding Summary.on 04-23-2021 Coding Summary. CD:[id number] 4ZSu0xSh+PGhlYWQ+P R9XRQYqY25qfBXqhT6 LL5lZLJ2ZWXYKOEQRE P6CPF2nbEE3UNgfR0C ybiAv KgumgJSsIS40TFn1BW F2qVmoRXuhkG1spUYy E5v9XaHdJQ72kX86SA bvESIdZmV2DqSbhvtj bWFy P2ddHwKleJFhKcr+PH RhYmxlIHdpZHRoPScx NIGfOiHeaPkcJO0qVv 9yZGVyLWNvbGxhcHNl OiBj l8jzXDZgOIucLK9fbV hxD8UctOC1FEUse3d8 Pb86sDG+TRWeYKT8bV owFWqhv327TdMuz3xi IDM3 wUZuPXeyGLX4V63qf8 K5LZYtKKAnBLG3tBB8 dG8pxPkburujL9XwbR ZeKwT9KYK2nVEjaS8k bGln isfoeI6sFqb+Q09ESU 9DMCACOA8CCjb0I7Fk PjwvdHI+SO42TZCbXA 61wZMcoVNdh6djpSz9 JzEw LPUcVYC2xHyzOGbfr5 SpDTAvQ47iyYXkz6I4 IGNvbGxhcHNlOyBlbX C2lB2dUIdeprbkm9hy dzsn Dclyp2ghse25lO59G8 6wGPvpLZNvDPS0LNIs HCUhuPblcu6mhP6uZs 8+CSgev9weo3sjoEh9 IjIw UIMchePqvLgoQBA9o4 QmPy42M0EttWskh8Bj Yqe7jg13dXAgc7C1aH S2BGuyHXHyaU4dXSyt ZnQ6 NGQvNhLikO93kNHtUS isWx3vsAhauMspYQ5n LVUkgsydWBJegN5qBN ZybCFkiFwyGJ6qVHSx bjtm g595CbDePUY5TMLdoU YrY4PoyS0oEwQsMFNa LHKoG8XnlTTdPEkiU3 54RKkpAfM8OWNfanEq Y2Fs QWIqvHqnKuW0e9N1Ic 9Ey5PasrquXYJ3QKmw NSM2GcUxGuZtEiA0Y6 FaCpv6HDFojHjfAM0a J3Bh IEWcogvionvrcFS7NA JmAJErwW93iNAbRKow Cj3eh8J5f028BQByYX LiuI82Rz8hiUtfJUDp dCBU lA9imfdmn5osdjkjSz QtPIFfSNe0DLj2UYSp rBcuYhQvSRO0FwO5RI V3gOEwiI3miGcggafd dG9w Oyc+N54vyX1tDRL8ZC I4upaqMENytdOwWW47 BH60H2MsCdptkINeiQ U+TGOehtNpgWbbPO5b YmFj u5rpa3PqTBeuC9AdRO WtNUinCrj1KWYcIBN4 qWT8tU7kAQUxQZlqf2 Y8gZX5B6FvudXvla2b b2xs KVDzPGgzG56zjNGil3 B9PUWveZB1VBHteRsr JzVonZ75Tgu+PGNvbG xiy0YkBmjxk1nxv4cl dGg9 IjMwJSIgdmFsaWduPS P8f2WhXz81P25pOPgt ZHRoPSIxNSUiIHZhbG sxli0ruN2uSt8+PGNv bCB3 cMF0vP1vLMNsEsI9IT vbH858KxWjiQBjBohu l2lcd0utsYi6PmDbIB KnyuBwfIgrULG4g8Wu Lz48 Y73lOWhxNDHhRIKtFD KvFYNctYntck0nbV1h Ii8+HQ5mw3hele91mB 48dHI+SDZbCNT0uAeb PSdw LTXwzZ8rWUngLfB7DF SaIyVlrO82aDHkZQjd Ht7xuUdpvCnqQC0dUN Gznmrar332LnUct5fh IDEw vJJgRMswATX5R69wt5 B2IKRlAETdJAB4wJY6 sE3qtBauhrqywGSspQ sgdmVydGljYWwtYWxp Z246 IHRvcDsnPlBhdGllbn NlXdAiWSa2M1WnJvn8 VAOgtTqjUE4vnWLrNU vtHz1prOmdeOxlKM1t NTBp owpms953EnVxg4tzZF HruTVfBHetDYA5O11v n3C9XVGqBDTbVDR4xA F7wN8jeLauromrlZCx dDsg dmVydGljYWwtYWxpZ2 46IHRvcDsnPkJpcnRo QYOhfIN6FD83QW16pG Xyx3N0hOO2S8CfACRm bmct wzxmoKM5MAExQJYipD 77Ob0tnIfdXj9eEJAn ATQ5DKIriQYkH1MgwP 4yIsXaWPHrAVAmR8Qe eHQt YPqvN161XNglYgH7BP JgxrZyJ7OlHGOdmWeb AfW5g1Q1Ik0DF3X7JJ 39OX11bUJcd1B1aHL9 J3Bh KIAjnnonbmlyuZH8YZ DoTYObnQ72Rn3fcXtj As3lXCEdQHD5CLHitC YsP5TzvG1gEuIbUCBm MDAw Q0PidYNtNDqdQ545CW dcOrV9XBJkdwKwB3Pf TIBeaMozYxU3i5Z5Yb 5PXSu3XY09PJ02yBHf c3R5 yLX8S9BgUSZggrlsdy nlmYH4DDEuPVUaxD09 Lr2rtAwzCx0rEBVxIR L1KNJkdLMfY7MgpF5z OiAj VIEyTJCrJ7WmtVHsNP hiK277FVjoEeQ9IWPb kvIdD7RgYQQbvIkdOs V2n4G1Wi2SFXBdPX36 IFR5 kRY5NJ41OC17G1XeOe wvdGFibGU+PHRhYmxl IHdpZHRoPScxMDAlJy CuhUekCA2tNi1jFIBd LWNv uZxmjVYnVuNfj2viGI TqVVspXG9nqJskC0Cw dXT9CLHrr9d0Dz03Y6 7yM1ChlOZ+PGNvbCB3 aWR0 dO6gPhTrUvX0GKoxU8 10CyIeyKItYnijr7bw t0psnQt1ArT4HHCsfa QpnZeoUKJ5s5XrTs55 Y29s IHdpZHRoPSIxNSUiIH ZnuLlwxg9gwL3hOh2+ HHBfgGC5tPA8hV7yCz WlNzL4TBfyN380BaRq cCIv Wawpo2qda4tisLq3Sh IwJSIgdmFsaWduPSJ0 x2OmSe69V8XvqGrky6 AjEfx4ds25aOApz8R7 bGU9 A2DsAIQggsilaPLusT cwMZ8oNGOrvzvbOWQn wD5pSDQjF1q9ZaGjVm A5DQxiU3BucvU5IGVb cHQg RPfkQYB3C30pp5K9VS KeHZRoCJT9qAY8oJ0s bGlnbjogbGVmdDsgdm PmwQhdJIbcAZmgL046 IHRv aJyeTIRsxF7mDDKbsK PpsJqnWT8qLTQmmtkb OeaHQg8QFjckE6QFV8 vNToMDSM82WY09iVSj c3R5 qTU7J3ClCRTjsxiozp sfmHE2LUAxTHUezR20 iVIzFCqkRj2mu8C8q6 95UEGxOYGmbY35Ro3j dDog ZYFvgMBLgB8vztqwy1 xvcjogIzAwMDAwMDt0 IZq4YCQlwXhmHdLyGX N1VhQ3HAK4tGNnsS9h bGln jsxkpH6tBre+MTAvMz EvMTkzOTwvdGQ+PHRk FDX2uLozTSjqHTXcgE 2nCWQfV7t5ZnYcSsV6 MGlu S8NtJRTgldhgVa49bF 0tXiGzNbN0MMnoO8Ep yuO8NNFzhYBxCCrzSQ S1Z09vt7L2PNQrFJWg MDA7 wGM0aC1lhLfhwmrfcK VmdDsgdmVydGljYWwt QGzrY335AWLfpMwgEw rsFCyfMOBtPH88DL75 dGQg k2H2lQS3V0WhPLUoou wlxydciJM5CZIxUCZo aP34gMCdVZfgHn6ym5 M5m436ZDJqNJNuwW67 Zm9u nXgnQHXfxGNNkE4ecs gbq9kkuareBwCvAPIs YYq3MIj8TIVumIcuWw JnAVO7DnQ6VQH2jGCz bC1h iWqpghiqoI7gSid+Rm IxPNiaZU67NH98zAAx m2Q5sIT2I0HxTDQsgl uinqkwcLQ8RHUcPJCi aW47 xUZuCUlbDg9td9V0i9 05ZIQkIYZpwX01Cp9b xLdeLOEilBRSzD7zoq prb9dxcmghBzFrBYKx MDt0 YAv2BWLozKqzOcQjVX G2ZpB9XDD0eZBbxR2k pKgkwpfubT9nBqm+T2 CoHRS9NSDiq433P2Rk Pjwv dHI+VE09BYFcOV03jZ SlcUQpw3dxoXo4QcRu TGBiMSI5aPndDBymy7 AyTLAqL90omHKvs1P0 IGNv fLnyhVQqGiDkmZQ7sU 6aVLfpxukck8fnolij Cmewo9ruhm20pY89E6 9sIHdpZHRoPSIzMCUi IHZh bAdoce9vkL5xCq8+PG ZeyQB6gRE0iA6bMbAu DaF2PZruI505VsJzdH VdJbkrx9jtp5nwsUy5 IjIw RQBxljTqqSxoYKE9z4 AnWk17P34yHRfcJOCt PSIyMCUiIHZhbGlnbj 5xfH1tNv3+RY8ji6mt cm91 zD10qER+MWGqADF0iS shVQtpKSKwqS0pNOmy WeL8JMPnGfYbnA29oX ZiEAmcHd7uwViejNfm MC4w WICxibdif912JkBkl5 xkIDEwcHQgVGltZXM7 Y36tr6M9CEDjDNZmAN Q6jEP3tF8hxUxbmvbh bGVm dDsgdmVydGljYWwtYW imG344YVKleLszCpSt hCCiG2xaiyQAKA5vTy wvdGQ+LUDrKJL4mTlb PSdw KJUbnC1kTVRfR5e8Kx TzIfF2USuvX0SsvsC5 IGJvbGQgMTBwdCBUaW 3bymmie9bwlvipZzWw MDAw GXs0SQg5RKRtpZxqPv YvHMQ7TvW2WEQ3kHZo iB8eoKwyutvrsN5wVr c+RklOOjwvdGQ+PHRk IHN0 uYjnLWpxWEPzoS0yQT NsZ9z7YoDtPfD3CPzz M3HgttO2HUZpgLDfLK RhjIKYlK6wqqlpu8ht cjog HcUyKSVdPNd7DOb1JO WqnGyyBbIyTPW0BxW0 QKY0bIVsyM8bsQovgt qypF4vNpy+TVJOOjwv dGQ+ QIQzSGN8fBosDIqkXE OlnI7tAHIfG3i2KcDv TsO5DPckD9LvwfQ2CZ LbsEIyZNDorZNFwH1d cztj f0liviouNfTkMUQhBX x5WZb3LYUzpXmeXaNc SWP1AtD5WNP3rRYuvB 5rzRfbubxpeB5tGlx+ UGF5 UCC2NL82YK64X8YaVh wvdGFibGU+PHRhYmxl IHdpZHRoPScxMDAlJy PhpXakTR4nYv8uQDKz LWNv bGxh (more content not included)... Normal [facility] Interdisciplinary Note - Eric e Manageron 04-23-2021 Interdisciplinary Note - Crossing Gateman ED: [facility] H/P: Susanne Profit: partial PIS (OBS/IN): OBS 04/19/20211920, TF: 04/19 1850 Chgs: D/C: VTE: MCG: +OBS/CP, -IP/CP Tele-yes ICU: <2mn-yes Insurance: [facility] PAT (tests): no imaging at this time Readmit: no MM: OBS: ED: [facility] H/P: Silviayoselin Profit: done PIS (OBS/IN): OBS 04/19/20211920, TF: 04/19 1850 Chgs: done D/C: done VTE: na MCG: +OBS/CP, -IP/CP Tele-yes ICU: na <2mn-yes Insurance: [facility] PAT (tests): no imaging at this time Readmit: no MM: done OBS: done Normal [facility] Comment on above: Result Comment: Elec tronically Signed By: Scott LEZAMA, Avani Ventura\.br\Date and Time Signed: 04/23/21 15:59 EDT BMPon 04-20-2021 Anion gap [Moles/Vol] 15 mmol/L Normal 6-16 [facility] Comment on above: Performed By: #### 2 [id number], [id number] #### [facility] [address] [place] [address] Calcium [Mass/Vol] 9.2 mg/dL Normal 8.9-11.1 [facility] Comment on above: Performed By: #### 2 [id number], [id number] #### [facility] [address] [place] [address] Chloride [Moles/Vol] 106 mmol/L Normal 101-111 [facility] Comment on above: Performed By: #### 2 [id number], [id number] #### [facility] [address] [place] [address] CO2 [Moles/Vol] 25 mmol/L Normal 21-31 [facility] Comment on above: Performed By: #### 2 [id number], [id number] #### [facility] [address] [place] [address] Creatinine [Mass/Vol] 0.6 mg/dL Normal 0.5-1.3 [facility] Comment on above: Performed By: #### 2 [id number], [id number] #### [facility] [address] [place] [address] Glucose [Mass/Vol] 124 mg/dL Normal 55-199 [facility] Comment on above: Result Comment: If t his glucose result represents a fasting glucose, interpretation should refer to the following reference range: 55-99 mg/dL Performed By: #### 2 [id number], [id number] #### [facility] [address] [place] [address] Potassium [Moles/Vol] 3.7 mmol/L Normal 3.5-5.3 [facility] Comment on above: Performed By: #### 2 [id number], [id number] #### [facility] [address] [place] [address] Sodium [Moles/Vol] 142 mmol/L Normal 135-145 [facility] Comment on above: Performed By: #### 2 [id number], [id number] #### [facility] [address] [place] [address] Urea nitrogen [Mass/Vol] 15 mg/dL Normal 5-21 [facility] Comment on above: Performed By: #### 2 [id number], [id number] #### [facility] [address] [place] [address] Urea nitrogen/Creatinine [Mass ratio] 25 No Units High 10-20 [facility] Comment on above: Performed By: #### 2 [id number], [id number] #### [facility] [address] [place] [address] Cardiology Progress Noteon 0 04-20-2021 Cardiology Progress Note Cardiology Consult Received- full note to follow Reason for consult- Chest Pain Lola Andino is an 80 year old female without significant cardiac history. She [place] [facility] [place] with complaints [...] seen and examined with Dr. Shin. Normal [facility] Comment on above: Result Comment: Elec [...] no weakness Skin: no rash, no lesions, nobruising/petechi ae ENMT: no sore throat, no congestion, no [...] Psychiatric: no sleeping problems, no irritability, no anxiety/depression . Heme/Lymph: no bleeding tendency, no bruising tendency Allergy/Immunologi c: no recurrent infections, no impaired immunity Additional [...] 2. Essential (primary) hypertension, (I10: Essential (primary) hypertension)Hyper tension 3. DVT prophylaxis, (Z29.9: Encounter for prophylactic measures, unspecified)Encoun ter for prophylactic measures, unspecified Problem List/Past Medical [...] History Heart failure: Father and Brother. Normal [facility] Comment on above: Result Comment: Elec tronically Signed By: Kip SINHA, Tristan Ashley\.br\Date and Time Signed: 04/20/21 16:31 EDT Discharge Instructionson Discharge Instructions [id number]:127 Normal [facility] Inpatient Clinical Summaryon 04-20-2021 Inpatient Clinical Summary [place] [id number] Clinical Summary Person Information: Name: LOLA ANDINO Age: 80 Years : 1940 Sex: Female PCP: LG OVIEDO DO Marital Status: Unknown Race: White Ethnicity: Non- or Language: Monegasque Visit Id: Visit Reason: Shortness of breath; Chest pain; SOB, CHEST PAIN Speciality: Acuity: Enc Type: Observation Med Service: Medical Arrival: 04/19/2021 14:36:15 Discharge: 04/20/2021 12:33:00 Dispo Type: Home (Routine DC) Address: [address] [place] [address] [phone] Provider Notes: Diagnosis: 1:Chest pain; 2:Hypertension; 3:DVT prophylaxis Problems No Problems Documented Smoking Status: Never Smoker Functional Status: Sensory Deficits: History of Falls: Mobility Assistance Prior to Admission: ADLs: Independent Current Level of Assistance for Self-Care/Mobility : Cognitive Status: Oriented x 3 Allergies penicillin [...] Follow up: With: Address: When: Franklin Sousa [address] [place] [address] [phone] Business (1) Within 1 to 2 weeks Comments: follow up for pulmonary nodule With: Address: When: Tristan Shin [address] [place], [place] [phone] Business (1) Within 1 week Comments: Call for followup appointment With: Address: When: LG OVIEDO [address] [place] [phone] Business (1) 04/24/2021 3:00 PM Patient Education Information: Hypertension, Adult lisinopril Normal [facility] Inpatient Patient Summaryon 04-20-2021 Inpatient Patient Summary [place] [id number] Patient Discharge Instructions PERSON INFORMATION Name: LOLA [...] Follow up: With: Address: When: Franklin Sousa [address] [place] [address] [phone] [facility] () Within 1 to 2 weeks Comments: follow up for pulmonary nodule With: Address: When: Tristan Shin [address] [place] [address] [facility] (1) Within 1 week Comments: Call for followup appointment With: Address: When: LG OVIEDO [address] [place] [address] Business (1) 04/24/2021 3:00 PM In the event that this physician does not participate in your insurance network, please consult with your insurance company to find a nearby participating provider. Comment: SINA Green CAROLYN A, have received the attached patient education materials/instruct ions and have verbalized understanding: Patient Signature Date [...] of breath. (more content not included)... Normal [facility] Interdisciplinary Note - Eric e Manageron 04-20-2021 Interdisciplinary Note - Crossing Gateman Pt is awake and alert in bed, [...] per nursing. Anticipate DC home today 04/20. [facility] Comment on above: Result Comment: Elec tronically Signed By: Miguel LEZAMA, Yuli\.adwoa\Date and Time Signed: 04/20/21 10:09 EDT Interdisciplinary Note - Soc ial Workeron 04-20-2021 Interdisciplinary Note - Wire Bound Box Machine Operator Computer generated consult for advanced directives received. This SW spoke with the patient who states that she already has HCPOA and LW completed. This SW requested a copy when she or family is able to bring in so that it can be scanned into her EMR. Patient is very appreciative for checking with her. SW will remain available. [facility] Message from Medicareon 03-24 Message from Medicare [id number]:127 [facility] Monitor Recordon 04-20-2021 Monitor Record [id number]:127 [facility] Monitor Record [id number]:127 [facility] Pre-Certification Formon Pre-Certification Form [id number]:127 Normal [facility] Troponin 9 Hr.on 04-20-2021 Troponin I.cardiac [Mass/Vol] 17.60 pg/mL Normal 10.10-27.10 [facility] Comment on above: Result Comment: The 95% CI (Confidence Interval) PPV (Positive Predictive Value) for myocardial infarction in females is 38 pg/mL, in males 51 pg/mL. The results should be used in conjunction with clinical conditions of myocardial infarction. (Access High Sensitivity Troponin I Instructions For Use, [email or web address], March 2018) Performed By: #### 2 [id number], [id number] #### [facility] [address] [place] [address] UA With Cult Reflexon 2020 Bacteria LM Ql (Urine sed) TRACE Normal Trace [facility] Comment on above: Performed By: #### 2 [id number], [id number] #### [facility] [address] [place] [address] Bilirubin Ql (U) Negative Normal Negative [facility] Comment on above: Performed By: #### 2 798094, [id number] #### [facility] [address] [place] [address] Clarity (U) SL CLOUDY Invalid Interpretation Code [facility] Comment on above: Performed By: #### 2 247205, [id number] #### [facility] [address] [place] [address] Color (U) YELLOW Normal Yellow [facility] Comment on above: Performed By: #### 2 781887, [id number] #### [facility] [address] [place] [address] Epithelial cells.squamous LM.HPF (Urine sed) [#/Area] 0-2 Normal 0-2 [facility] Comment on above: Performed By: #### 2 160812, [id number] #### [facility] [address] [place] [address] Glucose Test strip (U) [Mass/Vol] Negative Normal Negative [facility] Comment on above: Performed By: #### 2 863979, [id number] #### [facility] [address] [place] [address] Hemoglobin Ql (U) TRACE Abnormal Negative [facility] Comment on above: Performed By: #### 2 931466, [id number] #### [facility] [address] [place] [address] Ketones (U) [Mass/Vol] Negative Normal Negative [facility] Comment on above: Performed By: #### 2 875982, [id number] #### [facility] [address] [place] [address] [place]. RBC (Bld) [Mass ratio] 0-3 Normal 0-3 [facility] Comment on above: Performed By: #### 2 574019, [id number] #### [facility] [address] [place] [address] Mucus Ql (Urine sed) 1+ Normal [facility] Comment on above: Performed By: #### 2 393822, [id number] #### [facility] [address] [place] [address] Nitrite Ql (U) Negative Normal Negative [facility] Comment on above: Performed By: #### 2 109924, [id number] #### [facility] [address] [place] [address] pH (U) 6.5 [pH] Invalid Interpretation Code 5.0-9.0 [facility] Comment on above: Performed By: #### 2 794961, [id number] #### [facility] [address] [place] [address] Protein (U) [Mass/Vol] Negative Normal Negative [facility] Comment on above: Performed By: #### 2 568498, [id number] #### [facility] [address] [place] [address] Specific gravity (U) [Rel density] 1.020 Invalid Interpretation Code 1.005-1.030 [facility] Comment on above: Performed By: #### 2 577521, [id number] #### [facility] [address] [place] [address] Type of Urine collection method Clean Catch Normal [facility] Comment on above: Performed By: #### 2 106275, [id number] #### [facility] [address] [place], [place] [id number] Urobilinogen Qn (U) 0.2 {Raji'U}/dL Normal 0.0-1.0 [facility] Comment on above: Performed By: #### 2 496870, [id number] #### [facility] [address] [place] [address] WBC Auto Ql (U) Negative Normal Negative [facility] Comment on above: Performed By: #### 2 896919, [id number] #### [facility] [address] [place] [address] WBC LM.HPF (Urine sed) [#/Area] 0-5 Normal 0-5 [facility] Comment on above: Performed By: #### 2 411889, [id number] #### [facility] [address] [place] [address] XR Chest Single Viewon 04-20 XR Chest [...] M.D. Transcribed by: ARBEN Technologist: MAYE, Noemy [facility] eGFRon 04-20-2021 GFR/1.73 sq M.predicted among blacks MDRD (S/P/Bld) [Vol rate/Area] mL/min/{1.73_m2} Normal >=59 [facility] Comment on above: Order Comment: Order added by Discern Expert. Result Comment: eGFR is race adjusted. AA=. Performed By: #### 2 698836, [id number] #### [facility] [address] [place] [address] GFR/1.73 sq M.predicted among non-blacks MDRD (S/P/Bld) [Vol rate/Area] mL/min/{1.73_m2} Normal >=59 [facility] Comment on above: Order Comment: Order added by Tamy Expert. Result Comment: [facility] brady kidney disease could be indicated at eGFR's of less than 60 mL/min/1.73m2. Kidney failure is indicated at less than 15 mL/min/1.73m2. Performed By: #### 2 385419, [id number] #### [facility] [address] [place] [address] Auto Diffon 04-19-2021 Basophils/100 WBC (Bld) 0.8 % Normal 0.0-2.0 F [facility] Comment on above: Order Comment: Order Added by Discern Expert. Performed By: #### 2 076051, [id number], 6536565, [id number], [id number], [id number], [id number] ####[facility] [address] [place] [address] Basophils/Leukocytes Auto (Bld) [Pure # fraction] 0.0 E9/L Normal 0.0-0.2 [facility] Comment on above: Order Comment: Order Added by Tamy Expert. Performed By: #### 2 107702, 9531470, [id number], [id number], [id number], [id number], [id number] ####07 [address] [address] Eosinophils/100 WBC (Bld) 1.2 % Normal 0.0-8.0 [facility] Comment on above: Order Comment: Order Added by Discern Expert. Performed By: #### 2 382807, 3511032, 1708181, 76047349, 57814846, 19743515, 99794496 ####[address] [address] Eosinophils/Leukocytes Auto (Bld) [Pure # fraction] 0.1 E9/L Normal 0.0-0.5 [facility] Comment on above: Order Comment: Order Added by Discern Expert. Performed By: #### 2 408469, 2579954, 3487967, 93375756, 47358277, 92840297, 07663370 ####[address] [address] Lymphocytes/100 WBC (Bld) 23.5 % Normal 14.0-50.0 [facility] Comment on above: Order Comment: Order Added by Discern Expert. Performed By: #### 2 206071, 7313508, 0281350, 93854474, 11795810, 18433648, 79321539 ####[address] [address] Lymphocytes/Leukocytes Auto (Bld) [Pure # fraction] 1.0 E9/L Normal 1.0-4.0 [facility] Comment on above: Order Comment: Order Added by Discern Expert. Performed By: #### 2 251616, 5349334, 0768605, 61179135, 81879477, 89538643, 13718494 ####[address] [address] Monocytes/100 WBC (Bld) 8.8 % Normal 4.0-14.0 [facility] Comment on above: Order Comment: Order Added by Discern Expert. Performed By: #### 2 108769, 8879763, 7998154, 72352255, 41976477, 46904673, 33301885 ####[facility] [address] [place] [address] Monocytes/Leukocytes Auto (Bld) [Pure # fraction] 0.4 E9/L Normal 0.2-1.0 [facility] Comment on above: Order Comment: Order Added by Discern Expert. Performed By: #### 2 167249, 6338844, 5108442, 64073080, 04338002, 77423539, 20765338 ####[address] [place] [address] Neutrophils/100 WBC (Bld) 65.7 % Normal 36.0-75.0 [facility] Comment on above: Order Comment: Order Added by Discern Expert. Performed By: #### 2 645033, 5567737, 1763688, 46727632, 13190422, 62796037, 05158387 ####[address] [place] [address] Neutrophils/Leukocytes Auto (Bld) [Pure # fraction] 2.9 E9/L Normal 2.0-7.5 [facility] Comment on above: Order Comment: Order Added by Discern Expert. Performed By: #### 2 592481, 1256849, 9893434, 60170900, 48122615, 38664617, 06351158 ####[address] [place] [address] BMPon 04-19-2021 Creatinine [Mass/Vol] 0.9 mg/dL Normal 0.5-1.3 [facility] Comment on above: Performed By: #### 2 596023, 8450599, 7543845, 16260550, 05406378, 37682574, 14854391 ####[address] [place] [address] Urea nitrogen [Mass/Vol] 18 mg/dL Normal 5-21 [facility] Comment on above: Performed By: #### 2 066391, 9625893, 8003868, 18052346, 60398366, 91245744, 95193338 ####[facility] [address] [place] [address] Urea nitrogen/Creatinine [Mass ratio] 20 No Units Normal 10-20 [facility] Comment on above: Performed By: #### 2 393911, 9091070, 6260586, 22457636, 38866410, 57719796, 08715257 ####[facility] [address] [place] [address] Anion gap [Moles/Vol] 12 mmol/L Normal 6-16 [facility] Comment on above: Performed By: #### 2 814326, 4846312, 4479751, 28113264, 88898463, 17031093, 86942674 ####[facility] [address] [place] [address] Calcium [Mass/Vol] 9.2 mg/dL Normal 8.9-11.1 [facility] Comment on above: Performed By: #### 2 034337, 6604016, 1652591, 93607698, 60977707, 36206943, 29941751 ####[facility] [address] [place] [address] Chloride [Moles/Vol] 102 mmol/L Normal 101-111 [facility] Comment on above: Performed By: #### 2 192798, 8737105, 2095873, 99359761, 26041302, 58453845, 79556525 ####[facility] [address] [place] [address] CO2 [Moles/Vol] 27 mmol/L Normal 21-31 [facility] Comment on above: Performed By: #### 2 933778, 1596279, 1491912, 06098789, 12249209, 83194803, 75682818 ####[facility] [address] [place] [address] Glucose [Mass/Vol] 115 mg/dL Normal 55-199 [facility] Comment on above: Result Comment: If t his glucose result represents a fasting glucose, interpretation should refer to the following reference range: 55-99 mg/dL Performed By: #### 2 143923, 5754170, 3449270, 29156029, 05485401, 89541202, 88753757 ####[facility] [address] [place] [address] Potassium [Moles/Vol] 3.4 mmol/L Low 3.5-5.3 [facility] Comment on above: Performed By: #### 2 393433, 6718405, 8286440, 32900243, 50789026, 85435545, 90218454 ####[facility] [address] [place] [address] Sodium [Moles/Vol] 138 mmol/L Normal 135-145 [facility] Comment on above: Performed By: #### 2 324211, 4829597, 4801458, 82013618, 08484950, 07966263, 46244236 ####[address] [address] BNPon 04-19-2021 Natriuretic peptide B (Bld) [Mass/Vol] 76 pg/mL Normal 5-80 [facility] Comment on above: Performed By: #### 2 921146, 6505942, 4256639, 42284128, 75005262, 56188845, 66770111 ####[address] [place] [address] CBC w/ Auto Diffon Erythrocyte distribution width (RBC) [Ratio] 13.1 % Normal 10.9-14.2 [facility] Comment on above: Performed By: #### 2 053760, 6662803, 6151490, 16956347, 26328200, 24407321, 28998758 ####[address] [place] [address] Hematocrit (Bld) [Volume fraction] 36.6 % Normal 34.0-46.0 [facility] Comment on above: Performed By: #### 2 199100, 4142003, 0027242, 05718866, 54720554, 08884540, 38951656 ####[address] [place] [address] Hemoglobin (Bld) [Mass/Vol] 12.5 g/dL Normal 12.0-16.0 [facility] Comment on above: Performed By: #### 2 773492, 3839435, 1871797, 20858766, 34094618, 32595576, 49889493 ####[address] [address] MCH (RBC) [Entitic mass] 33.0 pg Normal 27.0-34.0 [facility] Comment on above: Performed By: #### 2 268010, 0802504, 0021690, 78911419, 16191125, 72889706, 79898473 ####[address] [address] MCHC (RBC) [Mass/Vol] 34.0 g/dL Normal 31.4-36.0 [facility] Comment on above: Performed By: #### 2 430881, 9837411, 0560113, 64226813, 78430488, 52954187, 95052541 ####[address] [address] MCV (RBC) [Entitic vol] 97.2 fL Normal 80.0-100.0 [facility] Comment on above: Performed By: #### 2 629792, 8531413, 1467368, 98193476, 13434655, 20415275, 70234201 ####[address] [address] Platelet mean volume (Bld) [Entitic vol] 9.5 fL Normal 6.4-10.8 [facility] Comment on above: Performed By: #### 2 667935, 1970853, 8113276, 99319959, 83226645, 37299291, 92709439 ####[address] [address] Platelets (Bld) [#/Vol] 277.0 E9/L Normal 150.0-500.0 [facility] Comment on above: Performed By: #### 2 083944, 0439447, 2488855, 66158967, 76499089, 50810049, 61229945 ####[facility] [address] [place] [address] RBC (Bld) [#/Vol] 3.8 E12/L Low 4.3-5.9 [facility] Comment on above: Performed By: #### 2 326919, 4641173, 3429320, 56311953, 37766429, 18238923, 00037393 ####[facility] [address] [place] [address] WBC corrected for nucl RBC Auto (Bld) [#/Vol] 4.4 E9/L Normal 4.0-11.0 [facility] Comment on above: Performed By: #### 2 966584, 3493083, 1489582, 70147044, 08871878, 39575547, 30196617 ####[facility] [address] [place] [address] Consent for Treatmenton 03-23 Consent for Treatment [id number] Normal [facility] ED Clinical Summaryon 2020 ED Clinical Summary [address] [address] ED Clinical Summary Person Information Name: LOLA ANDINO [place] Age: 80 Years : 1940 Sex: Female Language: Monegasque PCP: LG OVIEDO DO Marital Status: Unknown Visit Id: Visit Reason: Shortness of breath; Chest pain; CHEST PAIN Speciality: Acuity: 2 Enc Type: Emergency Med Service: Emergency Arrival: 04/19/2021 14:36:15 Discharge: LOS: 000 04:12 Checkin: 04/19/2021 14:36:15 Checkout: 04/19/2021 18:48:10 Dispo Type: Admitted as IP to this [facility] EVENTS: Event Name Event Status Request [...] 04/19/2021 18:48:10 04/19/2021 18:48:10 04/19/2021 18:48:10 ADDRESS: [address] [place] [id number] [facility] DOC NOTES: MEDICAL INFORMATION: Prescriptions Given: PATIENT EDUCATION INFORMATION: Instructions: Follow up: DIAGNOSIS: 1:Chest pain; 2:Hypertension Normal [facility] ED Note-Physicianon 04-19-20 21 ED Note-Physician Basic Information Time Seen: Bailee [...] was treated and evaluated by the Physician Newspaper Photographer. The attending physician was in the Emergency [...] 14:59:00) Lymph Auto: 23.5 % (04/19/21 14:59:00) Hooker Auto: 8.8 % (04/19/21 14:59:00) Eos Auto: 1.2 % (04/19/21 14:59:00) Basophil Auto: 0.8 % (04/19/21 14:59:00) Neutro Absolute: 2.9 E9/L (04/19/21 14:59:00) Lymph Absolute: 1 E9/L (04/19/21 14:59:00) Hooker Absolute: 0.4 E9/L (04/19/21 14:59:00) Eos Absolute: 0.1 E9/L (04/19/21 14:59:00) Basophil Abs (more content not included)... Normal [facility] Comment on above: Result Comment: Elec tronically Signed By: Bailee Pierson PA-C\.br\Date and Time Signed: 04/19/21 18:49 EDT\.br\Electronically Co-Signed By: Flynn Mittal DO\.br\Date and Time Co-Signed: 04/19/21 20:39 EDT ED Patient Education Noteon 04-19-2021 ED Patient Education Note Normal [facility] ED Patient Summaryon 021 ED Patient Summary [address] [address] Patient Discharge Instructions Person Information Name: LOLA ANDINO Age: 80 Years Arrival Date: 04/19/2021 14:36:15 Discharge Diagnosis: 1:Chest pain; 2:Hypertension Primary Care Physician: LG OVIEDO DO Provider Information Primary Provider: Flynn Mittal DO Advanced Clinical Field Specialist:Bailee Pierson PA-C The exam and treatment you received in the Emergency Department were for an urgent problem and are not intended as complete care. It is important that you follow up with a doctor, nurse practitioner, or physician?s assistant professor of theater for ongoing care. If your symptoms become [...] opioids can be used to help relieve pknpbrst-ea-hercod pain and are often prescribed following a [...] guidance from the Food and Drug Administration (www.fda.gov/Drugs /ResourcesForYou). ? Visit www.cdc.gov/drugov erdose to learn about the risks of opioids abuse and overdose. ? If you believe you may be struggling with addiction, tell your health healthcare marketer and ask for guidance or call [facility] National Helpline at 7-734-421-EPZB. y Source: [place] Department of Health and Human Services/Center for Disease Control & Prevention [facility] Medications Given: Medication (more content not included)... Normal [facility] PT & PTTon 04-19-2021 aPTT Coag (PPP) [Time] 34.2 second(s) Normal 25.1-36.5 [facility] Comment on above: Result Comment: Hepa rin therapeutic range (represented by Anti-Factor Xa activity of 0.2 - 0.4 U/mL) corresponds to PTT of 56.6 - 109.0 sec. Performed By: #### 2 353067, [id number] #### [facility] [address] [place] [address] INR Coag (PPP) [Relative time] 1.0 {INR} Invalid Interpretation Code [facility] Comment on above: Result Comment: INR results are specifically intended to assess patients stabilized on long-term Anticoagulation therapy suggested INR?s ?Less Intensive Anticoagulation? 2.0 ? 3.0 Conventional Range 3.0 ? 4.5 Performed By: #### 2 277758, [id number] #### [facility] [address] [place] [address] PT Coag (PPP) [Time] 11.7 second(s) Normal 10.2-12.9 [facility] Comment on above: Performed By: #### 2 720811, [id number] #### [facility] [address] [place] [address] Troponin 0 Hr.on 04-19-2021 Troponin I.cardiac [Mass/Vol] 4.00 pg/mL Low 10.10-27.10 [facility] Comment on above: Result Comment: The 95% CI (Confidence Interval) PPV (Positive Predictive Value) for myocardial infarction in females is 38 pg/mL, in males 51 pg/mL. The results should be used in conjunction with clinical conditions of myocardial infarction. (Access High Sensitivity Troponin I Instructions For Use, [employer], March 2018) Performed By: #### 2 897913, [id number] #### [facility] [address] [place] [address] Troponin 3 Hr.on 04-19-2021 Troponin I.cardiac [Mass/Vol] 24.40 pg/mL Normal 10.10-27.10 [facility] Comment on above: Result Comment: The 95% CI (Confidence Interval) PPV (Positive Predictive Value) for myocardial infarction in females is 38 pg/mL, in males 51 pg/mL. The results should be used in conjunction with clinical conditions of myocardial infarction. (Access High Sensitivity Troponin I Instructions For Use, [employer], March 2018) Performed By: #### 2 237525, [id number] #### [facility] [address] [place] [address] Troponin 6 Hr.on 04-19-2021 Troponin I.cardiac [Mass/Vol] 21.50 pg/mL Normal 10.10-27.10 [facility] Comment on above: Result Comment: The 95% CI (Confidence Interval) PPV (Positive Predictive Value) for myocardial infarction in females is 38 pg/mL, in males 51 pg/mL. The results should be used in conjunction with clinical conditions of myocardial infarction. (Access High Sensitivity Troponin I Instructions For Use, [employer], March 2018) Performed By: #### 2 998666, [id number] #### [facility] [address] [place] [address] eGFRon 04-19-2021 GFR/1.73 sq M.predicted among blacks MDRD (S/P/Bld) [Vol rate/Area] mL/min/{1.73_m2} Normal >=59 [facility] Comment on above: Order Comment: Order added by Discern Expert. Result Comment: eGFR is race adjusted. AA=. Performed By: #### 2 755678, 0663465, 4160645, 81047284, 97800368, 50380798, 86561846 ####[facility] [address] [place] [address] GFR/1.73 sq M.predicted among non-blacks MDRD (S/P/Bld) [Vol rate/Area] 60 mL/min/1.73 m2 Normal >=59 [facility] Comment on above: Order Comment: Order added by Discern Expert. Result Comment: [facility] brady kidney disease could be indicated at eGFR's of less than 60 mL/min/1.73m2. Kidney failure is indicated at less than 15 mL/min/1.73m2. Performed By: #### 2 870138, 2155723, 6524970, 18587996, 81549404, 70140657, 14806262 ####[facility] [address] [place] [address] Vital Signs Date Time Vital Sign Value Performing Clinician Facility 05-07-2025 09:08040 Body height 153.67 cm Tailored DO Work Phone: [facility] 05-07-2025 09:08-0400 Body mass index (BMI) [Ratio] 25.1 kg/m2 Lg Ball DO Work Phone: [facility] 05-07-2025 09:08-0400 Body weight 59.42 kg Lg Balanced DO Work Phone: [facility] 05-07-2025 09:08-0400 Diastolic blood pressure 73 mm[Hg] Lg Ball DO Work Phone: [facility] 05-07-2025 09:08-0400 Heart rate 61 /min Tailored DO Work Phone: [facility] 05-07-2025 09:08-0400 Respiratory rate 12 /min Lg Ball DO Work Phone: [facility] 05-07-2025 09:08-0400 Systolic blood pressure 171 mm[Hg] Lg Ball DO Work Phone: [facility] 04-16-2025 14:56-0400 Body height 153.67 cm Lg Ball DO Work Phone: [facility] 04-16-2025 14:56-0400 Body mass index (BMI) [Ratio] 24.7 kg/m2 Lg Ball DO Work Phone: [facility] 04-16-2025 14:56-0400 Body weight 58.28 kg Lg Ball DO Work Phone: [facility] 04-16-2025 14:56-0400 Diastolic blood pressure 77 mm[Hg] Lg Ball DO Work Phone: [facility] 04-16-2025 14:56-0400 Diastolic blood pressure 85 mm[Hg] Lg Ball DO Work Phone: [facility] 04-16-2025 14:56-0400 Heart rate 87 /min Lg Ball DO Work Phone: [facility] 04-16-2025 14:56-0400 Respiratory rate 12 /min Lg Ball DO Work Phone: [facility] 04-16-2025 14:56-0400 Systolic blood pressure 175 mm[Hg] Lg Ball DO Work Phone: [facility] 04-16-2025 14:56-0400 Systolic blood pressure 135 mm[Hg] Lg Ball DO Work Phone: [facility] 01-28-2025 08:32-0400 Body height 153.[address] [facility] 01-28-2025 08:32-0400 Body mass index (BMI) [Ratio] 25.4 kg/m2 [facility] 01-28-2025 08:32-0400 Body weight 60.[address] [facility] 01-28-2025 08:32-0400 Diastolic blood pressure 72 mm[Hg] [facility] 01-28-2025 08:32-0400 Heart rate 71 /min [facility] 01-28-2025 08:32-0400 Respiratory rate 12 /min [facility] 01-28-2025 08:32-0400 Systolic blood pressure 165 mm[Hg] [facility] 12-06-2024 10:39-0400 Body height 153.[address] [facility] 12-06-2024 10:39-0400 Body mass index (BMI) [Ratio] 25.5 kg/m2 [facility] 12-06-2024 10:39-0400 Body weight 60.[address] [facility] 12-06-2024 10:39-0400 Diastolic blood pressure 94 mm[Hg] [facility] 12-06-2024 10:39-0400 Heart rate 87 /min [facility] 12-06-2024 10:39-0400 Respiratory rate 12 /min [facility] 12-06-2024 10:39-0400 Systolic blood pressure 169 mm[Hg] [facility] 10-30-2024 08:28-0400 Body height 153.[address] [facility] 10-30-2024 08:28-0400 Body mass index (BMI) [Ratio] 26.2 kg/m2 [facility] 10-30-2024 08:28-0400 Body weight 61.[address] [facility] 10-30-2024 08:28-0400 Diastolic blood pressure 65 mm[Hg] [facility] 10-30-2024 08:28-0400 Heart rate 55 /min [facility] 10-30-2024 08:28-0400 Respiratory rate 12 /min [facility] 10-30-2024 08:28-0400 SaO2% (BldA) [Mass fraction] 98 % [facility] 10-30-2024 08:28-0400 Systolic blood pressure 130 mm[Hg] [facility] 05-02-2024 09:36-0400 Body height 153.[address] [facility] 05-02-2024 09:36-0400 Body mass index (BMI) [Ratio] 27.8 kg/m2 [facility] 05-02-2024 09:36-0400 Body weight 65.[address] [facility] 05-02-2024 09:36-0400 Diastolic blood pressure 73 mm[Hg] [facility] 05-02-2024 09:36-0400 Heart rate 65 /min [facility] 05-02-2024 09:36-0400 Respiratory rate 12 /min [facility] 05-02-2024 09:36-0400 Systolic blood pressure 130 mm[Hg] [facility] 03-22-2024 10:54-0400 Body height 153.[address] [facility] 03-22-2024 10:54-0400 Body mass index (BMI) [Ratio] 27.6 kg/m2 [facility] 03-22-2024 10:54-0400 Body weight 65.[address] [facility] 03-22-2024 10:54-0400 Diastolic blood pressure 89 mm[Hg] [facility] 03-22-2024 10:54-0400 Heart rate 71 /min [facility] 03-22-2024 10:54-0400 Respiratory rate 12 /min [facility] 03-22-2024 10:54-0400 Systolic blood pressure 139 mm[Hg] [facility] 02-28-2024 10:32-0400 Body height 153.[address] [facility] 02-28-2024 10:32-0400 Body mass index (BMI) [Ratio] 27.7 kg/m2 [facility] 02-28-2024 10:32-0400 Body weight 65.[address] [facility] 02-28-2024 10:32-0400 Diastolic blood pressure 71 mm[Hg] [facility] 02-28-2024 10:32-0400 Heart rate 82 /min [facility] 02-28-2024 10:32-0400 Respiratory rate 12 /min [facility] 02-28-2024 10:32-0400 Systolic blood pressure 180 mm[Hg] [facility] 12-22-2023 11:18-0400 Body height 153.[address] [facility] 12-22-2023 11:18-0400 Body mass index (BMI) [Ratio] 28.6 kg/m2 [facility] 12-22-2023 11:18-0400 Body temperature 98.4 [degF] [facility] 12-22-2023 11:18-0400 Body weight 67.[address] [facility] 12-22-2023 11:18-0400 Diastolic blood pressure 82 mm[Hg] [facility] 12-22-2023 11:18-0400 Heart rate 95 /min [facility] 12-22-2023 11:18-0400 SaO2% (BldA) [Mass fraction] 97 % [facility] 12-22-2023 11:18-0400 Systolic blood pressure 156 mm[Hg] [facility] 11-09-2023 14:06-0400 Body height 153.[address] [facility] 11-09-2023 14:06-0400 Body mass index (BMI) [Ratio] 29.6 kg/m2 [facility] 11-09-2023 14:06-0400 Body weight 69.[address] [facility] 11-09-2023 14:06-0400 Diastolic blood pressure 94 mm[Hg] [facility] 11-09-2023 14:06-0400 Heart rate 90 /min [facility] 11-09-2023 14:06-0400 Respiratory rate 12 /min [facility] 11-09-2023 14:06-0400 Systolic blood pressure 168 mm[Hg] [facility] 05-10-2023 09:00-0400 Body height 160.02 cm Lg Ball Other [employer] Other 05-10-2023 09:00-0400 Body mass index (BMI) [Ratio] 26.6 kg/m2 Lg Ball Other [facility] Other 05-10-2023 09:00-0400 Body weight 68.13 kg Lg Ball Other [facility] Other 05-10-2023 09:00-0400 Diastolic blood pressure 78 mm[Hg] Lg Ball Other [facility] Other 05-10-2023 09:00-0400 Respiratory rate 12 /min Lg Ball Other [facility] Other 05-10-2023 09:00-0400 Systolic blood pressure 185 mm[Hg] Lg Ball Other [facility] Other 03-25-2023 13:30-0400 Body height 160.02 cm Lg Ball Other [facility] Other 03-25-2023 13:30-0400 Body mass index (BMI) [Ratio] 25.58 kg/m2 Lg Ball Other [facility] Other 03-25-2023 13:30-0400 Body weight 65.5 kg Lg Ball Other [facility] Other 03-25-2023 13:30-0400 Diastolic blood pressure 78 mm[Hg] Lg Ball Other [facility] Other 03-25-2023 13:30-0400 Respiratory rate 12 /min Lg Ball Other [employer] Other 03-25-2023 13:30-0400 Systolic blood pressure 187 mm[Hg] Lg Ball Other [employer] Other Encounters Encounter Date Encounter Type Care Provider Facility Start: 05-07-2025 End: 05-07-2025 ambulatory Lg Ball DO Work Phone: [facility] Work Phone: Start: 05-07-2025 End: 05-07-2025 Patient encounter procedure Lg Oviedo DO -[facility] Work Phone: Start: 04-16-2025 End: 04-16-2025 ambulatory Lg Oviedo DO Work Phone: [facility] Work Phone: Start: 04-16-2025 End: 04-16-2025 Patient encounter procedure Lg Oviedo DO -[facility] Work Phone: Start: 03-26-2025 Non-patient / Non-visit Lg romeo DO -[facility] Work Phone: Start: 02-06-2025 Non-patient / Non-visit Lg romeo DO -[facility] Work Phone: Start: 01-28-2025 End: 01-28-2025 ambulatory [facility] Work Phone: Start: 01-28-2025 End: 01-28-2025 Patient encounter procedure [facility] Work Phone: Start: 12-06-2024 End: 12-06-2024 Patient encounter procedure [facility] Work Phone: Start: 10-31-2024 Non-patient / Non-visit [facility] Work Phone: Start: 10-30-2024 End: 10-30-2024 ambulatory [facility] Work Phone: Start: 10-30-2024 End: 10-30-2024 Patient encounter procedure [facility] Work Phone: Start: 05-02-2024 End: 05-02-2024 ambulatory [facility] Work Phone: Start: 05-02-2024 End: 05-02-2024 Patient encounter procedure [facility] Work Phone: Start: 04-27-2024 Non-patient / Non-visit [facility] Work Phone: Start: 03-22-2024 End: 03-22-2024 ambulatory [facility] Work Phone: Start: 03-22-2024 End: 03-22-2024 Patient encounter procedure [facility] Work Phone: Start: 02-29-2024 Non-patient / Non-visit [facility] Work Phone: Start: 02-28-2024 End: 02-28-2024 ambulatory [facility] Work Phone: Start: 02-28-2024 End: 02-28-2024 Patient encounter procedure [facility] Work Phone: Start: 12-28-2023 End: 12-28-2023 ambulatory [facility] Work Phone: Start: 12-28-2023 End: 12-28-2023 Patient encounter procedure [facility] [facility] Work Phone: Start: 12-22-2023 End: 12-22-2023 Patient encounter procedure [facility] Work Phone: Start: 11-09-2023 End: 11-09-2023 ambulatory [facility] Work Phone: Start: 11-09-2023 End: 11-09-2023 Patient encounter procedure [facility] Work Phone: Start: 10-24-2023 Non-patient / Non-visit [facility] Work Phone: Start: 10-14-2023 End: 10-14-2023 ambulatory [facility] Work Phone: Start: 10-14-2023 End: 10-14-2023 Patient encounter procedure [facility] Work Phone: Start: 08-23-2023 End: 08-23-2023 ambulatory LORI Merchant TIMMIS Not Available Start: 07-20-2023 End: 07-20-2023 ambulatory LORI H TIMMIS Not Available Start: 06-17-2023 End: 06-17-2023 ambulatory Lg Oviedo Other [facility] Other Start: 06-17-2023 Nursing evaluation o f patient and report Lg Oviedo [facility] Start: 05-19-2023 End: 05-19-2023 ambulatory Lg Oviedo Other [facility] Other Start: 05-19-2023 Telephone encounter Lg Oviedo [facility] Start: 05-17-2023 End: 05-17-2023 ambulatory Lg Oviedo Other [facility] Other Start: 05-17-2023 Telephone encounter Lg Oviedo [facility] Start: 05-12-2023 End: 05-12-2023 ambulatory Lg Oviedo Other [facility] Other Start: 05-12-2023 Telephone encounter Lg Oviedo [facility] Start: 05-10-2023 End: 05-10-2023 ambulatory Lg Oviedo Other [facility] Other Start: 05-10-2023 Patient encounter procedure Lg Oviedo [facility] Start: 04-18-2023 End: 04-18-2023 ambulatory Lg Oviedo Other [facility] Other Start: 04-18-2023 Telephone encounter Lg TAYLOR [facility] Start: 04-07-2023 End: 04-07-2023 ambulatory Lg Oviedo Other [facility] Other Start: 04-07-2023 Telephone encounter Lg Oviedo [facility] Start: 04-05-2023 End: 04-05-2023 ambulatory Lg Oviedo Other [facility] Other Start: 04-05-2023 Telephone encounter Lg Oviedo BRANDON Oviedo [facility] Start: 04-01-2023 End: 04-01-2023 ambulatory Lg Oviedo Other [facility] Other Start: 04-01-2023 Telephone encounter Lg Oviedo BRANDON Oviedo [facility] Start: 03-25-2023 End: 03-25-2023 ambulatory Lg Oviedo Other [facility] Other Start: 03-25-2023 Office outpatient vi sit 15 minutes Lg Oviedo [facility] Preet [facility] Start: 08-10-2022 End: 08-11-[address] LG OVIEDO Facility:[facility]1 Start: 05-06-2022 End: 05-07-[address] LG OVIEDO Facility:[facility] Start: 04-06-2022 End: 04-07-[address] LG OVIEDO Facility:[facility] Start: 01-06-2022 End: 01-07-[address] GL OVIEDO Facility:[facility] Plan of Treatment Date Care Activity Detail Author Comprehensive metabo lic 1999 panel - Serum or Plasma [facility] enter Comprehensive metabo lic 1999 panel - Serum or Plasma [facility] enter US Abdomen limited [facility] US scan of abdominal aorta F [facility] US Thyroid gland [facility] XR Chest 2 Views [facility] XR Chest 2 Views [facility] XR Knee - left 4 Views [facility] Immunizations Immunization Date Immunization Notes Care Provider Fa ciliviri 04-17-2020 pneumococcal polysaccharide vaccine, 23 valent Lg Oviedo Other [facility] 11-28-2017 diphtheria, tetanus toxoids and acellular pertussis vaccine, unspecified formulation Lg Oviedo Other [facility] 10-25-2016 TD(adult) unspecifie d formulation Lg Oviedo DO Work Phone: [facility] 10-25-2016 tetanus and diphther ia toxoids, adsorbed, preservative free, for adult use (5 Lf of tetanus toxoid and 2 Lf of diphtheria toxoid) [facility] 10-25-2016 tetanus toxoid, redu tammy diphtheria toxoid, and acellular pertussis vaccine, adsorbed Lg Oviedo Other [facility] Other Payers Date Payer Category Payer Medicare [id number]. [id number] 1960 Medicare [id number] 1940 Unknown [id number] [id number] [id number] 1940 Unknown [id number] 2.16.84 [id number] 1940 Unknown [id number] 2.16.84 [id number] 1940 Unknown [id number] 2.16.84 [id number] 1940 Unknown [id number] 1940 Unknown [id number] Medicare Medicare Outpatient [id number] Unknown [id number] 2.1 [id number] Unknown [facility] Health Claims [id number] Social History Date Type Detail Facility Sex Assigned At [facility] Other Start: 1940 Sex Assigned At Female F [facility] Start: 12-22-2023 Tobacco smoking stat us COIS Never smoked tobacco (finding) [facility] Start: 10-30-2024 End: 01-28-2025 Sex Female (finding) [facility] Clinical Notes 11-28-2017 to 04-16-2025 Note Date & Type Note Facility 04-16-2025 Evaluation note Diagnosis Onset Date Resolution Abdominal aortic aneurysm acute April 16 2:39pm Hypertension acute April 16, 2025 2:39pm Pulmonary nodule acute March 232024 2:39pm Thyroid nodule acute March 2:39pm Weight loss acute April 16, 2025 2:39pm Viral syndrome noneactive March 2:39pm Abdominal aortic aneurysm acute May 07, 2025 8:52am Bronchiectasis acute May 07, 2025 8:52am Chronic venous insufficiency of lower extremity acute May 07, 2025 8:52am Hypertension acute May 072024 8:52am Mammogram declined acute 2024 8:52am Medicare annual wellness visit, subsequent acute April 8:52am Pulmonary nodule acute 2024 8:52am Thyroid nodule acute May 07, 2025 8:52am Weight loss acute April 8:52am [facility] Work Phone: 1(154) 394-318506-09-2025 Evaluation note* Diagnosis Onset Date Resolution Status Admit Date Abdominal aortic aneurysm acute January 28, 2025 8:18am Abdominal pain acute January 28, 2025 8:18am Hypertension acute January 28 8:18am Pulmonary nodule acute January 8:18am Thyroid nodule acute January 28, 2025 8:18am Weight loss acute January 28 8:18am [facility] Work Phone: 1(971) 520-683903-11-2025 Evaluation note* Diagnosis Onset Date Resolution Status [...] 06, 2024 10:06am Acute bronchitis due to othe r specified organisms noneactive December 06, 2024 10:06am [facility] Work Phone: 1([phone]) 743-621710-27-2023 Evaluation note* Encounter Date Diagnosis Assessment Notes Treatment Notes Treatment Clinical Notes May, Dysuria (ICD-10 - R30.0) [facility] Other 09-26-2023 Evaluation note* Encounter Date Diagnosis Assessment Notes Treatment Notes Treatment Clinical Notes Apr, Pulmonary nodule (ICD-10 - R91.1) CXR 6mm - 04/2021, CT small nodules - 04/2022 CT small nodules, stable - 04/2023 [facility] Other 09-19-2023 Evaluation note* Encounter Date Diagnosis [...] medication use (ICD-10 - Z79.899) Check labs [facility] Other 08-15-2023 Evaluation note* Encounter Date Diagnosis Assessment Notes Treatment Notes Treatment Clinical Notes Mar, Dizziness (ICD-10 - R42) [facility] Other 08-11-2023 Evaluation note* Encounter Date Diagnosis Assessment Notes Treatment Notes Treatment Clinical Notes Mar, Claustrophobia (ICD-10 - F40.240) [facility] Other 08-04-2023 Evaluation note* Encounter Date Diagnosis [...] related to other complaints or separate problem [facility] Other 07-22-2022 Note From: Genesis Denny To: HV - Administrative; Sent: 05/20/2021 08:15:18 EDT Show up: 12/18/2021 08:15:00 EDT Subject: 8 month follow up Due Date/Time: 01/17/2022 08:15:00 EDT Reminder/Recall 8 month follow up with Dr. Jacques (December) tried calling twice and patient hung up on my both times after i said hello. [facility]09-29-2021 Note From: Genesis Denny To: HV - Administrative; Sent: 05/20/2021 08:14:37 EDT Show up: 08/19/2021 07:14:00 EST Subject: 4 month follow up Due Date/Time: 09/19/2021 07:14:00 EST Reminder/Recall 4 month follow up with Haley (2021)[facility]08-30-2021 NoteAdmission Information Admitting Physician - MARLEN [...] no EKG changes. Pt was [place] [facility] [place], recommended outpatient stress test and started on lisinopril 5 mg po q day for uncontrolled HTN. pt with some complaints of dysuria, negative UA, if persists to follow up with urology outpatient. Pt discharged home in improved condition to follow up with PCP and [facility] [place]. d/w patient [...] 14:59:00) Lymph Auto: 23.5 % (04/19/21 14:59:00) Hooker Auto: 8.8 % (04/19/21 14:59:00) Eos Auto: 1.2 % (04/19/21 14:59:00) Basophil Auto: 0.8 % (04/19/21 14:59:00) Neutro Absolute: 2.9 E9/L (04/19/21 14:59:00) Lymph Absolute: 1 E9/L (04/19/21 14:59:00) Hooker Absolute: 0.4 E9/L (04/19/21 14:59:00) Eos Absolute: [...] aspirin 81 mg O (more content not included)...[facility]Result Comment: Electronically Signed By: ÁNGELA SINHA, Patrick\.br\Date and Time Signed: 04/20/21 13:09 [id number] NoteChief Complaint Sharp pains in chest weakness [...] 14:59:00) Lymph Auto: 23.5 % (04/19/21 14:59:00) Hooker Auto: 8.8 % (04/19/21 14:59:00) Eos Auto: 1.2 % (04/19/21 14:59:00) Basophil Auto: 0.8 % (04/19/21 14:59:00) Neutro Absolute: 2.9 E9/L (04/19/21 14:59:00) Lymph Absolute: 1 E9/L (04/19/21 14:59:00) Hooker Absolute: 0.4 E9/L (04/19/21 14:59:00) Eos Absolute: [...] = 1 tab(s), Tab-Chew, (more content not included)...[facility]Result Comment: Electronically Signed By: Susanne SINHA, Andre\.br\Date and Time Signed: 08/29/21 21:01 [id number] History general Narrative - Reported* Type Description Date Medical History Bronchiectasis without complicat ion Medical History Essential hypertension Medical History Elevated cholesterol Surgical History BTL 11/28/2017 Hospitalization History see surgical history [facility] Other 04-09-2018 History general Narrative - Reported* Type Description Date Medical History Bronchiectasis without complicat ion Medical History Essential hypertension Medical History Elevated cholesterol Medical History BRVO left eye Surgical History BTL 11/28/2017 Hospitalization History see surgical history [facility] Other evaluation noteNo InformationNort Per Vices Other Evaluation noteNo assessment information available [facility] Work Phone: evaluation note* Diagnosis Onset Date Resolution Status Bronchiectasis acute Hypertension acute Pulmonary nodule acute Suspected sleep apnea acute Fatigue noneactive [facility] Work Phone: evaluation note* Diagnosis Onset Date Resolution Status Bronchiectasis acute Hypertension acute Pulmonary nodule acute Suspected sleep apnea acute Fatigue noneactive Hypertension acute Left knee pain acute Acute bronchitis due to other specified organisms noneactive [facility] Work Phone: evaluation note* Diagnosis Onset Date Resolution Status Hypertension acute Left knee pain acute Acute bronchitis due to other specified organisms noneactive Anemia acute Bronchiectasis acute Chronic venous insufficiency of lower extremity acute Hypertension acute [facility] Work Phone: evaluation note* Diagnosis Onset Date Resolution Status Anemia acute Bronchiectasis acute Chronic venous insufficiency of lower extremity acute Hypertension acute Hypertension acute Left knee pain acute Primary osteoarthritis of knee acute [facility] Work Phone: evaluation note* Diagnosis Onset Date Resolution Status Anemia acute Bronchiectasis acute Chronic venous insufficiency of lower extremity acute Hypertension acute Hypertension acute Left knee pain acute Primary osteoarthritis of knee acute Hypertension acute Primary osteoarthritis of knee acute [facility] Work Phone: evaluation note* Diagnosis Onset Date Resolution Status Admit Date Anemia acute October 30 8:26am Bronchiectasis acute October 8:26am Chronic venous insufficiency of lower extremity acute October 30, 2024 8:26am Hypertension acute October 30, 2024 8:26am Primary osteoarthritis of knee acute October 30, 2024 8:26am Pulmonary nodule acute October 302024 8:26am [facility] Work Phone: Reason for referral (narrative)* [...] [facility] Referred Provider Lori Gunter Referred Address ,[place], [place],[address] Referred Provider Specialty Ear, Nose an d [...] evaluation and treatment. Clinical Notes Include MRI [facility] Other Reason for referral (narrative)No reason for referral information available[facility] Work Phone: Summary Purpose Family History Relationship Condition Age [...] other specified organisms December 06, 2024 10:06am Chief Complaint Admit Date sore throat/stomach pain January 28, 2025 8:18am fatigue April 16, 2025 2: 39pm Reason for Visit Admit Date Abdominal aortic aneurysm January 28, 2025 8:18am Abdominal pain January 28, 2025 8:18a m Hypertension January 28, 2025 8:18a m Pulmonary nodule January 28, 2025 8:18a m Thyroid nodule January 28, 2025 8:18a m Weight loss January 28, 2025 8:18a m Chief Complaint Admit Date fatigue April 16, 2025 2: 39pm Wellness May 07, 2025 8:52am Reason for Visit Admit Date Abdominal aortic aneurysm April 16, 2 025 2:39pm Hypertension April 16, 2025 2: 39pm Pulmonary nodule April 16, 2025 2: 39pm Thyroid nodule April 16, 2025 2: 39pm Weight loss April 16, 2025 2: 39pm Viral syndrome April 16, 2025 2: 39pm Abdominal aortic aneurysm April 8:52am Bronchiectasis May 07, 2025 8:52am Chronic venous insufficiency of lower ex tremity May 07, 2025 8:52am Hypertension May 07, 2025 8:52am Mammogram declined May 07, 2025 8:52am Medicare annual wellness visit, subseque nt May 07, 2025 8:52am Pulmonary nodule May 07, 2025 8:52am Thyroid nodule May 07, 2025 8:52am Weight loss May 07, 2025 8:52am Additional Source Comments INFORMATION SOURCE (unrecogn ized section and content) DATE CREATED AUTHOR 03/14/2022 [facility] DATE CREATED AUTHOR AUTHOR'S ORGANIZ ATION 08/18/2022 [facility] DATE CREATED AUTHOR AUTHOR'S ORGANIZ ATION 08/23/2023 [facility] EPIC REASON FOR VISIT (unrecogniz ed section and content) dizzinessmedicationNo Inform ationdizzinessMRI resultsReferralWellnessNo InformationNo InformationCT/Lab ResultsUA - burning frequency Care Teams (unrecognized sec tion and content) Team Status: Active Member Role Status Dates Lg Oviedo DO Primary Care Provider Active Team Status: Active Member Role Status Dates Lg Oviedo DO Primary Care Provider Active Start: February 06, 2025 Lg Oviedo DO Attending Provider Active Sta rt: February 06, 2025 Team Status: Active Member Role Status Dates Lg Oviedo DO Primary Care Provider Active Start: March 26, 2025 Lg Oviedo DO Attending Provider Active Sta rt: March 26, 2025 Team Status: Inactive Member Role Status Dates Lg Oviedo DO Primary Care Provider Active Start: April 16, 2025 End: April 16, 2025 Lg Oviedo DO Attending Provider Active Sta rt: April 16, 2025 End: April 16, 2025 Team Status: Inactive Member Role Status Dean Oviedo DO Primary Care Provider Active Start: May 07, 2025 End: May 07, 2025 gL Oviedo DO Attending Provider Active Sta rt: May 07, 2025 End: May 07, 2025 Team Status: Active Member Role Status Dean Oviedo DO Primary Care Provider Active Team Status: Inactive Member Role Status Dean Oviedo DO Primary Care Provide r, Attending Provider Active Start: October 14, 2023 End: October 14, 2023 Team Status: Active Member Role Status Dean Oviedo DO Primary Care Provider Active Start: October 24, 2023 DYLON Helms Attending Provider Active Start : October 24, 2023 Team Status: Inactive Member Role Status Dean Oviedo DO Primary Care Provide r, Attending Provider Active Start: November 09, 2023 End: November 09, 2023 Team Status: Inactive Member Role Status Dean Oviedo DO Primary Care Provide r, Attending Provider Active Start: December 22, 2023 End: December 22, 2023 Team Status: Inactive Member Role Status Dean Oviedo DO Primary Care Provide r, Attending Provider Active Start: December 28, 2023 End: December 28, 2023 Team Status: Inactive Member Role Status Dean Oviedo DO Primary Care Provide r, Attending Provider Active Start: February 28, 2024 End: February 28, 2024 Team Status: Active Member Role Status Dean Oviedo DO Primary Care Provide r, Attending Provider Active Start: February 29, 2024 Team Status: Inactive Member Role Status Dean Oviedo DO Primary Care Provide r, Attending Provider Active Start: March 22, 2024 End: March 22, 2024 Team Status: Active Member Role Status Dean Oviedo DO Primary Care Provide r, Attending Provider Active Start: April 27, 2024 Team Status: Inactive Member Role Status Dean Oviedo DO Primary Care Provide r, Attending Provider Active Start: May 02, 2024 End: May 02, 2024 Team Status: Inactive Member Role Status Dean Oviedo DO Primary Care Provide r, Attending Provider Active Start: October 30, 2024 End: October 30, 2024 Team Status: Active Member Role Status Dean Oviedo DO Primary Care Provide r, Attending [...] January 28, 2025 End: January 28, 2025 Team Status: Inactive Member Role Status Dates Lg Oviedo , DO Primary Care Provider Active Start: January 28, 2025 End: January 28, 2025 Lg Oviedo , DO Attending Provider Active Sta rt: January 28, 2025 End: January 28, 2025 Team Status: Active Member Role Status Dates Lg Oviedo , DO Primary Care Provider Active Start: February 06, 2025 Lg Ball , DO Attending Provider Active Sta rt: February 06, 2025 Team Status: Active Member Role Status Dates Lg Oviedo , DO Primary Care Provider Active Start: March 26, 2025 Lg Ball , DO Attending Provider Active Sta rt: March 26, 2025 Team Status: Inactive Member Role Status Dates Lg Oviedo , DO Primary Care Provider Active Start: April 16, 2025 End: April 16, 2025 Lg Ball , DO Attending Provider Active Sta rt: April 16, 2025 End: April 16, 2025 Team Status: Inactive Member Role Status Dates Lg Oviedo , DO Primary Care Provider Active Start: May 07, 2025 End: May 07, 2025 Lg Ball , DO Attending Provider Active Sta rt: May 07, 2025 End: May 07, 2025 Goals (unrecognized section and content) Goals [...] BE BASED ON THE PRIMARY CLINICAL RECORDS. [facility] [employer] [facility]. provides no warranty or guarantee of the accuracy or completeness of information in this document.
--- NOTE | 2025-05-13 09:30 | CT_ITS ---
The [address] [address] Patient Name: LOLA ANDINO MRN: [id number] date: 1940 Sex: F Assigned Patient Location: LAB Current Patient Location: LAB Accession/Order Number: [id number] Exam Date: 05/13/2025 10:05 Report Date: 05/13/2025 11:11 At the request of: HALIMA HONG DO Procedure: CT soft tissue neck w con CT SOFT TISSUE NECK WITH CONTRAST CLINICAL DATA: Palpable neck lumps. Cervical lymphadenopathy COMPARISON: Thyroid ultrasound 02/06/2025 Spiral images were obtained through the neck following 100 MLO Omnipaque 300. Markers were placed at the sites of palpable concern. This CT exam was performed using one or more following dose reduction techniques: Automated exposure control, adjustment of the mA and/or kV according to patient size, or use of iterative reconstruction technique. The parotid and submandibular glands are symmetric. There is heterogeneity at the thyroid lobes and bilateral nodularity correlating with previous ultrasound. There is no significant enlargement of the adenoids or tonsils. The epiglottis is unremarkable. There is asymmetric calcification at the right arytenoid cartilage on the right. The airway is patent throughout its course with normal appearance the mucosal surfaces. There is no prevertebral soft tissue swelling. There are small shotty cervical lymph nodes, none of which are pathologically enlarged. There are no enlarged lymph nodes correlating with the sites marked as palpable. Mild carotid and moderate left V4 plaque are visualized. Mild degenerative changes are seen at the spine. Patient is edentulous. Mild mucosal thickening is seen at the left maxillary sinus. The upper imaged lungs show no contributory findings CT/CT soft tissue neck w con IMPRESSION: THYROID NODULARITY, ALSO SEEN PREVIOUSLY ON THYROID ULTRASOUND. NO PATHOLOGIC ADENOPATHY OR OTHER ACUTE NECK FINDINGS. MILD CHRONIC LEFT MAXILLARY SINUSITIS. Impression dictated by: Laisha Ferrer M.D. 05/13/2025 11:11 AM Dictation Location[facility] Weekend Electronically authenticated by: [id number] Date: 05/13/2025 11:11
[2025-05-13 09:42] LABS: Hematocrit 36.9 % (36.0-48.0); Hemoglobin 12.3 g/dL (12.0-16.0); Immature Granulocytes Abs Auto 0.01 10^3/uL (0.00-0.03); Immature Granulocytes Pct Auto 0.2 % (0.0-0.5); Lymphocytes Absolute Auto 1.1 10^3/uL (1.2-3.8); Mean Corpuscular HGB Conc 33.3 g/dL (29.9-35.2); Mean Corpuscular Hemoglobin 32.6 pg (26.7-34.0); Mean Corpuscular Volume 97.9 fL (81.0-99.0); Platelet Count 277 10^3/uL (150-450); Red Blood Count 3.77 10^6/uL (4.20-5.40); White Blood Count 4.9 10^3/uL (4.0-11.0)
[2025-05-13 09:50] LABS: Alanine Aminotransferase 27 U/L (14-59); Albumin Globulin Ratio 1.1; Albumin Level 4.0 g/dL (3.4-5.0); Alkaline Phosphatase 133 U/L (46-116); Anion Gap 13.7; Aspartate Amino Transferase 20 U/L (15-37); Blood Urea Nitrogen 26.0 mg/dL (7.0-18.0); Calcium 8.9 mg/dL (8.5-10.1); Carbon Dioxide 28.0 mmol/L (21.0-32.0); Chloride 104 mmol/L (98-107); Estimated GFR (African America >60 (>=60 mL/min/1.73m^2); Estimated GFR (Non-African Ame >60 (>=60 mL/min/1.73m^2); Globulin 3.6 g/dL; Glucose 107 mg/dL (74-106); Potassium 3.7 mmol/L (3.5-5.1); Sodium 142 mmol/L (136-145); Total Protein 7.6 g/dL (6.4-8.2)
[2025-05-13 10:00] LABS: Thyroid Stimulating Hormone 2.782 uIU/mL (0.358-3.740)
[2025-05-13 10:52] LABS: Iron 86.0 ug/dL (50.0-170.0); Percent Iron Saturation 36.8 %; Total Iron Binding Capacity 234.0 ug/dL (250.0-450.0)
[2025-05-13 11:09] LABS: Ferritin 216.0 ng/mL (8.0-252.0); Folate 24.30 ng/mL (8.60-58.90)
[2025-05-14 04:12] LABS: Vitamin B12 1046 pg/mL (232-1245)
== END 2025-05-13 09:14 | disposition home or self-care (01) ==
LOC: LAB 09:13
PROVIDERS: PCP Internal Medicine; Visit Provider Internal Medicine
DX: D64.9 Anemia, unspecified (principal); I10 Essential (primary) hypertension; E03.8 Other specified hypothyroidism; R59.0 Localized enlarged lymph nodes; E04.1 Nontoxic single thyroid nodule
CPT/HCPCS: 36415; 70491; 80053; 82607; 82728; 82746; 83540; 83550; 84443; 85025; Q9967

== ENCOUNTER 2025-06-07 08:24 | Outpatient (OUT) | payer MEDICARE, SELFPAY ==
--- OUTSIDE RECORDS SUMMARY | 2025-06-07 08:28 | XMS_ITS | CCD ---
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 Name Role Phone PREET, DR VARGHESE Admitting [...] Care Unavailable BALL, DR VARGHESE Consulting Unavailable Ball, Lg Unavailable LORI GUNTER Attending Unavailable BALL, LG E Referring Unavailable LORI GUNTER Attending Unavailable Ball DO, Lg Primary Care Provider [phone] Ball DO, Lg Attending Provider Ball DO, Lg Primary Care Provider Ball DO, Lg Attending Provider Ball DO, Lg Primary Care Provider Ball DO, Lg Attending Provider [phone] Allergies Allergy Classification Reported Allergen(s) Allergy Type Date of Onset Reaction(s) Facility (12 sources) Clindamycin Drug Allergy 05-12-20 23 Unknown Reaction [facility] (12 sources) Penicillin Drug Allergy Unknown [facility] (20 sources) Aspirin Drug Allergy 06-05-20 Unknown, Unknown Reaction [facility] Comment on above: Onset Date: 06/05/20 15 (20 sources) Ciprofloxacin Drug Allergy 06-26-20 15 Unknown, Unknown Reaction [facility] Comment on above: Onset Date: 06/26/20 15 (11 sources) Clindamycin Drug Allergy Unknown upad Other (20 sources) Ibuprofen Drug Allergy 06-05-20 Unknown, Unknown Reaction [facility] Comment on above: Onset Date: 06/05/20 (11 sources) Fluticasone Propionate *NASAL AGENTS - SYSTEMIC AN Propensity to adverse reactions 06-26-20 Unknown upad Other (11 sources) Penicillins Allergy to substance 05-12-20 Unknown Reaction [facility] (11 sources) Fluticasone Propionate *NASAL Allergy to substance 05-12-20 Unknown Reaction [facility] (3 sources) Azithromycin Drug Allergy 04-16-20 Diarrhea [facility] (3 sources) Doxycycline Drug Allergy 04-16-20 Diarrhea [facility] Medications Current Medications Medication Drug Class(es) Dates Sig (Normalized) Sig (Original) aspirin 81 mg delayed release oral tablet (6 sources) Platelet Aggregation Inhibitor, Nonsteroidal Anti-inflammatory Drug [...] 10:11am Start: 08-09-2022 take 1 tablet by branodn th once daily Lisinopril 10 MG lisinopriL [...] Apr, Active azithromycin 250 mg oral tablet (13 sources) Macrolide Antimicrobial Start: 12-06-2024 End: 01-28-2025 [...] 7:52am doxycycline hyclate 100 mg oral capsule (19 sources) Tetracycline-class Drug Start: 11-09-2023 End: 12-23-2023 take 1 capsule by mouth twice daily Doxycycline Hyclate 100 mg capsule Discontinued 100 MG PO Twice daily 14 December 22, 2023 12:00am December 23, 2023 4:09pm nitrofurantoin, macrocrystals 25 mg / nitrofurantoin, monohydrate 75 mg oral capsule (8 sources) Nitrofuran Antibacterial Start: 12-28-2023 End: 02-26-2024 take 1 capsule by mouth twice daily at mealtime Nitrofurantoin Monohyd/M-Cryst (Macrobid) 100 mg capsule Discontinued 100 MG PO Twice daily 10 December 28, 2023 12:00am February 26, 2024 7:52am must administer with a meal/food Problems Active Problems Problem Classification Problem Date Documented Date Episodic/Chronic Abdominal pain (4 sources) Abdominal pain; Translations: [Unspecified abdominal pain] 01-28-2025 Episodic Acute bronchitis (3 sources) Acute bronchitis due to other specified organisms; Translations: [Acute bronchitis] 12-22-2023 Episodic Anxiety disorders (13 sources) Claustrophobia; Translations: [Claustrophobia] Chronic Aortic; peripheral; and visceral artery aneurysms (9 sources) Abdominal aortic aneurysm; Translations: [Abdominal aortic aneurysm (AAA)] 12-13-2024 Chronic Comment on above: US: 3.6cm - 11/2024 Chronic obstructive pulmonary disease and bronchiectasis (20 sources) Bronchiectasis; Translations: [Bronchiectasis, uncomplicated] 11-08-2023 Chronic Conditions associated with dizziness or vertigo (3 sources) Dizziness and giddiness Episodic Deficiency and other anemia (9 sources) Anemia, unspecified; Translations: [Anemia, unspecified] Onset: 08-10-2022 Episodic Deficiency and other anemia (8 sources) Anemia; Translations: [Anemia, unspecified] 02-28-2024 Episodic Disorders of lipid metabolism (20 sources) Hypercholesterolemia; Translations: [Pure hypercholesterolemia, unspecified] Chronic Essential hypertension (20 sources) Essential (primary) hypertension; Translations: [Essential hypertension] Onset: 05-06-2022 Chronic Genitourinary symptoms and ill-defined conditions (1 source) Dysuria Episodic Headache; including migraine (20 sources) Episodic paroxysmal hemicrania; Translations: [Episodic paroxysmal hemicrania, 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 Lymphadenitis (2 sources) Cervical lymphadenopathy; Translations: [Localized enlarged lymph nodes] 05-07-2025 Episodic Malaise and fatigue (2 sources) Other fatigue; Translations: [Other malaise and fatigue] 11-09-2023 Episodic Osteoarthritis (14 sources) Osteoarthritis of knee; Translations: [Unilateral primary osteoarthritis, unspecified knee] 02-26-2024 Chronic Other aftercare (2 sources) Other shelter (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; Translations: [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 CURRENT DRUG THERAPY] Onset: 05-10-2022 Episodic Other connective tissue disease (6 sources) Disease suspected; Translations: [Other symptoms and signs involving the nervous system] 11-09-2023 Episodic Other connective tissue disease (2 sources) Other symptoms and signs involving the nervous system; Translations: [Other symptoms involving nervous and musculoskeletal systems] 11-09-2023 Episodic Other connective tissue disease (4 sources) Suspected respiratory disease; Translations: [Other symptoms and signs involving the nervous system] 11-09-2023 Episodic Other diseases of veins and lymphatics (10 sources) Venous insufficiency of leg; Translations: [Venous [...] Onset: 04-06-2022 Episodic Other lower respiratory disease (20 sources) Nodule of lung; Translations: [Solitary pulmonary nodule] 11-08-2023 Episodic Comment on above: CXR 6mm - 04/2021,CT small nodules - T small nodules, stable - 04/2023 Other non-traumatic joint disorders (14 sources) Pain in left knee; Translations: [Left knee pain] 12-22-2023 Episodic Other nutritional; endocrine; and metabolic disorders (8 sources) Weight decreased; Translations: [Abnormal weight loss] 01-28-2025 Episodic Other screening for suspected conditions (not mental disorders or infectious disease) (1 source) Other specified abnormal findings of blood chemistry Episodic Residual codes; unclassified (1 source) Procedure and treatment not carried out because of patient's decision for unspecified reasons Episodic Residual codes; unclassified (7 sources) Mammogram declined; Translations: [Procedure and treatment not carried out because of patient's decision for unspecified reasons] 05-02-2024 Episodic Residual codes; unclassified (4 sources) FH: Aortic aneurysm; Translations: [Family history [...] occlusion, left eye, stable Chronic Thyroid disorders (12 sources) Thyroid nodule; Translations: [Nontoxic single thyroid nodule] 02-06-2025 Chronic Comment on above: US: right 6mm TR4, l eft 11mm TR2 - 01/2025 Viral infection (2 sources) Viral disease; Translations: [Viral infection, unspecified] 04-16-2025 Episodic Past or Other Problems Problem Classification Problem Date Documented Da te Episodic/Chronic Other lower respiratory disease (4 sources) Hemoptysis; Translations: [HEMOPTYSIS] Onset: 01-06-2022 Episodic Results Test Name Value Interpretation Reference Range Facility Basophils Auto (Bld) [#/Vol] Ordered By: Lg Oviedo on 05-13-2025 Basophils (Bld) [#/Vol] 0.1 10 3/uL 0.0-0.1 [facility] Basophils/100 WBC Auto (Bld) Ordered By: Lg Oviedo on 05-13-2025 Basophils/100 WBC (Bld) 1.0 % 0.2-2.0 [facility] Eosinophils/100 WBC Auto (Bl d)Ordered By: gL Oviedo on 05-13-2025 Eosinophils/100 WBC (Bld) 2.4 % 0.9-7.0 [facility] Erythrocyte distribution wid th Auto (RBC) [Ratio]Ordered By: Lg Oviedo on 05-13-2025 Erythrocyte distribution width (RBC) [Ratio] 12.5 % 11.0-15.0 [facility] Globulin Calc (S) [Mass/Vol] Ordered By: Lg Oviedo 05-13-2025 Globulin (S) [Mass/Vol] 3.6 g/dL [facility] Glomerular filtration rate ( GFR) estimation in non- AmericanOrdered By: Lg Oviedo on 05-13-2025 GFR/1.73 sq M.predicted among non-blacks MDRD (S/P/Bld) [Vol rate/Area] mL/min/{1.73_m2} >=60 mL/min/1.73m 2 [facility] Hematocrit Auto (Bld) [Volum e fraction]Ordered By: Lg Oviedo 05-13-2025 Hematocrit (Bld) [Volume fraction] 36.9 % 36.0-48.0 [facility] Hemoglobin [Mass/volume] in BloodOrdered By: Lg Oviedo 05-13-2025 Hemoglobin (Bld) [Mass/Vol] 12.3 g/dL 12.0-16.0 [facility] Iron binding capacity [Mass/ volume] in Serum or PlasmaOrdered By: Lg Oviedo 05-13-2025 Iron binding capacity [Mass/Vol] 234.0 ug/dL Low 250.0-450.0 [facility] Iron saturation [Mass Fracti on] in Serum or PlasmaOrdered By: Lg Oviedo 05-13-2025 Iron saturation [Mass fraction] 36.8 % [facility] Laboratory - Chemistry and C hemistry - challengeOrdered By: Lg Oviedo 05-13-2025 Albumin [Mass/Vol] 4.0 g/dL 3.4-5.0 [facility] ALP [Catalytic activity/Vol] 133 U/L High 46-116 [facility] ALT [Catalytic activity/Vol] 27 U/L 14-59 [facility] AST [Catalytic activity/Vol] 20 U/L 15-37 [facility] Bilirubin [Mass/Vol] 0.3 mg/dL 0.2-1.0 [facility] Calcium [Mass/Vol] 8.9 mg/dL 8.5-10.1 [facility] Chloride [Moles/Vol] 104 mmol/L 98-107 [facility] CO2 [Moles/Vol] 28.0 mmol/L 21.0-32.0 [facility] Cobalamin (Vitamin B12) [Mass/Vol] 1046 pg/mL 232-1245 [facility] Comment on above: Performed at: [facility] [employer] [address] [id number] Director: Jose Miguel Smith PhD, Phone: [phone] Creatinine [Mass/Vol] 0.67 mg/dL 0.55-1.02 [facility] Ferritin [Mass/Vol] 216.0 ng/mL 8.0-252.0 [facility] GFR/1.73 sq M.predicted MDRD (S/P/Bld) [Vol rate/Area] mL/min/{1.73_m2} >=60 mL/min/1.73m 2 [facility] Glucose [Mass/Vol] 107 mg/dL High 74-106 [facility] Iron [Mass/Vol] 86.0 ug/dL 50.0-170.0 [facility] Potassium [Moles/Vol] 3.7 mmol/L 3.5-5.1 [facility] Protein [Mass/Vol] 7.6 g/dL 6.4-8.2 [facility] Sodium [Moles/Vol] 142 mmol/L 136-145 [facility] TSH Qn 2.782 m[IU]/L 0.358-3.740 [facility] Urea nitrogen [Mass/Vol] 26.0 mg/dL High 7.0-18.0 [facility] Urea nitrogen/Creatinine [Mass ratio] 38.8 mg/mg [facility] Laboratory - Hematology and Cell countsOrdered By: Lg Oviedo on 05-13-2025 Immature granulocytes/100 WBC (Bld) 0.2 % 0.0-0.5 [facility] Leukocytes [#/volume] correc pool for nucleated erythrocytes in Blood by Automated counOrdered By: Lg Oviedo on 05-13-2025 WBC corrected for nucl RBC Auto (Bld) [#/Vol] 4.9 10 3/uL 4.0-11.0 [facility] Lymphocytes Auto (Bld) [#/Vo l]Ordered By: Lg Oviedo on 05-13-2025 Lymphocytes (Bld) [#/Vol] 1.1 10 3/uL Low 1.2-3.8 [facility] Lymphocytes/100 WBC Auto (Bl d)Ordered By: Lg Oviedo on 05-13-2025 Lymphocytes/100 WBC (Bld) 21.7 % 20.5-60.0 [facility] MCH Auto (RBC) [Entitic mass ]Ordered By: Lg Oviedo on 05-13-2025 MCH (RBC) [Entitic mass] 32.6 pg 26.7-34.0 [facility] MCHC Auto (RBC) [Mass/Vol]Or dered By: Lg Oviedo on 05-13-2025 MCHC (RBC) [Mass/Vol] 33.3 g/dL 29.9-35.2 [facility] MCV Auto (RBC) [Entitic vol] Ordered By: Lg Oviedo on 05-13-2025 MCV (RBC) [Entitic vol] 97.9 fL 81.0-99.0 [facility] Monocytes Auto (Bld) [#/Vol] Ordered By: Lg Oviedo on 05-13-2025 Monocytes (Bld) [#/Vol] 0.4 10 3/uL 0.3-0.8 [facility] Monocytes/100 WBC Auto (Bld) Ordered By: Lg Oviedo on 05-13-2025 Monocytes/100 WBC (Bld) 8.7 % 1.7-12.0 [facility] Neutrophils Auto (Bld) [#/Vo l]Ordered By: Lg Oviedo on 05-13-2025 Neutrophils (Bld) [#/Vol] 3.3 10 3/uL 1.4-6.5 [facility] Neutrophils/100 WBC Auto (Bl d)Ordered By: Lg Oviedo on 05-13-2025 Neutrophils/100 WBC (Bld) 66.0 % 43.0-75.0 [facility] No Panel InformationOrdered By: Lg Oviedo on 05-13-2025 Eosinophils # (Auto) 0.1 10 3/uL 0.0-0.7 [facility] Folate 24.30 ng/mL 8.60-58.90 [facility] Immature Granulocyte # (Auto) 0.01 10 3/uL 0.00-0.03 [facility] Platelet mean volume Auto (B ld) [Entitic vol]Ordered By: Lg Oviedo on 05-13-2025 Platelet mean volume (Bld) [Entitic vol] 10.7 fL 9.5-13.5 [facility] Platelets Auto (Bld) [#/Vol] Ordered By: Lg Oviedo on 05-13-2025 Platelets (Bld) [#/Vol] 277 10 3/uL 150-450 [facility] RBC Auto (Bld) [#/Vol]Ordere d By: Lg Oviedo on 05-13-2025 RBC (Bld) [#/Vol] 3.77 10 6/uL Low 4.20-5.40 [facility] Serum or plasma albumin/glob ulin mass ratioOrdered By: Lg Oviedo on 05-13-2025 Albumin/Globulin [Mass ratio] 1.1 {ratio} [facility] Serum or plasma anion gap de terminationOrdered By: Lg Oviedo on 05-13-2025 Anion gap [Moles/Vol] 13.7 mmol/L [facility] Laboratory - Chemistry and C hemistry - challengeOrdered By: Lg Oviedo on 03-26-2025 Free T4 [Mass/Vol] 1.09 ng/dL 0.76-1.46 [facility] TSH Qn 2.958 m[IU]/L 0.358-3.740 [facility] No Panel InformationOrdered By: Lg Oviedo on 03-26-2025 Total Triiodothyronine 119 ng/dL 71-180 [facility] Comment on above: Performed at: [address] [id number] Director: Jose Miguel Smith PhD, Phone: [phone] Basophils Auto (Bld) [#/Vol] Ordered By: Lg Oviedo on 02-06-2025 Basophils (Bld) [#/Vol] 0.0 10 3/uL 0.0-0.1 [facility] Basophils/100 WBC Auto (Bld) Ordered By: Lg Oviedo on 02-06-2025 Basophils/100 WBC (Bld) 0.7 % 0.2-2.0 [facility] Eosinophils/100 WBC Auto (Bl d)Ordered By: Lg Oviedo on 02-06-2025 Eosinophils/100 WBC (Bld) 2.8 % 0.9-7.0 [facility] Erythrocyte distribution wid th Auto (RBC) [Ratio]Ordered By: Lg Oviedo on 02-06-2025 Erythrocyte distribution width (RBC) [Ratio] 12.5 % 11.0-15.0 [facility] Globulin Calc (S) [Mass/Vol] Ordered By: Lg Oviedo on 02-06-2025 Globulin (S) [Mass/Vol] 3.4 g/dL [facility] Glomerular filtration rate ( GFR) estimation in non- AmericanOrdered By: Lg Oviedo on 02-06-2025 GFR/1.73 sq M.predicted among non-blacks MDRD (S/P/Bld) [Vol rate/Area] mL/min/{1.73_m2} >=60 mL/min/1.73m 2 [facility] Hematocrit Auto (Bld) [Volum e fraction]Ordered By: Lg Oviedo on 02-06-2025 Hematocrit (Bld) [Volume fraction] 34.5 % Low 36.0-48.0 [facility] Hemoglobin [Mass/volume] in BloodOrdered By: Lg Oviedo on 02-06-2025 Hemoglobin (Bld) [Mass/Vol] 11.6 g/dL Low 12.0-16.0 [facility] Laboratory - Chemistry and C hemistry - challengeOrdered By: Lg Oviedo on 02-06-2025 Albumin [Mass/Vol] 3.7 g/dL 3.4-5.0 [facility] ALP [Catalytic activity/Vol] 146 U/L High 46-116 [facility] ALT [Catalytic activity/Vol] 23 U/L 14-59 [facility] Amylase [Catalytic activity/Vol] 60 U/L 25-115 [facility] AST [Catalytic activity/Vol] 17 U/L 15-37 [facility] Bilirubin [Mass/Vol] 0.4 mg/dL 0.2-1.0 [facility] Calcium [Mass/Vol] 9.1 mg/dL 8.5-10.1 [facility] Chloride [Moles/Vol] 104 mmol/L 98-107 [facility] CO2 [Moles/Vol] 30.0 mmol/L 21.0-32.0 [facility] Creatinine [Mass/Vol] 0.61 mg/dL 0.55-1.02 [facility] Free T4 [Mass/Vol] 1.19 ng/dL 0.76-1.46 [facility] GFR/1.73 sq M.predicted MDRD (S/P/Bld) [Vol rate/Area] mL/min/{1.73_m2} >=60 mL/min/1.73m 2 [facility] Glucose [Mass/Vol] 100 mg/dL 74-106 [facility] Lipase [Catalytic activity/Vol] 25.0 U/L 16.0-77.0 [facility] Potassium [Moles/Vol] 3.9 mmol/L 3.5-5.1 [facility] Protein [Mass/Vol] 7.1 g/dL 6.4-8.2 [facility] Sodium [Moles/Vol] 143 mmol/L 136-145 [facility] TSH Qn 4.344 m[IU]/L High 0.358-3.740 [facility] Urea nitrogen [Mass/Vol] 18.0 mg/dL 7.0-18.0 [facility] Urea nitrogen/Creatinine [Mass ratio] 29.5 mg/mg [facility] Laboratory - Hematology and Cell countsOrdered By: Lg Oviedo on 02-06-2025 Immature granulocytes/100 WBC (Bld) 0.2 % 0.0-0.5 [facility] Leukocytes [#/volume] correc pool for nucleated erythrocytes in Blood by Automated counOrdered By: Lg Oviedo on 02-06-2025 WBC corrected for nucl RBC Auto (Bld) [#/Vol] 4.3 10 3/uL 4.0-11.0 [facility] Lymphocytes Auto (Bld) [#/Vo l]Ordered By: Lg Oviedo on 02-06-2025 Lymphocytes (Bld) [#/Vol] 1.5 10 3/uL 1.2-3.8 [facility] Lymphocytes/100 WBC Auto (Bl d)Ordered By: Lg Oviedo on 02-06-2025 Lymphocytes/100 WBC (Bld) 35.2 % 20.5-60.0 [facility] MCH Auto (RBC) [Entitic mass ]Ordered By: Lg Oviedo on 02-06-2025 MCH (RBC) [Entitic mass] 33.1 pg 26.7-34.0 [facility] MCHC Auto (RBC) [Mass/Vol]Or dered By: Lg Oviedo on 02-06-2025 MCHC (RBC) [Mass/Vol] 33.6 g/dL 29.9-35.2 [facility] MCV Auto (RBC) [Entitic vol] Ordered By: Lg Oviedo on 02-06-2025 MCV (RBC) [Entitic vol] 98.6 fL 81.0-99.0 [facility] Monocytes Auto (Bld) [#/Vol] Ordered By: Lg Oviedo on 02-06-2025 Monocytes (Bld) [#/Vol] 0.5 10 3/uL 0.3-0.8 [facility] Monocytes/100 WBC Auto (Bld) Ordered By: Lg Oviedo on 02-06-2025 Monocytes/100 WBC (Bld) 10.6 % 1.7-12.0 [facility] Neutrophils Auto (Bld) [#/Vo l]Ordered By: Lg Oviedo on 02-06-2025 Neutrophils (Bld) [#/Vol] 2.2 10 3/uL 1.4-6.5 [facility] Neutrophils/100 WBC Auto (Bl d)Ordered By: Lg Oviedo on 02-06-2025 Neutrophils/100 WBC (Bld) 50.5 % 43.0-75.0 [facility] No Panel InformationOrdered By: Lg Oviedo on 02-06-2025 Eosinophils # (Auto) 0.1 10 3/uL 0.0-0.7 [facility] Immature Granulocyte # (Auto) 0.01 10 3/uL 0.00-0.03 [facility] Total Triiodothyronine 138 ng/dL 71-180 [facility] Comment on above: Performed at: [facility] [address] [id number] Director: Jose Miguel Smith PhD, Phone: [phone] Platelet mean volume Auto (B ld) [Entitic vol]Ordered By: Lg Oviedo on 02-06-2025 Platelet mean volume (Bld) [Entitic vol] 11.4 fL 9.5-13.5 [facility] Platelets Auto (Bld) [#/Vol] Ordered By: Lg Oviedo on 02-06-2025 Platelets (Bld) [#/Vol] 282 10 3/uL 150-450 [facility] RBC Auto (Bld) [#/Vol]Ordere d By: Lg Oviedo on 02-06-2025 RBC (Bld) [#/Vol] 3.50 10 6/uL Low 4.20-5.40 [facility] Serum or plasma albumin/glob ulin mass ratioOrdered By: Lg Oviedo on 02-06-2025 Albumin/Globulin [Mass ratio] 1.1 {ratio} [facility] Serum or plasma anion gap de terminationOrdered By: Lg Oviedo on 02-06-2025 Anion gap [Moles/Vol] 12.9 mmol/L [facility] Basophils Auto (Bld) [#/Vol] on 10-31-2024 Basophils (Bld) [#/Vol] Automated basoph il count 0.0-0.1 [facility] Basophils/100 WBC Auto (Bld) on 10-31-2024 Basophils/100 WBC (Bld) Automated basoph il % 0.2-2.0 [facility] Eosinophils/100 WBC Auto (Bl d)on 10-31-2024 Eosinophils/100 WBC (Bld) Automated eosinophil % 0.9-7.0 [facility] Erythrocyte distribution wid th Auto (RBC) [Ratio]on 10-31-2024 Erythrocyte distribution width (RBC) [Ratio] Erythrocyte distribution width [Ratio] by Automated count 11.0-15.0 [facility] Hematocrit Auto (Bld) [Volum e fraction]on 10-31-2024 Hematocrit (Bld) [Volume fraction] Hematocrit [Volume Fraction] of Blood by Automated count Low 36.0-48.0 [facility] Hemoglobin [Mass/volume] in Bloodon 10-31-2024 Hemoglobin (Bld) [Mass/Vol] Hemoglobin [Mass/volume] in Blood Low 12.0-16.0 [facility] Laboratory - Hematology and Cell countson 10-31-2024 Immature granulocytes/100 WBC (Bld) 0.0 % 0.0-0.5 [facility] Leukocytes [#/volume] correc pool for nucleated erythrocytes in Blood by Automated counon 10-31-2024 WBC corrected for nucl RBC Auto (Bld) [#/Vol] Leukocytes [#/volume] corrected for nucleated erythrocytes in Blood by Automated coun 4.0-11.0 [facility] Lymphocytes Auto (Bld) [#/Vo l]on 10-31-2024 Lymphocytes (Bld) [#/Vol] Lymphocytes [#/volume] in Blood by Automated count 1.2-3.8 [facility] Lymphocytes/100 WBC Auto (Bl d)on 10-31-2024 Lymphocytes/100 WBC (Bld) Lymphocytes/100 leukocytes in Blood by Automated count 20.5-60.0 [facility] MCH Auto (RBC) [Entitic mass ]on 10-31-2024 MCH (RBC) [Entitic mass] MCH [Entitic mass] by Automated count 26.7-34.0 [facility] MCHC Auto (RBC) [Mass/Vol]on 10-31-2024 MCHC (RBC) [Mass/Vol] MCHC [Mass/volume] by Automated count 29.9-35.2 [facility] MCV Auto (RBC) [Entitic vol] on 10-31-2024 MCV (RBC) [Entitic vol] MCV [Entitic volume] by Automated count High 81.0-99.0 [facility] Monocytes Auto (Bld) [#/Vol] on 10-31-2024 Monocytes (Bld) [#/Vol] Automated blood monocyte count 0.3-0.8 [facility] Monocytes/100 WBC Auto (Bld) on 10-31-2024 Monocytes/100 WBC (Bld) Automated monocy te % 1.7-12.0 [facility] Neutrophils Auto (Bld) [#/Vo l]on 10-31-2024 Neutrophils (Bld) [#/Vol] Neutrophils [#/volume] in Blood by Automated count 1.4-6.5 [facility] Neutrophils/100 WBC Auto (Bl d)on 10-31-2024 Neutrophils/100 WBC (Bld) Automated neutrophil % 43.0-75.0 [facility] No Panel Informationon 10-31 Eosinophils # (Auto) 0.2 10 3/uL 0.0-0.7 [facility] Immature Granulocyte # (Auto) 0.00 10 3/uL 0.00-0.03 [facility] Platelet mean volume Auto (B ld) [Entitic vol]on 10-31-2024 Platelet mean volume (Bld) [Entitic vol] Platelet mean volume [Entitic volume] in Blood by Automated count 9.5-13.5 [facility] Platelets Auto (Bld) [#/Vol] on 10-31-2024 Platelets (Bld) [#/Vol] Platelets [#/volume] in Blood by Automated count 150-450 [facility] RBC Auto (Bld) [#/Vol]on RBC (Bld) [#/Vol] Erythrocytes [#/volume] in Blood by Automated count Low 4.20-5.40 [facility] Basophils Auto (Bld) [#/Vol] on 04-27-2024 Basophils (Bld) [#/Vol] 0.0 10 3/uL 0.0-0.1 [facility] Basophils/100 WBC Auto (Bld) on 04-27-2024 Basophils/100 WBC (Bld) 0.9 % 0.2-2.0 [facility] Eosinophils/100 WBC Auto (Bl d)on 04-27-2024 Eosinophils/100 WBC (Bld) 2.6 % 0.9-7.0 [facility] Erythrocyte distribution wid th Auto (RBC) [Ratio]on 04-27-2024 Erythrocyte distribution width (RBC) [Ratio] 12.6 % 11.0-15.0 [facility] Hematocrit Auto (Bld) [Volum e fraction]on 04-27-2024 Hematocrit (Bld) [Volume fraction] 34.6 % Low 36.0-48.0 [facility] Hemoglobin [Mass/volume] in Bloodon 04-27-2024 Hemoglobin (Bld) [Mass/Vol] 11.7 g/dL Low 12.0-16.0 [facility] Iron binding capacity [Mass/ volume] in Serum or Plasmaon 04-27-2024 Iron binding capacity [Mass/Vol] 232.0 ug/dL Low 250.0-450.0 [facility] Iron saturation [Mass Fracti on] in Serum or Plasmaon 04-27-2024 Iron saturation [Mass fraction] 36.6 % [facility] Laboratory - Chemistry and C hemistry - challengeon 04-27-2024 Cobalamin (Vitamin B12) [Mass/Vol] 947 pg/mL 232-1245 [facility] Comment on above: Performed at: [facility] [address] [id number] Director: Jose Miguel Smith PhD, Phone: [phone] Ferritin [Mass/Vol] 218.0 ng/mL 8.0-252.0 [facility] Iron [Mass/Vol] 85.0 ug/dL 50.0-170.0 [facility] Laboratory - Hematology and Cell countson 04-27-2024 Immature granulocytes/100 WBC (Bld) 0.2 % 0.0-0.5 [facility] Leukocytes [#/volume] correc pool for nucleated erythrocytes in Blood by Automated counon 04-27-2024 WBC corrected for nucl RBC Auto (Bld) [#/Vol] 4.6 10 3/uL 4.0-11.0 [facility] Lymphocytes Auto (Bld) [#/Vo l]on 04-27-2024 Lymphocytes (Bld) [#/Vol] 1.1 10 3/uL Low 1.2-3.8 [facility] Lymphocytes/100 WBC Auto (Bl d)on 04-27-2024 Lymphocytes/100 WBC (Bld) 24.5 % 20.5-60.0 [facility] MCH Auto (RBC) [Entitic mass ]on 04-27-2024 MCH (RBC) [Entitic mass] 33.1 pg 26.7-34.0 [facility] MCHC Auto (RBC) [Mass/Vol]on 04-27-2024 MCHC (RBC) [Mass/Vol] 33.8 g/dL 29.9-35.2 [facility] MCV Auto (RBC) [Entitic vol] on 04-27-2024 MCV (RBC) [Entitic vol] 98.0 fL 81.0-99.0 [facility] Monocytes Auto (Bld) [#/Vol] on 04-27-2024 Monocytes (Bld) [#/Vol] 0.4 10 3/uL 0.3-0.8 [facility] Monocytes/100 WBC Auto (Bld) on 04-27-2024 Monocytes/100 WBC (Bld) 9.5 % 1.7-12.0 [facility] Neutrophils Auto (Bld) [#/Vo l]on 04-27-2024 Neutrophils (Bld) [#/Vol] 2.9 10 3/uL 1.4-6.5 [facility] Neutrophils/100 WBC Auto (Bl d)on 04-27-2024 Neutrophils/100 WBC (Bld) 62.3 % 43.0-75.0 [facility] No Panel Informationon 04-27 Eosinophils # (Auto) 0.1 10 3/uL 0.0-0.7 [facility] Immature Granulocyte # (Auto) 0.01 10 3/uL 0.00-0.03 [facility] Platelet mean volume Auto (B ld) [Entitic vol]on 04-27-2024 Platelet mean volume (Bld) [Entitic vol] 10.4 fL 9.5-13.5 [facility] Platelets Auto (Bld) [#/Vol] on 04-27-2024 Platelets (Bld) [#/Vol] 289 10 3/uL 150-450 [facility] RBC Auto (Bld) [#/Vol]on RBC (Bld) [#/Vol] 3.53 10 6/uL Low 4.20-5.40 [facility] Basophils Auto (Bld) [#/Vol] on 02-29-2024 Basophils (Bld) [#/Vol] 0.0 10 3/uL 0.0-0.1 [facility] Basophils/100 WBC Auto (Bld) on 02-29-2024 Basophils/100 WBC (Bld) 0.9 % 0.2-2.0 [facility] Eosinophils/100 WBC Auto (Bl d)on 02-29-2024 Eosinophils/100 WBC (Bld) 4.4 % 0.9-7.0 [facility] Erythrocyte distribution wid th Auto (RBC) [Ratio]on 02-29-2024 Erythrocyte distribution width (RBC) [Ratio] 12.4 % 11.0-15.0 [facility] Hematocrit Auto (Bld) [Volum e fraction]on 02-29-2024 Hematocrit (Bld) [Volume fraction] 34.2 % Low 36.0-48.0 [facility] Hemoglobin [Mass/volume] in Bloodon 02-29-2024 Hemoglobin (Bld) [Mass/Vol] 11.4 g/dL Low 12.0-16.0 [facility] Iron binding capacity [Mass/ volume] in Serum or Plasmaon 02-29-2024 Iron binding capacity [Mass/Vol] 237.0 ug/dL Low 250.0-450.0 [facility] Iron saturation [Mass Fracti on] in Serum or Plasmaon 02-29-2024 Iron saturation [Mass fraction] 46.0 % [facility] Laboratory - Chemistry and C hemistry - challengeon 02-29-2024 Cobalamin (Vitamin B12) [Mass/Vol] 800.0 pg/mL 193.0-986.0 [facility] Ferritin [Mass/Vol] 206.0 ng/mL 8.0-252.0 [facility] Iron [Mass/Vol] 109.0 ug/dL 50.0-170.0 [facility] Laboratory - Hematology and Cell countson 02-29-2024 Immature granulocytes/100 WBC (Bld) 0.2 % 0.0-0.5 [facility] Leukocytes [#/volume] correc pool for nucleated erythrocytes in Blood by Automated counon 02-29-2024 WBC corrected for nucl RBC Auto (Bld) [#/Vol] 4.6 10 3/uL 4.0-11.0 [facility] Lymphocytes Auto (Bld) [#/Vo l]on 02-29-2024 Lymphocytes (Bld) [#/Vol] 1.2 10 3/uL 1.2-3.8 [facility] Lymphocytes/100 WBC Auto (Bl d)on 02-29-2024 Lymphocytes/100 WBC (Bld) 26.9 % 20.5-60.0 [facility] MCH Auto (RBC) [Entitic mass ]on 02-29-2024 MCH (RBC) [Entitic mass] 32.6 pg 26.7-34.0 [facility] MCHC Auto (RBC) [Mass/Vol]on 02-29-2024 MCHC (RBC) [Mass/Vol] 33.3 g/dL 29.9-35.2 [facility] MCV Auto (RBC) [Entitic vol] on 02-29-2024 MCV (RBC) [Entitic vol] 97.7 fL 81.0-99.0 [facility] Monocytes Auto (Bld) [#/Vol] on 02-29-2024 Monocytes (Bld) [#/Vol] 0.5 10 3/uL 0.3-0.8 [facility] Monocytes/100 WBC Auto (Bld) on 02-29-2024 Monocytes/100 WBC (Bld) 11.1 % 1.7-12.0 [facility] Neutrophils Auto (Bld) [#/Vo l]on 02-29-2024 Neutrophils (Bld) [#/Vol] 2.6 10 3/uL 1.4-6.5 [facility] Neutrophils/100 WBC Auto (Bl d)on 02-29-2024 Neutrophils/100 WBC (Bld) 56.5 % 43.0-75.0 [facility] No Panel Informationon 02-28 Eosinophils # (Auto) 0.2 10 3/uL 0.0-0.7 [facility] Immature Granulocyte # (Auto) 0.01 10 3/uL 0.00-0.03 [facility] Platelet mean volume Auto (B ld) [Entitic vol]on 02-29-2024 Platelet mean volume (Bld) [Entitic vol] 11.3 fL 9.5-13.5 [facility] Platelets Auto (Bld) [#/Vol] on 02-29-2024 Platelets (Bld) [#/Vol] 283 10 3/uL 150-450 [facility] RBC Auto (Bld) [#/Vol]on RBC (Bld) [#/Vol] 3.50 10 6/uL Low 4.20-5.40 [facility] Laboratory - Chemistry and C hemistry - challengeon 12-28-2023 Bilirubin Ql (U) Negative [facility] Glucose (U) [Mass/Vol] [facility] Ketones Ql (U) Negative [facility] pH (U) 6.0 [pH] [facility] Specific gravity (U) [Rel density] 1.015 [facility] Urobilinogen (U) [Mass/Vol] 0.2 mg/dL [facility] Laboratory - Specimen inform ationon 12-28-2023 Appearance (U) Cloudy [facility] Color (U) Yellow [facility] Laboratory - Urinalysison Leukocyte esterase Test strip Ql (U) 2+ [facility] Nitrite Ql (U) Positive [facility] Protein Ql (U) 2+ [facility] No Panel Informationon 12-27 Urine Occult Blood 2+ [facility] Basophils Auto (Bld) [#/Vol] on 11-09-2023 Basophils (Bld) [#/Vol] 0.0 10 3/uL 0.0-0.1 [facility] Basophils/100 WBC Auto (Bld) on 11-09-2023 Basophils/100 WBC (Bld) 0.8 % 0.2-2.0 [facility] Eosinophils/100 WBC Auto (Bl d)on 11-09-2023 Eosinophils/100 WBC (Bld) 3.6 % 0.9-7.0 [facility] Erythrocyte distribution wid th Auto (RBC) [Ratio]on 11-09-2023 Erythrocyte distribution width (RBC) [Ratio] 12.3 % 11.0-15.0 [facility] Estimated glomerular filtrat ion rate (GFR) non- Americanon 11-09-2023 GFR/1.73 sq M.predicted among non-blacks MDRD (S/P/Bld) [Vol rate/Area] mL/min/{1.73_m2} >=60 [facility] Globulin Calc (S) [Mass/Vol] on 11-09-2023 Globulin (S) [Mass/Vol] 3.2 g/dL [facility] Hematocrit Auto (Bld) [Volum e fraction]on 11-09-2023 Hematocrit (Bld) [Volume fraction] 36.2 % 36.0-48.0 [facility] Hemoglobin [Mass/volume] in Bloodon 11-09-2023 Hemoglobin (Bld) [Mass/Vol] 11.9 g/dL 12.0-16.0 [facility] Laboratory - Chemistry and C hemistry - challengeon 11-09-2023 Albumin [Mass/Vol] 3.7 g/dL 3.4-5.0 [facility] ALP [Catalytic activity/Vol] 152 U/L 46-116 [facility] ALT [Catalytic activity/Vol] 20 U/L 14-59 [facility] AST [Catalytic activity/Vol] 15 U/L 15-37 [facility] Bilirubin [Mass/Vol] 0.2 mg/dL 0.2-1.0 [facility] Calcium [Mass/Vol] 9.1 mg/dL 8.5-10.1 [facility] Chloride [Moles/Vol] 105 mmol/L 98-107 [facility] CO2 [Moles/Vol] 30.6 mmol/L 21.0-32.0 [facility] Creatinine [Mass/Vol] 0.83 mg/dL 0.55-1.02 [facility] GFR/1.73 sq M.predicted MDRD (S/P/Bld) [Vol rate/Area] mL/min/{1.73_m2} >=60 [facility] Glucose [Mass/Vol] 107 mg/dL 74-106 [facility] Potassium [Moles/Vol] 3.4 mmol/L 3.5-5.1 [facility] Protein [Mass/Vol] 6.9 g/dL 6.4-8.2 [facility] Sodium [Moles/Vol] 142 mmol/L 136-145 [facility] TSH Qn 1.941 m[IU]/L 0.358-3.740 [facility] Urea nitrogen [Mass/Vol] 21.0 mg/dL 7.0-18.0 [facility] Urea nitrogen/Creatinine [Mass ratio] 25.3 mg/mg [facility] Laboratory - Hematology and Cell countson 11-09-2023 Immature granulocytes/100 WBC (Bld) 0.2 % 0.0-0.5 [facility] Leukocytes [#/volume] correc pool for nucleated erythrocytes in Blood by Automated counon 11-09-2023 WBC corrected for nucl RBC Auto (Bld) [#/Vol] 5.1 10 3/uL 4.0-11.0 [facility] Lymphocytes Auto (Bld) [#/Vo l]on 11-09-2023 Lymphocytes (Bld) [#/Vol] 1.4 10 3/uL 1.2-3.8 [facility] Lymphocytes/100 WBC Auto (Bl d)on 11-09-2023 Lymphocytes/100 WBC (Bld) 27.2 % 20.5-60.0 [facility] MCH Auto (RBC) [Entitic mass ]on 11-09-2023 MCH (RBC) [Entitic mass] 32.5 pg 26.7-34.0 [facility] MCHC Auto (RBC) [Mass/Vol]on 11-09-2023 MCHC (RBC) [Mass/Vol] 32.9 g/dL 29.9-35.2 [facility] MCV Auto (RBC) [Entitic vol] on 11-09-2023 MCV (RBC) [Entitic vol] 98.9 fL 81.0-99.0 [facility] Monocytes Auto (Bld) [#/Vol] on 11-09-2023 Monocytes (Bld) [#/Vol] 0.5 10 3/uL 0.3-0.8 [facility] Monocytes/100 WBC Auto (Bld) on 11-09-2023 Monocytes/100 WBC (Bld) 9.5 % 1.7-12.0 [facility] Neutrophils Auto (Bld) [#/Vo l]on 11-09-2023 Neutrophils (Bld) [#/Vol] 3.0 10 3/uL 1.4-6.5 [facility] Neutrophils/100 WBC Auto (Bl d)on 11-09-2023 Neutrophils/100 WBC (Bld) 58.7 % 43.0-75.0 [facility] No Panel Informationon 11-08 Eosinophils # (Auto) 0.2 10 3/uL 0.0-0.7 [facility] Immature Granulocyte # (Auto) 0.01 10 3/uL 0.00-0.03 [facility] Platelet mean volume Auto (B ld) [Entitic vol]on 11-09-2023 Platelet mean volume (Bld) [Entitic vol] 11.2 fL 9.5-13.5 [facility] Platelets Auto (Bld) [#/Vol] on 11-09-2023 Platelets (Bld) [#/Vol] 336 10 3/uL 150-450 [facility] RBC Auto (Bld) [#/Vol]on RBC (Bld) [#/Vol] 3.66 10 6/uL 4.20-5.40 [facility] Serum or plasma albumin/glob ulin mass ratioon 11-09-2023 Albumin/Globulin [Mass ratio] 1.2 {ratio} [facility] Serum or plasma anion gap de terminationon 11-09-2023 Anion gap [Moles/Vol] 9.8 mmol/L [facility] Laboratory - Chemistry and C hemistry - challengeon 10-14-2023 Bilirubin Ql (U) Negative [facility] Glucose (U) [Mass/Vol] Negative [facility] Ketones Ql (U) Negative [facility] pH (U) 6.5 [pH] [facility] Specific gravity (U) [Rel density] 1.010 [facility] Urobilinogen (U) [Mass/Vol] 0.2 mg/dL [facility] Laboratory - Specimen inform ationon 10-14-2023 Appearance (U) Clear [facility] Color (U) Yellow [facility] Laboratory - Urinalysison Leukocyte esterase Test strip Ql (U) Negative [facility] Nitrite Ql (U) Negative [facility] Protein Ql (U) Trace [facility] No Panel Informationon 10-14 Urine Occult Blood Negative [facility] Urinalysis - DIPSTICKon 05-23 Appearance (U) cloudy [employer] Other Bilirubin Ql (U) Negative [employer] Other Color (U) yellow [employer] Other Glucose Ql (U) Negative [employer] Other Hemoglobin Ql (U) 6.5 [employer] Other Ketones Ql (U) Negative [employer] Other Leukocyte esterase Test strip Ql (U) large [employer] Other Nitrite Ql (U) Negative [employer] Other pH (U) 5 [pH] [employer] Other Protein Ql (U) 17 [employer] Other Specific gravity (U) [Rel density] 1.020 [employer] Other Urobilinogen (U) [Mass/Vol] Negative [employer] Other Urinalysis - DIPSTICK [employer] Other CBC AUTO DIFFon 08-10-2022 BASO # 0.0 103/ul Normal 0.0-0.1 [facility] Comment on above: Performed By: #### C BC #### [facility] [address] [place] [address] Dr. Bo Brown Basophils/100 WBC (Bld) 0.9 % Normal 0.2-2.0 [facility] Comment on above: Performed By: #### C BC #### [facility] [address] [place] [address] Dr. Bo Brown EO # 0.1 103/ul Normal 0.0-0.7 [facility] Comment on above: Performed By: #### C BC #### [facility] [address] [place] [address] Dr. Bo Brown Eosinophils/100 WBC (Bld) 2.1 % Normal 0.9-7.0 [facility] Comment on above: Performed By: #### C BC #### [facility] [address] [place] [address] Dr. Bo Brown Erythrocyte distribution width (RBC) [Ratio] 12.2 % Normal 11.0-15.0 [facility] Comment on above: Performed By: #### C BC #### [facility] [address] [place] [address] Dr. Bo Brown Hematocrit (Bld) [Volume fraction] 34.1 % Critically low 36.0-48.0 [facility] Comment on above: Performed By: #### C BC #### [facility] [address] [place] [address] Dr. Bo Brown Hemoglobin (Bld) [Mass/Vol] 11.3 g/dL Critically low 12.0-16.0 [facility] Comment on above: Performed By: #### C BC #### [facility] [address] [place] [address] Dr. Bo Brown IG # 0.01 10e3/ul Normal 0.00-0.03 [facility] Comment on above: Performed By: #### C BC #### [facility] [address] [place] [address] Dr. Bo Brown IG % 0.2 % Normal 0.0-0.5 [facility] Comment on above: Performed By: #### C BC #### [facility] [address] [place] [address] Dr. Bo Brown LYMPH # 1.2 103/ul Normal 1.2-3.8 [facility] Comment on above: Performed By: #### C BC #### [facility] [address] [place] [address] Dr. Bo Brown Lymphocytes/100 WBC (Bld) 28.8 % Normal 20.5-60.0 [facility] Comment on above: Performed By: #### C BC #### [facility] [address] [place] [address] Dr. Bo Brown MANUAL DIFF REQ NO Normal [facility] Comment on above: Performed By: #### C BC #### [facility] [address] [place] [address] Dr. Bo Brown MCH (RBC) [Entitic mass] 32.6 pg Normal 26.7-34.0 [facility] Comment on above: Performed By: #### C BC #### [facility] [address] [place] [address] Dr. Bo Brown MCHC (RBC) [Mass/Vol] 33.1 g/dL Normal 29.9-35.2 [facility] Comment on above: Performed By: #### C BC #### [facility] [address] [place] [address] Dr. Bo Brown MCV (RBC) [Entitic vol] 98.3 fL Normal 81.0-99.0 [facility] Comment on above: Performed By: #### C BC #### [facility] [address] [place] [address] Dr. Bo Brown MONO # 0.4 103/ul Normal 0.3-0.8 [facility] Comment on above: Performed By: #### C BC #### [facility] [address] [place] [address] Dr. Bo Brown Monocytes/100 WBC (Bld) 9.7 % Normal 1.7-12.0 [facility] Comment on above: Performed By: #### C BC #### [facility] [address] [place] [address] Dr. Bo Brown NEUT # 2.5 103/ul Normal 1.4-6.5 [facility] Comment on above: Performed By: #### C BC #### [facility] [address] [place] [address] Dr. Bo Brown Neutrophils/100 WBC (Bld) 58.3 % Normal 43.0-75.0 [facility] Comment on above: Performed By: #### C BC #### [facility] [address] [place] [address] Dr. Bo Brown Platelet mean volume (Bld) [Entitic vol] 10.5 fL Normal 9.5-13.5 [facility] Comment on above: Performed By: #### C BC #### [facility] [address] [place] [address] Dr. Bo Brown PLT 294 103/ul Normal 150-450 [facility] Comment on above: Performed By: #### C BC #### [facility] [address] [place] [address] Dr. Bo Brown RBC 3.47 106/ul Critically low 4.20-5.40 [facility] Comment on above: Performed By: #### C BC #### [facility] [address] [place] [address] Dr. Bo Brown WBC 4.2 103/ul Normal 4.0-11.0 [facility] Comment on above: Performed By: #### C BC #### [facility] [address] [place] [address] Dr. Bo Brown IRON AND TIBCon 08-10-2022 % SATURATION 41.4 % Normal [facility] Comment on above: Performed By: #### B 12FOL, FETIBC #### [facility] [address] [place] [address] Dr. Bo Brown Iron [Mass/Vol] 91.0 ug/dL Normal 50.0-170.0 [facility] Comment on above: Performed By: #### B 12FOL, FETIBC #### [facility] [address] [place] [address] Dr. Bo Brown TIBC DIRECT 220.0 ug/dL Critically low 250.0-450.0 [facility] Comment on above: Performed By: #### B 12FOL, FETIBC #### [facility] [address] [place] [address] Dr. Bo Brown VIT B12 AND FOLATEon 022 Cobalamin (Vitamin B12) [Mass/Vol] 987.0 pg/mL Critically high 193.0-986.0 [facility] Comment on above: Performed By: #### B 12FOL, FETIBC #### [facility] [address] [place] [address] Dr. Bo Brown FOLATE 17.70 ng/mL Normal 8.60-58.90 [facility] Comment on above: Performed By: #### B 12FOL, FETIBC #### [facility] [address] [place] [address] Dr. Bo Brown CBC AUTO DIFFon 05-06-2022 BASO # 0.0 103/ul Normal 0.0-0.1 [facility] Comment on above: Performed By: #### C BC #### [facility] [address] [place] [address] Dr. Bo Brown Basophils/100 WBC (Bld) 0.7 % Normal 0.2-2.0 [facility] Comment on above: Performed By: #### C BC #### [facility] [address] [place] [address] Dr. Bo Brown EO # 0.1 103/ul Normal 0.0-0.7 [facility] Comment on above: Performed By: #### C BC #### [facility] [address] [place] [address] Dr. Bo Brown Eosinophils/100 WBC (Bld) 2.6 % Normal 0.9-7.0 [facility] Comment on above: Performed By: #### C BC #### [facility] [address] [place] [address] Dr. Bo Brown Erythrocyte distribution width (RBC) [Ratio] 12.7 % Normal 11.0-15.0 [facility] Comment on above: Performed By: #### C BC #### [facility] [address] [address] [address] Bo Brown Hematocrit (Bld) [Volume fraction] 35.2 % Critically low 36.0-48.0 [facility] Comment on above: Performed By: #### C BC #### [facility] [address] [address] [address] Bo Brown Hemoglobin (Bld) [Mass/Vol] 11.6 g/dL Critically low 12.0-16.0 [facility] Comment on above: Performed By: #### C BC #### [facility] [address] [address] [address] Bo Brown IG # 0.02 10e3/ul Normal 0.00-0.03 [facility] Comment on above: Performed By: #### C BC #### [facility] [address] [place] [address] Dr. Bo Brown IG % 0.5 % Normal 0.0-0.5 [facility] Comment on above: Performed By: #### C BC #### [facility] [address] [place] [address] Dr. Bo Brown LYMPH # 1.1 103/ul Critically low 1.2-3.8 [facility] Comment on above: Performed By: #### C BC #### [facility] [address] [place] [address] Dr. Bo Brown Lymphocytes/100 WBC (Bld) 25.8 % Normal 20.5-60.0 [facility] Comment on above: Performed By: #### C BC #### [facility] [address] [place] [address] Dr. Bo Brown MANUAL DIFF REQ NO Normal [facility] Comment on above: Performed By: #### C BC #### [facility] [address] [place] [address] Dr. Bo Brown MCH (RBC) [Entitic mass] 32.6 pg Normal 26.7-34.0 [facility] Comment on above: Performed By: #### C BC #### [facility] [address] [address] [address] Bo Brown MCHC (RBC) [Mass/Vol] 33.0 g/dL Normal 29.9-35.2 [facility] Comment on above: Performed By: #### C BC #### [facility] [address] [address] [address] Bo Brown MCV (RBC) [Entitic vol] 98.9 fL Normal 81.0-99.0 [facility] Comment on above: Performed By: #### C BC #### [facility] [address] [address] [address] Bo Brown MONO # 0.4 103/ul Normal 0.3-0.8 [facility] Comment on above: Performed By: #### C BC #### [facility] [address] [place] [address] Dr. Bo Brown Monocytes/100 WBC (Bld) 9.5 % Normal 1.7-12.0 [facility] Comment on above: Performed By: #### C BC #### [facility] [address] [place] [address] Dr. Bo Brown NEUT # 2.6 103/ul Normal 1.4-6.5 [facility] Comment on above: Performed By: #### C BC #### [facility] [address] [place] [address] Dr. Bo Brown Neutrophils/100 WBC (Bld) 60.9 % Normal 43.0-75.0 [facility] Comment on above: Performed By: #### C BC #### [facility] [address] [place] [address] Dr. Bo Brown Platelet mean volume (Bld) [Entitic vol] 10.7 fL Normal 9.5-13.5 [facility] Comment on above: Performed By: #### C BC #### [facility] [address] [place] [address] Dr. Bo Brown PLT 284 103/ul Normal 150-450 [facility] Comment on above: Performed By: #### C BC #### [facility] [address] [address] [address] Bo Brown RBC 3.56 106/ul Critically low 4.20-5.40 [facility] Comment on above: Performed By: #### C BC #### [facility] [address] [place] [address] Dr. Bo Brown WBC 4.3 103/ul Normal 4.0-11.0 [facility] Comment on above: Performed By: #### C BC #### [facility] [address] [address] [address] Bo Brown PROF CHEM 8 (BAS METB)on Anion gap [Moles/Vol] 9.7 mmol/L Normal [facility] Comment on above: Performed By: #### B MP #### [facility] [address] [place] [address] Dr. Bo Brown Calcium [Mass/Vol] 8.8 mg/dL Normal 8.5-10.[address] [facility] Comment on above: Performed By: #### B MP #### [facility] [address] [place] [address] Dr. Bo Brown Chloride [Moles/Vol] 103 mmol/L Normal 98-107 [facility] Comment on above: Performed By: #### B MP #### [facility] [address] [place] [address] Dr. Bo Brown CO2 [Moles/Vol] 28.9 mmol/L Normal 21.0-32.0 [facility] Comment on above: Performed By: #### B MP #### [facility] [address] [place] [address] Dr. Bo Brown Creatinine [Mass/Vol] 0.69 mg/dL Normal 0.55-1.02 [facility] Comment on above: Performed By: #### B MP #### [facility] [address] [place] [address] Dr. Bo Brown EGFR-AF WALLISIAN >60 Normal >=60 [facility] [place] Comment on above: Performed By: #### B MP #### [facility] [address] [place] [address] Dr. Bo Brown EGFR-NON AF WALLISIAN >60 Normal >=60 [facility] Comment on above: Performed By: #### B MP #### [facility] [address] [address] [address] Bo Brown Glucose [Mass/Vol] 111 mg/dL Critically high 74-106 [facility] Comment on above: Performed By: #### B MP #### [facility] [address] [address] [address] Bo Brown Potassium [Moles/Vol] 3.6 mmol/L Normal 3.5-5.1 [facility] Comment on above: Performed By: #### B MP #### [facility] [address] [address] [address] Bo Brown Sodium [Moles/Vol] 138 mmol/L Normal 136-145 [facility] Comment on above: Performed By: #### B MP #### [facility] [address] [address] [address] Bo Brown Urea nitrogen [Mass/Vol] 15.0 mg/dL Normal 7.0-18.0 [facility] Comment on above: Performed By: #### B MP #### [facility] [address] [address] [address] Bo Brown Urea nitrogen/Creatinine [Mass ratio] 21.7 mg/mg Normal [facility] Comment on above: Performed By: #### B MP #### [facility] [address] [place] [address] CHEST WO CONon [...] TRIANA Date: 2022-04-07 06:28 Normal [facility] XR CHEST 2 Von 01-06-2022 XR CHEST [...] MAGANA Date: 2022-01-06 09:15 Normal [facility] Consent for Treatmenton 10-0 Consent for Treatment [id number]:127 Normal [facility] Coding Summary.on 05-18-2021 Coding Summary. CD:[id number] 6ZCa6xFn+PGhlYWQ+P F0PXVOqU12epRUuiI0 GE0yHEC8HPYVWQOKIF I2UKY5cjHU8OEwzN4P ybiAv OkkmzCQxOS66FKj5IP K8xOapMYitiD7rwUMx R1r0XxMlOV37oM41LN uqFDDmGfX8QxOwinhh bWFy A4kxCgOdlOCmShd+PH RhYmxlIHdpZHRoPScx FRCuPaEjhAhtKJ8lOq 9yZGVyLWNvbGxhcHNl OiBj c5wlMLSiTGblMY6vlT fnZ1ZwdMW2YECir4a9 Em46qCZ+FBWxADW6mZ ltLMpne549MxMye8qg IDM3 cUMwSFqzWHE9D27cj3 E1LSKjZXHlWBN3xUN4 tG9brMsyiguyZ2FcuH LmOiE2NEH9qRZxtX7t bGln dubkfZ8hUis+Q09ESU 7GLLMJJT1LVwq3J4My PjwvdHI+IW74YNRcCE 31pQLmlITag3lljMf9 JzEw OQHiXHJ9vNqrAScfs4 NaGSQcK06bxTEgi5W7 IGNvbGxhcHNlOyBlbX R6sT5pGSnthdass5fr dzsn Qiwfn1uweh90xL59G5 0aCYpdAOFdLEL6OHEa OSZdyAivae6yyT1cRt 8+IBxyn7tba4mokQo1 IjIw IUJrjgYikIsmBTD1g1 HhGs51Y6FrqYuqm7Mi Pda7it41pLCra6L1zI N0RTwsWWLnrK4aCVvl ZnQ6 RGGpQdWtwV85lOLcNE qcWv5dzYnhuOniZJ1c YVExqzroPBPshQ3nVG BfmJKjaUizBK8iYJTk bjtm c729VpPnQZK9ZPWhmC BoQ3QldU8xGcOfZTDg LLAjB7JtyFNbBMcfN1 49AVytVpR9TWBfqsFb Y2Fs QDGspFurZfO7h5X2Lk 3Yh9SdbyiiTJQ6MWdu TNG1KhT4SdAwWmB0J6 BdLbl3EJOetMohIK3d J3Bh VJDvolobqgbcvHR1ZU LxCKHlmA17iODzBOze Lv2iw4C7n113DBMjWX WctG27Zu8xjWeqMNJn dCBU rN9esisrn8otgewnFu MpDBNhCYj8VSe0ZFWd tGbjSpAqYRE4GlF9AU M4aGZrcA7gdAxisbav dG9w Oyc+J22btJ2gFUS3PC T7owwxRJYdfpNtFA11 OY80A5KoVvwdwUTxjF U+JJYkzcMvlXriNQ5p YmFj b0wkc6CaTLgpD6FxZH ZoWYytJes2MJLdXRJ2 hGZ9qU2aCWAySHsqo9 S6iUW8M4DxciGupw8e b2xs KBAaWIvoI64eoBWuh5 R5XEOmyOS2DPDmaYuy XfYqsN40Xjw+PGNvbG age8XwDkfgl5kua6rb dGg9 IjMwJSIgdmFsaWduPS V0v2NqDx98Q94aLZps ZHRoPSIxNSUiIHZhbG pzbw7osL6sYf2+PGNv bCB3 cVS8sT2cAHLmKnH4XN ihI492WiAkaSSqFnma t6pkx5bnaDw0LrXqAP ClppBhlUpdUZV5h7Zr Lz48 C48kHAzbXNTyVGMhBF RaIFWqbPitkx0lzE5u Ii8+SF7kb7kvdx53iH 48dHI+MIVjCHF2dGjf PSdw XHRvwG1nYBdhWzA8LE RtKkJooW26yPYcRCkj Oc3nvSxzrHukYN8fTQ Ktkfzxn797LjHat2il IDEw oFFbZTlaPSH7F74bl3 M0AHAfTWBzPVQ7fTX0 dB7ouIyoliuknSOhgQ sgdmVydGljYWwtYWxp Z246 IHRvcDsnPlBhdGllbn BqDnGdXUk6N2PmFyw7 ZBIujFayBY1nfGTmQX izDw4zwUqcbVgoKJ8e NTBp wdjkl675BkKdt2zbZT YpyDQiQXceSCU7Q53k y9Q9KVUhRBDfYQM7bA Y6fO4zwYyfsyojdUXf dDsg dmVydGljYWwtYWxpZ2 46IHRvcDsnPkJpcnRo CWOjjLB9LL55IG54mL Awl8N9zSN1A1SrJAKz bmct porfgTI8JKOsZSHlrR 24Cc6yjWekLl2mLSBi BIV1XIMibMKwX3YubJ 0uXhMqHZFiBXSfJ2Zb eHQt TUmvQ203NDthQpU0HY QellCaR9AcDGZvjYuo EaF3e0C7Ub8AP8F9QC 25SD75hPXyl1W3oKE2 J3Bh MMRsebzpewvdpKS2HT LdQMNlpY39Gb1aaPad Ap3vCZNyHSX4KSGaeL QuI5WvrO8eJpFpEBSw MDAw J2JjiKYqBKrtD558IA jcWnQ5CIZgvfXuD5Ps LROmaMvmEeZ3v8H6Bx 6VOUk3EV65HV18mZBo c3R5 qQZ4A5KhYNBfjgyexp caaHJ2LELjVAQrzV29 Tl7ipNjnLc4zSHJhPA M1LWMgqBKvX6LcrS0y OiAj RNWtOOEqR2PhiBNvGT kwG255KXcrNpB8FLKq hoRfU6MuHWHvzLoxIf M0q7Y9Ee7PMADtMP36 IFR5 dOQ8JN83PS36Q8NpDq wvdGFibGU+PHRhYmxl IHdpZHRoPScxMDAlJy BfqTuaVS3aGh5rTJGz LWNv iCzqjNDgWsSxm7nvIQ AaRFevNP7rjOyjV7Zz hFX5QRAid9y8We71N2 5zQ9JseQZ+PGNvbCB3 aWR0 hV9jSuVjApF4LVbmQ4 32LhOikIFcLeozv9wo d8xrpGc0KcK4NLOozc LweMjmVWI3z0EhSw82 Y29s IHdpZHRoPSIxNSUiIH AmcWocdi5krJ6eDs8+ DIMwzJM0aGR9dM9aXi GnKlG5UKslO178WlQt cCIv Gsekg6szj0mhxFa2Nw IwJSIgdmFsaWduPSJ0 p2YsIa23Q8JyvSgue1 ItUtx4az28iCHtu1Q0 bGU9 Q7CpPMOhwqyuePDvdT umVS7qTIUzhtmpOYCe nC5pLTShQ0o1ZdNoNz S8CHcoH5GmieP9ZDMy cHQg TBjaUIR9P06ri2L8IA CrVAEhYGO8yBD7jO5c bGlnbjogbGVmdDsgdm LzgOhsNInaQLjtC122 IHRv wNqmTEHvbP2xMKWmjJ MofVjoAL0sTUZxraec AxpGQy0XIgunV2OYZ6 nUGnYFUB52HW14xPIc c3R5 yCL5Y3GoAUIdicyeex dfsCW2TCFrXZSkmQ94 iSDjDWquRr6dc7P4x5 88BCXgZEUzyT34Hh0l dDog FYDlfKJDiX5jaaxlw2 xvcjogIzAwMDAwMDt0 DJb6JYKejUayEaPaOY P5AtZ9MEJ0fNXkuW8j bGln weasgW1bBnc+MTAvMz EvMTkzOTwvdGQ+PHRk FJS3lDisPKokQHHegZ 4hXCFrO5f2OqOrPhU4 MGlu N8TaWEWbprjfRs10qA 9nYeGhVoT5WAalI1Ao vhS0NVGgsOYjTKchSH Y6I37kz4B6SDMdYFAe MDA7 cEW2sQ4lyYnyvmqnyI VmdDsgdmVydGljYWwt GGkeL054RHActSkdSa mnZVskOYOtYV21MK13 dGQg f0S0cRW9E5UjLCWqmq fkkbtpfCK0GELbYPHv vO45cSSsUKhsNr3hp1 E4y047CTLqAGApnF58 Zm9u wKyrJZJmaSXMtO2eey hgr0fynucpVkHhMSFu NDw5NSo5BCTmeUrbKv RhMXD6TzS9RSP7pUTi bC1h yTggnmhdoZ0nIau+Rm RwBIpyXY71IV37iDJu a3B3uXG8C2HbWUDypo hzqmtipVU9ZBKiASOm aW47 qRZpGJbpJt1er5B8j6 60YAVjDJDewH00Jw9x oSonUSPfrROEpV8xtn vjj1pocmezDsBvFZXk MDt0 HQo2KZBdlEzeYoDdGE U8PbY5EXX9wTLcpX6c sKuzqoenjU4qLtr+T3 T9hDU1rXKueZklcTB+ PC90 jy11T1BhScqlWdb8OV RzHYC6fVM5uI1hJRDc ANpzi3R6fWC2F6Ogpe Twpg3ql6aqYQKuUVmp Y29s gLSau7I8NLHpaWC8UW OuoXatGgXvyG82Ovj+ YLDjmNvvt3SqFgiqm9 qdj7cmpIv9CnJsVDSw dmFs pYxsMYP3n6OaPr31K4 9sIHdpZHRoPSIzMCUi FZMoeCxvvt1hvF5jMx 8+RQOqwRN4dFC4qA2u MjAl HvA8IDhfN410RbIejT XaWdzod7mxn5gybHo1 IjIwJSIgdmFsaWduPS Q9l6XaTy06O5AbpJoh b3Vw Wph4id16lKOfd7I5eX T5U7KgHKHllvsbfPNy yKcbUL8wBUBgdpwsCV ReqW2sDMJkH1y9VuEv LjA1 ETccQ1AqzxV6WUClyJ AgNZCzfZPOjQ5bibpr j3ybeyuzEdUzEYEyAW p8JPv7JLBymUmzFhTd ZWZ0 SmE9BLY5wBGsgU6zoL ubbtjjzO5cKdd+UGh5 w5nfdWWsQB0jyKN6AH 70GT91gSBke1Y0rGP8 J3Bh YLUogpcvydbznGQ4IB HyUDSigX96Jl5pqMuw Ta3oRYVaRGR2KYJneF GdB9IdyW3eXzEbYGMv MDAw G9DyoJGxUYjeL352MC xiKlC7UVDujuWcF9Cr FZZcdOpiKqG7b6T8At 4PMZ35NV30EG49jSHn c3R5 vCE1M1LoCFGwrnkgvs qkqBN2ZKVaQNVgbO93 Az7tdCwuFj2rCYQuOS J6LGHjhKZiI1UvrJ7i OiAj AELmVXXsH6CmuHJtJQ hbF510KWmaSiU1HZMi zkJuS3VlHZLuoZepTt R6m1U3Dr0FDs68OQ48 ZD48 mEXkp0D9wQS9W7JzUB JkmtbftdbmuGF0VKFd MPKghG63Ur6njCcqLt 9yFQOaFEV0PESzuUSa O2Nv mM8yIgFcPMMfYXMaG5 PprFXtYXnoL683SPiw CsY7UQJqmuNtF3JgAH StmAocNmO3d7X0Jg7F YXll cqe0D6OiNkfwiDE+PC 67YLDtOR01iIDkiUDg n7gpjNp9NtKrGZYaTP D5kBxgUBhxu4WsWFKp Y29s bGFw (more content not included)... Normal [facility] Coding Summary. CD:[id number]:[id number] 3EYz7bXc+PGhlYWQ+P T8JWWIlG85uhPFklL0 YO9iVUK0HVNEQVMURU O2CDP3yrOO9HRwcG9B ybiAv YdytyCPfER71XJx9XE B4cXsgLSeinT4djRKm F9m4LxSjBP74dY08SP llZTQyWyF6IiMrdget bWFy S9luDyGwqIJiIan+PH RhYmxlIHdpZHRoPScx RZEfDjDozZzhEL6hUr 9yZGVyLWNvbGxhcHNl OiBj a3hrRKStJBovLK7axC dyQ6UopLY3HBEqg0d2 Fs12nCN+FLKfTWR2qZ hrSMrus298SqLmr6my IDM3 uNEdGRdxPMA8C58mh5 N2RELfOOQbBUY9nAH8 tM5jqOgmjojgO5UidO PkCsD5AXO4hAJpjX6q bGln aylqrQ0gAbx+Q09ESU 1TTKTIJI2SRsb9C7Yr PjwvdHI+IG03DPYuQY 86jUHrsSYue6jmuOi9 JzEw NAEsBNZ4oPayJGzme9 BmZMTqR17svSYgg2S7 IGNvbGxhcHNlOyBlbX A7mB7rNMzyytklg6gt dzsn Ihksv1fnyb38bS65Z9 4lDYsiMZAsWGV2DXEx NQEpdVnsms9bwC6bUp 8+MNgvk2yce7jsgCm1 IjIw WDChaqBmcJweHLK6a5 GyXd14A8CecIlyp6Tf Gtu0yz13pKObv1L9wT M8XKbmREHcvM1hFSau ZnQ6 UNSgUoEonN46fIZmMC lcKd8tyQwvuMzsUS9m WXPgjroaTLJobY4qFJ GnrCJybXekXD0xLTIv bjtm k794QqEzVEI9NEPvcE GuB5WwoT0mErGlJGLk EMLjM9HywIYaGKbqX2 48LUyjMsY5NRTwkaYc Y2Fs VGQcaOsoZcB1i1G5Fr 4Oj3DppomqCUH1IJji VOI9JrPxFxExOmI2D9 PcMyq3XANbgXmdLV8p J3Bh BBOivbzsroiveML5XX EoADKwkJ50fRJoXOpt Ys1aa5Q0j050UWSfZW GxvW59Oy9tiTnxTHIp dCBU fX7bkpcet6mhhvizMn EwNWKvCYp9CAb1UKRb iJnhPbKnPIP6FmM5LW W2oTXfiJ2ivFvhwafi dG9w Oyc+W90ffW6pJSQ4GA P2rkhlMXXbyrIhIN51 OD54A2QzYroqlTHzkJ U+DIGelfInwQhsXI0g YmFj o2wdk2UiXFgpQ3WuKD HpNVszHxa2XXInDII6 wZF2nW1jAXMaEKrio3 N3rWF0D3WgtbTeqa7s b2xs ARDpRAitF67qqTWst8 W9WREvdOA5GUSlsHll DyQqfM95Rtc+PGNvbG mag5ZxQixyo6qwz4bg dGg9 IjMwJSIgdmFsaWduPS G4o1OaQf15G01vCSqh ZHRoPSIxNSUiIHZhbG kvqe8gfC6uHo2+PGNv bCB3 bGM3qP5iHBFiFnV5AO aqD570RnQbtAOdFfiu w5zvq3ufpIm3QyXhEM CvjcSxfGpjGPY5g8Gh Lz48 Q48sZCsuDJGsNZLoIS KfEETpqFbgya1imQ0s Ii8+XB9cv6kvrm10kH 48dHI+VPMbPBL4yNom PSdw FIZnxR0lMOppObO6TL FxLbRryF67rFZuUVhn Cj9eoVzilMvgLX7rRI Sqpkrub453TkLzm4gc IDEw jZOfNGvaWAA4T13ah8 D8WWVyCWHdEQM0yLK1 dC3kkOcyvylaeMHlzY sgdmVydGljYWwtYWxp Z246 IHRvcDsnPlBhdGllbn FjDdLqJCr8M5GjNyv3 JFIqrIuvXE1mpZUpTQ mxHi7whLwmvWjbYA6o NTBp pallw321PrTzx9kyMJ WfcWIbSOwvNIA9Z23s v0U5XFBwPKCcIJQ8qQ G9vF6jtHolkofjaFQt dDsg dmVydGljYWwtYWxpZ2 46IHRvcDsnPkJpcnRo TYIvyLZ9PO54CP59lB Xqw7M2bGO6N0WiBQBg bmct edkwcCU8VEXuGTRalZ 06Rm2bwVylOo5xBJYh UXI3XGUdgJDvM9MeiM 4tOfPrMIWuSFBiR7Lm eHQt TOxdC087QBkeNrT8ZT BktbMqD8OhHLVewKvo XrX1u7W0Nt9UN2Q3BY 43CY13iLAls0L8zDV2 J3Bh XSMcqmvammllcGD4HN PhPTEasO68Lr3guRfk Gm1aTMZnLBL8KLZoaU MyR7MhzE8kQsXfKSMl MDAw E0RtuQXsJPihM963FE gaQqW1BCFfqeCbC2Zm JVSbhPcnHgM9j6F4Ey 9AQJa4KR55WE91iMBj c3R5 cOG2J5UzMUUbjdgrht dssBT9DZDwXBVxqI82 Lf8wvLlgZk8tLALjXW U7PNIghDBkI7YzrV5k OiAj APHdXAOuU8WxqPKmKN jhN133MQqpMcB4XAJk glUlK7MhNNPmcJtiGi J2k7L0Ke4CIYScQW20 IFR5 fKP3VW65UU18O9HdDj wvdGFibGU+PHRhYmxl IHdpZHRoPScxMDAlJy XvyKhsBM5aLg9hCOFu LWNv sBevrFOwYrLaw5hePL DhNPztIR3dlAmfE0Lg wIX7JAPxw6e6Jp15F0 8nP2DvxHF+PGNvbCB3 aWR0 hV6tYwXiJnU2KTeeN1 80TiNqtZMwKcdfh9nx o9teyHw7JtD5IZEnsy XqmUzlLJP8b2VvIn12 Y29s IHdpZHRoPSIxNSUiIH HsfHgbev1xrW7dCg7+ IJNvnGN1mLN7cE4zCb UtNxE5HTvoV566IkWi cCIv Aoylt0ixw2mnpQc9Cc IwJSIgdmFsaWduPSJ0 e4KwCh73C3MomCgja5 XaRzv6bs28zXSzj3K8 bGU9 S8GlMXCobbxypCRfjV bbEZ1tXBOxmmgoWVRx kC3iHPWsN4b4ZhMdYn Z7REnaP0OpeqS9NBWn cHQg BSucSOJ5M97ji9D3AR ZrAMIgSEG6fNS3dV6m bGlnbjogbGVmdDsgdm MrxJrwWLiuFQyuK021 IHRv zQdvGCRkrE7sKDExcW HthBqqBO7dYEItlkkf XusEJx7TRroxX7SEL4 lATrMPWK28CC87iROv c3R5 fLA2T0LhVCUhbjvjru dbqHO9ATZnUIJoiE36 pWJsIOzeMu0mz2I9n0 77RRXdMQItmC29Xm0v dDog NWXrpCJSgF9knqzpp2 xvcjogIzAwMDAwMDt0 PRn3WUPxtDyqJbPfXD E9AoN0EAU0uEJjhR6x bGln ubgyeL7rSfk+MTAvMz EvMTkzOTwvdGQ+PHRk VXD6pKweTFotPEXxvV 3xOZCoG5e9FbQfUdL0 MGlu U0HeWHQutfwmRj74eO 2uSuSiMlK2CFmiM2Nm tlR6NEZjmHKcUQqeOP D0T53yi2X5GNKqRWEg MDA7 kKJ8zJ1mlKdxedqmfP VmdDsgdmVydGljYWwt VZjmG383XPLoyOyiYd eeDHcwLWMeXE36RM63 dGQg f0X0bEH9K9AuPVMfcp bnjyqhlXW6RTDqJEDb nG00tXInCXtvCl6zd9 S5y549DXJtITOsoX85 Zm9u iCovVNPlbSKLzG0odz jib6kcocizYgUnFKFa UZc3OMy5SAAgfYouTq XiEVC2ZeK8CXU9mQMc bC1h zHczwotshE7cJig+Rm TiGTxhCJ13MI21jEXt o1W4kZO3R6LyYZIbgv lyfncaiWP2AOSnFODe aW47 gAEiQPxmFh7xy1Z7z7 46OCIdOLSqvV82Yd5w iVumLPXsyCMWuF6epp swx4weveswCsQmDBQt MDt0 GHo4KPXqqNucUhGzLO X1GhC6HNH8dKSiwY7i bPaotjdyrW3oMso+T3 Z0pKO2zASxtBelmNU+ PC90 pq67Y7HtIqrzOad3VG FsPXY9wTP5dK5bNBPl OYmxz7V4xCQ2L1Chis Acjn1lt8jzUFEzDUjw Y29s vTOun4V5HXQxnVD4IB PxnFppCvVaaZ29Qai+ HRJryCkjz3GmVnenz5 lzl4lbnWu8AlKiAECp dmFs wDekIBV9y6DvFo71V9 9sIHdpZHRoPSIzMCUi CWMgsLqild8uiM6nDf 8+OAXqwYW7vAK7qG7o MjAl EsT2ASnsS415ZlAegW WeTsvrr9rqj9yyrUa1 IjIwJSIgdmFsaWduPS Y7y7SaXj85E2JvuCef b3Vw Fvz5vw64aWVey0Y0kA B0J0GyPTPspsqkoNZb aSbiKE7dGOSpqqpaNQ ZlhZ0uANFtU7q2HcBa LjA1 OQxgU3BkxmA6OFNkaS RgGAJuzTDLuF8jtwmt f3rzjexsDuKyTHEkLP k0BCm7DSRzrWvaKiRf ZWZ0 KuL5GSU4zBVuuQ7bgX aoqtjkzE1lDov+UGh5 z9uegVHeKQ6aiGM4IP 89LE10fBElw9Q5sUL1 J3Bh UMNadvplgishdUZ9JB VaZELvoI21Rq0oxZpa Tx4xJGMjSWF5QVVliC DqT7HpdP7lRjYaJXWx MDAw G4KmkKTjZHouL699IJ dnXkN6JWVhyaJuV2Ve NWPmgOypMgB9e6Q7Ny 7WKM22UR81XT57xQMu c3R5 dFY8C0GaHUWdgzgrcw wsmIW2JKMeWCOitB92 Rk5smJgbMe0gLDTsRJ I3YQPigTZqX1SmcJ1x OiAj CNGqHURtH5EsuRCtOT ylY764RKxiEfX1FARq giGaW1RwZVQllSubMm O8u7I4Bf0BEh22PJ44 ZD48 sGVyh6W8iSD8R5NhDI LitphpafqndIM6GHAv LPBjtQ71Re9mcLlpOv 4cPKSrANE2PMDucPDr O2Nv tR0bOfAhFWJqWIAtE4 WltDOuKLthU485DZst YvK0UYQndlGrT7ZfLO LegTxzXgF1u9R4Cd2F YXll nzd7M6LdKnqsoAA+PC 53WLFhEN72nGXsdPPq p0gfdEh2EjMnMFTtQH G5yPbeETmux5PuBWRk Y29s bGFw (more content not included)... Normal [facility] Consent for Treatmenton 04-23 Consent for Treatment [id number]#1.00CD:127 Normal [facility] Heart and Vascular Office/Cl inic Noteon 05-11-2021 Heart and Vascular Office/Clinic Note History of Present Illness Lola Andino is an 80 year old female without significant cardiac history. She presented to [facility] 04/19/21 with complaints of chest pain. [...] She is going to go to a fleet dispatch manager in the next week or so to [...] SINHA, Tristan Ashley 04/30/2021 16:28 EDT Normal [facility] Comment on above: Result Comment: Elec tronically Signed By: Sawyer SINHA, Nico [email or web address]\Date and Time Signed: 05/11/21 11:15 EDT Stress EKG Tracingson 2020 Stress EKG Tracings [id number]#1.00CD:127 Normal [facility] NM Myocardial Spect Rest/Str ess [...] Stress Dose (mCi Tc99M Cardiolite): 29.9 Normal [facility] Coding Summary.on 04-23-2021 Coding Summary. CD:[id number] 7XMo2iPd+PGhlYWQ+P X8QADYpP73kmLYefC9 VP1mMZL6CDBYWPEHTJ O6VUI6jkEF6YNavU7U ybiAv QdmcdLOtHC54HFw9SJ X6yRtzQFoygF3lcEYx Z8s8BwTfKU75eQ75IJ woMKKaKhU3QpLyncsu bWFy B1qsXzUhyRPiStz+PH RhYmxlIHdpZHRoPScx DHEjCmElsAhqOP2rYt 9yZGVyLWNvbGxhcHNl OiBj v0zzSVAqAWzfJV6uoK bhC9ZbeED4VGIsr2b2 Ts74jPF+JYHgTOQ7fU etPFgdn530VzTfq6py IDM3 qXQnYOxcQEH2V57cd3 P8CIJlAPTcTTV1aIT9 wO2zqWvvkjwcV4NtkC AzXhO9XWR7cOKruA2s bGln ivpqzA8uVft+Q09ESU 7GXTNZUB6QNat9U5Ml PjwvdHI+CH56SPLyFY 84rAImgEJrh1jfmKj1 JzEw ESItWVG5gHplWJlgi0 RiJJNsB47suDCol9Y2 IGNvbGxhcHNlOyBlbX R8qN2sRSywqephz8xi dzsn Meazq5knwa30lR53D1 0yAPnwWVBqZCT5BYVy HWGdtYmkgb3ciR3vLr 8+MBeaf8ftb6vosIq0 IjIw BQFbelQcpHxdHBW1u8 ZmMl18X9HvjXizs6Ca Fwg4kq07bYWip1P0yU C3JBfmCBRjmK8uOMjk ZnQ6 AKSvLwBooZ90gBUdLC zkSy2ztYqbqTwqZO5f LKCcudccCPAuoZ4cML JlxBZzzRuqEA7gMIBh bjtm w472JxGuDVT3GJTpkF PeI8YmwB9jWaXfULXa GNKvE7ZcgKEvEEbcS9 12YXvrEeV3VZKscuTb Y2Fs ZVTfvLscJyS6l3B9Dl 3Sb1VzzfmmALR9XEyh DTK3OqFtEmXtYuO5O0 LqPdk4OLGkbGvtFY5q J3Bh RDRhndnspmhbaPB0LV KrHNKogU94lOYdBVit Bm1xn4L1e587DFThBL ZkqM78Jz3zxBgwLGUw dCBU pD8ipblrq4dbywtjRm AqGYIsZUq7WZf5IGBa kVyhJzNzNFD5KjD6BE U0kLZphY1nbXrdfild dG9w Oyc+I13dkX2cNGB3WI X6lkzuHHGwjmBlGO93 AH21T8VxExhrpGRfqE U+OYCuaiQffLhzNF3y YmFj p1zve3YiUYfnP7YdPR KdTJkeEwz6KRBqINJ0 iZE5lB1iMXJaANpzw3 E0iEB1E5OuloTykh2s b2xs BOPpWAyaU76oxBIzx1 N3DPSleUV8YHVriZwi BfRccM89Ycy+PGNvbG muz9MxEzqvs4iie8zc dGg9 IjMwJSIgdmFsaWduPS O0b2DjRi87S09jUQfm ZHRoPSIxNSUiIHZhbG gmjx1zdB4bJs5+PGNv bCB3 xZW0cW1yJBMmFjU5YE kiB922UhLvrDEvHevh c8urx4xtbVl2ZqOzMF GyzaEafObmDVI6s3Bv Lz48 D15yOHukWVLzLFRdSA QiUAIjhSagdv3dbJ5z Ii8+KQ8yw2pvce55oI 48dHI+ZICuEQN1lQql PSdw FLZckB2zOEfhAjG6TK DlRiQlxS50cHNdHJbb Rt2ijUriaVqxZB8lPO Kzvpjds323XtTas7dr IDEw bZBkOBrwTLM7P42pj6 N8CSXjTJJoFIS9fAS5 tV3nmLkxzwfndTHisJ sgdmVydGljYWwtYWxp Z246 IHRvcDsnPlBhdGllbn LvHgQpCUr1J0XnNmk5 BCBbdWveZR2euZCnQJ krFh8apJjajLpjLX9x NTBp xhetr189KeWly0hwWU HkpTVtJGykXQZ7L80s y3F9KQFeJNItMSK4rW Z0wC3emQejrvyrvEFa dDsg dmVydGljYWwtYWxpZ2 46IHRvcDsnPkJpcnRo NIStlTW8PT38GZ45yG Oiu9H6fRT9S4VrECNv bmct zuipjDF6DQJhEIJhfU 54Pd6yhUbiLk5iQBMk OXA1TMKrlYNmH5WxzE 0lZxEiEFSdQGYwG9Oe eHQt KJqpZ042EZczHaB9MS BbgcJgU6DzMJZrgEes RkK2j9R4Db9YP7D7ZO 29AS93kYUwt8K5gCO3 J3Bh QLQuqlypybpkeWK7WA YkRBYknJ83Jx6mfLin Wc8tNSUdQMZ4VLUviA GxS4LenW3yAoOuDZSd MDAw H3JibBImXXwtI116XU qmUlV9BGLvuxLwO1Sb FOSiyKetTuQ3y7K1Ll 6VQLr0HT20YV43yVTw c3R5 vTS5F9AiQMLmyvctog jasKU7XBDiZHTogD14 Dd5iiAdsMh4uQIOjAI H3FBNgvFHgF0UsuZ0w OiAj DJYqDBLhE3GfzNKyWM foF675HKlpCdB1GVDu mrEgQ1KzLGTdbJdsLi A8u8L4Br9PXQTaXT65 IFR5 yPV8WF59NW69N3XcJs wvdGFibGU+PHRhYmxl IHdpZHRoPScxMDAlJy XdsXjjZZ8oOd9pRHOd LWNv mTvqiNRtVePki0axWW VpPEwtEC7ogFaxQ6Km uVZ1AOPit9h8Gd28H3 1vO1CqrQX+PGNvbCB3 aWR0 oG6oYrXlIoD4QAuvI6 32IwWpzFRxEglmb9pu s9mecQw0DaA9SQEqpe QtcAmpDUR9m3UvYn96 Y29s IHdpZHRoPSIxNSUiIH PyuOgnpp9xnE9uXi0+ VFRyfEN2cDZ4mM4nDh IhRvR6DIflO277RbZm cCIv Ulunw6hzx8yevBc4Ov IwJSIgdmFsaWduPSJ0 t3AkMb62I9CagMxkl7 JvWtr4cg70vGIyz5X8 bGU9 Z9HlYTCpueqjfMVeqT asEV4aOPKjsgnqYRNk qL2hRWDhN7f8NyUjHa Z5HOwlW8FedqG0QZPk cHQg SNffEXG7H48wm1P6GU DxXCFvMMI8gXT3gC2q bGlnbjogbGVmdDsgdm WjyXaeGZuwTXyoT070 IHRv rUkkMQAwxE9zQMRfsI AtqQymNB1fHEOtoucm CxaYMo5HEaqcG1WOO8 pPMyKIDA71IO23pGUh c3R5 oFQ6B2BhSTZxxsdotn zhxXH2XZCbIZQyoV63 sBKdMPlxRm3hp8R4o3 23WBOiLYIbjY56Mn9a dDog IEEdxZZXrI0veupqc1 xvcjogIzAwMDAwMDt0 QQl7NTUfdXxsRwCtXI J4AsY7BHX0zUEioS6v bGln irokxF4pKcy+MTAvMz EvMTkzOTwvdGQ+PHRk RUF2cUwtLStnNNEkrI 3cLNDkV6m7KjGuThI2 MGlu N4VsGLEhewdgLc33fZ 5aZaJdGoM3KFctF6Tk hgA0GAErmUOcVRfvPQ J8D85ra3D7NOQrZTVh MDA7 aAL4jC3qwUlvykahxT VmdDsgdmVydGljYWwt JQcyZ055GQDtgRavLc khBCabMFCqCE57ZU83 dGQg h0Z1qLN8S7BkXPWlkc vqbbaggHK2JRPcIFOm xZ97bHUlPCabAh3yy2 R1o803KKSaVXYloW88 Zm9u iUjhKUIavXPEmV9hxc cnr6elaoojTgCwSMFq LAb3EYs9TZBndGkyKb AcZRN9ZiL1EUX0tOIz bC1h gTuurbfinS2oKzj+Rm EbPGkoAH51ZT50pLAr a2Q8iMU9N4PoJQEjrn vjrirqdQW4YULdQXNy aW47 wYYaHCuwPo1hk0H1a6 82FROqOTGlwQ47Bz4u dKszGQTzeVQYyE6hpa ygv9leozafVrCoCWNy MDt0 DZq1TQGkpAawOcNhUM R9JzO1RDA6mVOalG2p rMpavdjnoC5aJwy+T2 CuWVU8VNKfg791I8Km Pjwv dHI+NV21JRHkJL61dX MbbQDzk0ozpNv6XjHo KNYtQGJ9xEvzUXnsy1 VvRMQdX95wpTCjo9H3 IGNv cZifiDTkJoJsxMG1iQ 5rZEyaapqfo4xomnrw Siucb9skmi62gA64R0 9sIHdpZHRoPSIzMCUi IHZh aSkzwt8qkR2tNd1+PG XgkMR2yTT9xU5oRnOs XyL7SGcoX551HaXfcF TfXhbwv0sum6musWr9 IjIw GVGtcdGdaNppFIZ9o6 EkXv48O15gLIjxXSQp PSIyMCUiIHZhbGlnbj 8xcO7iJe3+XD9ck6lq cm91 wE70kOQ+AQAdAYY5kV tfIYyqJROybU2rXRiy YcD7BMTbVpVixX16dA GpQSyvNf9ynQpjyBkn MC4w OLNwrvbtu783TeBxp4 xkIDEwcHQgVGltZXM7 S94xu6Y2QMQdSJBxHJ O0cUI4jP7uyGfmfdhw bGVm dDsgdmVydGljYWwtYW xhW378UXIekVoaHxHs jUSaA3tboxFQSC1iQn wvdGQ+NTJlYQV8eHyd PSdw ZNXllO6oKMFzP7q0Xc PzXsK9LKrpZ4HclrM9 IGJvbGQgMTBwdCBUaW 1lgmjjk8xjjssbGtAi MDAw PMu8PIv3DQUveJfmYj PtICM9YfE4TOM8jEXw eY9buYqmwbcimH3hLy c+RklOOjwvdGQ+PHRk IHN0 hZoqDFrnHNKvbS9rCN JkY5g9NzVrZrZ2RDpk N4BeauR5ZPRkjSIjBL AylRQUgP1tzrsfy5ah cjog QgZwUTYoKIu0PMb5BO KueNmmFhSzAIR7NfW3 DHV5cFDlqH9acWocmw hbxN1aBeb+TVJOOjwv dGQ+ KYEwCRK1dJbnFLvpAD PtoE1wZCJaT0u9IeJn KbH4VNihI0NwfkK0IG OybDEeNBHidQBZwG7u cztj o9wjyncxBrObBNPzKP j2XEb0VNJxfVvoRvBg DEC6JlC7LLM8xOFobI 1oeHhvxbehqH8nAmu+ UGF5 KRR7OT31LV97Y3YuZd wvdGFibGU+PHRhYmxl IHdpZHRoPScxMDAlJy CbbMvmMH7wLn6rJWEv LWNv bGxh (more content not included)... Normal [facility] Interdisciplinary Note - Eric e Manageron 04-23-2021 Interdisciplinary Note - Survey Coordinator ED: Dangelo H/P: Susanne Profit: partial PIS (OBS/IN): OBS 04/19/20211920, TF: 04/19 1850 Chgs: D/C: VTE: MCG: +OBS/CP, -IP/CP Tele-yes ICU: <2mn-yes Insurance: [employer] [facility] PAT (tests): no imaging at this time Readmit: no MM: OBS: ED: Dangelo H/P: Silviayoselin Profit: done PIS (OBS/IN): OBS 04/19/20211920, TF: 04/19 1850 Chgs: done D/C: done VTE: na MCG: +OBS/CP, -IP/CP Tele-yes ICU: na <2mn-yes [facility] PAT (tests): no imaging at this time Readmit: no MM: done OBS: done Normal [facility] Comment on above: Result Comment: Elec tronically Signed By: Scott LEZAMA, Avani Ventura\.br\Date and Time Signed: 04/23/21 15:59 EDT BMPon 04-20-2021 Anion gap [Moles/Vol] 15 mmol/L Normal 6-16 [facility] Comment on above: Performed By: #### 2 [id number], [id number] #### [facility] [address] [place] [address] Calcium [Mass/Vol] 9.2 mg/dL Normal 8.9-11.1 [facility] Comment on above: Performed By: #### 2 [id number], [id number] #### [facility] [address] [place] [address] Chloride [Moles/Vol] 106 mmol/L Normal 101-111 [facility] Comment on above: Performed By: #### 2 [id number], [id number] #### [facility] [address] [place] [address] CO2 [Moles/Vol] 25 mmol/L Normal 21-31 [facility] Comment on above: Performed By: #### 2 [id number], [id number] #### [facility] [address] [place] [address] Creatinine [Mass/Vol] 0.6 mg/dL Normal 0.5-1.3 [facility] Comment on above: Performed By: #### 2 [id number], [id number] #### [facility] [address] [place] [address] Glucose [Mass/Vol] 124 mg/dL Normal 55-199 [facility] Comment on above: Result Comment: If t his glucose result represents a fasting glucose, interpretation should refer to the following reference range: 55-99 mg/dL Performed By: #### 2 [id number], [id number] #### [facility] [address] [place] [address] Potassium [Moles/Vol] 3.7 mmol/L Normal 3.5-5.3 [facility] Comment on above: Performed By: #### 2 [id number], [id number] #### [facility] [address] [place] [address] Sodium [Moles/Vol] 142 mmol/L Normal 135-145 [facility] Comment on above: Performed By: #### 2 [id number], [id number] #### [facility] [address] [place] [address] Urea nitrogen [Mass/Vol] 15 mg/dL Normal 5-21 [facility] Comment on above: Performed By: #### 2 [id number], [id number] #### [facility] [address] [place] [address] Urea nitrogen/Creatinine [Mass ratio] 25 No Units High 10-20 [facility] Comment on above: Performed By: #### 2 [id number], [id number] #### [facility] [address] [place] [address] Cardiology Progress Noteon 0 04-20-2021 Cardiology Progress Note Cardiology Consult Received- full note to follow Reason for consult- Chest Pain Lola Andino is an 80 year old female without significant cardiac history. She presented to [facility] 04/19/21 with complaints of chest pain. [...] seen and examined with Dr. Shin. Normal [facility] Comment on above: Result Comment: [...] History Heart failure: Father and Brother. Normal [facility] Comment on above: Result Comment: Elec tronically Signed By: Kip SINHA, Tristan Ashley\.br\Date and Time Signed: 04/20/21 16:31 EDT Discharge Instructionson Discharge Instructions [id number] Normal [facility] Inpatient Clinical Summaryon 04-20-2021 Inpatient Clinical Summary [place] [id number] Clinical Summary Person Information: Name: LOLA ANDINO Age: 80 Years : 1940 Sex: Female PCP: LG OVIEDO DO Marital Status: Unknown Race: White Ethnicity: Non- or Language: Nepalese Visit Id: Visit Reason: Shortness of breath; Chest pain; SOB, CHEST PAIN Speciality: Acuity: Enc Type: Observation Med Service: Medical Arrival: 04/19/2021 14:36:15 Discharge: 04/20/2021 12:33:00 Dispo Type: Home (Routine DC) Address: [address] [place] [address] [phone] Provider Notes: Diagnosis: 1:Chest pain; 2:Hypertension; 3:DVT [...] Physician: Follow up: With: Address: When: Franklin Merry [address] [place] [address] [phone] Business (1) Within 1 to 2 weeks Comments: follow up for pulmonary nodule With: Address: When: Tristan Shin [address] [place], [place] [phone] Business (1) Within 1 week Comments: Call for followup appointment With: Address: When: LG OVIEDO [address] [place] [id number] Business (1) 04/24/2021 3:00 PM Patient Education Information: Hypertension, Adult lisinopril Normal [facility] Inpatient Patient Summaryon 04-20-2021 Inpatient Patient Summary [place] [id number] Patient Discharge Instructions PERSON INFORMATION Name: LOLA [...] Follow up: With: Address: When: Franklin Sousa [address] [place] [address] [phone] [facility] () Within 1 to 2 weeks Comments: follow up for pulmonary nodule With: Address: When: Tristan Shin [address] [place], [place] [phone] [facility] () Within 1 week Comments: Call for followup appointment With: Address: When: LG OVIEDO [address] [place], [place] [phone] [facility] (1) 04/24/2021 3:00 PM In the event [...] of breath. (more content not included)... Normal [facility] Interdisciplinary Note - Eric e Manageron 04-20-2021 Interdisciplinary Note - Survey Coordinator Pt is awake and alert in bed, [...] per nursing. Anticipate DC home today 04/20. [facility] Comment on above: Result Comment: Elec tronically Signed By: Miguel LEZAMA, Yuli\.adwoa\Date and Time Signed: 04/20/21 10:09 EDT Interdisciplinary Note - Soc ial Workeron 04-20-2021 Interdisciplinary Note - Detective Automobile Section Computer generated consult for advanced directives received. This SW spoke with the patient who states that she already has HCPOA and LW completed. This SW requested a copy when she or family is able to bring in so that it can be scanned into her EMR. Patient is very appreciative for checking with her. SW will remain available. [facility] Message from Medicareon 03-24 Message from Medicare [id number]#1.00CD:127 [facility] Monitor Recordon 04-20-2021 Monitor Record [id number]#1.00CD:127 [facility] Monitor Record [id number]#1.00CD:127 [facility] Pre-Certification Formon Pre-Certification Form [id number]#1.00CD:127 Normal [facility] Troponin 9 Hr.on 04-20-2021 Troponin I.cardiac [Mass/Vol] 17.60 pg/mL Normal 10.10-27.10 [facility] Comment on above: Result Comment: The 95% CI (Confidence Interval) PPV (Positive Predictive Value) for myocardial infarction in females is 38 pg/mL, in males 51 pg/mL. The results should be used in conjunction with clinical conditions of myocardial infarction. (Access High Sensitivity Troponin I Instructions For Use, [employer], March 2018) Performed By: #### 2 173875, [id number] #### [facility] [address] [place] [address] UA With Cult Reflexon 2020 Bacteria LM Ql (Urine sed) TRACE Normal Trace [facility] Comment on above: Performed By: #### 2 936875, [id number] #### [facility] [address] [place] [address] Bilirubin Ql (U) Negative Normal Negative [facility] Comment on above: Performed By: #### 2 705220, [id number] #### [facility] [address] [place] [address] Clarity (U) SL CLOUDY Invalid Interpretation Code [facility] Comment on above: Performed By: #### 2 292544, [id number] #### [facility] [address] [place] [address] Color (U) YELLOW Normal Yellow [facility] Comment on above: Performed By: #### 2 000644, [id number] #### [facility] [address] [place] [address] Epithelial cells.squamous LM.HPF (Urine sed) [#/Area] 0-2 Normal 0-2 [facility] Comment on above: Performed By: #### 2 518190, [id number] #### [facility] [address] [place] [address] Glucose Test strip (U) [Mass/Vol] Negative Normal Negative [facility] Comment on above: Performed By: #### 2 594520, 39026401 #### [facility] [address] [place] [address] Hemoglobin Ql (U) TRACE Abnormal Negative [facility] Comment on above: Performed By: #### 2 024786, 05403954 #### [facility] [address] [place] [address] Ketones (U) [Mass/Vol] Negative Normal Negative [facility] Comment on above: Performed By: #### 2 950092, [id number] #### [facility] [address] [place] [address] [place].plasma/[place]. RBC (Bld) [Mass ratio] 0-3 Normal 0-3 [facility] Comment on above: Performed By: #### 2 658627, [id number] #### [facility] [address] [place] [address] Mucus Ql (Urine sed) 1+ Normal [facility] Comment on above: Performed By: #### 2 195863, 91254414 #### [facility] [address] [place] [address] Nitrite Ql (U) Negative Normal Negative [facility] Comment on above: Performed By: #### 2 913769, [id number] #### [facility] [address] [place] [address] pH (U) 6.5 [pH] Invalid Interpretation Code 5.0-9.0 [facility] Comment on above: Performed By: #### 2 965993, [id number] #### [facility] [address] [place] [address] Protein (U) [Mass/Vol] Negative Normal Negative [facility] Comment on above: Performed By: #### 2 299591, 36423219 #### [facility] [address] [place] [address] Specific gravity (U) [Rel density] 1.020 Invalid Interpretation Code 1.005-1.030 [facility] Comment on above: Performed By: #### 2 704105, [id number] #### [facility] [address] [place] [address] Type of Urine collection method Clean Catch Normal [facility] Comment on above: Performed By: #### 2 164552, [id number] #### [facility] [address] [place] [address] Urobilinogen Qn (U) 0.2 {Raji'U}/dL Normal 0.0-1.0 [facility] Comment on above: Performed By: #### 2 153373, 01562315 #### [facility] [address] [place] [address] WBC Auto Ql (U) Negative Normal Negative [facility] Comment on above: Performed By: #### 2 102562, [id number] #### [facility] [address] [place] [address] WBC LM.HPF (Urine sed) [#/Area] 0-5 Normal 0-5 [facility] Comment on above: Performed By: #### 2 484620, [id number] #### [facility] [address] [place] [address] XR Chest Single Viewon 04-20 XR Chest [...] Childers M.D. Transcribed by: ARBEN Technologist: MAYE, Normal [facility] eGFRon 04-20-2021 GFR/1.73 sq M.predicted among blacks MDRD (S/P/Bld) [Vol rate/Area] mL/min/{1.73_m2} Normal >=59 [facility] Comment on above: Order Comment: Order added by Discern Expert. Result Comment: eGFR is race adjusted. AA=. Performed By: #### 2 167952, 36367773 #### [facility] [address] [place] [address] GFR/1.73 sq M.predicted among non-blacks MDRD (S/P/Bld) [Vol rate/Area] mL/min/{1.73_m2} Normal >=59 [facility] Comment on above: Order Comment: Order added by Tamy Expert. Result Comment: Psychologist Clinical brady kidney disease could be indicated at eGFR's of less than 60 mL/min/1.73m2. Kidney failure is indicated at less than 15 mL/min/1.73m2. Performed By: #### 2 553924, [id number] #### [facility] [address] [place] [address] Auto Diffon 04-19-2021 Basophils/100 WBC (Bld) 0.8 % Normal 0.0-2.0 [facility] Comment on above: Order Comment: Order Added by Discern Expert. Performed By: #### 2 638855, 5351525, 7899534, 96087064, 78578027, 55726582, 69260224 ####[facility] [address] [place] [address] Basophils/Leukocytes Auto (Bld) [Pure # fraction] 0.0 E9/L Normal 0.0-0.2 [facility] Comment on above: Order Comment: Order Added by Tamy Expert. Performed By: #### 2 400523, 8129184, 9464457, 78759888, 40805180, 95847935, 92035057 ####[place] [address] [address] Eosinophils/100 WBC (Bld) 1.2 % Normal 0.0-8.0 [facility] Comment on above: Order Comment: Order Added by Discern Expert. Performed By: #### 2 570133, 4652183, 3525406, 51331558, 31593591, 62862756, 63866717 ####[address] [address] Eosinophils/Leukocytes Auto (Bld) [Pure # fraction] 0.1 E9/L Normal 0.0-0.5 [facility] Comment on above: Order Comment: Order Added by Discern Expert. Performed By: #### 2 111658, 5474016, 2225143, 44089958, 58734166, 80823881, 65188000 ####[address] [address] Lymphocytes/100 WBC (Bld) 23.5 % Normal 14.0-50.0 [facility] Comment on above: Order Comment: Order Added by Discern Expert. Performed By: #### 2 337007, 6379776, 8112493, 46492462, 00663159, 35491581, 97625113 ####[address] [address] Lymphocytes/Leukocytes Auto (Bld) [Pure # fraction] 1.0 E9/L Normal 1.0-4.0 [facility] Comment on above: Order Comment: Order Added by Discern Expert. Performed By: #### 2 580400, 6520471, 8505032, 99941344, 85684267, 24576584, 98951898 ####[address] [address] Monocytes/100 WBC (Bld) 8.8 % Normal 4.0-14.0 [facility] Comment on above: Order Comment: Order Added by Discern Expert. Performed By: #### 2 340208, 4283728, 0179091, 22259835, 08711478, 41085655, 71052132 ####[facility] [address] [place] [address] Monocytes/Leukocytes Auto (Bld) [Pure # fraction] 0.4 E9/L Normal 0.2-1.0 [facility] Comment on above: Order Comment: Order Added by Discern Expert. Performed By: #### 2 620333, 0143289, 7476494, 91463499, 29945612, 34380050, 05873139 ####[address] [place] [address] Neutrophils/100 WBC (Bld) 65.7 % Normal 36.0-75.0 [facility] Comment on above: Order Comment: Order Added by Discern Expert. Performed By: #### 2 481525, 0019868, 5279390, 55751637, 69664547, 76639367, 70976784 ####[address] [place] [address] Neutrophils/Leukocytes Auto (Bld) [Pure # fraction] 2.9 E9/L Normal 2.0-7.5 [facility] Comment on above: Order Comment: Order Added by Discern Expert. Performed By: #### 2 405210, 6657099, 2623622, 91552617, 13690655, 12977400, 61328075 ####[address] [place] [address] BMPon 04-19-2021 Creatinine [Mass/Vol] 0.9 mg/dL Normal 0.5-1.3 [facility] Comment on above: Performed By: #### 2 652600, 2088389, 5150204, 13613085, 67081952, 41415778, 24742407 ####[address] [place] [address] Urea nitrogen [Mass/Vol] 18 mg/dL Normal 5-21 [facility] Comment on above: Performed By: #### 2 080482, 2145980, 6608422, 52761033, 42554602, 22191720, 79893033 ####[facility] [address] [place] [address] Urea nitrogen/Creatinine [Mass ratio] 20 No Units Normal 10-20 [facility] Comment on above: Performed By: #### 2 641628, 3194301, 9351754, 90648328, 79600977, 56642386, 66912302 ####[facility] [address] [place] [address] Anion gap [Moles/Vol] 12 mmol/L Normal 6-16 [facility] Comment on above: Performed By: #### 2 878831, 2849611, 7836742, 32976611, 41003380, 76294884, 22047494 ####[facility] [address] [place] [address] Calcium [Mass/Vol] 9.2 mg/dL Normal 8.9-11.1 [facility] Comment on above: Performed By: #### 2 036571, 6900549, 6033305, 50247854, 64618059, 81894293, 87970644 ####[facility] [address] [place] [address] Chloride [Moles/Vol] 102 mmol/L Normal 101-111 [facility] Comment on above: Performed By: #### 2 423705, 7235407, 0443655, 58785899, 09340343, 02993360, 01271691 ####[facility] [address] [place] [address] CO2 [Moles/Vol] 27 mmol/L Normal 21-31 [facility] Comment on above: Performed By: #### 2 247407, 3196607, 7580040, 40080584, 15063872, 04373173, 45659609 ####[facility] [address] [place] [address] Glucose [Mass/Vol] 115 mg/dL Normal 55-199 [facility] Comment on above: Result Comment: If t his glucose result represents a fasting glucose, interpretation should refer to the following reference range: 55-99 mg/dL Performed By: #### 2 998860, 5712997, 4243477, 39040218, 97296036, 78389042, 51173193 ####[facility] [address] [place] [address] Potassium [Moles/Vol] 3.4 mmol/L Low 3.5-5.3 [facility] Comment on above: Performed By: #### 2 986615, 9053989, 7020481, 07792336, 97291973, 81626719, 62422687 ####[facility] [address] [place] [address] Sodium [Moles/Vol] 138 mmol/L Normal 135-145 [facility] Comment on above: Performed By: #### 2 922689, 6827841, 7632089, 52708800, 42229742, 11553796, 02019183 ####[facility] [address] [place] [address] BNPon 04-19-2021 Natriuretic peptide B (Bld) [Mass/Vol] 76 pg/mL Normal 5-80 [facility] Comment on above: Performed By: #### 2 934394, 1066121, 2644551, 62161590, 79475453, 65474438, 59205471 ####[facility] [address] [place] [address] CBC w/ Auto Diffon Erythrocyte distribution width (RBC) [Ratio] 13.1 % Normal 10.9-14.2 [facility] Comment on above: Performed By: #### 2 535495, 5006104, 0145780, 82116555, 96925856, 14788690, 76598786 ####[address] [place] [address] Hematocrit (Bld) [Volume fraction] 36.6 % Normal 34.0-46.0 [facility] Comment on above: Performed By: #### 2 569631, 9203927, 4339645, 03727994, 10942269, 63940747, 81610865 ####[address] [place] [address] Hemoglobin (Bld) [Mass/Vol] 12.5 g/dL Normal 12.0-16.0 [facility] Comment on above: Performed By: #### 2 355696, 3443590, 4703576, 03997567, 02927998, 25764931, 63347976 ####[address] [address] MCH (RBC) [Entitic mass] 33.0 pg Normal 27.0-34.0 [facility] Comment on above: Performed By: #### 2 557507, 0607079, 5728068, 85227721, 48586381, 86833190, 29775191 ####[address] [address] MCHC (RBC) [Mass/Vol] 34.0 g/dL Normal 31.4-36.0 [facility] Comment on above: Performed By: #### 2 951800, 4991334, 7733566, 82596299, 27867130, 25155874, 83944383 ####[address] [address] MCV (RBC) [Entitic vol] 97.2 fL Normal 80.0-100.0 F [facility] Comment on above: Performed By: #### 2 218652, 0353243, 1462504, 68038065, 42520787, 95198457, 08226633 ####[address] [place] [address] Platelet mean volume (Bld) [Entitic vol] 9.5 fL Normal 6.4-10.8 [facility] Comment on above: Performed By: #### 2 151473, 3737925, 6388040, 81622408, 32854352, 14819674, 90449866 ####[address] [address] Platelets (Bld) [#/Vol] 277.0 E9/L Normal 150.0-500.0 [facility] Comment on above: Performed By: #### 2 759669, 6571717, 3519011, 53220751, 23686996, 05308616, 00066737 ####[facility] [address] [place] [address] RBC (Bld) [#/Vol] 3.8 E12/L Low 4.3-5.9 [facility] Comment on above: Performed By: #### 2 258609, 4076002, 2351635, 30563015, 17643754, 19110158, 21350498 ####[facility] [address] [place] [address] WBC corrected for nucl RBC Auto (Bld) [#/Vol] 4.4 E9/L Normal 4.0-11.0 [facility] Comment on above: Performed By: #### 2 704960, 3386927, 6894206, 51097772, 71157705, 36015308, 07498444 ####[facility] [address] [place] [address] Consent for Treatmenton 03-23 Consent for Treatment [id number]#1.00CD:127 Normal [facility] ED Clinical Summaryon 2020 ED Clinical Summary [address] [address] ED Clinical Summary Person Information Name: LOLA ANDINO [place] Age: 80 Years : 1940 Sex: Female Language: Nepalese PCP: LG OVIEDO DO Marital Status: Unknown Visit Id: Visit Reason: Shortness of breath; Chest pain; CHEST PAIN Speciality: Acuity: 2 Enc Type: Emergency Med Service: Emergency Arrival: 04/19/2021 14:36:15 Discharge: LOS: 000 04:12 Checkin: 04/19/2021 14:36:15 Checkout: 04/19/2021 18:48:10 Dispo Type: Admitted as IP to this [facility] EVENTS: Event Name Event Status Request [...] 04/19/2021 18:48:10 04/19/2021 18:48:10 04/19/2021 18:48:10 ADDRESS: [address] [place] [id number] [facility] DOC NOTES: MEDICAL INFORMATION: Prescriptions Given: PATIENT EDUCATION INFORMATION: Instructions: Follow up: DIAGNOSIS: 1:Chest pain; 2:Hypertension Normal [facility] ED Note-Physicianon 04-19-20 ED Note-Physician Basic [...] was treated and evaluated by the Physician [employer]oc Plans Intelligence Officer. The attending physician was in the Emergency [...] 14:59:00) Lymph Auto: 23.5 % (04/19/21 14:59:00) [place] Auto: 8.8 % (04/19/21 14:59:00) Eos Auto: 1.2 % (04/19/21 14:59:00) Basophil Auto: 0.8 % (04/19/21 14:59:00) Neutro Absolute: 2.9 E9/L (04/19/21 14:59:00) Lymph Absolute: 1 E9/L (04/19/21 14:59:00) [place] Absolute: 0.4 E9/L (04/19/21 14:59:00) Eos Absolute: 0.1 E9/L (04/19/21 14:59:00) Basophil Abs (more content not included)... Normal [facility] Comment on above: Result Comment: Elec tronically Signed By: Bailee Pierson PA-C\.br\Date and Time Signed: 04/19/21 18:49 EDT\.br\Electronically Co-Signed By: Flynn Mittal DO\.br\Date and Time Co-Signed: 04/19/21 20:39 EDT ED Patient Education Noteon 04-19-2021 ED Patient Education Note Normal [facility] ED Patient Summaryon 021 ED Patient Summary [place] [address] Patient Discharge Instructions Person Information Name: LOLA ANDINO Age: 80 Years Arrival Date: 04/19/2021 14:36:15 Discharge Diagnosis: 1:Chest pain; 2:Hypertension Primary Care Physician: LG OVIEDO DO Provider Information Primary Provider: Flynn Mittal DO Advanced Machine Cleaner:Bailee Pierson PA-C The exam and treatment you received in the Emergency Department were for an urgent problem and are not intended as complete care. It is important that you follow up with a doctor, nurse practitioner, or physician?s acute care nursing assistant for ongoing care. If your symptoms [...] opioids can be used to help relieve crjnuvkf-ai-uxnzzy pain and are often prescribed following a [...] be struggling with addiction, tell your health aged or disabled carer and ask for guidance or call [facility] National Helpline at 2-190-172-BTLO. b Source: [place] Department of Health and Human Services/Center for Disease Control & Prevention [facility] Medications Given: Medication (more content not included)... Normal [facility] PT & PTTon 04-19-2021 aPTT Coag (PPP) [Time] 34.2 second(s) Normal 25.1-36.5 [facility] Comment on above: Result Comment: Hepa rin therapeutic range (represented by Anti-Factor Xa activity of 0.2 - 0.4 U/mL) corresponds to PTT of 56.6 - 109.0 sec. Performed By: #### 2 272697, 34664295 #### [facility] [address] [place] [address] INR Coag (PPP) [Relative time] 1.0 {INR} Invalid Interpretation Code [facility] Comment on above: Result Comment: INR results are specifically intended to assess patients stabilized on long-term Anticoagulation therapy suggested INR?s ?Less Intensive Anticoagulation? 2.0 ? 3.0 Conventional Range 3.0 ? 4.5 Performed By: #### 2 418454, 29264401 #### [facility] [address] [place] [address] PT Coag (PPP) [Time] 11.7 second(s) Normal 10.2-12.9 [facility] Comment on above: Performed By: #### 2 078672, 38089773 #### [facility] [address] [place] [address] Troponin 0 Hr.on 04-19-2021 Troponin I.cardiac [Mass/Vol] 4.00 pg/mL Low 10.10-27.10 [facility] Comment on above: Result Comment: The 95% CI (Confidence Interval) PPV (Positive Predictive Value) for myocardial infarction in females is 38 pg/mL, in males 51 pg/mL. The results should be used in conjunction with clinical conditions of myocardial infarction. (Access High Sensitivity Troponin I Instructions For Use, [employer], March 2018) Performed By: #### 2 180549, [id number] #### [facility] [address] [place] [address] Troponin 3 Hr.on 04-19-2021 Troponin I.cardiac [Mass/Vol] 24.40 pg/mL Normal 10.10-27.10 [facility] Comment on above: Result Comment: The 95% CI (Confidence Interval) PPV (Positive Predictive Value) for myocardial infarction in females is 38 pg/mL, in males 51 pg/mL. The results should be used in conjunction with clinical conditions of myocardial infarction. (Access High Sensitivity Troponin I Instructions For Use, [employer], March 2018) Performed By: #### 2 134651, [id number] #### [facility] [address] [place] [address] Troponin 6 Hr.on 04-19-2021 Troponin I.cardiac [Mass/Vol] 21.50 pg/mL Normal 10.10-27.10 [facility] Comment on above: Result Comment: The 95% CI (Confidence Interval) PPV (Positive Predictive Value) for myocardial infarction in females is 38 pg/mL, in males 51 pg/mL. The results should be used in conjunction with clinical conditions of myocardial infarction. (Access High Sensitivity Troponin I Instructions For Use, [employer], March 2018) Performed By: #### 2 309448, [id number] #### [facility] [address] [place] [address] eGFRon 04-19-2021 GFR/1.73 sq M.predicted among blacks MDRD (S/P/Bld) [Vol rate/Area] mL/min/{1.73_m2} Normal >=59 [facility] Comment on above: Order Comment: Order added by Discern Expert. Result Comment: eGFR is race adjusted. AA=. Performed By: #### 2 850221, 3138041, 0954750, 33932473, 45832045, 70780191, 18195777 ####[facility] [address] [place] [address] GFR/1.73 sq M.predicted among non-blacks MDRD (S/P/Bld) [Vol rate/Area] 60 mL/min/1.73 m2 Normal >=59 [facility] Comment on above: Order Comment: Order added by Discern Expert. Result Comment: Psychologist Clinical brady kidney disease could be indicated at eGFR's of less than 60 mL/min/1.73m2. Kidney failure is indicated at less than 15 mL/min/1.73m2. Performed By: #### 2 728962, 3528625, 9767437, 92206132, 44784886, 97885344, 19727906 ####[facility] [address] [place] [address] Vital Signs Date Time Vital Sign Value Performing Clinician Facility 05-27-2025 10:49040 Body height 153.67 cm [employer] DO Work Phone: [facility] 05-27-2025 10:49-0400 Body mass index (BMI) [Ratio] 25 kg/m2 Lg Ball DO Work Phone: [facility] 05-27-2025 10:49-0400 Body weight 58.96 kg Lg Ball DO Work Phone: [facility] 05-27-2025 10:49-0400 Diastolic blood pressure 77 mm[Hg] Lg Ball DO Work Phone: [facility] 05-27-2025 10:49-0400 Heart rate 71 /min Lg [employer] [facility] DO Work Phone: [facility] 05-27-2025 10:49-0400 Respiratory rate 12 /min Lg Ball DO Work Phone: [facility] 05-27-2025 10:49-0400 Systolic blood pressure 200 mm[Hg] Lg Ball DO Work Phone: [facility] 05-07-2025 09:08-0400 Body height 153.67 cm Lg Ball DO Work Phone: [facility] 05-07-2025 09:08-0400 Body mass index (BMI) [Ratio] 25.1 kg/m2 Lg Ball DO Work Phone: [facility] 05-07-2025 09:08-0400 Body weight 59.42 kg Lg Ball DO Work Phone: [facility] 05-07-2025 09:08-0400 Diastolic blood pressure 73 mm[Hg] Lg Ball DO Work Phone: [facility] 05-07-2025 09:08-0400 Heart rate 61 /min Lg Ball DO Work Phone: [facility] 05-07-2025 09:08-0400 Respiratory rate 12 /min Lg Ball DO Work Phone: [facility] 05-07-2025 09:08-0400 Systolic blood pressure 171 mm[Hg] Lg Ball DO Work Phone: [facility] 04-16-2025 14:56-0400 Body height 153.67 cm Lg Ball DO Work Phone: [facility] 04-16-2025 14:56-0400 Body mass index (BMI) [Ratio] 24.7 kg/m2 Lg Ball DO Work Phone: [facility] 04-16-2025 14:56-0400 Body weight 58.28 kg Lg Ball DO Work Phone: [facility] 04-16-2025 14:56-0400 Diastolic blood pressure 77 mm[Hg] Lg Ball DO Work Phone: [facility] 04-16-2025 14:56-0400 Diastolic blood pressure 85 mm[Hg] Lg Ball DO Work Phone: [facility] 04-16-2025 14:56-0400 Heart rate 87 /min Lg Ball DO Work Phone: [facility] 04-16-2025 14:56-0400 Respiratory rate 12 /min Lg Ball DO Work Phone: [facility] 04-16-2025 14:56-0400 Systolic blood pressure 175 mm[Hg] Lg Ball DO Work Phone: [facility] 04-16-2025 14:56-0400 Systolic blood pressure 135 mm[Hg] Lg Ball DO Work Phone: [facility] 01-28-2025 08:32-0400 Body height 153.67 cm [facility] 01-28-2025 08:32-0400 Body mass index (BMI) [Ratio] 25.4 kg/m2 [facility] 01-28-2025 08:32-0400 Body weight 60.04 kg [facility] 01-28-2025 08:32-0400 Diastolic blood pressure 72 mm[Hg] [facility] 01-28-2025 08:32-0400 Heart rate 71 /min [facility] 01-28-2025 08:32-0400 Respiratory rate 12 /min [facility] 01-28-2025 08:32-0400 Systolic blood pressure 165 mm[Hg] [facility] 12-06-2024 10:39-0400 Body height 153.67 cm [facility] 12-06-2024 10:39-0400 Body mass index (BMI) [Ratio] 25.5 kg/m2 [facility] 12-06-2024 10:39-0400 Body weight 60.32 kg [facility] 12-06-2024 10:39-0400 Diastolic blood pressure 94 mm[Hg] [facility] 12-06-2024 10:39-0400 Heart rate 87 /min [facility] 12-06-2024 10:39-0400 Respiratory rate 12 /min [facility] 12-06-2024 10:39-0400 Systolic blood pressure 169 mm[Hg] [facility] 10-30-2024 08:28-0400 Body height 153.67 cm [facility] 10-30-2024 08:28-0400 Body mass index (BMI) [Ratio] 26.2 kg/m2 [facility] 10-30-2024 08:28-0400 Body weight 61.91 kg [facility] 10-30-2024 08:28-0400 Diastolic blood pressure 65 mm[Hg] [facility] 10-30-2024 08:28-0400 Heart rate 55 /min [facility] 10-30-2024 08:28-0400 Respiratory rate 12 /min [facility] 10-30-2024 08:28-0400 SaO2% (BldA) [Mass fraction] 98 % [facility] 10-30-2024 08:28-0400 Systolic blood pressure 130 mm[Hg] [facility] 05-02-2024 09:36-0400 Body height 153.67 cm [facility] 05-02-2024 09:36-0400 Body mass index (BMI) [Ratio] 27.8 kg/m2 [facility] 05-02-2024 09:36-0400 Body weight 65.77 kg [facility] 05-02-2024 09:36-0400 Diastolic blood pressure 73 mm[Hg] [facility] 05-02-2024 09:36-0400 Heart rate 65 /min [facility] 05-02-2024 09:36-0400 Respiratory rate 12 /min [facility] 05-02-2024 09:36-0400 Systolic blood pressure 130 mm[Hg] [facility] 03-22-2024 10:54-0400 Body height 153.67 cm [facility] 03-22-2024 10:54-0400 Body mass index (BMI) [Ratio] 27.6 kg/m2 [facility] 03-22-2024 10:54-0400 Body weight 65.37 kg [facility] 03-22-2024 10:54-0400 Diastolic blood pressure 89 mm[Hg] [facility] 03-22-2024 10:54-0400 Heart rate 71 /min [facility] 03-22-2024 10:54-0400 Respiratory rate 12 /min [facility] 03-22-2024 10:54-0400 Systolic blood pressure 139 mm[Hg] [facility] 02-28-2024 10:32-0400 Body height 153.67 cm [facility] 02-28-2024 10:32-0400 Body mass index (BMI) [Ratio] 27.7 kg/m2 [facility] 02-28-2024 10:32-0400 Body weight 65.48 kg [facility] 02-28-2024 10:32-0400 Diastolic blood pressure 71 mm[Hg] [facility] 02-28-2024 10:32-0400 Heart rate 82 /min [facility] 02-28-2024 10:32-0400 Respiratory rate 12 /min [facility] 02-28-2024 10:32-0400 Systolic blood pressure 180 mm[Hg] [facility] 12-22-2023 11:18-0400 Body height 153.67 cm [facility] 12-22-2023 11:18-0400 Body mass index (BMI) [Ratio] 28.6 kg/m2 [facility] 12-22-2023 11:18-0400 Body temperature 98.4 [degF] [facility] 12-22-2023 11:18-0400 Body weight 67.58 kg [facility] 12-22-2023 11:18-0400 Diastolic blood pressure 82 mm[Hg] [facility] 12-22-2023 11:18-0400 Heart rate 95 /min [facility] 12-22-2023 11:18-0400 SaO2% (BldA) [Mass fraction] 97 % [facility] 12-22-2023 11:18-0400 Systolic blood pressure 156 mm[Hg] [facility] 11-09-2023 14:06-0400 Body height 153.67 cm [facility] 11-09-2023 14:06-0400 Body mass index (BMI) [Ratio] 29.6 kg/m2 [facility] 11-09-2023 14:06-0400 Body weight 69.9 kg [facility] 11-09-2023 14:06-0400 Diastolic blood pressure 94 mm[Hg] [facility] 11-09-2023 14:06-0400 Heart rate 90 /min [facility] 11-09-2023 14:06-0400 Respiratory rate 12 /min [facility] 11-09-2023 14:06-0400 Systolic blood pressure 168 mm[Hg] [facility] 05-10-2023 09:00-0400 Body height 160.02 cm Lg Ball Other Located [facility] [employer] Other 05-10-2023 09:00-0400 Body mass index (BMI) [Ratio] 26.6 kg/m2 Lg Ball Other Loc[facility] [employer] Other 05-10-2023 09:00-0400 Body weight 68.13 kg Gl Ball Other [employer] [facility] [employer] Other 05-10-2023 09:00-0400 Diastolic blood pressure 78 mm[Hg] Lg Ball Other [employer] [facility] [employer] Other 05-10-2023 09:00-0400 Respiratory rate 12 /min Lg Ball Other [employer] [facility] [employer] Other 05-10-2023 09:00-0400 Systolic blood pressure 185 mm[Hg] Lg Ball Other [facility] Other 03-25-2023 13:30-0400 Body height 160.02 cm Lg Ball Other [employer] [facility] [employer] Other 03-25-2023 13:30-0400 Body mass index (BMI) [Ratio] 25.58 kg/m2 Lg Oviedo Other [facility] Other 03-25-2023 13:30-0400 Body weight 65.5 kg Lg Oviedo Other [facility] Other 03-25-2023 13:30-0400 Diastolic blood pressure 78 mm[Hg] Lg Oviedo Other [facility] Other 03-25-2023 13:30-0400 Respiratory rate 12 /min Lg Oviedo Other [facility] Other 03-25-2023 13:30-0400 Systolic blood pressure 187 mm[Hg] Lg Oviedo Other [facility] Other Encounters Encounter Date Encounter Type Care Provider Facility Start: 05-27-2025 End: 05-27-2025 ambulatory Lg Oviedo DO Work Phone: [facility] Work Phone: Start: 05-27-2025 End: 05-27-2025 Patient encounter procedure Lg Oviedo DO -[facility] Work Phone: Start: 05-13-2025 Non-patient / Non-visit Lg romeo DO -[facility] Work Phone: Start: 05-07-2025 End: 05-07-2025 ambulatory Lg Oviedo DO Work Phone: [facility] Work Phone: Start: 05-07-2025 End: 05-07-2025 Patient encounter procedure Lg Oviedo DO -[facility] Work Phone: Start: 04-16-2025 End: 04-16-2025 ambulatory Lg Ball DO Work Phone: [facility] Work Phone: Start: 04-16-2025 End: 04-16-2025 Patient encounter procedure Lg Oviedo [facility] Work Phone: Start: 03-26-2025 Non-patient / Non-visit Lg romeo [facility] Work Phone: Start: 02-06-2025 Non-patient / Non-visit Lg romeo [facility] Work Phone: Start: 01-28-2025 End: 01-28-2025 ambulatory [facility] Work Phone: Start: 01-28-2025 End: 01-28-2025 Patient encounter procedure [facility] Work Phone: Start: 12-06-2024 End: 12-06-2024 Patient encounter procedure [facility] Work Phone: Start: 10-31-2024 Non-patient / Non-visit [facility] Work Phone: Start: 10-30-2024 End: 10-30-2024 ambulatory [facility] Work Phone: Start: 10-30-2024 End: 10-30-2024 Patient encounter procedure [facility] Phys[facility] Work Phone: Start: 05-02-2024 End: 05-02-2024 ambulatory [facility] Work Phone: Start: 05-02-2024 End: 05-02-2024 Patient encounter procedure [facility] Phys[facility] Work Phone: Start: 04-27-2024 Non-patient / Non-visit [facility] Work Phone: Start: 03-22-2024 End: 03-22-2024 ambulatory [facility] Work Phone: Start: 03-22-2024 End: 03-22-2024 Patient encounter procedure [facility] Work Phone: Start: 02-29-2024 Non-patient / Non-visit [facility] Work Phone: Start: 02-28-2024 End: 02-28-2024 ambulatory [facility] Work Phone: Start: 02-28-2024 End: 02-28-2024 Patient encounter procedure [facility] Phys[facility] Work Phone: Start: 12-28-2023 End: 12-28-2023 ambulatory [facility] Work Phone: Start: 12-28-2023 End: 12-28-2023 Patient encounter procedure [facility] Phys[facility] Work Phone: Start: 12-22-2023 End: 12-22-2023 Patient encounter procedure [facility] Work Phone: Start: 11-09-2023 End: 11-09-2023 ambulatory [facility] Work Phone: Start: 11-09-2023 End: 11-09-2023 Patient encounter procedure [facility] Phys[facility] Work Phone: Start: 10-24-2023 Non-patient / Non-visit [facility] Work Phone: Start: 10-14-2023 End: 10-14-2023 ambulatory [facility] Work Phone: Start: 10-14-2023 End: 10-14-2023 Patient encounter procedure [facility] Work Phone: Start: 08-23-2023 End: 08-23-2023 ambulatory LORI H TIMMIS Not Available Start: 07-20-2023 End: 07-20-2023 ambulatory LORI H TIMMIS Not Available Start: 06-17-2023 End: 06-17-2023 ambulatory Lg Ball Other Located [facility] [employer] Other Start: 06-17-2023 Nursing evaluation o f patient and report Lg Oviedo [facility] Start: 05-19-2023 End: 05-19-2023 ambulatory Lg Oviedo Other [facility] Other Start: 05-19-2023 Telephone encounter Lg Oviedo [facility] Start: 05-17-2023 End: 05-17-2023 ambulatory Lg Oviedo Other [facility] Other Start: 05-17-2023 Telephone encounter Lg Ball [facility] Start: 05-12-2023 End: 05-12-2023 ambulatory Lg Oviedo Other [facility] Other Start: 05-12-2023 Telephone encounter Lg Ball [facility] Start: 05-10-2023 End: 05-10-2023 ambulatory Lg Oviedo Other [facility] Other Start: 05-10-2023 Patient encounter procedure Lg Oviedo [facility] Start: 04-18-2023 End: 04-18-2023 ambulatory Lg Oviedo Other [facility] Other Start: 04-18-2023 Telephone encounter Lg Ball [facility] Start: 04-07-2023 End: 04-07-2023 ambulatory Lg Oviedo Other [facility] Other Start: 04-07-2023 Telephone encounter Lg Ball [facility] Start: 04-05-2023 End: 04-05-2023 ambulatory Lg Ball Other [facility] Other Start: 04-05-2023 Telephone encounter Lg Ball [facility] Start: 04-01-2023 End: 04-01-2023 ambulatory Lg Ball Other [facility] Other Start: 04-01-2023 Telephone encounter Lg Ball [facility] Start: 03-25-2023 End: 03-25-2023 ambulatory Lg Oviedo Other [facility] Other Start: 03-25-2023 Office outpatient vi sit 15 minutes [facility] Start: 08-10-2022 End: 08-11-[address] LG OVIEDO Facility:[facility] Start: 05-06-2022 End: 05-07-[address] LG OVIEDO Facility:[facility] Start: 04-06-2022 End: 04-07-[address] LG OVIEDO Facility:[facility] Start: 01-06-2022 End: 01-07-[address] LG OVIEDO Facility:[facility] Procedures Date Procedure Procedure Detail Performing Clinician Start: 05-07-2025 CT soft tissue neck w con Lg Oviedo DO Work Phone: Plan of Treatment Date Care Activity Detail Author Comprehensive metabo lic 1999 panel - Serum or Plasma [facility] enter Comprehensive metabo lic 1999 panel - Serum or Plasma [facility] enter Comprehensive metabo lic 1999 panel - Serum or Plasma [facility] enter US Abdomen limited [facility] US scan of abdominal aorta F [facility] US Thyroid gland [facility] XR Chest 2 Views [facility] XR Chest 2 Views [facility] XR Knee - left 4 Views [facility] Immunizations Immunization Date Immunization Notes Care Provider Fa cili 04-17-2020 pneumococcal polysaccharide vaccine, 23 valent Lg Oviedo Other [facility] 11-28-2017 diphtheria, tetanus toxoids and acellular pertussis vaccine, unspecified formulation Lg Oviedo Other [facility] 10-25-2016 TD(adult) unspecifie d formulation Lg Oviedo DO Work Phone: [facility] 10-25-2016 tetanus and diphther ia toxoids, adsorbed, preservative free, for adult use (5 Lf of tetanus toxoid and 2 Lf of diphtheria toxoid) [facility] 10-25-2016 tetanus toxoid, redu tammy diphtheria toxoid, and acellular pertussis vaccine, adsorbed Lg Ball Other [facility] [employer] Other Payers Date Payer Category Payer Medicare [id number] 1960 Medicare [id number] 1940 Unknown [id number] 1940 Unknown [id number] [id number] 1940 Unknown [id number] [id number] [id number] 1940 Unknown [id number] 2.16.84 [id number] 1940 Unknown [id number] 1940 Unknown [id number] Medicare Medicare Outpatient [id number] Unknown [id number] 2.1 [id number] Unknown [facility] Health Claims [id number] Social History Date Type Detail Facility Sex Assigned At Located [facility] [employer] Other Start: 1940 Sex Assigned At Female F [facility] Start: 12-22-2023 Tobacco smoking stat us NDIS Never smoked tobacco (finding) [facility] Start: 10-30-2024 End: 01-28-2025 Sex Female (finding) [facility] Clinical Notes 11-28-2017 to 04-16-2025 Note Date [...] 2025 8:52am Weight loss acute April 8:52am [facility] Work Phone: 1(135) 398-766508-26-2025 Evaluation note* Diagnosis Onset Date Resolution Status Admit Date Abdominal aortic aneurysm acute April 16, 2025 2:39pm Hypertension acute April 16, 2025 2:39pm Pulmonary nodule acute March 232024 2:39pm Thyroid nodule acute March 2:39pm Weight loss acute April 16, 2025 2:39pm Viral syndrome noneactive March 2:39pm Abdominal aortic aneurysm acute May 07, 2025 8:52am Bronchiectasis acute May 07, 2025 8:52am Cervical lymphadenopathy acute May 07, 2025 8:52am Chronic venous insufficiency of lower extremity acute April 8:52am Hypertension acute May 072024 8:52am Mammogram declined acute 2024 8:52am Medicare annual wellness visit, subsequent acute April 8:52am Pulmonary nodule acute 2024 8:52am Subclinical hypothyroidism acute May 07, 2025 8:52am Thyroid nodule acute May 07, 2025 8:52am Weight loss acute April 8:52am Hypertension acute May 27, 2025 10:16am Left knee pain acute May 10:16am Primary osteoarthritis of knee acute May 27 10:16am [facility] Work Phone: 1(776) 366-575706-09-2025 Evaluation note* Diagnosis Onset Date Resolution Status Admit Date Abdominal aortic aneurysm acute January 28, 2025 8:18am Abdominal pain acute January 28, 2025 8:18am Hypertension acute January 28 8:18am Pulmonary nodule acute January 8:18am Thyroid nodule acute January 28, 2025 8:18am Weight loss acute January 28 8:18am [facility] Work Phone: 1(589) 424-165503-11-2025 Evaluation note* Diagnosis Onset Date Resolution Status [...] specified organisms noneactive December 06, 2024 10:06am [facility] Work Phone: [phone]) 747-721310-27-2023 Evaluation note* Encounter Date Diagnosis Assessment Notes Treatment Notes Treatment Clinical Notes May, Dysuria (ICD-10 - R30.0) [facility] Other 09-26-2023 Evaluation note* Encounter Date Diagnosis Assessment Notes Treatment Notes Treatment Clinical Notes Apr, Pulmonary nodule (ICD-10 - R91.1) CXR 6mm - 04/2021, CT small nodules - 04/2022 CT small nodules, stable - 04/2023 [facility] Other 09-19-2023 Evaluation note* Encounter Date Diagnosis [...] medication use (ICD-10 - Z79.899) Check labs [facility] Other 08-15-2023 Evaluation note* Encounter Date Diagnosis Assessment Notes Treatment Notes Treatment Clinical Notes Mar, Dizziness (ICD-10 - R42) [facility] Other 08-11-2023 Evaluation note* Encounter Date Diagnosis Assessment Notes Treatment Notes Treatment Clinical Notes Mar, Claustrophobia (ICD-10 - F40.240) [facility] Other 08-04-2023 Evaluation note* Encounter Date Diagnosis [...] related to other complaints or separate problem [facility] Other 07-22-2022 Note From: Genesis Denny To: HV - Administrative; Sent: 05/20/2021 08:15:18 EDT Show up: 12/18/2021 08:15:00 EDT Subject: 8 month follow up Due Date/Time: 01/17/2022 08:15:00 EDT Reminder/Recall 8 month follow up with Dr. Jacques (December) tried calling twice and patient hung up on my both times after i said hello. [facility]09-29-2021 Note From: Genesis Denny To: HV - Administrative; Sent: 05/20/2021 08:14:37 EDT Show up: 08/19/2021 07:14:00 EST Subject: 4 month follow up Due Date/Time: 09/19/2021 07:14:00 EST Reminder/Recall 4 month follow up with Haley (2021)[facility]08-30-2021 NoteAdmission Information Admitting Physician - MARLEN [...] no EKG changes. Pt was seen by [facility] cardiology, recommended outpatient stress test and started on lisinopril 5 mg po q day for uncontrolled HTN. pt with some complaints of dysuria, negative UA, if persists to follow up with urology outpatient. Pt discharged home in improved condition to follow up with PCP and [facility] cardiology outpatient. d/w patient and daughter at [...] 14:59:00) Lymph Auto: 23.5 % (04/19/21 14:59:00) [place] Auto: 8.8 % (04/19/21 14:59:00) Eos Auto: 1.2 % (04/19/21 14:59:00) Basophil Auto: 0.8 % (04/19/21 14:59:00) Neutro Absolute: 2.9 E9/L (04/19/21 14:59:00) Lymph Absolute: 1 E9/L (04/19/21 14:59:00) [place] Absolute: 0.4 E9/L (04/19/21 14:59:00) Eos Absolute: [...] aspirin 81 mg O (more content not included)...[facility]Result Comment: Electronically Signed By: ÁNGELA SINHA, Patrick\.br\Date and Time Signed: 04/20/21 13:09 [id number] NoteChief Complaint Sharp pains in chest weakness [...] 14:59:00) Lymph Auto: 23.5 % (04/19/21 14:59:00) [place] Auto: 8.8 % (04/19/21 14:59:00) Eos Auto: 1.2 % (04/19/21 14:59:00) Basophil Auto: 0.8 % (04/19/21 14:59:00) Neutro Absolute: 2.9 E9/L (04/19/21 14:59:00) Lymph Absolute: 1 E9/L (04/19/21 14:59:00) [place] Absolute: 0.4 E9/L (04/19/21 14:59:00) Eos Absolute: [...] = 1 tab(s), Tab-Chew, (more content not included)...[facility]Result Comment: Electronically Signed By: Susanne SINHA, Andre\.br\Date and Time Signed: 04/19/21 21:01 [id number] History general Narrative - Reported* Type Description Date Medical History Bronchiectasis without complicat ion Medical History Essential hypertension Medical History Elevated cholesterol Surgical History BTL 11/28/2017 Hospitalization History see surgical history [facility] Other 04-09-2018 History general Narrative - Reported* Type Description Date Medical History Bronchiectasis without complicat ion Medical History Essential hypertension Medical History Elevated cholesterol Medical History BRVO left eye Surgical History BTL 11/28/2017 Hospitalization History see surgical history [facility] Other Evaluation noteNo InformationNort [employer] Other Evaluation noteNo assessment information available [facility] Work Phone: Evaluation note* Diagnosis Onset Date Resolution Status Bronchiectasis acute Hypertension acute Pulmonary nodule acute Suspected sleep apnea acute Fatigue noneactive [facility] Work Phone: Evaluation note* Diagnosis Onset Date Resolution Status Bronchiectasis acute Hypertension acute Pulmonary nodule acute Suspected sleep apnea acute Fatigue noneactive Hypertension acute Left knee pain acute Acute bronchitis due to other specified organisms noneactive [facility] Work Phone: Evaluation note* Diagnosis Onset Date Resolution Status Hypertension acute Left knee pain acute Acute bronchitis due to other specified organisms noneactive Anemia acute Bronchiectasis acute Chronic venous insufficiency of lower extremity acute Hypertension acute [facility] Work Phone: Evaluation note* Diagnosis Onset Date Resolution Status Anemia acute Bronchiectasis acute Chronic venous insufficiency of lower extremity acute Hypertension acute Hypertension acute Left knee pain acute Primary osteoarthritis of knee acute [facility] Work Phone: Evaluation note* Diagnosis Onset Date Resolution Status Anemia acute Bronchiectasis acute Chronic venous insufficiency of lower extremity acute Hypertension acute Hypertension acute Left knee pain acute Primary osteoarthritis of knee acute Hypertension acute Primary osteoarthritis of knee acute [facility] Work Phone: Evaluation note* Diagnosis Onset Date Resolution Status Admit Date Anemia acute October 30 8:26am Bronchiectasis acute October 8:26am Chronic venous insufficiency of lower extremity acute October 30, 2024 8:26am Hypertension acute October 30, 2024 8:26am Primary osteoarthritis of knee acute October 30, 2024 8:26am Pulmonary nodule acute October 302024 8:26am [facility] Work Phone: Reason for referral (narrative)* Reason Referral for SNHL, t innitus, otalgia/headache and dizziness Diagnosis 1 Tinnitus, right ear (H93.11) Diagnosis 2 Sensorineural hearin g loss, unilateral, right ear, 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 Clinical Notes Include MRI Located Within [facility] [employer] Other Reason for referral (narrative)No reason for referral [facility] Summary Purpose Family History Relationship [...] nt May 07, 2025 8:52am Pulmonary nodule Jada 16th, 2025 8:52am Thyroid nodule May 07, 2025 8:52am Weight loss May 07, 2025 8:52am Chief Complaint Admit Date fatigue April 16, 2025 2: 39pm Wellness May 07, 2025 8:52am left knee injection May 27, 2025 10 :16am Reason for Visit Admit Date Abdominal aortic aneurysm April 16, 2 025 2:39pm Hypertension April 16, 2025 2: 39pm Pulmonary nodule April 16, 2025 2: 39pm Thyroid nodule April 16, 2025 2: 39pm Weight loss April 16, 2025 2: 39pm Viral syndrome April 16, 2025 2: 39pm Abdominal aortic aneurysm April 8:52am Bronchiectasis May 07, 2025 8:52am Cervical lymphadenopathy May 07, 2025 8:52am Chronic venous insufficiency of lower ex tremity May 07, 2025 8:52am Hypertension May 07, 2025 8:52am Mammogram declined May 07, 2025 8:52am Medicare annual wellness visit, subseque nt May 07, 2025 8:52am Pulmonary nodule May 07, 2025 8:52am Subclinical hypothyroidism April 8:52am Thyroid nodule May 07, 2025 8:52am Weight loss May 07, 2025 8:52am Hypertension May 27, 2025 10 :16am Left knee pain May 27, 2025 10 :16am Primary osteoarthritis of knee May 272024 10:16am Additional Source Comments INFORMATION SOURCE (unrecogn ized section and content) DATE CREATED AUTHOR 03/14/2022 [facility] DATE CREATED AUTHOR AUTHOR'S ORGANIZ ATION 08/18/2022 [facility] DATE CREATED AUTHOR AUTHOR'S ORGANIZ ATION 08/23/2023 [facility] EPIC REASON FOR VISIT [...] 2025 End: April 16, 2025 Lg Oviedo , DO Attending Provider Active Sta rt: April 16, 2025 End: April 16, 2025 Team Status: Inactive Member Role Status Dean Oviedo DO Primary Care Provider Active Start: May 07, 2025 End: May 07, 2025 Lg Oviedo , DO Attending Provider Active Sta rt: May 07, 2025 End: May 07, 2025 Team Status: Inactive Member Role Status Daen Oviedo DO Primary Care Provide r, Attending [...] Status: Inactive Member Role Status Dates Lg Ball , DO Primary Care Provide r, Attending Provider Active Start: October 30, 2024 End: October 30, 2024 Team Status: Active Member Role Status Dean Oviedo , DO Primary Care Provide r, Attending Provider Active Start: October 31, 2024 Team Status: Inactive Member Role Status Dean Oviedo , DO Primary Care Provide r, Attending Provider Active Start: December 06, 2024 End: December 06, 2024 Team Status: Inactive Member Role Status Dean Oviedo , DO Primary Care Provide r, [...] Status: Active Member Role Status Dean Oviedo , DO Primary Care Provider Active Start: May 13, 2025 Lg Oviedo , DO Attending Provider Active Sta rt: May 13, 2025 Team Status: Inactive Member Role Status Dean Oviedo , DO Primary Care Provider Active Start: May 27, 2025 End: May 27, 2025 Lg Oviedo , DO Attending Provider Active Sta rt: May 27, 2025 End: May 27, 2025 Goals (unrecognized section and content) Goals [...] BE BASED ON THE PRIMARY CLINICAL RECORDS. [facility] [employer] provides no warranty or guarantee of the accuracy or completeness of information in this document.
--- NOTE | 2025-06-07 08:30 | CT_ITS ---
The [address] [address] Patient Name: LOLA ANDINO MRN: [id number] date: 1940 Sex: F Assigned Patient Location: CT Current Patient Location: CT Accession/Order Number: [id number] Exam Date: 06/07/2025 09:30 Report Date: 06/07/2025 10:06 At the request of: HALIMA HONG DO Procedure: CT abdomen pelvis wo con CT ABDOMEN AND PELVIS WITHOUT CONTRAST COMPARISON: None CLINICAL DATA: Abdominal pain, constipation and weight loss. Spiral images were obtained through the abdomen and pelvis without intravenous contrast. Patient did receive oral contrast. This CT exam was performed using one or more following dose reduction techniques: Automated exposure control, adjustment of the mA and/or kV according to patient size, or use of iterative reconstruction technique. Limited cuts through the lung bases show minimal atelectasis or scarring. No intrahepatic abnormalities are identified. No calcified gallstones are seen. The spleen and pancreas show no acute findings. There is slight adrenal limb thickening. No renal calculi or hydronephrosis are noted. No ureteral dilatation or stones are seen. There is moderate atherosclerotic plaque involving the aorta, iliac and proximal visceral arteries. Small lymph nodes are visualized. No ascites is seen. The small bowel loops are normal caliber. Moderate stool is noted along the colon. There are left-sided colonic diverticula. S-shaped thoracolumbar scoliotic curvature and degenerative changes are present spine Images through the pelvis show normal caliber small bowel loops. There is mild distal colonic stool. Additional descending and sigmoid diverticula are noted, without associated active inflammation. The appendix is not definite seen. There is a suspected right ovarian cyst measuring approximately 3.5 cm in size. No ascites is seen. There are no urinary bladder abnormalities for the degree of distention. CT/CT abdomen pelvis wo con IMPRESSION: NO OBSTRUCTIVE UROPATHY OR STONE DISEASE. DIVERTICULOSIS. MODERATE COLONIC STOOL. RIGHT OVARIAN CYST. Impression dictated by: Laisha Ferrer M.D. 06/07/2025 10:06 AM Dictation Location: [place] [address] Electronically authenticated by: [id number] Y Date: 06/07/2025 10:06
== END 2025-06-07 08:25 | disposition home or self-care (01) ==
LOC: CT 08:24
PROVIDERS: PCP Internal Medicine; Visit Provider Internal Medicine
DX: R10.13 Epigastric pain (principal); R63.4 Abnormal weight loss; K57.90 Diverticulosis of intestine, part unspecified, without perforation or abscess without bleeding; N83.201 Unspecified ovarian cyst, right side
CPT/HCPCS: 74176